=== PATIENT | male | born 1975 | race Caucasian/White ===

== ENCOUNTER 2018-06-13 20:36 | Emergency (ER) | payer MEDICAID, SELFPAY ==
[2018-06-13] VITALS (9 sets, daily range): BP systolic 98–128; BP diastolic 57–71; PULSE 97–115; RESP 12–32; TEMP 37.1–39.3; O2SAT 95–100
[2018-06-13] MEDS: Acetaminophen 500 MG TAB 1000 MG PO (20:49)
[2018-06-13] MEDS: Normal Saline 1,000 ML 1000 ML IV (20:50)
--- NOTE | 2018-06-13 20:50 | DI.RPTCT_ITS ---
SYMPTOM/DIAGNOSIS: SOB, , ELEVATED LFT'S, ABD PAIN PA AND LATERAL CHEST: There is a questionable faint area of infiltration in the left lower lobe suggested only on the frontal examination. An 8 mm. nodular density in the right suprahilar region is unchanged when compared with previous images. There is no pleural effusion. There is no pneumothorax. The heart is within normal limits in size. The mediastinum and tracheal air column are intact. Degenerative changes involving the dorsal spine are of mild degree. SUMMARY: Question area of infiltration involving the left lower lobe which could represent atelectasis or infection. An 8 mm. right suprahilar density is unchanged when compared with previous images. ABDOMEN AND PELVIC CT: The study was carried out with an intravenous injection of 100 cc's of Omnipaque 350. There is some linear atelectasis and/or scarring involving the lung bases. Periportal edema is noted within the liver. The liver is enlarged measuring up to 17.5 cm. craniocaudal. Gallbladder wall prominence is demonstrated and pericholecystic fluid is identified. The pancreas is unremarkable. There is no evidence of ductal dilatation. The spleen is unremarkable. There is some thickening of the left adrenal unchanged when compared with previous images. The kidneys are unremarkable. The appendix is normal. The bladder is unremarkable. The reproductive organs as visualized are unremarkable. The prostate is heterogeneous. There is no evidence of free air or free fluid in the intraperitoneal space. Degenerative changes involving the skeleton are noted. No acute bony abnormality is seen. The soft tissues are unremarkable. There is no evidence of an aortic aneurysm. There is no evidence of lymphadenopathy. SUMMARY: Periportal edema in the liver is noted. This finding can be seen in acute hepatitis, congestive heart failure, progressive hydration or secondary to cardiac congestion. Given the hepatomegaly, the findings should be correlated with concern for acute hepatitis. There is gallbladder wall prominence and pericholecystic fluid. This may be related to the liver abnormalities but should be correlated with any concern for acute cholecystitis. If indicated, an ultrasound could be obtained. Note is made of some wall prominence in the distal esophagus. This may be related to ingested products but should be correlated with any concern for hemorrhage. There is wall prominence in some small bowel loops in the upper abdomen. This could be related to the liver abnormalities or enteritis. Note is also made of a 5 mm. left pulmonary nodule. If this is a low risk patient, then a follow up chest CT in 6-12 months could be obtained. If this is a high risk patient, the initial follow up could be obtained at 6- 12 months and if unchanged at that time, then 18-24 months.
--- NOTE | 2018-06-13 20:51 | ED.GENADUL_ITS ---
Disposition Clinical Impression: Hepatitis, CAP (community acquired pneumonia) Disposition: HOME Condition: Stable Instructions: Community Acquired Pneumonia (ED) Additional Instructions: you are being treated for community acquired pneumonia. You were also found to have hepatitis. You need to follow up with your primary care provider within a week. You also need to inform them of the nodules on your xray as these will need repeat xrays/cat scans if you have nauea/vomit take zofran. For fever or pain take ibuprofen, follow dosing instructions on packaging. Avoid tylenol for now if you have severe worsening pain or persistent vomit return to the emergency department Prescriptions: Ondansetron ODT [Zofran Odt] 4 mg PO Q8H PRN PRN #30 tabef PRN Reason: Nausea / Vomiting Levofloxacin 750 mg PO DAILY #6 tablet Medical Decision Making - Lab Data Results reviewed for labs ordered during visit: Yes - Radiology Data Radiology results: report reviewed, image reviewed - Medical Decision Making PT here with reports of feeling warm for 4 days but has been working outside in hot weather. HAs shortness of breath but no cough, will xray to eval for pna, eval for uti and also eval for rhabdo and monitor. 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 No murmur or ivdu and no stigmata of endocarditis pt feeling better, hr now 90, is ambulating on his own with steady gait, awaiting albs and imaging labs show elevated lfts, lactate 4 which could be from dehydration, will recheck after hydration. He continues to feel well, will image given the elevated lfts pt's ct shows periportal edema in the liver, some gallbladder wall prominence and pericholceystic fluid which is likely related to the liver abnormalities. HE has absolutely no abdominal pain on exam and negative iwseman's sign so doubt acute cholecystitis. They also note increased denisty in distal esophagus/ proximal stomach that is ingeted products or blood products. HAs heme neg stool and no melena and stable h/h so doubt gi bleed. Has pulmonary nodules as well. He now states he has used IV drugs in the past, last 4-6 months ago. I suspect he likely has hepatitis C. His labs are not significantly abnormal to require hospitalization and he is tolerating PO. I will prescribe abx to cover for CAP based on his xray findings and informed him of his nodules. He was informed he needs to f/u with his pcp within a week for the hepatitis and pneumonia and return precautions given - Differential Diagnosis rhabdo, heat stroke, pneumonia, tick borne illness History of Present Illness - General Chief complaint: SOB Stated complaint: SOB Time Seen by Provider: 06/13/18 20:37 Source: patient Mode of arrival: wheelchair Limitations: no limitations - History of Present Illness Initial comments: 43 yo male with no chronic medical conditions comes in with chief complaint of feeling warm intermittently for 4 days. 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 He denies cough though states he has some mild. He denies abdominal pain, n/v, rashes or recent travel MD Complaint: feeling warm Onset/Timin -: days(s) Improves with: none Worsens with: none Associated Symptoms: weakness Treatments Prior to Arrival: none - Related Data Levofloxacin 750 mg PO DAILY #6 tablet 06/13/18 Ondansetron ODT [Zofran Odt] 4 mg PO Q8H PRN PRN #30 tabef 06/13/18 Allergies Allergy/AdvReac Type Severity Reaction Status Date / Time gabapentin Allergy Intermediate Itching, Unverified 06/13/18 20:41 jumpy Review of Systems Constitutional: fever Respiratory: shortness of breath. denies: cough Cardiovascular: denies: chest pain Gastrointestinal: denies: abdominal pain, nausea, vomiting Neurological: denies: headache Comment: All other systems reviewed and negative Past Medical History - Past Medical History Medical history: no medical history Vitiligo Surgical history: non-contributory - Social History Alcohol use: occasionally Drug use: marijuana General Exam - General Limitations: no limitations General appearance: alert, in no apparent distress - Head Head exam: Present: atraumatic - Eye Eye exam: Present: normal apperance - ENT ENT exam: Present: mucous membranes moist - Neck Neck exam: Present: normal inspection, full ROM. Absent: meningismus - Respiratory Respiratory exam: Present: normal lung sounds bilaterally. Absent: respiratory distress - Cardiovascular Cardiovascular Exam: Present: normal rhythm, tachycardia, normal heart sounds - GI/Abdominal GI/Abdominal exam: Present: soft. Absent: distended, tenderness - Extremities Exam Extremities exam: Present: normal inspection. Absent: pedal edema, calf tenderness - Neurological Exam Neurological exam: Present: alert, oriented X3. Absent: motor sensory deficit - Psychiatric Psychiatric exam: Present: anxious - Skin Skin exam: Present: warm Course Vital Signs - 24 hr 06/13/18 06/13/18 20:39 20:42 Temperature 102.7 F H Pulse 115 H Respiratory 32 H 32 H Rate Blood Pressure 128/71 Pulse Oximetry 100
[2018-06-13 20:52] LABS: Lactate-non-spesis 4.3 mmol/L (0.6-1.4)
[2018-06-13 20:57] LABS: Abs Immature Grans 0.03 k/cumm (0.0-0.09); Absolute Basophil Count 0.02 k/cumm (0.0-0.2); Absolute Eosinophil Count 0.06 k/cumm (0.0-0.7); Absolute Lymphocyte Count 0.39 k/cumm (1.2-3.4); Absolute Monocyte Count 0.03 k/cumm (0.11-0.7); Absolute Neutrophil Count 2.75 k/cumm (1.2-6.7); Basophils % 0.6; Eosinophils % 1.8; HCT 45.4 % (40.0-50.0); HGB 15.9 g/dL (13.5-17.5); Immature Grans % 0.9; Lymphocytes % 11.9; Mean Corpuscular Hemoglobin 31.3 pg (27.0-33.0); Mean Corpuscular Volume 89.4 fL (80-95); Mean Platelet Volume 10.6 fL (8.0-11.0); Monocytes % 0.9; Neutrophils % 83.9; Platelet Count 113 x1000/uL (130-400); RBC 5.08 m/cumm (4.50-6.00); RBC Distribution Width 13.6 % (11.8-14.1); White Blood Cell Count 3.28 k/cumm (4.4-10.8)
[2018-06-13 21:10] LABS: ALT 156 U/L (12-78); AST 107 U/L (15-37); Albumin 3.1 g/dL (3.4-5.0); Alkaline Phosphatase 359 U/L (46-116); Anion Gap 14.9 mmol/L (3-11); BUN 12 mg/dL (7-18); Bilirubin, Total 1.3 mg/dL (0.2-1.0); CO2 21.1 mmol/L (21.0-32.0); CREATININE 1.38 mg/dL (0.70-1.30); Calcium 8.7 mg/dL (8.5-10.1); Chloride 98 mmol/L (98-107); Creatine Kinase 51 U/L (39-308); Estimated GFR 56.78 (mL/min/1.73m2); Glucose 152 mg/dL (70-100); Magnesium 1.6 mg/dL (1.8-2.4); Sodium 134 mmol/L (136-145); Total Protein 6.8 g/dL (6.4-8.2)
[2018-06-13] MEDS: Lactated Ringers 1,000 ML 1000 ML IV ×2 (21:10→22:22)
[2018-06-13 21:15] LABS: Potassium 2.9 mmol/L (3.5-5.1)
[2018-06-13] MEDS: Potassium Chloride 20 MEQ TABCR 40 MEQ PO (21:31)
--- NOTE | 2018-06-13 21:36 | DI.VRAD_ITS ---
EXAM: XR Chest, 2 Views CLINICAL HISTORY: 43 years old, male; Signs and symptoms; Other: Shortness of breath TECHNIQUE: Frontal and lateral views of the chest. COMPARISON: CR - RIGHT RIBS TO INCLUDE CXR 2016-10-12 15:35 FINDINGS: Lungs: Hilar shadows unchanged. Seen only on the frontal radiograph are left retrocardiac streaky opacities that could represent atelectasis or infection. An 8mm nodular density in the right suprahilar region is unchanged. Comparison with any older imaging studies to document long-term stability would be beneficial. Pleural space: No pneumothorax. Heart: Cardiac shadow unchanged. Mediastinum: Mediastinal contour is unchanged. Bones/joints: Skeletal degenerative changes. IMPRESSION: 1. Seen only on the frontal radiograph are left retrocardiac streaky opacities that could represent atelectasis or infection. 2. An 8mm nodular density in the right suprahilar region is unchanged. Comparison with any older imaging studies to document long-term stability would be beneficial. 3. Other findings as above. Dictated and Authenticated by: Blossom Valero MD. Ordering:MAX BLAKE MD
[2018-06-13 21:48] LABS: Bilirubin Negative (Negative); Blood Negative (Negative); Clarity Clear; Glucose Negative (Negative); Ketones Negative (Negative); Leukocyte Esterase Negative (Negative); Nitrite Negative (Negative); Specific Gravity <= 1.005 (1.005-1.025); pH 5.5 (5-8)
[2018-06-13] MEDS: Omnipaque 350 MG/ML 100 ML BTL IV (22:37)
[2018-06-13 22:53] LABS: Lactate-non-spesis 2.2 mmol/L (0.6-1.4)
--- NOTE | 2018-06-13 22:57 | DI.VRAD_ITS ---
EXAM: CT Abdomen and Pelvis With Intravenous Contrast CLINICAL HISTORY: 43 years old, male; Signs and symptoms; Other: Elevated lfts, abdominal pain TECHNIQUE: Axial computed tomography images of the abdomen and pelvis with intravenous contrast. All CT scans at this facility use at least one of these dose optimization techniques: automated exposure control; mA and/or kV adjustment per patient size (includes targeted exams where dose is matched to clinical indication); or iterative reconstruction. Coronal and sagittal reformatted images were created and reviewed. CONTRAST: 100 mL of omnipaque 350 administered intravenously. COMPARISON: CT - RENAL COLIC WO CONTRAST 2011-08-05 08:29 FINDINGS: Lung bases: Linear atelectasis or scarring at the lung bases. Series 4 image 3 demonstrates a 6 mm left pulmonary nodule. ABDOMEN: Liver: There is periportal edema within the liver. There is hepatomegaly with the liver measuring 17.5 cm craniocaudally. Gallbladder and bile ducts: There is some gallbladder wall prominence and pericholecystic fluid. Pancreas: Unremarkable. No mass. No ductal dilation. Spleen: Unremarkable. No splenomegaly. Adrenals: Bulky appearance to the left adrenal gland is unchanged. Kidneys and ureters: Unremarkable. No solid mass. No hydronephrosis. Stomach and bowel: Evaluation of the bowel is limited secondary to the lack of oral contrast. There is increased density within the distal esophagus and proximal stomach which may be related to ingested products but should be correlated with any concern for blood products. There is wall prominence of the distal esophagus and proximal stomach which should be correlated with any concern for inflammation or other abnormalities.There is wall prominence to the some small bowel in the left hemiabdomen which can be seen with liver abnormalities or enteritis in the appropriate clinical setting.There is a small amount of adjacent stranding. PELVIS: Appendix: Normal appendix. Bladder: Urinary bladder within normal limits. Reproductive: Heterogeneous prostate. ABDOMEN and PELVIS: Intraperitoneal space: Unremarkable. No free air. No significant fluid collection. Bones/joints: Skeletal degenerative changes. No acute fracture. No dislocation. Soft tissues: Unremarkable. Vasculature: Unremarkable. No abdominal aortic aneurysm. Lymph nodes: There is a small periadrenal lymph node measuring 9 mm on short axis. IMPRESSION: 1. Periportal edema in the liver. This can be seen with acute hepatitis, congestive cardiac failure, aggressive hydration, or secondary cardiac congestion. Given the hepatomegaly, finding should be correlated with concern for acute hepatitis. 2. Some gallbladder wall prominence and pericholecystic fluid. This may be related to the liver abnormalities but should be correlated with any concern for cholecystitis. If indicated, ultrasound could be considered. 3. Increased density within the distal esophagus/proximal stomach. This may be related to ingested products but should be correlated with any concern for blood products. There is wall prominence of the distal esophagus/proximal stomach. 4. Wall prominence to some of the small bowel in the left hemiabdomen. This can be seen in the setting of liver abnormalities or enteritis in the appropriate clinical setting. There is a small amount of adjacent fat stranding. 5. 5 mm left pulmonary nodule. For low-risk patients recommend follow-up chest CT at 6-12 months. If unchanged consider an additional follow-up CT at 18-24 months. For high-risk patients (smoking history or other known risk factors) initial follow-up chest CT at 6-12 months and if unchanged, 18-24 months. Other findings as above. Dictated and Authenticated by: Blossom Valero MD. Ordering:MAX BLAKE MD
[2018-06-13] MEDS: LEVOFLOXACIN 500 MG, LEVOFLOXACIN 250 MG 750 MG PO (23:30)
--- NOTE | 2018-06-14 15:25 | PDOC.ERCMPRO ---
Care Management Progress Note 06/14-Dr. Vega requested assistance with a PCP (Gilberto) f/u in one week for hepatitis. Referral faxed to [facility].
[2018-06-15 11:37] LABS: Hepatitis A Antibody IgM Negative (NEGAT); Hepatitis B Core Antibody Negative (NEGAT); Hepatitis B surface Ag Negative (NEGAT); Hepatitis C Ab w Rflx HCV PCR Reactive (NEGAT)
[2018-06-15 12:56] LABS: Lyme Ab w Rflx to Lyme Confirm Negative
[2018-06-15 23:26] LABS: Anaplasma phagocytophilum Negative (Negative); B. miyamotoi PCR Negative (Negative); Babesia divergens/MO-1 Negative (Negative); Babesia duncani Negative (Negative); Babesia microti Negative (Negative); Ehrlichia chaffeensis Negative (Negative); Ehrlichia ewingii/canis Negative (Negative); Ehrlichia muris eauclairensis Negative (Negative)
== END 2018-06-13 23:40 | disposition home or self-care (01) ==
PROVIDERS: Emergency Provider Emergency Medicine; PCP Nurse Practitioner
DX: B17.9 Acute viral hepatitis, unspecified (principal); J18.9 Pneumonia, unspecified organism; R91.1 Solitary pulmonary nodule; R93.2 Abnormal findings on diagnostic imaging of liver and biliary tract
CPT/HCPCS: 36415; 80053; 82550; 86704; 86709; 86803; 87340; 96360; 96361; 99285; 71046; 74177; 81003; 83605; 83735; 85025; 86618; 87522; 87798; J3490

== ENCOUNTER → 2018-06-29 17:53 | Outpatient (REF) | payer MEDICAID, SELFPAY ==
[2018-06-29 18:58] LABS: BUN 13 mg/dL (7-18); CREATININE 0.97 mg/dL (0.70-1.30); Calcium 8.5 mg/dL (8.5-10.1); Glucose 94 mg/dL (70-100)
[2018-06-29 18:59] LABS: ALT 116 U/L (12-78); AST 83 U/L (15-37); Albumin 3.4 g/dL (3.4-5.0); Alkaline Phosphatase 115 U/L (46-116); Anion Gap 11.2 mmol/L (3-11); Bilirubin, Total 0.6 mg/dL (0.2-1.0); CO2 24.8 mmol/L (21.0-32.0); Chloride 103 mmol/L (98-107); Potassium 3.8 mmol/L (3.5-5.1); Sodium 139 mmol/L (136-145)
[2018-07-03 10:46] LABS: HIV-1/2 Ag & Ab Screen Negative (NEGAT)
[2018-07-03 21:48] LABS: HCV Genotype 1a (Undetected)
== END ==
LOC: NCHCN 17:53
PROVIDERS: PCP Nurse Practitioner; Visit Provider Nurse Practitioner
DX: B19.20 Unspecified viral hepatitis C without hepatic coma (principal); Z11.4 Encounter for screening for human immunodeficiency virus [HIV]
CPT/HCPCS: 80053; 87389; 87521

== ENCOUNTER 2018-07-12 23:21 | Emergency (ER) | payer MEDICAID, SELFPAY ==
--- NOTE | 2018-07-12 00:10 | DI.RAD_ITS ---
SYMPTOM/DIAGNOSIS: FEVER, CHILLS, COUGH PA AND LATERAL CHEST: Comparison is made with 06/13/18. The heart size is normal. The lungs show mild scarring but are otherwise clear. There is stable thoracic kyphosis without evidence of compression fractures. Endplate osteophytes are seen. IMPRESSION: No acute abnormality.
[2018-07-12 23:31] VITALS: BP 126/70; PULSE 116; RESP 22; TEMP 38.2; O2SAT 98
[2018-07-12 23:38] VITALS: PULSE 109; RESP 26; O2SAT 96
[2018-07-12 23:40] VITALS: PULSE 110; RESP 24; O2SAT 97
[2018-07-12 23:45] VITALS: BP 115/69; PULSE 111; PULSE 113; RESP 37; O2SAT 96
[2018-07-12 23:50] VITALS: PULSE 105; RESP 13; O2SAT 97
[2018-07-13] VITALS (9 sets, daily range): BP systolic 105–109; BP diastolic 60–65; PULSE 88–106; RESP 12–22; TEMP 37.5; O2SAT 92–100
--- NOTE | 2018-07-13 00:22 | DI.VRAD_ITS ---
EXAM: XR Chest, 2 Views CLINICAL HISTORY: 43 years old, male; Signs and symptoms; Cough and fever and other: Chills TECHNIQUE: Frontal and lateral views of the chest. COMPARISON: CR - RIGHT RIBS TO INCLUDE CXR 10/12/2016 3:35 PM FINDINGS: Lungs: Unremarkable. No consolidation. Pleural space: Unremarkable. No pneumothorax. Heart: Unremarkable. No cardiomegaly. Mediastinum: Unremarkable. Bones/joints: Unremarkable. Bilateral nipple shadows. IMPRESSION: No acute findings. Dictated and Authenticated by: Serjio Calix MD. Ordering:MAYDA CRESPO MD
[2018-07-13] MEDS: Ketorolac 30 MG/ML VIAL IVP (00:25)
[2018-07-13] MEDS: Normal Saline 1,000 ML 2000 ML IV (00:25)
[2018-07-13 00:30] LABS: Abs Immature Grans 0.02 k/cumm (0.0-0.09); Absolute Basophil Count 0.02 k/cumm (0.0-0.2); Absolute Eosinophil Count 0.13 k/cumm (0.0-0.7); Absolute Lymphocyte Count 0.92 k/cumm (1.2-3.4); Absolute Monocyte Count 0.39 k/cumm (0.11-0.7); Absolute Neutrophil Count 7.03 k/cumm (1.2-6.7); Basophils % 0.2; Eosinophils % 1.5; HCT 42.6 % (40.0-50.0); HGB 14.8 g/dL (13.5-17.5); Immature Grans % 0.2; Lymphocytes % 10.8; Mean Corp. HGB Concentration 34.7 g/dL (32.0-36.0); Mean Corpuscular Hemoglobin 30.5 pg (27.0-33.0); Mean Corpuscular Volume 87.8 fL (80-95); Mean Platelet Volume 9.6 fL (8.0-11.0); Monocytes % 4.6; Neutrophils % 82.7; Platelet Count 231 x1000/uL (130-400); RBC 4.85 m/cumm (4.50-6.00); RBC Distribution Width 13.5 % (11.8-14.1); White Blood Cell Count 8.51 k/cumm (4.4-10.8)
--- NOTE | 2018-07-13 00:31 | ED.GENADUL_ITS ---
Discharge Plan Discharge Details Chief Complaint: GenMedical Clinical Impression: Sepsis, Endocarditis, Cardiac murmur, Fever, Acute dehydration Primary Care Provider: Aileen Macias ED Provider: Tavo Faria Disposition Patient Disposition: AGAINST MEDICAL ADVICE Home Meds and New Rx's Prescriptions: New clindamycin HCl 150 mg capsule 450 mg PO TID 10 Days Qty: 90 RF: 0 levofloxacin [Levaquin] 750 mg tablet 750 mg PO DAILY 10 Days Qty: 10 RF: 0 Discharge Instructions Instructions: Endocarditis (GEN), Dehydration (ED) Additional Instructions: Please take the antibiotic as directed. Please follow-up with your primary care provider as soon as possible for reassessment. If you notice any worsening of your symptoms, or any new symptoms such as vomiting, diarrhea, fever, chills, shortness of breath, chest pain, numbness, weakness, or fainting , please return immediately to the emergency department for reevaluation. Please follow up with your primary care provider as soon as possible for reassessment and reevaluation. As always, it was a pleasure participating in your medical care today. Referrals: Aileen Macias [Primary Care Provider] - Medical Decision Making MDM Narrative Medical decision making narrative: This is a 42-year-old male who presents for tachycardia, fatigue, headache and fever. Headache is very mild. Physical exam shows no signs of meningitis. Patient is notably tachycardic, and does look notably dehydrated. He was recently diagnosed hepatitis C, did receive his hepatitis C immunization shots today. The patient. He states that he has had on reactions like this to vaccines in the past, but he is also had symptoms like this in the past when he has been dehydrated. Physical exam demonstrates a dehydrated male, is in no acute distress. He does have a cardiac murmur, however patient states that he has never been told he has a murmur. He demonstrates no signs of splinter hemorrhages or Osler nodes or Janeway lesions. His regions that he normally shoots up for his cocaine shows no signs of abscess or erythema. This is on his arms bilaterally. No significant abnormalities are noted. The patient's tachycardia, fever, and history of IV drug use especially in the light of his cardiac murmur is concerning. This may be secondary to dehydration versus an atypical reaction to vaccine although I feel this less likely. We will rehydrate the patient, evaluate for potential signs of infection, and reevaluate. 12: 40 2 AM Per virtual radiology the patient's chest x-ray is read as no acute findings with no evidence of pneumonia. EKG 00: 36 Rate 98, sinus rhythm, MI 148, QTc 426, QRS 124, right bundle branch block with left axis bifascicular block, and PVCs are noted. ST elevation noted in V2, and V3. Negative for STEMI per SCARBOSSA criteria. No Q waves. No inverted T waves. Previous EKG from 2006 demonstrates the same right bundle branch block with consistent ST elevation in V2 and V3. No significant acute change 1:35 AM Patient's laboratory workup has returned. No significant white count. Fever has improved with Toradol. Patient does demonstrate a notably elevated ESR and CRP. This may be multifactorial, potentially from his hepatitis or potential endocarditis. Troponin is normal. EKG shows no acute changes from prior EKGs. Patient does continue to have the murmur. Heart rate has improved. He is feeling much better after the fluids. With the patient's fever, elevated ESR and CRP, history of IV drug use, as well as his new murmur auscultated on my exam I am very concerned for potential infective endocarditis. I discussed with the patient the need for inpatient admission, echocardiogram, and IV antibiotics unfortunately the patient made it explicitly clear that this was not congruent with his current plan or thinking. The patient took out his IV, and refused any IV antibiotics. He refused admission, and wanted to go home. I spent a long time speaking with the patient, with nurse at bedside explaining the risks and benefits of leaving and not getting the appropriate management, not waiting for blood cultures to return, and having potential endocarditis, with the worst risks being in this being potentially very likely. I attempted to determine why the patient did not want to stay, and he stated I just want to go to work in go home, I do not need any more help. If I , I , and it is all up to God. The patient shows no malleolus at this time, but simply does not want to stay. The patient is able to speak clearly. There is no demonstration of any slurring of speech. There is evidence of clear decision making capacity. Patient is able to ambulate well without any difficulty. There are no signs of ataxia or stumbling motions. Patient is of a appropriate age to make decisions. The patient is of sound mind, appears clinically sober, and has capacity to make decisions by my clinical exam. We have provided options for treatment and discussed the risks and benefits of these options and refusing these options, including and disability specific to the patient's pathology. Patient is able to discuss the risks and benefits and alternatives of treatment and refusing treatment. We have tried to involve the patient's family or support group that was present here or by contacting them on the phone. The patient chooses to leave before evaluation and treatment is complete AGAINST MEDICAL ADVICE. Although this is certainly not ideal we will give the patient oral Levaquin and clindamycin here in the ED prior to discharge which she has agreed to take. Additionally we will give him a prescription of this for home use. I do not feel that this is ideal management, however given the patient's demands, and lack of cooperation I feel that this is the best we can do at this time. I had a very clear discussion with the patient regarding the need to return if he does have any change in opinion, as well as the very important need for follow- up with his PCP as soon as possible. I discussed with the patient the absolute importance of close follow-up with his PCP. HPI - General Adult General Date/Time Provider Initiated Documentation: 07/12/18 23:38 . HPI Narrative: This is a 43-year-old male who presents today for fever , malaise, mild headache. 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 He states that he did go and was recently diagnosed with hepatitis C and received his hepatitis shots/immunizations for hepatitis a and B today. Patient states that he was feeling fine throughout the day, and then suddenly later this evening he suddenly felt very ill. The patient does admit to a history of IV drug use, and did use 2-3 days ago. He normally uses cocaine but he denies using any for the last 48 hours. He denies any heroin use or methamphetamine use. He does admit to a very mild cough that started today. He denies any vomiting, diarrhea. He does not drink much water throughout the day. He denies any severe headache, vision changes, numbness, tingling, weakness, chest pain, shortness of breath. He does admit to having similar symptoms when he had immunizations in the past, but also secondary to dehydration from being a road conductor not drinking much water. Patient denies any recent surgical history. He denies any pertinent family history. He has no other complaints at this time. Related Data Previous Rx's Medication Instructions Recorded clindamycin HCl 450 mg PO TID 10 Days #90 cap 07/13/18 levofloxacin [Levaquin] 750 mg PO DAILY 10 Days #10 tab 07/13/18 Allergies Allergy/AdvReac Type Severity Reaction Status Date / Time gabapentin Allergy Intermediate Itching, Unverified 06/13/18 20:41 jumpy General Stated Complaint: GenMedical CY: 3 Review of Systems Review of Systems 10 point review of systems was performed, pertinent positives and negatives are noted in the history of present illness. [facility] Social History Smoking/Tobacco Use Status: Current every day Exam Narrative Exam Narrative: 1.Const: Well-nourished, Well-developed, appearing stated age 2.Eyes: PERRL, no conjunctival injection, and symmetrical lids. 3.ENT: Atraumatic external nose and ears. Moist MM. Neck: Symmetric, trachea midline, No thyromegaly. 4.CVS: +S1/S2, No gallops. Peripheral pulses 2+ and equal in all extremities. Brisk capillary refill in all extremities. The patient does demonstrate a grade 2 systolic murmur auscultated over the left and right parasternal spaces. 5.RESP: Unlabored respiratory effort. Clear to auscultation bilaterally. No wheezes rales or rhonchi 6.GI: Soft, Nontender/Nondistended, No hepatosplenomegaly. No guarding or rebound. 7.MSK: Normocephalic/Atraumatic, Extremities w/o deformity or ttp No cyanosis or clubbing, Normal movement of all extremities 8.Skin: Warm, Dry. No rashes or lesions. No Osler nodes, Janeway lesions, or spine hemorrhages. 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 Sensation grossly intact, no focal neurologic deficits. Patient demonstrates good movement of cervical neck. There is no nuchal rigidity, no nuchal tenderness. Patient is able to flex the neck without any difficulty or significant pain. Negative Kernig's and Brudzinski sign. 10.Psych: (AAO) x3. Appropriate mood and affect Course Vital Signs Temperature 38.2 C H 07/12/18 23:31 Pulse 116 H 07/12/18 23:31 Respiratory Rate 22 07/12/18 23:31 Blood Pressure 126/70 07/12/18 23:31 Pulse Oximetry 98 07/12/18 23:31 Temperature 38.2 C H 07/12/18 23:31 Pulse 116 H 07/12/18 23:31 Respiratory Rate 22 07/12/18 23:31 Blood Pressure 126/70 07/12/18 23:31 Pulse Oximetry 98 07/12/18 23:31
[2018-07-13 00:46] LABS: ALT 65 U/L (12-78); AST 40 U/L (15-37); Albumin 3.3 g/dL (3.4-5.0); Alkaline Phosphatase 112 U/L (46-116); Anion Gap 10.1 mmol/L (3-11); BUN 11 mg/dL (7-18); C-Reactive Protein 1.23 mg/dL (0.0-0.3); CO2 21.9 mmol/L (21.0-32.0); CREATININE 1.15 mg/dL (0.70-1.30); Calcium 8.8 mg/dL (8.5-10.1); Chloride 98 mmol/L (98-107); Glucose 107 mg/dL (70-100); Potassium 3.3 mmol/L (3.5-5.1); Sodium 130 mmol/L (136-145); Total Protein 7.4 g/dL (6.4-8.2)
[2018-07-13 00:49] LABS: Troponin I < 0.02 ng/mL (0.00-0.06)
[2018-07-13 01:06] LABS: ESR 41 MM/HR (0-15)
[2018-07-13 01:36] LABS: Bilirubin Negative (Negative); Blood Negative (Negative); Clarity Clear; Glucose Negative (Negative); Ketones Negative (Negative); Leukocyte Esterase Negative (Negative); Nitrite Negative (Negative); Specific Gravity 1.015 (1.005-1.025); pH 7.5 (5-8)
[2018-07-13] MEDS: Clindamycin 150 MG CAP 450 MG PO (01:41)
[2018-07-13] MEDS: LEVOFLOXACIN 500 MG, LEVOFLOXACIN 250 MG 750 MG PO (01:41)
[2018-07-13 01:52] LABS: *AMPHETAMINES SCREEN URINE Negative (Negative); *BARBITURATES SCREEN URINE Negative (Negative); *BENZODIAZEPINES SCREEN URINE Negative (Negative); Cannabinoids THC POSITIVE (Negative); Cocaine Screen,Urine POSITIVE (Negative); METHADONE URINE SCREEN Negative (Negative); OPIATES URINE SCREEN POSITIVE (Negative)
[2018-07-13 01:55] LABS: Tricyclic Antidepressants Negative (Negative)
--- NOTE | 2018-07-15 08:30 | W.ED.FU ---
Lab had noted that patient had positive blood culture results from blood cultures done on 07/13/18. Blood culture results noted gram-positive rods. Patient was called this morning on number listed and female had answered stating he was no longer living at this address. She gave me a cell phone number [phone] which I called and left a message for patient to call back the emergency department regarding his lab results. Upon review of patient's chart from 07/13/18, he had a diagnosis of concern for sepsis, endocarditis and had left AGAINST MEDICAL ADVICE.
--- NOTE | 2018-07-17 19:18 | W.ED.FU ---
The patient's blood cultures have returned positive for gram-positive rods. The patient was contacted on of my colleagues however they were unable to get hold of him. And then contacted the patient the next morning at [phone]. I did discuss the case with the patient, as well as his positive blood culture results. Patient states that he is feeling slightly better at this time but does still get some fevers and chills occasionally. He has scheduled an appointment with his primary care provider and he will be following up later this week with his PCP. I again informed him that it is my recommendation that he return to the ER for admission for IV antibiotics. Patient states that he will continue with his current plan of being home and taking the antibiotics as directed. I answered all questions that the patient has. I have extensively reviewed the treatment plan with the patient. I have addressed all patient concerns at this time. The patient was made aware of what symptoms to monitor for that would warrant a return to the emergency department. Discussed the plan with the patient, they demonstrate verbal understanding and agreement with our assessment and plan at this time.
--- NOTE | 2018-07-17 19:21 | ED.FU.B_ITS ---
The patient's blood cultures have returned positive for gram-positive rods. The patient was contacted on of my colleagues however they were unable to get hold of him. And then contacted the patient the next morning at . I did discuss the case with the patient, as well as his positive blood culture results. Patient states that he is feeling slightly better at this time but does still get some fevers and chills occasionally. He has scheduled an appointment with his primary care provider and he will be following up later this week with his PCP. I again informed him that it is my recommendation that he return to the ER for admission for IV antibiotics. Patient states that he will continue with his current plan of being home and taking the antibiotics as directed. I answered all questions that the patient has. I have extensively reviewed the treatment plan with the patient. I have addressed all patient concerns at this time. The patient was made aware of what symptoms to monitor for that would warrant a return to the emergency department. Discussed the plan with the patient, they demonstrate verbal understanding and agreement with our assessment and plan at this time.
== END 2018-07-13 01:53 | disposition left against medical advice (07) ==
LOC: ER 07-13 01:53
PROVIDERS: Emergency Provider Student in an Organized Health Care Education/Training Program; PCP Nurse Practitioner
DX: I33.9 Acute and subacute endocarditis, unspecified (principal); A41.89 Other specified sepsis; B96.89 Other specified bacterial agents as the cause of diseases classified elsewhere; E86.0 Dehydration; B17.10 Acute hepatitis C without hepatic coma; F11.10 Opioid abuse, uncomplicated; F14.10 Cocaine abuse, uncomplicated; Z53.29 Procedure and treatment not carried out because of patient's decision for other reasons
CPT/HCPCS: 36415; 80053; 80307; 85652; 87040; 87077; 93005; 96361; 96374; 99285; 71046; 81003; 84484; 85025; 86140; 93010; 99284; J1885

== ENCOUNTER 2018-07-18 16:46 | Inpatient (IN) | payer MEDICAID, SELFPAY ==
[2018-07-18 16:53] VITALS: BP 119/80; PULSE 74; RESP 16; TEMP 36.7
[2018-07-18 17:15] VITALS: RESP 18
[2018-07-18 17:31] LABS: Lactate-non-spesis 1.5 mmol/L (0.6-1.4)
--- NOTE | 2018-07-18 17:34 | DI.RAD_ITS ---
SYMPTOM/DIAGNOSIS: CHEST PAIN, FEVER, POSITIVE BLOOD CULTURES PA AND LATERAL CHEST: Comparison is made with 07/12/18. Heart size and pulmonary vasculature are within normal limits. The lungs are clear and well expanded. No effusions or pneumothoraces are identified. There is again seen mild exaggeration of the kyphotic curvature of the lumbar spine. This is unchanged compared to chest xray dated 10/12/16. No acute fractures are seen in the thoracic spine. Vertebral body heights appear stable. Mild degenerative changes are seen in the thoracic spine. IMPRESSION: No acute pulmonary process.
[2018-07-18 17:35] LABS: Abs Immature Grans 0.02 k/cumm (0.0-0.09); Absolute Basophil Count 0.04 k/cumm (0.0-0.2); Absolute Eosinophil Count 0.26 k/cumm (0.0-0.7); Absolute Lymphocyte Count 2.04 k/cumm (1.2-3.4); Absolute Monocyte Count 0.43 k/cumm (0.11-0.7); Absolute Neutrophil Count 3.48 k/cumm (1.2-6.7); Basophils % 0.6; Eosinophils % 4.1; HCT 44.1 % (40.0-50.0); Immature Grans % 0.3; Lymphocytes % 32.5; Mean Corpuscular Volume 88.2 fL (80-95); Mean Platelet Volume 9.6 fL (8.0-11.0); Monocytes % 6.9; Neutrophils % 55.6; Platelet Count 293 x1000/uL (130-400); RBC Distribution Width 13.7 % (11.8-14.1); White Blood Cell Count 6.27 k/cumm (4.4-10.8)
[2018-07-18] MEDS: Normal Saline 1,000 ML 1000 ML IV (17:35)
--- NOTE | 2018-07-18 17:39 | W.ED.GENAD ---
Discharge Plan Disposition Patient Disposition: [facility] INPATIENT Condition: Stable Discharge Details Chief Complaint: GenMedical Clinical Impression: Bacteremia, Endocarditis, Chronic fever, IV drug abuse Reason For Visit: BACTEREMIA Admit Date/Time: 07/18/18 20:35 Admit Provider: Manohar Bowman Attending Provider: Manohar Bowman Primary Care Provider: Aileen Macias ED Provider: Lety Russell Discharge Instructions Diet:: as tolerated Discharge Data Discharge Date/Time-TO BE ENTERED AT DEPARTURE: 07/18/18 21:09 Medical Decision Making MDM Narrative Medical decision making narrative: Patient is a 43-year-old male with a history of IV drug use including cocaine and heroin who presents for fever, headache, chest pain and chills for the past month. Patient was seen here on 07/13/18 for similar symptoms and was recommended for admission as he was noted to have a possible new cardiac murmur with concern for endocarditis considering his history of IVDA but he had refused admission and left AMA at that time. He was sent home with clindamycin and Levaquin and states he has been taking them. Patient was noted to have positive blood cultures of gram-positive rods on 07/14/18. He was called by and recommended to come to the ED at that time but he refused. Patient had a follow-up with his PCP today regarding his recent ED visit and was advised to come to the ED due to his recent positive blood cultures. Blood culture results today noted microbacterium which is usually nonpathogenic and related to a Corynebacterium species. His anaerobic tube noted no growth. Patient states he has not had a fever since last Tuesday. He does still admit to headache, chills and chest pain. He states the chest pain is substernal, aching and constant and admits to occasional shortness of breath. He states his headache is bitemporal and 8/10 at its worse and currently 1/10. He states he has been eating and drinking well and denies abdominal pain, sore throat, ear pain, neck pain or urinary symptoms. Per Dr. Faria's exam on 07/13/18, he had noted a new grade 2 systolic murmur left and right parasternal and pt has no known h/o murmur. It is very faint and I can hear a possible grade 2 right sided systolic murmur. Patient appears nontoxic. He has normal vital signs including no fever. Lungs are clear to auscultation, abdomen soft and nontender, normal ENT exam. No meningeal signs. He has no other obvious foci of infection other than the c/o chest pain and cough and headache and possible new murmur raising concern for endocarditis vs. pneumonia. Denies symptoms signs of ENT infection, pharyngitis, gastroenteritis, meningitis, osteomyelitis. He has no other signs of endocarditis such as Osler nodes, splinter hemorrhages, janeway lesions. As patient is still with symptoms, will place an IV, repeat labs, blood cultures, lactate and obtain a chest x-ray. Will give bolus IV fluids. As patient is noted to have a murmur with his history of IV drug use, he will likely need an echocardiogram and IV antibiotics. 170 --EKG notes a rate of 66, sinus, right bundle branch block, left anterior fascicular block. No acute ST elevation or depression. No acute change from previous. QTc 4 4. QRS 130. 1820 --labs reviewed and essentially unremarkable. White blood cell count 6.27. Lactate 1.5. Urinalysis negative. Chest x-ray negative. Will call [facility] infectious disease for recommendations. 1844 --discussed with [facility] infectious disease - states that if one set of blood cultures is positive, there is a 30% chance of endocarditis, but if 2 sets positive, 70-80% chance of endocarditis. States Corynebacterium is a possible cause of endocarditis. If 2 sets of positive blood cultures, recommends IV antibiotics with vancomycin, echo, TTE or SUMMER and then possible skeletal imaging. Recommend Vanco trough between 15-20. He had stated if patient had one set of positive blood cultures, would likely be contaminant and would recommend stopping antibiotics, with continued daily blood cultures. Recommends calling lab to set up sensitivity testing which will be sent to [facility]. We also discussed the need to search for other sources of infection as indicated. 1899 --I discussed with lab and confirmed that patient has 2 sets of positive blood culture showing Corynebacterium. Will call hospitalist for admission. Patient is agreeable to admission. 1914 --discussed with Dr. Bowman -accepts patient for admission. Lab Data Lab Results 07/18/18 07/18/18 Range/Units 17:15 17:15 WBC 6.27 (4.4-10.8) k/cumm RBC 5.00 (4.50-6.00) m/cumm Hgb 15.0 (13.5-17.5) g/dL Hct 44.1 (40.0-50.0) % MCV 88.2 (80-95) fL MCH 30.0 (27.0-33.0) pg MCHC 34.0 (32.0-36.0) g/dL RDW 13.7 (11.8-14.1) % Plt Count 293 (130-400) x1000/uL MPV 9.6 (8.0-11.0) fL Immature Gran % 0.3 Neutrophils % 55.6 Lymphocytes % 32.5 Monocytes % 6.9 Eosinophils % 4.1 Basophils % 0.6 Absolute Neutrophils 3.48 (1.2-6.7) k/cumm Absolute Lymphocytes 2.04 (1.2-3.4) k/cumm Absolute Monocytes 0.43 (0.11-0.7) k/cumm Absolute Eosinophils 0.26 (0.0-0.7) k/cumm Absolute Basophils 0.04 (0.0-0.2) k/cumm Lactate 1.5 H (0.6-1.4) mmol/L HPI - General Adult General Mode of arrival: ambulatory. Date/Time Provider Initiated Documentation: 07/18/18 17:00. Limitations to Documentation: no limitations. Information obtained by: patient. HPI Narrative: Patient is a 43-year-old male with history of IV drug use including cocaine and heroin who presents for 1 month of fevers, headache, chills and chest pain. Patient was seen here on 07/13/18 for the same symptoms and was found to have a possible new cardiac murmur and recommended for admission for IV antibiotics but he refused and left AMA. He was sent home with clindamycin and Levaquin which he has been taking. Patient had a follow-up appointment with his primary care doctor today for his ED visit and was referred back to the emergency department. Patient states overall his fever has been improving, and has not had a fever that he knows of since last Tuesday. He still admits to occasional headaches, a few times a day 8/10 at its worst and occurring bitemporal. Headache is currently 1/10. He does still admit to occasional chest pain which is substernal, aching and constant and associated with occasional shortness of breath. He admits to occasional her doctor versus dry cough. He denies rash, neck pain, vomiting, diarrhea, abdominal pain, urinary symptoms, sore throat, ear pain, blurry vision, recent travel, sick contacts or recent surgeries. 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 Last IV cocaine use a few days ago, last heroin use unknown. Medications: Levaquin, clindamycin, Motrin Allergies: Gabapentin (restless) PCP: [facility] Related Data Allergies Allergy/AdvReac Type Severity Reaction Status Date / Time gabapentin Allergy Intermediate Itching, Unverified 07/18/18 17:32 jumpy General Stated Complaint: GenMedical CY: 2 Review of Systems Review of Systems All systems reviewed & are unremarkable except as noted in HPI and below Constitutional Reports chills, Denies excessive sweating, Denies fatigue, Reports fever(s), Reports headache(s), Denies weakness and Denies weight loss Eyes Patient Reports system reviewed and no additional complaints, except as docu and Denies blurry vision ENT Denies vertigo, Denies dizziness, Denies otalgia, Reports headache(s), Denies nasal congestion, Denies sore throat and Denies throat swelling Cardiovascular Reports chest pain, Denies syncope, Denies rapid heart rate and Reports dyspnea Respiratory Reports dyspnea Gastrointestinal Denies abdominal pain, Denies diarrhea and Denies vomiting Genitourinary Denies hematuria, Denies dysuria and Denies flank pain Musculoskeletal Denies back pain and Denies joint swelling Integumentary/Breasts Denies lesions and Denies rash Neurologic Denies behavioral changes, Denies confusion, Denies vertigo, Denies dizziness, Denies syncope, Reports headache(s) and Denies weakness Psychiatric Denies behavioral changes, Denies confusion and Denies depression Endocrine Denies excessive sweating and Denies fatigue Hematologic/Lymphatic Denies easy bruising and Denies lymphadenopathy Allergic/Immunologic Denies throat swelling [facility] Social History Smoking/Tobacco Use Status: Current every day Exam Const General: cooperative, no acute distress and frail appearing Nutritional Appearance: thin and underweight Orientation: alert, awake and oriented x3 HENMT Head: normal to inspection Ears: hearing grossly normal bilaterally, external ears normal and TM's normal bilaterally General nose exam: external nose normal Face and sinus: normal facial exam Mouth: oral mucosae normal Teeth and gingiva: dentition normal Throat: posterior oropharynx normal Eyes General: appearance normal, both eyes and all related structures Eyelids: eyelids normal Pupils: PERRL EOM: EOM intact bilaterally Neck Neck: normal visual inspection Lymphatic: no lymphadenopathy noted Chest Chest: normal inspection of the chest Resp Effort & Inspection: normal respiratory effort and able to speak in complete sentences Auscultation: clear to auscultation bilaterally Cardio Rate: regular rate Rhythm: regular rhythm Heart Sounds: murmur (Grade 2 systolic murmur noted at right sternal border) GI Inspection: normal to inspection Palpation: soft, not firm, no guarding, no hepatosplenomegaly, no masses and nontender Auscultation: normal bowel sounds Back/Spine/Pelvis Back: CVA tenderness (Left side) Skin General skin exam: no rashes or lesions noted Neuro General: alert and awake Cognition: normal cognition Speech: speech normal Gait: normal gait Motor: muscle tone normal throughout Sensory Exam: no sensory deficits noted Extrem General: normal to inspection, full ROM, normal capillary refill and no edema Psych Appearance: grossly normal Mental Status: mental status grossly normal Speech and Movement: speech and movement normal Affect: normal affect Thought Process: normal Course This is a 43-year-old male that presented initially to [facility] on 07/13/2018 because of roughly 1 month of fever chills and malaise. Because of his history of IV drug abuse blood cultures were obtained, with his history it was recommended he be admitted to the hospital. He declined admission and therefore was placed on Levaquin and clindamycin as empiric therapy for possible bacterial endocarditis. Within the next 24 hours his blood cultures turned positive for anaerobic gram-positive rods later identified as microbacteria (corynebacteria). He was called at home and again recommended admission to the hospital. He opted to wait and go to his primary care physician on 07/18/2018. PCP referred him to the emergency room. He was admitted for IV antibiotics. The emergency room physician spoke with infectious disease at [facility] who recommended vancomycin as empiric therapy. Patient received IV vancomycin initially twice daily then every 8 hours then every 6 hours based on trough levels. He had an echocardiogram on 07/19/2018 that showed no evidence of vegetation, no valvular dysfunction, no LV dysfunction. It was recommended he have a trans esophageal echocardiogram but this could not be facilitated during this admission. I spoke with Dr. Ulloa, infectious disease at [facility]. She recommended daptomycin 8 mg/kg daily ?2 weeks. Outpatient transesophageal echocardiogram which if positive would prolong antibiotic therapy to 6 weeks. Vital Signs Temperature 98.1 F 07/18/18 16:53 Pulse 74 07/18/18 16:53 Respiratory Rate 16 07/18/18 16:53 Blood Pressure 119/80 07/18/18 16:53 Temperature 98.1 F 07/18/18 16:53 Pulse 74 07/18/18 16:53 Respiratory Rate 18 07/18/18 17:15 Blood Pressure 119/80 07/18/18 16:53 Lab/Test Results Lab/Test Results: Laboratory Tests 07/18/18 07/18/18 17:15 17:15 WBC 6.27 RBC 5.00 Hgb 15.0 Hct 44.1 MCV 88.2 MCH 30.0 MCHC 34.0 RDW 13.7 Plt Count 293 MPV 9.6 Immature Gran % 0.3 Neutrophils % 55.6 Lymphocytes % 32.5 Monocytes % 6.9 Eosinophils % 4.1 Basophils % 0.6 Absolute Neutrophils 3.48 Absolute Lymphocytes 2.04 Absolute Monocytes 0.43 Absolute Eosinophils 0.26 Absolute Basophils 0.04 Lactate 1.5 H
[2018-07-18 17:47] LABS: ALT 112 U/L (12-78); AST 70 U/L (15-37); Albumin 3.3 g/dL (3.4-5.0); Alkaline Phosphatase 110 U/L (46-116); Anion Gap 9.6 mmol/L (3-11); BUN 17 mg/dL (7-18); Bilirubin, Direct 0.11 mg/dL (0.00-0.20); Bilirubin, Total 0.4 mg/dL (0.2-1.0); CO2 26.4 mmol/L (21.0-32.0); CREATININE 0.98 mg/dL (0.70-1.30); Calcium 8.6 mg/dL (8.5-10.1); Chloride 104 mmol/L (98-107); Glucose 127 mg/dL (70-100); Magnesium 2.1 mg/dL (1.8-2.4); Potassium 3.6 mmol/L (3.5-5.1); Sodium 140 mmol/L (136-145); Total Protein 7.5 g/dL (6.4-8.2)
[2018-07-18 17:49] LABS: Prothrombin Time 9.9 sec (9.3-10.8)
[2018-07-18 17:51] LABS: Troponin I < 0.02 ng/mL (0.00-0.06)
--- NOTE | 2018-07-18 17:52 | ED.GENADUL_ITS ---
Discharge Plan Disposition Patient Disposition: [facility] INPATIENT Condition: Stable Discharge Details Chief Complaint: GenMedical Clinical Impression: Bacteremia, Endocarditis, Chronic fever, IV drug abuse Reason For Visit: BACTEREMIA Admit Date/Time: 07/18/18 20:35 Admit Provider: Manohar Bowman Attending Provider: Manohar Bowman Primary Care Provider: Aileen Macias ED Provider: Lety Russell Discharge Instructions Diet:: as tolerated Discharge Data Discharge Date/Time-TO BE ENTERED AT DEPARTURE: 07/18/18 21:09 Medical Decision Making MDM Narrative Medical decision making narrative: Patient is a 43-year-old male with a history of IV drug use including cocaine and heroin who presents for fever, headache, chest pain and chills for the past month. Patient was seen here on 07/13/18 for similar symptoms and was recommended for admission as he was noted to have a possible new cardiac murmur with concern for endocarditis considering his history of IVDA but he had refused admission and left AMA at that time. He was sent home with clindamycin and Levaquin and states he has been taking them. Patient was noted to have positive blood cultures of gram-positive rods on . He was called by and recommended to come to the ED at that time but he refused. Patient had a follow-up with his PCP today regarding his recent ED visit and was advised to come to the ED due to his recent positive blood cultures. Blood culture results today noted microbacterium which is usually nonpathogenic and related to a Corynebacterium species. His anaerobic tube noted no growth. Patient states he has not had a fever since last Tuesday. He does still admit to headache, chills and chest pain. He states the chest pain is substernal, aching and constant and admits to occasional shortness of breath. He states his headache is bitemporal and 8/10 at its worse and currently 1/10. He states he has been eating and drinking well and denies abdominal pain, sore throat, ear pain, neck pain or urinary symptoms. Per Dr. Faria's exam on 07/13/18, he had noted a new grade 2 systolic murmur left and right parasternal and pt has no known h/o murmur. It is very faint and I can hear a possible grade 2 right sided systolic murmur. Patient appears nontoxic. He has normal vital signs including no fever. Lungs are clear to auscultation, abdomen soft and nontender, normal ENT exam. No meningeal signs. He has no other obvious foci of infection other than the c/o chest pain and cough and headache and possible new murmur raising concern for endocarditis vs. pneumonia. Denies symptoms signs of ENT infection, pharyngitis, gastroenteritis , meningitis, osteomyelitis. He has no other signs of endocarditis such as Osler nodes, splinter hemorrhages, janeway lesions. As patient is still with symptoms, will place an IV, repeat labs, blood cultures , lactate and obtain a chest x-ray. Will give bolus IV fluids. As patient is noted to have a murmur with his history of IV drug use, he will likely need an echocardiogram and IV antibiotics. 170 --EKG notes a rate of 66, sinus, right bundle branch block, left anterior fascicular block. No acute ST elevation or depression. No acute change from previous. QTc 4 4. QRS 130. 1820 --labs reviewed and essentially unremarkable. White blood cell count 6.27. Lactate 1.5. Urinalysis negative. Chest x-ray negative. Will call [facility] infectious disease for recommendations. 1844 --discussed with [facility] infectious disease - states that if one set of blood cultures is positive, there is a 30% chance of endocarditis, but if 2 sets positive, 70-80% chance of endocarditis. States Corynebacterium is a possible cause of endocarditis. If 2 sets of positive blood cultures, recommends IV antibiotics with vancomycin, echo, TTE or SUMMER and then possible skeletal imaging. Recommend Vanco trough between 15-20. He had stated if patient had one set of positive blood cultures, would likely be contaminant and would recommend stopping antibiotics, with continued daily blood cultures. Recommends calling lab to set up sensitivity testing which will be sent to [facility]. We also discussed the need to search for other sources of infection as indicated. 1899 --I discussed with lab and confirmed that patient has 2 sets of positive blood culture showing Corynebacterium. Will call hospitalist for admission. Patient is agreeable to admission. 1914 --discussed with Dr. Bowman -accepts patient for admission. Lab Data Lab Results 07/18/18 07/18/18 Range/Units 17:15 17:15 WBC 6.27 (4.4-10.8) k/cumm RBC 5.00 (4.50-6.00) m/cumm Hgb 15.0 (13.5-17.5) g/dL Hct 44.1 (40.0-50.0) % MCV 88.2 (80-95) fL MCH 30.0 (27.0-33.0) pg MCHC 34.0 (32.0-36.0) g/dL RDW 13.7 (11.8-14.1) % Plt Count 293 (130-400) x1000/uL MPV 9.6 (8.0-11.0) fL Immature Gran % 0.3 Neutrophils % 55.6 Lymphocytes % 32.5 Monocytes % 6.9 Eosinophils % 4.1 Basophils % 0.6 Absolute Neutrophils 3.48 (1.2-6.7) k/cumm Absolute Lymphocytes 2.04 (1.2-3.4) k/cumm Absolute Monocytes 0.43 (0.11-0.7) k/cumm Absolute Eosinophils 0.26 (0.0-0.7) k/cumm Absolute Basophils 0.04 (0.0-0.2) k/cumm Lactate 1.5 H (0.6-1.4) mmol/L HPI - General Adult General Mode of arrival: ambulatory . Date/Time Provider Initiated Documentation: 07/18/18 17:00 . Limitations to Documentation: no limitations . Information obtained by: patient . HPI Narrative: Patient is a 43-year-old male with history of IV drug use including cocaine and heroin who presents for 1 month of fevers, headache, chills and chest pain. Patient was seen here on 07/13/18 for the same symptoms and was found to have a possible new cardiac murmur and recommended for admission for IV antibiotics but he refused and left AMA. He was sent home with clindamycin and Levaquin which he has been taking. Patient had a follow- up appointment with his primary care doctor today for his ED visit and was referred back to the emergency department. Patient states overall his fever has been improving, and has not had a fever that he knows of since last Tuesday. He still admits to occasional headaches, a few times a day 8/10 at its worst and occurring bitemporal. Headache is currently 1/10. He does still admit to occasional chest pain which is substernal, aching and constant and associated with occasional shortness of breath. He admits to occasional her doctor versus dry cough. He denies rash, neck pain, vomiting, diarrhea, abdominal pain, urinary symptoms, sore throat, ear pain, blurry vision, recent travel, sick contacts or recent surgeries. 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 Last IV cocaine use a few days ago, last heroin use unknown. Medications: Levaquin, clindamycin, Motrin Allergies: Gabapentin (restless) PCP: [facility] Related Data Allergies Allergy/AdvReac Type Severity Reaction Status Date / Time gabapentin Allergy Intermediate Itching, Unverified 07/18/18 17:32 jumpy General Stated Complaint: GenMedical CY: 2 Review of Systems Review of Systems All systems reviewed & are unremarkable except as noted in HPI and below Constitutional Reports chills, Denies excessive sweating, Denies fatigue, Reports fever(s), Reports headache(s), Denies weakness and Denies weight loss Eyes Patient Reports system reviewed and no additional complaints, except as docu and Denies blurry vision ENT Denies vertigo, Denies dizziness, Denies otalgia, Reports headache(s), Denies nasal congestion, Denies sore throat and Denies throat swelling Cardiovascular Reports chest pain, Denies syncope, Denies rapid heart rate and Reports dyspnea Respiratory Reports dyspnea Gastrointestinal Denies abdominal pain, Denies diarrhea and Denies vomiting Genitourinary Denies hematuria, Denies dysuria and Denies flank pain Musculoskeletal Denies back pain and Denies joint swelling Integumentary/Breasts Denies lesions and Denies rash Neurologic Denies behavioral changes, Denies confusion, Denies vertigo, Denies dizziness, Denies syncope, Reports headache(s) and Denies weakness Psychiatric Denies behavioral changes, Denies confusion and Denies depression Endocrine Denies excessive sweating and Denies fatigue Hematologic/Lymphatic Denies easy bruising and Denies lymphadenopathy Allergic/Immunologic Denies throat swelling [facility] Social History Smoking/Tobacco Use Status: Current every day Exam Const General: cooperative, no acute distress and frail appearing Nutritional Appearance: thin and underweight Orientation: alert, awake and oriented x3 HENMT Head: normal to inspection Ears: hearing grossly normal bilaterally, external ears normal and TM's normal bilaterally General nose exam: external nose normal Face and sinus: normal facial exam Mouth: oral mucosae normal Teeth and gingiva: dentition normal Throat: posterior oropharynx normal Eyes General: appearance normal, both eyes and all related structures Eyelids: eyelids normal Pupils: PERRL EOM: EOM intact bilaterally Neck Neck: normal visual inspection Lymphatic: no lymphadenopathy noted Chest Chest: normal inspection of the chest Resp Effort & Inspection: normal respiratory effort and able to speak in complete sentences Auscultation: clear to auscultation bilaterally Cardio Rate: regular rate Rhythm: regular rhythm Heart Sounds: murmur (Grade 2 systolic murmur noted at right sternal border) GI Inspection: normal to inspection Palpation: soft, not firm, no guarding, no hepatosplenomegaly, no masses and nontender Auscultation: normal bowel sounds Back/Spine/Pelvis Back: CVA tenderness (Left side) Skin General skin exam: no rashes or lesions noted Neuro General: alert and awake Cognition: normal cognition Speech: speech normal Gait: normal gait Motor: muscle tone normal throughout Sensory Exam: no sensory deficits noted Extrem General: normal to inspection, full ROM, normal capillary refill and no edema Psych Appearance: grossly normal Mental Status: mental status grossly normal Speech and Movement: speech and movement normal Affect: normal affect Thought Process: normal Course This is a 43-year-old male that presented initially to [facility] on 07/13/2018 because of roughly 1 month of fever chills and malaise. Because of his history of IV drug abuse blood cultures were obtained, with his history it was recommended he be admitted to the hospital. He declined admission and therefore was placed on Levaquin and clindamycin as empiric therapy for possible bacterial endocarditis. Within the next 24 hours his blood cultures turned positive for anaerobic gram-positive rods later identified as microbacteria (corynebacteria). He was called at home and again recommended admission to the hospital. He opted to wait and go to his primary care physician on 07/18/2018. PCP referred him to the emergency room. He was admitted for IV antibiotics. The emergency room physician spoke with infectious disease at [facility] who recommended vancomycin as empiric therapy. Patient received IV vancomycin initially twice daily then every 8 hours then every 6 hours based on trough levels. He had an echocardiogram on 07/19/2018 that showed no evidence of vegetation, no valvular dysfunction, no LV dysfunction. It was recommended he have a trans esophageal echocardiogram but this could not be facilitated during this admission. I spoke with Dr. Ulloa , infectious disease at [facility]. She recommended daptomycin 8 mg/kg daily ?2 weeks. Outpatient transesophageal echocardiogram which if positive would prolong antibiotic therapy to 6 weeks. Vital Signs Temperature 98.1 F 07/18/18 16:53 Pulse 74 07/18/18 16:53 Respiratory Rate 16 07/18/18 16:53 Blood Pressure 119/80 07/18/18 16:53 Temperature 98.1 F 07/18/18 16:53 Pulse 74 07/18/18 16:53 Respiratory Rate 18 07/18/18 17:15 Blood Pressure 119/80 07/18/18 16:53 Lab/Test Results Lab/Test Results: Laboratory Tests 07/18/18 07/18/18 17:15 17:15 WBC 6.27 RBC 5.00 Hgb 15.0 Hct 44.1 MCV 88.2 MCH 30.0 MCHC 34.0 RDW 13.7 Plt Count 293 MPV 9.6 Immature Gran % 0.3 Neutrophils % 55.6 Lymphocytes % 32.5 Monocytes % 6.9 Eosinophils % 4.1 Basophils % 0.6 Absolute Neutrophils 3.48 Absolute Lymphocytes 2.04 Absolute Monocytes 0.43 Absolute Eosinophils 0.26 Absolute Basophils 0.04 Lactate 1.5 H
[2018-07-18 18:01] LABS: PTT Activated 27.3 sec (21.0-31.4)
[2018-07-18 18:15] LABS: Bilirubin Negative (Negative); Blood Negative (Negative); Clarity Clear; Glucose Negative (Negative); Ketones Negative (Negative); Leukocyte Esterase Negative (Negative); Nitrite Negative (Negative); Urobilinogen 0.2 EU/dL (Up TO 0.2); pH 5.5 (5-8)
--- NOTE | 2018-07-18 18:23 | DI.VRAD_ITS ---
EXAM: XR Chest, 2 Views EXAM DATE/TIME: 07/18/2018 5:35 PM CLINICAL HISTORY: 43 years old, male; Signs and symptoms; Other: Chest pain, fever, positive bl TECHNIQUE: XR of the chest, 2 views. COMPARISON: CR - XR CHEST 2V PA LATERAL 07/12/2018 11:54 PM FINDINGS: Lungs: Unremarkable. No consolidation. Pleural space: Unremarkable. No pleural effusion. No pneumothorax. Heart/Mediastinum: Unremarkable. No cardiomegaly. Bones/joints: There is very mild old anterior wedge compression deformity of T7 demonstrated. There is mildly accentuated kyphotic curvature of the thoracic spine again demonstrated. Minimal anterior marginal osteophytic spurring is present throughout the thoracic vertebrae. IMPRESSION: 1. No acute pulmonary disease or acute thoracic findings are detected. 2. No significant interval change. Dictated and Authenticated by: Jules Baires MD. Ordering:MARLENE NARANJO MD
--- NOTE | 2018-07-18 20:08 | W.PM.HP.N ---
Date of service: 07/18/18 Time of Service: 20:09 History of Present Illness Chief Complaint: positive blood culture Assessment/Plan: The totality of evidence suggests a fair possibility of SBE. Will begin empiric Vanco and obtain cardiac ECHO. Will also request lab tto run sensittivities on organism. Narrative: 48 male h/o IVDA. Seen last week with one month fever, chills and constitutional sxx. Blood cxx drawn, d/korey on clinda and levaquin. Cxx turned positive microbacterium, patient advised return to ER but declined. Saw PCP today and agreed to return. ER reviewed with ID at [facility], advised that two + bottles makes true infection more likely than contaminant, and possible SBE. Advised pawel for IV Vanco and further work up. Patient agrees. Review of Systems Review of Systems All systems reviewed & are unremarkable except as noted in HPI and below PFSH Social History Smoking/Tobacco Use Status: Current every day Meds Allergies Allergy/AdvReac Type Severity Reaction Status Date / Time gabapentin Allergy Intermediate Itching, Unverified 07/18/18 17:32 jumpy Exam Narrative Exam Narrative: HEENT of note for absence Burger spots; neck supple; lungs clear; heart r/r/r w/o murmur; abdomen soft, NT w/o HSM; and rectal deferred; extremities w/o edema, pulses 2+/=, no splinter hemorrhages Results Labs : 07/20/18 06:50 07/20/18 06:50 Laboratory Results - last 24 hr 07/18/18 07/18/18 07/18/18 17:15 17:15 17:15 WBC 6.27 RBC 5.00 Hgb 15.0 Hct 44.1 MCV 88.2 MCH 30.0 MCHC 34.0 RDW 13.7 Plt Count 293 MPV 9.6 Immature Gran % 0.3 Neutrophils % 55.6 Lymphocytes % 32.5 Monocytes % 6.9 Eosinophils % 4.1 Basophils % 0.6 Absolute Neutrophils 3.48 Absolute Lymphocytes 2.04 Absolute Monocytes 0.43 Absolute Eosinophils 0.26 Absolute Basophils 0.04 PT INR APTT Sodium 140 Potassium 3.6 Chloride 104 Carbon Dioxide 26.4 Anion Gap 9.6 BUN 17 Creatinine 0.98 Estimated GFR/1.73 m2 >= 60.00 Glucose 127 H Lactate 1.5 H Calcium 8.6 Magnesium 2.1 Total Bilirubin 0.4 Conjugated Bilirubin 0.11 AST 70 H ALT 112 H Alkaline Phosphatase 110 Troponin I < 0.02 Total Protein 7.5 Albumin 3.3 L Urine Color Urine Clarity Urine pH Ur Specific Forgan Urine Protein Urine Ketones Urine Blood Urine Nitrite Urine Bilirubin Urine Urobilinogen Ur Leukocyte Esterase Urine Glucose 07/18/18 07/18/18 17:15 18:05 WBC RBC Hgb Hct MCV MCH MCHC RDW Plt Count MPV Immature Gran % Neutrophils % Lymphocytes % Monocytes % Eosinophils % Basophils % Absolute Neutrophils Absolute Lymphocytes Absolute Monocytes Absolute Eosinophils Absolute Basophils PT 9.9 INR 1.0 APTT 27.3 Sodium Potassium Chloride Carbon Dioxide Anion Gap BUN Creatinine Estimated GFR/1.73 m2 Glucose Lactate Calcium Magnesium Total Bilirubin Conjugated Bilirubin AST ALT Alkaline Phosphatase Troponin I Total Protein Albumin Urine Color Yellow Urine Clarity Clear Urine pH 5.5 Ur Specific Forgan 1.020 Urine Protein Negative Urine Ketones Negative Urine Blood Negative Urine Nitrite Negative Urine Bilirubin Negative Urine Urobilinogen 0.2 Ur Leukocyte Esterase Negative Urine Glucose Negative
[2018-07-18 20:18] VITALS: TEMP 37.2
[2018-07-18] MEDS: Nicotine 21 MG/24 HR PATCH TD (20:55)
[2018-07-18] MEDS: VANCOMYCIN 1,000 MG in Normal Saline 250 ML 166.6666 MG IVPB (20:56)
[2018-07-18 21:18] VITALS: BP 129/79; PULSE 73; RESP 16; TEMP 36.7; O2SAT 99
[2018-07-18] MEDS: Normal Saline Flush 10 ML SYR IVP (22:35)
[2018-07-18 22:55] VITALS: BP 129/79; PULSE 73; RESP 16; TEMP 36.7; O2SAT 99
[2018-07-18 23:37] VITALS: BP 111/73; PULSE 78; RESP 18; TEMP 36.6; O2SAT 99
[2018-07-19 07:33] VITALS: BP 122/82; PULSE 72; RESP 20; TEMP 36.7; O2SAT 100
[2018-07-19] MEDS: VANCOMYCIN 1,000 MG in Normal Saline 250 ML 166.6666 MG IVPB ×2 (08:13→16:57)
[2018-07-19] MEDS: Normal Saline Flush 10 ML SYR IVP ×2 (08:14→18:30)
[2018-07-19] MEDS: Nicotine 21 MG/24 HR PATCH TD (08:24)
--- NOTE | 2018-07-19 08:39 | PDOC.CMIN ---
- If Service Date Differs Date of service: 07/19/18 Time of Service: 08:39 Care Management Initial Assess REASON FOR HOSPITALIZATION:: Positive blood culture PAST MEDICAL HISTORY/PAST SURGICAL HISTORY:: Per ER Note: Hepatitic C, Shoulder surgery, IV drug use PREVIOUS FUNCTIONAL STATUS/SOCIAL/FAMILY SUPPORTS:: Kevin resides in [place], he states that he is currently residing in a friends trailer. Kevin states that his mom and grandparents reside locally and is mom is supportive. Kevin works at [employer] and states that he has worked for [employer] on and off for 17 years. 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 He states that he is bored this morning and wishes he had a playstation to play. ADVANCE DIRECTIVES:: None on file Has patient been provided with information about the portal?: Yes Did the patient sign up for the portal?: No CODE STATUS:: Full Code INSURANCE COVERAGE / FINANCIAL ISSUES:: Medicaid CURRENT HOME/COMMUNITY SERVICES/EQUIPMENT:: Currently Kevin has no services or medical equipment in the community. PRIMARY CARE PHYSICIAN:: Aileen Macias POTENTIAL DISCHARGE NEEDS:: F/U appointment with PCP PATIENT/FAMILY EDUCATION NEEDS:: Review DC instructions, any limitations, and ongoing DC planning discussion. ANTICIPATED BARRIERS TO DISCHARGE:: None identified at this time. TRANSPORTATION:: Via private vehicle. PLAN:: Kevin states that he wants to get back to work soon. Kevin has an Echo scheduled for today and is on IV Vanco at this time. Plan for discharge is for Kevin to return home with no services. He will F/U with PCP and plan of care as prescribed.
[2018-07-19 08:45] VITALS: O2SAT 98
--- NOTE | 2018-07-19 08:55 | PHARADMIT ---
Admission Pharmacy Clinical Review BACTREMIA Code Status Full Code Current Weight Wgt- 60.9 kg Renally Cleared and Narrow Therapeutic Index Meds CrCl~ 85 mL/min Meds-OK QTc Value / Action Taken na BP Control, Fever BP- 122/82 Tmax- 36.7C Electrolytes reviewed Na- 140 K+3.6 Mag-2.1 DVT Prophylaxis none Opiate Usage / Scheduled Bowel Regimen Ordered No No Plt/SCr for Heparin / Enoxaparin Plts-293 SCr-0.98 INR for Warfarin inr-1.0 H/H stable, WBC/Bands H&H- 15.0/44.1 WBC- 6.27 Antibiotic appropriateness Vancomycin Cultures and Sensitivities Blood-pending Surgical ABX d/c within 24 hr na DM control / Insulin Dosing BG- 127 Heart Failure (Check EF%) (NEIL's, B-Block, Diuretics) none IV to PO Switch No Home Meds Reviewed Yes Home Meds Not Ordered Levaquin, Clindamycin Comments
--- NOTE | 2018-07-19 08:57 | MERGE_ITS ---
*[facility]* *[facility]* [address] [place] [address] Date of study: 07/19/2018 Transthoracic Echocardiography M-mode, complete 2D, complete spectral Doppler, and color Doppler *STUDY CONCLUSIONS* Impressions: No significant valve disease. Summary: 1. Left ventricle: The cavity size was normal. Wall thickness was normal. Systolic function was normal. The estimated ejection fraction was 55-60%. Wall motion was normal; there were no regional wall motion abnormalities. 2. Aortic valve: There was trivial regurgitation. 3. Mitral valve: There was mild regurgitation. 4. Right ventricle: The cavity size was normal. Wall thickness was normal. Systolic function was normal. *PATIENT PRESENTATION* Height: 165.1cm ((65in) ) S/D Pressure: 122 / 82 Weight: 60.8kg ((133.7lb) ) BSA: 1.67m^2 Test start time: 09:00 AM. Test stop time: 09:50 AM. ORDERING Manohar Bowman REFERRING Manohar Bowman PERFORMING Unknown PERFORMING [facility] ARTIST RT Gardenia Sumner)(JAMIE), MANOHAR *PROCEDURE DATA* Procedure information: The patient was identified by two identifiers. This study was interpreted by [facility]. Pertinent images and digital data are archived for permanent storage and are available for subsequent review. No prior study was available for comparison. Study status: Routine. Transthoracic echocardiography. M-mode, complete 2D, complete spectral Doppler, and color Doppler. A Transthoracic Echocardiogram was performed. Scanning was performed from the parasternal, apical, subcostal, and suprasternal notch acoustic windows. Images were obtained using an [id number] cardiac ultrasound machine. Image quality was good. Study completion: The patient tolerated the procedure well. There were no complications. History: PMH: Bacteremia. *CARDIAC ANATOMY* Left ventricle: The cavity size was normal. Wall thickness was normal. Systolic function was normal. The estimated ejection fraction was 55-60%. Wall motion was normal; there were no regional wall motion abnormalities. Diastolic parameters were normal. Aortic valve: Trileaflet; normal thickness leaflets. Mobility was not restricted. Doppler: Transvalvular velocity was within the normal range. There was no stenosis. There was trivial regurgitation. VTI ratio of LVOT to aortic valve: 0.71. Valve area (VTI): 2.4cm^2. Indexed valve area (VTI): 1.5cm^2/m^2. Peak velocity ratio of LVOT to aortic valve: 0.72. Valve area (Vmax): 2.5cm^2. Indexed valve area (Vmax): 1.5cm^2/m^2. Mean velocity ratio of LVOT to aortic valve: 0.63. Valve area (Vmean): 2.1cm^2. Indexed valve area (Vmean): 1.3cm^2/m^2. Mean gradient (S): 6.6mm Hg. Peak gradient (S): 11.2mm Hg. Aorta: Aortic root: The aortic root was normal in size. Ascending aorta: The ascending aorta was normal in size. Mitral valve: Mildly thickened leaflets. Mobility was not restricted. Doppler: Transvalvular velocity was within the normal range. There was no evidence for stenosis. There was mild regurgitation. Valve area by pressure half-time: 2.4cm^2. Indexed valve area by pressure half-time: 1.4cm^2/m^2. Left atrium: The atrium was normal in size. Right ventricle: The cavity size was normal. Wall thickness was normal. Systolic function was normal. Pulmonic valve: Structurally normal valve. Doppler: Transvalvular velocity was within the normal range. There was no evidence for stenosis. There was no significant regurgitation. Peak gradient (S): 4.4mm Hg. Tricuspid valve: Structurally normal valve. Doppler: Transvalvular velocity was within the normal range. There was no evidence for stenosis. There was no significant regurgitation. Pulmonary artery: Pulmonary systolic pressure was within the normal range, in the range of 25mm Hg to 30mm Hg. Right atrium: The atrium was normal in size. Pericardium: There was no pericardial effusion. Systemic veins: Inferior vena cava: Well visualized. The vessel was patent and normal in size. The respirophasic diameter changes were in the normal range (greater than or equal to 50%). Measurements Left ventricle Value Reference LV ID, ED, PLAX 4.9 cm 3.5 - 6.0 LV ID, ES, PLAX 3.6 cm 2.1 - 4.0 LV PW thickness, ED, PLAX 1.0 cm LV end-diastolic volume, 1-p A2C 95 ml LV ejection fraction, 1-p A2C 48 % LV end-diastolic volume, 1-p A4C 106 ml LV ejection fraction, 1-p A4C 59 % LV e', lateral 0.145 m/sec LV E/e', lateral 4 LV e', medial 0.093 m/sec LV E/e', medial 6 LV e', average 0.119 m/sec LV E/e', average 5 Ventricular septum Value Reference IVS thickness, ED, PLAX 0.9 cm LVOT Value Reference LVOT ID, A-P 2.1 cm LVOT area 3.4 cm^2 LVOT peak velocity, S 1.2 m/sec LVOT mean velocity, S 0.77 m/sec LVOT VTI, S 22.8 cm LVOT peak gradient, S 5.8 mm Hg LVOT mean gradient, S 2.8 mm Hg Stroke volume (SV), LVOT DP 78 ml Stroke index (SV/bsa), LVOT DP 47 ml/m^2 Aortic valve Value Reference Aortic valve peak velocity, S 1.7 m/sec Aortic valve mean velocity, S 1.23 m/sec Aortic valve VTI, S 32.1 cm Aortic mean gradient, S 6.6 mm Hg Aortic peak gradient, S 11.2 mm Hg VTI ratio, LVOT/AV 0.71 Aortic valve area, VTI 2.4 cm^2 Velocity ratio, peak, LVOT/AV 0.72 Aortic valve area, peak velocity 2.5 cm^2 Velocity ratio, mean, LVOT/AV 0.63 Aortic valve area, mean velocity 2.1 cm^2 Aortic valve area/bsa, mean velocity 1.3 cm^2/m^2 Aorta Value Reference Aortic root ID, ED 2.8 cm Ascending aorta ID, A-P, S 3.4 cm RVOT Value Reference RVOT VTI, S 19.7 cm Left atrium Value Reference LA ID, A-P, ES 3.9 cm LA ID/bsa, A-P (H) 2.3 cm/m^2 <=2.2 LA area, ES, A4C 17 cm^2 8.8 - 23.4 LA area, ES, A2C 13 cm^2 LA volume/bsa, ES, 1-p A4C 32 ml/m^2 LA volume, ES, 2-p 39 ml LA volume/bsa, ES, 2-p 24 ml/m^2 LA/aortic root ratio 1.37 Mitral valve Value Reference Mitral E-wave peak velocity 0.59 m/sec Mitral A-wave peak velocity 0.51 m/sec Mitral deceleration time (H) 317 ms 150 - 230 Mitral pressure half-time 92 ms Mitral E/A ratio, peak 1.16 Mitral valve area, PHT, DP 2.4 cm^2 Pulmonary veins Value Reference Pulmonary vein peak velocity, S 0.4 m/sec Pulmonary vein peak velocity, D 0.58 m/sec Pulmonary vein velocity ratio, peak, 0.68 S/D Pulmonary vein A-wave reversal peak 0.32 m/sec velocity Pulmonary vein A-wave reversal 128 ms duration Tricuspid valve Value Reference Tricuspid regurg peak velocity 2.6 m/sec Tricuspid peak RV-RA gradient 26.4 mm Hg Right atrium Value Reference RA area, ES, A4C 12.7 cm^2 8.3 - 19.5 Pulmonic valve Value Reference Pulmonic peak gradient, S 4.4 mm Hg Legend: (L) and (H) ilan values outside specified reference range. I have personally reviewed the images and have reviewed and edited the reported findings. Electronically signed by Raad Damon 07/19/2018 11:40
--- NOTE | 2018-07-19 09:19 | INITIAL_ITS ---
- If Service Date Differs Date of service: 07/19/18 Time of Service: 08:39 Care Management Initial Assess REASON FOR HOSPITALIZATION:: Positive blood culture PAST MEDICAL HISTORY/PAST SURGICAL HISTORY:: Per ER Note: Hepatitic C, Shoulder surgery, IV drug use PREVIOUS FUNCTIONAL STATUS/SOCIAL/FAMILY SUPPORTS:: Kevin resides in [facility], he states that he is currently residing in a friends trailer. Kevin states that his mom and grandparents reside locally and is mom is supportive. Kevin works at [employer] and states that he has worked for [employer] on and off for 17 years. 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 He states that he is bored this morning and wishes he had a playstation to play. ADVANCE DIRECTIVES:: None on file Has patient been provided with information about the portal?: Yes Did the patient sign up for the portal?: No CODE STATUS:: Full Code INSURANCE COVERAGE / FINANCIAL ISSUES:: Medicaid CURRENT HOME/COMMUNITY SERVICES/EQUIPMENT:: Currently Kevin has no services or medical equipment in the community. PRIMARY CARE PHYSICIAN:: Aileen Macias POTENTIAL DISCHARGE NEEDS:: F/U appointment with PCP PATIENT/FAMILY EDUCATION NEEDS:: Review DC instructions, any limitations, and ongoing DC planning discussion. ANTICIPATED BARRIERS TO DISCHARGE:: None identified at this time. TRANSPORTATION:: Via private vehicle. PLAN:: Kevin states that he wants to get back to work soon. Kevin has an Echo scheduled for today and is on IV Vanco at this time. Plan for discharge is for Kevin to return home with no services. He will F/U with PCP and plan of care as prescribed.
[2018-07-19 15:54] VITALS: BP 120/88; PULSE 71; RESP 18; TEMP 37.1; O2SAT 97
[2018-07-19] MEDS: Ibuprofen 600 MG TAB PO (17:04)
--- NOTE | 2018-07-19 18:14 | W.PM.PROGNOT ---
Date of service: 07/19/18 Time of Service: 18:15 Assessment and Plan (1) Bacteremia: Current visit: Yes Status: Acute 2 of 2 blood cultures positive for what appears to be corynebacterium. He is on IV vancomycin as empiric therapy. He is subjectively better on IV antibiotics. We can assume it is related to his IV drug use. He states he does not use clean technique. He reuses needles. Plan is to await further identification of the organism with sensitivities. Rule out endocarditis, transthoracic echo negative, will likely need transesophageal echo. Will discuss with cardiology. Repeat blood cultures pending. Will confer with infectious disease once further results available. (2) IV drug abuse: Current visit: Yes Status: Acute He states he has an occasional IV drug user. He does have high risk behaviors with reusing needles. He is hepatitis C positive. He is cooperative and willing to take treatments to prevent endocarditis if needed. (3) Hepatitis C antibody test positive: Current visit: Yes Status: Acute No previous Rx. Overall liver function appears to be normal. No stigmata of acute hepatitis. (4) Tobacco abuse: Current visit: Yes Status: Acute He is having cravings for tobacco. Will try Nicotrol inhaler. (5) Discharge planning issues: Current visit: Yes Status: Acute He is a full code in acute care status. Continue IV vancomycin and continue workup for endocarditis. He may be a candidate for outpatient antibiotic therapy once we establish the diagnosis and length of treatment. Subjective Patient reports: feels better Interval history since last seen: He has had some headache today. No fevers, some body ache. Overall states he feels better. Late in the day he complained of some left-sided flank pain worse with inspiration. He is asking for some ibuprofen. We had a long discussion about IV drug use. He states he is only an occasional user and has good control of it. He prefers uppers over downers. Exam Narrative Exam Narrative: He looks well and in no apparent distress. He displays a full affect. He smiles readily and is fully cooperative. Const General: cooperative, comfortable and no acute distress Nutritional Appearance: thin Orientation: alert and awake Eyes General: appearance normal, both eyes and all related structures Pupils: PERRL Chest Chest: normal inspection of the chest Resp Effort & Inspection: normal respiratory effort Auscultation: clear to auscultation bilaterally Cardio Rate: regular rate Rhythm: regular rhythm Heart Sounds: no murmurs GI Palpation: soft and nontender Skin Lesions: lesion noted Neuro General: alert, awake, oriented x3, moves all extremities and no focal motor deficits Cognition: normal cognition Speech: speech normal Extrem General: no clubbing, no cyanosis and no edema Psych Appearance: grossly normal Objective Objective Clinical Data: Vital Signs Temp 37.1 C 07/19/18 15:54 Pulse 71 07/19/18 15:54 Resp 18 07/19/18 15:54 BP 120/88 07/19/18 15:54 Pulse Ox 97 07/19/18 15:54 Intake & Output 07/18/18 07/19/18 07/19/18 23:59 11:59 23:59 Intake Total 1000 / 1000 790 / 790 250 / 250 Balance 1000 / 1000 790 / 790 250 / 250 Weight 60.9 kg Intake: IV 1000 / 1000 Oral 790 / 790 250 / 250 Other: Urine Appearance Clear Comment pt voiding indpendently in toilet, urine not assessed at this time Laboratory Results WBC 6.27 k/cumm (4.4-10.8) 07/18/18 17:15 RBC 5.00 m/cumm (4.50-6.00) 07/18/18 17:15 Hgb 15.0 g/dL (13.5-17.5) 07/18/18 17:15 Hct 44.1 % (40.0-50.0) 07/18/18 17:15 MCV 88.2 fL (80-95) 07/18/18 17:15 MCH 30.0 pg (27.0-33.0) 07/18/18 17:15 MCHC 34.0 g/dL (32.0-36.0) 07/18/18 17:15 RDW 13.7 % (11.8-14.1) 07/18/18 17:15 Plt Count 293 x1000/uL (130-400) 07/18/18 17:15 MPV 9.6 fL (8.0-11.0) 07/18/18 17:15 Immature Gran % 0.3 07/18/18 17:15 Neutrophils % 55.6 07/18/18 17:15 Lymphocytes % 32.5 07/18/18 17:15 Monocytes % 6.9 07/18/18 17:15 Eosinophils % 4.1 07/18/18 17:15 Basophils % 0.6 07/18/18 17:15 Absolute Neutrophils 3.48 k/cumm (1.2-6.7) 07/18/18 17:15 Absolute Lymphocytes 2.04 k/cumm (1.2-3.4) 07/18/18 17:15 Absolute Monocytes 0.43 k/cumm (0.11-0.7) 07/18/18 17:15 Absolute Eosinophils 0.26 k/cumm (0.0-0.7) 07/18/18 17:15 Absolute Basophils 0.04 k/cumm (0.0-0.2) 07/18/18 17:15 PT 9.9 sec (9.3-10.8) 07/18/18 17:15 INR 1.0 (1.0-3.5) 07/18/18 17:15 APTT 27.3 sec (21.0-31.4) 07/18/18 17:15 Sodium 140 mmol/L (136-145) 07/18/18 17:15 Potassium 3.6 mmol/L (3.5-5.1) 07/18/18 17:15 Chloride 104 mmol/L (98-107) 07/18/18 17:15 Carbon Dioxide 26.4 mmol/L (21.0-32.0) 07/18/18 17:15 Anion Gap 9.6 mmol/L (3-11) 07/18/18 17:15 BUN 17 mg/dL (7-18) 07/18/18 17:15 Creatinine 0.98 mg/dL (0.70-1.30) 07/18/18 17:15 Estimated GFR/1.73 m2 >= 60.00 (mL/min/1.73m2) 07/18/18 17:15 Glucose 127 mg/dL (70-100) H 07/18/18 17:15 Lactate 1.5 mmol/L (0.6-1.4) H 07/18/18 17:15 Calcium 8.6 mg/dL (8.5-10.1) 07/18/18 17:15 Magnesium 2.1 mg/dL (1.8-2.4) 07/18/18 17:15 Total Bilirubin 0.4 mg/dL (0.2-1.0) 07/18/18 17:15 Conjugated Bilirubin 0.11 mg/dL (0.00-0.20) 07/18/18 17:15 AST 70 U/L (15-37) H 07/18/18 17:15 ALT 112 U/L (12-78) H 07/18/18 17:15 Alkaline Phosphatase 110 U/L (46-116) 07/18/18 17:15 Troponin I < 0.02 ng/mL (0.00-0.06) 07/18/18 17:15 Total Protein 7.5 g/dL (6.4-8.2) 07/18/18 17:15 Albumin 3.3 g/dL (3.4-5.0) L 07/18/18 17:15 Urine Color Yellow (Yellow) 07/18/18 18:05 Urine Clarity Clear 07/18/18 18:05 Urine pH 5.5 (5-8) 07/18/18 18:05 Ur Specific [place] 1.020 (1.005-1.025) 07/18/18 18:05 Urine Protein Negative mg/dL (Negative) 07/18/18 18:05 Urine Ketones Negative mg/dL (Negative) 07/18/18 18:05 Urine Blood Negative (Negative) 07/18/18 18:05 Urine Nitrite Negative (Negative) 07/18/18 18:05 Urine Bilirubin Negative (Negative) 07/18/18 18:05 Urine Urobilinogen 0.2 EU/dL (Up TO 0.2) 07/18/18 18:05 Ur Leukocyte Esterase Negative (Negative) 07/18/18 18:05 Urine Glucose Negative mg/dL (Negative) 07/18/18 18:05 Echocardiogram today showed no evidence of vegetations, overall normal systolic function.
[2018-07-19 21:02] VITALS: BP 104/75; PULSE 88; RESP 16; TEMP 36.1; O2SAT 96
[2018-07-19 23:38] VITALS: BP 109/73; PULSE 60; RESP 17; TEMP 36.2; O2SAT 97
[2018-07-20] MEDS: Normal Saline Flush 10 ML SYR IVP ×4 (03:00→16:40)
[2018-07-20] MEDS: VANCOMYCIN 1,000 MG in Normal Saline 250 ML 166 MG IVPB (03:00)
[2018-07-20 04:20] VITALS: BP 96/68; PULSE 59; RESP 19; TEMP 36.4; O2SAT 97
[2018-07-20 07:07] LABS: Abs Immature Grans 0.04 k/cumm (0.0-0.09); Absolute Basophil Count 0.05 k/cumm (0.0-0.2); Absolute Eosinophil Count 0.45 k/cumm (0.0-0.7); Absolute Monocyte Count 0.52 k/cumm (0.11-0.7); Absolute Neutrophil Count 4.03 k/cumm (1.2-6.7); Basophils % 0.7; HCT 47.7 % (40.0-50.0); HGB 15.9 g/dL (13.5-17.5); Immature Grans % 0.5; Mean Corp. HGB Concentration 33.3 g/dL (32.0-36.0); Mean Corpuscular Hemoglobin 29.6 pg (27.0-33.0); Mean Corpuscular Volume 88.8 fL (80-95); Mean Platelet Volume 9.4 fL (8.0-11.0); Monocytes % 6.9; Neutrophils % 53.9; Platelet Count 335 x1000/uL (130-400); RBC 5.37 m/cumm (4.50-6.00); White Blood Cell Count 7.49 k/cumm (4.4-10.8)
[2018-07-20 07:09] LABS: Anion Gap 6.5 mmol/L (3-11); BUN 14 mg/dL (7-18); CO2 26.5 mmol/L (21.0-32.0); CREATININE 0.96 mg/dL (0.70-1.30); Calcium 8.9 mg/dL (8.5-10.1); Chloride 106 mmol/L (98-107); Glucose 100 mg/dL (70-100); Potassium 4.2 mmol/L (3.5-5.1); Sodium 139 mmol/L (136-145)
[2018-07-20 07:15] LABS: Vancomycin, Trough 18.7 ug/mL (10.0-20.0)
[2018-07-20] MEDS: VANCOMYCIN 1,000 MG in Normal Saline 250 ML 166.6666 MG IVPB (08:48)
--- NOTE | 2018-07-20 09:10 | CHAPLAIN ---
Kevin was resting in bed when I visited. He was pleasant and engaged in a conversation telling me his mom was an OB nurse here for many years. He was waiting to receive his nicotine replacement because he really wanted to smoke, he said. He thought he might have a friend coming to visit him, who would also shrimp picker his car.
[2018-07-20 10:02] VITALS: BP 109/73; PULSE 84; RESP 19; TEMP 36.9; O2SAT 99
--- NOTE | 2018-07-20 13:25 | PDOC.CMPRO ---
- If Service Date Differs Date of service: 07/20/18 Time of Service: 13:25 Care Management Progress Note S/O: Kevin is sitting up in bed today when this database report writer visits. He is pleasant and open to conversation. A SUMMER has been ordered at this time, currently awaiting length of time needed for Kevin' IV antibiotics. Kevin would like to come to the outpatient infusion room for IV antibiotics once length of need is determined. A: 43 y/o male admitted 07/18/18 for bacteremia. P: Kevin will return home with outpatient IV antibiotics through the infusion room. Kevin will F/U with PCP and plan of care as prescribed. Friend or mom to transport when ready.
[2018-07-20] MEDS: VANCOMYCIN 1,000 MG in Normal Saline 250 ML 166.66 MG IVPB (14:46)
[2018-07-20 16:02] VITALS: BP 120/86; PULSE 91; RESP 18; TEMP 36.6; O2SAT 99
--- NOTE | 2018-07-20 17:52 | W.PM.DS.N ---
Date of service: 07/20/18 Time of Service: 17:52 DS: Diagnosis Discharge Diagnosis (1) Bacteremia: Status: Acute Asessment and Plan: 2 of 2 bottles growing microbacteria, presumed to be a corynebacterium species. Sensitivities pending from [facility]. Empiric therapy with daptomycin 500 mg nightly ?13 more doses. (2) IV drug abuse: Status: Acute Asessment and Plan: Presumably the cause of the bacteremia. Counseling and education around clean technique, using clean needles, safe drug usage. (3) Hepatitis C antibody test positive: Status: Acute Asessment and Plan: HCV as of 07/04/2018. No treatment as yet. (4) Tobacco abuse: Status: Acute Asessment and Plan: Ongoing smoking cessation discussions. (5) Discharge planning issues: Status: Acute Asessment and Plan: Arranged for outpatient IV daptomycin infusions nightly ?2 more weeks. Follow-up with Aileen Macias NP. Discharge Plan Disposition Patient Disposition: HOME Condition: Stable Discharge Details Reason For Visit: BACTEREMIA Admit Date/Time: 07/18/18 20:35 Admit Provider: Manohar Bowman Attending Provider: Manohar Bowman Primary Care Provider: Aileen Macias Hosptial Course Hospital Course: This is a 43-year-old male that presented initially to [facility] on 07/13/2018 because of roughly 1 month of fever chills and malaise. Because of his history of IV drug abuse blood cultures were obtained, with his history it was recommended he be admitted to the hospital. He declined admission and therefore was placed on Levaquin and clindamycin as empiric therapy for possible bacterial endocarditis. Within the next 24 hours his blood cultures turned positive for anaerobic gram-positive rods later identified as microbacteria (corynebacteria). He was called at home and again recommended admission to the hospital. He opted to wait and go to his primary care physician on 07/18/2018. PCP referred him to the emergency room. He was admitted for IV antibiotics. The emergency room physician spoke with infectious disease at [facility] who recommended vancomycin as empiric therapy. Patient received IV vancomycin initially twice daily then every 8 hours then every 6 hours based on trough levels. He had an echocardiogram on 07/19/2018 that showed no evidence of vegetation, no valvular dysfunction, no LV dysfunction. It was recommended he have a trans esophageal echocardiogram but this could not be facilitated during this admission. I spoke with Dr. Ulloa, infectious disease at [facility]. She recommended daptomycin 8 mg/kg daily ?2 weeks. Outpatient transesophageal echocardiogram which if positive would prolong antibiotic therapy to 6 weeks. Home Meds and New Rx's Prescriptions: Discontinued clindamycin HCl 150 mg capsule 450 mg PO TID 10 Days Qty: 90 RF: 0 levofloxacin [Levaquin] 750 mg tablet 750 mg PO DAILY 10 Days Qty: 10 RF: 0 Discharge Instructions Instructions: Endocarditis (DC) Additional Instructions: Daptomycin 500 mg via IV each evening at 8 pm x 13 more doses, starting with 07/20/18 dose. New IV to be placed nightly and discontinued at discharge. Trans esophageal echo (SUMMER) to be set up for Tuesday, July 26. Do not eat or drink after midnight prior to 07/26/18. Stand Alone Forms: Nursing Discharge Form Activity:: Activity as Tolerated Equipment/Supplies:: No Equipment Needed Diet:: as tolerated Discharge Orders Discharge Orders: Discharge Order (Routine); Ordered 07/20/18 Ordered By: Natan Nye Discharge Data Discharge Comment: after Daptomycin dose at 8:30 PM tonight, then D/C IV. DS: Summary Time spent discussing smoking cessation with patient: 3 to 10 minutes Status at Discharge Functional status at discharge: independent ambulation Time Spent with Patient Greater than 30 minutes Exam Narrative Exam Narrative: Patient is active moving around his room without any physical problems or ailments. His only complaint is a focal area of tenderness in the left rib cage. Exam of that region along the axillary line shows no deformity no erythema no outward sign of abnormality. It is a reproducible pain along the rib margin. His lung exam is completely clear the heart sounds are regular and there is no murmur abdomen is nontender he had no other skin lesions or stigmata of endocarditis. DS: Data Vitals/I&O Vitals and I&O: Vital Signs Temp 36.6 C 07/20/18 16:02 Pulse 91 H 07/20/18 16:02 Resp 18 07/20/18 16:02 BP 120/86 07/20/18 16:02 Pulse Ox 99 07/20/18 16:02 Intake & Output 07/19/18 07/20/18 07/20/18 23:59 11:59 23:59 Intake Total 740 / 740 1443.033 / 1443.033 240 / 240 Balance 740 / 740 1443.033 / 1443.033 240 / 240 Intake: IV 250 / 250 733.033 / 733.033 Oral 490 / 490 710 / 710 240 / 240 Other: Urine Color Yellow Urine Appearance Clear Urine Odor Normal Comment pt voiding ad juan in toilet; not observed by nursing at this time Voiding Methods Toilet Toilet Labs on day of discharge: Labs from last 24 hours 07/20/18 07/20/18 07/20/18 06:50 06:50 06:50 WBC 7.49 RBC 5.37 Hgb 15.9 Hct 47.7 MCV 88.8 MCH 29.6 MCHC 33.3 RDW 14.0 Plt Count 335 MPV 9.4 Immature Gran % 0.5 Neutrophils % 53.9 Lymphocytes % 32.0 Monocytes % 6.9 Eosinophils % 6.0 Basophils % 0.7 Absolute Neutrophils 4.03 Absolute Lymphocytes 2.40 Absolute Monocytes 0.52 Absolute Eosinophils 0.45 Absolute Basophils 0.05 Sodium 139 Potassium 4.2 Chloride 106 Carbon Dioxide 26.5 Anion Gap 6.5 BUN 14 Creatinine 0.96 Estimated GFR/1.73 m2 >= 60.00 Glucose 100 Calcium 8.9 Vancomycin Trough 18.7 Preliminary micro results at discharge 07/18/18 17:50 Blood Culture - Preliminary Blood NO GROWTH 24 HOURS 07/18/18 17:15 Blood Culture - Preliminary Blood NO GROWTH 24 HOURS Echocardiogram on 07/19/2018 showed no evidence of vegetations, no significant valvular abnormality, no LV dysfunction.
--- NOTE | 2018-07-20 17:56 | DSE_ITS ---
Date of service: 07/20/18 Time of Service: 17:52 DS: Diagnosis Discharge Diagnosis (1) Bacteremia: Status: Acute Asessment and Plan: 2 of 2 bottles growing microbacteria, presumed to be a corynebacterium species. Sensitivities pending from [facility]. Empiric therapy with daptomycin 500 mg nightly ?13 more doses. (2) IV drug abuse: Status: Acute Asessment and Plan: Presumably the cause of the bacteremia. Counseling and education around clean technique, using clean needles, safe drug usage. (3) Hepatitis C antibody test positive: Status: Acute Asessment and Plan: HCV as of 07/04/2018. No treatment as yet. (4) Tobacco abuse: Status: Acute Asessment and Plan: Ongoing smoking cessation discussions. (5) Discharge planning issues: Status: Acute Asessment and Plan: Arranged for outpatient IV daptomycin infusions nightly ?2 more weeks. Follow-up with Aileen Macias NP. Discharge Plan Disposition Patient Disposition: HOME Condition: Stable Discharge Details Reason For Visit: BACTEREMIA Admit Date/Time: 07/18/18 20:35 Admit Provider: Manohar Bowman Attending Provider: Manohar Bowman Primary Care Provider: Aileen Macias [facility] Course Hospital Course: This is a 43-year-old male that presented initially to [facility] on 07/13/2018 because of roughly 1 month of fever chills and malaise. Because of his history of IV drug abuse blood cultures were obtained, with his history it was recommended he be admitted to the hospital. He declined admission and therefore was placed on Levaquin and clindamycin as empiric therapy for possible bacterial endocarditis. Within the next 24 hours his blood cultures turned positive for anaerobic gram-positive rods later identified as microbacteria (corynebacteria). He was called at home and again recommended admission to the hospital. He opted to wait and go to his primary care physician on 07/18/2018. PCP referred him to the emergency room. He was admitted for IV antibiotics. The emergency room physician spoke with infectious disease at [facility] who recommended vancomycin as empiric therapy. Patient received IV vancomycin initially twice daily then every 8 hours then every 6 hours based on trough levels. He had an echocardiogram on 07/19/2018 that showed no evidence of vegetation, no valvular dysfunction, no LV dysfunction. It was recommended he have a trans esophageal echocardiogram but this could not be facilitated during this admission. I spoke with Dr. Ulloa , infectious disease at [facility]. She recommended daptomycin 8 mg/kg daily ?2 weeks. Outpatient transesophageal echocardiogram which if positive would prolong antibiotic therapy to 6 weeks. Home Meds and New Rx's Prescriptions: Discontinued clindamycin HCl 150 mg capsule 450 mg PO TID 10 Days Qty: 90 RF: 0 levofloxacin [Levaquin] 750 mg tablet 750 mg PO DAILY 10 Days Qty: 10 RF: 0 Discharge Instructions Instructions: Endocarditis (DC) Additional Instructions: Daptomycin 500 mg via IV each evening at 8 pm x 13 more doses, starting with dose. New IV to be placed nightly and discontinued at discharge. Trans esophageal echo (SUMMER) to be set up for Tuesday, July 26. Do not eat or drink after midnight prior to 07/26/18. Stand Alone Forms: Nursing Discharge Form Activity:: Activity as Tolerated Equipment/Supplies:: No Equipment Needed Diet:: as tolerated Discharge Orders Discharge Orders: Discharge Order (Routine); Ordered 07/20/18 Ordered By: Natan Nye Discharge Data Discharge Comment: after Daptomycin dose at 8:30 PM tonight, then D/C IV. DS: Summary Time spent discussing smoking cessation with patient: 3 to 10 minutes Status at Discharge Functional status at discharge: independent ambulation Time Spent with Patient Greater than 30 minutes Exam Narrative Exam Narrative: Patient is active moving around his room without any physical problems or ailments. His only complaint is a focal area of tenderness in the left rib cage. Exam of that region along the axillary line shows no deformity no erythema no outward sign of abnormality. It is a reproducible pain along the rib margin. His lung exam is completely clear the heart sounds are regular and there is no murmur abdomen is nontender he had no other skin lesions or stigmata of endocarditis. DS: Data Vitals/I&O Vitals and I&O: Vital Signs Temp 36.6 C 07/20/18 16:02 Pulse 91 H 07/20/18 16:02 Resp 18 07/20/18 16:02 BP 120/86 07/20/18 16:02 Pulse Ox 99 07/20/18 16:02 Intake & Output 07/19/18 07/20/18 07/20/18 23:59 11:59 23:59 Intake Total 740 / 740 1443.033 / 1443.033 240 / 240 Balance 740 / 740 1443.033 / 1443.033 240 / 240 Intake: IV 250 / 250 733.033 / 733.033 Oral 490 / 490 710 / 710 240 / 240 Other: Urine Color Yellow Urine Appearance Clear Urine Odor Normal Comment pt voiding ad juan in toilet; not observed by nursing at this time Voiding Methods Toilet Toilet Labs on day of discharge: Labs from last 24 hours 07/20/18 07/20/18 07/20/18 06:50 06:50 06:50 WBC 7.49 RBC 5.37 Hgb 15.9 Hct 47.7 MCV 88.8 MCH 29.6 MCHC 33.3 RDW 14.0 Plt Count 335 MPV 9.4 Immature Gran % 0.5 Neutrophils % 53.9 Lymphocytes % 32.0 Monocytes % 6.9 Eosinophils % 6.0 Basophils % 0.7 Absolute Neutrophils 4.03 Absolute Lymphocytes 2.40 Absolute Monocytes 0.52 Absolute Eosinophils 0.45 Absolute Basophils 0.05 Sodium 139 Potassium 4.2 Chloride 106 Carbon Dioxide 26.5 Anion Gap 6.5 BUN 14 Creatinine 0.96 Estimated GFR/1.73 m2 >= 60.00 Glucose 100 Calcium 8.9 Vancomycin Trough 18.7 Preliminary micro results at discharge 07/18/18 17:50 Blood Culture - Preliminary Blood NO GROWTH 24 HOURS 07/18/18 17:15 Blood Culture - Preliminary Blood NO GROWTH 24 HOURS Echocardiogram on 07/19/2018 showed no evidence of vegetations, no significant valvular abnormality, no LV dysfunction.
[2018-07-20 19:02] LABS: Creatine Kinase 26 U/L (39-308)
--- NOTE | 2018-08-14 08:38 | PDOC.CMPRO ---
Care Management Progress Note Jessica Dean; [facility] CM called to report she continues to attempt to meet with Kevin but due to his work schedule, there has not been a successful meeting yet. They have made phone contact and Karyn reports she will be attempting to see Kevin at his next doctor's appointment scheduled for next week. Kevin is currently attending infusion room before and after work at 0500 and 1900, daily per report.
[2018-09-05] MEDS: Normal Saline Flush 10 ML SYR IVP (14:01)
== END 2018-07-20 20:50 | disposition home or self-care (01) | DRG 872 ==
LOC: ER 19:55 → MS 21:10
PROVIDERS: Family Medicine; Admitting Provider General Practice; Emergency Provider Physician Assistant; PCP Nurse Practitioner; Visit Provider General Practice
DX: R78.81 Bacteremia (principal); B96.89 Other specified bacterial agents as the cause of diseases classified elsewhere; F19.10 Other psychoactive substance abuse, uncomplicated; B19.20 Unspecified viral hepatitis C without hepatic coma; F17.210 Nicotine dependence, cigarettes, uncomplicated; Z71.51 Drug abuse counseling and surveillance of drug abuser; I34.0 Nonrheumatic mitral (valve) insufficiency
CPT/HCPCS: 36415; 80048; 80053; 80076; 82550; 87040; 93005; 96360; 96361; 99222; 99232; 99239; 99285; 71046; 80202; 81003; 83605; 83735; 84484; 85025; 85610; 85730; 93010; 93306; 99221; J0878

== ENCOUNTER 2018-07-26 17:47 | Inpatient (IN) | payer MEDICAID, SELFPAY ==
[2018-07-26 17:54] VITALS: BP 127/85; PULSE 65; RESP 18; TEMP 36.7; O2SAT 95
--- NOTE | 2018-07-26 18:35 | HPE_ITS ---
Date of service: 07/26/18 Time of Service: 18:18 Assessment and Plan (1) IV drug abuse: Current visit: Yes Status: Acute Ongoing IV drug abuse. States he is using clean works. There is concern about recurrent bacteremia despite what seems like adequate IV antibiotic regimen. Plan is to recheck blood cultures, CBC D, CMP, ESR, CRP. Will restart on vancomycin 1 g IV every 8 hours. (2) Bacteremia: Current visit: Yes Status: Acute Previous organism microbacterium with sensitivities as noted in HPI. It was only tested against vancomycin. Will restart vancomycin IV. Reconsult infectious disease as to where to move forward. There is ongoing concern about endocarditis. Ideally will check SUMMER during this admission. Cardiology consult was ordered. (3) Hepatitis C antibody test positive: Current visit: Yes Status: Acute Comprehensive metabolic panel is ordered. He is not jaundiced. He does not show stigmata of acute hepatitis (4) Tobacco abuse: Current visit: Yes Status: Acute Ongoing tobacco abuse and tobacco cravings. Will provide nicotine replacement. (5) Discharge planning issues: Current visit: Yes Status: Acute Readmitted after discharge on 07/20/2018. This could represent a failure of the daptomycin however with him admitting to ongoing IV drug abuse I am concerned about her recurrent bacteremia, recurrent endocarditis. I am not optimistic that we can prevent recurrent infections with ongoing drug use. History of Present Illness Chief Complaint: Endocarditis Narrative: 43-year-old male recently admitted for microbacterium bacteremia, suspected endocarditis. He presented with a one-month history of shaking chills and fevers. On 07/13/2018 he was recommended for admission but declined. Blood cultures from that ER visit came back positive for microbacteria. He was again recommended for admission but declined. On 07/18/2018 he was referred to the emergency room from his primary care provider's office. He was admitted to [facility]. He was empirically treated with IV vancomycin. Infectious disease was consulted and recommended daptomycin once daily which she has been receiving since discharge on 07/20/2018. He states he used IV drugs this past weekend. He states he used clean works . He was seen by his primary care provider today and said he was not feeling much better. He was having night sweats. He denies having fevers or shakes. Dr. gant felt that this represented a failure of the outpatient antibiotic regimen. The sensitivities on the microbacterium came back #1 penicillin? intermediate #2 erythromycin?resistant #3 vancomycin?susceptible. The bacteria was not tested against daptomycin or Zyvox. The feeling was this may represent a failure of the daptomycin. He is being admitted for IV vancomycin which worked well during his last admission. He has not had the transesophageal echocardiogram as of yet. Review of Systems Review of Systems As noted in HPI he has primarily had night sweats. He denies any recurrent fevers or chills. Constitutional Denies chills, Reports excessive sweating and Denies fever(s) Cardiovascular Denies chest pain at rest Respiratory Reports cough (Occasional cough once or twice daily.) Gastrointestinal Reports system reviewed and no additional complaints, except as docu Genitourinary Reports system reviewed and no additional complaints, except as docu Musculoskeletal Reports system reviewed and no additional complaints, except as docu Integumentary/Breasts Denies changing lesions Neurologic Reports system reviewed and no additional complaints, except as docu Psychiatric Reports system reviewed and no additional complaints, except as docu Endocrine Reports excessive sweating [facility] Social History Smoking/Tobacco Use Status: Current every day Meds Allergies Allergy/AdvReac Type Severity Reaction Status Date / Time gabapentin Allergy Intermediate Itching, Unverified 07/18/18 17:32 jumpy Exam Narrative Exam Narrative: Pleasant, no apparent distress, he is lucid and interactive, smiling Const General: cooperative, comfortable and no acute distress Nutritional Appearance: underweight Orientation: alert, awake and oriented x3 HENMT Head: normal to inspection Ears: hearing grossly normal bilaterally Face and sinus: normal facial exam Eyes Alignment and Position: alignment normal Periorbital: periorbital findings abnormal Pupils: PERRL Neck Neck: normal visual inspection Chest Chest: normal inspection of the chest Resp Effort & Inspection: normal respiratory effort Auscultation: crackles (Both bases at the very bottom.) Cardio Rate: regular rate Rhythm: regular rhythm Heart Sounds: no murmurs GI Palpation: soft and nontender Back/Spine/Pelvis Back: no CVA tenderness Cervical Spine: normal cervical lordosis Thoracic/Lumbar Spine: thoracic and lumbar spine normal to inspection Skin General skin exam: no rashes or lesions noted (Track posey on the right and left forearm are noninfected or inflamed) Neuro General: moves all extremities and no focal motor deficits Extrem General: normal to inspection and no edema Results Labs : 07/26/18 18:00 07/26/18 18:00
[2018-07-26 18:40] LABS: Abs Immature Grans 0.02 k/cumm (0.0-0.09); Absolute Basophil Count 0.04 k/cumm (0.0-0.2); Absolute Eosinophil Count 0.36 k/cumm (0.0-0.7); Absolute Lymphocyte Count 1.75 k/cumm (1.2-3.4); Absolute Monocyte Count 0.44 k/cumm (0.11-0.7); Absolute Neutrophil Count 3.48 k/cumm (1.2-6.7); Basophils % 0.7; Eosinophils % 5.9; HCT 43.9 % (40.0-50.0); HGB 15.2 g/dL (13.5-17.5); Immature Grans % 0.3; Lymphocytes % 28.7; Mean Corp. HGB Concentration 34.6 g/dL (32.0-36.0); Mean Corpuscular Hemoglobin 30.3 pg (27.0-33.0); Mean Corpuscular Volume 87.5 fL (80-95); Mean Platelet Volume 9.8 fL (8.0-11.0); Monocytes % 7.2; Neutrophils % 57.2; Platelet Count 280 x1000/uL (130-400); RBC 5.02 m/cumm (4.50-6.00); RBC Distribution Width 13.6 % (11.8-14.1); White Blood Cell Count 6.09 k/cumm (4.4-10.8)
[2018-07-26 18:52] LABS: C-Reactive Protein 2.37 mg/dL (0.0-0.3)
[2018-07-26 18:56] LABS: ALT 144 U/L (12-78); AST 87 U/L (15-37); Albumin 3.4 g/dL (3.4-5.0); Alkaline Phosphatase 126 U/L (46-116); Anion Gap 8.4 mmol/L (3-11); BUN 8 mg/dL (7-18); Bilirubin, Total 0.7 mg/dL (0.2-1.0); CO2 26.6 mmol/L (21.0-32.0); CREATININE 0.75 mg/dL (0.70-1.30); Calcium 8.6 mg/dL (8.5-10.1); Chloride 106 mmol/L (98-107); Glucose 110 mg/dL (70-100); Potassium 3.9 mmol/L (3.5-5.1); Sodium 141 mmol/L (136-145); Total Protein 7.3 g/dL (6.4-8.2)
[2018-07-26 19:15] LABS: ESR 40 MM/HR (0-15)
[2018-07-26 20:20] VITALS: BP 119/80; PULSE 76; RESP 18; TEMP 36.7; O2SAT 97
[2018-07-26] MEDS: Nicotine 21 MG/24 HR PATCH TD (20:32)
[2018-07-26] MEDS: VANCOMYCIN 1,000 MG in Normal Saline 250 ML 166.667 MG IVPB (20:34)
[2018-07-26 23:44] VITALS: BP 109/74; PULSE 82; RESP 17; TEMP 37.1; O2SAT 99
[2018-07-27 03:40] VITALS: BP 126/86; PULSE 70; RESP 18; TEMP 37; O2SAT 98
[2018-07-27] MEDS: Ibuprofen 600 MG TAB PO ×2 (06:51→22:56)
--- NOTE | 2018-07-27 06:57 | NUR.NOTE ---
Nursing Note: Vancomycin scheduled at 04:00 hrs. not given, No IV access. Multiple attempts done for peripheral lines but patient stated the its painful and burning and will not leave it on. MD made aware. Ibuprofen ordered for pain, back to bed and emains asleep. Lovenox was also refused at bedtime, pt stated because MD did not explain to him. He wants MD to come for explaination, MD notified. Call lights at reach.
[2018-07-27 07:27] LABS: Abs Immature Grans 0.01 k/cumm (0.0-0.09); Absolute Basophil Count 0.05 k/cumm (0.0-0.2); Absolute Eosinophil Count 0.36 k/cumm (0.0-0.7); Absolute Lymphocyte Count 1.56 k/cumm (1.2-3.4); Absolute Neutrophil Count 4.22 k/cumm (1.2-6.7); Basophils % 0.7; Eosinophils % 5.4; HCT 44.3 % (40.0-50.0); Immature Grans % 0.1; Lymphocytes % 23.3; Mean Corp. HGB Concentration 33.9 g/dL (32.0-36.0); Mean Corpuscular Hemoglobin 29.9 pg (27.0-33.0); Mean Corpuscular Volume 88.4 fL (80-95); Monocytes % 7.5; Platelet Count 295 x1000/uL (130-400); RBC 5.01 m/cumm (4.50-6.00); RBC Distribution Width 13.6 % (11.8-14.1)
[2018-07-27 07:40] VITALS: BP 101/64; PULSE 68; RESP 19; TEMP 36.8; O2SAT 99
[2018-07-27 07:42] LABS: ALT 162 U/L (12-78); AST 92 U/L (15-37); Albumin 3.3 g/dL (3.4-5.0); Alkaline Phosphatase 125 U/L (46-116); Anion Gap 8.3 mmol/L (3-11); BUN 8 mg/dL (7-18); Bilirubin, Total 0.6 mg/dL (0.2-1.0); CO2 28.7 mmol/L (21.0-32.0); CREATININE 0.81 mg/dL (0.70-1.30); Chloride 104 mmol/L (98-107); Glucose 96 mg/dL (70-100); Sodium 141 mmol/L (136-145); Total Protein 7.5 g/dL (6.4-8.2)
[2018-07-27 11:05] VITALS: BP 114/78; PULSE 75; RESP 18; TEMP 36.4; O2SAT 96
[2018-07-27 11:32] LABS: *AMPHETAMINES SCREEN URINE Negative (Negative); *BARBITURATES SCREEN URINE Negative (Negative); *BENZODIAZEPINES SCREEN URINE Negative (Negative); Cannabinoids THC POSITIVE (Negative); Cocaine Screen,Urine POSITIVE (Negative); METHADONE URINE SCREEN Negative (Negative); OPIATES URINE SCREEN Negative (Negative)
[2018-07-27 11:36] LABS: Tricyclic Antidepressants Negative (Negative)
[2018-07-27] MEDS: Normal Saline Flush 10 ML SYR IVP ×4 (13:15→22:20)
[2018-07-27] MEDS: VANCOMYCIN 1,000 MG in Normal Saline 250 ML 166.6666 MG IVPB (13:15)
[2018-07-27] MEDS: Nicotine 21 MG/24 HR PATCH TD (13:53)
--- NOTE | 2018-07-27 14:55 | CHAPLAIN ---
Kevin was lying in bed when I visited. We remembered each other from his previous admission. He again said that he doesn't have any friends who will visit and asked about getting a patient laptop. (Electrical Engineering Draftsperson Marielle Pena arranged for this.) I'll continue to visit Kevin.
--- NOTE | 2018-07-27 16:02 | PHARADMIT ---
Addendum entered by Peace Pretty 08/06/18 11:56: Pharmacy Note Subjective Patient to remain here till Tuesday. Patient will be transitioned to Infusion patient and Vancomycin dosing will go to BID Objective vs ok, no labs today except Vanco trough today 17.7 Assessment no changes in vanco dose or frequency at this time, no med changes noted Plan for oupt infusion MD needs twice daily vanco dosing. new kinetics info puts twice daily dose vanco at 1750mg dose with a trough of 14.8 (MDA) Original Note: Addendum entered by Lamin Vega III 08/04/18 14:37: Pharmacy Note Subjective Patient to remain here till Tuesday. Patient will be transitioned to Infusion patient and Vancomycin dosing will go to BID (MD aware Troughs will be low. (Vancomycin 2gm q12hrs at that time Objective VS-OK Labs-WNL No BM yet Wgt-63.2 kg Assessment Vancomycin trough (20.2) current dose given, next dose re-timed forward 2 hours. Plan Watch Vancomycin troughs, current dose 1gm IV q8hrs Original Note: Addendum entered by Lamin Vega III 08/03/18 17:05: Pharmacy Note Subjective Patient with need IV Vanomycin x 6 weeks. Plan was to transfer to swing bed, changed to infusion room patient, then decided to keep him regular admit over the weekend Objective VS-OK Lytes,WBC,H&H,Plts,SCr-OK No BM yet Assessment missed getting trough then his dose was to change to q12 from q8h, now q8h continues. Plan Vancomycin trough at 11am on 08/04 Original Note: Addendum entered by Lamin Vega III 08/02/18 16:45: Pharmacy Note Subjective SUMMER was negative, CT Scan ordered today, then MD to check with [facility] Objective VS-OK Labs-WNL SCr- 0.87 BG-86 No BM Wgt-up 62.9kg Assessment Vancomycin trough (19.6), calculated to 17.1 though RxKinetics, Continuing same dose. Plan Awaiting ID consult regarding whether to treat for Endocarditis x 6 weeks. Original Note: Addendum entered by Lamin Vega III 07/31/18 10:57: Pharmacy Note Subjective SUMMER is scheduled for tomorrow. Looks like patient will require 6 weeks of IV ABX therapy after failing Oral Daptomycin. Objective VS-OK Labs OK SCr-0.82 No BM reported yet. Assessment Awaiting Vanco trough today at [address] scan is negative,MD to order full body CT to look for source of infection. Original Note: Addendum entered by Ekta Hatfield 07/30/18 14:30: Pharmacy Note Subjective SUMMER tuesday morning Objective bp-99/66 other VS okay SCr-0.77 Assessment vanco trough came back slightly high yesterday so held off on dose for two hours then restarted 1 gram Q6H as the calculations suggested the same dose, trough came back even higher today so dose adjusted to 1250 mg Q8H to target a trough of 15.1, trough scheduled for tomorrow afternoon repeat blood cultures pending enoxaparin ordered daily Plan watch for vanco trough and blood culture results Original Note: Addendum entered by Peace Pretty 07/28/18 14:15: Pharmacy Note Subjective no md note yet today, ? length of treatment needed Objective VS OK, BC NO GROWTH 24 HOURS Assessment Vancomycin continues, trough 11.5 adjusted dose to get trough up to 17.9, enoxaparin stopped Plan ordered trough for 07/29 @1100 to evaluate new dose Original Note: Admission Pharmacy Clinical Review ENDOCARDITIS Code Status Full Code Current Weight 60.7 kg Renally Cleared and Narrow Therapeutic Index Meds CRCL ~103ML/MIN QTc Value / Action Taken BP Control, Fever 114/78 AFEBRILE Electrolytes reviewed OK DVT Prophylaxis ENOXAPARIN(PT REFUSED TODAYS DOSE) Opiate Usage / Scheduled Bowel Regimen Ordered NO/PRN Plt/SCr for Heparin / Enoxaparin 295/0.81 INR for Warfarin NA H/H stable, WBC/Bands 15.0/44.3 WBC 6.70 Antibiotic appropriateness VANCOMYCIN Cultures and Sensitivities BC PENDING Surgical ABX d/c within 24 hr NA DM control / Insulin Dosing NA Heart Failure (Check EF%) (NEIL's, B-Block, Diuretics) NA IV to PO Switch IV ABX, IID Home Meds Reviewed NA Home Meds Not Ordered NO HOME MEDS LISTED Comments
[2018-07-27 16:46] VITALS: BP 122/71; PULSE 82; RESP 20; TEMP 37; O2SAT 97
--- NOTE | 2018-07-27 19:13 | INITIAL_ITS ---
Care Management Initial Assess REASON FOR HOSPITALIZATION:: Endocarditis PAST MEDICAL HISTORY/PAST SURGICAL HISTORY:: Hepatitic C, Shoulder surgery, IV drug use PREVIOUS FUNCTIONAL STATUS/SOCIAL/FAMILY SUPPORTS:: Kevin resides in [place], [place] with friends at this time. Kevin works at [employer] and states that he has worked for [employer] on and off for 17 years. Kevin is independent, he drives, and manages ADL's. He shares the mother of his two children (13,11), Delmy is a support and advocate for him. He has a car but not currently a license. He has Medicaid and pays child support. He reports feeling overwhelmed with bills and missing work due to medical needs. He struggles to remember things he likes to do, saying everything costs money. He reports playing soccer as a kid and enjoying watching television. He states he has no natural supports though his mother is listed in his demographic information. He states wanting to be a DNR/DNI. CURRENT FUNCTIONAL STATUS:: Kevin is lying in bed when CM meets with him. He is fully engaged and answers all questions fully. He reports using drugs including IV drugs occassionally but does not like being treated differently because of it. ADVANCE DIRECTIVES:: None on file Has patient been provided with information about the portal?: No Did the patient sign up for the portal?: No CODE STATUS:: Full Code INSURANCE COVERAGE / FINANCIAL ISSUES:: Medicaid CURRENT HOME/COMMUNITY SERVICES/EQUIPMENT:: Kevin has been attending [facility] infusion room. PRIMARY CARE PHYSICIAN:: Aileen Macias POTENTIAL DISCHARGE NEEDS:: Appointment with PCP PATIENT/FAMILY EDUCATION NEEDS:: Review DC instructions, any limitations, and ongoing DC planning discussion. ANTICIPATED BARRIERS TO DISCHARGE:: None identified at this time. TRANSPORTATION:: Via private vehicle. PLAN:: Undetermined at this time. Kevin had a midline placed and will continue to be treated with IV ABX. CM will continue to follow and support discharge planning considerations.
[2018-07-27 19:59] VITALS: BP 136/80; PULSE 81; RESP 18; TEMP 36.8; O2SAT 99
[2018-07-27] MEDS: VANCOMYCIN 1,000 MG in Normal Saline 250 ML 167 MG IVPB (20:15)
[2018-07-27 23:56] VITALS: O2SAT 97
[2018-07-28 00:35] VITALS: BP 128/76; PULSE 85; RESP 16; TEMP 37.5; O2SAT 97
[2018-07-28] MEDS: VANCOMYCIN 1,000 MG in Normal Saline 250 ML 167 MG IVPB ×2 (03:51→12:10)
[2018-07-28 07:30] VITALS: BP 114/77; PULSE 87; RESP 18; TEMP 36.4; O2SAT 97
[2018-07-28] MEDS: Ibuprofen 600 MG TAB PO ×2 (08:58→15:01)
--- NOTE | 2018-07-28 12:01 | NUR.NOTE ---
1135: pt requests to go outside to give someone something. this scribe brings pt outside with consent form primary RN, Bhavna Carlton. pt meets with someone in a silver car who takes his paycheck to be deposited. pt outside for approximately 7 minutes. pt returns to unit without incident. Nursing Note:
[2018-07-28 12:04] LABS: Vancomycin, Trough 11.5 ug/mL (10.0-20.0)
[2018-07-28] MEDS: Normal Saline Flush 10 ML SYR IVP ×3 (12:22→20:18)
--- NOTE | 2018-07-28 13:06 | PDOC.CMPRO ---
- If Service Date Differs Date of service: 07/28/18 Time of Service: 13:06 Care Management Progress Note S/O: Kevin is lying in bed when this creative writer visits, he as a friend visiting with him in the room. GUERRERO discussed CM role and Kevin stated that he was doing fine and didn't need anything. Kevin has a laptop which GUERRERO Palomares, arranged for him which he is using in his room. Kevin stated I think I'm here until I'm all better this time. Kevin' friend asked about short term disability and GUERRERO stated that FRANCOIS would assist with this information. A: 43 y/o male admitted 07/26/18 with Endocarditis P: ? length of stay for IV antibiotics. Kevin will return home once medically cleared. He will F/U with PCP and plan of care as prescribed. Kevin' friend will transport.
--- NOTE | 2018-07-28 13:41 | CMPROGNOTE_ITS ---
- If Service Date Differs Date of service: 07/28/18 Time of Service: 13:06 Care Management Progress Note S/O: Kevin is lying in bed when this justowriter operator visits, he as a friend visiting with him in the room. GUERRERO discussed CM role and Kevin stated that he was doing fine and didn't need anything. Kevin has a laptop which GUERRERO Palomares, arranged for him which he is using in his room. Kevin stated I think I'm here until I'm all better this time. Kevin' friend asked about short term disability and GUERRERO stated that FRANCOIS would assist with this information. A: 43 y/o male admitted 07/26/18 with Endocarditis P: ? length of stay for IV antibiotics. Kevin will return home once medically cleared. He will F/U with PCP and plan of care as prescribed. Kevin' friend will transport.
[2018-07-28 15:16] VITALS: BP 121/74; PULSE 70; RESP 18; TEMP 36.5; O2SAT 100
[2018-07-28 16:20] VITALS: BP 126/84; PULSE 88; RESP 18; TEMP 36.8; O2SAT 98
--- NOTE | 2018-07-28 17:18 | PGE_ITS ---
Documented by User: Fabby Baker NP 07/28/18 18:20 Date of service: Time of Service: Subjective Interval history since last seen: 43-year-old male recently admitted for microbacterium bacteremia, suspected endocarditis. He presented with a one- month history of shaking chills and fevers. On 07/13/2018 he was recommended for admission but declined. Blood cultures from that ER visit came back positive for microbacteria. He was again recommended for admission but declined. On 09/2018 he was referred to the emergency room from his primary care provider's office. He was admitted to [facility]. He was empirically treated with IV vancomycin. Infectious disease was consulted and recommended daptomycin once daily which she has been receiving since discharge on 07/20/2018. He states he used IV drugs this past weekend (since his discharge from the hospital). He states he used clean needles. He was seen by his primary care provider two days ago and reported that he was not feeling much better. He was having night sweats. He denied having fevers or shakes. There was concern that this represented a failure of the outpatient antibiotic regimen and he was admitted to the hospital for IV vancomycin. He did have an ECHO during his last hospitalization on 07/19/18, which revealed no significant valvular disease. His case was discussed with cardiology. He will need to have a SUMMER to determine his course of treatment. He is tentatively scheduled for SUMMER on Tuesday. He will need to be NPO after midnight the night prior to the test. Today he reports continued sweats and chills last night. He has some mild left chest discomfort that is reproducible on palpation. He has a mild headache. Otherwise, he feels somewhat better than he did when he came in. Exam Const General: Orientation: [facility] Head: Mouth: Neck Neck: Resp Effort & Inspection: Auscultation: Cardio Rate: Heart Sounds: Pulses: GI Palpation: Auscultation: Skin General skin exam: Extrem General: Objective Objective Clinical Data: Vital Signs Temp 36.8 C 07/28/18 16:20 Pulse 88 07/28/18 16:20 Resp 18 07/28/18 16:20 BP 126/84 07/28/18 16:20 Pulse Ox 98 07/28/18 16:20 Intake & Output 07/27/18 07/28/18 07/28/18 23:59 11:59 23:59 Intake Total 1020 / 1020 740 / 740 Balance 1020 / 1020 740 / 740 Weight 57.5 kg Intake: IV 540 / 540 250 / 250 Oral 480 / 480 490 / 490 Other: Urine Color Straw Urine Appearance Clear Urine Odor None Comment Void x1 in the toilet. Voiding Methods Toilet Laboratory Results WBC 6.70 k/cumm (4.4-10.8) 07/27/18 06:25 RBC 5.01 m/cumm (4.50-6.00) 07/27/18 06:25 Hgb 15.0 g/dL (13.5-17.5) 07/27/18 06:25 Hct 44.3 % (40.0-50.0) 07/27/18 06:25 MCV 88.4 fL (80-95) 07/27/18 06:25 MCH 29.9 pg (27.0-33.0) 07/27/18 06:25 MCHC 33.9 g/dL (32.0-36.0) 07/27/18 06:25 RDW 13.6 % (11.8-14.1) 07/27/18 06:25 Plt Count 295 x1000/uL (130-400) 07/27/18 06:25 MPV 10.0 fL (8.0-11.0) 07/27/18 06:25 Immature Gran % 0.1 07/27/18 06:25 Neutrophils % 63.0 07/27/18 06:25 Lymphocytes % 23.3 07/27/18 06:25 Monocytes % 7.5 07/27/18 06:25 Eosinophils % 5.4 07/27/18 06:25 Basophils % 0.7 07/27/18 06:25 Absolute Neutrophils 4.22 k/cumm (1.2-6.7) 07/27/18 06:25 Absolute Lymphocytes 1.56 k/cumm (1.2-3.4) 07/27/18 06:25 Absolute Monocytes 0.50 k/cumm (0.11-0.7) 07/27/18 06:25 Absolute Eosinophils 0.36 k/cumm (0.0-0.7) 07/27/18 06:25 Absolute Basophils 0.05 k/cumm (0.0-0.2) 07/27/18 06:25 ESR 40 MM/HR (0-15) H 07/26/18 18:15 Sodium 141 mmol/L (136-145) 07/27/18 06:25 Potassium 4.0 mmol/L (3.5-5.1) 07/27/18 06:25 Chloride 104 mmol/L (98-107) 07/27/18 06:25 Carbon Dioxide 28.7 mmol/L (21.0-32.0) 07/27/18 06:25 Anion Gap 8.3 mmol/L (3-11) 07/27/18 06:25 BUN 8 mg/dL (7-18) 07/27/18 06:25 Creatinine 0.81 mg/dL (0.70-1.30) 07/27/18 06:25 Estimated GFR/1.73 m2 >= 60.00 (mL/min/1.73m2) 07/27/18 06:25 Glucose 96 mg/dL (70-100) 07/27/18 06:25 Calcium 9.0 mg/dL (8.5-10.1) 07/27/18 06:25 Total Bilirubin 0.6 mg/dL (0.2-1.0) 07/27/18 06:25 AST 92 U/L (15-37) H 07/27/18 06:25 ALT 162 U/L (12-78) H 07/27/18 06:25 Alkaline Phosphatase 125 U/L (46-116) H 07/27/18 06:25 C-Reactive Protein 2.37 mg/dL (0.0-0.3) H 07/26/18 18:15 Total Protein 7.5 g/dL (6.4-8.2) 07/27/18 06:25 Albumin 3.3 g/dL (3.4-5.0) L 07/27/18 06:25 Vancomycin Trough 11.5 ug/mL (10.0-20.0) 07/28/18 11:40 Urine Opiates Screen Negative (Negative) 07/27/18 10:58 Urine Methadone Screen Negative (Negative) 07/27/18 10:58 Ur Barbiturates Screen Negative (Negative) 07/27/18 10:58 Ur Tricyclics Screen Negative (Negative) 07/27/18 10:58 Ur Amphetamines Screen Negative (Negative) 07/27/18 10:58 U Benzodiazepines Scrn Negative (Negative) 07/27/18 10:58 Urine Cocaine Screen Positive (Negative) 07/27/18 10:58 Ur THC Screen Positive (Negative) 07/27/18 10:58 Documented by User: Cole Peterson 07/28/18 19:50
[2018-07-28] MEDS: VANCOMYCIN 1,000 MG in Normal Saline 250 ML 166.6666 MG IVPB (17:44)
[2018-07-28 19:11] VITALS: BP 121/77; PULSE 86; RESP 18; TEMP 36.8; O2SAT 98
--- NOTE | 2018-07-28 19:51 | PGE_ITS ---
Date of service: 07/27/18 Time of Service: 11:00 Assessment and Plan (1) Bacteremia: Current visit: Yes Status: Acute I consulted our nurse manager van for midline placement. We will restart his vancomycin once the midline is in place (2) IV drug abuse: Current visit: Yes Status: Acute chronic habitual user. questionable as to the use of clean needles given his bacteremia and his HCV status. Subjective Interval history since last seen: Patient was admitted by Dr. Nye as a direct admission last night at the request of Dr. Motta. Patient was recently hospitalized for Corynebacterium (microbacterium) bacteremia and was discharged on 07/20 with plan for outpatient daptomycin. See his discharge note from 07/20 for details. This was all arranged after he consulted [facility] infectious disease specialist, Dr. Breaux. The patient was seen by his PCP and reportedly is failing outpatient daptomycin and was hospitalized for iv vancomycin. According to Dr. Nye's reports the patient admits that he is still using injectable drugs. There is concern that he may have new organisms that may be resistant and therefore he was admitted and repeat blood cultures were drawn. Last night the patient had couple of iv's placed by nursing however he complained to them that they burned and he insisted that they take them out. When I inquired about this with him he became defensive and indicated that the nursing staff had not been able to draw back blood on the iv's and when they tried to infusion solution through them they burned so he figured that they must not been in the veins. When I asked him if he would be willing for nursing to try again and that I would try to get our best iv nurses to place a line he indicated that he is will to let them try but that he was not going to put up with multiple attempts. I indicated to him that we are trying to help him get the most appropriate antibiotic treatment but that we need his cooperation. He indicated that he did not like my atttitude and he stated that he did not care if he lived or and that he might just leave the hospital. Exam Narrative Exam Narrative: deferred as patient became belligerent and I decided it was best to let him calm down so nursing could approach him about placement of midline. Objective Objective Clinical Data: Vital Signs Temp 36.8 C 07/28/18 19:11 Pulse 86 07/28/18 19:11 Resp 18 07/28/18 19:11 BP 121/77 07/28/18 19:11 Pulse Ox 98 07/28/18 19:11 Intake & Output 07/27/18 07/28/18 07/28/18 23:59 11:59 23:59 Intake Total 1020 / 1020 740 / 740 480 / 480 Balance 1020 / 1020 740 / 740 480 / 480 Weight 57.5 kg Intake: IV 540 / 540 250 / 250 Oral 480 / 480 490 / 490 480 / 480 Other: Urine Color Straw Urine Appearance Clear Urine Odor None Comment Void x1 in the toilet. Voiding Methods Toilet Laboratory Results WBC 6.70 k/cumm (4.4-10.8) 07/27/18 06:25 RBC 5.01 m/cumm (4.50-6.00) 07/27/18 06:25 Hgb 15.0 g/dL (13.5-17.5) 07/27/18 06:25 Hct 44.3 % (40.0-50.0) 07/27/18 06:25 MCV 88.4 fL (80-95) 07/27/18 06:25 MCH 29.9 pg (27.0-33.0) 07/27/18 06:25 MCHC 33.9 g/dL (32.0-36.0) 07/27/18 06:25 RDW 13.6 % (11.8-14.1) 07/27/18 06:25 Plt Count 295 x1000/uL (130-400) 07/27/18 06:25 MPV 10.0 fL (8.0-11.0) 07/27/18 06:25 Immature Gran % 0.1 07/27/18 06:25 Neutrophils % 63.0 07/27/18 06:25 Lymphocytes % 23.3 07/27/18 06:25 Monocytes % 7.5 07/27/18 06:25 Eosinophils % 5.4 07/27/18 06:25 Basophils % 0.7 07/27/18 06:25 Absolute Neutrophils 4.22 k/cumm (1.2-6.7) 07/27/18 06:25 Absolute Lymphocytes 1.56 k/cumm (1.2-3.4) 07/27/18 06:25 Absolute Monocytes 0.50 k/cumm (0.11-0.7) 07/27/18 06:25 Absolute Eosinophils 0.36 k/cumm (0.0-0.7) 07/27/18 06:25 Absolute Basophils 0.05 k/cumm (0.0-0.2) 07/27/18 06:25 ESR 40 MM/HR (0-15) H 07/26/18 18:15 Sodium 141 mmol/L (136-145) 07/27/18 06:25 Potassium 4.0 mmol/L (3.5-5.1) 07/27/18 06:25 Chloride 104 mmol/L (98-107) 07/27/18 06:25 Carbon Dioxide 28.7 mmol/L (21.0-32.0) 07/27/18 06:25 Anion Gap 8.3 mmol/L (3-11) 07/27/18 06:25 BUN 8 mg/dL (7-18) 07/27/18 06:25 Creatinine 0.81 mg/dL (0.70-1.30) 07/27/18 06:25 Estimated GFR/1.73 m2 >= 60.00 (mL/min/1.73m2) 07/27/18 06:25 Glucose 96 mg/dL (70-100) 07/27/18 06:25 Calcium 9.0 mg/dL (8.5-10.1) 07/27/18 06:25 Total Bilirubin 0.6 mg/dL (0.2-1.0) 07/27/18 06:25 AST 92 U/L (15-37) H 07/27/18 06:25 ALT 162 U/L (12-78) H 07/27/18 06:25 Alkaline Phosphatase 125 U/L (46-116) H 07/27/18 06:25 C-Reactive Protein 2.37 mg/dL (0.0-0.3) H 07/26/18 18:15 Total Protein 7.5 g/dL (6.4-8.2) 07/27/18 06:25 Albumin 3.3 g/dL (3.4-5.0) L 07/27/18 06:25 Vancomycin Trough 11.5 ug/mL (10.0-20.0) 07/28/18 11:40 Urine Opiates Screen Negative (Negative) 07/27/18 10:58 Urine Methadone Screen Negative (Negative) 07/27/18 10:58 Ur Barbiturates Screen Negative (Negative) 07/27/18 10:58 Ur Tricyclics Screen Negative (Negative) 07/27/18 10:58 Ur Amphetamines Screen Negative (Negative) 07/27/18 10:58 U Benzodiazepines Scrn Negative (Negative) 07/27/18 10:58 Urine Cocaine Screen Positive (Negative) 07/27/18 10:58 Ur THC Screen Positive (Negative) 07/27/18 10:58
[2018-07-28] MEDS: Nicotine 21 MG/24 HR PATCH TD (20:47)
[2018-07-29] VITALS: BP 128/90; PULSE 101; RESP 18; TEMP 37.7; O2SAT 100
[2018-07-29] MEDS: Normal Saline Flush 10 ML SYR IVP ×4 (00:15→20:58)
[2018-07-29] MEDS: VANCOMYCIN 1,000 MG in Normal Saline 250 ML 166.6666 MG IVPB ×3 (00:56→13:52)
[2018-07-29] MEDS: Ibuprofen 600 MG TAB PO ×3 (06:43→23:52)
[2018-07-29 07:17] LABS: HCT 42.5 % (40.0-50.0); HGB 14.5 g/dL (13.5-17.5); Mean Corp. HGB Concentration 34.1 g/dL (32.0-36.0); Mean Platelet Volume 9.5 fL (8.0-11.0); Platelet Count 259 x1000/uL (130-400); RBC 4.83 m/cumm (4.50-6.00); RBC Distribution Width 13.8 % (11.8-14.1); White Blood Cell Count 8.41 k/cumm (4.4-10.8)
[2018-07-29 07:30] VITALS: BP 105/73; PULSE 92; RESP 18; TEMP 37.8; O2SAT 95
[2018-07-29 07:35] LABS: C-Reactive Protein 1.96 mg/dL (0.0-0.3)
[2018-07-29 08:59] LABS: ESR 48 MM/HR (0-15)
[2018-07-29] MEDS: Nicotine 21 MG/24 HR PATCH TD (09:46)
[2018-07-29 11:26] VITALS: BP 107/74; PULSE 78; RESP 20; TEMP 36.9; O2SAT 97
[2018-07-29 12:13] LABS: Vancomycin, Trough 20.8 ug/mL (10.0-20.0)
--- NOTE | 2018-07-29 13:27 | PDOC.CMPRO ---
- If Service Date Differs Date of service: 07/29/18 Time of Service: 13:27 Care Management Progress Note S/O: Kevin is lying in bed sleeping when this service writer advisor visits this morning. CM saw Kevin in the huang later in the morning as he was ambulating and stated that he was feeling alright. Unsure at this time as to length of need for IV antibiotics. A: 43 y/o male admitted 07/26/18 with Endocarditis P: ? length of stay for IV antibiotics. Kevin will return home once medically cleared. He will F/U with PCP and plan of care as prescribed. Kevin' friend will transport.
--- NOTE | 2018-07-29 15:18 | W.PM.PROGNOT ---
Date of service: 07/29/18 Time of Service: 15:20 Assessment and Plan (1) Bacteremia: Current visit: Yes Status: Acute Midline placed - On day # 3 of IV Vancomycin. Blood Cultures thus far remain negative. For potential SUMMER on 08/01. (2) IV drug abuse: Current visit: Yes Status: Acute Chronic habitual user. Also with history of HCV. (3) DVT prophylaxis: Current visit: Yes Status: Acute Start SC Lovenox. Subjective Interval history since last seen: 43 year old man direct admitted to the hospital at the request of Dr. Chon Motta. 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 He was recently hospitalized for Corynebacterium (microbacterium) bacteremia and was discharged on 07/20 with plan for outpatient daptomycin following consultation with [facility] infectious disease specialist, Dr. Breaux. The patient was seen by his PCP and reportedly failed outpatient daptomycin, with reported fevers, chills, and diaphoresis. He was referred for hospitalizion for iv vancomycin. The patient continues to have borderline temperatures, max of 37.8, and has had subjective fevers overnight. CRP has decreased some, but ESR has risen slightly. Blood Cultures continue to be without growth. The patient is tentatively scheduled for a SUMMER in 3 days. Exam Narrative Exam Narrative: General: Patient appears comfortable, AAOX3, NAD Neck: Supple CV: Regular, nontachycardic, S1S2, No rubs, murmurs, or gallops. Pulmonary: Clear to auscultation bilaterally, no crackles, wheezing, or rhonchi Abdomen: + Bowel Sounds, soft, nontender, nondistended Vascular: No lower extremity edema Neurologic: CN II-XII grossly intact. No focal deficits. Psych: Normal mood and affect. Objective Objective Clinical Data: Abnormal lab results 07/29/18 07/29/18 07/29/18 Range/Units 07:00 07:00 11:55 ESR 48 H (0-15) MM/HR C-Reactive Protein 1.96 H (0.0-0.3) mg/dL Vancomycin Trough 20.8 H* (10.0-20.0) ug/mL Vital Signs Temperature 36.9 C 07/29/18 11:26 Temperature Source Tympanic 07/29/18 11:26 Pulse 78 07/29/18 11:26 Pulse Rhythm Regular 07/29/18 08:42 Respiratory Rate 20 07/29/18 11:26 Respiratory Effort Non-Labored 07/29/18 08:42 Respiratory Depth Normal 07/29/18 08:42 Respiratory Pattern Normal 07/29/18 08:42 Blood Pressure 107/74 07/29/18 11:26 Pulse Oximetry 97 07/29/18 11:26 Oxygen Delivery Method Room Air 07/29/18 11:26 Oxygen Flow Rate 0 07/29/18 11:26 Pain Level 0 07/29/18 11:26 Comment 07/29/18 07:30 Intake & Output 07/28/18 07/29/18 07/29/18 23:59 11:59 23:59 Intake Total 740 / 740 1090 / 1090 240 / 240 Balance 740 / 740 1090 / 1090 240 / 240 Weight 57.6 kg Intake: IV 260 / 260 510 / 510 Oral 480 / 480 580 / 580 240 / 240 Other: Comment pt reports up ad juan to bathroom, no issues pt voiding independently in bathroom, not observed by RN Voiding Methods Toilet Toilet Laboratory Results WBC 8.41 k/cumm (4.4-10.8) 07/29/18 07:00 RBC 4.83 m/cumm (4.50-6.00) 07/29/18 07:00 Hgb 14.5 g/dL (13.5-17.5) 07/29/18 07:00 Hct 42.5 % (40.0-50.0) 07/29/18 07:00 MCV 88.0 fL (80-95) 07/29/18 07:00 MCH 30.0 pg (27.0-33.0) 07/29/18 07:00 MCHC 34.1 g/dL (32.0-36.0) 07/29/18 07:00 RDW 13.8 % (11.8-14.1) 07/29/18 07:00 Plt Count 259 x1000/uL (130-400) 07/29/18 07:00 MPV 9.5 fL (8.0-11.0) 07/29/18 07:00 Immature Gran % 0.1 07/27/18 06:25 Neutrophils % 63.0 07/27/18 06:25 Lymphocytes % 23.3 07/27/18 06:25 Monocytes % 7.5 07/27/18 06:25 Eosinophils % 5.4 07/27/18 06:25 Basophils % 0.7 07/27/18 06:25 Absolute Neutrophils 4.22 k/cumm (1.2-6.7) 07/27/18 06:25 Absolute Lymphocytes 1.56 k/cumm (1.2-3.4) 07/27/18 06:25 Absolute Monocytes 0.50 k/cumm (0.11-0.7) 07/27/18 06:25 Absolute Eosinophils 0.36 k/cumm (0.0-0.7) 07/27/18 06:25 Absolute Basophils 0.05 k/cumm (0.0-0.2) 07/27/18 06:25 ESR 48 MM/HR (0-15) H 07/29/18 07:00 Sodium 141 mmol/L (136-145) 07/27/18 06:25 Potassium 4.0 mmol/L (3.5-5.1) 07/27/18 06:25 Chloride 104 mmol/L (98-107) 07/27/18 06:25 Carbon Dioxide 28.7 mmol/L (21.0-32.0) 07/27/18 06:25 Anion Gap 8.3 mmol/L (3-11) 07/27/18 06:25 BUN 8 mg/dL (7-18) 07/27/18 06:25 Creatinine 0.81 mg/dL (0.70-1.30) 07/27/18 06:25 Estimated GFR/1.73 m2 >= 60.00 (mL/min/1.73m2) 07/27/18 06:25 Glucose 96 mg/dL (70-100) 07/27/18 06:25 Calcium 9.0 mg/dL (8.5-10.1) 07/27/18 06:25 Total Bilirubin 0.6 mg/dL (0.2-1.0) 07/27/18 06:25 AST 92 U/L (15-37) H 07/27/18 06:25 ALT 162 U/L (12-78) H 07/27/18 06:25 Alkaline Phosphatase 125 U/L (46-116) H 07/27/18 06:25 C-Reactive Protein 1.96 mg/dL (0.0-0.3) H 07/29/18 07:00 Total Protein 7.5 g/dL (6.4-8.2) 07/27/18 06:25 Albumin 3.3 g/dL (3.4-5.0) L 07/27/18 06:25 Vancomycin Trough 20.8 ug/mL (10.0-20.0) H* 07/29/18 11:55 Urine Opiates Screen Negative (Negative) 07/27/18 10:58 Urine Methadone Screen Negative (Negative) 07/27/18 10:58 Ur Barbiturates Screen Negative (Negative) 07/27/18 10:58 Ur Tricyclics Screen Negative (Negative) 07/27/18 10:58 Ur Amphetamines Screen Negative (Negative) 07/27/18 10:58 U Benzodiazepines Scrn Negative (Negative) 07/27/18 10:58 Urine Cocaine Screen Positive (Negative) 07/27/18 10:58 Ur THC Screen Positive (Negative) 07/27/18 10:58
[2018-07-29 16:08] VITALS: BP 115/76; PULSE 81; RESP 18; TEMP 37.1; O2SAT 98
[2018-07-29 19:53] VITALS: BP 119/76; PULSE 109; RESP 18; TEMP 36.7; O2SAT 100
[2018-07-29] MEDS: VANCOMYCIN 1,000 MG in Normal Saline 250 ML 166.666 MG IVPB (20:57)
[2018-07-29] MEDS: Normal Saline 500 ML IV (20:58)
[2018-07-30] VITALS (9 sets, daily range): BP systolic 99–125; BP diastolic 59–86; PULSE 78–89; RESP 17–20; TEMP 36.4–39.2; O2SAT 97–100
[2018-07-30] MEDS: Normal Saline Flush 10 ML SYR IVP ×3 (01:59→16:48)
[2018-07-30] MEDS: VANCOMYCIN 1,000 MG in Normal Saline 250 ML 167 MG IVPB (02:00)
[2018-07-30] MEDS: LORazepam 1 MG TAB PO ×2 (02:10→22:47)
[2018-07-30] MEDS: Ibuprofen 600 MG TAB PO ×3 (08:35→22:47)
[2018-07-30] MEDS: VANCOMYCIN 1,000 MG in Normal Saline 250 ML 166 MG IVPB (08:36)
[2018-07-30 08:39] LABS: Anion Gap 7.6 mmol/L (3-11); BUN 11 mg/dL (7-18); CO2 27.4 mmol/L (21.0-32.0); CREATININE 0.77 mg/dL (0.70-1.30); Chloride 106 mmol/L (98-107); Glucose 92 mg/dL (70-100); Sodium 141 mmol/L (136-145)
[2018-07-30 08:43] LABS: C-Reactive Protein 2.36 mg/dL (0.0-0.3)
[2018-07-30 08:49] LABS: Abs Immature Grans 0.02 k/cumm (0.0-0.09); Absolute Basophil Count 0.04 k/cumm (0.0-0.2); Absolute Eosinophil Count 0.47 k/cumm (0.0-0.7); Absolute Lymphocyte Count 1.37 k/cumm (1.2-3.4); Absolute Monocyte Count 0.64 k/cumm (0.11-0.7); Absolute Neutrophil Count 4.55 k/cumm (1.2-6.7); Basophils % 0.6; Eosinophils % 6.6; HCT 41.6 % (40.0-50.0); HGB 14.1 g/dL (13.5-17.5); Immature Grans % 0.3; Lymphocytes % 19.3; Mean Corp. HGB Concentration 33.9 g/dL (32.0-36.0); Mean Corpuscular Hemoglobin 29.9 pg (27.0-33.0); Mean Corpuscular Volume 88.3 fL (80-95); Neutrophils % 64.2; Platelet Count 240 x1000/uL (130-400); RBC 4.71 m/cumm (4.50-6.00); RBC Distribution Width 13.9 % (11.8-14.1); White Blood Cell Count 7.09 k/cumm (4.4-10.8)
[2018-07-30 09:04] LABS: ESR 48 MM/HR (0-15)
--- NOTE | 2018-07-30 11:06 | CMPROGNOTE_ITS ---
- If Service Date Differs Date of service: 07/30/18 Time of Service: 11:05 Care Management Progress Note S/O: Kevin is lying in bed sleeping when this caption writer visits this morning. He is scheduled for a SUMMER on Tuesday per MD report. He was febrile overnight and continues on IV antibiotics at this time. A: 43 y/o male admitted 07/26/18 with Endocarditis P: ? length of stay for IV antibiotics. Kevin will return home once medically cleared. He will F/U with PCP and plan of care as prescribed. Kevin' friend will transport.
[2018-07-30 14:18] LABS: Vancomycin, Trough 22.2 ug/mL (10.0-20.0)
[2018-07-30] MEDS: Nicotine 21 MG/24 HR PATCH TD (14:44)
--- NOTE | 2018-07-30 15:06 | NUR.NOTE ---
Nursing Note: 1500: in pt's room discussing education for SUMMER scheduled for Tuesday. informed pt of NPO status after midnight on 07/31. pt states I don't want them to save me if something goes wrong, there is no life after . RN reports to pt that he is a FULL CODE at this time. pt states I have talked to like 5 people about this, I don't want that. RN reviews with pt DNI DNR status; pt again states I don't want to be a full code. pt wants his HIPPA form updated and wants case management to do a advanced directive with him on Tuesday. CC [employer] RN notified to follow up with the MD.
--- NOTE | 2018-07-30 15:47 | W.PM.PROGNOT ---
Assessment and Plan (1) Bacteremia: Current visit: No Status: Acute Midline in place - On day # 4 of IV Vancomycin. 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 Current Blood Cultures from 07/18 and 07/26 remain negative. Repeat now given fevers overnight. For SUMMER on 08/01. (2) IV drug abuse: Current visit: No Status: Acute Chronic habitual user. Also with history of HCV. (3) DVT prophylaxis: Current visit: No Status: Acute SC Lovenox ordered but refused by patient. Discussed risks in detail with patient. He is aware and refusing. Subjective Interval history since last seen: 43 year old man direct admitted to the hospital at the request of Dr. Chon Motta for presumed failure of outpatient antibiotic therapy. 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 He was recently hospitalized for Corynebacterium (microbacterium) bacteremia and was discharged on 07/20 with plan for outpatient Daptomycin following consultation with [facility] infectious disease specialist, Dr. Breaux. The patient was seen by his PCP and reportedly failed outpatient daptomycin, with reported fevers, chills, and diaphoresis. He was referred for hospitalizion for IV Vancomycin. The patient continues to have fevers, max of 39.2 overnight, as well as subjective fevers and chills. CRP has increased from yesterday, and ESR remains elevated and unchanged. Blood Cultures continue to be without growth. The patient is tentatively scheduled for a SUMMER in 2 days. No other overnight events reported. Exam Narrative Exam Narrative: General: Patient appears comfortable, AAOX3, NAD Neck: Supple CV: Regular, nontachycardic, S1S2, No rubs, murmurs, or gallops. Pulmonary: Clear to auscultation bilaterally, no crackles, wheezing, or rhonchi Abdomen: + Bowel Sounds, soft, nontender, nondistended Vascular: No lower extremity edema Neurologic: CN II-XII grossly intact. No focal deficits. Psych: Normal mood and affect. Objective Objective Clinical Data: Abnormal lab results 07/30/18 07/30/18 07/30/18 Range/Units 08:07 08:07 13:45 ESR 48 H (0-15) MM/HR C-Reactive Protein 2.36 H (0.0-0.3) mg/dL Vancomycin Trough 22.2 H* (10.0-20.0) ug/mL Vital Signs Temperature 36.8 C 07/30/18 08:35 Temperature Source Skin 07/30/18 08:20 Pulse 78 07/30/18 08:20 Pulse Rhythm Irregular 07/30/18 08:06 Respiratory Rate 19 07/30/18 08:20 Respiratory Effort Non-Labored 07/30/18 08:06 Respiratory Depth Normal 07/30/18 08:06 Respiratory Pattern Normal 07/30/18 08:06 Blood Pressure 99/66 L 07/30/18 08:20 Pulse Oximetry 100 07/30/18 08:20 Oxygen Delivery Method Room Air 07/30/18 08:20 Oxygen Flow Rate 0 07/30/18 08:20 Pain Level 2 07/30/18 09:35 Comment 07/29/18 07:30 Intake & Output 07/29/18 07/30/18 07/30/18 23:59 11:59 23:59 Intake Total 1130.650 / 8763.837 6979 / 1790 240 / 240 Balance 1130.650 / 1327.012 8804 / 1790 240 / 240 Weight 57.9 kg Intake: IV 530.650 / 530.650 530 / 530 Oral 600 / 600 1260 / 1260 240 / 240 Other: Comment pt voiding independently in bathroom, not observed by RN pt voiding ad juan; urine not assessed at this time. pt denies GI/ issues Voiding Methods Toilet Toilet Laboratory Results WBC 7.09 k/cumm (4.4-10.8) 07/30/18 08:07 RBC 4.71 m/cumm (4.50-6.00) 07/30/18 08:07 Hgb 14.1 g/dL (13.5-17.5) 07/30/18 08:07 Hct 41.6 % (40.0-50.0) 07/30/18 08:07 MCV 88.3 fL (80-95) 07/30/18 08:07 MCH 29.9 pg (27.0-33.0) 07/30/18 08:07 MCHC 33.9 g/dL (32.0-36.0) 07/30/18 08:07 RDW 13.9 % (11.8-14.1) 07/30/18 08:07 Plt Count 240 x1000/uL (130-400) 07/30/18 08:07 MPV 10.0 fL (8.0-11.0) 07/30/18 08:07 Immature Gran % 0.3 07/30/18 08:07 Neutrophils % 64.2 07/30/18 08:07 Lymphocytes % 19.3 07/30/18 08:07 Monocytes % 9.0 07/30/18 08:07 Eosinophils % 6.6 07/30/18 08:07 Basophils % 0.6 07/30/18 08:07 Absolute Neutrophils 4.55 k/cumm (1.2-6.7) 07/30/18 08:07 Absolute Lymphocytes 1.37 k/cumm (1.2-3.4) 07/30/18 08:07 Absolute Monocytes 0.64 k/cumm (0.11-0.7) 07/30/18 08:07 Absolute Eosinophils 0.47 k/cumm (0.0-0.7) 07/30/18 08:07 Absolute Basophils 0.04 k/cumm (0.0-0.2) 07/30/18 08:07 ESR 48 MM/HR (0-15) H 07/30/18 08:07 Sodium 141 mmol/L (136-145) 07/30/18 08:07 Potassium 4.0 mmol/L (3.5-5.1) 07/30/18 08:07 Chloride 106 mmol/L (98-107) 07/30/18 08:07 Carbon Dioxide 27.4 mmol/L (21.0-32.0) 07/30/18 08:07 Anion Gap 7.6 mmol/L (3-11) 07/30/18 08:07 BUN 11 mg/dL (7-18) 07/30/18 08:07 Creatinine 0.77 mg/dL (0.70-1.30) 07/30/18 08:07 Estimated GFR/1.73 m2 >= 60.00 (mL/min/1.73m2) 07/30/18 08:07 Glucose 92 mg/dL (70-100) 07/30/18 08:07 Calcium 9.0 mg/dL (8.5-10.1) 07/30/18 08:07 Total Bilirubin 0.6 mg/dL (0.2-1.0) 07/27/18 06:25 AST 92 U/L (15-37) H 07/27/18 06:25 ALT 162 U/L (12-78) H 07/27/18 06:25 Alkaline Phosphatase 125 U/L (46-116) H 07/27/18 06:25 C-Reactive Protein 2.36 mg/dL (0.0-0.3) H 07/30/18 08:07 Total Protein 7.5 g/dL (6.4-8.2) 07/27/18 06:25 Albumin 3.3 g/dL (3.4-5.0) L 07/27/18 06:25 Vancomycin Trough 22.2 ug/mL (10.0-20.0) H* 07/30/18 13:45 Urine Opiates Screen Negative (Negative) 07/27/18 10:58 Urine Methadone Screen Negative (Negative) 07/27/18 10:58 Ur Barbiturates Screen Negative (Negative) 07/27/18 10:58 Ur Tricyclics Screen Negative (Negative) 07/27/18 10:58 Ur Amphetamines Screen Negative (Negative) 07/27/18 10:58 U Benzodiazepines Scrn Negative (Negative) 07/27/18 10:58 Urine Cocaine Screen Positive (Negative) 07/27/18 10:58 Ur THC Screen Positive (Negative) 07/27/18 10:58
[2018-07-30] MEDS: VANCOMYCIN 1,250 MG in Normal Saline 250 ML 166.6666 MG IVPB (16:51)
[2018-07-30] MEDS: Cyclobenzaprine 10 MG TAB 5 MG PO (16:56)
[2018-07-31] VITALS (7 sets, daily range): BP systolic 104–124; BP diastolic 69–84; PULSE 71–125; RESP 14–18; TEMP 35.8–37.2; O2SAT 96–100
[2018-07-31] MEDS: VANCOMYCIN 1,250 MG in Normal Saline 250 ML 167 MG IVPB ×2 (00:33→07:59)
[2018-07-31] MEDS: Normal Saline 500 ML 100 ML IV (00:33)
[2018-07-31] MEDS: Normal Saline Flush 10 ML SYR IVP ×3 (00:35→17:50)
[2018-07-31 07:27] LABS: Abs Immature Grans 0.02 k/cumm (0.0-0.09); Absolute Basophil Count 0.04 k/cumm (0.0-0.2); Absolute Eosinophil Count 0.53 k/cumm (0.0-0.7); Absolute Lymphocyte Count 1.81 k/cumm (1.2-3.4); Absolute Monocyte Count 0.64 k/cumm (0.11-0.7); Absolute Neutrophil Count 3.05 k/cumm (1.2-6.7); Basophils % 0.7; Eosinophils % 8.7; HCT 42.6 % (40.0-50.0); HGB 14.2 g/dL (13.5-17.5); Immature Grans % 0.3; Lymphocytes % 29.7; Mean Corp. HGB Concentration 33.3 g/dL (32.0-36.0); Mean Corpuscular Hemoglobin 29.9 pg (27.0-33.0); Mean Corpuscular Volume 89.7 fL (80-95); Mean Platelet Volume 9.6 fL (8.0-11.0); Monocytes % 10.5; Neutrophils % 50.1; Platelet Count 259 x1000/uL (130-400); RBC 4.75 m/cumm (4.50-6.00); RBC Distribution Width 13.8 % (11.8-14.1); White Blood Cell Count 6.09 k/cumm (4.4-10.8)
[2018-07-31 07:42] LABS: Anion Gap 12.6 mmol/L (3-11); BUN 11 mg/dL (7-18); CO2 22.4 mmol/L (21.0-32.0); CREATININE 0.82 mg/dL (0.70-1.30); Chloride 107 mmol/L (98-107); Glucose 92 mg/dL (70-100); Potassium 4.3 mmol/L (3.5-5.1); Sodium 142 mmol/L (136-145)
[2018-07-31] MEDS: Ibuprofen 600 MG TAB PO ×2 (08:00→19:04)
[2018-07-31] MEDS: Cyclobenzaprine 10 MG TAB 5 MG PO (08:00)
--- NOTE | 2018-07-31 09:00 | CMPROGNOTE_ITS ---
- If Service Date Differs Date of service: 07/31/18 Time of Service: 08:58 Care Management Progress Note S/O: Kevin is sitting up in bed eating breakfast when this database report writer visits. CM discusses advance directive with Kevin as he has requested to complete document. CM provided Kevin with an advance directive which he will work on today. Kevin will alert CM if assistance is needed with completion. A: 43 y/o male admitted 07/26/18 with Endocarditis P: ? length of stay for IV antibiotics. Kevin will return home once medically cleared. He will F/U with PCP and plan of care as prescribed. Kevin' friend will transport.
--- NOTE | 2018-07-31 15:30 | W.PM.PROGNOT ---
Date of service: 07/31/18 Time of Service: 15:30 Assessment and Plan (1) Bacteremia: Current visit: No Status: Acute Midline in place - On day # 5 of IV Vancomycin. 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 Current Blood Cultures from 07/18 and 07/26 remain negative. Repeat from 07/30 due to overnight fevers remain without growth as well. For SUMMER on 08/01. (2) IV drug abuse: Current visit: No Status: Acute Chronic habitual user. Also with history of HCV. (3) DVT prophylaxis: Current visit: No Status: Acute SC Lovenox ordered but refused by patient. Discussed risks in detail with patient. Subjective Interval history since last seen: 43 year old man direct admitted to the hospital at the request of Dr. Chon Motat for presumed failure of outpatient antibiotic therapy. 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 He was recently hospitalized for Corynebacterium (microbacterium) bacteremia and was discharged on 07/20 with plan for outpatient Daptomycin [place] [facility] [place], Dr. Breaux. The patient was seen by his PCP and reportedly failed outpatient daptomycin, with reported fevers, chills, and diaphoresis. He was referred for hospitalizion for IV Vancomycin. The patient continues to have fevers, max of 39.2 overnight 2 nights ago, as well as subjective fevers and chills, but has now remained afebrile for over 24 hours. CRP has increased as well, and ESR remains elevated and unchanged. Blood Cultures continue to be without growth. The patient is tentatively scheduled for a SUMMER tomorrow to evaluate for endocarditis. No other overnight events reported. Exam Narrative Exam Narrative: General: Patient appears comfortable, AAOX3, NAD Neck: Supple CV: Regular, nontachycardic, S1S2, No rubs, murmurs, or gallops. Pulmonary: Clear to auscultation bilaterally, no crackles, wheezing, or rhonchi Abdomen: + Bowel Sounds, soft, nontender, nondistended Vascular: No lower extremity edema Neurologic: CN II-XII grossly intact. No focal deficits. Psych: Normal mood and affect. Objective Objective Clinical Data: Abnormal lab results 07/31/18 Range/Units 07:10 Anion Gap 12.6 H (3-11) mmol/L Vital Signs Temperature 36.4 C L 07/31/18 11:20 Temperature Source Tympanic 07/31/18 11:20 Pulse 125 H 07/31/18 11:20 Pulse Rhythm Regular 07/31/18 07:34 Respiratory Rate 18 07/31/18 11:20 Respiratory Effort Non-Labored 07/31/18 07:34 Respiratory Depth Normal 07/31/18 07:34 Respiratory Pattern Normal 07/31/18 07:34 Blood Pressure 111/78 07/31/18 11:20 Pulse Oximetry 96 07/31/18 11:20 Oxygen Delivery Method Room Air 07/31/18 11:20 Oxygen Flow Rate 0 07/31/18 11:20 Pain Level 0 07/31/18 09:00 Comment 07/29/18 07:30 Intake & Output 07/30/18 07/31/18 07/31/18 23:59 11:59 23:59 Intake Total 1140.617 / 1038.718 2591 / 1200 750 / 750 Balance 1140.617 / 2923.065 8626 / 1200 750 / 750 Weight 61.5 kg Intake: IV 300.617 / 300.617 540 / 540 Oral 840 / 840 660 / 660 750 / 750 Other: Urine Color Yellow Comment pt voiding ad juan; urine not assessed at this time. pt denies GI/ issues Void x1 in the toilet. Voiding Methods Toilet Toilet Laboratory Results WBC 6.09 k/cumm (4.4-10.8) 07/31/18 07:10 RBC 4.75 m/cumm (4.50-6.00) 07/31/18 07:10 Hgb 14.2 g/dL (13.5-17.5) 07/31/18 07:10 Hct 42.6 % (40.0-50.0) 07/31/18 07:10 MCV 89.7 fL (80-95) 07/31/18 07:10 MCH 29.9 pg (27.0-33.0) 07/31/18 07:10 MCHC 33.3 g/dL (32.0-36.0) 07/31/18 07:10 RDW 13.8 % (11.8-14.1) 07/31/18 07:10 Plt Count 259 x1000/uL (130-400) 07/31/18 07:10 MPV 9.6 fL (8.0-11.0) 07/31/18 07:10 Immature Gran % 0.3 07/31/18 07:10 Neutrophils % 50.1 07/31/18 07:10 Lymphocytes % 29.7 07/31/18 07:10 Monocytes % 10.5 07/31/18 07:10 Eosinophils % 8.7 07/31/18 07:10 Basophils % 0.7 07/31/18 07:10 Absolute Neutrophils 3.05 k/cumm (1.2-6.7) 07/31/18 07:10 Absolute Lymphocytes 1.81 k/cumm (1.2-3.4) 07/31/18 07:10 Absolute Monocytes 0.64 k/cumm (0.11-0.7) 07/31/18 07:10 Absolute Eosinophils 0.53 k/cumm (0.0-0.7) 07/31/18 07:10 Absolute Basophils 0.04 k/cumm (0.0-0.2) 07/31/18 07:10 ESR 48 MM/HR (0-15) H 07/30/18 08:07 Sodium 142 mmol/L (136-145) 07/31/18 07:10 Potassium 4.3 mmol/L (3.5-5.1) 07/31/18 07:10 Chloride 107 mmol/L (98-107) 07/31/18 07:10 Carbon Dioxide 22.4 mmol/L (21.0-32.0) 07/31/18 07:10 Anion Gap 12.6 mmol/L (3-11) H 07/31/18 07:10 BUN 11 mg/dL (7-18) 07/31/18 07:10 Creatinine 0.82 mg/dL (0.70-1.30) 07/31/18 07:10 Estimated GFR/1.73 m2 >= 60.00 (mL/min/1.73m2) 07/31/18 07:10 Glucose 92 mg/dL (70-100) 07/31/18 07:10 Calcium 9.0 mg/dL (8.5-10.1) 07/31/18 07:10 Total Bilirubin 0.6 mg/dL (0.2-1.0) 07/27/18 06:25 AST 92 U/L (15-37) H 07/27/18 06:25 ALT 162 U/L (12-78) H 07/27/18 06:25 Alkaline Phosphatase 125 U/L (46-116) H 07/27/18 06:25 C-Reactive Protein 2.36 mg/dL (0.0-0.3) H 07/30/18 08:07 Total Protein 7.5 g/dL (6.4-8.2) 07/27/18 06:25 Albumin 3.3 g/dL (3.4-5.0) L 07/27/18 06:25 Vancomycin Trough 22.2 ug/mL (10.0-20.0) H* 07/30/18 13:45 Urine Opiates Screen Negative (Negative) 07/27/18 10:58 Urine Methadone Screen Negative (Negative) 07/27/18 10:58 Ur Barbiturates Screen Negative (Negative) 07/27/18 10:58 Ur Tricyclics Screen Negative (Negative) 07/27/18 10:58 Ur Amphetamines Screen Negative (Negative) 07/27/18 10:58 U Benzodiazepines Scrn Negative (Negative) 07/27/18 10:58 Urine Cocaine Screen Positive (Negative) 07/27/18 10:58 Ur THC Screen Positive (Negative) 07/27/18 10:58
--- NOTE | 2018-07-31 15:33 | PGE_ITS ---
Date of service: 07/31/18 Time of Service: 15:30 Assessment and Plan (1) Bacteremia: Current visit: No Status: Acute Midline in place - On day # 5 of IV Vancomycin. 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 Current Blood Cultures from 07/18 and 07/26 remain negative. Repeat from 07/30 due to overnight fevers remain without growth as well. For SUMMER on 08/01. (2) IV drug abuse: Current visit: No Status: Acute Chronic habitual user. Also with history of HCV. (3) DVT prophylaxis: Current visit: No Status: Acute SC Lovenox ordered but refused by patient. Discussed risks in detail with patient. Subjective Interval history since last seen: 43 year old man direct admitted to the hospital at the request of Dr. Chno Motta for presumed failure of outpatient antibiotic therapy. 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 He was recently hospitalized for Corynebacterium (microbacterium) bacteremia and was discharged on 07/20 with plan for outpatient Daptomycin following consultation with [facility] [place] infectious disease specialist, Dr. Breaux. The patient was seen by his PCP and reportedly failed outpatient daptomycin, with reported fevers, chills, and diaphoresis. He was referred for hospitalizion for IV Vancomycin. The patient continues to have fevers, max of 39.2 overnight 2 nights ago, as well as subjective fevers and chills, but has now remained afebrile for over 24 hours. CRP has increased as well, and ESR remains elevated and unchanged. Blood Cultures continue to be without growth. The patient is tentatively scheduled for a SUMMER tomorrow to evaluate for endocarditis. No other overnight events reported. Exam Narrative Exam Narrative: General: Patient appears comfortable, AAOX3, NAD Neck: Supple CV: Regular, nontachycardic, S1S2, No rubs, murmurs, or gallops. Pulmonary: Clear to auscultation bilaterally, no crackles, wheezing, or rhonchi Abdomen: + Bowel Sounds, soft, nontender, nondistended Vascular: No lower extremity edema Neurologic: CN II-XII grossly intact. No focal deficits. Psych: Normal mood and affect. Objective Objective Clinical Data: Abnormal lab results 07/31/18 Range/Units 07:10 Anion Gap 12.6 H (3-11) mmol/L Vital Signs Temperature 36.4 C L 07/31/18 11:20 Temperature Source Tympanic 07/31/18 11:20 Pulse 125 H 07/31/18 11:20 Pulse Rhythm Regular 07/31/18 07:34 Respiratory Rate 18 07/31/18 11:20 Respiratory Effort Non-Labored 07/31/18 07:34 Respiratory Depth Normal 07/31/18 07:34 Respiratory Pattern Normal 07/31/18 07:34 Blood Pressure 111/78 07/31/18 11:20 Pulse Oximetry 96 07/31/18 11:20 Oxygen Delivery Method Room Air 07/31/18 11:20 Oxygen Flow Rate 0 07/31/18 11:20 Pain Level 0 07/31/18 09:00 Comment 07/29/18 07:30 Intake & Output 07/30/18 07/31/18 07/31/18 23:59 11:59 23:59 Intake Total 1140.617 / 5779.756 0083 / 1200 750 / 750 Balance 1140.617 / 8884.386 3231 / 1200 750 / 750 Weight 61.5 kg Intake: IV 300.617 / 300.617 540 / 540 Oral 840 / 840 660 / 660 750 / 750 Other: Urine Color Yellow Comment pt voiding ad juan; urine not assessed at this time. pt denies GI/ issues Void x1 in the toilet. Voiding Methods Toilet Toilet Laboratory Results WBC 6.09 k/cumm (4.4-10.8) 07/31/18 07:10 RBC 4.75 m/cumm (4.50-6.00) 07/31/18 07:10 Hgb 14.2 g/dL (13.5-17.5) 07/31/18 07:10 Hct 42.6 % (40.0-50.0) 07/31/18 07:10 MCV 89.7 fL (80-95) 07/31/18 07:10 MCH 29.9 pg (27.0-33.0) 07/31/18 07:10 MCHC 33.3 g/dL (32.0-36.0) 07/31/18 07:10 RDW 13.8 % (11.8-14.1) 07/31/18 07:10 Plt Count 259 x1000/uL (130-400) 07/31/18 07:10 MPV 9.6 fL (8.0-11.0) 07/31/18 07:10 Immature Gran % 0.3 07/31/18 07:10 Neutrophils % 50.1 07/31/18 07:10 Lymphocytes % 29.7 07/31/18 07:10 Monocytes % 10.5 07/31/18 07:10 Eosinophils % 8.7 07/31/18 07:10 Basophils % 0.7 07/31/18 07:10 Absolute Neutrophils 3.05 k/cumm (1.2-6.7) 07/31/18 07:10 Absolute Lymphocytes 1.81 k/cumm (1.2-3.4) 07/31/18 07:10 Absolute Monocytes 0.64 k/cumm (0.11-0.7) 07/31/18 07:10 Absolute Eosinophils 0.53 k/cumm (0.0-0.7) 07/31/18 07:10 Absolute Basophils 0.04 k/cumm (0.0-0.2) 07/31/18 07:10 ESR 48 MM/HR (0-15) H 07/30/18 08:07 Sodium 142 mmol/L (136-145) 07/31/18 07:10 Potassium 4.3 mmol/L (3.5-5.1) 07/31/18 07:10 Chloride 107 mmol/L (98-107) 07/31/18 07:10 Carbon Dioxide 22.4 mmol/L (21.0-32.0) 07/31/18 07:10 Anion Gap 12.6 mmol/L (3-11) H 07/31/18 07:10 BUN 11 mg/dL (7-18) 07/31/18 07:10 Creatinine 0.82 mg/dL (0.70-1.30) 07/31/18 07:10 Estimated GFR/1.73 m2 >= 60.00 (mL/min/1.73m2) 07/31/18 07:10 Glucose 92 mg/dL (70-100) 07/31/18 07:10 Calcium 9.0 mg/dL (8.5-10.1) 07/31/18 07:10 Total Bilirubin 0.6 mg/dL (0.2-1.0) 07/27/18 06:25 AST 92 U/L (15-37) H 07/27/18 06:25 ALT 162 U/L (12-78) H 07/27/18 06:25 Alkaline Phosphatase 125 U/L (46-116) H 07/27/18 06:25 C-Reactive Protein 2.36 mg/dL (0.0-0.3) H 07/30/18 08:07 Total Protein 7.5 g/dL (6.4-8.2) 07/27/18 06:25 Albumin 3.3 g/dL (3.4-5.0) L 07/27/18 06:25 Vancomycin Trough 22.2 ug/mL (10.0-20.0) H* 07/30/18 13:45 Urine Opiates Screen Negative (Negative) 07/27/18 10:58 Urine Methadone Screen Negative (Negative) 07/27/18 10:58 Ur Barbiturates Screen Negative (Negative) 07/27/18 10:58 Ur Tricyclics Screen Negative (Negative) 07/27/18 10:58 Ur Amphetamines Screen Negative (Negative) 07/27/18 10:58 U Benzodiazepines Scrn Negative (Negative) 07/27/18 10:58 Urine Cocaine Screen Positive (Negative) 07/27/18 10:58 Ur THC Screen Positive (Negative) 07/27/18 10:58
[2018-07-31 16:06] LABS: Vancomycin, Trough 20.6 ug/mL (10.0-20.0)
[2018-07-31] MEDS: VANCOMYCIN 1,000 MG in Normal Saline 250 ML 166.667 MG IVPB (17:50)
[2018-07-31] MEDS: Nicotine 21 MG/24 HR PATCH TD (20:21)
[2018-08-01] MEDS: VANCOMYCIN 1,000 MG in Normal Saline 250 ML 166.667 MG IVPB ×2 (01:53→19:40)
[2018-08-01] MEDS: Normal Saline 500 ML 100 ML IV (01:53)
[2018-08-01] MEDS: Normal Saline Flush 10 ML SYR IVP (01:53)
[2018-08-01 04:48] VITALS: BP 104/69; PULSE 50; RESP 16; TEMP 35.8; O2SAT 100
[2018-08-01 07:29] LABS: Abs Immature Grans 0.02 k/cumm (0.0-0.09); Absolute Basophil Count 0.04 k/cumm (0.0-0.2); Absolute Eosinophil Count 0.46 k/cumm (0.0-0.7); Absolute Lymphocyte Count 2.05 k/cumm (1.2-3.4); Absolute Monocyte Count 0.55 k/cumm (0.11-0.7); Absolute Neutrophil Count 2.56 k/cumm (1.2-6.7); Basophils % 0.7; Eosinophils % 8.1; HCT 38.8 % (40.0-50.0); Immature Grans % 0.4; Lymphocytes % 36.1; Mean Corp. HGB Concentration 33.5 g/dL (32.0-36.0); Mean Corpuscular Hemoglobin 29.7 pg (27.0-33.0); Mean Corpuscular Volume 88.8 fL (80-95); Mean Platelet Volume 9.7 fL (8.0-11.0); Monocytes % 9.7; Platelet Count 243 x1000/uL (130-400); RBC 4.37 m/cumm (4.50-6.00); RBC Distribution Width 13.5 % (11.8-14.1); White Blood Cell Count 5.68 k/cumm (4.4-10.8)
[2018-08-01 07:35] VITALS: O2SAT 95
[2018-08-01 07:47] LABS: BUN 14 mg/dL (7-18); CREATININE 0.72 mg/dL (0.70-1.30); Calcium 8.9 mg/dL (8.5-10.1); Chloride 106 mmol/L (98-107); Glucose 85 mg/dL (70-100); Sodium 140 mmol/L (136-145)
[2018-08-01 08:15] VITALS: BP 92/56; PULSE 66; RESP 15; TEMP 36; O2SAT 98
--- NOTE | 2018-08-01 10:30 | MERGE_ITS ---
*[facility]* *[facility]* [address] [place] [address] Date of study: 08/01/2018 Transesophageal Echocardiography 2D, spectral Doppler, and color Doppler *STUDY CONCLUSIONS* Impressions: No evidence of endocarditis on left sided valves. No significant TR/AR. Summary: 1. Left ventricle: Systolic function was normal. The estimated ejection fraction was 50-55%. 2. Mitral valve: There was mild regurgitation. 3. Left atrium: No evidence of thrombus in the atrial cavity or appendage. 4. Atrial septum: No defect or patent foramen ovale was identified. *PATIENT PRESENTATION* Height: 165.1cm ((65in) ) S/D Pressure: Weight: 59.4kg ((130.7lb) ) BSA: 1.65m^2 Natan Munroe Michael PERFORMING Unknown PERFORMING [facility] [employer] MA[employer] Olga Lidia Lao *PROCEDURE DATA* Procedure information: This study was interpreted by [facility]. Pertinent images and digital data are archived for permanent storage and are available for subsequent review. Study status: Routine. Diagnostic transesophageal echocardiography. 2D, spectral Doppler, and color Doppler. Consent: The risks, benefits, and alternatives to the procedure were explained to the patient and consent was verbally obtained. Barriers to education: No barriers to education identified. Initial setup. The patient was brought to the laboratory in the fasting state. Surface ECG leads, blood pressure measurements, and pulse oximetric signals were monitored. Sedation. Moderate sedation was administered . A Transesophageal echocardiogram was performed. Topical anesthesia was obtained using viscous lidocaine. Images were obtained using an [employer] SC 2000 cardiac ultrasound machine. The transesophageal probe was removed. Study completion: The patient tolerated the procedure well. There was no blood loss or specimens removed during the procedure. There were no complications. 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 The estimated ejection fraction was 50-55%. Aortic valve: Structurally normal valve. Trileaflet. Cusp separation was normal. No evidence of vegetation. Doppler: There was no significant regurgitation. Aorta: Aortic root: The aortic root was normal in size. Ascending aorta: The ascending aorta was normal in size. Mitral valve: Structurally normal valve. Leaflet separation was normal. No evidence of vegetation. Doppler: There was mild regurgitation. Left atrium: The atrium was normal in size. No evidence of thrombus in the atrial cavity or appendage. Atrial septum: No defect or patent foramen ovale was identified. Pulmonic valve: Doppler: There was no significant regurgitation. Tricuspid valve: Doppler: There was no significant regurgitation. I have personally reviewed the images and have reviewed and edited the reported findings. Electronically signed by Natan Victoria MD 08/01/2018 16:35
[2018-08-01] MEDS: Lactated Ringers 1,000 ML 1000 ML IV (10:47)
[2018-08-01] MEDS: Ibuprofen 600 MG TAB PO ×2 (11:50→23:40)
[2018-08-01] MEDS: VANCOMYCIN 1,000 MG in Normal Saline 250 ML 166 MG IVPB (11:51)
--- NOTE | 2018-08-01 15:26 | PDOC.CMPRO ---
Care Management Progress Note S/O: GUERRERO met with and Kevin at the bedside. Per MD, he will continue to consult ID at [facility] [place] as results become available to inform discharge planning. CM provided resources to Kevin including [facility] referral, [facility] for housing, [facility] and Smoking Cessation as well as [facility] and resources as Kevin shared he no longer wants to return home to his prior living situation. CM reviewed community based supports and agreed to fax referrals to [facility] and [facility] for community based follow up. A: 43 year old male admitted to [facility] 07/26/18 for Endocarditis P: Plan remains undetermined at this time. CM provided resources and referrlas for follow up, and will continue to follow.
--- NOTE | 2018-08-01 15:29 | CMPROGNOTE_ITS ---
Care Management Progress Note S/O: GUERRERO met with and Kevin at the bedside. Per MD, he will continue to consult ID at [facility] [place] as results become available to inform discharge planning. CM provided resources to Kevin including [facility] referral, [facility] for housing, [facility] and Smoking Cessation as well as [employer] [facility] and resources as Kevin shared he no longer wants to return home to his prior living situation. CM reviewed community based supports and agreed to fax referrals to [facility] and [facility] for community based follow up. A: 43 year old male admitted to [facility] 07/26/18 for Endocarditis P: Plan remains undetermined at this time. CM provided resources and referrlas for follow up, and will continue to follow.
[2018-08-01 16:12] VITALS: BP 128/91; PULSE 82; RESP 18; TEMP 36.7; O2SAT 100
[2018-08-01] MEDS: Cyclobenzaprine 10 MG TAB 5 MG PO (16:50)
--- NOTE | 2018-08-01 17:34 | W.PM.PROGNOT ---
Date of service: 08/01/18 Time of Service: 17:34 Assessment and Plan (1) Bacteremia: Current visit: No Status: Acute Midline in place - On day # 6 of IV Vancomycin. 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 Current Blood Cultures from 07/18 and 07/26 remain negative. Repeat from 07/30 due to overnight fevers remain without growth as well. SUMMER 08/[address] Imaging to ensure lack of source, followed by discussion with ID pending results. (2) IV drug abuse: Current visit: No Status: Acute Chronic habitual user. Also with history of HCV. (3) DVT prophylaxis: Current visit: No Status: Acute SC Lovenox ordered but refused by patient. Discussed risks in detail with patient. Subjective Interval history since last seen: 43 year old man direct admitted to the hospital at the request of Dr. Chon Motta for presumed failure of outpatient antibiotic therapy. 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 He was recently hospitalized for Corynebacterium (microbacterium) bacteremia and was discharged on 07/20 with plan for outpatient Daptomycin [place] [facility], Dr. Breaux. The patient was seen by his PCP and reportedly failed outpatient daptomycin, with reported fevers, chills, and diaphoresis. He was referred for hospitalizion for IV Vancomycin. The patient continued to have fevers, max of 39.2 overnight 3 nights ago, as well as subjective fevers and chills, but has now remained afebrile for over 48 hours. CRP has increased as well, and ESR remains elevated and unchanged. Blood Cultures continue to be without growth. SUMMER performed and negative for endocarditis. No other overnight events reported. Exam Narrative Exam Narrative: General: Patient appears comfortable, AAOX3, NAD Neck: Supple CV: Regular, nontachycardic, S1S2, No rubs, murmurs, or gallops. Pulmonary: Clear to auscultation bilaterally, no crackles, wheezing, or rhonchi Abdomen: + Bowel Sounds, soft, nontender, nondistended Vascular: No lower extremity edema Psych: Normal mood and affect. Objective Objective Clinical Data: Abnormal lab results 08/01/18 Range/Units 07:10 RBC 4.37 L (4.50-6.00) m/cumm Hgb 13.0 L (13.5-17.5) g/dL Hct 38.8 L (40.0-50.0) % Vital Signs Temperature 36.7 C 08/01/18 16:12 Temperature Source Tympanic 08/01/18 16:12 Pulse 82 08/01/18 16:12 Pulse Rhythm Regular 08/01/18 08:30 Respiratory Rate 18 08/01/18 16:12 Respiratory Effort Non-Labored 08/01/18 08:30 Respiratory Depth Normal 08/01/18 08:30 Respiratory Pattern Normal 08/01/18 08:30 Blood Pressure 128/91 H 08/01/18 16:12 Pulse Oximetry 100 08/01/18 16:12 Oxygen Delivery Method Room Air 08/01/18 16:12 Oxygen Flow Rate 0 08/01/18 16:12 Pain Level 1 07/31/18 19:39 Comment 07/29/18 07:30 Intake & Output 07/31/18 08/01/18 08/01/18 23:59 11:59 23:59 Intake Total 1830 / 1830 606.667 / 606.667 370 / 370 Balance 1830 / 1830 606.667 / 606.667 370 / 370 Weight 59.5 kg Intake: IV 606.667 / 606.667 10 Oral 1810 / 1810 360 / 360 Other: Comment Void x3 in the toilet. voiding w/o difficulties Voiding Methods Toilet Toilet Laboratory Results WBC 5.68 k/cumm (4.4-10.8) 08/01/18 07:10 RBC 4.37 m/cumm (4.50-6.00) L 08/01/18 07:10 Hgb 13.0 g/dL (13.5-17.5) L 08/01/18 07:10 Hct 38.8 % (40.0-50.0) L 08/01/18 07:10 MCV 88.8 fL (80-95) 08/01/18 07:10 MCH 29.7 pg (27.0-33.0) 08/01/18 07:10 MCHC 33.5 g/dL (32.0-36.0) 08/01/18 07:10 RDW 13.5 % (11.8-14.1) 08/01/18 07:10 Plt Count 243 x1000/uL (130-400) 08/01/18 07:10 MPV 9.7 fL (8.0-11.0) 08/01/18 07:10 Immature Gran % 0.4 08/01/18 07:10 Neutrophils % 45.0 08/01/18 07:10 Lymphocytes % 36.1 08/01/18 07:10 Monocytes % 9.7 08/01/18 07:10 Eosinophils % 8.1 08/01/18 07:10 Basophils % 0.7 08/01/18 07:10 Absolute Neutrophils 2.56 k/cumm (1.2-6.7) 08/01/18 07:10 Absolute Lymphocytes 2.05 k/cumm (1.2-3.4) 08/01/18 07:10 Absolute Monocytes 0.55 k/cumm (0.11-0.7) 08/01/18 07:10 Absolute Eosinophils 0.46 k/cumm (0.0-0.7) 08/01/18 07:10 Absolute Basophils 0.04 k/cumm (0.0-0.2) 08/01/18 07:10 ESR 48 MM/HR (0-15) H 07/30/18 08:07 Sodium 140 mmol/L (136-145) 08/01/18 07:10 Potassium 4.0 mmol/L (3.5-5.1) 08/01/18 07:10 Chloride 106 mmol/L (98-107) 08/01/18 07:10 Carbon Dioxide 26.0 mmol/L (21.0-32.0) 08/01/18 07:10 Anion Gap 8.0 mmol/L (3-11) 08/01/18 07:10 BUN 14 mg/dL (7-18) 08/01/18 07:10 Creatinine 0.72 mg/dL (0.70-1.30) 08/01/18 07:10 Estimated GFR/1.73 m2 >= 60.00 (mL/min/1.73m2) 08/01/18 07:10 Glucose 85 mg/dL (70-100) 08/01/18 07:10 Calcium 8.9 mg/dL (8.5-10.1) 08/01/18 07:10 Total Bilirubin 0.6 mg/dL (0.2-1.0) 07/27/18 06:25 AST 92 U/L (15-37) H 07/27/18 06:25 ALT 162 U/L (12-78) H 07/27/18 06:25 Alkaline Phosphatase 125 U/L (46-116) H 07/27/18 06:25 C-Reactive Protein 2.36 mg/dL (0.0-0.3) H 07/30/18 08:07 Total Protein 7.5 g/dL (6.4-8.2) 07/27/18 06:25 Albumin 3.3 g/dL (3.4-5.0) L 07/27/18 06:25 Vancomycin Trough 20.6 ug/mL (10.0-20.0) H* 07/31/18 15:37 Urine Opiates Screen Negative (Negative) 07/27/18 10:58 Urine Methadone Screen Negative (Negative) 07/27/18 10:58 Ur Barbiturates Screen Negative (Negative) 07/27/18 10:58 Ur Tricyclics Screen Negative (Negative) 07/27/18 10:58 Ur Amphetamines Screen Negative (Negative) 07/27/18 10:58 U Benzodiazepines Scrn Negative (Negative) 07/27/18 10:58 Urine Cocaine Screen Positive (Negative) 07/27/18 10:58 Ur THC Screen Positive (Negative) 07/27/18 10:58
[2018-08-01] MEDS: Nicotine 21 MG/24 HR PATCH TD (19:40)
[2018-08-01 23:28] VITALS: BP 117/76; PULSE 80; RESP 18; TEMP 36.9; O2SAT 99
[2018-08-02] MEDS: Cyclobenzaprine 10 MG TAB 5 MG PO (01:19)
[2018-08-02 03:47] VITALS: BP 111/76; PULSE 82; RESP 16; TEMP 36; O2SAT 97
[2018-08-02] MEDS: Normal Saline 500 ML 167 ML IV (04:35)
[2018-08-02] MEDS: VANCOMYCIN 1,000 MG in Normal Saline 250 ML 167 MG IVPB ×3 (04:35→20:05)
[2018-08-02 07:20] VITALS: BP 114/74; PULSE 62; RESP 16; TEMP 36.6; O2SAT 96
[2018-08-02 07:31] LABS: Abs Immature Grans 0.03 k/cumm (0.0-0.09); Absolute Basophil Count 0.03 k/cumm (0.0-0.2); Absolute Eosinophil Count 0.55 k/cumm (0.0-0.7); Absolute Lymphocyte Count 2.08 k/cumm (1.2-3.4); Absolute Monocyte Count 0.53 k/cumm (0.11-0.7); Basophils % 0.5; Eosinophils % 9.3; HCT 37.2 % (40.0-50.0); HGB 12.4 g/dL (13.5-17.5); Immature Grans % 0.5; Lymphocytes % 35.1; Mean Corp. HGB Concentration 33.3 g/dL (32.0-36.0); Mean Corpuscular Hemoglobin 29.4 pg (27.0-33.0); Mean Corpuscular Volume 88.2 fL (80-95); Mean Platelet Volume 9.6 fL (8.0-11.0); Neutrophils % 45.6; Platelet Count 244 x1000/uL (130-400); RBC 4.22 m/cumm (4.50-6.00); RBC Distribution Width 13.1 % (11.8-14.1); White Blood Cell Count 5.92 k/cumm (4.4-10.8)
[2018-08-02 07:39] LABS: Anion Gap 8.3 mmol/L (3-11); BUN 16 mg/dL (7-18); CO2 27.7 mmol/L (21.0-32.0); CREATININE 0.87 mg/dL (0.70-1.30); Calcium 8.8 mg/dL (8.5-10.1); Chloride 103 mmol/L (98-107); Glucose 86 mg/dL (70-100); Potassium 3.8 mmol/L (3.5-5.1); Sodium 139 mmol/L (136-145)
--- NOTE | 2018-08-02 08:00 | DI.CT_ITS ---
SYMPTOM/DIAGNOSIS: BACTEREMIA, UNKNOWN SOURCE CT CHEST, ABDOMEN AND PELVIS: The study was carried out with intravenous injection of 100 cc Omnipaque 350 and oral ingestion of dilute Omnipaque. The lungs are free of infiltrate. No mass is identified. There is no pleural effusion. The cardiovascular structures appear intact. There is no evidence of hilar or mediastinal adenopathy. The heart is not enlarged. There is no pericardial effusion. SUMMARY: No acute abnormality is demonstrated in the chest. CT ABDOMEN AND PELVIS: The study was carried out according to the usual protocol with an intravenous injection of 100 cc Omnipaque 350 and oral ingestion of dilute Omnipaque. There is hepatosplenomegaly. The gallbladder is somewhat dilated. There is no evidence of gallstones or biliary obstruction. The pancreas is intact. The kidneys are unremarkable. The adrenals are normal. There is no evidence of bowel obstruction. The appendix is normal. There is a large quantity of fecal material and scattered gas throughout the colon consistent with constipation. The bladder is unremarkable. The reproductive organs as visualized are unremarkable. There is no evidence of free air or free fluid in the intraperitoneal space. There is no evidence of an aortic aneurysm. There are mild degenerative changes involving the spine. There is no evidence of a localized are of bony sclerosis, osteolysis or expansion. SUMMARY: Hepatosplenomegaly is demonstrated. No acute abnormality is seen and there is evidence of constipation.
[2018-08-02] MEDS: Omnipaque 350 MG/ML 100 ML BTL IJ (10:58)
[2018-08-02 11:25] VITALS: BP 120/85; PULSE 85; RESP 18; TEMP 36.7; O2SAT 99
[2018-08-02 11:54] LABS: Vancomycin, Trough 19.6 ug/mL (10.0-20.0)
--- NOTE | 2018-08-02 13:49 | PDOC.CMPRO ---
- If Service Date Differs Date of service: 08/02/18 Time of Service: 13:49 Care Management Progress Note S/O: Kevin is ambulating in the halls when this report writer checks in with him today, he is pleasant throughout discussion. Kevin states he is doing okay today. He is scheduled for a chest/abdomen/pelvis CT today. No change in current plan at this time. A: 43 year old male admitted to [facility] 07/26/18 for Endocarditis P: Plan remains undetermined at this time. CM provided resources and referrals for follow up, and will continue to follow.
--- NOTE | 2018-08-02 13:54 | CMPROGNOTE_ITS ---
- If Service Date Differs Date of service: 08/02/18 Time of Service: 13:49 Care Management Progress Note S/O: Kevin is ambulating in the halls when this expert medical writer checks in with him today , he is pleasant throughout discussion. Kevin states he is doing okay today. He is scheduled for a chest/abdomen/pelvis CT today. No change in current plan at this time. A: 43 year old male admitted to [facility] 07/26/18 for Endocarditis P: Plan remains undetermined at this time. CM provided resources and referrals for follow up, and will continue to follow.
[2018-08-02] MEDS: Ibuprofen 600 MG TAB PO ×2 (14:48→21:18)
--- NOTE | 2018-08-02 15:20 | NUR.NOTE ---
Nursing Note: Took pt down to [facility] per nurses request. pt withdrew chappell and then handed chappell to the boyfriend of room 217.
[2018-08-02 15:57] VITALS: BP 112/69; PULSE 83; RESP 18; TEMP 36.7; O2SAT 97
--- NOTE | 2018-08-02 16:03 | PGE_ITS ---
Date of service: 08/02/18 Time of Service: 16:03 Assessment and Plan (1) Bacteremia: Current visit: No Status: Acute Midline in place - On day # 7 of IV Vancomycin. 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 Current Blood Cultures from 07/18 and 07/26 remain negative. Repeat from 07/30 due to overnight fevers remain without growth as well. SUMMER 08/[address] Imaging without source. Plan on discussion with ID for planned, probable 6 weeks of antibiotic therapy. (2) IV drug abuse: Current visit: No Status: Acute Chronic habitual user. Also with history of HCV. (3) DVT prophylaxis: Current visit: No Status: Acute SC Lovenox ordered but refused by patient previously. Discussed risks in detail with patient. Subjective Interval history since last seen: 43 year old man direct admitted to the hospital at the request of Dr. Chon Motta for presumed failure of outpatient antibiotic therapy. 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 He was recently hospitalized for Corynebacterium (microbacterium) bacteremia and was discharged on 07/20 with plan for outpatient Daptomycin following [place] [facility] [place], Dr. Breaux. The patient was seen by his PCP and reportedly failed outpatient daptomycin, with reported fevers, chills, and diaphoresis. He was referred for hospitalizion for IV Vancomycin. The patient continued to have fevers, max of 39.2 overnight a few nights ago, as well as subjective fevers and chills, but has now remained afebrile for over 72 hours. CRP had increased as well, and ESR remained elevated and unchanged. Blood Cultures continue to be without growth. SUMMER performed and negative for endocarditis. Patient underwent further work-up with CT of the chest, abdomen, and pelvis without a specific source identified. No other overnight events reported. Exam Narrative Exam Narrative: General: Patient appears comfortable, AAOX3, NAD Neck: Supple CV: Regular, nontachycardic, S1S2, No rubs, murmurs, or gallops. Pulmonary: Clear to auscultation bilaterally, no crackles, wheezing, or rhonchi Abdomen: + Bowel Sounds, soft, nontender, nondistended Vascular: No lower extremity edema Psych: Normal mood and affect. Objective Objective Clinical Data: Abnormal lab results 08/02/18 Range/Units 06:38 RBC 4.22 L (4.50-6.00) m/cumm Hgb 12.4 L (13.5-17.5) g/dL Hct 37.2 L (40.0-50.0) % Vital Signs Temperature 36.7 C 08/02/18 11:25 Temperature Source Tympanic 08/02/18 11:25 Pulse 85 08/02/18 11:25 Pulse Rhythm Irregular 08/02/18 15:44 Respiratory Rate 18 08/02/18 11:25 Respiratory Effort Non-Labored 08/02/18 15:44 Respiratory Depth Normal 08/02/18 08:30 Respiratory Pattern Normal 08/02/18 08:30 Blood Pressure 120/85 08/02/18 11:25 Pulse Oximetry 99 08/02/18 11:25 Oxygen Delivery Method Room Air 08/02/18 11:25 Oxygen Flow Rate 0 08/02/18 11:25 Pain Level 2 08/02/18 11:25 Comment 08/02/18 11:25 Intake & Output 08/01/18 08/02/18 08/02/18 23:59 11:59 23:59 Intake Total 850 / 850 285 / 285 600 / 600 Balance 850 / 850 285 / 285 600 / 600 Weight 62.9 kg Intake: IV 285 / 285 Oral 840 / 840 0 / 0 600 / 600 Other: Urine Appearance Clear Comment voiding w/o difficulties void x 1 voiding w/o difficulty Voiding Methods Toilet Toilet Laboratory Results WBC 5.92 k/cumm (4.4-10.8) 08/02/18 06:38 RBC 4.22 m/cumm (4.50-6.00) L 08/02/18 06:38 Hgb 12.4 g/dL (13.5-17.5) L 08/02/18 06:38 Hct 37.2 % (40.0-50.0) L 08/02/18 06:38 MCV 88.2 fL (80-95) 08/02/18 06:38 MCH 29.4 pg (27.0-33.0) 08/02/18 06:38 MCHC 33.3 g/dL (32.0-36.0) 08/02/18 06:38 RDW 13.1 % (11.8-14.1) 08/02/18 06:38 Plt Count 244 x1000/uL (130-400) 08/02/18 06:38 MPV 9.6 fL (8.0-11.0) 08/02/18 06:38 Immature Gran % 0.5 08/02/18 06:38 Neutrophils % 45.6 08/02/18 06:38 Lymphocytes % 35.1 08/02/18 06:38 Monocytes % 9.0 08/02/18 06:38 Eosinophils % 9.3 08/02/18 06:38 Basophils % 0.5 08/02/18 06:38 Absolute Neutrophils 2.70 k/cumm (1.2-6.7) 08/02/18 06:38 Absolute Lymphocytes 2.08 k/cumm (1.2-3.4) 08/02/18 06:38 Absolute Monocytes 0.53 k/cumm (0.11-0.7) 08/02/18 06:38 Absolute Eosinophils 0.55 k/cumm (0.0-0.7) 08/02/18 06:38 Absolute Basophils 0.03 k/cumm (0.0-0.2) 08/02/18 06:38 ESR 48 MM/HR (0-15) H 07/30/18 08:07 Sodium 139 mmol/L (136-145) 08/02/18 06:38 Potassium 3.8 mmol/L (3.5-5.1) 08/02/18 06:38 Chloride 103 mmol/L (98-107) 08/02/18 06:38 Carbon Dioxide 27.7 mmol/L (21.0-32.0) 08/02/18 06:38 Anion Gap 8.3 mmol/L (3-11) 08/02/18 06:38 BUN 16 mg/dL (7-18) 08/02/18 06:38 Creatinine 0.87 mg/dL (0.70-1.30) 08/02/18 06:38 Estimated GFR/1.73 m2 >= 60.00 (mL/min/1.73m2) 08/02/18 06:38 Glucose 86 mg/dL (70-100) 08/02/18 06:38 Calcium 8.8 mg/dL (8.5-10.1) 08/02/18 06:38 Total Bilirubin 0.6 mg/dL (0.2-1.0) 07/27/18 06:25 AST 92 U/L (15-37) H 07/27/18 06:25 ALT 162 U/L (12-78) H 07/27/18 06:25 Alkaline Phosphatase 125 U/L (46-116) H 07/27/18 06:25 C-Reactive Protein 2.36 mg/dL (0.0-0.3) H 07/30/18 08:07 Total Protein 7.5 g/dL (6.4-8.2) 07/27/18 06:25 Albumin 3.3 g/dL (3.4-5.0) L 07/27/18 06:25 Vancomycin Trough 19.6 ug/mL (10.0-20.0) 08/02/18 11:31 Urine Opiates Screen Negative (Negative) 07/27/18 10:58 Urine Methadone Screen Negative (Negative) 07/27/18 10:58 Ur Barbiturates Screen Negative (Negative) 07/27/18 10:58 Ur Tricyclics Screen Negative (Negative) 07/27/18 10:58 Ur Amphetamines Screen Negative (Negative) 07/27/18 10:58 U Benzodiazepines Scrn Negative (Negative) 07/27/18 10:58 Urine Cocaine Screen Positive (Negative) 07/27/18 10:58 Ur THC Screen Positive (Negative) 07/27/18 10:58 Objective Narrative Objective Narrative: Exam(s) CT CHEST, ABDOMEN AND PELVIS: The study was carried out with intravenous injection of 100 cc Omnipaque 350 and oral ingestion of dilute Omnipaque. The lungs are free of infiltrate. No mass is identified. There is no pleural effusion. The cardiovascular structures appear intact. There is no evidence of hilar or mediastinal adenopathy. The heart is not enlarged. There is no pericardial effusion. SUMMARY: No acute abnormality is demonstrated in the chest. CT ABDOMEN AND PELVIS: The study was carried out according to the usual protocol with an intravenous injection of 100 cc Omnipaque 350 and oral ingestion of dilute Omnipaque. There is hepatosplenomegaly. The gallbladder is somewhat dilated. There is no evidence of gallstones or biliary obstruction. The pancreas is intact. The kidneys are unremarkable. The adrenals are normal. There is no evidence of bowel obstruction. The appendix is normal. There is a large quantity of fecal material and scattered gas throughout the colon consistent with constipation. The bladder is unremarkable. The reproductive organs as visualized are unremarkable. There is no evidence of free air or free fluid in the intraperitoneal space. There is no evidence of an aortic aneurysm. There are mild degenerative changes involving the spine. There is no evidence of a localized are of bony sclerosis, osteolysis or expansion. SUMMARY: Hepatosplenomegaly is demonstrated. No acute abnormality is seen and there is evidence of constipation.
[2018-08-02 19:15] VITALS: BP 112/69; PULSE 83; RESP 18; TEMP 36.7; O2SAT 97
[2018-08-02] MEDS: Normal Saline Flush 10 ML SYR IVP (20:01)
[2018-08-02] MEDS: Nicotine 21 MG/24 HR PATCH TD (20:06)
--- NOTE | 2018-08-02 21:20 | NUR.NOTE ---
Addendum entered by Kierra Braxton 08/02/18 21:26: Patient also stated that he has been having blood per his rectum for 3 days. Patient said that he only mentioned it today and the nurse did not ask how long it had been going on so he did not tell her then. Original Note: Nursing Note: This RN explained to this patient that his CT showed that he is constipated. Offered patient BM meds. Patient declined stating that he will try something if he does not have a BM tomorrow. Patient as
[2018-08-03 00:34] VITALS: BP 114/73; PULSE 86; RESP 18; TEMP 36.7; O2SAT 98
[2018-08-03] MEDS: Normal Saline Flush 10 ML SYR IVP ×2 (04:16→19:53)
[2018-08-03] MEDS: VANCOMYCIN 1,000 MG in Normal Saline 250 ML 167 MG IVPB (04:17)
[2018-08-03 07:20] VITALS: BP 125/84; PULSE 90; RESP 18; TEMP 37; O2SAT 95; O2SAT 98
[2018-08-03 07:49] LABS: Anion Gap 7.2 mmol/L (3-11); BUN 19 mg/dL (7-18); CO2 27.8 mmol/L (21.0-32.0); CREATININE 0.81 mg/dL (0.70-1.30); Calcium 8.5 mg/dL (8.5-10.1); Chloride 105 mmol/L (98-107); Glucose 91 mg/dL (70-100); Potassium 4.3 mmol/L (3.5-5.1); Sodium 140 mmol/L (136-145)
[2018-08-03 07:55] LABS: Abs Immature Grans 0.02 k/cumm (0.0-0.09); Absolute Basophil Count 0.03 k/cumm (0.0-0.2); Absolute Lymphocyte Count 1.34 k/cumm (1.2-3.4); Basophils % 0.8; Eosinophils % 10.6; HGB 12.2 g/dL (13.5-17.5); Immature Grans % 0.5; Lymphocytes % 35.4; Mean Corp. HGB Concentration 33.9 g/dL (32.0-36.0); Mean Corpuscular Hemoglobin 30.1 pg (27.0-33.0); Mean Corpuscular Volume 88.9 fL (80-95); Mean Platelet Volume 9.7 fL (8.0-11.0); Monocytes % 10.6; Neutrophils % 42.1; Platelet Count 217 x1000/uL (130-400); RBC 4.05 m/cumm (4.50-6.00); RBC Distribution Width 13.2 % (11.8-14.1); White Blood Cell Count 3.79 k/cumm (4.4-10.8)
[2018-08-03] MEDS: Ibuprofen 600 MG TAB PO ×2 (08:31→18:15)
[2018-08-03 08:40] LABS: ESR 54 MM/HR (0-15)
[2018-08-03] MEDS: VANCOMYCIN 1,000 MG in Normal Saline 250 ML 166 MG IVPB (11:41)
[2018-08-03] MEDS: Normal Saline 500 ML 30 ML IV (11:41)
[2018-08-03 11:45] VITALS: BP 110/69; PULSE 78; RESP 18; TEMP 36.7; O2SAT 97
[2018-08-03 14:35] LABS: C-Reactive Protein 1.07 mg/dL (0.0-0.3)
--- NOTE | 2018-08-03 15:55 | PDOC.CMPRO ---
- If Service Date Differs Date of service: 08/03/18 Time of Service: 15:55 Care Management Progress Note S/O: Kevin is lying in bed this morning when this telegraphic typewriter installer visits. Discussed community resources with Kevin this morning. Kevin is concerned about his bills in the community. Discussed resources such as [facility] and community connections to assist with short term disability application. CM contacted Jessica [facility], and left a message on her office phone as well as her cell phone, awaiting a reply. Kevin continues on TID IV antibiotics at this time. He is interested in returning home with outpatient infusion, though is concerned about his housing upon discharge. A: 43 year old male admitted to [facility] 07/26/18 for Endocarditis P: Plan remains undetermined at this time. CM provided resources and referrals for follow up, and will continue to follow.
--- NOTE | 2018-08-03 16:05 | CMPROGNOTE_ITS ---
- If Service Date Differs Date of service: 08/03/18 Time of Service: 15:55 Care Management Progress Note S/O: Kevin is lying in bed this morning when this brief writer visits. Discussed community resources with Kevin this morning. Kevin is concerned about his bills in the community. Discussed resources such as [facility] and community connections to assist with short term disability application. CM contacted Jessica [facility], and left a message on her office phone as well as her cell phone, awaiting a reply. Kevin continues on TID IV antibiotics at this time. He is interested in returning home with outpatient infusion, though is concerned about his housing upon discharge. A: 43 year old male admitted to [facility] 07/26/18 for Endocarditis P: Plan remains undetermined at this time. CM provided resources and referrals for follow up, and will continue to follow.
[2018-08-03 16:20] VITALS: BP 140/105; PULSE 90; RESP 17; TEMP 36.7; O2SAT 98
[2018-08-03] MEDS: VANCOMYCIN 1,000 MG in Normal Saline 250 ML 166.667 MG IVPB (19:52)
[2018-08-03] MEDS: Docusate Sodium 100 MG CAP PO (20:04)
[2018-08-03 20:08] VITALS: BP 100/61; PULSE 89; RESP 17; TEMP 36.7; O2SAT 97
[2018-08-03] MEDS: Cyclobenzaprine 10 MG TAB 5 MG PO (20:32)
[2018-08-03] MEDS: Nicotine 21 MG/24 HR PATCH TD (22:01)
[2018-08-04] VITALS (7 sets, daily range): BP systolic 97–117; BP diastolic 62–75; PULSE 66–90; RESP 17–18; TEMP 35.2–37.1; O2SAT 96–98
[2018-08-04] MEDS: Normal Saline Flush 10 ML SYR IVP ×4 (03:20→21:48)
[2018-08-04] MEDS: VANCOMYCIN 1,000 MG in Normal Saline 250 ML 167 MG IVPB ×2 (03:20→11:59)
[2018-08-04] MEDS: Ibuprofen 600 MG TAB PO ×3 (03:28→21:48)
[2018-08-04] MEDS: Cyclobenzaprine 10 MG TAB 5 MG PO ×2 (11:34→21:49)
[2018-08-04 11:48] LABS: Vancomycin, Trough 20.2 ug/mL (10.0-20.0)
--- NOTE | 2018-08-04 12:44 | PDOC.CMPRO ---
- If Service Date Differs Date of service: 08/04/18 Time of Service: 12:44 Care Management Progress Note S/O: Kevin is lying in bed this morning when this newspaper writer visits. Kevin continues to be interested in obtaining new housing. MCKAYLA Lopez, contacted [facility] this morning, she states that she will outreach to Kevin today via telephone. notified Jessica that Kevin is interested in different housing options, Jessica states to CM that Kevin should connect with economic services to discuss housing options. Jessica states that she will connect with Kevin again after he is discharged into the community. A: 43 year old male admitted to [facility] 07/26/18 for Endocarditis P: Kevin is currently working on alternate housing in the community. MCKAYLA Lopez, contacted Kevin today to discuss housing options in the community. Kevin has the information for economic services as well as [facility].
--- NOTE | 2018-08-04 13:15 | CMPROGNOTE_ITS ---
- If Service Date Differs Date of service: 08/04/18 Time of Service: 12:44 Care Management Progress Note S/O: Kevin is lying in bed this morning when this chief underwriter visits. Kevin continues to be interested in obtaining new housing. MCKAYLA Lopez, contacted [facility] this morning, she states that she will outreach to Kevin today via telephone. notified Jessica that Kevin is interested in different housing options, Jessica states to CM that Kevin should connect with economic services to discuss housing options. Jessica states that she will connect with Kevin again after he is discharged into the community. A: 43 year old male admitted to [facility] 07/26/18 for Endocarditis P: Kevin is currently working on alternate housing in the community. MCKAYLA Lopez , contacted Kevin today to discuss housing options in the community. Kevin has the information for economic services as well as [facility].
--- NOTE | 2018-08-04 15:11 | W.PM.PROGNOT ---
Assessment and Plan (1) Bacteremia: Current visit: No Status: Acute Midline in place - On day # 7 of IV Vancomycin. 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 Current Blood Cultures from 07/18 and 07/26 remain negative. Repeat from 07/30 due to overnight fevers remain without growth as well. SUMMER 08/[address] Imaging without source. Plan on discussion with ID for planned, probable 6 weeks of antibiotic therapy. (2) IV drug abuse: Current visit: No Status: Acute Chronic habitual user. Also with history of HCV. (3) DVT prophylaxis: Current visit: No Status: Acute SC Lovenox ordered but refused by patient previously. Discussed risks in detail with patient. Subjective Interval history since last seen: 43 year old man direct admitted to the hospital at the request of Dr. Chon Motta for presumed failure of outpatient antibiotic therapy. 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 He was recently hospitalized for Corynebacterium (microbacterium) bacteremia and was discharged on 07/20 with plan for outpatient Daptomycin following consultation with [facility] [place] infectious disease specialist, Dr. Breaux. The patient was seen by his PCP and reportedly failed outpatient daptomycin, with reported fevers, chills, and diaphoresis. He was referred for hospitalizion for IV Vancomycin. The patient continued to have fevers, max of 39.2 overnight a few nights ago, as well as subjective fevers and chills, but has now remained afebrile for over 96 hours. CRP has decreased nicely as well. Blood Cultures continue to be without growth. SUMMER performed and negative for endocarditis. Patient underwent further work-up with CT of the chest, abdomen, and pelvis without a specific source identified. No other overnight events reported. Exam Narrative Exam Narrative: General: Patient appears comfortable, AAOX3, NAD Neck: Supple CV: Regular, nontachycardic, S1S2, No rubs, murmurs, or gallops. Pulmonary: Clear to auscultation bilaterally, no crackles, wheezing, or rhonchi Abdomen: + Bowel Sounds, soft, nontender, nondistended Vascular: No lower extremity edema Psych: Normal mood and affect. Objective Objective Clinical Data: Abnormal lab results 08/04/18 Range/Units 11:05 Vancomycin Trough 20.2 H* (10.0-20.0) ug/mL Vital Signs Temperature 36.6 C 08/04/18 11:10 Temperature Source Tympanic 08/04/18 11:10 Pulse 90 08/04/18 11:10 Pulse Rhythm Regular 08/04/18 03:15 Respiratory Rate 18 08/04/18 11:10 Respiratory Effort 08/04/18 03:15 Respiratory Depth Normal 08/04/18 03:15 Respiratory Pattern Normal 08/04/18 03:15 Blood Pressure 113/71 08/04/18 11:10 Pulse Oximetry 96 08/04/18 11:10 Oxygen Delivery Method Room Air 08/04/18 11:10 Oxygen Flow Rate 0 08/04/18 11:10 Pain Level 0 08/04/18 12:34 Comment 08/02/18 11:25 Intake & Output 08/03/18 08/04/18 08/04/18 23:59 11:59 23:59 Intake Total 1325.117 / 6304.434 5336 / 1230 370 / 370 Balance 1325.117 / 7183.022 3848 / 1230 370 / 370 Weight 62.3 kg Intake: IV 605.117 / 605.117 270 / 270 270 / 270 Oral 720 / 720 960 / 960 100 / 100 Other: Urine Color Yellow Urine Appearance Clear Comment Pt voids ind. VOIDED IN TOILET Voiding Methods Toilet Toilet Laboratory Results WBC 3.79 k/cumm (4.4-10.8) L D 08/03/18 06:55 RBC 4.05 m/cumm (4.50-6.00) L 08/03/18 06:55 Hgb 12.2 g/dL (13.5-17.5) L 08/03/18 06:55 Hct 36.0 % (40.0-50.0) L 08/03/18 06:55 MCV 88.9 fL (80-95) 08/03/18 06:55 MCH 30.1 pg (27.0-33.0) 08/03/18 06:55 MCHC 33.9 g/dL (32.0-36.0) 08/03/18 06:55 RDW 13.2 % (11.8-14.1) 08/03/18 06:55 Plt Count 217 x1000/uL (130-400) 08/03/18 06:55 MPV 9.7 fL (8.0-11.0) 08/03/18 06:55 Immature Gran % 0.5 08/03/18 06:55 Neutrophils % 42.1 08/03/18 06:55 Lymphocytes % 35.4 08/03/18 06:55 Monocytes % 10.6 08/03/18 06:55 Eosinophils % 10.6 08/03/18 06:55 Basophils % 0.8 08/03/18 06:55 Absolute Neutrophils 1.60 k/cumm (1.2-6.7) 08/03/18 06:55 Absolute Lymphocytes 1.34 k/cumm (1.2-3.4) 08/03/18 06:55 Absolute Monocytes 0.40 k/cumm (0.11-0.7) 08/03/18 06:55 Absolute Eosinophils 0.40 k/cumm (0.0-0.7) 08/03/18 06:55 Absolute Basophils 0.03 k/cumm (0.0-0.2) 08/03/18 06:55 ESR 54 MM/HR (0-15) H 08/03/18 06:55 Sodium 140 mmol/L (136-145) 08/03/18 06:55 Potassium 4.3 mmol/L (3.5-5.1) 08/03/18 06:55 Chloride 105 mmol/L (98-107) 08/03/18 06:55 Carbon Dioxide 27.8 mmol/L (21.0-32.0) 08/03/18 06:55 Anion Gap 7.2 mmol/L (3-11) 08/03/18 06:55 BUN 19 mg/dL (7-18) H 08/03/18 06:55 Creatinine 0.81 mg/dL (0.70-1.30) 08/03/18 06:55 Estimated GFR/1.73 m2 >= 60.00 (mL/min/1.73m2) 08/03/18 06:55 Glucose 91 mg/dL (70-100) 08/03/18 06:55 Calcium 8.5 mg/dL (8.5-10.1) 08/03/18 06:55 Total Bilirubin 0.6 mg/dL (0.2-1.0) 07/27/18 06:25 AST 92 U/L (15-37) H 07/27/18 06:25 ALT 162 U/L (12-78) H 07/27/18 06:25 Alkaline Phosphatase 125 U/L (46-116) H 07/27/18 06:25 C-Reactive Protein 1.07 mg/dL (0.0-0.3) H 08/03/18 06:55 Total Protein 7.5 g/dL (6.4-8.2) 07/27/18 06:25 Albumin 3.3 g/dL (3.4-5.0) L 07/27/18 06:25 Vancomycin Trough 20.2 ug/mL (10.0-20.0) H* 08/04/18 11:05 Urine Opiates Screen Negative (Negative) 07/27/18 10:58 Urine Methadone Screen Negative (Negative) 07/27/18 10:58 Ur Barbiturates Screen Negative (Negative) 07/27/18 10:58 Ur Tricyclics Screen Negative (Negative) 07/27/18 10:58 Ur Amphetamines Screen Negative (Negative) 07/27/18 10:58 U Benzodiazepines Scrn Negative (Negative) 07/27/18 10:58 Urine Cocaine Screen Positive (Negative) 07/27/18 10:58 Ur THC Screen Positive (Negative) 07/27/18 10:58
--- NOTE | 2018-08-04 15:20 | PGE_ITS ---
Assessment and Plan (1) Bacteremia: Current visit: Yes Status: Acute Midline in place - On day # 9 of IV Vancomycin. 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 Current Blood Cultures from 07/18 and 07/26 remain negative. Repeat from 07/30 due to overnight fevers remain without growth as well. SUMMER 08/[address] [facility] without source. Plan on discussion with ID for planned, probable 6 weeks of antibiotic therapy. Discussed goals of care with patient. At this time he prefers to stay in the hospital due to his poor living situation - appears that others sharing his living area abuse drugs, and he would prefer to seek alternate living situation given his own struggles with IV Drug Abuse. Plan is for continued hospitalization over the weekend, discharge on tuesday without PICC line given history of IVDA, and return to the infusion center on twice daily basis for insertion of a peripheral IV followed by administration of IV Vancomycin. (2) IV drug abuse: Current visit: Yes Status: Acute Chronic habitual user. Also with history of HCV. (3) DVT prophylaxis: Current visit: Yes Status: Acute SC Lovenox ordered but refused by patient previously. Discussed risks in detail with patient. Subjective Interval history since last seen: 43 year old man direct admitted to the hospital at the request of Dr. Chon Motta for presumed failure of outpatient antibiotic therapy. 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 He was recently hospitalized for Corynebacterium (microbacterium) bacteremia and was discharged on 07/20 with plan for outpatient Daptomycin following consultation with [facility] infectious disease specialist, Dr. Breaux. The patient was seen by his PCP and reportedly failed outpatient daptomycin, with reported fevers, chills, and diaphoresis. He was referred for hospitalizion for IV Vancomycin. The patient continued to have fevers, max of 39.2 overnight a few nights ago, as well as subjective fevers and chills, but has now remained afebrile for over 96 hours. CRP has decreased nicely as well. Blood Cultures continue to be without growth. SUMMER performed and negative for endocarditis. Patient underwent further work-up with CT of the chest, abdomen, and pelvis without a specific source identified. No other overnight events reported. Exam Narrative Exam Narrative: General: Patient appears comfortable, AAOX3, NAD Skin: Partial hypopigmentation throughout body consistent with known diagnosis of Vitiligo Neck: Supple CV: Regular, nontachycardic, S1S2, No rubs, murmurs, or gallops. Pulmonary: Clear to auscultation bilaterally, no crackles, wheezing, or rhonchi Abdomen: + Bowel Sounds, soft, nontender, nondistended Vascular: No lower extremity edema Psych: Normal mood and affect. Objective Objective Clinical Data: Abnormal lab results 08/04/18 Range/Units 11:05 Vancomycin Trough 20.2 H* (10.0-20.0) ug/mL Vital Signs Temperature 36.6 C 08/04/18 11:10 Temperature Source Tympanic 08/04/18 11:10 Pulse 90 08/04/18 11:10 Pulse Rhythm Regular 08/04/18 03:15 Respiratory Rate 18 08/04/18 11:10 Respiratory Effort 08/04/18 03:15 Respiratory Depth Normal 08/04/18 03:15 Respiratory Pattern Normal 08/04/18 03:15 Blood Pressure 113/71 08/04/18 11:10 Pulse Oximetry 96 08/04/18 11:10 Oxygen Delivery Method Room Air 08/04/18 11:10 Oxygen Flow Rate 0 08/04/18 11:10 Pain Level 0 08/04/18 12:34 Comment 08/02/18 11:25 Intake & Output 08/03/18 08/04/18 08/04/18 23:59 11:59 23:59 Intake Total 1325.117 / 7888.286 9567 / 1230 370 / 370 Balance 1325.117 / 6181.050 3386 / 1230 370 / 370 Weight 62.3 kg Intake: IV 605.117 / 605.117 270 / 270 270 / 270 Oral 720 / 720 960 / 960 100 / 100 Other: Urine Color Yellow Urine Appearance Clear Comment Pt voids ind. VOIDED IN TOILET Voiding Methods Toilet Toilet Laboratory Results WBC 3.79 k/cumm (4.4-10.8) L D 08/03/18 06:55 RBC 4.05 m/cumm (4.50-6.00) L 08/03/18 06:55 Hgb 12.2 g/dL (13.5-17.5) L 08/03/18 06:55 Hct 36.0 % (40.0-50.0) L 08/03/18 06:55 MCV 88.9 fL (80-95) 08/03/18 06:55 MCH 30.1 pg (27.0-33.0) 08/03/18 06:55 MCHC 33.9 g/dL (32.0-36.0) 08/03/18 06:55 RDW 13.2 % (11.8-14.1) 08/03/18 06:55 Plt Count 217 x1000/uL (130-400) 08/03/18 06:55 MPV 9.7 fL (8.0-11.0) 08/03/18 06:55 Immature Gran % 0.5 08/03/18 06:55 Neutrophils % 42.1 08/03/18 06:55 Lymphocytes % 35.4 08/03/18 06:55 Monocytes % 10.6 08/03/18 06:55 Eosinophils % 10.6 08/03/18 06:55 Basophils % 0.8 08/03/18 06:55 Absolute Neutrophils 1.60 k/cumm (1.2-6.7) 08/03/18 06:55 Absolute Lymphocytes 1.34 k/cumm (1.2-3.4) 08/03/18 06:55 Absolute Monocytes 0.40 k/cumm (0.11-0.7) 08/03/18 06:55 Absolute Eosinophils 0.40 k/cumm (0.0-0.7) 08/03/18 06:55 Absolute Basophils 0.03 k/cumm (0.0-0.2) 08/03/18 06:55 ESR 54 MM/HR (0-15) H 08/03/18 06:55 Sodium 140 mmol/L (136-145) 08/03/18 06:55 Potassium 4.3 mmol/L (3.5-5.1) 08/03/18 06:55 Chloride 105 mmol/L (98-107) 08/03/18 06:55 Carbon Dioxide 27.8 mmol/L (21.0-32.0) 08/03/18 06:55 Anion Gap 7.2 mmol/L (3-11) 08/03/18 06:55 BUN 19 mg/dL (7-18) H 08/03/18 06:55 Creatinine 0.81 mg/dL (0.70-1.30) 08/03/18 06:55 Estimated GFR/1.73 m2 >= 60.00 (mL/min/1.73m2) 08/03/18 06:55 Glucose 91 mg/dL (70-100) 08/03/18 06:55 Calcium 8.5 mg/dL (8.5-10.1) 08/03/18 06:55 Total Bilirubin 0.6 mg/dL (0.2-1.0) 07/27/18 06:25 AST 92 U/L (15-37) H 07/27/18 06:25 ALT 162 U/L (12-78) H 07/27/18 06:25 Alkaline Phosphatase 125 U/L (46-116) H 07/27/18 06:25 C-Reactive Protein 1.07 mg/dL (0.0-0.3) H 08/03/18 06:55 Total Protein 7.5 g/dL (6.4-8.2) 07/27/18 06:25 Albumin 3.3 g/dL (3.4-5.0) L 07/27/18 06:25 Vancomycin Trough 20.2 ug/mL (10.0-20.0) H* 08/04/18 11:05 Urine Opiates Screen Negative (Negative) 07/27/18 10:58 Urine Methadone Screen Negative (Negative) 07/27/18 10:58 Ur Barbiturates Screen Negative (Negative) 07/27/18 10:58 Ur Tricyclics Screen Negative (Negative) 07/27/18 10:58 Ur Amphetamines Screen Negative (Negative) 07/27/18 10:58 U Benzodiazepines Scrn Negative (Negative) 07/27/18 10:58 Urine Cocaine Screen Positive (Negative) 07/27/18 10:58 Ur THC Screen Positive (Negative) 07/27/18 10:58
[2018-08-04] MEDS: VANCOMYCIN 1,000 MG in Normal Saline 250 ML 166.667 MG IVPB (21:35)
[2018-08-04] MEDS: Nicotine 21 MG/24 HR PATCH TD (22:09)
[2018-08-05] VITALS (8 sets, daily range): BP systolic 94–110; BP diastolic 55–75; PULSE 77–100; RESP 14–18; TEMP 36.1–37.5; O2SAT 94–99
[2018-08-05] MEDS: VANCOMYCIN 1,000 MG in Normal Saline 250 ML 166.667 MG IVPB (05:47)
[2018-08-05] MEDS: Normal Saline Flush 10 ML SYR IVP ×5 (05:47→22:05)
[2018-08-05] MEDS: Ibuprofen 600 MG TAB PO ×4 (05:53→22:06)
[2018-08-05] MEDS: Cyclobenzaprine 10 MG TAB 5 MG PO (05:53)
[2018-08-05 06:34] LABS: Abs Immature Grans 0.03 k/cumm (0.0-0.09); Absolute Basophil Count 0.04 k/cumm (0.0-0.2); Absolute Eosinophil Count 0.49 k/cumm (0.0-0.7); Absolute Lymphocyte Count 1.34 k/cumm (1.2-3.4); Absolute Monocyte Count 0.55 k/cumm (0.11-0.7); Absolute Neutrophil Count 3.21 k/cumm (1.2-6.7); Basophils % 0.7; Eosinophils % 8.7; HCT 39.1 % (40.0-50.0); HGB 13.5 g/dL (13.5-17.5); Immature Grans % 0.5; Lymphocytes % 23.7; Mean Corp. HGB Concentration 34.5 g/dL (32.0-36.0); Mean Corpuscular Hemoglobin 30.3 pg (27.0-33.0); Mean Corpuscular Volume 87.9 fL (80-95); Mean Platelet Volume 9.6 fL (8.0-11.0); Monocytes % 9.7; Neutrophils % 56.7; Platelet Count 242 x1000/uL (130-400); RBC 4.45 m/cumm (4.50-6.00); RBC Distribution Width 13.2 % (11.8-14.1); White Blood Cell Count 5.66 k/cumm (4.4-10.8)
[2018-08-05 06:36] LABS: C-Reactive Protein 0.85 mg/dL (0.0-0.3)
--- NOTE | 2018-08-05 13:10 | PDOC.CMPRO ---
- If Service Date Differs Date of service: 08/05/18 Time of Service: 13:10 Care Management Progress Note S/O: Kevin is lying in bed this morning when this fha underwriter visits. Anticipated plan is that Kevin will discharge from [facility] on Tuesday, 08/07 and visit infusion 2x/day (0500 and 1900) for outpatient antibiotics. Kevin and CM discussed housing and Kevin states no one has come to see me about housing and there is nothing they can do before I discharge. Kevin states that he is unable to do anything to work on his housing situation while at [facility]. CM reminds him that he has a lap top and a phone and might start there. Kevin has the information for [employer] as well as [facility]. A: 43 year old male admitted to [facility] 07/26/18 for Endocarditis P: Kevin is currently working on alternate housing in the community. Anticipate patient will discharge with no services and recieve IV antibiotics BID at [facility] and follow up with his PCP. CM will continue to offer support to patient and care team regarding discharge planning and disposition.
--- NOTE | 2018-08-05 13:15 | CMPROGNOTE_ITS ---
- If Service Date Differs Date of service: 08/05/18 Time of Service: 13:10 Care Management Progress Note S/O: Kevin is lying in bed this morning when this handbook writer visits. Anticipated plan is that Kevin will discharge from [facility] on Tuesday, 08/07 and visit infusion 2x/day (0500 and 1900) for outpatient antibiotics. Kevin and CM discussed housing and Kevin states no one has come to see me about housing and there is nothing they can do before I discharge. Kevin states that he is unable to do anything to work on his housing situation while at [facility]. CM reminds him that he has a lap top and a phone and might start there. Kevin has the information for [employer] as well as [facility]. A: 43 year old male admitted to [facility] 07/26/18 for Endocarditis P: Kevin is currently working on alternate housing in the community. Anticipate patient will discharge with no services and recieve IV antibiotics BID at [facility] and follow up with his PCP. CM will continue to offer support to patient and care team regarding discharge planning and disposition.
[2018-08-05 13:51] LABS: Vancomycin, Trough 17.7 ug/mL (10.0-20.0)
[2018-08-05] MEDS: VANCOMYCIN 1,000 MG in Normal Saline 250 ML 167 MG IVPB (14:13)
--- NOTE | 2018-08-05 19:00 | W.PM.PROGNOT ---
Assessment and Plan (1) Endocarditis: Current visit: Yes Status: Acute Presumed endocarditis from known IV drug use. He has bacteremia from micrococcus. He is responding to IV vancomycin. Plan as per ID is to complete 6 weeks of IV vancomycin. We are trying to calculate a twice a day dose for the vancomycin. Vancomycin trough drawn today. Plan is to try to continue IV antibiotics as an outpatient beginning next week. 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 Obviously high risk behavior going forward Subjective Interval history since last seen: Continues on IV antibiotic therapy for presumed endocarditis. He offers no new complaints today. He does have a headache which she has had for several days. No chest pain no shortness of breath. Exam Narrative Exam Narrative: On exam he is in no apparent distress. He is smiling and looks overall comfortable. His lung exam is completely clear on the right and left. His heart shows a regular rate and rhythm without apparent murmur. Clear S1 and S2 Objective Objective Clinical Data: Abnormal lab results 08/05/18 08/05/18 Range/Units 05:57 05:57 RBC 4.45 L (4.50-6.00) m/cumm Hct 39.1 L (40.0-50.0) % C-Reactive Protein 0.85 H (0.0-0.3) mg/dL Vital Signs Temperature 36.8 C 08/05/18 15:55 Temperature Source Tympanic 08/05/18 15:55 Pulse 82 08/05/18 15:55 Pulse Rhythm Regular 08/05/18 07:32 Respiratory Rate 18 08/05/18 15:55 Respiratory Effort Non-Labored 08/05/18 07:32 Respiratory Depth Normal 08/05/18 07:32 Respiratory Pattern Normal 08/05/18 07:32 Blood Pressure 105/66 08/05/18 15:55 Pulse Oximetry 94 L 08/05/18 15:55 Oxygen Delivery Method Room Air 08/05/18 15:55 Oxygen Flow Rate 0 08/05/18 15:55 Pain Level 0 08/05/18 18:09 Comment 08/02/18 11:25 Intake & Output 08/04/18 08/05/18 08/05/18 23:59 11:59 23:59 Intake Total 1090 / 1090 1290 / 1290 770 / 770 Balance 1090 / 1090 1290 / 1290 770 / 770 Weight 63.3 kg Intake: IV 270 / 270 20 / 20 290 / 290 Oral 820 / 820 1270 / 1270 480 / 480 Other: Comment Void x3 in the toilet. Void x2 in the toilet. Voiding Methods Toilet Toilet Laboratory Results WBC 5.66 k/cumm (4.4-10.8) 08/05/18 05:57 RBC 4.45 m/cumm (4.50-6.00) L 08/05/18 05:57 Hgb 13.5 g/dL (13.5-17.5) 08/05/18 05:57 Hct 39.1 % (40.0-50.0) L 08/05/18 05:57 MCV 87.9 fL (80-95) 08/05/18 05:57 MCH 30.3 pg (27.0-33.0) 08/05/18 05:57 MCHC 34.5 g/dL (32.0-36.0) 08/05/18 05:57 RDW 13.2 % (11.8-14.1) 08/05/18 05:57 Plt Count 242 x1000/uL (130-400) 08/05/18 05:57 MPV 9.6 fL (8.0-11.0) 08/05/18 05:57 Immature Gran % 0.5 08/05/18 05:57 Neutrophils % 56.7 08/05/18 05:57 Lymphocytes % 23.7 08/05/18 05:57 Monocytes % 9.7 08/05/18 05:57 Eosinophils % 8.7 08/05/18 05:57 Basophils % 0.7 08/05/18 05:57 Absolute Neutrophils 3.21 k/cumm (1.2-6.7) 08/05/18 05:57 Absolute Lymphocytes 1.34 k/cumm (1.2-3.4) 08/05/18 05:57 Absolute Monocytes 0.55 k/cumm (0.11-0.7) 08/05/18 05:57 Absolute Eosinophils 0.49 k/cumm (0.0-0.7) 08/05/18 05:57 Absolute Basophils 0.04 k/cumm (0.0-0.2) 08/05/18 05:57 ESR 54 MM/HR (0-15) H 08/03/18 06:55 Sodium 140 mmol/L (136-145) 08/03/18 06:55 Potassium 4.3 mmol/L (3.5-5.1) 08/03/18 06:55 Chloride 105 mmol/L (98-107) 08/03/18 06:55 Carbon Dioxide 27.8 mmol/L (21.0-32.0) 08/03/18 06:55 Anion Gap 7.2 mmol/L (3-11) 08/03/18 06:55 BUN 19 mg/dL (7-18) H 08/03/18 06:55 Creatinine 0.81 mg/dL (0.70-1.30) 08/03/18 06:55 Estimated GFR/1.73 m2 >= 60.00 (mL/min/1.73m2) 08/03/18 06:55 Glucose 91 mg/dL (70-100) 08/03/18 06:55 Calcium 8.5 mg/dL (8.5-10.1) 08/03/18 06:55 Total Bilirubin 0.6 mg/dL (0.2-1.0) 07/27/18 06:25 AST 92 U/L (15-37) H 07/27/18 06:25 ALT 162 U/L (12-78) H 07/27/18 06:25 Alkaline Phosphatase 125 U/L (46-116) H 07/27/18 06:25 C-Reactive Protein 0.85 mg/dL (0.0-0.3) H 08/05/18 05:57 Total Protein 7.5 g/dL (6.4-8.2) 07/27/18 06:25 Albumin 3.3 g/dL (3.4-5.0) L 07/27/18 06:25 Vancomycin Trough 17.7 ug/mL (10.0-20.0) 08/05/18 13:28 Urine Opiates Screen Negative (Negative) 07/27/18 10:58 Urine Methadone Screen Negative (Negative) 07/27/18 10:58 Ur Barbiturates Screen Negative (Negative) 07/27/18 10:58 Ur Tricyclics Screen Negative (Negative) 07/27/18 10:58 Ur Amphetamines Screen Negative (Negative) 07/27/18 10:58 U Benzodiazepines Scrn Negative (Negative) 07/27/18 10:58 Urine Cocaine Screen Positive (Negative) 07/27/18 10:58 Ur THC Screen Positive (Negative) 07/27/18 10:58
[2018-08-05] MEDS: LORazepam 1 MG TAB PO (19:13)
[2018-08-05] MEDS: VANCOMYCIN 1,000 MG in Normal Saline 250 ML 166.6 MG IVPB (22:04)
[2018-08-06] MEDS: VANCOMYCIN 1,000 MG in Normal Saline 250 ML 166.6 MG IVPB (06:00)
[2018-08-06] MEDS: Normal Saline Flush 10 ML SYR IVP ×4 (06:00→15:40)
[2018-08-06 06:23] VITALS: BP 102/69; PULSE 89; RESP 16; TEMP 36.3; O2SAT 97
[2018-08-06 07:39] VITALS: BP 115/58; PULSE 85; RESP 17; TEMP 36; O2SAT 98
[2018-08-06] MEDS: Cyclobenzaprine 10 MG TAB 5 MG PO ×3 (07:52→20:45)
[2018-08-06] MEDS: Ibuprofen 600 MG TAB PO ×3 (07:52→20:45)
[2018-08-06 11:40] VITALS: BP 111/75; PULSE 114; RESP 17; TEMP 37; O2SAT 96
[2018-08-06] MEDS: Nicotine 21 MG/24 HR PATCH TD (12:04)
--- NOTE | 2018-08-06 13:03 | PDOC.CMPRO ---
- If Service Date Differs Date of service: 08/06/18 Time of Service: 13:03 Care Management Progress Note S/O: Kevin is lying in bed this morning when CM visits. Anticipated plan is that Kevin will discharge from [facility] on Tuesday, 08/07 and visit infusion 2x/day (0500 and 1900) for outpatient antibiotics. Kevin seems to be in better spirits today in comparison with past days. He is agreeable to the plan of care moving forward and discharge tomorrow. A: 43 year old male admitted to [facility] 07/26/18 for Endocarditis P: Kevin is currently working on alternate housing in the community. Anticipate patient will discharge with no services and recieve IV antibiotics BID at [facility] and follow up with his PCP. Kevin reports that he has a friend who will be dropping his car off at the hospital tomorrow morning so that he can drive himself home at discharge. CM will continue to offer support to patient and care team regarding discharge planning and disposition.
[2018-08-06] MEDS: VANCOMYCIN 1,000 MG in Normal Saline 250 ML 167 MG IVPB (13:50)
[2018-08-06 16:15] VITALS: BP 111/80; PULSE 112; RESP 18; TEMP 37.1; O2SAT 98
[2018-08-06] MEDS: Varenicline 1 MG TAB 0.5 MG PO (16:53)
--- NOTE | 2018-08-06 18:28 | W.PM.PROGNOT ---
Assessment and Plan (1) Endocarditis: Current visit: Yes Status: Acute We are committing to 6 weeks of IV antibiotics with vancomycin. Based on yesterday's trough level will switch him over from 1000 mg q. 8-to 1750 mg every 12 hours beginning tomorrow at 5 AM. The plan is for him to go home tomorrow and come in twice daily for his vancomycin dosing to complete a 6-week course, last dose 09/06/2018. (2) Tobacco abuse: Current visit: Yes Status: Acute He is interested in smoking cessation. He would like a prescription for Chantix when he goes home. Plan is to start him on Chantix 0.5 mg daily times 3 days then 0.5 mg twice daily (3) IV drug abuse: Current visit: Yes Status: Acute Ongoing concern for IV drug abuse. We had a bev discussion about the need for him to stop using IV drugs. He seemed to listen. Subjective Interval history since last seen: Patient offers no new complaints. Specifically no chest pain or shortness of breath. He is interested in smoking cessation and is asking about Chantix. Exam Narrative Exam Narrative: On exam he is sitting up in bed. He is pleasant and in no apparent distress. He does appear slightly anxious with a mild tremor. Pupils are equal and quite dilated but reactive. Objective Objective Clinical Data: Vital Signs Temperature 37.1 C 08/06/18 16:15 Temperature Source Tympanic 08/06/18 16:15 Pulse 112 H 08/06/18 16:15 Pulse Rhythm Regular 08/06/18 07:46 Respiratory Rate 18 08/06/18 16:15 Respiratory Effort Non-Labored 08/06/18 07:46 Respiratory Depth Normal 08/06/18 07:46 Respiratory Pattern Normal 08/06/18 07:46 Blood Pressure 111/80 08/06/18 16:15 Pulse Oximetry 98 08/06/18 16:15 Oxygen Delivery Method Room Air 08/06/18 16:15 Oxygen Flow Rate 0 08/06/18 16:15 Pain Level 5 08/06/18 11:40 Comment 08/02/18 11:25 Intake & Output 08/05/18 08/06/18 08/06/18 23:59 11:59 23:59 Intake Total 1020 / 1020 1420 / 1420 900 / 900 Balance 1020 / 1020 1420 / 1420 900 / 900 Weight 63 kg Intake: IV 540 / 540 270 / 270 290 / 290 Oral 480 / 480 1150 / 1150 610 / 610 Other: Comment patient voids independently Pt voids ind. Voiding Methods Toilet Laboratory Results WBC 5.66 k/cumm (4.4-10.8) 08/05/18 05:57 RBC 4.45 m/cumm (4.50-6.00) L 08/05/18 05:57 Hgb 13.5 g/dL (13.5-17.5) 08/05/18 05:57 Hct 39.1 % (40.0-50.0) L 08/05/18 05:57 MCV 87.9 fL (80-95) 08/05/18 05:57 MCH 30.3 pg (27.0-33.0) 08/05/18 05:57 MCHC 34.5 g/dL (32.0-36.0) 08/05/18 05:57 RDW 13.2 % (11.8-14.1) 08/05/18 05:57 Plt Count 242 x1000/uL (130-400) 08/05/18 05:57 MPV 9.6 fL (8.0-11.0) 08/05/18 05:57 Immature Gran % 0.5 08/05/18 05:57 Neutrophils % 56.7 08/05/18 05:57 Lymphocytes % 23.7 08/05/18 05:57 Monocytes % 9.7 08/05/18 05:57 Eosinophils % 8.7 08/05/18 05:57 Basophils % 0.7 08/05/18 05:57 Absolute Neutrophils 3.21 k/cumm (1.2-6.7) 08/05/18 05:57 Absolute Lymphocytes 1.34 k/cumm (1.2-3.4) 08/05/18 05:57 Absolute Monocytes 0.55 k/cumm (0.11-0.7) 08/05/18 05:57 Absolute Eosinophils 0.49 k/cumm (0.0-0.7) 08/05/18 05:57 Absolute Basophils 0.04 k/cumm (0.0-0.2) 08/05/18 05:57 ESR 54 MM/HR (0-15) H 08/03/18 06:55 Sodium 140 mmol/L (136-145) 08/03/18 06:55 Potassium 4.3 mmol/L (3.5-5.1) 08/03/18 06:55 Chloride 105 mmol/L (98-107) 08/03/18 06:55 Carbon Dioxide 27.8 mmol/L (21.0-32.0) 08/03/18 06:55 Anion Gap 7.2 mmol/L (3-11) 08/03/18 06:55 BUN 19 mg/dL (7-18) H 08/03/18 06:55 Creatinine 0.81 mg/dL (0.70-1.30) 08/03/18 06:55 Estimated GFR/1.73 m2 >= 60.00 (mL/min/1.73m2) 08/03/18 06:55 Glucose 91 mg/dL (70-100) 08/03/18 06:55 Calcium 8.5 mg/dL (8.5-10.1) 08/03/18 06:55 Total Bilirubin 0.6 mg/dL (0.2-1.0) 07/27/18 06:25 AST 92 U/L (15-37) H 07/27/18 06:25 ALT 162 U/L (12-78) H 07/27/18 06:25 Alkaline Phosphatase 125 U/L (46-116) H 07/27/18 06:25 C-Reactive Protein 0.85 mg/dL (0.0-0.3) H 08/05/18 05:57 Total Protein 7.5 g/dL (6.4-8.2) 07/27/18 06:25 Albumin 3.3 g/dL (3.4-5.0) L 07/27/18 06:25 Vancomycin Trough 17.7 ug/mL (10.0-20.0) 08/05/18 13:28 Urine Opiates Screen Negative (Negative) 07/27/18 10:58 Urine Methadone Screen Negative (Negative) 07/27/18 10:58 Ur Barbiturates Screen Negative (Negative) 07/27/18 10:58 Ur Tricyclics Screen Negative (Negative) 07/27/18 10:58 Ur Amphetamines Screen Negative (Negative) 07/27/18 10:58 U Benzodiazepines Scrn Negative (Negative) 07/27/18 10:58 Urine Cocaine Screen Positive (Negative) 07/27/18 10:58 Ur THC Screen Positive (Negative) 07/27/18 10:58
[2018-08-06 20:26] VITALS: BP 103/69; PULSE 107; RESP 19; TEMP 37; O2SAT 98
[2018-08-06] MEDS: VANCOMYCIN 1,000 MG in Normal Saline 250 ML 166 MG IVPB (22:06)
[2018-08-07] MEDS: Ibuprofen 600 MG TAB PO (06:51)
[2018-08-07 07:15] VITALS: BP 119/79; PULSE 92; RESP 17; TEMP 37; O2SAT 99
[2018-08-07] MEDS: Varenicline 1 MG TAB 0.5 MG PO (10:36)
--- NOTE | 2018-08-07 10:46 | PDOC.CMDIS ---
- If Service Date Differs Date of service: 08/07/18 Time of Service: 10:46 LACE Index Scoring Tool - Questions: Length of Stay (in days): 7 - 13 Acuity (Admit via E.D.?): Yes E.D. Visits: 7 - Answers: Total Score: 12 Risk of Readmission: High Risk Care Management Discharge Reason for Hospitalization: Endocarditis Discharge Plan: Kevin will return home today. He will come to the [facility] infusion room BID for IV Vanco. Kevin will F/U with PCP and plan of care as prescribed. He has been working with Jessica Dean [facility], on resources in the community, and will continue to follow up with her. Kevin is also aware that for housing he will need to go to economic services for assistance with housing. Kevin has already contacted [facility] and will f/u with them. Kevin will drive himself home today. Patient/Family Education Needs: Review DC instructions, any limitations, and discuss Ask Me Three Services Needed at Discharge: Infusion Therapy (BID IV antibiotics - infusion room)
--- NOTE | 2018-08-07 18:44 | W.PM.DS.N ---
Date of service: 08/07/18 Time of Service: 18:44 DS: Diagnosis Discharge Diagnosis (1) Endocarditis: Status: Acute Asessment and Plan: Patient is being treated presumptively for endocarditis based on positive blood cultures and IV drug use. He has had a negative TTE and SUMMER. He was having fever and chills on daptomycin therapy. The organism is a micro bacterium (corynebacterium) and appears to be susceptible to vancomycin. The plan is 6 weeks of IV vancomycin, end date 09/06/2018. (2) Tobacco abuse: Status: Acute Asessment and Plan: Patient desires to quit tobacco. He is asking for Chantix. He got his first dose on 08/06/2018. (3) IV drug abuse: Status: Acute Asessment and Plan: Continued high risk behavior. He was counseled on abstinence Discharge Plan Disposition Patient Disposition: HOME Condition: Improving Discharge Details Reason For Visit: ENDOCARDITIS Admit Date/Time: 07/26/18 17:47 Admit Provider: Natan Nye Attending Provider: Natan Nye Primary Care Provider: Aileen Macias Home Meds and New Rx's Prescriptions: New ibuprofen [IBU] 600 mg Tablet 600 mg PO QID PRN PRN (Reason: pain) Qty: 60 RF: 0 varenicline [Chantix] 1 mg Tablet 0.5 mg PO DAILY Qty: 56 RF: 0 Discharge Instructions Instructions: Endocarditis (DC) Stand Alone Forms: Nursing Discharge Form Referrals: Aileen Macias [Primary Care Provider] - 08/24/18 9:45 am Activity:: Activity as Tolerated Equipment/Supplies:: No Equipment Needed Diet:: As Tolerated Discharge Orders Discharge Orders: Discharge Order (Routine); Ordered 08/07/18 Ordered By: Natan Nye Discharge Data Discharge Date/Time-TO BE ENTERED AT DEPARTURE: 08/07/18 11:08 Exam Narrative Exam Narrative: On exam he had no respiratory difficulty. He had no pain conditions other than some left shoulder discomfort which is chronic. He has been complaining of a headache for several days. His vitals are stable and exam is benign. DS: Data Vitals/I&O Vitals and I&O: Vital Signs Temperature 37 C 08/07/18 07:15 Temperature Source Tympanic 08/07/18 07:15 Pulse 92 H 08/07/18 07:15 Pulse Rhythm Regular 08/07/18 07:50 Respiratory Rate 17 08/07/18 07:15 Respiratory Effort 08/07/18 07:50 Respiratory Depth Normal 08/07/18 07:50 Respiratory Pattern Normal 08/06/18 07:46 Blood Pressure 119/79 08/07/18 07:15 Pulse Oximetry 99 08/07/18 07:15 Oxygen Delivery Method Room Air 08/07/18 07:15 Oxygen Flow Rate 0 08/07/18 07:15 Pain Level 4 08/07/18 07:15 Comment 08/02/18 11:25 Intake & Output 08/06/18 08/07/18 08/07/18 23:59 11:59 23:59 Intake Total 900 / 900 990 / 990 Balance 900 / 900 990 / 990 Weight 62.9 kg Intake: IV 290 / 290 750 / 750 Oral 610 / 610 240 / 240 Other: Urine Color Yellow Urine Appearance Clear Clear Urine Odor Normal Normal Comment Pt voids ind. voiding indep in BR Voiding Methods Toilet Toilet Pending studies at discharge: Pharmacotherapy for Substance Abuse Treatment, Nicotine Replacement (07/18/18) Ultrasonography of Heart with Aorta (07/18/18) WBC 5.66 k/cumm (4.4-10.8) 08/05/18 05:57 RBC 4.45 m/cumm (4.50-6.00) L 08/05/18 05:57 Hgb 13.5 g/dL (13.5-17.5) 08/05/18 05:57 Hct 39.1 % (40.0-50.0) L 08/05/18 05:57 MCV 87.9 fL (80-95) 08/05/18 05:57 MCH 30.3 pg (27.0-33.0) 08/05/18 05:57 MCHC 34.5 g/dL (32.0-36.0) 08/05/18 05:57 RDW 13.2 % (11.8-14.1) 08/05/18 05:57 Plt Count 242 x1000/uL (130-400) 08/05/18 05:57 MPV 9.6 fL (8.0-11.0) 08/05/18 05:57 Immature Gran % 0.5 08/05/18 05:57 Neutrophils % 56.7 08/05/18 05:57 Lymphocytes % 23.7 08/05/18 05:57 Monocytes % 9.7 08/05/18 05:57 Eosinophils % 8.7 08/05/18 05:57 Basophils % 0.7 08/05/18 05:57 Absolute Neutrophils 3.21 k/cumm (1.2-6.7) 08/05/18 05:57 Absolute Lymphocytes 1.34 k/cumm (1.2-3.4) 08/05/18 05:57 Absolute Monocytes 0.55 k/cumm (0.11-0.7) 08/05/18 05:57 Absolute Eosinophils 0.49 k/cumm (0.0-0.7) 08/05/18 05:57 Absolute Basophils 0.04 k/cumm (0.0-0.2) 08/05/18 05:57 ESR 54 MM/HR (0-15) H 08/03/18 06:55 Sodium 140 mmol/L (136-145) 08/03/18 06:55 Potassium 4.3 mmol/L (3.5-5.1) 08/03/18 06:55 Chloride 105 mmol/L (98-107) 08/03/18 06:55 Carbon Dioxide 27.8 mmol/L (21.0-32.0) 08/03/18 06:55 Anion Gap 7.2 mmol/L (3-11) 08/03/18 06:55 BUN 19 mg/dL (7-18) H 08/03/18 06:55 Creatinine 0.81 mg/dL (0.70-1.30) 08/03/18 06:55 Estimated GFR/1.73 m2 >= 60.00 (mL/min/1.73m2) 08/03/18 06:55 Glucose 91 mg/dL (70-100) 08/03/18 06:55 Calcium 8.5 mg/dL (8.5-10.1) 08/03/18 06:55 Total Bilirubin 0.6 mg/dL (0.2-1.0) 07/27/18 06:25 AST 92 U/L (15-37) H 07/27/18 06:25 ALT 162 U/L (12-78) H 07/27/18 06:25 Alkaline Phosphatase 125 U/L (46-116) H 07/27/18 06:25 C-Reactive Protein 0.85 mg/dL (0.0-0.3) H 08/05/18 05:57 Total Protein 7.5 g/dL (6.4-8.2) 07/27/18 06:25 Albumin 3.3 g/dL (3.4-5.0) L 07/27/18 06:25 Vancomycin Trough 17.7 ug/mL (10.0-20.0) 08/05/18 13:28 Urine Opiates Screen Negative (Negative) 07/27/18 10:58 Urine Methadone Screen Negative (Negative) 07/27/18 10:58 Ur Barbiturates Screen Negative (Negative) 07/27/18 10:58 Ur Tricyclics Screen Negative (Negative) 07/27/18 10:58 Ur Amphetamines Screen Negative (Negative) 07/27/18 10:58 U Benzodiazepines Scrn Negative (Negative) 07/27/18 10:58 Urine Cocaine Screen Positive (Negative) 07/27/18 10:58 Ur THC Screen Positive (Negative) 07/27/18 10:58
== END 2018-08-07 11:08 | disposition home or self-care (01) | DRG 289 ==
PROVIDERS: Internal Medicine; Internal Medicine Interventional Cardiology; Nurse Practitioner; Admitting Provider Family Medicine; PCP Nurse Practitioner; Visit Provider Family Medicine
PROC: B24BZZ4 Ultrasonography of Heart with Aorta, Transesophageal (ICD-10-PCS; CPT 93312; principal; 2018-08-01 10:45)
DX: I33.0 Acute and subacute infective endocarditis (principal); R78.81 Bacteremia; B96.89 Other specified bacterial agents as the cause of diseases classified elsewhere; F19.10 Other psychoactive substance abuse, uncomplicated; F17.210 Nicotine dependence, cigarettes, uncomplicated; Z72.89 Other problems related to lifestyle; I34.0 Nonrheumatic mitral (valve) insufficiency
CPT/HCPCS: 36410; 36415; 36569; 74177; 80048; 80053; 80307; 85027; 85652; 87040; 87077; 99222; 99231; 99232; 99239; J1650; 71260; 80202; 85025; 86140; 93312; 93320; 93325; J3490

== ENCOUNTER 2018-08-04 00:47 | Outpatient (RCR) | payer MEDICAID, SELFPAY ==
[2018-07-22] MEDS: Normal Saline Flush 10 ML SYR IVP (20:06)
[2018-07-23] MEDS: Normal Saline Flush 10 ML SYR IVP (20:00)
--- NOTE | 2018-07-26 04:31 | NUR.NOTE ---
pt came in tonight for IV antibiotic infusion. pt refused to sign any of the paper work, but gave verbal permission to receive treatment tonight. ANTHONY Bailon was present at the time and said that was sufficient.
== END 2018-08-06 23:59 | disposition home or self-care (01) ==
LOC: INF 00:47
PROVIDERS: PCP Nurse Practitioner; Visit Provider Family Medicine
DX: R78.81 Bacteremia (principal); B96.89 Other specified bacterial agents as the cause of diseases classified elsewhere
CPT/HCPCS: 96365; J0878

== ENCOUNTER 2018-08-15 15:30 | Inpatient (IN) | payer MEDICAID, SELFPAY ==
[2018-08-15 15:46] VITALS: BP 104/74; PULSE 95; RESP 15; TEMP 37.4; O2SAT 98
--- NOTE | 2018-08-15 16:03 | NUR.NOTE ---
Patient was direct admit from pcp office, ambulatory to room.
[2018-08-15 16:07] LABS: Lactate 0.9 mmol/L (0.6-1.4)
[2018-08-15 16:18] LABS: C-Reactive Protein 1.33 mg/dL (0.0-0.3)
[2018-08-15 16:22] LABS: ALT 169 U/L (12-78); AST 73 U/L (15-37); Albumin 3.6 g/dL (3.4-5.0); Alkaline Phosphatase 164 U/L (46-116); Bilirubin, Direct 0.11 mg/dL (0.00-0.20); Bilirubin, Total 0.6 mg/dL (0.2-1.0); Total Protein 7.8 g/dL (6.4-8.2)
[2018-08-15 16:42] LABS: ESR 63 MM/HR (0-15)
[2018-08-15 16:59] LABS: Vancomycin, Trough 16.6 ug/mL (10.0-20.0)
[2018-08-15 17:46] LABS: Anion Gap 14.1 mmol/L (3-11); BUN 13 mg/dL (7-18); CO2 23.9 mmol/L (21.0-32.0); CREATININE 0.78 mg/dL (0.70-1.30); Calcium 9.5 mg/dL (8.5-10.1); Chloride 100 mmol/L (98-107); Glucose 90 mg/dL (70-100); Magnesium 2.3 mg/dL (1.8-2.4); Potassium 3.8 mmol/L (3.5-5.1); Sodium 138 mmol/L (136-145)
[2018-08-15 17:49] LABS: Abs Immature Grans 0.03 k/cumm (0.0-0.09); Absolute Basophil Count 0.01 k/cumm (0.0-0.2); Absolute Eosinophil Count 0.41 k/cumm (0.0-0.7); Absolute Monocyte Count 0.83 k/cumm (0.11-0.7); Absolute Neutrophil Count 5.17 k/cumm (1.2-6.7); Basophils % 0.1; Eosinophils % 5.7; HCT 37.3 % (40.0-50.0); HGB 12.9 g/dL (13.5-17.5); Immature Grans % 0.4; Mean Corp. HGB Concentration 34.6 g/dL (32.0-36.0); Mean Corpuscular Hemoglobin 29.9 pg (27.0-33.0); Mean Corpuscular Volume 86.3 fL (80-95); Monocytes % 11.4; Neutrophils % 71.4; Platelet Count 343 x1000/uL (130-400); RBC 4.32 m/cumm (4.50-6.00); RBC Distribution Width 13.5 % (11.8-14.1); White Blood Cell Count 7.25 k/cumm (4.4-10.8)
[2018-08-15] MEDS: VANCOMYCIN 1,000 MG in Normal Saline 250 ML 166.667 MG IVPB (17:55)
--- NOTE | 2018-08-15 18:34 | HPE_ITS ---
Date of service: 08/15/18 Time of Service: 18:33 Assessment and Plan (1) Fever: Current visit: Yes Status: Acute Recurrent fevers in the setting of ongoing IV drug abuse with IV antibiotic treatment with vancomycin. There is continued concern about recurrent bacteremia and endocarditis. Plan to continue vancomycin. Consult with infectious disease at [facility] for further management recommendations. Repeat blood cultures drawn. Reassess labs in the morning. Plan to place a midline tomorrow. (2) Tobacco abuse: Current visit: No Status: Acute He is currently smoking half of a pack of cigarettes per day. He has been taking Chantix. Continue Chantix at outpatient dosing. As needed nicotine replacement will be available. (3) DVT prophylaxis: Current visit: Yes Status: Acute Lovenox ordered, patient refused first dose. (4) Discharge planning issues: Current visit: No Status: Acute He is a full code. This case was discussed with Dr. ortega who is in agreement. History of Present Illness Chief Complaint: fevers Narrative: Kevin Paulino is a 43-year-old male with a history of IV drug abuse who has recently been admitted to an [facility] for bacteremia, suspected endocarditis. He was first admitted on 07/18/18 to 07/20/18, at that time he had over a months history of shaking chills and fevers. He had been seen prior to this visit in the emergency department been recommended for admission for Microbacterium bacteremia and declined twice. Eventually he was admitted on 09/2018 after being referred from his primary care provider's office. He was admitted to [facility] at that time and empirically treated with IV vancomycin. He was eager for discharge at that time. Infectious disease at [facility] was consulted and recommended daptomycin once daily which he received from his discharge on 07/20/2018 until he was readmitted on 07/26/2018. He went on to use IV drugs after his discharge. He went back to his primary care provider office with continued fevers and shakes. At that time Dr. feliz felt that this represented failure of the outpatient antibiotic regimen. He was then admitted again from his primary care provider office on 07/26/2018. There was concern for recurrent bacteremia at that time he was restarted on the IV vancomycin which appeared to have been appropriate on his previous admission. He went on to have a TTE and a SUMMER which were both negative for endocarditis. Again, he was eager for discharge and agreed to 6 weeks of IV vancomycin as an outpatient. However, today he presented to his primary care provider office again reporting fevers and shakes every night since he was discharged on August 07, 2018. He has been diaphoretic with these episodes he reports headaches, some nausea, no vomiting, no diarrhea. He did have mild chest discomfort earlier today without palpitations. No shortness of breath, cough, wheeze, he denies edema. He does admit to using IV drugs after his discharge on August 07 and August 08. He used a clean needle the first time. He did not use a clean needle on 08-24. He is again admitted to the [facility] floor for IV antibiotics for suspected endocarditis. We will plan to consult infectious disease at [facility] for guidance on his treatment. Review of Systems Review of Systems All systems reviewed & are unremarkable except as noted in HPI and below Meds Home Medications Medication Instructions Recorded Confirmed Type ibuprofen [IBU] 600 mg PO QID PRN PRN #60 tab 08/07/18 08/15/18 Rx varenicline [Chantix] 0.5 mg PO DAILY #56 tab 08/07/18 08/15/18 Rx Allergies Allergy/AdvReac Type Severity Reaction Status Date / Time gabapentin Allergy Intermediate Itching, Unverified 07/18/18 17:32 jumpy Exam Const General: cooperative (pleasant.), comfortable and no acute distress Nutritional Appearance: thin Orientation: alert, awake and oriented x3 HENMT Head: normocephalic and atraumatic Mouth: moist mucous membranes Neck Neck: supple and no JVD Resp Effort & Inspection: normal respiratory effort Auscultation: clear to auscultation bilaterally, no rales, no rhonchi and no wheezes Cardio Rate: regular rate Rhythm: regular rhythm Heart Sounds: S1 normal, S2 normal and murmur (1/6 murmur heard best at LSB) Pulses: normal peripheral pulses GI Palpation: soft, no masses and nontender Auscultation: normal bowel sounds Skin Other: Vitiligo noted across extremities. Neuro General: moves all extremities and no focal motor deficits Speech: speech normal Extrem General: no clubbing, cyanosis or edema Results Labs : 08/18/18 06:20 08/18/18 06:20 Laboratory Results - last 24 hr 08/15/18 08/15/18 08/15/18 15:49 15:49 15:49 WBC RBC Hgb Hct MCV MCH MCHC RDW Plt Count MPV Immature Gran % Neutrophils % Lymphocytes % Monocytes % Eosinophils % Basophils % Absolute Neutrophils Absolute Lymphocytes Absolute Monocytes Absolute Eosinophils Absolute Basophils ESR 63 H Sodium Potassium Chloride Carbon Dioxide Anion Gap BUN Creatinine Estimated GFR/1.73 m2 Glucose Lactate 0.9 Calcium Magnesium Total Bilirubin 0.6 Conjugated Bilirubin 0.11 AST 73 H ALT 169 H Alkaline Phosphatase 164 H C-Reactive Protein 1.33 H Total Protein 7.8 Albumin 3.6 Vancomycin Trough 08/15/18 08/15/18 08/15/18 15:49 15:49 15:49 WBC 7.25 RBC 4.32 L Hgb 12.9 L Hct 37.3 L MCV 86.3 MCH 29.9 MCHC 34.6 RDW 13.5 Plt Count 343 D MPV 10.0 Immature Gran % 0.4 Neutrophils % 71.4 Lymphocytes % 11.0 Monocytes % 11.4 Eosinophils % 5.7 Basophils % 0.1 Absolute Neutrophils 5.17 Absolute Lymphocytes 0.80 L Absolute Monocytes 0.83 H Absolute Eosinophils 0.41 Absolute Basophils 0.01 ESR Sodium 138 Potassium 3.8 Chloride 100 Carbon Dioxide 23.9 Anion Gap 14.1 H BUN 13 Creatinine 0.78 Estimated GFR/1.73 m2 >= 60.00 Glucose 90 Lactate Calcium 9.5 Magnesium 2.3 Total Bilirubin Conjugated Bilirubin AST ALT Alkaline Phosphatase C-Reactive Protein Total Protein Albumin Vancomycin Trough 16.6 08/15/18 08/15/18 08/15/18 17:49 17:50 Unknown WBC RBC Hgb Hct MCV MCH MCHC RDW Plt Count MPV Immature Gran % Neutrophils % Lymphocytes % Monocytes % Eosinophils % Basophils % Absolute Neutrophils Absolute Lymphocytes Absolute Monocytes Absolute Eosinophils Absolute Basophils ESR Cancelled Sodium Cancelled Potassium Cancelled Chloride Cancelled Carbon Dioxide Cancelled Anion Gap Cancelled BUN Cancelled Creatinine Cancelled Estimated GFR/1.73 m2 Cancelled Glucose Cancelled Lactate Cancelled Calcium Cancelled Magnesium Cancelled Total Bilirubin Cancelled Conjugated Bilirubin Cancelled AST Cancelled ALT Cancelled Alkaline Phosphatase Cancelled C-Reactive Protein Cancelled Total Protein Cancelled Albumin Cancelled Vancomycin Trough Last Vital Signs Temp 37.4 C 08/15/18 15:46 Pulse 95 H 08/15/18 15:46 Resp 15 08/15/18 15:46 BP 104/74 08/15/18 15:46 Pulse Ox 98 08/15/18 15:46
[2018-08-15] MEDS: Ibuprofen 600 MG TAB PO (18:57)
[2018-08-15 20:02] VITALS: BP 114/63; PULSE 95; RESP 19; TEMP 37.5; O2SAT 98
[2018-08-15] MEDS: Varenicline 1 MG TAB 0.5 MG PO (20:14)
[2018-08-16] VITALS (7 sets, daily range): BP systolic 100–125; BP diastolic 66–78; PULSE 71–91; RESP 16–20; TEMP 36–37.1; O2SAT 97–99
[2018-08-16] MEDS: Normal Saline Flush 10 ML SYR IVP ×2 (02:13→20:14)
[2018-08-16] MEDS: VANCOMYCIN 1,000 MG in Normal Saline 250 ML 167 MG IVPB (02:13)
--- NOTE | 2018-08-16 08:14 | PDOC.CMIN ---
Care Management Initial Assess REASON FOR HOSPITALIZATION:: Recurrent fevers in the setting of ongoing IV drug abuse with IV antibiotic treatment twice daily at [facility] infusion with vancomycin; continued concern about recurrent bacteremia and endocarditis. PAST MEDICAL HISTORY/PAST SURGICAL HISTORY:: Hepatitis C, Shoulder surgery, IV drug use. Currently 1/2 ppd cigarette use. On Chantix for smoking cessation. PREVIOUS FUNCTIONAL STATUS/SOCIAL/FAMILY SUPPORTS:: Kevin resides in [place], [place] with friends at this time. Kevin works at [employer] and states that he has worked for [employer] on and off for 17 years. Kevin is independent, he drives, and manages ADL's. He shares the mother of his two children (13,11), Delmy is a support and advocate for him. He has a car but not currently a license. He has Medicaid and pays child support. He reports feeling overwhelmed with bills and missing work due to medical needs. He struggles to remember things he likes to do, saying everything costs money. He reports playing soccer as a kid and enjoying watching television. He states he has no natural supports though his mother is listed in his demographic information. He states wanting to be a DNR/DNI. CURRENT FUNCTIONAL STATUS:: Kevin was lying in bed when CM met with him. He was freshly showered, smiling and pleasant in interaction. Has patient been provided with information about the portal?: No Did the patient sign up for the portal?: No CODE STATUS:: Full Code INSURANCE COVERAGE / FINANCIAL ISSUES:: Medicaid CURRENT HOME/COMMUNITY SERVICES/EQUIPMENT:: IV antibiotic treatment twice daily at [facility] infusion with vancomycin. He has been connected with MCKAYLA Espinoza RN. PRIMARY CARE PHYSICIAN:: Aileen Macias POTENTIAL DISCHARGE NEEDS:: Discharge planning central to [facility] for IV ABX-vs-home with resumption of infusion room and [facility]. Follow up appointment with PCP. PATIENT/FAMILY EDUCATION NEEDS:: Review of instructions, discharge considerations, Ask Me Three. ANTICIPATED BARRIERS TO DISCHARGE:: Recurrent fevers in the setting of bactremia, possible custodial IV ABX treatment. TRANSPORTATION:: Via private vehicle. PLAN:: Kevin will have a midline placed with the plan to continue vancomycin; per MD. Provider will consult with infectious disease at [facility]. CM will continue to follow and support Kevin and discharge planning as appropriate. Readmission - Within the Past 30 Days Yes or No: Y - Date of First Admission Date of 1st Admission: 07/18/18 ([facility] 07/26[facility]08[facility]) - Date of this Admission Date of Admission: 08/15/18 This admission was: Direct Admit - Office Visit Since 1st Admission Have you seen your PCP in the office since discharge?: Yes Date of PCP Appointment: 08/01/18, 08/15/18 Had an appointment Been Scheduled?: Yes Date of Scheduled Appointment: 08/01/18, 08/15/18 - Speicalist Appointments Have you seen any other specialist since your 1st Admission?: No - I. Interview patient and/or Family Difficulty reaching your doctor or getting an office appt?: No Have you had trouble purchasing/ or taking medication?: No Have you had trouble with getting meals at home?: No Did you feel ready for discharge when you left the last time: Yes Were services received that you thought were set up on disch: Yes Did you call your physician beore you came to the ED?: Yes Did your physician tell you to come in?: Yes (Direct Admit from PCP ) How do you think you became sick enough to come back?: Ongoing fever - Ask the Care Team Members: What do you think caused the patient to be readmitted: Fever documented with PCP Dr. Motta 08/15/18. - ED visits How many ED visits in the past 12 months: 7 - Assessment for Readmission Summary of readmission circumstances, based upon interviews: Per Kevin, he is re-admitted due to ongoing fevers and continued concern about recurrent bacteremia and endocarditis.
[2018-08-16] MEDS: Varenicline 1 MG TAB 0.5 MG PO ×2 (08:58→19:10)
--- NOTE | 2018-08-16 09:10 | INITIAL_ITS ---
Care Management Initial Assess REASON FOR HOSPITALIZATION:: Recurrent fevers in the setting of ongoing IV drug abuse with IV antibiotic treatment twice daily at [facility] infusion with vancomycin ; continued concern about recurrent bacteremia and endocarditis. PAST MEDICAL HISTORY/PAST SURGICAL HISTORY:: Hepatitis C, Shoulder surgery, IV drug use. Currently 1/2 ppd cigarette use. On Chantix for smoking cessation. PREVIOUS FUNCTIONAL STATUS/SOCIAL/FAMILY SUPPORTS:: Kevin resides in [place], [place] with friends at this time. Kevin works at [employer] and states that he has worked for [employer] on and off for 17 years. Kevin is independent, he drives, and manages ADL's. He shares the mother of his two children (13,11), Delmy is a support and advocate for him. He has a car but not currently a license. He has Medicaid and pays child support. He reports feeling overwhelmed with bills and missing work due to medical needs. He struggles to remember things he likes to do, saying everything costs money. He reports playing soccer as a kid and enjoying watching television. He states he has no natural supports though his mother is listed in his demographic information. He states wanting to be a DNR/DNI. CURRENT FUNCTIONAL STATUS:: Kevin was lying in bed when CM met with him. He was freshly showered, smiling and pleasant in interaction. Has patient been provided with information about the portal?: No Did the patient sign up for the portal?: No CODE STATUS:: Full Code INSURANCE COVERAGE / FINANCIAL ISSUES:: Medicaid CURRENT HOME/COMMUNITY SERVICES/EQUIPMENT:: IV antibiotic treatment twice daily at [facility] infusion with vancomycin. He has been connected with MCKAYLA Espinoza RN. PRIMARY CARE PHYSICIAN:: Aileen Macias POTENTIAL DISCHARGE NEEDS:: Discharge planning central to [facility] for IV ABX-vs- home with resumption of infusion room and [facility]. Follow up appointment with PCP. PATIENT/FAMILY EDUCATION NEEDS:: Review of instructions, discharge considerations, Ask Me Three. ANTICIPATED BARRIERS TO DISCHARGE:: Recurrent fevers in the setting of bactremia , possible vermin exterminator IV ABX treatment. TRANSPORTATION:: Via private vehicle. PLAN:: Kevin will have a midline placed with the plan to continue vancomycin; per MD. Provider will consult with infectious disease at [facility]. CM will continue to follow and support Kevin and discharge planning as appropriate. Readmission - Within the Past 30 Days Yes or No: Y - Date of First Admission Date of 1st Admission: 07/18/18 ([facility] 07/26[facility]08[facility]) - Date of this Admission Date of Admission: 08/15/18 This admission was: Direct Admit - Office Visit Since 1st Admission Have you seen your PCP in the office since discharge?: Yes Date of PCP Appointment: 08/01/18, 08/15/18 Had an appointment Been Scheduled?: Yes Date of Scheduled Appointment: 08/01/18, 08/15/18 - Speicalist Appointments Have you seen any other specialist since your 1st Admission?: No - I. Interview patient and/or Family Difficulty reaching your doctor or getting an office appt?: No Have you had trouble purchasing/ or taking medication?: No Have you had trouble with getting meals at home?: No Did you feel ready for discharge when you left the last time: Yes Were services received that you thought were set up on disch: Yes Did you call your physician beore you came to the ED?: Yes Did your physician tell you to come in?: Yes (Direct Admit from PCP ) How do you think you became sick enough to come back?: Ongoing fever - Ask the Care Team Members: What do you think caused the patient to be readmitted: Fever documented with PCP Dr. Motta 08/15/18. - ED visits How many ED visits in the past 12 months: 7 - Assessment for Readmission Summary of readmission circumstances, based upon interviews: Per Kevin, he is re-admitted due to ongoing fevers and continued concern about recurrent bacteremia and endocarditis.
[2018-08-16 11:04] LABS: Abs Immature Grans 0.06 k/cumm (0.0-0.09); Absolute Basophil Count 0.02 k/cumm (0.0-0.2); Absolute Eosinophil Count 0.57 k/cumm (0.0-0.7); Absolute Lymphocyte Count 1.03 k/cumm (1.2-3.4); Absolute Monocyte Count 0.93 k/cumm (0.11-0.7); Absolute Neutrophil Count 4.92 k/cumm (1.2-6.7); Basophils % 0.3; Eosinophils % 7.6; HCT 39.5 % (40.0-50.0); HGB 13.8 g/dL (13.5-17.5); Immature Grans % 0.8; Lymphocytes % 13.7; Mean Corp. HGB Concentration 34.9 g/dL (32.0-36.0); Mean Corpuscular Hemoglobin 30.3 pg (27.0-33.0); Mean Corpuscular Volume 86.8 fL (80-95); Mean Platelet Volume 9.4 fL (8.0-11.0); Monocytes % 12.4; Neutrophils % 65.2; Platelet Count 370 x1000/uL (130-400); RBC 4.55 m/cumm (4.50-6.00); RBC Distribution Width 13.8 % (11.8-14.1); White Blood Cell Count 7.53 k/cumm (4.4-10.8)
[2018-08-16 11:12] LABS: Magnesium 2.3 mg/dL (1.8-2.4)
[2018-08-16 11:15] LABS: Anion Gap 9.5 mmol/L (3-11); BUN 16 mg/dL (7-18); C-Reactive Protein 1.17 mg/dL (0.0-0.3); CO2 27.5 mmol/L (21.0-32.0); CREATININE 0.72 mg/dL (0.70-1.30); Calcium 9.5 mg/dL (8.5-10.1); Chloride 101 mmol/L (98-107); Glucose 96 mg/dL (70-100); Potassium 4.1 mmol/L (3.5-5.1); Sodium 138 mmol/L (136-145)
[2018-08-16 11:19] LABS: ALT 206 U/L (12-78); AST 93 U/L (15-37); Albumin 3.7 g/dL (3.4-5.0); Alkaline Phosphatase 174 U/L (46-116); Bilirubin, Direct 0.13 mg/dL (0.00-0.20); Bilirubin, Total 0.5 mg/dL (0.2-1.0)
[2018-08-16] MEDS: VANCOMYCIN 1,000 MG in Normal Saline 250 ML 166.667 MG IVPB ×2 (11:30→20:13)
[2018-08-16 11:38] LABS: ESR 79 MM/HR (0-15)
--- NOTE | 2018-08-16 12:50 | W.PM.PROGNOT ---
Assessment and Plan (1) Bacteremia: Current visit: No Status: Acute Recurrent reported fevers in the setting of ongoing IV drug abuse with IV antibiotic treatment with vancomycin. There is continued concern about recurrent bacteremia and endocarditis. Plan to continue vancomycin. Consult with infectious disease at [facility] for further management recommendations. Repeat blood cultures are currently pending. No leukocytosis. CRP is mildly elevated, however, it is improved from admission. Sed rate elevated at 79. Midline placed due to poor venous access. Continue to monitor blood cultures. Continue to monitor labs. If blood cultures revealed no growth, consider discharge with continued outpatient IV antibiotic therapy. (2) IV drug abuse: Current visit: No Status: Acute Continued IV drug abuse despite treatment for bacteremia suspected endocarditis with IV vancomycin. Continue to discuss abstinence and consider options to help him maintain abstinence from IV drug use. (3) DVT prophylaxis: Current visit: Yes Status: Acute Lovenox ordered, patient has refused. (4) Discharge planning issues: Current visit: No Status: Acute He is a full code. This case was discussed with Dr. Chase who is in agreement. Subjective Interval history since last seen: Kevin Paulino is a 43-year-old male with a history of IV drug abuse who has recently been admitted to an [facility] on 2 occasions for bacteremia, suspected endocarditis. He had been receiving IV Vanco BID through the infusion room here at [facility]. He continued to use IV drugs with both clean and dirty needles after his most recent discharge. He continued to have subjective fevers, chills and sweats every night following his discharge. He presented back to his PCP office yesterday, 08/15/18 where he was noted to have a temperature of 100.2. His original blood cultures dated 07/13/18 grew Microbacterium. His follow up blood cultures have yielded no growth, except one dated 07/26/18 which grew gram positive rods, possibly a contaminant. He currently has blood cultures pending. He has been afebrile here at the hospital. Today, he reports feeling hot and cold, he has been afebrile. He continues to report a headache. He has no chest pain, palpitations, no shortness of breath, no coughing or wheezing. He is eating and drinking and tolerating a regular diet without nausea, vomiting or diarrhea. He verbalizes no other concerns. Exam Const General: cooperative Nutritional Appearance: thin Orientation: alert, awake and oriented x3 HENMT Head: normocephalic and atraumatic Mouth: moist mucous membranes Eyes Conjunctivae: conjunctivae normal (Noninjected) Sclera: sclerae normal (Nonicteric) Neck Neck: supple and no JVD Resp Effort & Inspection: normal respiratory effort Auscultation: clear to auscultation bilaterally, no rales, no rhonchi and no wheezes Cardio Rate: regular rate and not tachycardic Rhythm: regular rhythm Heart Sounds: S1 normal, S2 normal and no murmurs Pulses: normal peripheral pulses GI Palpation: soft, no masses and nontender Auscultation: normal bowel sounds Skin General skin exam: other (Injection sites noted on left upper extremity at the level of the antecubital fossa medially, healing well with no signs of infection, no erythema, no drainage.) Neuro General: moves all extremities and no focal motor deficits Speech: speech normal Extrem General: no clubbing, cyanosis or edema Objective Objective Clinical Data: Abnormal lab results 08/15/18 08/15/18 08/15/18 Range/Units 15:49 15:49 15:49 RBC (4.50-6.00) m/cumm Hgb (13.5-17.5) g/dL Hct (40.0-50.0) % Absolute Lymphocytes (1.2-3.4) k/cumm Absolute Monocytes (0.11-0.7) k/cumm ESR 63 H (0-15) MM/HR Anion Gap (3-11) mmol/L AST 73 H (15-37) U/L ALT 169 H (12-78) U/L Alkaline Phosphatase 164 H (46-116) U/L C-Reactive Protein 1.33 H (0.0-0.3) mg/dL 08/15/18 08/15/18 08/16/18 Range/Units 15:49 15:49 10:50 RBC 4.32 L (4.50-6.00) m/cumm Hgb 12.9 L (13.5-17.5) g/dL Hct 37.3 L (40.0-50.0) % Absolute Lymphocytes 0.80 L (1.2-3.4) k/cumm Absolute Monocytes 0.83 H (0.11-0.7) k/cumm ESR (0-15) MM/HR Anion Gap 14.1 H (3-11) mmol/L AST (15-37) U/L ALT (12-78) U/L Alkaline Phosphatase (46-116) U/L C-Reactive Protein 1.17 H (0.0-0.3) mg/dL 08/16/18 08/16/18 08/16/18 Range/Units 10:50 10:50 10:50 RBC (4.50-6.00) m/cumm Hgb (13.5-17.5) g/dL Hct 39.5 L (40.0-50.0) % Absolute Lymphocytes 1.03 L (1.2-3.4) k/cumm Absolute Monocytes 0.93 H (0.11-0.7) k/cumm ESR 79 H (0-15) MM/HR Anion Gap (3-11) mmol/L AST 93 H (15-37) U/L ALT 206 H (12-78) U/L Alkaline Phosphatase 174 H (46-116) U/L C-Reactive Protein (0.0-0.3) mg/dL Vital Signs Temperature 36.4 C L 08/16/18 07:30 Temperature Source Tympanic 08/16/18 07:30 Pulse 76 08/16/18 07:30 Pulse Rhythm Regular 08/16/18 09:15 Respiratory Rate 16 08/16/18 07:30 Respiratory Effort 08/16/18 09:15 Respiratory Depth Normal 08/16/18 09:15 Respiratory Pattern Normal 08/16/18 09:15 Blood Pressure 110/70 08/16/18 07:30 Pulse Oximetry 99 08/16/18 07:30 Oxygen Delivery Method Room Air 08/16/18 07:30 Oxygen Flow Rate 0 08/16/18 07:30 Pain Level 0 08/16/18 04:15 Comment 08/16/18 04:15 Intake & Output 08/15/18 08/16/18 08/16/18 23:59 11:59 23:59 Intake Total 1020 / 1020 960 / 960 Balance 1020 / 1020 960 / 960 Weight 62.7 kg 62.5 kg Intake: IV 250 / 250 250 / 250 Oral 770 / 770 710 / 710 Other: Urine Appearance Clear Laboratory Results WBC 7.53 k/cumm (4.4-10.8) 08/16/18 10:50 RBC 4.55 m/cumm (4.50-6.00) 08/16/18 10:50 Hgb 13.8 g/dL (13.5-17.5) 08/16/18 10:50 Hct 39.5 % (40.0-50.0) L 08/16/18 10:50 MCV 86.8 fL (80-95) 08/16/18 10:50 MCH 30.3 pg (27.0-33.0) 08/16/18 10:50 MCHC 34.9 g/dL (32.0-36.0) 08/16/18 10:50 RDW 13.8 % (11.8-14.1) 08/16/18 10:50 Plt Count 370 x1000/uL (130-400) 08/16/18 10:50 MPV 9.4 fL (8.0-11.0) 08/16/18 10:50 Immature Gran % 0.8 08/16/18 10:50 Neutrophils % 65.2 08/16/18 10:50 Lymphocytes % 13.7 08/16/18 10:50 Monocytes % 12.4 08/16/18 10:50 Eosinophils % 7.6 08/16/18 10:50 Basophils % 0.3 08/16/18 10:50 Absolute Neutrophils 4.92 k/cumm (1.2-6.7) 08/16/18 10:50 Band Neutrophils Cancelled 08/15/18 17:50 Absolute Lymphocytes 1.03 k/cumm (1.2-3.4) L 08/16/18 10:50 Absolute Monocytes 0.93 k/cumm (0.11-0.7) H 08/16/18 10:50 Absolute Eosinophils 0.57 k/cumm (0.0-0.7) 08/16/18 10:50 Absolute Basophils 0.02 k/cumm (0.0-0.2) 08/16/18 10:50 Metamyelocytes Cancelled 08/15/18 17:50 Myelocytes Cancelled 08/15/18 17:50 Promyelocytes Cancelled 08/15/18 17:50 Nucleated RBCs Cancelled 08/15/18 17:50 Differential Comment Cancelled 08/15/18 17:50 Atypical Lymphocytes Cancelled 08/15/18 17:50 Other Cell Type Cancelled 08/15/18 17:50 RBC Morphology Cancelled 08/15/18 17:50 Polychromasia Cancelled 08/15/18 17:50 Hypochromasia Cancelled 08/15/18 17:50 Poikilocytosis Cancelled 08/15/18 17:50 Basophilic Stippling Cancelled 08/15/18 17:50 Anisocytosis Cancelled 08/15/18 17:50 Microcytosis Cancelled 08/15/18 17:50 Macrocytosis Cancelled 08/15/18 17:50 Spherocytes Cancelled 08/15/18 17:50 Target Cells Cancelled 08/15/18 17:50 Tear Drop Cells Cancelled 08/15/18 17:50 Ovalocytes Cancelled 08/15/18 17:50 Stomatocytes Cancelled 08/15/18 17:50 [place] Bodies Cancelled 08/15/18 17:50 [place] Cells Cancelled 08/15/18 17:50 Acanthocytes (Spur) Cancelled 08/15/18 17:50 Schistocytes Cancelled 08/15/18 17:50 ESR 79 MM/HR (0-15) H 08/16/18 10:50 Sodium 138 mmol/L (136-145) 08/16/18 10:50 Potassium 4.1 mmol/L (3.5-5.1) 08/16/18 10:50 Chloride 101 mmol/L (98-107) 08/16/18 10:50 Carbon Dioxide 27.5 mmol/L (21.0-32.0) 08/16/18 10:50 Anion Gap 9.5 mmol/L (3-11) 08/16/18 10:50 BUN 16 mg/dL (7-18) 08/16/18 10:50 Creatinine 0.72 mg/dL (0.70-1.30) 08/16/18 10:50 Estimated GFR/1.73 m2 >= 60.00 (mL/min/1.73m2) 08/16/18 10:50 Glucose 96 mg/dL (70-100) 08/16/18 10:50 Lactate Cancelled 08/15/18 Unknown Calcium 9.5 mg/dL (8.5-10.1) 08/16/18 10:50 Magnesium 2.3 mg/dL (1.8-2.4) 08/16/18 10:50 Total Bilirubin 0.5 mg/dL (0.2-1.0) 08/16/18 10:50 Conjugated Bilirubin 0.13 mg/dL (0.00-0.20) 08/16/18 10:50 AST 93 U/L (15-37) H 08/16/18 10:50 ALT 206 U/L (12-78) H 08/16/18 10:50 Alkaline Phosphatase 174 U/L (46-116) H 08/16/18 10:50 C-Reactive Protein 1.17 mg/dL (0.0-0.3) H 08/16/18 10:50 Total Protein 8.0 g/dL (6.4-8.2) 08/16/18 10:50 Albumin 3.7 g/dL (3.4-5.0) 08/16/18 10:50 Vancomycin Trough 16.6 ug/mL (10.0-20.0) 08/15/18 15:49
--- NOTE | 2018-08-16 14:22 | PHARADMIT ---
Addendum entered by Lamin Vega III 08/18/18 11:15: Pharmacy Note Subjective Recurrent fevers in setting of ongoing IV drug abuse. Objective OK- VS, Lytes-OK SCr-0.77 H&H,Plts-OK, Assessment Vancomycin level at 11am , will evaluate and adjust dose accordingly. Plan Swing Bed later today...To continue Vancomycin until end august. Original Note: Addendum entered by Asha Arriaga 08/17/18 14:57: Pharmacy Note Subjective Objective Vs ok, afebrile Assessment Micro no growth x24h Plan Vanco trough ordered for Tuesday Unsure at this time if he will convert back to infusion room treatment as outpt or stay as Swingbed through august Original Note: Admission Pharmacy Clinical Review FEVERS, Endocarditis, (needs Midline) Code Status Full Code Current Weight Wgt-62.5 kg Renally Cleared and Narrow Therapeutic Index Meds CrCl~ 105 mL/min Meds-OK QTc Value / Action Taken NA BP Control, Fever BP- 110/70 Tmax-37.5C Electrolytes reviewed Na- 138 K+4.1 Mag-2.3 DVT Prophylaxis Lovenox Opiate Usage / Scheduled Bowel Regimen Ordered No No Plt/SCr for Heparin / Enoxaparin Plts- 370 SCr- 0.72 INR for Warfarin na H/H stable, WBC/Bands H&H- 13.8/39.5 WBC- 7.53 Antibiotic appropriateness Vancomycin Cultures and Sensitivities Blood-pending Surgical ABX d/c within 24 hr na DM control / Insulin Dosing BG-96 Heart Failure (Check EF%) (NEIL's, B-Block, Diuretics) none IV to PO Switch No Home Meds Reviewed Yes Home Meds Not Ordered Ordered Comments Vancomycin Trough 16.6 (08/15)
[2018-08-16] MEDS: Ibuprofen 600 MG TAB PO (22:10)
[2018-08-17] MEDS: Normal Saline Flush 10 ML SYR IVP ×4 (04:24→21:14)
[2018-08-17 04:26] VITALS: BP 113/76; PULSE 75; RESP 20; TEMP 36.3; O2SAT 97
[2018-08-17] MEDS: VANCOMYCIN 1,000 MG in Normal Saline 250 ML 167 MG IVPB ×3 (04:26→19:23)
[2018-08-17 07:45] VITALS: BP 116/78; PULSE 62; RESP 17; TEMP 36.2; O2SAT 97
[2018-08-17] MEDS: Varenicline 1 MG TAB 0.5 MG PO ×2 (08:03→19:23)
[2018-08-17 10:02] VITALS: TEMP 36.4
[2018-08-17] MEDS: Ibuprofen 600 MG TAB PO ×2 (10:02→16:10)
--- NOTE | 2018-08-17 10:16 | PDOC.CMPRO ---
Care Management Progress Note S/O-Met with Kevin today. He is lying in bed in darkened room. He states he thinks he would prefer to stay at [facility] for care if he needs continued IV tid. He now was midline and is receiving IV ABX tid. If he is to go home, he wants to go back to work and come in to infusion as before. He worries about his bills. Advised him that Marielle had already sent referrals to [facility] and [facility], but he would need to see them on OP basis. Case discussed with Fabby MORENO. She will discuss further with ID to determine further course of RX. A-43 yo man admitted with recurrent fevers. P-Continue to follow to assist with plans to determine whether he will continue OP IV Abx vs staying at [facility] for SB1 until end of course of RX.
[2018-08-17 11:26] VITALS: BP 132/82; PULSE 100; RESP 18; TEMP 37.2; O2SAT 99
[2018-08-17 11:38] LABS: HIV-1/2 Ag & Ab Screen Negative (NEGAT)
--- NOTE | 2018-08-17 13:34 | CMPROGNOTE_ITS ---
Care Management Progress Note S/O-Met with Kevin today. He is lying in bed in darkened room. He states he thinks he would prefer to stay at [facility] for care if he needs continued IV tid. He now was midline and is receiving IV ABX tid. If he is to go home, he wants to go back to work and come in to infusion as before. He worries about his bills. Advised him that Marielle had already sent referrals to [facility] and [facility], but he would need to see them on OP basis. Case discussed with Fabby MORENO. She will discuss further with ID to determine further course of RX. A-43 yo man admitted with recurrent fevers. P-Continue to follow to assist with plans to determine whether he will continue OP IV Abx vs staying at [facility] for SB1 until end of course of RX.
[2018-08-17 15:45] VITALS: BP 108/72; PULSE 90; RESP 20; TEMP 37.4; O2SAT 97
--- NOTE | 2018-08-17 16:21 | W.PM.PROGNOT ---
Assessment and Plan (1) Fever: Current visit: Yes Status: Acute Recurrent fevers in the setting of ongoing IV drug abuse with IV antibiotic treatment with vancomycin. There is continued concern about recurrent bacteremia and endocarditis. Plan to continue vancomycin. His repeat blood cultures have yielded no growth at 24 hours. Continue to monitor blood cultures. Continue to monitor for fevers. Consider transitioning to swing bed for ongoing IV antibiotics. (2) Tobacco abuse: Current visit: No Status: Acute Continue Chantix and as needed nicotine replacement. (3) DVT prophylaxis: Current visit: Yes Status: Acute Lovenox ordered. He continues to refuse lovenox. He is ambulating frequently. (4) Discharge planning issues: Current visit: No Status: Acute He is a full code. This case was discussed with Dr. Chase who is in agreement. Subjective Interval history since last seen: Kevin Paulino is a 43-year-old male with a history of IV drug abuse who has recently been admitted to an [facility] on 2 occasions for bacteremia, suspected endocarditis. He had been receiving IV Vanco BID through the infusion room here at [facility]. He continued to use IV drugs with both clean and dirty needles after his most recent discharge. He continued to have subjective fevers, chills and sweats every night following his discharge. He presented back to his primary care provider's office again on 08/15/2018 where he was noted to have a temperature of 100.2. His PCP contacted the hospitalist for direct admission.His original blood cultures dated 07/13/18 grew Microbacterium. His follow up blood cultures have yielded no growth, except one dated 07/26/18 which grew gram positive rods, possibly a contaminant. He did have repeat blood cultures on admission which have yielded no growth at 24 hours. He has remained afebrile while here at the hospital. Today, he continues to report a headache, ibuprofen helps. He denies any chest pain, pressures or palpitations. He denies shortness of breath, coughing or wheezing. He is eating and drinking and tolerating his regular diet without nausea, vomiting or diarrhea. Care management discussed the possibility of swing bed with him. He is agreeable to transitioning to a swing bed status for IV antibiotics. As an outpatient he was receiving Vanco twice daily. Pharmacy is currently dosing his Vanco and he is receiving it every 8 hours. Exam Const General: cooperative (pleasant.), comfortable (He is sitting up in bed watching TV.) and no acute distress Nutritional Appearance: thin Orientation: alert, awake and oriented x3 HENMT Head: normocephalic and atraumatic Mouth: moist mucous membranes Eyes Conjunctivae: conjunctivae normal (Noninjected) Sclera: sclerae normal (Nonicteric) Neck Neck: supple and no JVD Resp Effort & Inspection: normal respiratory effort Auscultation: clear to auscultation bilaterally, no rales, no rhonchi and no wheezes Cardio Rate: regular rate and not tachycardic Rhythm: regular rhythm Heart Sounds: S1 normal, S2 normal, no gallops, no murmurs and no rubs Pulses: normal peripheral pulses GI Palpation: soft, no masses and nontender Auscultation: normal bowel sounds Skin General skin exam: other (Injection sites noted on left upper extremity at the level of the antecubital fossa medially, healing well with no signs of infection, no erythema, no drainage.) Neuro General: moves all extremities and no focal motor deficits Speech: speech normal Extrem General: no clubbing, cyanosis or edema Objective Objective Clinical Data: Vital Signs Temperature 37.2 C 08/17/18 11:26 Temperature Source Tympanic 08/17/18 11:26 Pulse 100 H 08/17/18 11:26 Pulse Rhythm Regular 08/17/18 07:55 Respiratory Rate 18 08/17/18 11:26 Respiratory Effort 08/17/18 07:55 Respiratory Depth Normal 08/17/18 07:55 Respiratory Pattern Normal 08/17/18 07:55 Blood Pressure 132/82 08/17/18 11:26 Pulse Oximetry 99 08/17/18 11:26 Oxygen Delivery Method Room Air 08/17/18 11:26 Oxygen Flow Rate 0 08/17/18 11:26 Pain Level 3 08/17/18 11:26 Comment 08/16/18 04:15 Intake & Output 08/16/18 08/17/18 08/17/18 23:59 11:59 23:59 Intake Total 1470 / 1470 740 / 740 730 / 730 Balance 1470 / 1470 740 / 740 730 / 730 Weight 62.4 kg Intake: IV 250 / 250 250 / 250 250 / 250 Oral 1220 / 1220 490 / 490 480 / 480 Other: Comment voided aND FLUSHED Stool Size Moderate Stool Characteristics Soft Voiding Methods Toilet Laboratory Results WBC 7.53 k/cumm (4.4-10.8) 08/16/18 10:50 RBC 4.55 m/cumm (4.50-6.00) 08/16/18 10:50 Hgb 13.8 g/dL (13.5-17.5) 08/16/18 10:50 Hct 39.5 % (40.0-50.0) L 08/16/18 10:50 MCV 86.8 fL (80-95) 08/16/18 10:50 MCH 30.3 pg (27.0-33.0) 08/16/18 10:50 MCHC 34.9 g/dL (32.0-36.0) 08/16/18 10:50 RDW 13.8 % (11.8-14.1) 08/16/18 10:50 Plt Count 370 x1000/uL (130-400) 08/16/18 10:50 MPV 9.4 fL (8.0-11.0) 08/16/18 10:50 Immature Gran % 0.8 08/16/18 10:50 Neutrophils % 65.2 08/16/18 10:50 Lymphocytes % 13.7 08/16/18 10:50 Monocytes % 12.4 08/16/18 10:50 Eosinophils % 7.6 08/16/18 10:50 Basophils % 0.3 08/16/18 10:50 Absolute Neutrophils 4.92 k/cumm (1.2-6.7) 08/16/18 10:50 Band Neutrophils Cancelled 08/15/18 17:50 Absolute Lymphocytes 1.03 k/cumm (1.2-3.4) L 08/16/18 10:50 Absolute Monocytes 0.93 k/cumm (0.11-0.7) H 08/16/18 10:50 Absolute Eosinophils 0.57 k/cumm (0.0-0.7) 08/16/18 10:50 Absolute Basophils 0.02 k/cumm (0.0-0.2) 08/16/18 10:50 Metamyelocytes Cancelled 08/15/18 17:50 Myelocytes Cancelled 08/15/18 17:50 Promyelocytes Cancelled 08/15/18 17:50 Nucleated RBCs Cancelled 08/15/18 17:50 Differential Comment Cancelled 08/15/18 17:50 Atypical Lymphocytes Cancelled 08/15/18 17:50 Other Cell Type Cancelled 08/15/18 17:50 RBC Morphology Cancelled 08/15/18 17:50 Polychromasia Cancelled 08/15/18 17:50 Hypochromasia Cancelled 08/15/18 17:50 Poikilocytosis Cancelled 08/15/18 17:50 Basophilic Stippling Cancelled 08/15/18 17:50 Anisocytosis Cancelled 08/15/18 17:50 Microcytosis Cancelled 08/15/18 17:50 Macrocytosis Cancelled 08/15/18 17:50 Spherocytes Cancelled 08/15/18 17:50 Target Cells Cancelled 08/15/18 17:50 Tear Drop Cells Cancelled 08/15/18 17:50 Ovalocytes Cancelled 08/15/18 17:50 Stomatocytes Cancelled 08/15/18 17:50 [place] Bodies Cancelled 08/15/18 17:50 [place] Cells Cancelled 08/15/18 17:50 Acanthocytes (Spur) Cancelled 08/15/18 17:50 Schistocytes Cancelled 08/15/18 17:50 ESR 79 MM/HR (0-15) H 08/16/18 10:50 Sodium 138 mmol/L (136-145) 08/16/18 10:50 Potassium 4.1 mmol/L (3.5-5.1) 08/16/18 10:50 Chloride 101 mmol/L (98-107) 08/16/18 10:50 Carbon Dioxide 27.5 mmol/L (21.0-32.0) 08/16/18 10:50 Anion Gap 9.5 mmol/L (3-11) 08/16/18 10:50 BUN 16 mg/dL (7-18) 08/16/18 10:50 Creatinine 0.72 mg/dL (0.70-1.30) 08/16/18 10:50 Estimated GFR/1.73 m2 >= 60.00 (mL/min/1.73m2) 08/16/18 10:50 Glucose 96 mg/dL (70-100) 08/16/18 10:50 Lactate Cancelled 08/15/18 Unknown Calcium 9.5 mg/dL (8.5-10.1) 08/16/18 10:50 Magnesium 2.3 mg/dL (1.8-2.4) 08/16/18 10:50 Total Bilirubin 0.5 mg/dL (0.2-1.0) 08/16/18 10:50 Conjugated Bilirubin 0.13 mg/dL (0.00-0.20) 08/16/18 10:50 AST 93 U/L (15-37) H 08/16/18 10:50 ALT 206 U/L (12-78) H 08/16/18 10:50 Alkaline Phosphatase 174 U/L (46-116) H 08/16/18 10:50 C-Reactive Protein 1.17 mg/dL (0.0-0.3) H 08/16/18 10:50 Total Protein 8.0 g/dL (6.4-8.2) 08/16/18 10:50 Albumin 3.7 g/dL (3.4-5.0) 08/16/18 10:50 Vancomycin Trough 16.6 ug/mL (10.0-20.0) 08/15/18 15:49 HIV 1&2 Ag/Ab, 4th Gen Negative (NEGAT) 08/16/18 10:50
[2018-08-17 19:27] VITALS: BP 112/76; PULSE 84; RESP 16; TEMP 36.7; O2SAT 96
[2018-08-17] MEDS: Cyclobenzaprine 10 MG TAB PO (21:02)
[2018-08-18 04:22] VITALS: BP 107/63; PULSE 71; RESP 15; TEMP 36.4; O2SAT 98
[2018-08-18] MEDS: Normal Saline Flush 10 ML SYR IVP ×2 (04:23→11:36)
[2018-08-18] MEDS: VANCOMYCIN 1,000 MG in Normal Saline 250 ML 167 MG IVPB ×2 (04:24→11:36)
[2018-08-18 07:21] LABS: HCT 40.6 % (40.0-50.0); Mean Corp. HGB Concentration 34.5 g/dL (32.0-36.0); Mean Corpuscular Volume 87.1 fL (80-95); Mean Platelet Volume 9.5 fL (8.0-11.0); Platelet Count 358 x1000/uL (130-400); RBC 4.66 m/cumm (4.50-6.00); RBC Distribution Width 14.3 % (11.8-14.1); White Blood Cell Count 6.54 k/cumm (4.4-10.8)
[2018-08-18 07:30] VITALS: BP 125/74; PULSE 95; RESP 20; TEMP 37.2; O2SAT 99
[2018-08-18 07:36] LABS: ALT 265 U/L (12-78); AST 103 U/L (15-37); Albumin 3.4 g/dL (3.4-5.0); Alkaline Phosphatase 176 U/L (46-116); Anion Gap 9.5 mmol/L (3-11); BUN 18 mg/dL (7-18); Bilirubin, Total 0.5 mg/dL (0.2-1.0); CO2 25.5 mmol/L (21.0-32.0); CREATININE 0.77 mg/dL (0.70-1.30); Calcium 8.6 mg/dL (8.5-10.1); Chloride 105 mmol/L (98-107); Glucose 98 mg/dL (70-100); Potassium 4.3 mmol/L (3.5-5.1); Sodium 140 mmol/L (136-145); Total Protein 7.3 g/dL (6.4-8.2)
[2018-08-18 07:40] VITALS: O2SAT 99
[2018-08-18] MEDS: Varenicline 1 MG TAB 0.5 MG PO (08:00)
[2018-08-18] MEDS: Cyclobenzaprine 10 MG TAB PO (08:11)
[2018-08-18] MEDS: Ibuprofen 600 MG TAB PO (08:11)
[2018-08-18 11:20] VITALS: BP 136/79; PULSE 74; RESP 16; TEMP 37; O2SAT 99
[2018-08-18 11:39] LABS: C-Reactive Protein 0.76 mg/dL (0.0-0.3)
[2018-08-18 11:39] LABS: Vancomycin, Trough 17.1 ug/mL (10.0-20.0)
[2018-08-18 11:41] LABS: ESR 55 MM/HR (0-15)
--- NOTE | 2018-08-18 14:36 | DI.US_ITS ---
SYMPTOMS/DIAGNOSIS: HEPATITIS C, FEVERS ABDOMINAL ULTRASOUND: Comparison is made with CT dated July,. The liver is enlarged the length of 19.5 cm. The liver echogenicity appears normal. No focal liver lesions are seen. The gallbladder has a normal appearance. No gallstones or gallbladder wall thickening is present. The spleen appears prominent in size, unchanged from the previous CT. The kidneys, pancreas and aorta are unremarkable. IMPRESSION: Mild hepatosplenomegaly. No evidence of focal liver lesion.
--- NOTE | 2018-08-18 15:25 | W.PM.DS.N ---
Date of service: 08/18/18 Time of Service: 15:25 DS: Diagnosis Discharge Diagnosis (1) Fever: Status: Acute (2) Tobacco abuse: Status: Acute (3) DVT prophylaxis: Status: Acute (4) Discharge planning issues: Status: Acute (5) Vitiligo: Status: Acute (6) Endocarditis: Status: Acute (7) Hepatitis C antibody test positive: Status: Acute (8) Bacteremia: Status: Acute (9) IV drug abuse: Status: Acute Discharge Plan Disposition Patient Disposition: [facility] SWING BED LEVEL 1 Condition: Good Discharge Details Reason For Visit: FEVERS Admit Date/Time: 08/15/18 15:30 Admit Provider: Monae Chase Attending Provider: Monae Chase Primary Care Provider: Aileen Macias Hospital Course Hospital Course: Kevin Paulino is a 43-year-old male with a history of IV drug abuse who has recently been admitted to [facility] for bacteremia, suspected endocarditis. He was first admitted on 07/18/18 to 07/20/18, at that time he had over a month history of shaking chills and fevers. He had been seen prior to this visit in the emergency department been recommended for admission for Microbacterium bacteremia and declined twice. Eventually he was admitted on 07/18/2018 after being referred from his primary care provider's office. He was admitted to [facility] at that time and empirically treated with IV vancomycin. He did have repeat blood cultures drawn on 07/26/2018 which grew gram-positive rods. This was originally thought to be a contaminant however, there is a possibility that this culture represented microbacterium as microbacterium is a gram-positive mey. He was eager for discharge at that time. Infectious disease at [facility] was consulted and recommended daptomycin once daily which he received from his discharge on 07/20/2018 until he was readmitted on 07/26/2018. He went on to use IV drugs after his discharge. He went back to his primary care provider office with continued fevers and shakes. At that time Dr. Motta felt that this represented failure of the outpatient antibiotic regimen. He was then directly admitted again from his primary care provider office on 07/26/2018. There was concern for recurrent bacteremia, at that time he was restarted on the IV vancomycin which appeared to have been appropriate on his previous admission. He went on to have a TTE and a SUMMER which were both negative for endocarditis. Again, he was eager for discharge and agreed to a total of 6 weeks of IV vancomycin as an outpatient. However, on 08/15/18 he presented to his primary care provider office again reporting fevers and shakes every night since he was discharged on August 07, 2018. He had been diaphoretic with these episodes and he also reported headaches, some nausea, no vomiting, no diarrhea. He also reported mild chest discomfort earlier that day without palpitations. He did admit to using IV drugs after his discharge on August 07 and August 08. He used a clean needle the first time. He did not use a clean needle on another occasion since discharge. He was again admitted to the [facility] floor for IV antibiotics for ongoing treatment of bacteremia. During this admission he has had no recurrence of fevers. A phone call was placed to infectious disease who agreed that the patient may have had fevers as an outpatient due to twice daily dosing and now that the patient is on 3 times daily dosing he is no longer febrile. Given the repeated admissions, it has been determined that it would be best for the patient to be transition to a swing bed status and continue IV vancomycin at current dosing until the antibiotic course is complete. The 6 weeks of IV vancomycin and date is 09/06/2018. He is transitioned today from acute care to swing bed level 1 for IV antibiotics. Home Meds and New Rx's Prescriptions: No Action ibuprofen [IBU] 600 mg Tablet 600 mg PO QID PRN PRN (Reason: pain) Qty: 60 RF: 0 varenicline [Chantix] 1 mg Tablet 0.5 mg PO DAILY Qty: 56 RF: 0 Discharge Instructions Activity:: Activity as Tolerated Equipment/Supplies:: No Equipment Needed Diet:: As Tolerated Discharge Orders Discharge Orders: Discharge Order (Routine); Ordered 08/18/18 Ordered By: Fabby Baker Exam Narrative Exam Narrative: General: He is awake, alert and oriented. He is pleasant and cooperative. He is sitting up in bed watching the television. HEENT: Normocephalic, atraumatic. Pupils are equal and round, EOMs intact. Sclera are nonicteric, conjunctiva noninjected. Neck: supple, no JVD. Cardiovascular: HRR, no murmur, clicks, gallops or rubs. Nontacycardic. Respiratory: respirations even and unlabored. LSCTA throughout. GI: abdomen soft, nontender on palpation with normoactive BS throughout. Extremities: well perfused without clubbing, cyanosis or edema. DS: Data Vitals/I&O Vitals and I&O: Vital Signs Temperature 37 C 08/18/18 11:20 Temperature Source Tympanic 08/18/18 11:20 Pulse 74 08/18/18 11:20 Pulse Rhythm Regular 08/18/18 08:01 Respiratory Rate 16 08/18/18 11:20 Respiratory Effort 08/18/18 08:01 Respiratory Depth Normal 08/18/18 08:01 Respiratory Pattern Normal 08/18/18 08:01 Blood Pressure 136/79 08/18/18 11:20 Pulse Oximetry 99 08/18/18 11:20 Oxygen Delivery Method Room Air 08/18/18 11:20 Oxygen Flow Rate 0 08/18/18 11:20 Pain Level 4 08/18/18 08:11 Comment 08/16/18 04:15 Intake & Output 08/17/18 08/18/18 08/18/18 23:59 11:59 23:59 Intake Total 1700 / 1700 1180 / 1180 250 / 250 Balance 1700 / 1700 1180 / 1180 250 / 250 Weight 62.3 kg Intake: IV 500 / 500 250 / 250 250 / 250 Oral 1200 / 1200 930 / 930 Other: Comment Voiding independently Voiding independently Voiding Methods Toilet Completed studies during hospitalization [Text1]: 08/18/18: ABDOMINAL ULTRASOUND: Comparison is made with CT dated July,. The liver is enlarged the length of 19.5 cm. The liver echogenicity appears normal. No focal liver lesions are seen. The gallbladder has a normal appearance. No gallstones or gallbladder wall thickening is present. The spleen appears prominent in size, unchanged from the previous CT. The kidneys, pancreas and aorta are unremarkable. IMPRESSION: Mild hepatosplenomegaly. No evidence of focal liver lesion. Labs on day of discharge: Labs from last 24 hours 08/18/18 08/18/18 08/18/18 11:08 06:20 06:20 WBC RBC Hgb Hct MCV MCH MCHC RDW Plt Count MPV ESR 55 H Sodium Potassium Chloride Carbon Dioxide Anion Gap BUN Creatinine Estimated GFR/1.73 m2 Glucose Calcium Total Bilirubin AST ALT Alkaline Phosphatase C-Reactive Protein 0.76 H Total Protein Albumin Vancomycin Trough 17.1 08/18/18 08/18/18 06:20 06:20 WBC 6.54 RBC 4.66 Hgb 14.0 Hct 40.6 MCV 87.1 MCH 30.0 MCHC 34.5 RDW 14.3 H Plt Count 358 MPV 9.5 ESR Sodium 140 Potassium 4.3 Chloride 105 Carbon Dioxide 25.5 Anion Gap 9.5 BUN 18 Creatinine 0.77 Estimated GFR/1.73 m2 >= 60.00 Glucose 98 Calcium 8.6 Total Bilirubin 0.5 AST 103 H ALT 265 H Alkaline Phosphatase 176 H C-Reactive Protein Total Protein 7.3 Albumin 3.4 Vancomycin Trough Preliminary micro results at discharge 08/15/18 16:40 Blood Culture - Preliminary Blood NO GROWTH 48 HOURS 08/15/18 15:49 Blood Culture - Preliminary Blood NO GROWTH 48 HOURS
--- NOTE | 2018-08-18 15:34 | PDOC.CMPRO ---
- If Service Date Differs Date of service: 08/18/18 Time of Service: 15:34 Care Management Progress Note S/O- CM met with Kevin today following his US. He remains NPO at this time and reports that he is hungry but denies pain. Kevin will swing at [facility] starting today and receive IV antibiotics TID through the end of August. He is afebrile today. CM reviewed swingbed agreement with Kevin and he signed. CM emailed Jessica Dean regarding disability assistance and will follow up with her on Tuesday. [facility] referral has been sent. A-43 yo man admitted with recurrent fevers. P-Kevin will stay in SB1 status through the end of August, and discharge home at that time. Anticipate patient will discharge with no services and follow up with his PCP. CM will continue to offer support regarding discharge planning and disposition.
--- NOTE | 2018-08-18 15:38 | CMPROGNOTE_ITS ---
- If Service Date Differs Date of service: 08/18/18 Time of Service: 15:34 Care Management Progress Note S/O- CM met with Kevin today following his US. He remains NPO at this time and reports that he is hungry but denies pain. Kevin will swing at [facility] starting today and receive IV antibiotics TID through the end of August. He is afebrile today. CM reviewed swingbed agreement with Kevin and he signed. CM emailed Jessica Dean regarding disability assistance and will follow up with her on Tuesday. [facility] referral has been sent. A-43 yo man admitted with recurrent fevers. P-Kevin will stay in SB1 status through the end of August, and discharge home at that time. Anticipate patient will discharge with no services and follow up with his PCP. CM will continue to offer support regarding discharge planning and disposition.
[2018-08-18 16:20] VITALS: BP 120/77; PULSE 84; RESP 19; TEMP 37.1; O2SAT 98
== END 2018-08-18 16:57 | disposition swing bed (61) | DRG 871 ==
PROVIDERS: Nurse Practitioner; Admitting Provider Internal Medicine; PCP Nurse Practitioner; Visit Provider Internal Medicine
DX: R78.81 Bacteremia (principal); I33.0 Acute and subacute infective endocarditis; R50.9 Fever, unspecified; R76.8 Other specified abnormal immunological findings in serum; F19.10 Other psychoactive substance abuse, uncomplicated; F17.210 Nicotine dependence, cigarettes, uncomplicated
CPT/HCPCS: 36415; 36569; 80048; 80053; 80076; 85027; 85652; 87040; 87389; 99222; 99232; 99239; 76700; 80202; 83605; 83735; 85025; 86140

== ENCOUNTER 2018-08-16 00:42 | Outpatient (RCR) | payer MEDICAID, SELFPAY ==
[2018-08-07] MEDS: Normal Saline Flush 10 ML SYR IVP (17:48)
[2018-08-08] MEDS: Normal Saline Flush 10 ML SYR IVP ×2 (05:20→16:55)
[2018-08-09] MEDS: Normal Saline Flush 10 ML SYR IVP (17:42)
[2018-08-11] MEDS: Normal Saline Flush 10 ML SYR IVP (05:33)
[2018-08-11 16:26] VITALS: BP 135/87; PULSE 94; RESP 20; TEMP 37.3; O2SAT 99
[2018-08-12] MEDS: Normal Saline Flush 10 ML SYR IVP (17:12)
[2018-08-13 05:34] LABS: Vancomycin, Trough 13.3 ug/mL (10.0-20.0)
[2018-08-13] MEDS: Normal Saline Flush 10 ML SYR IVP ×2 (05:36→17:19)
[2018-08-14] MEDS: Normal Saline Flush 10 ML SYR IVP (05:54)
[2018-08-14 17:04] VITALS: TEMP 36.9
[2018-08-15] MEDS: Normal Saline Flush 10 ML SYR IVP (05:13)
== END 2018-09-06 23:59 | disposition home or self-care (01) ==
LOC: INF 00:42
PROVIDERS: PCP Nurse Practitioner; Visit Provider Family Medicine
DX: R78.81 Bacteremia (principal); I33.0 Acute and subacute infective endocarditis
CPT/HCPCS: 36415; 80048; 80076; 85652; 87040; 96365; 96366; 80202; 83605; 83735; 85025; 86140

== ENCOUNTER 2018-08-18 16:49 | Inpatient (IN) | payer MEDICAID, SELFPAY ==
--- NOTE | 2018-08-18 15:55 | W.PM.HP.N ---
Date of service: 08/18/18 Time of Service: 15:55 Assessment and Plan (1) Bacteremia: Current visit: No Status: Acute Original blood cultures were positive for microbacterium. Current blood cultures have yielded no growth at 48 hours. Outpatient management has been attempted twice with the patient presenting back to his primary care provider office reporting fevers resulting in direct admissions. He has continued to use IV drugs as an outpatient. He is currently undergoing a 6-week course of IV vancomycin. He has had no fevers here at the hospital with 3 times daily dosing of vancomycin. Plan to continue IV vancomycin as this appears to be appropriate coverage and complete the 6-week course here at the hospital on swing bed status. (2) IV drug abuse: Current visit: No Status: Acute Continued IV drug use in the setting of bacteremia treatment. Will provide him with local resources if he is interested in abstinence from IV drug use. (3) Tobacco abuse: Current visit: No Status: Acute Continue Chantix and as needed nicotine replacement. (4) DVT prophylaxis: Current visit: Yes Status: Acute Lovenox ordered, pt has refused. He ambulates frequently. (5) Discharge planning issues: Current visit: No Status: Acute He is a full code. Continue IV vanco on swing bed status, end date 09/06/18. (6) Hepatitis C antibody test positive: Current visit: No Status: Acute New diagnosis as of June of 2018. He does have a viral load, greater than 540,000. He had a liver ultrasound today that showed Mild hepatosplenomegaly. No evidence of focal liver lesion. LFTs elevated, continue to monitor. History of Present Illness Chief Complaint: Fevers Narrative: Kevin Paulino is a 43-year-old male with a history of IV drug abuse who has recently been admitted to [facility] for bacteremia, suspected endocarditis. He was first admitted on 07/18/18 to 07/20/18, at that time he had over a month history of shaking chills and fevers. He had been seen prior to this visit in the emergency department been recommended for admission for Microbacterium bacteremia and declined twice. Eventually he was admitted on 07/18/2018 after being referred from his primary care provider's office. He was admitted to [facility] at that time and empirically treated with IV vancomycin. He did have repeat blood cultures drawn on 07/26/2018 which grew gram-positive rods. This was originally thought to be a contaminant however, there is a possibility that this culture represented microbacterium as microbacterium is a gram-positive mey. He was eager for discharge at that time. Infectious disease at [facility] was consulted and recommended daptomycin once daily which he received from his discharge on 07/20/2018 until he was readmitted on 07/26/2018. He went on to use IV drugs after his discharge. He went back to his primary care provider office with continued fevers and shakes. At that time Dr. Motta felt that this represented failure of the outpatient antibiotic regimen. He was then directly admitted again from his primary care provider office on 07/26/2018. There was concern for recurrent bacteremia, at that time he was restarted on the IV vancomycin which appeared to have been appropriate on his previous admission. He went on to have a TTE and a SUMMER which were both negative for endocarditis. Again, he was eager for discharge and agreed to a total of 6 weeks of IV vancomycin as an outpatient. However, on 08/15/18 he presented to his primary care provider office again reporting fevers and shakes every night since he was discharged on August 07, 2018. He had been diaphoretic with these episodes and he also reported headaches, some nausea, no vomiting, no diarrhea. He also reported mild chest discomfort earlier that day without palpitations. He did admit to using IV drugs after his discharge on August 07 and August 08. He used a clean needle the first time. He did not use a clean needle on another occasion since discharge. He was again admitted to the [facility] floor for IV antibiotics for ongoing treatment of bacteremia. During this admission he has had no recurrence of fevers. A phone call was placed to infectious disease who agreed that the patient may have had fevers as an outpatient due to twice daily dosing and now that the patient is on 3 times daily dosing he is no longer febrile. Given the repeated admissions, it has been determined that it would be best for the patient to be transition to a swing bed status and continue IV vancomycin at current dosing until the antibiotic course is complete. The 6 weeks of IV vancomycin and date is 09/06/2018. He is transitioned today from acute care to swing bed level 1 for IV antibiotics. Review of Systems Review of Systems All systems reviewed & are unremarkable except as noted in HPI and below Meds Home Medications Medication Instructions Recorded Confirmed Type ibuprofen [IBU] 600 mg PO QID PRN PRN #60 tab 08/07/18 08/15/18 Rx varenicline [Chantix] 0.5 mg PO DAILY #56 tab 08/07/18 08/15/18 Rx Allergies Allergy/AdvReac Type Severity Reaction Status Date / Time gabapentin Allergy Intermediate Itching, Unverified 07/18/18 17:32 jumpy Exam Narrative Exam Narrative: Exam Narrative: General: He is awake, alert and oriented. He is pleasant and cooperative. He is sitting up in bed watching the television. HEENT: Normocephalic, atraumatic. Pupils are equal and round, EOMs intact. Sclera are nonicteric, conjunctiva noninjected. Neck: supple, no JVD. Cardiovascular: HRR, no murmur, clicks, gallops or rubs. Nontacycardic. Respiratory: respirations even and unlabored. LSCTA throughout. GI: abdomen soft, nontender on palpation with normoactive BS throughout. Extremities: well perfused without clubbing, cyanosis or edema.
[2018-08-18] MEDS: Nicotine 14 MG/24 HR PATCH TD (18:02)
[2018-08-18] MEDS: Ibuprofen 600 MG TAB PO (18:11)
[2018-08-18] MEDS: VANCOMYCIN 1,000 MG in Normal Saline 250 ML 166.667 MG IVPB (20:06)
[2018-08-18] MEDS: Varenicline 1 MG TAB 0.5 MG PO (20:08)
[2018-08-18] MEDS: Normal Saline Flush 10 ML SYR IVP (20:32)
[2018-08-19] MEDS: VANCOMYCIN 1,000 MG in Normal Saline 250 ML 166.667 MG IVPB ×2 (03:25→20:05)
[2018-08-19 07:35] VITALS: BP 123/81; PULSE 82; RESP 17; TEMP 37.1; O2SAT 99
[2018-08-19] MEDS: Varenicline 1 MG TAB 0.5 MG PO ×2 (08:00→20:04)
[2018-08-19] MEDS: Ibuprofen 600 MG TAB PO ×2 (08:03→15:42)
--- NOTE | 2018-08-19 08:10 | PHARADMIT ---
Addendum entered by Lamin Vega III 09/01/18 09:39: Pharmacy Note Subjective has deduced that patient has developed DRESS syndrome, as a reaction to the Vancomycin therapy. (DRESS, Drug Rash with Eosinophilia and Systemic Symptoms) Objective VS-OK No Labs, NNo documented BM Assessment Using Diprosone & Hydrocortisone creams, may try systemic steroids. Zyvox IV completes tonight, then switch to PO BID. Plan MD to evaluate how topical treatment is working. May be discharged home if rash is abating. Original Note: Addendum entered by Lamin Vega III 08/31/18 17:10: MD talked with [facility], Vancoycin dc'd, Zyvox 600mg IV q12 hrs started x 48 hours then switch to PO and discharge home. Vancomycin entered as patient ADR, body rash. Diprosone cream to rash areas except face, hydrocortisone cream tto facial rash. Original Note: Addendum entered by Lamin Vega III 08/30/18 12:38: Pharmacy Note Subjective Patient continues to react to Vancomycin despite premedicating w/ Benadryl. MD questions whether this may be a true allergic Rxn vs ADR. MD to call ID @ [facility] to decuss other treatment options. Objective VS-OK hr-94 no Labs Last noted BM 08/25 Assessment No med changes Plan Vancomycin continues for now. Original Note: Addendum entered by Ekta Hatfield 08/29/18 12:06: Pharmacy Note Subjective new midline placed yesterday Objective HR-98 other VS okay no labs Assessment blood cultures from the - no growth at 24 hours blood cultures from the - still pending PO diphenhydramine ordered for 30 minutes prior to vanco doses Plan check vanco trough and renal function once a week as long as they continue to be stable (09/04) Original Note: Addendum entered by Ekta Hatfield 08/28/18 12:08: Pharmacy Note Subjective blood cultures still pending Objective HR-104 other VS okay SCr-0.72 Assessment vanco trough 17.7, continuing same dose but extending infusion rate to 2.5 hours due to concern for possible christin syndrome Plan check vanco trough and renal function once a week as long as they continue to be stable (09/04) Original Note: Addendum entered by Ekta Hatfield 08/27/18 11:56: Pharmacy Note Subjective new blood cultures pending due to temp spike last night Objective Tmax-37.9 last night, HR-102 other VS okay no labs Assessment vanco continues, estimated end date now 09/26/18 Plan check vanco trough and renal function once a week as long as they continue to be stable (09/01) Original Note: Addendum entered by Ekta Hatfield 08/26/18 08:36: Pharmacy Note Subjective pt has midline for IV antibiotics to complete 6 wk course of therapy Objective VS-okay no labs Assessment noted during meeting that MD wanted to change the start of therapy to 08/15@1800 when the pt was admitted here due to failure on BID dosing since pt had fevers and such, would make expected end date 09/26/18 vanco trough was 15.9 yesterday so the dosing stayed the same Plan check vanco trough and renal function once a week as long as they continue to be stable (09/01) Original Note: Addendum entered by Peace Pretty 08/23/18 09:52: Pharmacy Note Subjective pt has midline for IV antibiotics to complete 6 wk course of therapy ed date 09/06/18 Objective vs ok, Assessment no changes noted Plan check vanco trough and renal function once a week as long as they continue to be stable Original Note: Addendum entered by Ekta Hatfield 08/22/18 10:22: HR-97 other VS okay no labs no med changes order vanco trough and SCr for 08/25/18 check vanco trough and renal function once a week as long as they continue to be stable Original Note: Addendum entered by Ekta Hatfield 08/21/18 11:37: Pharmacy Note Subjective Objective VS okay plt 311 Assessment Last Vanco trough 17.1 on 08/18/18, dosing is 1gram IV q8h check vanco trough and renal function once a week as long as they continue to be stable Plan continue Vanco coverage thru end of the month order vanco trough SCr for 08/25/18 Original Note: Addendum entered by Asha Arriaga 08/20/18 14:32: Pharmacy Note Subjective Pt would like to wean off Nicotine while here as swingbed Pt would like to be able to leave building on pass...care management checking protocols for swingbed status Objective VS good, Afebrile this admission, no labs Assessment No nicotine decrease as of this note, aware of patient request, also has Chantix last SCr 08/18/18 0.77 with very little fluctuation, do not feel we need to keep drawing frequent Vanco troughs and Scr levels Last Vanco trough 17.1 on 08/18/18, dosing is 1gram IV q8h Patient is refusing Lovenox, ambulates frequently Plan continue Vanco coverage thru end of the month Original Note: 08/16/18 14:22 - Pharmacy Review by Lamin Vega III [facility] Num: [id number] : 1975 Patient Age: 43 SWINGBED 08/18/18 Vanco trough 17.1 on 08/18/18, continue 1gram IV q8h VS not reported Addendum entered by Lamin Vega III 08/18/18 11:15: Pharmacy Note Subjective Recurrent fevers in setting of ongoing IV drug abuse. Objective OK- VS, Lytes-OK SCr-0.77 H&H,Plts-OK, Assessment Vancomycin level at 11am , will evaluate and adjust dose accordingly. Plan Swing Bed later today...To continue Vancomycin until end august. Original Note: Addendum entered by Asha Arriaga 08/17/18 14:57: Pharmacy Note Subjective Objective Vs ok, afebrile Assessment Micro no growth x24h Plan Vanco trough ordered for 11am Tuesday Unsure at this time if he will convert back to infusion room treatment as outpt or stay as Swingbed through end of August Original Note: Admission Pharmacy Clinical Review FEVERS, Endocarditis, (needs Midline) Code Status Full Code Current Weight Wgt-62.5 kg Renally Cleared and Narrow Therapeutic Index Meds CrCl~ 105 mL/min Meds-OK QTc Value / Action Taken NA BP Control, Fever BP- 110/70 Tmax-37.5C Electrolytes reviewed Na- 138 K+4.1 Mag-2.3 DVT Prophylaxis Lovenox Opiate Usage / Scheduled Bowel Regimen Ordered No No Plt/SCr for Heparin / Enoxaparin Plts- 370 SCr- 0.72 INR for Warfarin na H/H stable, WBC/Bands H&H- 13.8/39.5 WBC- 7.53 Antibiotic appropriateness Vancomycin Cultures and Sensitivities Blood-pending Surgical ABX d/c within 24 hr na DM control / Insulin Dosing BG-96 Heart Failure (Check EF%) (NEIL's, B-Block, Diuretics) none IV to PO Switch No Home Meds Reviewed Yes Home Meds Not Ordered Ordered Comments Vancomycin Trough 16.6 (08/15)
[2018-08-19] MEDS: VANCOMYCIN 1,000 MG in Normal Saline 250 ML 167 MG IVPB (11:39)
[2018-08-19] MEDS: Normal Saline Flush 10 ML SYR IVP ×2 (11:40→20:05)
[2018-08-19 16:04] VITALS: BP 123/86; PULSE 94; RESP 18; TEMP 37.3; O2SAT 100
[2018-08-19] MEDS: Nicotine 14 MG/24 HR PATCH TD (17:05)
--- NOTE | 2018-08-19 17:54 | NUR.NOTE ---
Nursing Note: 1705 Pt had nicotine patch on right shoulder, removed at this time and new patch placed on left shoulder. Pt has no order for PRN patch removal.
[2018-08-20] MEDS: VANCOMYCIN 1,000 MG in Normal Saline 250 ML 166.667 MG IVPB ×3 (04:01→20:03)
[2018-08-20] MEDS: Normal Saline Flush 10 ML SYR IVP ×3 (04:01→20:05)
[2018-08-20 04:07] VITALS: BP 112/68; PULSE 83; RESP 16; TEMP 36.7; O2SAT 99
[2018-08-20 07:30] VITALS: BP 124/77; PULSE 89; RESP 17; TEMP 37.5; O2SAT 98
[2018-08-20] MEDS: Varenicline 1 MG TAB 0.5 MG PO ×2 (07:45→20:03)
[2018-08-20] MEDS: Ibuprofen 600 MG TAB PO ×3 (07:52→18:08)
[2018-08-20 15:37] VITALS: BP 120/84; PULSE 85; RESP 18; TEMP 36.8; O2SAT 99
--- NOTE | 2018-08-20 17:38 | PDOC.CMPRO ---
- If Service Date Differs Date of service: 08/20/18 Time of Service: 17:38 Care Management Progress Note S/O: CM met with Kevin he is walking frequently in the halls. Kevin is now a SB1 for TID antibiotics, he has a midline in place. Kevin would like to be able to leave the medical surgical unit during the day, he states he feels board walking the halls. CM reviewed with provider, Kevin can go out on pass. He agrees to random witness UDS and his midline would be wrapped and marked. CM reviewed with CCRN who will follow up with Generating Plant Superintendent to manage details. CM reviewed the swing bed policy with Kevin as well as the risk of infection or even if where to use his midline for illicit substance. Kevin agrees to the plan and states it I wanted to use I could have done it right in the hospital. Kevin wants to be able to continue smoking cessation while he is at [facility]. He request that his nicotine patch be decreased weekly until he is able to remove the patch. A: Kevin is a 43 year old male admitted to SB1 for IV antibiotics, he will need a total of 6 weeks of IV antibiotics. P: Kevin will remain in SB1 at least until the end of August. Provider to follow up with infectious disease at [facility] to determine length of treatment. Kevin had received BID dosing as outpatient. Current plan is for his last dose to be the end of August but may need to be mid September pending ID consult. CM will continue to provide support to Pt and referral to resources.
[2018-08-20] MEDS: Nicotine 14 MG/24 HR PATCH TD (18:08)
--- NOTE | 2018-08-20 18:16 | CMPROGNOTE_ITS ---
- If Service Date Differs Date of service: 08/20/18 Time of Service: 17:38 Care Management Progress Note S/O: CM met with Kevin he is walking frequently in the halls. Kevin is now a SB1 for TID antibiotics, he has a midline in place. Kevin would like to be able to leave the medical surgical unit during the day, he states he feels board walking the halls. CM reviewed with provider, Kevin can go out on pass. He agrees to random witness UDS and his midline would be wrapped and marked. CM reviewed with CCRN who will follow up with Trimmer Operator to manage details. CM reviewed the swing bed policy with Kevin as well as the risk of infection or even if where to use his midline for illicit substance. Kevin agrees to the plan and states it I wanted to use I could have done it right in the hospital. Kevin wants to be able to continue smoking cessation while he is at [facility]. He request that his nicotine patch be decreased weekly until he is able to remove the patch. A: Kevin is a 43 year old male admitted to SB1 for IV antibiotics, he will need a total of 6 weeks of IV antibiotics. P: Kevin will remain in SB1 at least until the end of August. Provider to follow up with infectious disease at [facility] [place] of treatment. Kevin had received BID dosing as outpatient. Current plan is for his last dose to be the end of August but may need to be mid September pending ID consult. CM will continue to provide support to Pt and referral to resources.
[2018-08-21] MEDS: Normal Saline Flush 10 ML SYR IVP ×2 (03:41→11:36)
[2018-08-21] MEDS: VANCOMYCIN 1,000 MG in Normal Saline 250 ML 166.667 MG IVPB ×3 (03:41→20:19)
[2018-08-21 07:17] LABS: Platelet Count 311 x1000/uL (130-400)
[2018-08-21] MEDS: Ibuprofen 600 MG TAB PO ×3 (07:24→17:50)
[2018-08-21] MEDS: Varenicline 1 MG TAB 0.5 MG PO ×2 (07:24→17:49)
[2018-08-21 07:25] VITALS: BP 106/67; PULSE 90; RESP 18; TEMP 37.4; O2SAT 99
[2018-08-21] MEDS: Cyclobenzaprine 10 MG TAB PO (09:59)
--- NOTE | 2018-08-21 10:52 | PDOC.CMPRO ---
- If Service Date Differs Date of service: 08/21/18 Time of Service: 10:52 Care Management Progress Note S/O: Kevin was lying in bed when CM visited this morning. He is engaged in conversation and reports that he is feeling ok today. Per Kevin's request, CM contacted [facility] regarding disability. Jessica Dean ([facility]) reports that she does not deal with disability insurance but will be visiting Kevin this week. Kevin is SB1 for TID antibiotics and has a midline in place. Per patient request, CM faxed letter to pt's residence manager, Cristin Anton ([phone]) regarding pt's status at [facility] through August. A: Kevin is a 43 year old male admitted to SB1 for IV antibiotics, he will need a total of 6 weeks of IV antibiotics. P: Kevin will remain in SB1 at least until the end of August. Provider to follow up with infectious disease at [facility] to determine length of treatment. Kevin had received BID dosing as outpatient. Current plan is for his last dose to be the end of August but may need to be mid September pending ID consult. CM will continue to provide support to patient and care team regarding discharge planning and disposition, and referral to resources.
--- NOTE | 2018-08-21 11:05 | CMPROGNOTE_ITS ---
- If Service Date Differs Date of service: 08/21/18 Time of Service: 10:52 Care Management Progress Note S/O: Kevin was lying in bed when CM visited this morning. He is engaged in conversation and reports that he is feeling ok today. Per Kevin's request, CM contacted [facility] regarding disability. Jessica Dean ([facility]) reports that she does not deal with disability insurance but will be visiting Kevin this week. Kevin is SB1 for TID antibiotics and has a midline in place. Per patient request, CM faxed letter to pt's assistant district attorney, Cristin Anton ([phone]) regarding pt's status at [facility] through August. A: Kevin is a 43 year old male admitted to SB1 for IV antibiotics, he will need a total of 6 weeks of IV antibiotics. P: Kevin will remain in SB1 at least until the end of August. Provider to follow up with infectious disease at [facility] to determine length of treatment. Kevin had received BID dosing as outpatient. Current plan is for his last dose to be the end of August but may need to be mid September pending ID consult. CM will continue to provide support to patient and care team regarding discharge planning and disposition, and referral to resources.
--- NOTE | 2018-08-21 11:06 | CM.SBPSYCH ---
- If Service Date Differs Date of service: 08/18/18 Time of Service: 11:29 SB Psychosocial/Act.Assessment - Hospital Admission Admission Date: 08/15/18 Admission From:: Home. Pt admitted through the ER on 08/15/2018. Swingbed I on 08/18/2018. Diagnosis:: Bacteremia. - Swing Bed Admission Swing Bed Admit Date:: 08/18/18 Swing Bed Level of Care: Level 1/SNF - Social Supports PREVIOUS FUNCTIONAL STATUS/SOCIAL/FAMILY SUPPORTS:: Kevin resides in [facility], he states that he is currently residing in a friends trailer. Kevin states that his mom and grandparents reside locally and is mom is supportive. Kevin works at [employer] and states that he has worked for [employer] on and off for 17 years. Kevin is independent, he drives, and manages ADL's - Prior to Admission Living Arrangements/Environment Prior to Admission:: Kevin has been living on his ex-girlfriend's couch. Prior to that, he was living with friends in a situtation that was not good (per patient). Kevin had been coming for BID IV antibiotic infusions prior to his last admission/discharge (07/18/18). - Education Highest Grade Completed:: HS Diploma; 12th grade. Special Education/Training:: Karla. - Work History Employment Status:: Employed with [employer] part-time. Reportedly worked two days between this admission and the last (07/18/18). - Electra: No 's Spouse: No - Benefits Financial: Medicaid - Adventism Active Cheondoism Member:: No Will Cheondoism Members or Cold Patcher Visit:: No - Advance Directives for Healthcare If no AD, do you want more information:: No - Community Community Supports/Involvement: Referrals to [facility] Nurse Jessica Dean and [facility]. No community services at this time. - Present Functional Status Physical Abilities:: Independent. Cognitive:: A&Ox3. Communication:: No limitations/disabilities. Sensory Systems: No limitations/disabilities. Behavior:: WNL. Appropriate. - Medical History PAST MEDICAL HISTORY/PAST SURGICAL HISTORY:: Hepatitis C, IV drug use, endocarditis, vitiligo. Surgical hx: shoulder. General Health:: Stable. Past Psychiatric Treatment:: N/A. - Admission Data Reason for Swing Bed Admission:: Failed outpatient BID IV antibiotics. Swingbed admission for TID IV antibiotics through August/early September. Discharge Plan:: Kevin will discharge home when medically ready per MD. Anticipate Kevin will discharge with no services and follow up with PCP and plan of care. will continue to offer support to patient and care team regarding discharge planning and disposition. Assessment: Kevin will remain on SB1 status at [facility] through the end of August/beginning of September for TID IV antibiotics. Swingbed admission paperwork reviewed with patient and signed. Transportation Coordinator: [facility] Date Assessment was completed:: 08/21/18
--- NOTE | 2018-08-21 11:23 | CMSA_ITS ---
- If Service Date Differs Date of service: 08/18/18 Time of Service: 11:29 SB Psychosocial/Act.Assessment - Hospital Admission Admission Date: 08/15/18 Admission From:: Home. Pt admitted through the ER on 08/15/2018. Swingbed I on . Diagnosis:: Bacteremia. - Swing Bed Admission Swing Bed Admit Date:: 08/18/18 Swing Bed Level of Care: Level 1/SNF - Social Supports PREVIOUS FUNCTIONAL STATUS/SOCIAL/FAMILY SUPPORTS:: Kevin resides in [facility], he states that he is currently residing in a friends trailer. Kevin states that his mom and grandparents reside locally and is mom is supportive. Kevin works at [employer] and states that he has worked for [employer] on and off for 17 years. Kevin is independent, he drives, and manages ADL's - Prior to Admission Living Arrangements/Environment Prior to Admission:: Kevin has been living on his ex-girlfriend's couch. Prior to that, he was living with friends in a situtation that was not good (per patient). Kevin had been coming for BID IV antibiotic infusions prior to his last admission/discharge (07/18/18). - Education Highest Grade Completed:: HS Diploma; 12th grade. Special Education/Training:: Karla. - Work History Employment Status:: Employed with [employer] part-time. Reportedly worked two days between this admission and the last (07/18/18). - Mcgregor: No 's Spouse: No - Benefits Financial: Medicaid - Buddhist Active Yazidi Member:: No Will Yazidi Members or Roustabout Crew Pusher Visit:: No - Advance Directives for Healthcare If no AD, do you want more information:: No - Community Community Supports/Involvement: Referrals to [facility] Nurse Jessica Dean and [facility]. No community services at this time. - Present Functional Status Physical Abilities:: Independent. Cognitive:: A&Ox3. Communication:: No limitations/disabilities. Sensory Systems: No limitations/disabilities. Behavior:: WNL. Appropriate. - Medical History PAST MEDICAL HISTORY/PAST SURGICAL HISTORY:: Hepatitis C, IV drug use, endocarditis, vitiligo. Surgical hx: shoulder. General Health:: Stable. Past Psychiatric Treatment:: N/A. - Admission Data Reason for Swing Bed Admission:: Failed outpatient BID IV antibiotics. Swingbed admission for TID IV antibiotics through August/early September. Discharge Plan:: Kevin will discharge home when medically ready per MD. Anticipate Kevin will discharge with no services and follow up with PCP and plan of care. will continue to offer support to patient and care team regarding discharge planning and disposition. Assessment: Kevin will remain on SB1 status at [facility] through the end of August/ beginning of September for TID IV antibiotics. Swingbed admission paperwork reviewed with patient and signed. Drain Cleaner: [facility] Date Assessment was completed:: 08/21/18
--- NOTE | 2018-08-21 11:27 | CM.SWINGPC ---
- If Service Date Differs Date of service: 08/18/18 Time of Service: 11:27 Swingbed Plan of Care Plan of care: SWING BED PROGRAM ACTIVITIES/DISCHARGE PLAN OF CARE ACTIVITIES PLAN Date: 08/18/2018 Identified Need: TID IV antibiotics through end august/beginning of September. Intervention/Plan: TID IV antibiotics. Initials tcs DISCHARGE PLAN Date: Identified Need: Intervention/Plan: Initials
[2018-08-21 15:46] VITALS: BP 112/73; PULSE 84; RESP 18; TEMP 37.1; O2SAT 99
[2018-08-22] MEDS: Normal Saline Flush 10 ML SYR IVP ×2 (04:01→11:56)
[2018-08-22] MEDS: VANCOMYCIN 1,000 MG in Normal Saline 250 ML 166.667 MG IVPB (04:01)
[2018-08-22 04:07] VITALS: BP 96/61; PULSE 78; RESP 16; TEMP 36.3; O2SAT 99
[2018-08-22 07:28] VITALS: BP 108/70; PULSE 97; RESP 18; TEMP 36.7; O2SAT 99
[2018-08-22] MEDS: Varenicline 1 MG TAB 0.5 MG PO ×2 (08:40→17:17)
[2018-08-22] MEDS: Ibuprofen 600 MG TAB PO ×2 (08:40→16:51)
[2018-08-22] MEDS: VANCOMYCIN 1,000 MG in Normal Saline 250 ML 166.67 MG IVPB ×2 (11:55→20:10)
[2018-08-22] MEDS: Cyclobenzaprine 10 MG TAB PO ×2 (11:55→18:00)
[2018-08-22 16:05] VITALS: BP 132/79; PULSE 97; RESP 18; TEMP 37.3; O2SAT 97
[2018-08-22] MEDS: Nicotine 14 MG/24 HR PATCH TD (18:00)
[2018-08-22 19:29] VITALS: BP 124/87; PULSE 94; RESP 18; TEMP 37.3; O2SAT 98
[2018-08-23 00:36] VITALS: BP 125/78; PULSE 101; RESP 18; TEMP 36.4; O2SAT 99
[2018-08-23] MEDS: VANCOMYCIN 1,000 MG in Normal Saline 250 ML 166.67 MG IVPB (03:37)
[2018-08-23] MEDS: Ibuprofen 600 MG TAB PO ×3 (05:16→19:58)
[2018-08-23] MEDS: Normal Saline Flush 10 ML SYR IVP ×3 (05:18→19:59)
[2018-08-23] MEDS: Cyclobenzaprine 10 MG TAB PO ×2 (05:25→19:58)
[2018-08-23 07:25] VITALS: BP 104/68; PULSE 58; RESP 18; TEMP 36.1; O2SAT 98
[2018-08-23] MEDS: Varenicline 1 MG TAB 0.5 MG PO ×2 (07:36→17:11)
[2018-08-23] MEDS: VANCOMYCIN 1,000 MG in Normal Saline 250 ML 167.667 MG IVPB (11:41)
[2018-08-23 17:09] VITALS: BP 125/62; PULSE 94; RESP 19; TEMP 37.1; O2SAT 99
[2018-08-23] MEDS: VANCOMYCIN 1,000 MG in Normal Saline 250 ML 167 MG IVPB (19:59)
[2018-08-23] MEDS: Nicotine 14 MG/24 HR PATCH TD (21:53)
[2018-08-23 22:28] VITALS: BP 111/74; PULSE 92; RESP 18; TEMP 37.1; O2SAT 98
[2018-08-24 02:00] VITALS: BP 107/70; PULSE 74; RESP 16; TEMP 36.8; O2SAT 97
[2018-08-24] MEDS: VANCOMYCIN 1,000 MG in Normal Saline 250 ML 167 MG IVPB ×3 (03:59→20:12)
[2018-08-24 07:06] LABS: Platelet Count 280 x1000/uL (130-400)
[2018-08-24 07:25] VITALS: BP 150/74; PULSE 79; RESP 18; TEMP 36.6; O2SAT 98
[2018-08-24] MEDS: Varenicline 1 MG TAB 0.5 MG PO ×2 (08:04→18:36)
[2018-08-24] MEDS: Ibuprofen 600 MG TAB PO ×3 (08:05→21:57)
[2018-08-24] MEDS: Cyclobenzaprine 10 MG TAB PO ×2 (08:05→18:41)
--- NOTE | 2018-08-24 15:28 | PDOC.CMACT ---
Care Management Activity Note Kevin has been discussing outside activity time with the team; undetermined plan at this time. But Kevin may be able to have his PICC line taped and get outside for short periods of time per workforce staffing advisor. Kevin enjoys using the [employer] Laptop issued to him, and talks with friends on the phone and visitors in person. He continues to be offered music therapy, pet therapy and Reiki as well.
--- NOTE | 2018-08-24 15:46 | CMACTNOTE_ITS ---
Care Management Activity Note Kevin has been discussing outside activity time with the team; undetermined plan at this time. But Kevin may be able to have his PICC line taped and get outside for short periods of time per social staff worker. Kevin enjoys using the [employer] Laptop issued to him, and talks with friends on the phone and visitors in person. He continues to be offered music therapy, pet therapy and Reiki as well.
[2018-08-24 16:10] VITALS: BP 122/87; PULSE 99; RESP 20; TEMP 37.1; O2SAT 99
[2018-08-24] MEDS: Normal Saline Flush 10 ML SYR IVP (20:00)
[2018-08-24] MEDS: Nicotine 14 MG/24 HR PATCH TD (20:19)
[2018-08-24 20:49] VITALS: BP 111/75; PULSE 97; RESP 18; TEMP 37.3; O2SAT 97
[2018-08-25 00:10] VITALS: BP 128/82; PULSE 91; RESP 20; TEMP 36.6; O2SAT 98
[2018-08-25] MEDS: Normal Saline Flush 10 ML SYR IVP ×3 (03:46→20:35)
[2018-08-25] MEDS: VANCOMYCIN 1,000 MG in Normal Saline 250 ML 167 MG IVPB ×3 (03:51→20:35)
[2018-08-25] MEDS: Ibuprofen 600 MG TAB PO ×3 (05:47→18:11)
[2018-08-25] MEDS: Cyclobenzaprine 10 MG TAB PO ×3 (05:47→18:11)
[2018-08-25 07:23] LABS: Abs Immature Grans 0.02 k/cumm (0.0-0.09); Absolute Basophil Count 0.01 k/cumm (0.0-0.2); Absolute Eosinophil Count 0.48 k/cumm (0.0-0.7); Absolute Lymphocyte Count 0.58 k/cumm (1.2-3.4); Absolute Neutrophil Count 3.48 k/cumm (1.2-6.7); Basophils % 0.2; Eosinophils % 9.3; HCT 37.7 % (40.0-50.0); Immature Grans % 0.4; Lymphocytes % 11.2; Mean Corp. HGB Concentration 34.5 g/dL (32.0-36.0); Mean Corpuscular Volume 86.9 fL (80-95); Mean Platelet Volume 9.1 fL (8.0-11.0); Monocytes % 11.6; Neutrophils % 67.3; Platelet Count 269 x1000/uL (130-400); RBC 4.34 m/cumm (4.50-6.00); RBC Distribution Width 14.3 % (11.8-14.1); White Blood Cell Count 5.17 k/cumm (4.4-10.8)
[2018-08-25 07:35] VITALS: BP 96/60; PULSE 78; RESP 18; TEMP 36.6; O2SAT 99
[2018-08-25 07:41] LABS: ALT 300 U/L (12-78); AST 99 U/L (15-37); Albumin 3.4 g/dL (3.4-5.0); Alkaline Phosphatase 182 U/L (46-116); Anion Gap 10.5 mmol/L (3-11); BUN 18 mg/dL (7-18); Bilirubin, Total 0.5 mg/dL (0.2-1.0); C-Reactive Protein 0.57 mg/dL (0.0-0.3); CO2 25.5 mmol/L (21.0-32.0); CREATININE 0.72 mg/dL (0.70-1.30); Calcium 8.9 mg/dL (8.5-10.1); Chloride 103 mmol/L (98-107); Glucose 92 mg/dL (70-100); Sodium 139 mmol/L (136-145); Total Protein 6.7 g/dL (6.4-8.2)
[2018-08-25 08:15] LABS: ESR 43 MM/HR (0-15)
[2018-08-25] MEDS: Varenicline 1 MG TAB 0.5 MG PO ×2 (09:52→18:11)
[2018-08-25 11:40] LABS: Vancomycin, Trough 15.9 ug/mL (10.0-20.0)
[2018-08-25 15:55] VITALS: BP 115/77; PULSE 98; RESP 18; TEMP 37.2; O2SAT 98
--- NOTE | 2018-08-25 16:35 | W.PM.PROGNOT ---
Assessment and Plan (1) Bacteremia: Current visit: No Status: Acute Original blood cultures were positive for microbacterium. Current blood cultures have yielded no growth at 48 hours. Outpatient management has been attempted twice with the patient presenting back to his primary care provider office reporting fevers resulting in direct admissions. He has continued to use IV drugs as an outpatient. He is currently undergoing a 6-week course of IV vancomycin. He has had no fevers here at the hospital with 3 times daily dosing of vancomycin. Plan to continue IV vancomycin as this appears to be appropriate coverage and complete the 6-week course here at the hospital on swing bed status. His case was discussed with ID at [facility] today. They recommend considering 08/15/18 day #1 of antibiotics as he was not adequately treated as an outpatient as evidenced by fevers and chills. Continue current regimen. (2) IV drug abuse: Current visit: No Status: Acute Continued IV drug use in the setting of bacteremia treatment. Will provide him with local resources if he is interested in abstinence from IV drug use. Consider transition from the hospital to a supportive living situation or possibly rehab if he is interested. (3) Tobacco abuse: Current visit: No Status: Acute Continue Chantix and as needed nicotine replacement. (4) DVT prophylaxis: Current visit: No Status: Acute Lovenox ordered, pt has refused. He ambulates frequently. (5) Discharge planning issues: Current visit: No Status: Acute He is a full code. Continue IV vanco on swing bed status, end date originally 09/06/18. Plan to change end date to 09/26/18 per the recommendations of ID at [facility]. (6) Hepatitis C antibody test positive: Current visit: No Status: Acute New diagnosis as of June of 2018. He does have a viral load, greater than 540,000. He had a liver ultrasound during this hospitalization that showed Mild hepatosplenomegaly. No evidence of focal liver lesion. LFTs elevated, continue to monitor. (7) Insomnia: Current visit: Yes Status: Acute Start Melatonin and PRN benadryl for insomnia. Adjust doses as needed. Subjective Interval history since last seen: Kevin Paulino is a 43-year-old male with a history of IV drug abuse who has recently been admitted to [facility] multiple times for bacteremia, suspected endocarditis. He was first admitted on 07/18/2018 and has been discharged and readmitted twice since then. He is currently being treated with IV vancomycin, he will need to complete a 6-week course. His original end date was 09/06/2018, however, we discussed his case with infectious disease today and they recommended that we count the first day of this admission (acute: 08/15/2018) as day 1 as he was not being adequately treated as an outpatient when he was only receiving twice daily dosing of vancomycin as evidenced by continued fevers and chills as an outpatient. Today, he reports that he has not been sleeping well. He feels that he has restless legs. He also has a headache and he is tired. We discussed that better sleep may help with the headache and the fatigue. He denies any fevers, chills, chest pain/pressure, palpitations, shortness of breath, cough, wheeze. He is eating and drinking and tolerating a regular diet without nausea, vomiting or diarrhea. He is ambulating in the halls frequently. Exam Narrative Exam Narrative: Exam Narrative: General: He is awake, alert and oriented. He is pleasant and cooperative. He is sitting up in the chair. HEENT: Normocephalic, atraumatic. Pupils are equal and round, EOMs intact. Sclera are nonicteric, conjunctiva noninjected. Neck: supple, no JVD. Cardiovascular: HRR, no murmur, clicks, gallops or rubs. Nontacycardic. Respiratory: respirations even and unlabored. LSCTA throughout. GI: abdomen soft, nontender on palpation with normoactive BS throughout. Extremities: well perfused without clubbing, cyanosis or edema. Objective Objective Clinical Data: Abnormal lab results 08/25/18 08/25/18 Range/Units 06:50 06:50 RBC 4.34 L (4.50-6.00) m/cumm Hgb 13.0 L (13.5-17.5) g/dL Hct 37.7 L (40.0-50.0) % RDW 14.3 H (11.8-14.1) % Absolute Lymphocytes 0.58 L (1.2-3.4) k/cumm ESR 43 H (0-15) MM/HR AST 99 H (15-37) U/L ALT 300 H (12-78) U/L Alkaline Phosphatase 182 H (46-116) U/L C-Reactive Protein 0.57 H (0.0-0.3) mg/dL Vital Signs Temperature 37.2 C 08/25/18 15:55 Temperature Source Tympanic 08/25/18 15:55 Pulse 98 H 08/25/18 15:55 Pulse Rhythm Regular 08/25/18 14:35 Respiratory Rate 18 08/25/18 15:55 Respiratory Effort 08/25/18 14:35 Respiratory Depth Normal 08/25/18 14:35 Respiratory Pattern Normal 08/25/18 14:35 Blood Pressure 115/77 08/25/18 15:55 Pulse Oximetry 98 08/25/18 15:55 Oxygen Delivery Method Room Air 08/25/18 15:55 Oxygen Flow Rate 0 08/25/18 15:55 Pain Level 4 08/25/18 12:17 Comment 08/25/18 07:35 Intake & Output 08/24/18 08/25/18 08/25/18 23:59 11:59 23:59 Intake Total 1460 / 1460 1300 / 1300 480 / 480 Balance 1460 / 1460 1300 / 1300 480 / 480 Intake: IV 500 / 500 250 / 250 Oral 960 / 960 1050 / 1050 480 / 480 Other: Urine Appearance Clear Clear Laboratory Results WBC 5.17 k/cumm (4.4-10.8) 08/25/18 06:50 RBC 4.34 m/cumm (4.50-6.00) L 08/25/18 06:50 Hgb 13.0 g/dL (13.5-17.5) L 08/25/18 06:50 Hct 37.7 % (40.0-50.0) L 08/25/18 06:50 MCV 86.9 fL (80-95) 08/25/18 06:50 MCH 30.0 pg (27.0-33.0) 08/25/18 06:50 MCHC 34.5 g/dL (32.0-36.0) 08/25/18 06:50 RDW 14.3 % (11.8-14.1) H 08/25/18 06:50 Plt Count 269 x1000/uL (130-400) 08/25/18 06:50 MPV 9.1 fL (8.0-11.0) 08/25/18 06:50 Immature Gran % 0.4 08/25/18 06:50 Neutrophils % 67.3 08/25/18 06:50 Lymphocytes % 11.2 08/25/18 06:50 Monocytes % 11.6 08/25/18 06:50 Eosinophils % 9.3 08/25/18 06:50 Basophils % 0.2 08/25/18 06:50 Absolute Neutrophils 3.48 k/cumm (1.2-6.7) 08/25/18 06:50 Absolute Lymphocytes 0.58 k/cumm (1.2-3.4) L 08/25/18 06:50 Absolute Monocytes 0.60 k/cumm (0.11-0.7) 08/25/18 06:50 Absolute Eosinophils 0.48 k/cumm (0.0-0.7) 08/25/18 06:50 Absolute Basophils 0.01 k/cumm (0.0-0.2) 08/25/18 06:50 ESR 43 MM/HR (0-15) H 08/25/18 06:50 Sodium 139 mmol/L (136-145) 08/25/18 06:50 Potassium 4.0 mmol/L (3.5-5.1) 08/25/18 06:50 Chloride 103 mmol/L (98-107) 08/25/18 06:50 Carbon Dioxide 25.5 mmol/L (21.0-32.0) 08/25/18 06:50 Anion Gap 10.5 mmol/L (3-11) 08/25/18 06:50 BUN 18 mg/dL (7-18) 08/25/18 06:50 Creatinine 0.72 mg/dL (0.70-1.30) 08/25/18 06:50 Estimated GFR/1.73 m2 >= 60.00 (mL/min/1.73m2) 08/25/18 06:50 Glucose 92 mg/dL (70-100) 08/25/18 06:50 Calcium 8.9 mg/dL (8.5-10.1) 08/25/18 06:50 Total Bilirubin 0.5 mg/dL (0.2-1.0) 08/25/18 06:50 AST 99 U/L (15-37) H 08/25/18 06:50 ALT 300 U/L (12-78) H 08/25/18 06:50 Alkaline Phosphatase 182 U/L (46-116) H 08/25/18 06:50 C-Reactive Protein 0.57 mg/dL (0.0-0.3) H 08/25/18 06:50 Total Protein 6.7 g/dL (6.4-8.2) 08/25/18 06:50 Albumin 3.4 g/dL (3.4-5.0) 08/25/18 06:50 Vancomycin Trough 15.9 ug/mL (10.0-20.0) 08/25/18 10:50
[2018-08-25] MEDS: Nicotine 14 MG/24 HR PATCH TD (20:41)
[2018-08-25] MEDS: diphenhydrAMINE 25 MG CAP PO (22:10)
[2018-08-25] MEDS: Melatonin 3 MG TAB PO (22:10)
[2018-08-25 23:59] VITALS: BP 86/55; PULSE 85; RESP 19; TEMP 37.1; O2SAT 98
[2018-08-26] MEDS: VANCOMYCIN 1,000 MG in Normal Saline 250 ML 167 MG IVPB ×3 (04:17→20:32)
[2018-08-26] MEDS: Ibuprofen 600 MG TAB PO ×3 (04:23→20:31)
[2018-08-26] MEDS: Cyclobenzaprine 10 MG TAB PO ×3 (04:23→20:31)
[2018-08-26 06:04] VITALS: BP 106/70; PULSE 89; O2SAT 100
[2018-08-26 08:29] VITALS: BP 161/72; PULSE 96; RESP 14; TEMP 36.5; O2SAT 100
[2018-08-26] MEDS: Varenicline 1 MG TAB 0.5 MG PO ×2 (09:14→18:06)
[2018-08-26] MEDS: Normal Saline Flush 10 ML SYR IVP ×2 (09:14→20:31)
--- NOTE | 2018-08-26 10:23 | PDOC.CMPRO ---
- If Service Date Differs Date of service: 08/26/18 Time of Service: 10:23 Care Management Progress Note Kevin requested CM visit with him this morning. He is engaged in conversation and is talkative. Kevin reports that last evening his IV antibiotic finished at 2200 and he went to sleep. At 2300 he was awoken for vital signs and was not able to get back to bed until 0500. Kevin would like to not be woken up for vital signs. CM explained that monitoring was important for ascertaining whether or not he is febrile. Kevin agreed, but does not want to be woken. CM will pass the request on to nursing.
--- NOTE | 2018-08-26 17:48 | NUR.NOTE ---
Nursing Note: Spoke with CM regarding patient concern, that he was woken for VS on the overnight shift. Went to speak to the patient afterwards, I emphasized that we needed to keep track of his body temperatures as this is of concern in regards to the patients treatment. i suggested to him that he speak to the nurse when she took down his HS ABX IV that they do the VS then, . HGe was in agreement with this, I will pass this information off at COS
[2018-08-26 22:28] VITALS: BP 107/56; PULSE 103; RESP 20; TEMP 37.9; O2SAT 98
[2018-08-26] MEDS: diphenhydrAMINE 25 MG CAP PO (22:30)
[2018-08-26] MEDS: Melatonin 3 MG TAB PO (22:30)
--- NOTE | 2018-08-27 04:45 | NUR.NOTE ---
Nursing Note: Approximately 08/26 pt called to report his IV abx were finished. Pt was found to be anxious, skin was clammy, he reported feeling numbness on 3 different areas of his face and bilat feet. VS checked and stable except mild fever of 100.2. Reported findings to charge nurse. Vanco reactions reviewed in IV medication book and not consistent with pt symptoms, charge nurse called pharmacy to report and talked with hospitalist. No new orders. Pt checked on 2 hour roundings by visual check only as he has been very angry about getting woken up in the night and demands to not be woken up.
[2018-08-27] MEDS: VANCOMYCIN 1,000 MG in Normal Saline 250 ML 167 MG IVPB ×2 (04:54→11:59)
[2018-08-27] MEDS: Ibuprofen 600 MG TAB PO ×3 (06:47→20:34)
[2018-08-27] MEDS: Cyclobenzaprine 10 MG TAB PO ×3 (06:47→20:34)
[2018-08-27] MEDS: Varenicline 1 MG TAB 0.5 MG PO ×2 (08:48→17:40)
[2018-08-27 10:15] VITALS: BP 110/75; PULSE 102; RESP 18; TEMP 37.1; O2SAT 99
[2018-08-27] MEDS: Normal Saline Flush 10 ML SYR IVP ×2 (13:55→20:19)
[2018-08-27 16:10] VITALS: BP 111/79; PULSE 101; RESP 18; TEMP 37.4; O2SAT 99
[2018-08-27] MEDS: Nicotine 14 MG/24 HR PATCH TD (17:39)
[2018-08-27] MEDS: VANCOMYCIN 1,000 MG in Normal Saline 250 ML 166.667 MG IVPB (20:19)
[2018-08-27] MEDS: Melatonin 3 MG TAB PO (22:43)
[2018-08-27] MEDS: diphenhydrAMINE 25 MG CAP PO (22:43)
[2018-08-27 22:53] VITALS: BP 115/20; PULSE 62; RESP 20; TEMP 36.9; O2SAT 98
[2018-08-28] MEDS: Normal Saline Flush 10 ML SYR IVP ×3 (04:13→16:44)
[2018-08-28] MEDS: VANCOMYCIN 1,000 MG in Normal Saline 250 ML 167 MG IVPB (04:13)
[2018-08-28] MEDS: Ibuprofen 600 MG TAB PO ×3 (06:22→20:11)
[2018-08-28] MEDS: Cyclobenzaprine 10 MG TAB PO ×2 (06:22→20:11)
[2018-08-28 07:50] VITALS: BP 126/54; PULSE 67; RESP 18; TEMP 36.5; O2SAT 98
[2018-08-28] MEDS: Varenicline 1 MG TAB 0.5 MG PO ×2 (09:37→17:34)
[2018-08-28 11:09] VITALS: BP 117/77; PULSE 104; RESP 16; TEMP 37.1; O2SAT 99
[2018-08-28 11:41] LABS: CREATININE 0.72 mg/dL (0.70-1.30)
[2018-08-28 11:48] LABS: Vancomycin, Trough 17.7 ug/mL (10.0-20.0)
[2018-08-28] MEDS: VANCOMYCIN 1,000 MG in Normal Saline 250 ML 100 MG IVPB ×2 (12:42→20:10)
[2018-08-28] MEDS: Bacitracin 1 PACKET (13:41)
[2018-08-28 15:35] VITALS: BP 117/85; PULSE 115; RESP 20; TEMP 38.9; O2SAT 99
--- NOTE | 2018-08-28 16:23 | W.PM.PROGNOT ---
Assessment and Plan (1) Red man syndrome: Current visit: Yes Status: Acute Treated with benadryl/IV ranitidine (IV benadryl on a critical shortage). From now on, slowing down infusion rate and premedicating with benadryl. (2) Endocarditis: Current visit: No Status: Acute Due to microbacterium. Continue vancomycin - current fevers are likely due to SOULEYMANE. Cultures are being repeated. Midline changed today - catheter tip cultured. (3) Fever: Current visit: No Status: Acute As above (4) Hepatitis C antibody test positive: Current visit: No Status: Acute Follow up as outpatient (5) IV drug abuse: Current visit: No Status: Acute Abstinence encouraged Subjective Interval history since last seen: Patient reports feeling flushed/burning during vancomycin infusions. He denies any swelling of airways, shortness of breath, chest pain, dizziness, nausea. Exam Narrative Exam Narrative: General: A&OX3, laying in bed, covered in blankets, appears red HEENT: EOMI, MMM, no evidence for lip/oropharyngeal swelling Heart: RRR, no m/r/g Lungs: CTAB, no evidence of respiratory distress GI: abdomen soft, nontender, nondistended Extremities: no e/c/c BLE's Objective Objective Clinical Data: Vital Signs Temperature 37.1 C 08/28/18 11:09 Temperature Source Temporal Artery Scan 08/28/18 11:09 Pulse 104 H 08/28/18 11:09 Pulse Rhythm Regular 08/28/18 10:00 Respiratory Rate 16 08/28/18 11:09 Respiratory Effort 08/28/18 10:00 Respiratory Depth Normal 08/28/18 10:00 Respiratory Pattern Normal 08/28/18 10:00 Blood Pressure 117/77 08/28/18 11:09 Pulse Oximetry 99 08/28/18 11:09 Oxygen Delivery Method Room Air 08/28/18 11:09 Oxygen Flow Rate 0 08/28/18 11:09 Pain Level 5 08/28/18 06:22 Comment 08/25/18 07:35 Intake & Output 08/27/18 08/28/18 08/28/18 23:59 11:59 23:59 Intake Total 960 / 960 490 / 490 500 / 500 Balance 960 / 960 490 / 490 500 / 500 Weight 65.005 kg Intake: IV 250 / 250 Oral 960 / 960 240 / 240 500 / 500 Other: Comment voiding independently ad juan voiding indep Voiding Methods Toilet Toilet Laboratory Results WBC 5.17 k/cumm (4.4-10.8) 08/25/18 06:50 RBC 4.34 m/cumm (4.50-6.00) L 08/25/18 06:50 Hgb 13.0 g/dL (13.5-17.5) L 08/25/18 06:50 Hct 37.7 % (40.0-50.0) L 08/25/18 06:50 MCV 86.9 fL (80-95) 08/25/18 06:50 MCH 30.0 pg (27.0-33.0) 08/25/18 06:50 MCHC 34.5 g/dL (32.0-36.0) 08/25/18 06:50 RDW 14.3 % (11.8-14.1) H 08/25/18 06:50 Plt Count 269 x1000/uL (130-400) 08/25/18 06:50 MPV 9.1 fL (8.0-11.0) 08/25/18 06:50 Immature Gran % 0.4 08/25/18 06:50 Neutrophils % 67.3 08/25/18 06:50 Lymphocytes % 11.2 08/25/18 06:50 Monocytes % 11.6 08/25/18 06:50 Eosinophils % 9.3 08/25/18 06:50 Basophils % 0.2 08/25/18 06:50 Absolute Neutrophils 3.48 k/cumm (1.2-6.7) 08/25/18 06:50 Absolute Lymphocytes 0.58 k/cumm (1.2-3.4) L 08/25/18 06:50 Absolute Monocytes 0.60 k/cumm (0.11-0.7) 08/25/18 06:50 Absolute Eosinophils 0.48 k/cumm (0.0-0.7) 08/25/18 06:50 Absolute Basophils 0.01 k/cumm (0.0-0.2) 08/25/18 06:50 ESR 43 MM/HR (0-15) H 08/25/18 06:50 Sodium 139 mmol/L (136-145) 08/25/18 06:50 Potassium 4.0 mmol/L (3.5-5.1) 08/25/18 06:50 Chloride 103 mmol/L (98-107) 08/25/18 06:50 Carbon Dioxide 25.5 mmol/L (21.0-32.0) 08/25/18 06:50 Anion Gap 10.5 mmol/L (3-11) 08/25/18 06:50 BUN 18 mg/dL (7-18) 08/25/18 06:50 Creatinine 0.72 mg/dL (0.70-1.30) 08/28/18 11:02 Estimated GFR/1.73 m2 >= 60.00 (mL/min/1.73m2) 08/28/18 11:02 Glucose 92 mg/dL (70-100) 08/25/18 06:50 Calcium 8.9 mg/dL (8.5-10.1) 08/25/18 06:50 Total Bilirubin 0.5 mg/dL (0.2-1.0) 08/25/18 06:50 AST 99 U/L (15-37) H 08/25/18 06:50 ALT 300 U/L (12-78) H 08/25/18 06:50 Alkaline Phosphatase 182 U/L (46-116) H 08/25/18 06:50 C-Reactive Protein 0.57 mg/dL (0.0-0.3) H 08/25/18 06:50 Total Protein 6.7 g/dL (6.4-8.2) 08/25/18 06:50 Albumin 3.4 g/dL (3.4-5.0) 08/25/18 06:50 Vancomycin Trough 17.7 ug/mL (10.0-20.0) 08/28/18 11:02
[2018-08-28] MEDS: diphenhydrAMINE 25 MG CAP 50 MG PO ×2 (16:45→19:30)
[2018-08-28] MEDS: Normal Saline 50 ML 500 ML (16:50)
--- NOTE | 2018-08-28 17:10 | PDOC.CMPRO ---
- If Service Date Differs Date of service: 08/28/18 Time of Service: 17:10 Care Management Progress Note Kevin had a new midline placed today. No change in plan at this time. CM will continue to offer support to patient and care team regarding discharge planning and disposition.
[2018-08-28] MEDS: Nicotine 7 MG/24 HR PATCH TD (17:34)
[2018-08-28 19:24] VITALS: BP 121/79; PULSE 110; RESP 16; TEMP 38.2; O2SAT 98
[2018-08-28 20:59] VITALS: TEMP 37.4
[2018-08-28] MEDS: Melatonin 3 MG TAB PO (22:16)
[2018-08-29] MEDS: diphenhydrAMINE 25 MG CAP 50 MG PO ×3 (03:34→19:50)
[2018-08-29 03:35] VITALS: BP 100/66; PULSE 90; RESP 16; TEMP 36.2; O2SAT 100
[2018-08-29] MEDS: VANCOMYCIN 1,000 MG in Normal Saline 250 ML 100 MG IVPB (04:04)
[2018-08-29] MEDS: Normal Saline Flush 10 ML SYR IVP ×4 (04:04→22:10)
[2018-08-29] MEDS: Ibuprofen 600 MG TAB PO ×3 (07:07→22:10)
[2018-08-29 07:20] VITALS: BP 103/65; PULSE 98; RESP 18; TEMP 37; O2SAT 99
[2018-08-29] MEDS: Cyclobenzaprine 10 MG TAB PO ×3 (08:35→22:10)
[2018-08-29] MEDS: Varenicline 1 MG TAB 0.5 MG PO ×2 (08:35→18:23)
[2018-08-29] MEDS: VANCOMYCIN 1,000 MG in Normal Saline 250 ML 85 MG IVPB ×2 (12:17→20:19)
[2018-08-29 15:44] VITALS: BP 126/80; PULSE 105; RESP 18; TEMP 37.6; O2SAT 100
--- NOTE | 2018-08-29 16:24 | NUR.NOTE ---
Nursing Note: Patient complains that I feel like I am on fire, burning and tingling. Temp was 37.2, rash looks no different than earlier assessment. Reviewed this with Dr. Chase as she was present as I was leaving the patients room, she feels it is another instance of christin syndrome, and to make sure that patient receives both the Zantac, and Benadryl, prior to the next infusion of the Vancomycin
[2018-08-29] MEDS: Nicotine 7 MG/24 HR PATCH TD (18:22)
--- NOTE | 2018-08-29 18:40 | PGE_ITS ---
Subjective Interval history since last seen: Patient continues to have some flushing during /after infusions of vancomycin, but this got better with premedication with benadryl and slowing down the rate of vancomycin. I added ranitidine to the premedication regimen today. There is no evidence of systemic anaphylactic reaction - the patient reports no airway swelling/difficulty swallowing. Objective Objective Clinical Data: Vital Signs Temperature 37.6 C H 08/29/18 15:44 Temperature Source Tympanic 08/29/18 15:44 Pulse 105 H 08/29/18 15:44 Pulse Rhythm Regular 08/29/18 09:45 Respiratory Rate 18 08/29/18 15:44 Respiratory Effort 08/29/18 09:45 Respiratory Depth Normal 08/29/18 09:45 Respiratory Pattern Normal 08/29/18 09:45 Blood Pressure 126/80 08/29/18 15:44 Pulse Oximetry 100 08/29/18 15:44 Oxygen Delivery Method Room Air 08/29/18 15:44 Oxygen Flow Rate 0 08/29/18 15:44 Pain Level 4 08/29/18 16:12 Comment 08/25/18 07:35 Intake & Output 08/28/18 08/29/18 08/29/18 23:59 11:59 23:59 Intake Total 1320 / 1320 450 / 450 Balance 1320 / 1320 450 / 450 Intake: IV 500 / 500 250 / 250 Oral 820 / 820 200 / 200 Other: Urine Appearance Clear Clear Comment Pt voids ind. Voiding Methods Toilet Toilet Laboratory Results WBC 5.17 k/cumm (4.4-10.8) 08/25/18 06:50 RBC 4.34 m/cumm (4.50-6.00) L 08/25/18 06:50 Hgb 13.0 g/dL (13.5-17.5) L 08/25/18 06:50 Hct 37.7 % (40.0-50.0) L 08/25/18 06:50 MCV 86.9 fL (80-95) 08/25/18 06:50 MCH 30.0 pg (27.0-33.0) 08/25/18 06:50 MCHC 34.5 g/dL (32.0-36.0) 08/25/18 06:50 RDW 14.3 % (11.8-14.1) H 08/25/18 06:50 Plt Count 269 x1000/uL (130-400) 08/25/18 06:50 MPV 9.1 fL (8.0-11.0) 08/25/18 06:50 Immature Gran % 0.4 08/25/18 06:50 Neutrophils % 67.3 08/25/18 06:50 Lymphocytes % 11.2 08/25/18 06:50 Monocytes % 11.6 08/25/18 06:50 Eosinophils % 9.3 08/25/18 06:50 Basophils % 0.2 08/25/18 06:50 Absolute Neutrophils 3.48 k/cumm (1.2-6.7) 08/25/18 06:50 Absolute Lymphocytes 0.58 k/cumm (1.2-3.4) L 08/25/18 06:50 Absolute Monocytes 0.60 k/cumm (0.11-0.7) 08/25/18 06:50 Absolute Eosinophils 0.48 k/cumm (0.0-0.7) 08/25/18 06:50 Absolute Basophils 0.01 k/cumm (0.0-0.2) 08/25/18 06:50 ESR 43 MM/HR (0-15) H 08/25/18 06:50 Sodium 139 mmol/L (136-145) 08/25/18 06:50 Potassium 4.0 mmol/L (3.5-5.1) 08/25/18 06:50 Chloride 103 mmol/L (98-107) 08/25/18 06:50 Carbon Dioxide 25.5 mmol/L (21.0-32.0) 08/25/18 06:50 Anion Gap 10.5 mmol/L (3-11) 08/25/18 06:50 BUN 18 mg/dL (7-18) 08/25/18 06:50 Creatinine 0.72 mg/dL (0.70-1.30) 08/28/18 11:02 Estimated GFR/1.73 m2 >= 60.00 (mL/min/1.73m2) 08/28/18 11:02 Glucose 92 mg/dL (70-100) 08/25/18 06:50 Calcium 8.9 mg/dL (8.5-10.1) 08/25/18 06:50 Total Bilirubin 0.5 mg/dL (0.2-1.0) 08/25/18 06:50 AST 99 U/L (15-37) H 08/25/18 06:50 ALT 300 U/L (12-78) H 08/25/18 06:50 Alkaline Phosphatase 182 U/L (46-116) H 08/25/18 06:50 C-Reactive Protein 0.57 mg/dL (0.0-0.3) H 08/25/18 06:50 Total Protein 6.7 g/dL (6.4-8.2) 08/25/18 06:50 Albumin 3.4 g/dL (3.4-5.0) 08/25/18 06:50 Vancomycin Trough 17.7 ug/mL (10.0-20.0) 08/28/18 11:02
--- NOTE | 2018-08-29 19:09 | NUR.NOTE ---
Nursing Note: This morning with assessment it was noted that the patients left parotid was swollen. this was brought to the attention of the clinical child adolescent care, awaiting new orders
[2018-08-29] MEDS: Melatonin 3 MG TAB PO (22:09)
--- NOTE | 2018-08-30 00:25 | NUR.NOTE ---
Nursing Note:Pt reported bubbles on his arms after his dose of vanco this evening. Assessed pt and do not observe blisters or large bumps, but there may be very slight fine raised areas on his arms. They are not palpable.
[2018-08-30] MEDS: Normal Saline Flush 10 ML SYR IVP ×2 (03:25→21:07)
[2018-08-30] MEDS: diphenhydrAMINE 25 MG CAP 50 MG PO ×3 (03:25→21:07)
[2018-08-30 03:26] VITALS: BP 99/64; PULSE 91; RESP 16; O2SAT 98
[2018-08-30] MEDS: VANCOMYCIN 1,000 MG in Normal Saline 250 ML 167 MG IVPB (03:59)
--- NOTE | 2018-08-30 04:01 | NUR.NOTE ---
Kin run at 157cc.hr for 2 doses this shift at request of pt, nurse billing manager in room for first request and is ok with doing this. Nursing Note:
[2018-08-30 07:30] VITALS: BP 105/69; PULSE 94; RESP 18; TEMP 37.1; O2SAT 100
[2018-08-30] MEDS: Varenicline 1 MG TAB 0.5 MG PO (08:20)
[2018-08-30] MEDS: Ibuprofen 600 MG TAB PO ×2 (08:20→16:41)
--- NOTE | 2018-08-30 09:43 | NUR.NOTE ---
Patient was given motrin this morning for a headache that was 6- 10. This was unresolved with the prn medication. Patient requested something esle to help with the pain, this was passed on to the clinical health care / medical job titles, , I will look for new orders Nursing Note:
--- NOTE | 2018-08-30 12:54 | NUR.NOTE ---
Nursing Note: At this time due to provider order, vancomycin is being held
[2018-08-30 16:13] VITALS: BP 123/79; PULSE 101; RESP 18; TEMP 36.4; O2SAT 98
[2018-08-30] MEDS: LINEZOLID 600 MG/300 ML BAG 300 MG IVPB (16:14)
--- NOTE | 2018-08-30 18:46 | NUR.NOTE ---
Nursing Note: patients abx was changed today, and other medications dc'd
--- NOTE | 2018-08-30 20:12 | W.PM.PROGNOT ---
Subjective Interval history since last seen: The patient continues to report sensations of burning/flushing/itching with every vancomycin infusion. I have contacted [facility] - the recommendation is to switch the patient to linezolid. D/c flexeril/vancomycin. Monitor for recurrence of fever. Finish the originally planned course of abx of 6 weeks from the first negative blood cultures in July. Additionally, the patient reports a fungal infection in his feet and would like a cream. He discussed his insomnia with me and is willing to give melatonin a longer try. He complains of a headache - willing to wait to see if it would go away now that vancomycin is stopped. Objective Objective Clinical Data: Vital Signs Temperature 36.4 C L 08/30/18 16:13 Temperature Source Tympanic 08/30/18 16:13 Pulse 101 H 08/30/18 16:13 Pulse Rhythm Regular 08/30/18 09:49 Respiratory Rate 18 08/30/18 16:13 Respiratory Effort 08/30/18 09:49 Respiratory Depth Normal 08/30/18 09:49 Respiratory Pattern Normal 08/30/18 09:49 Blood Pressure 123/79 08/30/18 16:13 Pulse Oximetry 98 08/30/18 16:13 Oxygen Delivery Method Room Air 08/30/18 16:13 Oxygen Flow Rate 0 08/30/18 16:13 Pain Level 4 08/30/18 16:41 Comment 08/30/18 07:30 Intake & Output 08/29/18 08/30/18 08/30/18 23:59 11:59 23:59 Intake Total 1000 / 1000 800 / 800 950 / 950 Balance 1000 / 1000 800 / 800 950 / 950 Intake: IV 520 / 520 Oral 480 / 480 800 / 800 950 / 950 Other: Urine Appearance Clear Voiding Methods Toilet Laboratory Results WBC 5.17 k/cumm (4.4-10.8) 08/25/18 06:50 RBC 4.34 m/cumm (4.50-6.00) L 08/25/18 06:50 Hgb 13.0 g/dL (13.5-17.5) L 08/25/18 06:50 Hct 37.7 % (40.0-50.0) L 08/25/18 06:50 MCV 86.9 fL (80-95) 08/25/18 06:50 MCH 30.0 pg (27.0-33.0) 08/25/18 06:50 MCHC 34.5 g/dL (32.0-36.0) 08/25/18 06:50 RDW 14.3 % (11.8-14.1) H 08/25/18 06:50 Plt Count 269 x1000/uL (130-400) 08/25/18 06:50 MPV 9.1 fL (8.0-11.0) 08/25/18 06:50 Immature Gran % 0.4 08/25/18 06:50 Neutrophils % 67.3 08/25/18 06:50 Lymphocytes % 11.2 08/25/18 06:50 Monocytes % 11.6 08/25/18 06:50 Eosinophils % 9.3 08/25/18 06:50 Basophils % 0.2 08/25/18 06:50 Absolute Neutrophils 3.48 k/cumm (1.2-6.7) 08/25/18 06:50 Absolute Lymphocytes 0.58 k/cumm (1.2-3.4) L 08/25/18 06:50 Absolute Monocytes 0.60 k/cumm (0.11-0.7) 08/25/18 06:50 Absolute Eosinophils 0.48 k/cumm (0.0-0.7) 08/25/18 06:50 Absolute Basophils 0.01 k/cumm (0.0-0.2) 08/25/18 06:50 ESR 43 MM/HR (0-15) H 08/25/18 06:50 Sodium 139 mmol/L (136-145) 08/25/18 06:50 Potassium 4.0 mmol/L (3.5-5.1) 08/25/18 06:50 Chloride 103 mmol/L (98-107) 08/25/18 06:50 Carbon Dioxide 25.5 mmol/L (21.0-32.0) 08/25/18 06:50 Anion Gap 10.5 mmol/L (3-11) 08/25/18 06:50 BUN 18 mg/dL (7-18) 08/25/18 06:50 Creatinine 0.72 mg/dL (0.70-1.30) 08/28/18 11:02 Estimated GFR/1.73 m2 >= 60.00 (mL/min/1.73m2) 08/28/18 11:02 Glucose 92 mg/dL (70-100) 08/25/18 06:50 Calcium 8.9 mg/dL (8.5-10.1) 08/25/18 06:50 Total Bilirubin 0.5 mg/dL (0.2-1.0) 08/25/18 06:50 AST 99 U/L (15-37) H 08/25/18 06:50 ALT 300 U/L (12-78) H 08/25/18 06:50 Alkaline Phosphatase 182 U/L (46-116) H 08/25/18 06:50 C-Reactive Protein 0.57 mg/dL (0.0-0.3) H 08/25/18 06:50 Total Protein 6.7 g/dL (6.4-8.2) 08/25/18 06:50 Albumin 3.4 g/dL (3.4-5.0) 08/25/18 06:50 Vancomycin Trough 17.7 ug/mL (10.0-20.0) 08/28/18 11:02
--- NOTE | 2018-08-30 20:17 | PGE_ITS ---
Subjective Interval history since last seen: The patient continues to report sensations of burning/flushing/itching with every vancomycin infusion. I have contacted [facility] [place] [facility] - the recommendation is to switch the patient to linezolid. D/c flexeril/ vancomycin. Monitor for recurrence of fever. Finish the originally planned course of abx of 6 weeks from the first negative blood cultures in July. Additionally, the patient reports a fungal infection in his feet and would like a cream. He discussed his insomnia with me and is willing to give melatonin a longer try. He complains of a headache - willing to wait to see if it would go away now that vancomycin is stopped. Objective Objective Clinical Data: Vital Signs Temperature 36.4 C L 08/30/18 16:13 Temperature Source Tympanic 08/30/18 16:13 Pulse 101 H 08/30/18 16:13 Pulse Rhythm Regular 08/30/18 09:49 Respiratory Rate 18 08/30/18 16:13 Respiratory Effort 08/30/18 09:49 Respiratory Depth Normal 08/30/18 09:49 Respiratory Pattern Normal 08/30/18 09:49 Blood Pressure 123/79 08/30/18 16:13 Pulse Oximetry 98 08/30/18 16:13 Oxygen Delivery Method Room Air 08/30/18 16:13 Oxygen Flow Rate 0 08/30/18 16:13 Pain Level 4 08/30/18 16:41 Comment 08/30/18 07:30 Intake & Output 08/29/18 08/30/18 08/30/18 23:59 11:59 23:59 Intake Total 1000 / 1000 800 / 800 950 / 950 Balance 1000 / 1000 800 / 800 950 / 950 Intake: IV 520 / 520 Oral 480 / 480 800 / 800 950 / 950 Other: Urine Appearance Clear Voiding Methods Toilet Laboratory Results WBC 5.17 k/cumm (4.4-10.8) 08/25/18 06:50 RBC 4.34 m/cumm (4.50-6.00) L 08/25/18 06:50 Hgb 13.0 g/dL (13.5-17.5) L 08/25/18 06:50 Hct 37.7 % (40.0-50.0) L 08/25/18 06:50 MCV 86.9 fL (80-95) 08/25/18 06:50 MCH 30.0 pg (27.0-33.0) 08/25/18 06:50 MCHC 34.5 g/dL (32.0-36.0) 08/25/18 06:50 RDW 14.3 % (11.8-14.1) H 08/25/18 06:50 Plt Count 269 x1000/uL (130-400) 08/25/18 06:50 MPV 9.1 fL (8.0-11.0) 08/25/18 06:50 Immature Gran % 0.4 08/25/18 06:50 Neutrophils % 67.3 08/25/18 06:50 Lymphocytes % 11.2 08/25/18 06:50 Monocytes % 11.6 08/25/18 06:50 Eosinophils % 9.3 08/25/18 06:50 Basophils % 0.2 08/25/18 06:50 Absolute Neutrophils 3.48 k/cumm (1.2-6.7) 08/25/18 06:50 Absolute Lymphocytes 0.58 k/cumm (1.2-3.4) L 08/25/18 06:50 Absolute Monocytes 0.60 k/cumm (0.11-0.7) 08/25/18 06:50 Absolute Eosinophils 0.48 k/cumm (0.0-0.7) 08/25/18 06:50 Absolute Basophils 0.01 k/cumm (0.0-0.2) 08/25/18 06:50 ESR 43 MM/HR (0-15) H 08/25/18 06:50 Sodium 139 mmol/L (136-145) 08/25/18 06:50 Potassium 4.0 mmol/L (3.5-5.1) 08/25/18 06:50 Chloride 103 mmol/L (98-107) 08/25/18 06:50 Carbon Dioxide 25.5 mmol/L (21.0-32.0) 08/25/18 06:50 Anion Gap 10.5 mmol/L (3-11) 08/25/18 06:50 BUN 18 mg/dL (7-18) 08/25/18 06:50 Creatinine 0.72 mg/dL (0.70-1.30) 08/28/18 11:02 Estimated GFR/1.73 m2 >= 60.00 (mL/min/1.73m2) 08/28/18 11:02 Glucose 92 mg/dL (70-100) 08/25/18 06:50 Calcium 8.9 mg/dL (8.5-10.1) 08/25/18 06:50 Total Bilirubin 0.5 mg/dL (0.2-1.0) 08/25/18 06:50 AST 99 U/L (15-37) H 08/25/18 06:50 ALT 300 U/L (12-78) H 08/25/18 06:50 Alkaline Phosphatase 182 U/L (46-116) H 08/25/18 06:50 C-Reactive Protein 0.57 mg/dL (0.0-0.3) H 08/25/18 06:50 Total Protein 6.7 g/dL (6.4-8.2) 08/25/18 06:50 Albumin 3.4 g/dL (3.4-5.0) 08/25/18 06:50 Vancomycin Trough 17.7 ug/mL (10.0-20.0) 08/28/18 11:02
[2018-08-30] MEDS: Melatonin 3 MG TAB PO (21:07)
[2018-08-31 00:20] VITALS: BP 115/72; PULSE 90; RESP 17; TEMP 36; O2SAT 100
[2018-08-31] MEDS: diphenhydrAMINE 25 MG CAP 50 MG PO ×3 (04:27→20:26)
[2018-08-31] MEDS: LINEZOLID 600 MG/300 ML BAG 300 MG IVPB ×2 (05:00→16:33)
[2018-08-31] MEDS: Ibuprofen 600 MG TAB PO ×3 (05:00→20:26)
[2018-08-31 08:42] VITALS: BP 122/76; PULSE 101; RESP 20; TEMP 36.4; O2SAT 97
[2018-08-31] MEDS: Clotrimazole 1% 15 GM TUBE TP ×2 (08:43→20:27)
--- NOTE | 2018-08-31 11:36 | CMACTNOTE_ITS ---
- If Service Date Differs Date of service: 08/31/18 Time of Service: 11:29 Care Management Activity Note Kevin was lying in bed when CM visited him this morning. He has recently been started on the antibiotic linezolid and per MD, will receieve 48 hours IV administration, prior to switching to PO. He has a raised rash on his left arm and his bilateral feet are reddened, possibly due to his vancomycin treatment, which has been discontinued. MD aware of Kevin symptoms. Anticipate patient will discharge with PO linezolid and follow up with his PCP. CM faxed prior authorization to Medicaid for antibiotic. Kevin continues on SB1 status He enjoys using the [employer] Laptop issued to him, and talks with friends on the phone and visitors in person. He continues to be offered music therapy, pet therapy and Reiki as well. CM will continue to offer support to patient and care team regarding discharge planning and disposition.
[2018-08-31] MEDS: Normal Saline Flush 10 ML SYR IVP ×2 (13:35→16:34)
[2018-08-31 14:09] LABS: ALT 282 U/L (12-78); AST 86 U/L (15-37); Albumin 3.3 g/dL (3.4-5.0); Alkaline Phosphatase 187 U/L (46-116); BUN 20 mg/dL (7-18); Bilirubin, Direct 0.11 mg/dL (0.00-0.20); Bilirubin, Total 0.5 mg/dL (0.2-1.0); CREATININE 0.89 mg/dL (0.70-1.30); Calcium 8.5 mg/dL (8.5-10.1); Chloride 102 mmol/L (98-107); Glucose 104 mg/dL (70-100); Potassium 3.8 mmol/L (3.5-5.1); Sodium 139 mmol/L (136-145); Total Protein 6.3 g/dL (6.4-8.2)
[2018-08-31] MEDS: Hydrocortisone 1% CR 30 GM TUBE TP ×2 (14:32→20:26)
--- NOTE | 2018-08-31 15:36 | PDOC.CMPRO ---
- If Service Date Differs Date of service: 08/31/18 Time of Service: 15:36 Care Management Progress Note CM faxed prior authorization for patient's linezolid (zyvox) to the [facility] on 08/31/2018 at [id number].
[2018-08-31 15:51] VITALS: BP 118/80; PULSE 101; RESP 17; TEMP 36.8; O2SAT 100
[2018-08-31 16:38] LABS: HCT 38.7 % (40.0-50.0); HGB 13.4 g/dL (13.5-17.5); Mean Corp. HGB Concentration 34.6 g/dL (32.0-36.0); Mean Corpuscular Hemoglobin 30.2 pg (27.0-33.0); Mean Corpuscular Volume 87.4 fL (80-95); Mean Platelet Volume 9.4 fL (8.0-11.0); Platelet Count 272 x1000/uL (130-400); RBC 4.43 m/cumm (4.50-6.00); RBC Distribution Width 14.7 % (11.8-14.1); White Blood Cell Count 7.05 k/cumm (4.4-10.8)
[2018-08-31 16:59] LABS: Absolute Basophil Count 0.07 k/cumm (0.0-0.2); Absolute Eosinophil Count 1.48 k/cumm (0.0-0.7); Absolute Lymphocyte Count 0.63 k/cumm (1.2-3.4); Absolute Monocyte Count 0.71 k/cumm (0.11-0.7); Absolute Neutrophil Count 4.16 k/cumm (1.2-6.7); Atypical Lymphocytes % 3; Diff Comment Manual Differential; RBC Morphology Normal
--- NOTE | 2018-08-31 18:36 | PGE_ITS ---
Assessment and Plan (1) DRESS syndrome: Current visit: Yes Status: Acute As evidenced by rash, eosinophilia, fevers and the lymphadenopathy - the patient did report a tender lymph node under his chin on the left. Vancomycin d/c'ed yesterday. I rx'ed topical steroids for the cutaneous symptoms. Will monitor blood work. (2) Endocarditis: Current visit: No Status: Acute Due to Microbacteria - continue linezolid. (3) Insomnia: Current visit: Yes Status: Acute Continue melatonin (4) Hepatitis C antibody test positive: Current visit: No Status: Acute Follow up as outpatient. Unclear how much of the transaminitis is due to this or to the DRESS syndrome. Subjective Interval history since last seen: The patient reports that he developed an itchy rash throughout his body sometime yesterday afternoon, before he took linezolid. He denies any oral lesions, shortness of breath, chest pain, nausea, vomiting, abdominal pain. Exam Narrative Exam Narrative: General: Very pleasant male, visibly covered with a confluent macular rash HEENT: EOMI, MMM, no oral lesions Heart: RRR, no m/r/g Lungs: CTAB GI: abdomen soft, nontender,nondistended Extremities; no edema, clubbing, or cyanosis Objective Objective Clinical Data: Abnormal lab results 08/31/18 08/31/18 Range/Units 13:40 16:24 RBC 4.43 L (4.50-6.00) m/cumm Hgb 13.4 L (13.5-17.5) g/dL Hct 38.7 L (40.0-50.0) % RDW 14.7 H (11.8-14.1) % Absolute Lymphocytes 0.63 L (1.2-3.4) k/cumm Absolute Monocytes 0.71 H (0.11-0.7) k/cumm Absolute Eosinophils 1.48 H (0.0-0.7) k/cumm BUN 20 H (7-18) mg/dL Glucose 104 H (70-100) mg/dL AST 86 H (15-37) U/L ALT 282 H (12-78) U/L Alkaline Phosphatase 187 H (46-116) U/L Total Protein 6.3 L (6.4-8.2) g/dL Albumin 3.3 L (3.4-5.0) g/dL Vital Signs Temperature 36.8 C 08/31/18 15:51 Temperature Source Tympanic 08/31/18 15:51 Pulse 101 H 08/31/18 15:51 Pulse Rhythm Regular 08/30/18 22:35 Respiratory Rate 17 08/31/18 15:51 Respiratory Effort 08/30/18 22:35 Respiratory Depth Normal 08/30/18 22:35 Respiratory Pattern Normal 08/30/18 22:35 Blood Pressure 118/80 08/31/18 15:51 Pulse Oximetry 100 08/31/18 15:51 Oxygen Delivery Method Room Air 08/31/18 15:51 Oxygen Flow Rate 0 08/31/18 15:51 Pain Level 3 08/31/18 11:50 Comment 08/30/18 07:30 Intake & Output 08/30/18 08/31/18 08/31/18 23:59 11:59 23:59 Intake Total 1250 / 1250 900 / 900 840 / 840 Balance 1250 / 1250 900 / 900 840 / 840 Intake: IV 300 / 300 300 / 300 Oral 950 / 950 600 / 600 840 / 840 Other: Voiding Methods Toilet Laboratory Results WBC 7.05 k/cumm (4.4-10.8) 08/31/18 16:24 RBC 4.43 m/cumm (4.50-6.00) L 08/31/18 16:24 Hgb 13.4 g/dL (13.5-17.5) L 08/31/18 16:24 Hct 38.7 % (40.0-50.0) L 08/31/18 16:24 MCV 87.4 fL (80-95) 08/31/18 16:24 MCH 30.2 pg (27.0-33.0) 08/31/18 16:24 MCHC 34.6 g/dL (32.0-36.0) 08/31/18 16:24 RDW 14.7 % (11.8-14.1) H 08/31/18 16:24 Plt Count 272 x1000/uL (130-400) 08/31/18 16:24 MPV 9.4 fL (8.0-11.0) 08/31/18 16:24 Abs Immat Gran (auto) Cancelled 08/31/18 15:10 Immature Gran % 0.0 08/31/18 16:24 Neutrophils % 42.0 08/31/18 16:24 Lymphocytes % 6.0 08/31/18 16:24 Monocytes % 10.0 08/31/18 16:24 Eosinophils % 21.0 08/31/18 16:24 Basophils % 1.0 08/31/18 16:24 Absolute Neutrophils 4.16 k/cumm (1.2-6.7) 08/31/18 16:24 Band Neutrophils 17.0 % 08/31/18 16:24 Absolute Lymphocytes 0.63 k/cumm (1.2-3.4) L 08/31/18 16:24 Absolute Monocytes 0.71 k/cumm (0.11-0.7) H 08/31/18 16:24 Absolute Eosinophils 1.48 k/cumm (0.0-0.7) H 08/31/18 16:24 Absolute Basophils 0.07 k/cumm (0.0-0.2) 08/31/18 16:24 Metamyelocytes Cancelled 08/31/18 15:10 Myelocytes Cancelled 08/31/18 15:10 Promyelocytes Cancelled 08/31/18 15:10 Nucleated RBCs Cancelled 08/31/18 15:10 Differential Comment Manual differential 08/31/18 16:24 Atypical Lymphocytes 3 08/31/18 16:24 Other Cell Type Cancelled 08/31/18 15:10 RBC Morphology Normal 08/31/18 16:24 Polychromasia Cancelled 08/31/18 15:10 Hypochromasia Cancelled 08/31/18 15:10 Poikilocytosis Cancelled 08/31/18 15:10 Basophilic Stippling Cancelled 08/31/18 15:10 Anisocytosis Cancelled 08/31/18 15:10 Microcytosis Cancelled 08/31/18 15:10 Macrocytosis Cancelled 08/31/18 15:10 Spherocytes Cancelled 08/31/18 15:10 Target Cells Cancelled 08/31/18 15:10 Tear Drop Cells Cancelled 08/31/18 15:10 Ovalocytes Cancelled 08/31/18 15:10 Stomatocytes Cancelled 08/31/18 15:10 [place] Bodies Cancelled 08/31/18 15:10 Denis Cells Cancelled 08/31/18 15:10 Acanthocytes (Spur) Cancelled 08/31/18 15:10 Schistocytes Cancelled 08/31/18 15:10 ESR 43 MM/HR (0-15) H 08/25/18 06:50 Sodium 139 mmol/L (136-145) 08/31/18 13:40 Potassium 3.8 mmol/L (3.5-5.1) 08/31/18 13:40 Chloride 102 mmol/L (98-107) 08/31/18 13:40 Carbon Dioxide 29.0 mmol/L (21.0-32.0) 08/31/18 13:40 Anion Gap 8.0 mmol/L (3-11) 08/31/18 13:40 BUN 20 mg/dL (7-18) H 08/31/18 13:40 Creatinine 0.89 mg/dL (0.70-1.30) 08/31/18 13:40 Estimated GFR/1.73 m2 >= 60.00 (mL/min/1.73m2) 08/31/18 13:40 Glucose 104 mg/dL (70-100) H 08/31/18 13:40 Calcium 8.5 mg/dL (8.5-10.1) 08/31/18 13:40 Total Bilirubin 0.5 mg/dL (0.2-1.0) 08/31/18 13:40 Conjugated Bilirubin 0.11 mg/dL (0.00-0.20) 08/31/18 13:40 AST 86 U/L (15-37) H 08/31/18 13:40 ALT 282 U/L (12-78) H 08/31/18 13:40 Alkaline Phosphatase 187 U/L (46-116) H 08/31/18 13:40 C-Reactive Protein 0.57 mg/dL (0.0-0.3) H 08/25/18 06:50 Total Protein 6.3 g/dL (6.4-8.2) L 08/31/18 13:40 Albumin 3.3 g/dL (3.4-5.0) L 08/31/18 13:40 Vancomycin Trough 17.7 ug/mL (10.0-20.0) 08/28/18 11:02
[2018-08-31 20:13] VITALS: BP 130/85; PULSE 107; RESP 18; TEMP 37.8; O2SAT 99
[2018-08-31] MEDS: Mylanta Suspension 30 ML CUP PO (20:26)
[2018-08-31] MEDS: Melatonin 3 MG TAB PO (21:38)
[2018-09-01] MEDS: diphenhydrAMINE 25 MG CAP 50 MG PO ×3 (03:58→18:32)
[2018-09-01] MEDS: LINEZOLID 600 MG/300 ML BAG 300 MG IVPB (03:58)
[2018-09-01] MEDS: Normal Saline Flush 10 ML SYR IVP (03:59)
[2018-09-01] MEDS: Ibuprofen 600 MG TAB PO ×3 (05:31→19:13)
[2018-09-01] MEDS: Hydrocortisone 1% CR 30 GM TUBE TP ×2 (07:03→18:32)
[2018-09-01 07:45] VITALS: BP 115/76; PULSE 102; RESP 20; TEMP 36.7; O2SAT 99
[2018-09-01] MEDS: Clotrimazole 1% 15 GM TUBE TP ×2 (09:08→19:13)
[2018-09-01 11:38] LABS: Abs Immature Grans 0.06 k/cumm (0.0-0.09); HCT 36.5 % (40.0-50.0); HGB 12.6 g/dL (13.5-17.5); Mean Corp. HGB Concentration 34.5 g/dL (32.0-36.0); Mean Corpuscular Hemoglobin 30.4 pg (27.0-33.0); Mean Platelet Volume 9.6 fL (8.0-11.0); Platelet Count 259 x1000/uL (130-400); RBC 4.15 m/cumm (4.50-6.00); RBC Distribution Width 14.6 % (11.8-14.1); White Blood Cell Count 6.64 k/cumm (4.4-10.8)
[2018-09-01 11:45] LABS: Anion Gap 7.1 mmol/L (3-11); BUN 18 mg/dL (7-18); CO2 29.9 mmol/L (21.0-32.0); CREATININE 0.83 mg/dL (0.70-1.30); Calcium 8.6 mg/dL (8.5-10.1); Chloride 101 mmol/L (98-107); Glucose 94 mg/dL (70-100); Potassium 4.1 mmol/L (3.5-5.1); Sodium 138 mmol/L (136-145)
[2018-09-01 11:49] LABS: ALT 228 U/L (12-78); AST 64 U/L (15-37); Alkaline Phosphatase 177 U/L (46-116); Bilirubin, Total 0.5 mg/dL (0.2-1.0); Total Protein 5.7 g/dL (6.4-8.2)
[2018-09-01 12:05] LABS: Absolute Basophil Count 0.07 k/cumm (0.0-0.2); Absolute Eosinophil Count 1.39 k/cumm (0.0-0.7); Absolute Neutrophil Count 3.78 k/cumm (1.2-6.7)
[2018-09-01 12:06] LABS: Diff Comment Manual Differential; RBC Morphology Normal
[2018-09-01] MEDS: predniSONE 20 MG TAB 40 MG PO (14:30)
[2018-09-01 15:47] VITALS: BP 106/67; PULSE 98; RESP 20; TEMP 37.2; O2SAT 100
--- NOTE | 2018-09-01 19:49 | W.PM.PROGNOT ---
Subjective Interval history since last seen: The patient states he no longer wants to take any antibiotics at all. He understands that there is a risk of recurrence of infection because he wouldn't have completed his course but he feels that antibiotics do not agree with his body. His rash is not any better with topical steroids. He would like to make sure that the blood cultures collected today after he had spiked a temperature of 37.8 yesterday evening - he stated he felt wiped out. If today's blood cultures are negative, he would like to go home tomorrow. He agrees to take oral steroids to see if they will help with his rash, but he was advised that the rash can take weeks to go away. He denies any shortness of breath, abdominal symptoms. He states his headache is getting better. Objective Objective Clinical Data: Abnormal lab results 09/01/18 09/01/18 Range/Units 11:10 11:25 RBC 4.15 L (4.50-6.00) m/cumm Hgb 12.6 L (13.5-17.5) g/dL Hct 36.5 L (40.0-50.0) % RDW 14.6 H (11.8-14.1) % Absolute Lymphocytes 0.60 L (1.2-3.4) k/cumm Absolute Monocytes 0.80 H (0.11-0.7) k/cumm Absolute Eosinophils 1.39 H (0.0-0.7) k/cumm AST 64 H (15-37) U/L ALT 228 H (12-78) U/L Alkaline Phosphatase 177 H (46-116) U/L Total Protein 5.7 L (6.4-8.2) g/dL Albumin 3.0 L (3.4-5.0) g/dL Vital Signs Temperature 37.2 C 09/01/18 15:47 Temperature Source Tympanic 09/01/18 15:47 Pulse 98 H 09/01/18 15:47 Pulse Rhythm Regular 09/01/18 09:10 Respiratory Rate 20 09/01/18 15:47 Respiratory Effort Non-Labored 09/01/18 09:10 Respiratory Depth Normal 09/01/18 09:10 Respiratory Pattern Normal 09/01/18 09:10 Blood Pressure 106/67 09/01/18 15:47 Pulse Oximetry 100 09/01/18 15:47 Oxygen Delivery Method Room Air 09/01/18 15:47 Oxygen Flow Rate 0 09/01/18 15:47 Pain Level 2 09/01/18 15:47 Comment 08/30/18 07:30 Intake & Output 08/31/18 09/01/18 09/01/18 23:59 11:59 23:59 Intake Total 1620 / 1620 800 / 800 1460 / 1460 Balance 1620 / 1620 800 / 800 1460 / 1460 Intake: IV 300 / 300 300 / 300 Oral 1320 / 1320 500 / 500 1460 / 1460 Other: Voiding Methods Toilet Laboratory Results WBC 6.64 k/cumm (4.4-10.8) 09/01/18 11:25 RBC 4.15 m/cumm (4.50-6.00) L 09/01/18 11:25 Hgb 12.6 g/dL (13.5-17.5) L 09/01/18 11:25 Hct 36.5 % (40.0-50.0) L 09/01/18 11:25 MCV 88.0 fL (80-95) 09/01/18 11:25 MCH 30.4 pg (27.0-33.0) 09/01/18 11:25 MCHC 34.5 g/dL (32.0-36.0) 09/01/18 11:25 RDW 14.6 % (11.8-14.1) H 09/01/18 11:25 Plt Count 259 x1000/uL (130-400) 09/01/18 11:25 MPV 9.6 fL (8.0-11.0) 09/01/18 11:25 Abs Immat Gran (auto) Cancelled 08/31/18 15:10 Immature Gran % 0.0 09/01/18 11:25 Neutrophils % 28.0 09/01/18 11:25 Lymphocytes % 9.0 09/01/18 11:25 Monocytes % 12.0 09/01/18 11:25 Eosinophils % 21.0 09/01/18 11:25 Basophils % 1.0 09/01/18 11:25 Absolute Neutrophils 3.78 k/cumm (1.2-6.7) 09/01/18 11:25 Band Neutrophils 29.0 % 09/01/18 11:25 Absolute Lymphocytes 0.60 k/cumm (1.2-3.4) L 09/01/18 11:25 Absolute Monocytes 0.80 k/cumm (0.11-0.7) H 09/01/18 11:25 Absolute Eosinophils 1.39 k/cumm (0.0-0.7) H 09/01/18 11:25 Absolute Basophils 0.07 k/cumm (0.0-0.2) 09/01/18 11:25 Metamyelocytes Cancelled 08/31/18 15:10 Myelocytes Cancelled 08/31/18 15:10 Promyelocytes Cancelled 08/31/18 15:10 Nucleated RBCs Cancelled 08/31/18 15:10 Differential Comment Manual differential 09/01/18 11:25 Atypical Lymphocytes 3 08/31/18 16:24 Other Cell Type Cancelled 08/31/18 15:10 RBC Morphology Normal 09/01/18 11:25 Polychromasia Cancelled 08/31/18 15:10 Hypochromasia Cancelled 08/31/18 15:10 Poikilocytosis Cancelled 08/31/18 15:10 Basophilic Stippling Cancelled 08/31/18 15:10 Anisocytosis Cancelled 08/31/18 15:10 Microcytosis Cancelled 08/31/18 15:10 Macrocytosis Cancelled 08/31/18 15:10 Spherocytes Cancelled 08/31/18 15:10 Target Cells Cancelled 08/31/18 15:10 Tear Drop Cells Cancelled 08/31/18 15:10 Ovalocytes Cancelled 08/31/18 15:10 Stomatocytes Cancelled 08/31/18 15:10 [place] Bodies Cancelled 08/31/18 15:10 Denis Cells Cancelled 08/31/18 15:10 Acanthocytes (Spur) Cancelled 08/31/18 15:10 Schistocytes Cancelled 08/31/18 15:10 ESR 43 MM/HR (0-15) H 08/25/18 06:50 Sodium 138 mmol/L (136-145) 09/01/18 11:10 Potassium 4.1 mmol/L (3.5-5.1) 09/01/18 11:10 Chloride 101 mmol/L (98-107) 09/01/18 11:10 Carbon Dioxide 29.9 mmol/L (21.0-32.0) 09/01/18 11:10 Anion Gap 7.1 mmol/L (3-11) 09/01/18 11:10 BUN 18 mg/dL (7-18) 09/01/18 11:10 Creatinine 0.83 mg/dL (0.70-1.30) 09/01/18 11:10 Estimated GFR/1.73 m2 >= 60.00 (mL/min/1.73m2) 09/01/18 11:10 Glucose 94 mg/dL (70-100) 09/01/18 11:10 Calcium 8.6 mg/dL (8.5-10.1) 09/01/18 11:10 Total Bilirubin 0.5 mg/dL (0.2-1.0) 09/01/18 11:10 Conjugated Bilirubin 0.10 mg/dL (0.00-0.20) 09/01/18 11:10 AST 64 U/L (15-37) H 09/01/18 11:10 ALT 228 U/L (12-78) H 09/01/18 11:10 Alkaline Phosphatase 177 U/L (46-116) H 09/01/18 11:10 C-Reactive Protein 0.57 mg/dL (0.0-0.3) H 08/25/18 06:50 Total Protein 5.7 g/dL (6.4-8.2) L 09/01/18 11:10 Albumin 3.0 g/dL (3.4-5.0) L 09/01/18 11:10 Vancomycin Trough 17.7 ug/mL (10.0-20.0) 08/28/18 11:02
[2018-09-01] MEDS: Melatonin 3 MG TAB PO (22:45)
[2018-09-02] MEDS: diphenhydrAMINE 25 MG CAP 50 MG PO ×3 (04:07→18:33)
[2018-09-02] MEDS: Ibuprofen 600 MG TAB PO ×3 (04:07→18:33)
[2018-09-02 07:40] VITALS: BP 108/65; PULSE 70; RESP 16; TEMP 37.4; O2SAT 99
[2018-09-02] MEDS: predniSONE 20 MG TAB 40 MG PO (08:18)
[2018-09-02] MEDS: Normal Saline Flush 10 ML SYR IVP (08:18)
[2018-09-02] MEDS: Clotrimazole 1% 15 GM TUBE TP ×2 (08:19→19:21)
[2018-09-02] MEDS: Hydrocortisone 1% CR 30 GM TUBE TP ×2 (08:19→19:20)
[2018-09-02 11:18] LABS: ALT 229 U/L (12-78); AST 62 U/L (15-37); Albumin 3.3 g/dL (3.4-5.0); Alkaline Phosphatase 179 U/L (46-116); Anion Gap 8.5 mmol/L (3-11); BUN 19 mg/dL (7-18); Bilirubin, Direct 0.12 mg/dL (0.00-0.20); Bilirubin, Total 0.4 mg/dL (0.2-1.0); CO2 28.5 mmol/L (21.0-32.0); CREATININE 0.76 mg/dL (0.70-1.30); Calcium 8.9 mg/dL (8.5-10.1); Chloride 102 mmol/L (98-107); Glucose 76 mg/dL (70-100); Magnesium 2.4 mg/dL (1.8-2.4); Potassium 4.1 mmol/L (3.5-5.1); Sodium 139 mmol/L (136-145); Total Protein 6.3 g/dL (6.4-8.2)
[2018-09-02 11:54] LABS: Abs Immature Grans 0.17 k/cumm (0.0-0.09); Absolute Basophil Count 0.09 k/cumm (0.0-0.2); Absolute Eosinophil Count 1.75 k/cumm (0.0-0.7); Absolute Monocyte Count 1.42 k/cumm (0.11-0.7); Basophils % 0.8; Eosinophils % 15.3; HCT 36.5 % (40.0-50.0); HGB 12.5 g/dL (13.5-17.5); Immature Grans % 1.5; Lymphocytes % 7.1; Mean Corp. HGB Concentration 34.2 g/dL (32.0-36.0); Mean Corpuscular Hemoglobin 30.4 pg (27.0-33.0); Mean Corpuscular Volume 88.8 fL (80-95); Monocytes % 12.4; Neutrophils % 62.9; Platelet Count 276 x1000/uL (130-400); RBC 4.11 m/cumm (4.50-6.00); RBC Distribution Width 14.8 % (11.8-14.1); White Blood Cell Count 11.47 k/cumm (4.4-10.8)
[2018-09-02 11:55] LABS: Absolute Lymphocyte Count 0.81 k/cumm (1.2-3.4); Absolute Neutrophil Count 7.21 k/cumm (1.2-6.7)
[2018-09-02 12:02] LABS: Diff Comment Diff Reviewed; RBC Morphology Normal
[2018-09-02 16:23] VITALS: BP 128/81; PULSE 97; RESP 18; TEMP 36.3; O2SAT 100
[2018-09-02] MEDS: Varenicline 1 MG TAB 0.5 MG PO (20:44)
[2018-09-02] MEDS: Melatonin 3 MG TAB PO (21:57)
[2018-09-02 22:00] VITALS: BP 116/75; PULSE 88; RESP 18; TEMP 36.7; O2SAT 99
[2018-09-03] MEDS: diphenhydrAMINE 25 MG CAP 50 MG PO ×2 (04:14→10:47)
[2018-09-03 07:25] VITALS: BP 124/77; PULSE 98; RESP 17; TEMP 36.2; O2SAT 99
[2018-09-03] MEDS: Varenicline 1 MG TAB 0.5 MG PO (08:41)
[2018-09-03] MEDS: Ibuprofen 600 MG TAB PO (08:42)
[2018-09-03] MEDS: predniSONE 20 MG TAB 40 MG PO (08:43)
[2018-09-03] MEDS: Normal Saline Flush 10 ML SYR IVP (08:43)
[2018-09-03] MEDS: Clotrimazole 1% 15 GM TUBE TP (08:44)
[2018-09-03] MEDS: Hydrocortisone 1% CR 30 GM TUBE TP (08:44)
--- NOTE | 2018-09-03 13:35 | W.PM.DS.N ---
Date of service: 09/03/18 Time of Service: 13:35 DS: Diagnosis Discharge Diagnosis (1) DRESS syndrome: Status: Acute (2) Endocarditis: Status: Acute (3) Hepatitis C antibody test positive: Status: Acute Discharge Plan Discharge Details Reason For Visit: BACTEREMIA Admit Date/Time: 08/18/18 16:49 Admit Provider: Monae Chase Attending Provider: Monae Chase Primary Care Provider: Aileen Macias Hospital Course Hospital Course: CC: Fever HPI: 43-year-old man with a history of active IV drug abuse, recently admitted to an [facility] for bacteremia with suspected endocarditis, who presented back for an admission secondary to fevers. Mr. Paulino was first admitted on 07/18/18 to 07/20/18 with complaint of fevers, with a reported history of shaking chills and fevers at home for over a month. He had been seen prior to that visit in the emergency department and recommended admission for Microbacterium bacteremia and declined twice. Eventually he was admitted on 07/18/2018 after being referred from his primary care provider's office. He was admitted to [facility] at that time and empirically treated with IV vancomycin. He was eager for discharge at that time. Infectious disease at [facility] was consulted and recommended daptomycin once daily which he received after his discharge on 07/20/2018 until he was readmitted on 07/26/2018. He went on to use IV drugs after his discharge. He went back to his primary care provider office with continued fevers and shakes. At that time Dr. Chon Motta felt that this represented failure of the outpatient antibiotic regimen. He was then admitted again from his primary care provider office on 07/26/2018. There was concern for recurrent bacteremia at that time due to Daptomycin failure, and he was restarted on the IV vancomycin. He went on to have multiple negative blood cultures despite documented fevers, a TTE and a SUMMER which were both negative for endocarditis, and a CT of the chest, abdomen, and pelvis which did not show a source for infection. Again, he was eager for discharge and agreed to 6 weeks of IV vancomycin as an outpatient. However, due to work and availability for outpatient infusion, he went from TID to BID dosing of IV Vancomycin, and pharmacy reported some difficulty maintaining his trough levels. The patient presented to his primary care provider office again reporting fevers and shakes every night since he was discharged on August 07, 2018. He has been diaphoretic with these episodes he reports headaches, some nausea, no vomiting, no diarrhea. He did have mild chest discomfort earlier today without palpitations. No shortness of breath, cough, wheeze, he denies edema. He does admit to using IV drugs after his discharge on August 07 and August 08. He used a clean needle the first time. He did not use a clean needle on 08-24. He was again admitted to the [facility] floor for IV antibiotics for suspected endocarditis. Hospital Course: (1) Fever Original blood cultures were positive for microbacterium. However, despite previously perceieved treatment failures every blood culture since has yielded no growth (Original Blood Culture Positive for Vancomycin Sensitive Microbacterium Species on 07/13/2018 in both sets - negative blood cultures following this on 07/18, 07/26 (1 positive for GP Skip likely contaminant), 07/30, 08/15, 08/15, 08/27, 08/28, and 09/01). Outpatient management has been attempted twice with the patient presenting back to his primary care provider office reporting fevers resulting in direct admissions. He has continued to use IV drugs as an outpatient. Patient was resumed on IV vancomycin following his admission. However, he went on to develop a diffuse rash across the majority of his body - initially assumed to be red man syndrome, the patient also showed evidence of elevated Eosinophils on CBC, Lymphadenopathy, worsening LFTs from baseline (History of HCV), recurrence of fevers, and a headache. Repeat Blood Cultures were taken and again negative. A diagnosis of DRESS Syndrome was made, and Vancomycin was stopped, with patient being started on oral and topical prednisone. His LFTs improved and decreased back to his baseline. He has also remained afebrile since discontinuation of Vancomycin, and feels subjectively improved. Recommendations were made to change patient to another course of antibiotics for completion - however, Mr. Paulino is refusing and states that he no longer wants to take any antibiotics at all. He understands that there is a risk of recurrence of infection because he wouldn't have completed his course but he feels that antibiotics do not agree with his body. Recommendations are to follow-up with ID in a timely manner for coordination of care, along with his PCP over the next week. (2) DRESS syndrome: Drug Reaction with Eosinophia and Systemic Symptoms, as evidenced by a rash, eosinophilia, fevers, Lymphadenopathy, and elevated LFTs (Tender LN on Left AC Chain under chin). Therapy with Vancomycin was withdrawn, and patient was started on topical and systemic symptoms for his cutaneous symptoms. Fortunately his reaction did not appear to be significant, despite his rash, and his fevers abated and LFTs returned to their baseline elevation (History of HCV). Will continue but slowly wean oral prednisone, and monitor closely as an outpatient. No evidence of kidney or pulmonary involvement. Of note, patient has a history of Vitiligo. (3) HCV With history of IVDA - patient has mild transaminitis at baseline, mildly worsened in setting of likely DRESS Syndrome, now back to baseline. Repeat LFTs in a few days as an outpatient. This was a new diagnosis as of June of 2018. He does have a viral load greater than 540,000. He had a liver ultrasound during that hospitalization that showed Mild hepatosplenomegaly. No evidence of focal liver lesion. (4)IV drug abuse: Continued IV drug abuse. Recommend abstinence. Patient understands risks of resuming his IV Drug use. (5) Tobacco abuse: Continue Chantix as per patient's wishes. Home Meds and New Rx's Prescriptions: New prednisone 20 mg Tablet 10 mg PO DAILY Qty: 70 RF: 0 hydrocortisone 1 % Cream Topical BID 30 Days RF: 0 betamethasone dipropionate 0.05 % Cream Topical BID 30 Days RF: 0 varenicline [Chantix] 1 mg Tablet 0.5 mg PO BID Qty: 60 RF: 0 Continue ibuprofen [IBU] 600 mg Tablet 600 mg PO QID PRN PRN (Reason: pain) Qty: 60 RF: 0 Discontinued varenicline [Chantix] 1 mg Tablet 0.5 mg PO DAILY Qty: 56 RF: 0 Discharge Instructions Activity:: Activity as Tolerated Activity:: Activity as Tolerated Equipment/Supplies:: No Equipment Needed Diet:: As Tolerated DS: Data Vitals/I&O Vitals and I&O: Vital Signs Temperature 36.2 C L 09/03/18 07:25 Temperature Source Tympanic 09/03/18 07:25 Pulse 98 H 09/03/18 07:25 Pulse Rhythm Regular 09/03/18 08:40 Respiratory Rate 17 09/03/18 07:25 Respiratory Effort Non-Labored 09/03/18 08:40 Respiratory Depth Normal 09/03/18 08:40 Respiratory Pattern Normal 09/03/18 08:40 Blood Pressure 124/77 09/03/18 07:25 Pulse Oximetry 99 09/03/18 07:25 Oxygen Delivery Method Room Air 09/03/18 07:25 Oxygen Flow Rate 0 09/03/18 07:25 Pain Level 3 09/03/18 08:42 Comment 08/30/18 07:30 Intake & Output 09/02/18 09/03/18 09/03/18 23:59 11:59 23:59 Intake Total 1220 / 1220 130 / 130 300 / 300 Balance 1220 / 1220 130 / 130 300 / 300 Intake: IV Oral 1220 / 1220 120 / 120 300 / 300 Other: Comment Pt voids ind. Voiding Methods Toilet Labs on day of discharge: Preliminary micro results at discharge 09/01/18 11:10 Blood Culture - Preliminary Blood NO GROWTH 24 HOURS 09/01/18 11:25 Blood Culture - Preliminary Blood NO GROWTH 24 HOURS
--- NOTE | 2018-09-03 13:50 | DSE_ITS ---
Date of service: 09/03/18 Time of Service: 13:35 DS: Diagnosis Discharge Diagnosis (1) DRESS syndrome: Status: Acute (2) Endocarditis: Status: Acute (3) Hepatitis C antibody test positive: Status: Acute Discharge Plan Discharge Details Reason For Visit: BACTEREMIA Admit Date/Time: 08/18/18 16:49 Admit Provider: Monae Chase Attending Provider: Monae Chase Primary Care Provider: Aileen Macias Hospital Course Hospital Course: CC: Fever HPI: 43-year-old man with a history of active IV drug abuse, recently admitted to an [facility] for bacteremia with suspected endocarditis, who presented back for an admission secondary to fevers. Mr. Paulino was first admitted on 07/18/18 to 07/20 with complaint of fevers, with a reported history of shaking chills and fevers at home for over a month. He had been seen prior to that visit in the emergency department and recommended admission for Microbacterium bacteremia and declined twice. Eventually he was admitted on 07/18/2018 after being referred from his primary care provider's office. He was admitted to [facility] at that time and empirically treated with IV vancomycin. He was eager for discharge at that time. Infectious disease at [facility] was consulted and recommended daptomycin once daily which he received after his discharge on 2017 until he was readmitted on 07/26/2018. He went on to use IV drugs after his discharge. He went back to his primary care provider office with continued fevers and shakes. At that time Dr. Chon Motta felt that this represented failure of the outpatient antibiotic regimen. He was then admitted again from his primary care provider office on 07/26/2018. There was concern for recurrent bacteremia at that time due to Daptomycin failure, and he was restarted on the IV vancomycin. He went on to have multiple negative blood cultures despite documented fevers, a TTE and a SUMMER which were both negative for endocarditis, and a CT of the chest, abdomen, and pelvis which did not show a source for infection. Again, he was eager for discharge and agreed to 6 weeks of IV vancomycin as an outpatient. However, due to work and availability for outpatient infusion, he went from TID to BID dosing of IV Vancomycin, and pharmacy reported some difficulty maintaining his trough levels. The patient presented to his primary care provider office again reporting fevers and shakes every night since he was discharged on August 07, 2018. He has been diaphoretic with these episodes he reports headaches, some nausea, no vomiting, no diarrhea. He did have mild chest discomfort earlier today without palpitations. No shortness of breath, cough, wheeze, he denies edema. He does admit to using IV drugs after his discharge on August 07 and August 08. He used a clean needle the first time. He did not use a clean needle on 08-24. He was again admitted to the [facility] floor for IV antibiotics for suspected endocarditis. Hospital Course: (1) Fever Original blood cultures were positive for microbacterium. However, despite previously perceieved treatment failures every blood culture since has yielded no growth (Original Blood Culture Positive for Vancomycin Sensitive Microbacterium Species on 07/13/2018 in both sets - negative blood cultures following this on 07/18, 07/26 (1 positive for GP Skip likely contaminant), 07/30, 08/15, 08/15, 08/27, 08/28, and 09/01). Outpatient management has been attempted twice with the patient presenting back to his primary care provider office reporting fevers resulting in direct admissions. He has continued to use IV drugs as an outpatient. Patient was resumed on IV vancomycin following his admission. However, he went on to develop a diffuse rash across the majority of his body - initially assumed to be red man syndrome, the patient also showed evidence of elevated Eosinophils on CBC, Lymphadenopathy, worsening LFTs from baseline (History of HCV), recurrence of fevers, and a headache. Repeat Blood Cultures were taken and again negative. A diagnosis of DRESS Syndrome was made, and Vancomycin was stopped, with patient being started on oral and topical prednisone. His LFTs improved and decreased back to his baseline. He has also remained afebrile since discontinuation of Vancomycin, and feels subjectively improved. Recommendations were made to change patient to another course of antibiotics for completion - however, Mr. Paulino is refusing and states that he no longer wants to take any antibiotics at all. He understands that there is a risk of recurrence of infection because he wouldn't have completed his course but he feels that antibiotics do not agree with his body. Recommendations are to follow -up with ID in a timely manner for coordination of care, along with his PCP over the next week. (2) DRESS syndrome: Drug Reaction with Eosinophia and Systemic Symptoms, as evidenced by a rash, eosinophilia, fevers, Lymphadenopathy, and elevated LFTs (Tender LN on Left AC Chain under chin). Therapy with Vancomycin was withdrawn, and patient was started on topical and systemic symptoms for his cutaneous symptoms. Fortunately his reaction did not appear to be significant, despite his rash, and his fevers abated and LFTs returned to their baseline elevation (History of HCV). Will continue but slowly wean oral prednisone, and monitor closely as an outpatient. No evidence of kidney or pulmonary involvement. Of note, patient has a history of Vitiligo. (3) HCV With history of IVDA - patient has mild transaminitis at baseline, mildly worsened in setting of likely DRESS Syndrome, now back to baseline. Repeat LFTs in a few days as an outpatient. This was a new diagnosis as of June of 2018. He does have a viral load greater than 540,000. He had a liver ultrasound during that hospitalization that showed Mild hepatosplenomegaly. No evidence of focal liver lesion. (4)IV drug abuse: Continued IV drug abuse. Recommend abstinence. Patient understands risks of resuming his IV Drug use. (5) Tobacco abuse: Continue Chantix as per patient's wishes. Home Meds and New Rx's Prescriptions: New prednisone 20 mg Tablet 10 mg PO DAILY Qty: 70 RF: 0 hydrocortisone 1 % Cream Topical BID 30 Days RF: 0 betamethasone dipropionate 0.05 % Cream Topical BID 30 Days RF: 0 varenicline [Chantix] 1 mg Tablet 0.5 mg PO BID Qty: 60 RF: 0 Continue ibuprofen [IBU] 600 mg Tablet 600 mg PO QID PRN PRN (Reason: pain) Qty: 60 RF: 0 Discontinued varenicline [Chantix] 1 mg Tablet 0.5 mg PO DAILY Qty: 56 RF: 0 Discharge Instructions Activity:: Activity as Tolerated Activity:: Activity as Tolerated Equipment/Supplies:: No Equipment Needed Diet:: As Tolerated DS: Data Vitals/I&O Vitals and I&O: Vital Signs Temperature 36.2 C L 09/03/18 07:25 Temperature Source Tympanic 09/03/18 07:25 Pulse 98 H 09/03/18 07:25 Pulse Rhythm Regular 09/03/18 08:40 Respiratory Rate 17 09/03/18 07:25 Respiratory Effort Non-Labored 09/03/18 08:40 Respiratory Depth Normal 09/03/18 08:40 Respiratory Pattern Normal 09/03/18 08:40 Blood Pressure 124/77 09/03/18 07:25 Pulse Oximetry 99 09/03/18 07:25 Oxygen Delivery Method Room Air 09/03/18 07:25 Oxygen Flow Rate 0 09/03/18 07:25 Pain Level 3 09/03/18 08:42 Comment 08/30/18 07:30 Intake & Output 09/02/18 09/03/18 09/03/18 23:59 11:59 23:59 Intake Total 1220 / 1220 130 / 130 300 / 300 Balance 1220 / 1220 130 / 130 300 / 300 Intake: IV Oral 1220 / 1220 120 / 120 300 / 300 Other: Comment Pt voids ind. Voiding Methods Toilet Labs on day of discharge: Preliminary micro results at discharge 09/01/18 11:10 Blood Culture - Preliminary Blood NO GROWTH 24 HOURS 09/01/18 11:25 Blood Culture - Preliminary Blood NO GROWTH 24 HOURS
--- NOTE | 2018-09-03 14:35 | CMDISCH_ITS ---
- If Service Date Differs Date of service: 09/03/18 Time of Service: 14:32 LACE Index Scoring Tool - Questions: Length of Stay (in days): 14 or more Acuity (Admit via E.D.?): No E.D. Visits: 6 - Answers: Total Score: 11 Risk of Readmission: High Risk Care Management Discharge Reason for Hospitalization: Bacteremia Discharge Plan: Kevin will return home today with no services. He will F/U with PCP and ID in the next week. Kevin has a friend that will transport him home today. He is concerned about what to do for money, as well as disability, Kevin has [facility] RN CM in place, and [facility] resource has been provided to him on multiple admissions. Patient/Family Education Needs: Review DC instructions, any limitations, and ' Ask me Three
== END 2018-09-03 15:05 | disposition home or self-care (01) | DRG 290 ==
PROVIDERS: Internal Medicine; Admitting Provider Internal Medicine; PCP Nurse Practitioner; Visit Provider Internal Medicine
DX: I33.9 Acute and subacute endocarditis, unspecified (principal); D72.1 Eosinophilia; L04.0 Acute lymphadenitis of face, head and neck; R94.5 Abnormal results of liver function studies; L27.0 Generalized skin eruption due to drugs and medicaments taken internally; R50.9 Fever, unspecified; T88.7XXA Unspecified adverse effect of drug or medicament, initial encounter; B19.20 Unspecified viral hepatitis C without hepatic coma; F19.10 Other psychoactive substance abuse, uncomplicated; F17.210 Nicotine dependence, cigarettes, uncomplicated; G47.00 Insomnia, unspecified
CPT/HCPCS: 36410; 36415; 36569; 80048; 80053; 80076; 85652; 87040; 90744; 99222; 99239; 99308; 99309; 99316; NC; 80202; 82565; 83735; 85025; 85049; 86140; 87070; 99232; J2020; J7512

== ENCOUNTER 2018-09-19 09:36 | Outpatient (CLI) | payer MEDICAID, SELFPAY ==
[2018-09-19 10:04] LABS: Abs Immature Grans 0.29 k/cumm (0.0-0.09); HCT 42.4 % (40.0-50.0); HGB 14.3 g/dL (13.5-17.5); Mean Corp. HGB Concentration 33.7 g/dL (32.0-36.0); Mean Corpuscular Hemoglobin 31.2 pg (27.0-33.0); Mean Corpuscular Volume 92.4 fL (80-95); Mean Platelet Volume 9.1 fL (8.0-11.0); Platelet Count 260 x1000/uL (130-400); RBC 4.59 m/cumm (4.50-6.00); RBC Distribution Width 15.7 % (11.8-14.1); White Blood Cell Count 11.06 k/cumm (4.4-10.8)
[2018-09-19 10:32] LABS: Absolute Basophil Count 0.11 k/cumm (0.0-0.2); Absolute Eosinophil Count 0.44 k/cumm (0.0-0.7); Absolute Lymphocyte Count 2.99 k/cumm (1.2-3.4); Absolute Monocyte Count 0.88 k/cumm (0.11-0.7); Atypical Lymphocytes % 2
[2018-09-19 10:33] LABS: Anisocytosis 1+; Diff Comment Manual Differential
[2018-09-19 10:49] LABS: ALT 72 U/L (12-78); AST 32 U/L (15-37); Albumin 3.7 g/dL (3.4-5.0); Alkaline Phosphatase 113 U/L (46-116); BUN 17 mg/dL (7-18); Bilirubin, Total 0.4 mg/dL (0.2-1.0); CREATININE 0.85 mg/dL (0.70-1.30); Calcium 9.2 mg/dL (8.5-10.1); Chloride 102 mmol/L (98-107); Glucose 123 mg/dL (70-100); Potassium 3.4 mmol/L (3.5-5.1); Sodium 140 mmol/L (136-145); Total Protein 6.9 g/dL (6.4-8.2)
== END 2018-09-19 09:56 ==
PROVIDERS: PCP Nurse Practitioner; Visit Provider Family Medicine
DX: B19.20 Unspecified viral hepatitis C without hepatic coma (principal)
CPT/HCPCS: 36415; 80053; 86803; 85025; 87522

== ENCOUNTER 2018-11-24 13:38 | Outpatient (CLI) | payer SELFPAY | END 2018-11-24 13:58 | PROVIDERS: PCP Nurse Practitioner; Visit Provider Family Medicine | DX: R78.81 Bacteremia (principal); B19.20 Unspecified viral hepatitis C without hepatic coma | CPT/HCPCS: 36415; 86803; 86140; 87522 ==

== ENCOUNTER 2019-01-20 10:21 | Outpatient (CLI) | payer MEDICAID, SELFPAY ==
[2019-01-22 09:01] LABS: Hepatitis B Surface Ag Negative (NEGAT)
[2019-01-22 09:19] LABS: HBs Antibody, Quant <3.1 mIU/mL; Hepatitis B Surface Ab Negative
[2019-01-22 09:31] LABS: HIV-1/2 Ag & Ab Screen Negative (NEGAT)
[2019-01-22 11:06] LABS: Hep A Total Ab w Rflx IgM Negative (NEGAT); Hep B Core Antibody Negative (NEGAT)
== END 2019-01-20 10:41 ==
PROVIDERS: PCP Nurse Practitioner; Visit Provider Family Medicine
DX: B19.20 Unspecified viral hepatitis C without hepatic coma (principal); Z11.4 Encounter for screening for human immunodeficiency virus [HIV]
CPT/HCPCS: 36415; 86704; 86706; 86709; 87340; 87389

== ENCOUNTER 2019-01-22 14:56 | Outpatient (REF) | payer MEDICAID, SELFPAY ==
--- NOTE | 2019-01-22 14:00 | SKI_PTH ---
PATIENT: Kevin Paulino LOC: [facility] U#:[id number] AGE/SX: 43/M ROOM: RE01/22/[address]: Chon Motta : 1975 BED: DIS: 01/22/2019 SPEC #: [id number] RECD: 01/23/19 12:19 STATUS: RENATA MAYORGA #: [id number] TAYLOR: 01/22/19 14:[address]: Chon Motta DEPT: Surgical Specimen RECD BY: Abi Hill ENTERED: 01/23/19 12:21 SP TYPE: SKI OTHR DR: Aileen Macias Tissues: 1 - SKIN BIOPSY(SHAVE/PUNCH) Procedures: SKIN LEVEL 4 Comments: [id number]
== END 2019-01-22 15:16 ==
LOC: NCHCN 14:56
PROVIDERS: PCP Nurse Practitioner; Visit Provider Family Medicine
DX: L57.0 Actinic keratosis (principal)
CPT/HCPCS: 88305

== ENCOUNTER 2019-02-16 08:49 | Outpatient (REF) | payer MEDICAID, SELFPAY ==
[2019-02-16 13:18] LABS: HCT 44.4 % (40.0-50.0); HGB 15.5 g/dL (13.5-17.5); Mean Corp. HGB Concentration 34.9 g/dL (32.0-36.0); Mean Corpuscular Volume 85.9 fL (80-95); Mean Platelet Volume 10.5 fL (8.0-11.0); Platelet Count 287 x1000/uL (130-400); RBC 5.17 m/cumm (4.50-6.00); RBC Distribution Width 13.9 % (11.8-14.1); White Blood Cell Count 6.92 k/cumm (4.4-10.8)
[2019-02-16 13:27] LABS: ALT 32 U/L (12-78); AST 22 U/L (15-37); Albumin 4.3 g/dL (3.4-5.0); Alkaline Phosphatase 119 U/L (46-116); Anion Gap 12.6 mmol/L (3-11); BUN 13 mg/dL (7-18); Bilirubin, Total 1.1 mg/dL (0.2-1.0); CO2 25.4 mmol/L (21.0-32.0); CREATININE 0.83 mg/dL (0.70-1.30); Calcium 9.3 mg/dL (8.5-10.1); Chloride 104 mmol/L (98-107); Glucose 109 mg/dL (70-100); Potassium 3.7 mmol/L (3.5-5.1); Sodium 142 mmol/L (136-145); Total Protein 7.7 g/dL (6.4-8.2)
[2019-02-20 07:13] LABS: HCV RNA Detection Quantitative Undetected IU/mL (UNDECT)
== END 2019-02-16 09:09 ==
LOC: NCHCN 08:49
PROVIDERS: PCP Nurse Practitioner; Visit Provider Family Medicine
DX: B19.20 Unspecified viral hepatitis C without hepatic coma (principal)
CPT/HCPCS: 80053; 85027; 87522

== ENCOUNTER 2019-03-18 14:02 | Emergency (ER) | payer MEDICAID, SELFPAY ==
[2019-03-18] VITALS (39 sets, daily range): BP systolic 98–122; BP diastolic 53–81; PULSE 90–115; RESP 11–31; TEMP 37.2–40; O2SAT 94–99
[2019-03-18] MEDS: Lactated Ringers 1,000 ML 1000 ML IV (14:05)
--- NOTE | 2019-03-18 14:26 | DI.RAD_ITS ---
SYMPTOMS/DIAGNOSIS: PNEUMONIA AP AND LATERAL CHEST: Comparison is made with [id number]. The cardiac and mediastinal contours have a normal appearance. No infiltrate, effusion or pulmonary edema is seen. A thoracic kyphosis is again noted. There is no evidence of pneumothorax. IMPRESSION: No acute abnormality.
--- NOTE | 2019-03-18 14:33 | W.ED.GENAD ---
Discharge Plan Discharge Details Chief Complaint: GenMedical Primary Care Provider: Aileen Macias ED Provider: Wilian Hart Home Meds and New Rx's Prescriptions: No Action ibuprofen [IBU] 600 mg Tablet 600 mg PO QID PRN PRN (Reason: pain) Qty: 60 RF: 0 Mavyret 100-40 mg Tablet 1 tab PO DAILY RF: 0 Discharge Data Discharge Date/Time-TO BE ENTERED AT DEPARTURE: 03/18/19 20:15 Medical Decision Making 43-year-old male past medical history of IVDU hepatitis C presents with fever jaundice heart murmur concern for endocarditis versus cholangitis versus cholecystitis versus other. Less likely spinal epidural abscess or encephalitis due to lack of spinal pain or altered mental status. patient's lab abnormalities significant for lactate of 2.2 grossly deranged liver profile with AST ALT approximately 4000 bilirubin of 6. Patient treated with IV fluids 3 L in the emergency department antibiotic choice of daptomycin and cefepime due to patient's extensive allergies and considerable reticence to take antibiotics. patient developed dress syndrome which was diagnosed in response to vancomycin on previous admission. Pt treated with cephalosporins and daptomycin without incident but questionable efficacy in past patient also given zyvox but then stopped for unclear reasons and patient believes he had a reaction to that medication as well. CT abdomen pelvis shows nonspecific biliary duct dilation gallbladder enlargement frankie-cholestatic fluid some similarities between previous scans though more advanced and concerning for cholangitis. Case reviewed with internal medicine and general surgery at [facility] recommend GI consult and possible transfer to [facility] for higher level of care. Case discussed with [facility] GI agree patient requires ICU level of care possible IR or GI interventions including ERCP possible biliary drainage and possible infectious disease consultation. We will transfer the patient to [facility]. Patient aware of risks and benefits of transfer risks including unforeseen clinical deterioration motor vehicle accident benefits including specialty consultation unavailable here at [facility]. Patient consents to transfer. ECG Data Attestation: I personally reviewed and interpreted this ECG (s) as follows: (Sinus rhythm 108 with frequent unifocal PVCs left axis deviation mildly prolonged QTC right bundle branch block no STEMI) HPI 43-year-old male past medical history of IVDU bacteremia dress syndrome in response to vancomycin, poor compliance last admission for bacteremia back in August 2018 with complicated course followed by patient signing out AGAINST MEDICAL ADVICE. Patient returns with 2 to 3 days of Rigors, chills and fever up to 103 cough congestion and malaise. Patient admits to sporadic IVDU.symptoms are acute nonradiating nothing makes them better or worse at this time. Patient's asked reports new onset jaundice. No chest pain shortness of breath loss of consciousness positive fever chills.no nausea vomiting diarrhea no abdominal pain no back pain neck pain positive generalized aches. General Date/Time Provider Initiated Documentation: 03/18/19 14:04. Related Data Home Medications Medication Instructions Recorded Confirmed ibuprofen [IBU] 600 mg PO QID PRN PRN #60 tab 08/07/18 03/18/19 glecaprevir-pibrentasvir [Mavyret] 1 tab PO DAILY 03/18/19 03/18/19 Previous Rx's Medication Instructions Recorded ibuprofen [IBU] 600 mg PO QID PRN PRN #60 tab 08/07/18 Allergies Allergy/AdvReac Type Severity Reaction Status Date / Time gabapentin Allergy Intermediate Itching, Unverified 03/18/19 15:42 jumpy vancomycin AdvReac Severe DRESS Verified 03/18/19 15:42 SYNDROME General CY: 2 Review of Systems Review of Systems All systems reviewed & are unremarkable except as noted in HPI and below PFSH Medical History Vitiligo (Acute) DVT prophylaxis (Acute) Discharge planning issues (Acute) Tobacco abuse (Acute) Hepatitis C antibody test positive (Acute) IV drug abuse (Acute) Bacteremia (Acute) Social History Smoking/Tobacco Use Status: Current-Occasional Tobacco Type: cigarettes Alcohol Intake: never Drug use: Occasionally Substance use type: crack/cocaine and other Details: Current IVDA. Do you feel safe at home: Yes Do you feel safe in your relationship?: Yes Exam Narrative Exam Narrative: Pulse oximetry reviewed by me and is normal [] Constitutional: Pt is in no acute distress. he is well appearing. he oriented to person, place, and time. Eyes: conjunctivae are normal. Pupils are equal, round, and reactive to light. No scleral icterus. extraocular muscles are intact Ears/Nose/Mouth/Throat: mucus membranes are moist. Musculoskeletal: neck is supple. normal range of motion in all extremities. Cardiovascular: Normal rate and rhythm. No lower extremity edema positive systolic murmur [] Respiratory: effort is normal . pt exhibits no stridor or respiratory distress. Rhonchi bilaterally [] GastrointestinaI: abdomen soft, +BS, nontender, -rebound, -guarding. Repeat exam mild right upper quadrant tenderness to palp equivocal Meza's Neurological: alert and oriented to person, place, and time. he has normal strength, no tremor. Skin: Skin is warm and dry. he is not diaphoretic. Distal perfusion in tact, warm extremities, cap refill ? 2 seconds. Positive jaundice Hem/Lymph/Imm: No cervical LAD, no goiter, no conjunctival pallor Psych: normal mood and affect. behavior is normal Triage and nurse notes reviewed.[] Course Lab/Test Results Lab/Test Results: 03/18/19 14:27 Blood Blood Culture - Pending 03/18/19 14:27 Blood Blood Culture - Pending Critical Care Time Total Critical Care Time: 45 Attestation: I have spent 45 minutes providing critical care to this critically ill and unstable patient including multiple IV fluid boluses broad-spectrum antibiotics numerous expert consultations and emergent transfer to tertiary care facility.
--- NOTE | 2019-03-18 14:43 | ED.GENADUL_ITS ---
Discharge Plan Discharge Details Chief Complaint: GenMedical Primary Care Provider: Aileen Macias ED Provider: Wilian Hart Home Meds and New Rx's Prescriptions: No Action ibuprofen [IBU] 600 mg Tablet 600 mg PO QID PRN PRN (Reason: pain) Qty: 60 RF: 0 Mavyret 100-40 mg Tablet 1 tab PO DAILY RF: 0 Discharge Data Discharge Date/Time-TO BE ENTERED AT DEPARTURE: 03/18/19 20:15 Medical Decision Making 43-year-old male past medical history of IVDU hepatitis C presents with fever jaundice heart murmur concern for endocarditis versus cholangitis versus ch olecystitis versus other. Less likely spinal epidural abscess or encephalitis due to lack of spinal pain or altered mental status. patient's lab abnormalities significant for lactate of 2.2 grossly deranged liver profile with AST ALT approximately 4000 bilirubin of 6. Patient treated with IV fluids 3 L in the emergency department antibiotic choice of daptomycin and cefepime due to patient's extensive allergies and considerable reticence to take antibiotics. patient developed dress syndrome which was diagnosed in response to vancomycin on previous admission. Pt treated with cephalosporins and daptomycin without incident but questionable efficacy in past patient also given zyvox but then stopped for unclear reasons and patient believes he had a reaction to that medication as well. CT abdomen pelvis shows nonspecific biliary duct dilation gallbladder enlargement frankie-cholestatic fluid some similarities between previous scans though more advanced and concerning for cholangitis. Case re viewed with internal medicine and general surgery at [facility] recommend GI consult and possible transfer [place] [facility] [place] level [place]. Case discussed with [facility] agree patient requires ICU level of care possible IR or GI interventions including ERCP possible biliary drainage and possible infectious disease consultation. We will transfer the patient to [facility] Patient aware of risks and benefits of transfer risks including unforeseen clinical deterioration motor vehicle accident benefits including specialty consultation unavailable here at [facility]. Patient consents to transfer. ECG Data Attestation: I personally reviewed and interpreted this ECG (s) as follows: (Sinus rhythm 108 with frequent unifocal PVCs left axis deviation mildly prolonged QTC right bundle branch block no STEMI) HPI 43-year-old male past medical history of IVDU bacteremia dress syndrome in response to vancomycin, poor compliance last admission for bacteremia back in August 2018 with complicated course followed by patient signing out AGAINST MEDICAL ADVICE. Patient returns with 2 to 3 days of Rigors, chills and fever up to 103 cough congestion and malaise. Patient admits to sporadic IVDU.symptoms are acute nonradiating nothing makes them better or worse at this time. Patient's asked reports new onset jaundice. No chest pain shortness of breath loss of consciousness positive fever chills.no nausea vomiting diarrhea no abdominal pain no back pain neck pain positive generalized aches. General Date/Time Provider Initiated Documentation: 03/18/19 14:04 . Related Data Home Medications Medication Instructions Recorded Confirmed ibuprofen [IBU] 600 mg PO QID PRN PRN #60 tab 08/07/18 03/18/19 glecaprevir-pibrentasvir [Mavyret] 1 tab PO DAILY 03/18/19 03/18/19 Previous Rx's Medication Instructions Recorded ibuprofen [IBU] 600 mg PO QID PRN PRN #60 tab 08/07/18 Allergies Allergy/AdvReac Type Severity Reaction Status Date / Time gabapentin Allergy Intermediate Itching, Unverified 03/18/19 15:42 jumpy vancomycin AdvReac Severe DRESS Verified 03/18/19 15:42 SYNDROME General CY: 2 Review of Systems Review of Systems All systems reviewed & are unremarkable except as noted in HPI and below PFSH Medical History Vitiligo (Acute) DVT prophylaxis (Acute) Discharge planning issues (Acute) Tobacco abuse (Acute) Hepatitis C antibody test positive (Acute) IV drug abuse (Acute) Bacteremia (Acute) Social History Smoking/Tobacco Use Status: Current-Occasional Tobacco Type: cigarettes Alcohol Intake: never Drug use: Occasionally Substance use type: crack/cocaine and other Details: Current IVDA. Do you feel safe at home: Yes Do you feel safe in your relationship?: Yes Exam Narrative Exam Narrative: Pulse oximetry reviewed by me and is normal [] Constitutional: Pt is in no acute distress. he is well appearing. he oriented to person, place, and time. Eyes: conjunctivae are normal. Pupils are equal, round, and reactive to light. No scleral icterus. extraocular muscles are intact Ears/Nose/Mouth/Throat: mucus membranes are moist. Musculoskeletal: neck is supple. normal range of motion in all extremities. Cardiovascular: Normal rate and rhythm. No lower extremity edema positive systolic murmur [] Respiratory: effort is normal . pt exhibits no stridor or respiratory distress. Rhonchi bilaterally [] GastrointestinaI: abdomen soft, +BS, nontender, -rebound, -guarding. Repeat exam mild right upper quadrant tenderness to palp equivocal Meza's Neurological: alert and oriented to person, place, and time. he has normal strength, no tremor. Skin: Skin is warm and dry. he is not diaphoretic. Distal perfusion in tact, warm extremities, cap refill ? 2 seconds. Positive jaundice Hem/Lymph/Imm: No cervical LAD, no goiter, no conjunctival pallor Psych: normal mood and affect. behavior is normal Triage and nurse notes reviewed.[] Course Lab/Test Results Lab/Test Results: 03/18/19 14:27 Blood Blood Culture - Pending 03/18/19 14:27 Blood Blood Culture - Pending Critical Care Time Total Critical Care Time: 45 Attestation: I have spent 45 minutes providing critical care to this critically ill and unstable patient including multiple IV fluid boluses broad-spectrum antibiotics numerous expert consultations and emergent transfer to tertiary care facility.
[2019-03-18 14:52] LABS: Lactate 2.2 mmol/L (0.6-1.4)
[2019-03-18 14:53] LABS: Abs Immature Grans 0.02 k/cumm (0.0-0.09); Absolute Basophil Count 0.03 k/cumm (0.0-0.2); Absolute Eosinophil Count 0.05 k/cumm (0.0-0.7); Absolute Lymphocyte Count 0.77 k/cumm (1.2-3.4); Absolute Monocyte Count 0.45 k/cumm (0.11-0.7); Absolute Neutrophil Count 3.96 k/cumm (1.2-6.7); Basophils % 0.6; Eosinophils % 0.9; HCT 43.6 % (40.0-50.0); HGB 15.9 g/dL (13.5-17.5); Immature Grans % 0.4; Lymphocytes % 14.6; Mean Corp. HGB Concentration 36.5 g/dL (32.0-36.0); Mean Corpuscular Hemoglobin 30.7 pg (27.0-33.0); Mean Corpuscular Volume 84.2 fL (80-95); Mean Platelet Volume 10.8 fL (8.0-11.0); Monocytes % 8.5; Platelet Count 181 x1000/uL (130-400); RBC 5.18 m/cumm (4.50-6.00); RBC Distribution Width 14.2 % (11.8-14.1); White Blood Cell Count 5.28 k/cumm (4.4-10.8)
[2019-03-18 15:05] LABS: Albumin 3.5 g/dL (3.4-5.0); Alkaline Phosphatase 324 U/L (46-116); Anion Gap 11.1 mmol/L (3-11); BUN 15 mg/dL (7-18); Bilirubin, Total 5.9 mg/dL (0.2-1.0); C-Reactive Protein 7.22 mg/dL (0.0-0.3); CO2 26.9 mmol/L (21.0-32.0); CREATININE 0.95 mg/dL (0.70-1.30); Chloride 97 mmol/L (98-107); Glucose 129 mg/dL (70-100); Potassium 3.2 mmol/L (3.5-5.1); Sodium 135 mmol/L (136-145); Total Protein 7.3 g/dL (6.4-8.2)
[2019-03-18] MEDS: Acetaminophen 325 MG TAB 650 MG PO (15:05)
[2019-03-18] MEDS: Normal Saline 1,000 ML 1000 ML IV (15:06)
[2019-03-18] MEDS: Normal Saline Flush 10 ML SYR IVP ×2 (15:06→17:52)
[2019-03-18 15:16] LABS: Procalcitonin 0.6 ng/mL
[2019-03-18] MEDS: CEFEPIME 2 GM in Normal Saline 100 ML IVPB (15:20)
[2019-03-18 15:27] LABS: ALT 5028 U/L (12-78); AST 3475 U/L (15-37)
[2019-03-18 15:30] LABS: ESR 34 MM/HR (0-15)
--- NOTE | 2019-03-18 16:27 | DI.VRAD_ITS ---
EXAM: XR Chest, 2 Views EXAM DATE/TIME: 03/18/2019 2:33 PM CLINICAL HISTORY: 43 years old, male; Signs and symptoms; Other: Pna TECHNIQUE: Imaging protocol: XR of the chest, 2 views. COMPARISON: CR XR CHEST 2V PA LATERAL 07/18/2018 5:50 PM FINDINGS: Lungs: Interstitial markings in the chest appear increased when compared to prior exam. This could be related to technical factors but should be correlated with concern for edema or atypical infection. No dense focal consolidation seen. Pleural space: Unremarkable. No pleural effusion. No pneumothorax. Heart/Mediastinum: The cardiomediastinal contours appear unchanged. Bones/joints: There are skeletal degenerative changes. IMPRESSION: 1. Interstitial markings in the chest appear increased when compared to prior exam. This could be related to technical factors but should be correlated with concern for edema or atypical infection. No dense focal consolidation seen. 2. other findings as above. Dictated and Authenticated by: Blossom Valero MD. Ordering:BENJIE Cedeno MD
[2019-03-18 16:28] LABS: Bilirubin Large (Negative); Blood Negative (Negative); Clarity Clear; Glucose 100 mg/dL (Negative); Ketones Negative (Negative); Leukocyte Esterase Negative (Negative); Nitrite Negative (Negative); Urobilinogen >=8.0 EU/dL (Up TO 0.2)
[2019-03-18 16:38] LABS: Bacteria Negative HPF (Negative); Epithelial Cells Rare HPF (Negative); RBC Negative (0-2); WBC 0-2 HPF (0-5)
[2019-03-18 16:39] LABS: C & S Indicated? No; Crystals Few Amorphous HPF (Negative); Mucus Negative (Negative)
[2019-03-18] MEDS: DAPTOmycin 500 MG in Normal Saline 50 ML 100 MG IVPB (17:11)
[2019-03-18] MEDS: Omnipaque 350 MG/ML 100 ML BTL IJ (17:50)
--- NOTE | 2019-03-18 17:52 | DI.CT_ITS ---
SYMPTOM/DIAGNOSIS: FEVER, ABNL LFT'S, JAUNDICE ABDOMEN AND PELVIC CT: Comparison is made with 08/02/18. A post IV contrast exam was performed. There is minimal atelectasis or scarring at the lung bases. There is mild periportal edema which appears unchanged from the previous exam. Fluid is again noted around the gallbladder which appears more prominent when compared with the previous study. No gallbladder wall thickening or biliary dilatation is seen. The findings could be secondary to cardiac related congestion or hepatitis. The heart does not appear enlarged. There is no evidence of portal vein or hepatic vein occlusion. The bowel is difficult to evaluate due to lack of IV contrast and lack of intra-abdominal fat. There is no evidence of obstruction. The prostate and bladder are unremarkable. The spleen appears normal in size and unchanged. The adrenals, pancreas and kidneys are unremarkable. There are no suspicious bony abnormalities. IMPRESSION: Periportal edema and fluid around the gallbladder, slightly more prominent when compared with the previous exam. There is no evidence of abscess. The findings could be secondary to hepatitis or passive venous congestion although the liver attenuation appears normal.
--- NOTE | 2019-03-18 18:23 | DI.VRAD_ITS ---
EXAM: CT Abdomen and Pelvis With Contrast EXAM DATE/TIME: 03/18/2019 5:32 PM CLINICAL HISTORY: 43 years old, male; Signs and symptoms and abnormal findings; Abnormal lab test; Elevated liver enzymes; Patient HX: Fever, abn, lfts, jaundice TECHNIQUE: Imaging protocol: Axial computed tomography images of the abdomen and pelvis with intravenous contrast. Coronal and sagittal reformatted images were created and reviewed. Radiation optimization: All CT scans at this facility use at least one of these dose optimization techniques: automated exposure control; mA and/or kV adjustment per patient size (includes targeted exams where dose is matched to clinical indication); or iterative reconstruction. Contrast material: OMNI 350; Contrast volume: 100 ml; Contrast route: IV; COMPARISON: CT Abdomen^CAP WITH (Adult) 08/02/2018 10:44 AM FINDINGS: Lungs: Atelectasis or scarring at the lung bases. ABDOMEN: Liver: There is new periportal edema. Superimposed intrahepatic ductal dilation cannot be excluded. Gallbladder and bile ducts: There is a prominent gallbladder with pericholecystic fluid. Pancreas: Normal. No ductal dilation. Spleen: Normal. No splenomegaly. Adrenals: Normal. No mass. Kidneys and ureters: Normal. No hydronephrosis. Stomach and bowel: No evidence of bowel obstruction. There are several fluid filled loops of normal caliber small bowel, some of which demonstrate wall prominence. This can be seen with liver disease or enteritis in the appropriate clinical setting Appendix: No evidence of appendicitis. PELVIS: Bladder: The urinary bladder is contracted with wall prominence. Reproductive: Unremarkable as visualized. ABDOMEN and PELVIS: Intraperitoneal space: Normal. No free air. No significant fluid collection. Bones/joints: No acute fracture. No dislocation. Skeletal degenerative changes. Soft tissues: Unremarkable. Vasculature: Vascular calcifications. Lymph nodes: There are prominent/enlarged enlarged perihepatic lymph nodes measuring up to 1.1 cm in short axis (series 6 image 29). An enlarged portacaval lymph node measures 1.5 cm on short axis (series 4 image 24). IMPRESSION: 1. New periportal edema. This can be seen with acute hepatitis, cardiac congestion, cholangitis, or pyelonephritis. Superimposed intrahepatic ductal dilation cannot be excluded. 2. Gallbladder prominence with pericholecystic fluid. This may be related to the patient's liver abnormalities or acute cholecystitis. Ultrasound would be beneficial. 3. Several fluid filled loops of normal caliber small bowel, some of which demonstrate wall prominence. This can be seen with liver disease or enteritis (infectious, inflammatory, or ischemic). Correlation suggested. 4. Urinary bladder wall prominence. This can be seen with infection or under distention. 5. Prominent/enlarged lymph nodes in the upper abdomen. Other findings as above. Dictated and Authenticated by: Blossom Valero MD. Ordering:BENJIE Cedeno MD
== END 2019-03-18 20:15 ==
LOC: ER 14:09
PROVIDERS: Emergency Provider Emergency Medicine; PCP Nurse Practitioner
DX: K83.8 Other specified diseases of biliary tract (principal); I45.10 Unspecified right bundle-branch block
CPT/HCPCS: 36415; 80053; 84145; 85652; 87040; 93005; 96361; 96365; 96367; 99285; 71046; 74177; 81003; 81015; 83605; 85025; 86140; 93010; J0878; J3490

== ENCOUNTER 2019-12-26 13:59 | Outpatient (CLI) | payer MEDICAID, SELFPAY ==
[2019-12-26 15:33] LABS: ALT 24 U/L (16-63); AST 17 U/L (15-37); Albumin 4.5 g/dL (3.4-5.0); Alkaline Phosphatase 104 U/L (46-116); Anion Gap 12.6 mmol/L (3-11); BUN 10 mg/dL (7-18); Bilirubin, Total 0.5 mg/dL (0.2-1.0); CO2 26.4 mmol/L (21.0-32.0); CREATININE 0.88 mg/dL (0.70-1.30); Calcium 9.3 mg/dL (8.5-10.1); Chloride 103 mmol/L (98-107); Glucose 103 mg/dL (74-106); Potassium 4.1 mmol/L (3.5-5.1); Sodium 142 mmol/L (136-145); Total Protein 7.7 g/dL (6.4-8.2)
[2019-12-27 12:05] LABS: HBs Antibody, Quant 38.7 mIU/mL (See Note); Hepatitis B Surface Ab Positive (See Note)
[2019-12-27 12:15] LABS: Hep B Core Antibody Positive (Negative)
[2019-12-27 13:33] LABS: Hepatitis B Surface Ag Negative (Negative)
[2019-12-27 13:57] LABS: HCV RNA Detection Quantitative 0 IU/mL (Undetected)
[2019-12-28 17:34] LABS: HBV DNA Detect/Quant, PCR Undetected IU/mL (Undetected)
== END 2019-12-26 14:19 ==
PROVIDERS: PCP Family Medicine; Visit Provider Family Medicine
DX: B19.20 Unspecified viral hepatitis C without hepatic coma (principal); B19.10 Unspecified viral hepatitis B without hepatic coma
CPT/HCPCS: 36415; 80053; 86704; 86706; 87340; 87517; 87522

== ENCOUNTER 2020-01-30 12:11 | Outpatient (REF) | payer MEDICAID, SELFPAY ==
--- NOTE | 2020-01-30 11:45 | SKI_PTH ---
PATIENT: Kevin Paulino LOC: [facility] U#:[id number] AGE/SX: 44/M ROOM: RE01/30/[address]: Chon Motta : 1975 BED: DIS: 01/30/2020 SPEC #: [id number] RECD: 01/31/20 12:26 STATUS: RENATA MAYORGA #: [id number] TAYLOR: 01/30/20 11:[address]: Chon Motta DEPT: Surgical Specimen RECD BY: Abi Hill Tissues: 1 - SKIN BIOPSY(SHAVE/PUNCH) Procedures: SKIN LEVEL 4 Comments: [id number]
== END 2020-01-30 12:31 ==
LOC: NCHCN 12:11
PROVIDERS: PCP Family Medicine; Visit Provider Family Medicine
DX: L28.1 Prurigo nodularis (principal)
CPT/HCPCS: 88305

== ENCOUNTER 2020-05-07 17:49 | Outpatient (REF) | payer MEDICAID, SELFPAY ==
[2020-05-13 13:09] LABS: Benzoylecgonine 341 ng/mL (Cutoff: 50); Cocaine Negative ng/mL (Cutoff: 50); Cocaine Interpretation Positive.
== END 2020-05-07 18:09 ==
LOC: NCHCN 17:49
PROVIDERS: PCP Family Medicine; Visit Provider Family Medicine
DX: F11.10 Opioid abuse, uncomplicated (principal)
CPT/HCPCS: 80353

== ENCOUNTER 2020-11-05 15:24 | Outpatient (REF) | payer MEDICAID, SELFPAY ==
[2020-11-10 15:33] LABS: Coproporphyrin, Tetra 24 nmol/L (<=110); Uroporphyrin, Octa 3 nmol/L (<=30)
== END 2020-11-05 15:44 ==
LOC: LBN 15:24
PROVIDERS: PCP Family Medicine; Visit Provider Family Medicine
DX: L13.9 Bullous disorder, unspecified (principal)
CPT/HCPCS: 84110; 84120

== ENCOUNTER 2020-11-28 01:32 | Outpatient (CLI) | payer MEDICAID, SELFPAY ==
[2020-11-30 10:34] LABS: COVID-19 RT-PCR Result NEGATIVE (Negative)
== END 2020-11-28 01:52 ==
PROVIDERS: PCP Family Medicine; Visit Provider Surgery
DX: Z11.52 Encounter for screening for COVID-19 (principal); Z01.818 Encounter for other preprocedural examination
CPT/HCPCS: U0003

== ENCOUNTER 2020-12-03 06:17 | Day surgery (SDC) | payer MEDICAID, SELFPAY ==
[2020-12-03] VITALS (8 sets, daily range): BP systolic 99–159; BP diastolic 73–99; PULSE 49–70; RESP 10–19; TEMP 36–37; O2SAT 95–100
--- NOTE | 2020-12-03 06:50 | ROE_ITS ---
Date of service: 12/03/20 Time of Service: 07:30 Operative Note Operative Note DATE OF PROCEDURE: 12/03/20 PRE-OP DIAGNOSIS: Anorectal mass POST-OP DIAGNOSIS: other (Internal and external hemorrhoids) PROCEDURE: Exam under anesthesia and hemorrhoidectomy SURGEON: Sera Loredo ARTIST'S REPRESENTATIVE: Precious Castro ANESTHESIA: GABRIELA (ASA 2/ Manohar Martino, JANE) ESTIMATED BLOOD LOSS: 20 PATHOLOGY: other (external hemorrhoid tissue) COMPLICATIONS: None Patient was transported to: PACU Patient's condition: stable Indications: Mr. Henriquez is a pleasant 45-year-old gentleman who has a 2 x 1.5 cm rectal mass. Differential includes external hemorrhoid versus a rectal polyp. It does not look like a thrombosed hemorrhoid. It is also not tender which is unusual. I recommended an excision of the lesion in the operating room. Because of the dislocation it would be way too painful to try to do this in the office. I discussed spinal anesthesia versus general anesthesia. The patient does not want a spinal. He states he has enough back problems and does not want anybody putting a needle into his back. We discussed postoperative pain control with injection of Exparel at the end of the case. Most of the time patient's unfortunately do need narcotics for this procedure. I told him that I would give him a few narcotics. I am concerned as he does have an IV drug abuse history. We will also treat him with ibuprofen, Tylenol and sits baths. He will be sent home with a prescription for stool softener as well. We reviewed the risks, benefits and complications. Complications include but are not limited to bleeding, infection, recurrence, wound dehiscence and need for further surgery depending on the pathology result. Questions were entertained and answered to his satisfaction and he wished to proceed. No guarantees were given or implied. We also discussed Covid testing and quarantine requirements. COVID-19 testing explained to the patient. Reason for test reviewed. Quarantine per state requirements reviewed with patient. Patient understands and agrees to testing. Findings: external hemorrhoids from 6 to 9 o'clock. internal hemorrhoids from 3 to 6 o'clock Procedure Description: Informed consent was obtained the patient was taken to the operating room and placed under general anesthesia and intubated. Once the ET tube was secured the patient was placed in a prone position on the operating room table. Padding was placed under his hips knees, ankles and chest. We made sure that his penis and scrotum were free and not pinched. Tape was then used to pull his buttocks apart. The area was then prepped with iodine and draped in a sterile surgical fashion. The operating room table was placed in a jackknife position. An anoscopy was then performed which revealed grade 2 and 3 internal hemorrhoids from the 3 to 6 o'clock position. There were external hemorrhoids noted from the 6 to 9 o'clock position. The mass that I had noted in the office was an external hemorrhoid. It did have some nodularity to it. A rectal retr actor was placed and the internal hemorrhoids were removed using a hand-held LigaSure. Once the hemorrhoidal tissue was removed this sealed area was oversewn with 2-0 chromic gut. Next the external hemorrhoids located between the 6 and 9 o'clock position were removed with the LigaSure. The tissue was removed and sent to pathology due to its nodularity. The sealed areas were oversewn with 2-0 chromic gut. The rectal area was then infiltrated with a mixture of Exparel and quarter percent bupivacaine for postoperative pain control. 20 cc were injected. A piece of Gelfoam was then soaked in lidocaine and placed into the rectum. The patient's skin was cleaned and dried the tape was removed and a peripad and mesh panties were applied. The patient was then placed in a supine position on the gurney. He was woken up extubated and taken back to PACU in stable condition. Instrument, needle and sponge counts were correct at the end of the case. The patient tolerated the procedure well and there were no immediate complications
[2020-12-03] MEDS: Lactated Ringers 1,000 ML 80 ML IV (06:52)
--- NOTE | 2020-12-03 06:52 | W.PM.DSUDISC ---
Discharge Plan Disposition Patient Disposition: HOME Condition: Good Discharge Details Reason For Visit: internal and external hemorrhoids Attending Provider: Sera Loredo Primary Care Provider: Chon Motta Home Meds and New Rx's Prescriptions: New oxycodone 5 mg tablet 5 mg PO Q6H PRN (Reason: pain) Qty: 14 RF: 0 Continued mirtazapine 7.5 mg tablet 7.5 mg PO QHS RF: 0 clobetasol 0.05 % cream 1 applic topical BID RF: 0 buprenorphine-naloxone [Suboxone] 8-2 mg film 1 film sublingual DAILY RF: 0 fluoxetine 20 mg capsule 40 mg PO DAILY RF: 0 ibuprofen [IBU] 600 mg Tablet 600 mg PO QID PRN PRN (Reason: pain) Qty: 60 RF: 0 Discharge Instructions Instructions: Hemorrhoids (DC), Hemorrhoidectomy (DC), Sitz Bath (DC) Additional Instructions: Activity at Home after surgery: 1. Make sure you walk outside at least 4 times per day 2. You should be able to climb a flight of stairs 3. No driving while in pain or taking pain medications 4. No strenuous activity or heavy lifting for 2 weeks Diet, Nutrition, & wound healin. Avoid alcohol until after you are recovered from your surgery 2. Make sure to eat plenty of lean protein (meat, fish, eggs, cottage cheese, beans) 3. Eat a variety of fruits and vegetables. Eat plenty of high fiber foods to avoid constipation. 4. Drink plenty of liquids to stay hydrated and avoid constipation Pain Medications: 1. Tylenol 650 mg every 6 hours as needed and Ibuprofen 600 mg every 6 hours as needed for pain. You can alternate every 3 hours between the 2 medications 2. If a narcotic has been prescribed take as directed only for breakthrough pain For Constipation: 1. Take Milk of Magnesia or MiraLax as needed daily Other: 1. You may shower daily. Do not scrub the incisions 2. Do not soak the incisions for 1 week 3. Sitz baths every 3-4 hours as needed for comfort Wound Care: 1. Keep the incisions clean and dry Please call our office if you develop: 1. Fevers >101.5 2. Nausea or Vomiting 3. Worsening pain 4. Redness and thick discharge from the wounds If after hours please call the Hospital at and ask to speak to the on-call surgeon Referrals: Sera Loredo MD [ [facility] STAFF PHYSICIAN] - Activity:: Activity as Tolerated Diet:: high fiber Discharge Orders Discharge Orders: Discharge Order (Routine); Ordered 12/03/20 Ordered By: Sera Loredo
[2020-12-03] MEDS: metroNIDAZOLE 500 MG/100 ML BAG 100 MG IVPB (07:00)
[2020-12-03] MEDS: Bupivacaine 0.5% Pres-Free 30 ML VIAL (08:01)
--- NOTE | 2020-12-03 08:07 | HEM_PTH ---
PATIENT: Kevin Paulino LOC: [facility] U#:[id number] AGE/SX: 45/M ROOM: RE12/03/[address]: Sera Loredo MD : 1975 BED: DIS: 12/03/2020 SPEC #: [id number] RECD: 12/03/20 12:55 STATUS: RENATA REQ #: [id number] TAYLOR: 12/03/20 08:[address]: Sera Loredo DEPT: Surgical Specimen RECD BY: Abi Hill ENTERED: 12/03/20 12:56 SP TYPE: Hem OTHR DR: Chon Motta Tissues: 1 - HEMORRHOIDS Procedures: GROSS AND MICRO LEVEL 3 Comments: [id number]
[2020-12-03] MEDS: Lidocaine 2% Jelly 11 ML SYR (08:28)
[2020-12-03] MEDS: Gelatin SPONGE 12-7 MM PKT 1 EACH TP (08:28)
== END 2020-12-03 10:25 | disposition home or self-care (01) ==
PROVIDERS: PCP Family Medicine; Visit Provider Surgery
PROC: (CPT 46260; principal; 2020-12-03 07:30)
DX: K64.1 Second degree hemorrhoids (principal); K64.2 Third degree hemorrhoids; K64.8 Other hemorrhoids
CPT/HCPCS: 46260; 88304; J1100; J1885; J2250; J2405; J2704

== ENCOUNTER 2021-03-23 15:55 | Outpatient (REF) | payer MEDICAID, SELFPAY ==
[2021-03-27 14:38] LABS: 2-OH-Ethyl-Flurazepam Negative ng/mL (Cutoff: 10); 7-NH-Clonazepam Negative ng/mL (Cutoff: 10); 7-NH-Flunitrazepam Negative ng/mL (Cutoff: 10); Alpha OH-Alprazolam Negative ng/mL (Cutoff: 10); Alpha-OH Midazolam Negative ng/mL (Cutoff: 10); Alpha-OH-Triazolam Negative ng/mL (Cutoff: 10); Alprazolam Negative ng/mL (Cutoff: 10); Benzodiazepines Interpretation Negative.; Chlordiazepoxide Negative ng/mL (Cutoff: 10); Clobazam Negative ng/mL (Cutoff: 10); Clonazepam Negative ng/mL (Cutoff: 10); Diazepam Negative ng/mL (Cutoff: 10); Flurazepam Negative ng/mL (Cutoff: 10); Lorazepam Negative ng/mL (Cutoff: 10); Midazolam Negative ng/mL (Cutoff: 10); N-Desmethylclobazam Negative ng/mL (Cutoff: 10); Prazepam Negative ng/mL (Cutoff: 10); Temazepam Negative ng/mL (Cutoff: 10); Triazolam Negative ng/mL (Cutoff: 10); Zolpidem Carboxylic acid Negative ng/mL (Cutoff: 10)
== END 2021-03-23 15:56 | disposition home or self-care (01) ==
LOC: NCHCN 15:55
PROVIDERS: PCP Family Medicine; Visit Provider Family Medicine
DX: F11.10 Opioid abuse, uncomplicated (principal)
CPT/HCPCS: 80346

== ENCOUNTER 2021-06-01 14:01 | Outpatient (REF) | payer MEDICAID, SELFPAY ==
[2021-06-04 11:56] LABS: Amphetamine 356 ng/mL (Cutoff: 25); Amphetamines Interpretation Positive.; MDMA (Ecstasy) Negative ng/mL (Cutoff: 25); Methamphetamine Negative ng/mL (Cutoff: 25); Phentermine Negative ng/mL (Cutoff: 25); Pseudoephedrine/Ephedrine Negative ng/mL (Cutoff: 25)
[2021-06-06 16:45] LABS: 2-OH-Ethyl-Flurazepam Negative ng/mL (Cutoff: 10); 7-NH-Clonazepam Negative ng/mL (Cutoff: 10); 7-NH-Flunitrazepam Negative ng/mL (Cutoff: 10); Alpha OH-Alprazolam Negative ng/mL (Cutoff: 10); Alpha-OH Midazolam Negative ng/mL (Cutoff: 10); Alpha-OH-Triazolam Negative ng/mL (Cutoff: 10); Alprazolam Negative ng/mL (Cutoff: 10); Benzodiazepines Interpretation Negative.; Chlordiazepoxide Negative ng/mL (Cutoff: 10); Clobazam Negative ng/mL (Cutoff: 10); Clonazepam Negative ng/mL (Cutoff: 10); Diazepam Negative ng/mL (Cutoff: 10); Flurazepam Negative ng/mL (Cutoff: 10); Lorazepam Negative ng/mL (Cutoff: 10); Midazolam Negative ng/mL (Cutoff: 10); N-Desmethylclobazam Negative ng/mL (Cutoff: 10); Prazepam Negative ng/mL (Cutoff: 10); Temazepam Negative ng/mL (Cutoff: 10); Triazolam Negative ng/mL (Cutoff: 10); Zolpidem Carboxylic acid Negative ng/mL (Cutoff: 10)
== END 2021-06-01 14:02 | disposition home or self-care (01) ==
LOC: NCHCN 14:01
PROVIDERS: PCP Family Medicine; Visit Provider Family Medicine
DX: F11.10 Opioid abuse, uncomplicated (principal)
CPT/HCPCS: 80324; 80346

== ENCOUNTER 2021-06-29 18:34 | Emergency (ER) | payer OTHER, MEDICAID, SELFPAY ==
[2021-06-29 18:38] VITALS: BP 131/83; PULSE 82; TEMP 37; O2SAT 97
--- NOTE | 2021-06-29 18:45 | DI.RAD_ITS ---
Exam(s) XR RIBS LT W PA LAT CHEST CLINICAL HISTORY: Fall, Left posterior rib pain. COMPARISON: CR XR CHEST 2V PA LATERAL from 03/18/2019 FINDINGS: LUNGS: Clear. No pleural abnormality seen. HEART: Normal. MEDIASTINUM: Normal. BONES: No displaced rib fracture is seen. No bony destructive lesion is seen. There is thoracic kyphosis, unchanged. IMPRESSION: 1. Unremarkable radiographic appearance of the left ribs. 2. No acute pulmonary findings.
--- NOTE | 2021-06-29 18:50 | W.ED.GENAD ---
Discharge Plan Disposition Patient Disposition: HOME Condition: Stable Discharge Details Clinical Impression: Fall (on) (from) other stairs and steps, initial encounter, Thoracic back sprain Primary Care Provider: Chon Motta ED Provider: Sarah Shah Home Meds and New Rx's Prescriptions: No Action mirtazapine 7.5 mg tablet 7.5 mg PO QHS RF: 0 clobetasol 0.05 % cream 1 applic topical BID RF: 0 buprenorphine-naloxone [Suboxone] 8-2 mg film 1 film sublingual DAILY RF: 0 fluoxetine 20 mg capsule 40 mg PO DAILY RF: 0 Discharge Instructions Instructions: Muscle Spasm (ED) Additional Instructions: At this time x-rays show no evidence for fracture or lung abnormality. Alternate ice and heat. Please take Tylenol or Ibuprofen with food every 4-6 hours as needed for pain and swelling. Please take the muscle relaxers as directed for muscle spasm. Return to the ER for any worsening shortness of breath, coughing up blood, abdominal pain or blood in your stools. Follow up with primary care provider in 3-5 days. Return to ED sooner if any worsening or concerns. Increase oral fluids. Stand Alone Forms: Work Release Referrals: Chon Motta [Primary Care Provider] - Discharge Data Discharge Date/Time-TO BE ENTERED AT DEPARTURE: 06/29/21 20:10 Medical Decision Making 26-year-old male presents to the emergency room with chief complaint left side back pain. Patient reports that he fell couple hours ago off a ladder onto a staging bar. He denies hitting his head or loss of consciousness no midline C-spine tenderness denies any chest pain or abdominal pain or any other associated symptoms. He does have some tenderness to palpation to the left lateral posterior rib cage, no crepitus or step-off palpated. Does have bilateral lung sounds on examination. No other signs of trauma. Patient does have a past medical history of Vitiligo, IV drug abuse none currently, insomnia, hepatitis C and hepatitis B. He did not take any medications for the pain prior to arrival. At this time rib series with AP lateral chest ordered with Flexeril and ibuprofen. On my initial exam patient is standing in room ambulatory speaking in full sentences in no acute distress. Imaging protocol: XR of the chest. Views: 2 views. COMPARISON: CR XR CHEST 2V PA LATERAL 03/18/2019 3:53 PM FINDINGS: Lungs: Unremarkable. No consolidation. Pleural spaces: Unremarkable. No pleural effusion. No pneumothorax. Heart/Mediastinum: Unremarkable. No cardiomegaly. Bones/joints: Unremarkable. IMPRESSION: No acute findings. Thank you for allowing us to participate in the care of your patient. Dictated and Authenticated by: Haris Rizzo MD Patient reevaluation: Upon entering room patient is texting on his phone and appears in no acute distress. Discussed x-ray results with patient who verbalizes understanding. Discussed home care including alternating ice and heat and the muscle relaxers. Patient verbalized understanding. Instructed to follow-up with PCP. This text was generated using Pixif[employer] dictation system, please disregard any oddities of phrase or misspellings. HPI General Mode of arrival: ambulatory. Date/Time Provider Initiated Documentation: 06/29/21 18:38. Limitations to Documentation: no limitations. Information obtained by: patient, RN notes reviewed and old records reviewed. HPI Narrative: 26-year-old male presents to the emergency room with chief complaint left side back pain. Patient reports that he fell couple hours ago off a ladder onto a staging bar. He denies hitting his head or loss of consciousness no midline C-spine tenderness denies any chest pain or abdominal pain or any other associated symptoms. He does have some tenderness to palpation to the left lateral posterior rib cage, no crepitus or step-off palpated. Does have bilateral lung sounds on examination. No other signs of trauma. Patient does have a past medical history of Vitiligo, IV drug abuse none currently, insomnia, hepatitis C and hepatitis B. He did not take any medications for the pain prior to arrival. Related Data Home Medications Medication Instructions Recorded Confirmed buprenorphine 8 mg-naloxone 2 mg 1 film SUBLINGUAL DAILY 11/11/20 12/26/20 sublingual film clobetasol 0.05 % topical cream 1 applic TOPICAL BID 11/11/20 12/26/20 fluoxetine 20 mg capsule 40 mg PO DAILY cap 11/11/20 12/26/20 mirtazapine 7.5 mg tablet 7.5 mg PO QHS 11/11/20 12/26/20 Allergies Allergy/AdvReac Type Severity Reaction Status Date / Time gabapentin Allergy Intermediate Itching, Unverified 06/29/21 18:42 jumpy vancomycin AdvReac Severe DRESS Verified 06/29/21 18:42 SYNDROME General Stated Complaint: Nk/Back Pain CY: 3 Review of Systems All systems reviewed & are unremarkable except as noted in HPI and below ENT Ears, Nose, Mouth, and Throat: Denies neck pain Musculoskeletal Musculoskeletal: Reports back pain, Denies deformity and Denies neck pain [facility] Medical History Alcohol abuse, in remission Arthralgia of left acromioclavicular joint (05/18/17) Bacteremia Bullous skin disease Closed fracture of ankle (11/08/13) Depression DRESS syndrome Endocarditis Hepatitis B Hepatitis C antibody test positive Incomplete tear of left rotator cuff (04/25/17) Insomnia IV drug abuse Prurigo nodularis Pulmonary nodule Tobacco abuse Trochanteric bursitis Vitiligo Surgical History H/O arthroscopy of shoulder Left shoulder. S/P hemorrhoidectomy Social History Smoking/Tobacco Use Status: Current every day Tobacco Type: cigarettes Smoking packs per day: 0.5 Smoking cigarettes per day: 10.0 Smoking risk assessment performed?: Yes Alcohol Intake: former Drug use: Occasionally Substance use type: marijuana, crack/cocaine and other Details: Current IVDA. Details: Pt. states just marijuana Current gender identity: male Do you feel safe at home: Yes Do you feel safe in your relationship?: Yes Exam Narrative Exam Narrative: General: Well Developed, Awake and Alert, conversant. Skin: Warm and Dry HEENT: Head: No palpable deformities, Normocephalic Eyes: Pupils PERRLA, EOM's intact. No periorbital eccymosis or step off Ears: Canal patent. Tympanic membranes are clear . No casanova's sign, no hemptympanum. Nose/Face: Atraumatic. Facial bones nontender to palpation and stable with manipulation. Mouth/Throat: No intraoral trauma. Teeth and mandible are intact. Neck: No midline tenderness, no step off, no deformity to palpation of C-spine. Trachea midline. Chest: No surface trauma. Without crepitus or deformity. Lungs clear to ausculatation bilaterally. Tenderness to left posterior rib cage with palpation. Heart: RRR, no rubs, murmurs or gallop. Abdomen: No abrasions, ecchymosis, or surface trauma. Nondistended. Nontender to palpation no guarding, rebound, or rigidity. Pelvis: Nontender to palpation and stable to compression. Femoral pulses strong and equal Extremities: no surface trauma. Sensation intact. Peripheral pulses intact and equal. Neuro: ANO x4, GCS 15, cranial nerves II through XII intact. Motor and sensory exam nonfocal. Reflexes are symmetric. Course Vital Signs Vital signs: Vital Signs Temperature 37.0 C 06/29/21 18:38 Pulse 82 06/29/21 18:38 Blood Pressure 131/83 06/29/21 18:38 Pulse Oximetry 97 06/29/21 18:38 Temperature 37.0 C 06/29/21 18:38 Temperature Source Temporal Artery Scan 06/29/21 18:38 Pulse 82 06/29/21 18:38 Respiratory Effort Non-Labored 06/29/21 18:41 Blood Pressure 131/83 06/29/21 18:38 Blood Pressure Position Standing 06/29/21 18:38 Pulse Oximetry 97 06/29/21 18:38 Oxygen Delivery Method Room Air 06/29/21 18:38 Oxygen Flow Rate 0 06/29/21 18:38 Pain Level 8 06/29/21 18:38
[2021-06-29] MEDS: Cyclobenzaprine 10 MG TAB PO (19:13)
[2021-06-29] MEDS: Ibuprofen 800 MG TAB PO (19:13)
--- NOTE | 2021-06-29 19:52 | DI.VRAD_ITS ---
PROCEDURE INFORMATION: Exam: XR Left Ribs Exam date and time: 06/29/2021 6:51 PM Age: 46 years old Clinical indication: Chest wall pain and left-sided; Patient HX: Fall, left posterior rib pain; TECHNIQUE: Imaging protocol: XR Left ribs. Views: 2 views. COMPARISON: CR XR CHEST 2V PA LATERAL 03/18/2019 3:53 PM FINDINGS: Bones/joints: No displaced fracture Soft tissues: Normal. IMPRESSION: No acute findings. For persistent clinical concern, CT is offered for higher sensitivity PROCEDURE INFORMATION: Exam: XR Chest Exam date and time: 06/29/2021 6:51 PM Age: 46 years old Clinical indication: Chest wall pain and left-sided; Patient HX: Fall, left posterior rib pain; TECHNIQUE: Imaging protocol: XR of the chest. Views: 2 views. COMPARISON: CR XR CHEST 2V PA LATERAL 03/18/2019 3:53 PM FINDINGS: Lungs: Unremarkable. No consolidation. Pleural spaces: Unremarkable. No pleural effusion. No pneumothorax. Heart/Mediastinum: Unremarkable. No cardiomegaly. Bones/joints: Unremarkable. IMPRESSION: No acute findings. Dictated and Authenticated by: Haris Rizzo MD. Ordering:LISA Smith MD
[2021-06-29] MEDS: Cyclobenzaprine 10 MG TAB, 3 TABS/BTL PO (20:10)
== END 2021-06-29 20:10 | disposition home or self-care (01) ==
PROVIDERS: Emergency Provider Registered Nurse Emergency; PCP Family Medicine
DX: S23.3XXA Sprain of ligaments of thoracic spine, initial encounter (principal); W11.XXXA Fall on and from ladder, initial encounter; R07.81 Pleurodynia
CPT/HCPCS: 99283; 71046; 71100

== ENCOUNTER 2021-08-28 02:13 | Outpatient (CLI) | payer MEDICAID, SELFPAY ==
[2021-08-28 13:09] LABS: ALT 22 U/L (16-63); AST 16 U/L (15-37); Albumin 3.9 g/dL (3.4-5.0); Alkaline Phosphatase 117 U/L (46-116); Anion Gap 7.3 mmol/L (3-11); BUN 13 mg/dL (7-18); Bilirubin, Total 0.4 mg/dL (0.2-1.0); CO2 28.7 mmol/L (21.0-32.0); CREATININE 0.7 mg/dL (0.70-1.30); Calcium 8.7 mg/dL (8.5-10.1); Calculated LDL 193 mg/dL (<100); Chloride 104 mmol/L (98-107); Cholesterol 257 mg/dL (<200); Glucose 98 mg/dL (74-106); HDL Cholesterol 40 mg/dL (40-60); Potassium 4.2 mmol/L (3.5-5.1); Sodium 140 mmol/L (136-145); Triglyceride 123 mg/dL (<150)
[2021-08-29 09:44] LABS: HIV-1/2 Ag & Ab Screen Negative (Negative)
[2021-08-31 12:45] LABS: HCV RNA Qualitative Undetected (Undetected)
== END 2021-08-28 02:14 | disposition home or self-care (01) ==
LOC: LBO 02:13
PROVIDERS: PCP Family Medicine
DX: R17 Unspecified jaundice (principal); Z13.220 Encounter for screening for lipoid disorders; Z87.19 Personal history of other diseases of the digestive system; Z11.4 Encounter for screening for human immunodeficiency virus [HIV]
CPT/HCPCS: 36415; 80053; 80061; 87389; 87522

== ENCOUNTER 2022-01-11 19:38 | Outpatient (REF) | payer MEDICAID, SELFPAY ==
[2022-01-15 14:24] LABS: Amphetamine 503 ng/mL (Cutoff: 25); Amphetamines Interpretation Positive.; MDA (Ecstasy Metabolite) Negative ng/mL (Cutoff: 25); MDMA (Ecstasy) Negative ng/mL (Cutoff: 25); Methamphetamine Negative ng/mL (Cutoff: 25); Phentermine Negative ng/mL (Cutoff: 25); Pseudoephedrine/Ephedrine Negative ng/mL (Cutoff: 25)
== END 2022-01-11 19:39 | disposition home or self-care (01) ==
LOC: NCHCN 19:38
PROVIDERS: PCP Family Medicine; Visit Provider Family Medicine
DX: F11.10 Opioid abuse, uncomplicated (principal)
CPT/HCPCS: 80324

== ENCOUNTER 2022-12-27 12:21 | Outpatient (CLI) | payer MEDICAID, SELFPAY ==
--- NOTE | 2022-12-27 14:55 | DI.RAD_ITS ---
Exam(s) XR THORACIC SPINE COMPLETE EXAM: XR THORACIC SPINE COMPLETE CLINICAL HISTORY: BACK PAIN THORACIC REGION M54.6. TECHNIQUE: 2D digital imaging was performed. Three views. COMPARISON: CR THORACIC SPINE from 04/09/2009 CR,XR XR RIBS LT W PA LAT CHEST from 06/29/2021 FINDINGS: BONES: Stable mild anterior wedging of midthoracic vertebral bodies. ALIGNMENT: Stable thoracic kyphosis. DISKS: Narrowing and endplate osteophytes, projecting anteriorly in the mid through lower thoracic sp ine. SOFT TISSUE: Visualized lungs are clear. IMPRESSION: Kyphosis and degenerative disc changes. DATA REPOSITORY: RADIATION DOSE DELIVERED:
== END 2022-12-27 12:41 ==
LOC: DI 12:21
PROVIDERS: PCP Family Medicine; Visit Provider Family Medicine
DX: M40.204 Unspecified kyphosis, thoracic region (principal); M47.814 Spondylosis without myelopathy or radiculopathy, thoracic region
CPT/HCPCS: 72072

== ENCOUNTER 2023-10-12 10:39 | Emergency (ER) | payer MEDICAID, SELFPAY ==
[2023-10-12 10:43] VITALS: BP 131/88; PULSE 98; RESP 22; TEMP 37.2; O2SAT 99
--- NOTE | 2023-10-12 11:36 | ED.GENADUL_ITS ---
Discharge Plan Disposition Patient Disposition: Home Condition: Stable Discharge Details Chief Complaint: RespSymp Clinical Impression: COVID Primary Care Provider: Chon Motta ED Provider: Destin Mackay Home Meds and New Rx's Prescriptions: No Action dextroamphetamine-amphetamine [Adderall XR] 20 mg capsule,extended release 24hr 40 mg PO DAILY diazepam [Valium] 10 mg tablet 10 mg PO ONCE PRN (Reason: premedication) Qty: 1 0RF Rx Instructions: Take 1 hour prior to procedure. 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 Please stay hydrated continue with ibuprofen and/or acetaminophen as needed for pain and fever. Medical Decision Making 48-year male presents with body ache fatigue nausea. Nontoxic no respiratory distress afebrile here. COVID-positive. Symptoms likely related to COVID viral infection. Trial of dexamethasone Zofran fluid hydration and rest. Home care instructions and return precautions. Low suspicion for superimposed pneumonia or other serious bacterial infection at this time. HPI General Date/Time Provider Initiated Documentation: 10/12/23 11:05 . HPI Narrative: 48-year-old male presents with body aches chills and fatigue. Took Tylenol at home. Related Data Home Medications Medication Instructions Recorded Confirmed clobetasol 0.05 % topical cream 1 applic topical BID 11/11/20 12/26/20 dextroamphetamine-amphetamine ER 40 mg PO DAILY 05/30/23 20 mg 24hr capsule,extend release (Adderall XR) diazepam 10 mg tablet (Valium) 10 mg PO ONCE PRN premedication #1 05/30/23 05/30/23 tab Previous Rx's Medication Instructions Recorded diazepam 10 mg tablet (Valium) 10 mg PO ONCE PRN premedication #1 05/30/23 tab Allergies Allergy/AdvReac Type Severity Reaction Status Date / Time gabapentin Allergy Intermediate Itching, Unverified 10/12/23 10:43 jumpy vancomycin AdvReac Severe DRESS Verified 10/12/23 10:43 SYNDROME General Stated Complaint: RespSymp CY: 4 Review of Systems Narrative: Review of Systems Constitutional: Fatigue, fever Eyes: negative ENT: negative Cardiovascular: negative Respiratory: negative Gastrointestinal: negative : negative Musculoskeletal: negative Skin: negative Neurologic: negative Psych: negative PFSH All Active Problems (Updated 10/12/23 @ 11:38 by Destin Mackay MD) COVID (Acute) Hepatitis C (Chronic) HSV (herpes simplex virus) anogenital infection (Acute) Alcohol abuse (Chronic) Actinic keratosis (Acute) Exposure to hepatitis B (Acute) Cocaine abuse (Acute) Opioid abuse (Acute) Hemorrhoids (Acute) Erectile dysfunction (Acute) ADHD (Acute) Ulnar neuropathy (Acute) Restless legs (Acute) Rotator cuff syndrome (Acute) Fall (on) (from) other stairs and steps, initial encounter (Acute) Thoracic back sprain (Acute) Fever (Acute) Red man syndrome (Acute) Rectal lesion (Acute) Headache (Acute) Elevated bilirubin (Acute) Vitiligo (Acute) Tobacco abuse (Acute) Hepatitis C antibody test positive (Acute) IV drug abuse (Acute) Bacteremia (Acute) Medical History Alcohol abuse, in remission Arthralgia of left acromioclavicular joint (05/18/17) Bullous skin disease Closed fracture of ankle (11/08/13) Depression DRESS syndrome Endocarditis Hepatitis B Incomplete tear of left rotator cuff (04/25/17) Insomnia Prurigo nodularis Pulmonary nodule Trochanteric bursitis Surgical History H/O arthroscopy of shoulder Left shoulder. S/P hemorrhoidectomy Social History Smoking/Tobacco Use Status: Current every day Tobacco Type: cigarettes Smoking packs per day: 0.5 Smoking cigarettes per day: 10.0 Smoking risk assessment performed?: Yes Alcohol Intake: former Drug use: Occasionally Substance use type: marijuana, crack/cocaine and other Details: Current IVDA. Details: Pt. states just marijuana Current gender identity: male Do you feel safe at home: Yes Do you feel safe in your relationship?: Yes Exam Narrative Exam Narrative: Physical Examination General: alert, awake, cooperative, resting comfortably, no acute distress HEENT: normocephalic, atraumatic; PERRL, EOM intact, conjunctiva normal; no nasal discharge; moist mucous membranes, oral and pharyngeal mucosa normal, tolerating secretions Neck: supple, trachea midline; full ROM Chest: normal to inspection Respiratory: normal respiratory effort, speaking in full sentences GI: abdomen soft, non-tender, non-distended; no palpable mass or hepatosplenomegaly Skin: no lesions, rashes or trauma appreciated Neuro: AAOx3, normal speech, moving all extremities Course Vital Signs Vital signs: Vital Signs Temperature 37.2 C 10/12/23 10:43 Pulse 98 H 10/12/23 10:43 Respiratory Rate 22 10/12/23 10:43 Blood Pressure 131/88 10/12/23 10:43 Pulse Oximetry 99 10/12/23 10:43 Temperature 37.2 C 10/12/23 10:43 Temperature Source Oral 10/12/23 10:43 Pulse 98 H 10/12/23 10:43 Respiratory Rate 22 10/12/23 10:43 Respiratory Effort Normal 10/12/23 10:47 Blood Pressure 131/88 10/12/23 10:43 Blood Pressure Position Sitting 10/12/23 10:43 Pulse Oximetry 99 10/12/23 10:43 Oxygen Delivery Method Room Air 10/12/23 10:43 Oxygen Flow Rate 0 10/12/23 10:43
[2023-10-12] MEDS: Dexamethasone 10 MG/ML VIAL PO (11:39)
[2023-10-12] MEDS: Ondansetron O.D.T. 4 MG TABEF SL (11:39)
== END 2023-10-12 11:45 | disposition home or self-care (01) ==
LOC: ER 11:39
PROVIDERS: Emergency Provider Emergency Medicine; PCP Family Medicine
DX: U07.1 COVID-19 (principal); Z11.52 Encounter for screening for COVID-19
CPT/HCPCS: 87426; 99283; J1100

== ENCOUNTER 2023-12-12 18:41 | Outpatient (REF) | payer MEDICAID, SELFPAY ==
[2023-12-12 19:15] LABS: Calculated LDL 154 mg/dL (<100); Cholesterol 259 mg/dL (<200); HDL Cholesterol 42 mg/dL (40-60); Triglyceride 317 mg/dL (<150)
== END 2023-12-12 18:42 | disposition home or self-care (01) ==
LOC: NCHCN 18:41
PROVIDERS: PCP Family Medicine; Visit Provider Family Medicine
DX: E78.5 Hyperlipidemia, unspecified (principal)
CPT/HCPCS: 80061

== ENCOUNTER 2024-06-03 20:10 | Emergency (ER) | payer MEDICAID, SELFPAY ==
--- OUTSIDE RECORDS SUMMARY | 2024-06-03 20:21 | XMS_ITS | Data Portability ---
Author Organization [facility] Address [address] [place] [address] Assessment No assessment recorded. Plan of Treatment Reminders Order Date Submit Date Provider Last Modified By Organization Details Last Modified Time Details Appointments None recorded. Lab lipid panel, serum 2023 Formerly [facility], [facility] (Registration ), [address] [place] [address] , [place], [address], 4 10:50:21 drug screen, urine 2023 024 [facility], [address], [place], [address], 4 17:42:58 Referral referral for smoking cessation counseling - would like to quit smoking, interested in hypnosis 2023 [facility], [address], [place], [address], 4 10:26:51 Procedures None recorded. Surgeries None recorded. Imaging None recorded. Medication Orders dextroamphe tamine-amph etamine ER 20 mg 24hr capsule,ext end release 2023 024 [facility], [address] [facility], [place], [address], 4 17:43:01 dextroamphe tamine-amph etamine ER 20 mg 24hr capsule,ext end release 2023 024 [facility], [address] [place], [address], 17:42:59 dextroamphe tamine-amph etamine ER 20 mg 24hr capsule,ext end release 2023 024 [facility], [address] [place], [address], 17:42:59 Patient TargetsNo targets recorded. Patient InstructionsNo instructions recorded. Reason for Referral Referral For Smoking Cessati on Counseling for Tobacco use cessation education would like to quit smoking, interested in hypnosis Referring Physician: Giovana Motta, Family Medicine, Encounter Date: 12/12/2023 Results Created Date Observation Date Name Description Value Unit Range Abnormal Flag LastModifiedBy Organization Detail LastModifiedTime 12/12/19 24 12/12/2023 LIPID 2 cholesterol 259 mg/dL <200 high Not Available Amanda [address] [place], [address] 12/12/2023 19:16:56 12/12/19 24 12/12/2023 LIPID 2 triglyceride 317 mg/dL <150 high Not Available Jeane [address] [place], [address] 12/12/2023 19:16:56 12/12/19 24 12/12/2023 LIPID 2 HDL cholesterol 42 mg/dL 40-60 Not Available Ward youngblood [address] [place], [address] 12/12/2023 19:16:56 12/12/19 24 12/12/2023 LIPID 2 calculated LDL 154 mg/dL <100 high Not Available Mary jefferson [address] [place], [address] 12/12/2023 19:16:56 12/12/19 24 12/12/2023 drug scree n, urine Amphetamines : positi ve Not Available [facility] [address], [place], [address], 12/12/2023 17:38:14 12/12/19 24 12/12/2023 drug scree n, urine Barbiturates : negati ve Not Available [facility] [address], [place], [address], 12/12/2023 17:38:14 12/12/19 24 12/12/2023 drug scree n, urine BUP: positi ve Not Available [facility] [address], [place], [address], 12/12/2023 17:38:14 12/12/19 24 12/12/2023 drug scree n, urine Benzodiazepi makenzie: negati ve Not Available [facility] [address], [place], [address], 12/12/2023 17:38:14 12/12/19 24 12/12/2023 drug scree n, urine Cocaine: negati ve Not Available [facility] [address], [place], [address], 12/12/2023 17:38:14 12/12/19 24 12/12/2023 drug scree n, urine EDDP (Methadone Metabolite) negati ve Not Available [facility] [address], [place], [address], 12/12/2023 17:38:14 12/12/19 24 12/12/2023 drug scree n, urine (MET) Methamphetam ine: negati ve Not Available [facility] [address], [place], [address], 12/12/2023 17:38:14 12/12/19 24 12/12/2023 drug scree n, urine MDMA: negati ve Not Available [facility] [address], [place], [address], 12/12/2023 17:38:14 12/12/19 24 12/12/2023 drug scree n, urine MTD (Methadone): negati ve Not Available [facility] [address], [place], [address], 12/12/2023 17:38:14 12/12/19 24 12/12/2023 drug scree n, urine Muv133 (Opiate): negati ve Not Available [facility] [address], [place], [address], 12/12/2023 17:38:14 12/12/19 24 12/12/2023 drug scree n, urine OXY (Oxycodone): negati ve Not Available [facility] [address], [place], [address], 12/12/2023 17:38:14 12/12/19 24 12/12/2023 drug scree n, urine TCA: negati ve Not Available [facility] [address], [place], [address], 12/12/2023 17:38:14 12/12/19 24 12/12/2023 drug scree n, urine THC: positi ve Not Available [facility] [address], [place], [address], 12/12/2023 17:38:14 Result Notes None recorded. Problems Name Status Onset Date Resolution Date Notes Provider Name and Address Organization Details Recorded Time Insomnia Active 200805/21/2020 - Comments only - Giovana Motta MD - Improved on 20mg doxepin. Mood overall has improved as well as sleep. Can refill at 25mg to make it easier for him, but would not push dose higher as also on SSRI. Problem Code: G47.00; Problem Code Type: ICD-10; Not Available [facility] 3 04:35:12 Vitiligo Active 2011 Problem Code: L80; Problem Code Type: ICD-10; Not Available [facility], [facility] 3 04:35:12 Herpesvirus infection Active 2013 Problem Code: B00.9; Problem Code Type: ICD-10; Not Available [facility], [facility] 3 04:35:12 Tobacco use cessation education Active 201610/13/2018 - Comments only - Giovana Motta MD - Weight gain has been significant issue. Discussed buprpion but hasn't helped in past. Continue chantix, TCA might also help. Problem Code: Z71.6; Problem Code Type: ICD-10; Not Available [facility], [facility] 3 04:35:12 Lesion of oral mucosa Completed 201701/11/2018 Problem Code: K13.79; Problem Code Type: ICD-10; Not Available [facility], [facility] 3 04:35:12 History of disorder of digestive system Active 201701/09/2020 - Comments only - Giovana Motta MD - SVR confirmed. Problem Code: Z87.19; Problem Code Type: ICD-10; Not Available [facility], [facility] 3 04:35:12 Solitary nodule of lung Active 2017 Problem Code: R91.1; Problem Code Type: ICD-10; Not Available [facility], [facility] 3 04:35:12 Actinic keratosis Active 201801/11/2022 - Comments only - Giovana Motta MD - lesions may be AK. Given his risk, should have regular derm f/u Problem Code: L57.0; Problem Code Type: ICD-10; Not Available [facility] 3 04:35:13 Cocaine abuse Active 201804/30/2020 - Comments only - Giovana Motta MD - Still intermittent use. see above. Deines IVDU Problem Code: F14.10; Problem Code Type: ICD-10; Not Available [facility] 3 04:35:13 Major depression, single episode Active 201906/27/2023 - Comments only - Giovana Motta MD - Mild/moderate symptoms, no worse off medication. He may have seasonal component. He would like to continue off meds for now, reconsider later in fall. Problem Code: F32.9; Problem Code Type: ICD-10; Not Available [facility] 3 04:35:13 Prurigo nodularis Active 201901/14/2021 - Comments only - Giovana Motta MD - We reviwed his history. Current nodular skin most c/w prurigo. Use steroid to limit picking. Given his skin conditions, he really should have regular derm care. Referral placed Problem Code: L28.1; Problem Code Type: ICD-10; Not Available [facility] 3 04:35:13 Greater trochanteric pain syndrome Active 201905/28/2020 - Comments only - Giovana Motta MD - Unclear trigger, but exam c/w trochanteric bursitis. Given handout with exercises/str etches. Reassess if not improving. Problem Code: M70.60; Problem Code Type: ICD-10; Not Available [facility] 3 04:35:14 Eczema Active 202003/09/2022 - Comments only - Giovana Motta MD - His skin is complicated, but he definitely has some eczema type hand dermatitis and chornic paronychia. We discussed hygeine. Can use mod/strong steroid on hands. Has f/u derm as well. Problem Code: L30.9; Problem Code Type: ICD-10; Not Available [facility] 3 04:35:14 Onychomycosis due to dermatophyte Active 202009/21/2021 - Comments only - Giovana Motta MD - Liver looked okay, treat with terbinifine. Problem Code: B35.1; Problem Code Type: ICD-10; Not Available [facility] 3 04:35:14 Erectile dysfunction Active 2020 Problem Code: N52.9; Problem Code Type: ICD-10; Not Available [facility] 3 04:35:14 Epidermoid cyst of skin Active 202011/16/2021 - Comments only - Giovana Motta MD - Offered removal today. Risks, benefits, and alternatives of sebaceous cyst removal reviewed with patient. Patient voiced understaning and gave verbal consent. Area prepped in sterile fashion. Local anesthesia with 1% lidocaine with epinephrine. 5mm punch used to make incision around head cyst, cyst gonzalez dissected and ~1cm cyst removed intact. Minimal EBL. Single 3.0 prolene suture placed. Dressed, discussed wound care. Problem Code: L72.3; Problem Code Type: ICD-10; Not Available [facility] 3 04:35:15 Hyperlipidemi a Active 202009/21/2021 - Comments only - Giovana Motta MD - LDL > 190, so discussed treatment. He would like to work on diet/exercise and consider treatment with statin after antifungal Rx done. Problem Code: E78.5; Problem Code Type: ICD-10; Not Available [facility] 3 04:35:15 Attention deficit hyperactivity disorder Active 202106/27/2023 - Comments only - Giovana Motta MD - Happy with 40mg Adderral XL. Mood stable. No ADRs noted. UDS/VMPS today. Continue 12 weeks follow up plan Problem Code: F90.9; Problem Code Type: ICD-10; Not Available [facility] 3 04:35:15 Lesion of ulnar nerve Active 202105/31/2022 - Comments only - Giovana Motta MD - Exam and histoy suggest ulnar neuropathy more than CTS, though not totally clear. More clearly some ulnar neuropathy on left, were syptoms worse. Discussed padding, soft bracing elbow at night. If not imprvoving consider NCS to confirm. Problem Code: G56.20; Problem Code Type: ICD-10; Not Available [facility] 3 04:35:15 Restless legs Active 202102/28/2023 - Comments only - Giovana Motta MD - No worse after adding neuroleptic at low dose, though still not well controlled. Try 4mg. Problem Code: G25.81; Problem Code Type: ICD-10; Not Available [facility] 3 04:35:15 Rupture of rotator cuff of right shoulder Active 2022 Problem Code: M75.101; Problem Code Type: ICD-10; Not Available [facility] 3 04:35:16 Contraception care management Completed 202203/07/2023 02/28/2023 - Comments only - Giovana Motta MD - Discussed general process of vasectomy, he would like referral Problem Code: Z30.9; Problem Code Type: ICD-10; Not Available [facility] 3 04:35:16 Ingrowing nail Active 2022 Problem Code: L60.0; Problem Code Type: ICD-10; Not Available [facility] 3 04:35:16 Nondependent alcohol abuse in remission Active 200812/01/2018 - Comments only - Giovana Motta MD - Feels stable in recovery, denies relapse. Problem Code: F10.11; Problem Code Type: ICD-10; Not Available [facility] 3 04:35:16 Opioid abuse Active 200810/25/2022 - Comments only - Giovana Motta MD - Admits occiaionaly buprenorphine use, though he doesn't want to restart program. Will monitor. Denies heroin/fenten yl or abusive use. Problem Code: F11.10; Problem Code Type: ICD-10; Not Available [facility] 3 04:35:16 Alcohol abuse Completed 200808/03/2023 Problem Code: F10.10; Problem Code Type: ICD-10; Not Available [facility] 3 04:35:17 Pain in thoracic spine Completed 201605/28/2020 Problem Code: M54.9; Problem Code Type: ICD-10; GIOVANA MOTTA MD [address], [place], [address] , [facility]. 4 17:21:25 Localized eruption of skin Completed 201905/28/2020 Problem Code: R21; Problem Code Type: ICD-10; Not Available [facility] 3 04:35:17 Chronic pain syndrome Completed 200808/03/2023 Problem Code: 338.4; Problem Code Type: ICD-9; Not Available [facility] 3 04:35:17 Pneumonia Completed 201712/01/2018 Problem Code: J18.9; Problem Code Type: ICD-10; Not Available [facility] 3 04:35:18 Backache Completed 200802/03/2017 Not Available [facility] 3 04:35:18 Nondependent alcohol abuse, continuous Completed 200808/03/2023 Problem Code: 305.01; Problem Code Type: ICD-9; Not Available [facility] 3 04:35:18 Genital herpes simplex Completed 201308/03/2023 Problem Code: 054.10; Problem Code Type: ICD-9; Not Available [facility] 3 04:35:19 Pain in limb Completed 200802/03/2017 Not Available [facility] 3 04:35:19 Verruca vulgaris Completed 202008/03/2023 04/08/2021 - Comments only - Giovana Motta MD - Per dermatology seems to have diffuse warts. She gave him a field treatment which I haven't see before (erythromycin /ethanol) but he is requesting to treat the one wart that is bothering him. I offered LN. Risks, benefits, and alternatives of cryotherapy for wart reviewed with patient. Patient voiced understaning and gave verbal consent. LN to wart left 2nd finger x 15-20 sec x 2 rounds, tolerated well. Problem Code: B07.8; Problem Code Type: ICD-10; Not Available [facility] 3 04:35:19 Endocarditis Completed 201708/03/2023 Problem Code: I38; Problem Code Type: ICD-10; Not Available [facility] 3 04:35:19 Arthralgia of the ankle and/or foot Completed 201905/28/2020 Problem Code: M25.572; Problem Code Type: ICD-10; Not Available [facility] 3 04:35:19 Viral hepatitis C Completed 201708/03/2023 12/26/2019 - Comments only - Giovana Motta MD - 12+ weeks s/p 12 weeks Mavyret. Due for VL for SVR Problem Code: B19.20; Problem Code Type: ICD-10; Not Available [facility] 3 04:35:20 Generalized skin eruption caused by drug and medicament Completed 201712/01/2018 Problem Code: L27.0; Problem Code Type: ICD-10; Not Available [facility] 3 04:35:20 Nondependent opioid abuse, episodic Completed 200808/03/2023 01/30/2020 - Comments only - Giovana Motta MD - stable on 8mg. UDS okay this week. 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 To clarify, this previous lesion was AK (not cancer). However he is at risk nad current lesion thick for AK. Will shave. IF cancer, to derm/plastics . Otherwise, try to cover and let heal. Problem Code: L98.9; Problem Code Type: ICD-10; Not Available [facility] 3 04:35:21 Anorectal disorder Completed 201908/03/2023 11/05/2020 - Comments only - Giovana Motta MD - Chronic issue. Not painful, so not c/w external hemorroid. I think most c/w prolapsed internal hemorroid, doesn't look like full rectal prolapse. Doesn't looks like cancerous mass. Will refer to surgery to consider excision. Problem Code: K62.9; Problem Code Type: ICD-10; Not Available [facility] 3 04:35:21 Viral hepatitis B without hepatic coma Completed 201808/03/2023 12/26/2019 - Comments only - Giovana Motta MD - Told dormant. No longer on tenofovir. Repeat LFTs, serologies, viral load. Problem Code: B19.10; Problem Code Type: ICD-10; Not Available [facility] 3 04:35:21 Verruca plantaris Completed 201805/28/2020 Problem Code: B07.0; Problem Code Type: ICD-10; Not Available [facility] 3 04:35:21 Closed fracture of ankle Completed 201202/03/2017 Problem Code: 824.8; Problem Code Type: ICD-9; Not Available [facility] 3 04:35:22 Disorder of nasal sinus Completed 201808/03/2023 01/22/2019 - Comments only - Giovana Motta MD - I am concerned for skin cancer. He thinks it isn't much different, just pickign at it, but to me ulcerated area is much bigger. I recommended biopsy today. Not Available [facility] 3 04:35:22 Shoulder joint pain Completed 201612/01/2018 Problem Code: M25.519; Problem Code Type: ICD-10; Not Available [facility] 3 04:35:22 Asteatosis cutis Completed 201705/28/2020 Problem Code: L85.3; Problem Code Type: ICD-10; Not Available [facility] 3 04:35:22 Problem Notes None recorded. Medical Equipment None Reported. Medications Name Sig Start Date Stop Date Status Note LastModified by Organization Details LastModified Time multivita min tablet by mouth once a day active OTC Not Available Not Available No t Available cyclobenz aprine 10 mg tablet 1 tablet by mouth at bedtime 07/04 completed Not Available Not Available Not Available vitamin A 2,400 mcg capsule Take capsule by mouth once a day active Not Available Not Available No t Available clonidine HCl 0.1 mg tablet Take 1 tablet by mouth every night prn insomnia /restles sness 12/24 completed Not Available Not Available Not Available ropinirol e 1 mg tablet take 1/2 - 1 tablet before sleep at night as needed for restless legs. 09/01 completed Not Available Not Available Not Available trazodone 50 mg tablet one po qhs for sleep 02/19 completed Not Available Not Available Not Available ibuprofen 800 mg tablet TAKE ONE TABLET BY MOUTH THREE TIMES DAILY NEEDED 2023 active Not Available Not Available Not Avai lable Lac-Hydri n 12 % topical cream apply BID to thickene d dry skin 12/26 completed Not Available Not Available Not Available cimetidin e 400 mg tablet 1 TAB three times daily 12/14 completed Not Available Not Available Not Available doxepin 25 mg capsule one po qhs 09/03 completed Not Available Not Available Not Available ibuprofen 200 mg capsule take 2-3 capsules Q8H PRN pain 10/13 completed Not Available Not Available Not Available Nicoderm CQ 21 mg/24 hr daily transderm al patch Apply 1 patch external ly daily to hairless area. Rotate skin sites 07/12 completed Not Available Not Available Not Available prednison e 20 mg tablet take 10 mg daily as instruct ed on taper 10/13 completed [facility] Not Available Not Available Not Available ropinirol e 3 mg tablet Take 1 tablet by mouth every evening 02/28 completed Not Available Not Available Not Available Viagra 50 mg tablet Take 1 tablet by mouth as needed 08/28 completed Not Available Not Available Not Available clobetaso l 0.05 % topical cream Apply to skin twice a day 09/21 completed Not Available Not Available Not Available clindamyc in HCl 150 mg capsule Take 3 capsules PO TID 07/23 completed [facility] Not Available Not Available Not Available Wellbutri n SR 150 mg tablet, 12 hr sustained -release take one tab daily in the morning 12/28 completed Not Available Not Available Not Available Ultram 50 mg tablet 1 tid 11/18 completed Not Available Not Available Not Available hydroxyzi ne HCl 50 mg tablet Take 1 tab by mouth qhs for sleep and/or itch 10/13 completed Not Available Not Available Not Available doxepin 10 mg capsule one po qhs for sleep 2019 active Not Available Not Available Not Avai lable sildenafi l 100 mg tablet TAKE ONE-HALF TABLET BY MOUTH EVERY DAY NEEDED PRIOR TO SEXUAL INTERCOU RSE active Not Available Not Available No t Available triamcino lone acetonide 0.1 % topical cream Apply to skin as needed 09/21 completed Not Available Not Available Not Available Bactroban 2 % topical cream Apply TID to affected area 10/13 completed Not Available Not Available Not Available Zofran 4 mg tablet take 1 tablet PO Q8H PRN nausea/v omiting 06/23 completed [facility] Not Available Not Available Not Available terbinafi ne HCl 250 mg tablet Take 1 tablet by mouth once a day as directed for nails 12/14 completed Not Available Not Available Not Available amitripty line 25 mg tablet 1 tab at bedtime for pain and sleep 01/22 completed Not Available Not Available Not Available dextroamp hetamine- amphetami ne ER 20 mg 24hr capsule,e xtend release TAKE TWO CAPSULES BY MOUTH EVERY DAY active Not Available Not Available No t Available trazodone 100 mg tablet one po qhs for sleep 12/26 completed Not Available Not Available Not Available Vitamin C oral powder tablet by mouth single dose 1,000 mcg active OTC Not Available Not Available No t Available hydrocort isone 1 % topical cream apply to affected area BID 10/13 completed [facility] Not Available Not Available Not Available Tylenol 500 mg tablet take 2 tabs PO Q4H PRN pain 10/13 completed Not Available Not Available Not Available ropinirol e 2 mg tablet Take 1 tablet by mouth every evening 10/31 completed Not Available Not Available Not Available naproxen sodium 550 mg tablet Take 1 tablet by mouth twice a day as needed for pain take twice a day for 2 weeks, then as needed, with food 08/04 completed Not Available Not Available Not Available trazodone 150 mg tablet 1 .5TAB QHS 04/30 completed Not Available Not Available Not Available ibuprofen 200 mg tablet 400-600m g .TID prn pain 2011 active Not Available Not Available Not Avai lable betametha sone dipropion ate 0.05 % topical cream Apply a small amount to affected area twice a day as needed to thick skin on hands 06/28 completed Not Available Not Available Not Available omeprazol e 20 mg capsule,d elayed release 1 capsule by mouth daily for stomach 10/13 completed Not Available Not Available Not Available Adderall XR 10 mg capsule,e xtended release Take 1 capsule by mouth once a day with 30mg, total 40mg/day 09/01 completed Not Available Not Available Not Available Valtrex 500 mg tablet 2 TABS twice daily 09/09 completed Not Available Not Available Not Available tenofovir disoproxi l fumarate 300 mg tablet 12/26 completed [facility] Not Available Not Available Not Available mupirocin 2 % topical ointment 09/21 completed Not Available Not Available Not Available diazepam 10 mg tablet TAKE 1 TABLET BY MOUTH 1 HOUR PRIOR TO PROCEDUR E NEEDED (MUST HAVE A CERTIFIED RECREATIONAL THERAPIST) 12/12 completed Not Available Not Available Not Available levofloxa mica 750 mg tablet Take 1 tab by mouth daily 06/19 completed [facility] Not Available Not Available Not Available dextroamp hetamine- amphetami ne ER 30 mg 24hr capsule,e xtend release Take 1 capsule by mouth once a day 05/03 completed Not Available Not Available Not Available ketoconaz ole 2 % topical cream Apply to skin twice a day 09/21 completed Not Available Not Available Not Available fluoxetin e 20 mg capsule Take 2 tablet by mouth once a day 06/27 completed Not Available Not Available Not Available methylphe nidate ER 36 mg tablet,ex tended release 24 hr Take 1 tablet by mouth once a day 02/28 completed Not Available Not Available Not Available nabumeton e 500 mg tablet 1-2 tab twice daily 06/01 completed Not Available Not Available Not Available ropinirol e 4 mg tablet TAKE ONE TABLET BY MOUTH EVERY EVENING 2023 active Not Available Not Available Not Avai lable vitamin A 10,000 unit tablet oral 12/14 completed Not Available Not Available Not Available erythromy mica with ethanol 2 % topical gel 09/21 completed Not Available Not Available Not Available daptomyci n 500 mg intraveno us solution 500 mg via IV QHS at 8:00 PM 08/03 completed [facility] Not Available Not Available Not Available mirtazapi ne 7.5 mg tablet Take 1 tablet by mouth every night 06/17 completed Not Available Not Available Not Available aripipraz ole 2 mg tablet Take 1 tablet by mouth every night with fluoxeti ne 06/27 completed Not Available Not Available Not Available cholecalc iferol (vitamin D3) 50 mcg (2,000 unit) capsule TAKE ONE CAPSULE BY MOUTH EVERY DAY active Not Available Not Available No t Available vitamin B12 500 mcg-folic acid 400 mcg tablet Take 1 tablet by mouth once a day 2022 active Not Available Not Available Not Avai lable Suboxone 8 mg-2 mg [address] film [address] 2 strip under tongue once a day 08/04 completed Not Available Not Available Not Available Suboxone 2 mg-0.5 mg [address] l film Place 1/2 film under tongue single dose 12/12 completed using non-pres cribed to treat withdraw al Not Available Not Available Not Available Chantix Continuin g Month Box 1 mg tablet Take 1 tab by mouth twice daily 12/26 completed Not Available Not Available Not Available Suboxone 4 mg-1 mg sublingua l film take one SL daily (Jerzy Castañeda) 2020 active Not Available Not Available Not Avai lable vitamin E acetate 134 mg (200 unit) capsule mg by mouth once a day 180/mg 400IU active OTC Not Available Not Available No t Available Mavyret 100 mg-40 mg tablet 3 tabs po daily for 8 weeks 04/27 completed Not Available Not Available Not Available Vitals Date Recorded Body height Body mass index (BMI) Body weight Body temperature Oxygen saturation Oxygen saturation in Arterial blood by Pulse oximetry Respiratory rate Heart rate Systolic blood pressure Diastolic blood pressure Provider Name and Address Organization Details Last Updated DateTime 4 166.293 8 cm 25.3 kg/m2 80832.2 2 g 98.6 [degF] 100 % 100 % 18 /min 98 /min 102 mm[Hg] 62 mm[Hg] GUADALUPE SKY RN [facility] 16:39:48 Social History Question Answer Notes LastModified by Organizat ion Details LastModified Time Tobacco Smoking Status Current Every Day Smoker GIOVANA MOTTA MD [address], [place], [address], [facility] 12/12/2023 17:22:45 What Was The Date Of Your Most Recent Tobacco Screening? 12/12/2023 Information not available 12/12/2023 What Is Your Current Pack Years? [id number] rs Information not available 12/12/2023 How Much Tobacco Do You Smoke? 1 PPD Information not available 12/12/2023 Has Tobacco Cessation Counseling Been Provided? Yes Information not available 12/12/2023 Do You Or Have You Ever Used Any Other Forms Of Tobacco Or Nicotine? No Information not available 12/12/2023 Sex: Male Functional Status None recorded. Mental Status None recorded. Family History Relationship Description Onset Age of this Age Resolved Age Notes Maternal Grandmother Family history of Hypertension Maternal Grandmother Family history of diabetes mellitus type 1 Mother Family history of diabetes mellitus type 1 Notes:*Problem: Mother: Aliv e age 47 Father: Alive age 52 Sisters: none Brothers: none Children: 2 children born 2004, 2005 Family History of: Hypertension: maternal GM Hyperlipidemia: maternal GM Coronary heart disease: MGM Diabetes mellitus: no Colorectal cancer: no Prostate cancer: no Alcoholism: no MS: father, 2 paternal aunts Medical History No medical history recorded. Immunizations Vaccine Type Date Status Provider Name and Address Organization Details Recorded Time Hep A-Hep B 07/12/2018 completed Not Available [facility] 09/16/2023 06:11:23 COVID-19, mRNA, LNP-S, PF, 100 mcg/0.5mL dose or 50 mcg/0.25mL dose 09/21/2021 completed Not Available [facility], [facility] 09/16/2023 06:11:23 COVID-19 vaccine, vector-nr, rS-Ad26, PF, 0.5 mL 06/01/2021 completed Not Available [facility], [facility] 09/16/2023 06:11:24 Hep A, adult 04/27/2019 completed Not Available [facility], [facility] 09/16/2023 06:11:24 Past Encounters Encounter ID Performer Location Encounter Start Date Encounter Closed Date Diagnosis/Indication Diagnosis SNOMED-CT Code [id number] GIOVANA MOTTA MD [facility] [place] [place] [address] [address] 12/12/2023 16:21:47 02/10/2024 03:23:35 Attention deficit hyperactivity disorder 608480264 History of sepsis 501547 86639519 0 History of hepatitis B 162938804 History of hepatitis C 50871001060480 Hyperlipidemia 04614332 Prurigo nodularis 556759 00 Tobacco us e cessation education 762112054 Health Concerns Section Related Observation LastModified by Organization Detai ls LastModified Time None Recorded Concern Status LastModified by Organization Details LastModified Time None Recorded Advance Directives Directive None Recorded Payers Encounter Date Sequence Insurance Name Policy Number Policy Carrasco Covered Member ID Carrasco Member ID Guarantor Name 12/12/2023 1 [facility] (MEDICAID) Kevin Paulino [id number] Kevin Paulino Notes Date Note Type Note Provider Name and Address Organization Details Recorded Time 12/12/2023 text/html HPI Notes: Here for follow up on ADHD Feels like adderral helping with mood and focus. Doesn't work regularly in winter [place], working on the side. No cocaine or other stimulant use. Still using maybe 1mg of suboxone qhs because otehrwise he can't sleep. He also takes the ropinerole for restless legs. GIOVANA MOTTA MD [address], [place], [address], [facility] [facility]. 12/12/2023 17:44:14
--- OUTSIDE RECORDS SUMMARY | 2024-06-03 20:21 | XMS_ITS | Encounter Summary ---
Author Organization [facility] [address] [place] [id number] Care Team Providers Care Nail Professional Name Role Phone Chon Motta MD Primary Care Provider [phone] Reason for Referral * Physical Therapy (Routine) - Closed Specialty Diagnoses / Procedures Referred By Contac t Referred To Contact Diagnoses Trochanteric bursitis of both hips Chronic midline low back pain, unspecified whether sciatica present Ananth Farooq MD [facility] [place] [address] Referral ID Status Reason Start Date Expiration Date V isits Requested Visits Authorized [id number] Closed Evaluate and Treat 08/26/2022 02/22/2023 12 12 Encounter Details Date Type Department Care Team (Late st Contact Info) Description 08/26/2022 8:00 AM EDT Office Visit Rheumatology at [place] [phone] Ananth Farooq MD [facility] [place] [address] Trochanteric bursitis of both hips; Chronic midline low back pain, unspecified whether sciatica present Social History Tobacco Use Types Packs/Day Years Used Date Smoking Tobacco: Light Smoker Cigarettes 1 15 Cigars Smokeless Tobacco: Never Alcohol Use Standard Drinks/Week Comments Not Currently 0 (1 standard drink = 0.6 oz pur e alcohol) Sex and Gender Information Value Date Recorded Sex Assigned at Not on file Gender Identity Not on file Sexual Orientation Not on file documented as of this encounter Last Filed Vital Signs Vital Sign Reading Time Taken Comments Blood Pressure 125/80 08/26/2022 8:07 AM EDT Pulse 91 08/26/2022 8:07 AM EDT Temperature 37.3 ??C (99.1 ??F) 08/26/2022 8 :07 AM EDT Respiratory Rate - - Oxygen Saturation 100% 08/26/2022 8:0 7 AM EDT Inhaled Oxygen Concentration - - Weight 67.3 kg (148 lb 6.4 oz) 08/26/2022 8:07 AM EDT Height 165.1 cm (5' 5) 08/26/2022 8:07 AM EDT patient reported Body Mass Index 24.7 08/26/2022 8:07 AM EDT documented in this encounter Patient Instructions * Attachments The following attachments cannot be sent through Care Everywhere. * Trochanteric Bursitis: Exercises (Pakistani) documented in this encounter Progress Notes * Ananth Farooq MD - 08/26/2022 8:00 AM EDT Rheumatology Outpatient Follow Up Note PCP: Chon Motta MD Kevin Paulino is a 47 y.o. 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 Rheum History: # Polyarthralgia, likely mechanical cause - last seen 05/27/2022 with polyarthralgia: hips, knees, ankles, shoulders, wrists, mid and lower back pain, worse at the end of the day -CBC, CMP, complements, cryoglobulins, Lyme, HCV, HBV, UA negative 04/09/2022 HLAB27: neg RF <10 ?? 03/18/2019 REGI neg Sm Muscle Ab neg HIV neg Ceruloplasmin 30 -X-ray of the hands normal Interval History: - he states that he still has joint pain, worse at the end of the day - complains of lateral B/L hip pain, worse with activities - ibuprofen helps with the pain - reports he lifted something heavy around 2 mo ago when he started having lower back pain radiating down to the right leg which is now improving - states he recently stopped suboxone and is having restlessness in his legs and shoulders - denies any other recent illnesses ROS (positives in bold): Gen: no fevers, no chills, no night sweats Pulm: no SOB CV: no CP Abd: no abd pain, no nausea, no vomiting, no diarrhea MSK: see HPI Meds and Allergies: Reviewed in eDH Physical exam: Patient Vitals for the past 24 hrs: Temp Pulse BP SpO2 08/26/22 0807 37.3 ??C (99.1 ??F) 91 125/80 100 % Gen: well appearing, alert and oriented x 3, nad HEENT: NCAT, EOMI, moist mucous membranes, no oral ulcers, normal sclerae Lymph: no cervical LAD Heart: regular rate, no murmurs, rubs or gallops Lungs: clear to auscultation b/l Abd: soft, +bs, NT/ND Skin: warm and dry, hypopigmented areas on face, trunk and upper extremities, slightly erythematouson sun exposed areas - vitiligo, rash + on b/l thighs previously not present today Nails: no nail pitting Joints: Shoulders: FROM, non-tender to palpation Elbows:FROM Wrists: FROM, no swelling, non-tender Hands: No synovitis, no MCP compression tenderness, full claw and fist Hips: FROM, tenderness + bilaterally over greater trochanter (R>L) Knees: FROM, no effusion, no tenderness Ankles: FROM, non-tender, no effusion Feet: no MTP compression tenderness, no swelling in MTP/DIP/PIPs Labs/Studies: Reviewed. Current Immunizations Name Date TDAP 03/26/2014 Assessment/Plan: Kevin Paulino is a 47 y.o. male with PMH of vitiligo, IVDU (cocaine), Hep C s/p completed treatment, Acute liver failure 2/2 acute hepatitis B infection, DRESS with vancomycin, bacteremia (s/p treatment) who presents today for continuing management of polyathralgia. 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 Also complains of B/L lateral hip pain. No e/o active inflammation of joints on exam, he does have B/L trochanteric tenderness though alongwith extensive vitiligo with mildly erythematous areas in sun exposed regions. Workup sent last visit including CBC, CMP, complements, cryoglobulins, Lyme, HCV, HBV, UAare negative. The likely etiology of his joint pain is mechanical from overuse and trochanteric pain syndrome. Recommend ibuprofen as needed for joint pain. Avoid physical activities as much as possible that worsen the pain especially hip pain (although difficult because of his job as a piano case maker). I gave him a copy of exercises to be done for trochanteric pain syndrome. Will also refer him to PT for the same and lower back pain. He also has extensive vitiligo with mildly erythematous areas in sun exposed regions. Recommended sun protection including uv clothing and sunscreen. He has an appointment with derm in October. Also complains of restlessness of his shoulders and legs since stopping suboxone. Recommend following up with PCP regarding that. Plan: - Recommend ibuprofen as needed for joint pain. - Avoid physical activities as much as possible that worsen the pain especially hip pain (although difficult because of his job as a piano case maker). - Recommend exercises for trochanteric pain syndrome (copy of the same given). - Will refer him to PT for trochanteric pain syndrome and lower back pain. - Recommended sun protection including uv clothing and sunscreen. - follow up with derm in October. - Recommend following up with PCP regarding restlessness of his shoulders and legs since stoppingsuboxone and for continued management of his joint pain which is likely mechanical. Follow up as needed Patient was discussed with Dr. Trisha Farooq MD Rheumatology Fellow Pager: [phone] * Reagan Rico MD - 08/26/2022 8:00 AM EDT Rheumatology Attending Attestation Note I have seen and examined the patient, reviewed the above history, exam, and assessment. I agree with the details as written. The assessment and plan was formulated with the fellow, Ananth Farooq MD in discussion with me and I agree with the details as written with possible revisions below. Pertinent History: Kevin Paulino is a 47 y.o. male history of vitiligo hep C status post completetreatment history of hepatitis B dressed with vancomycin bacteremia, with improvement in his polyarthralgia, with trochanteric syndrome recommend NSAIDs PT and at some point potentially trochanteric injection. Of note he did describe some paresthesia or prickly feeling on his skin followed by Derm.Noted to have erythremia and sites of where he would normally be covered by shirt Even though the shirts he wears UV shannan grade he ay need sunblock aswell.. ADvisded to follow up with dermatology and or message them since he may be at mpre risk. Remainder of exam within normal limits exam of erythema skin and joint exam showed no synovitis Reagan Rico MD documented in this encounter Plan of Treatment Scheduled Referrals Name Type Priority Associated Diagnoses Orde r Schedule Referral to Physical Therapy Outpatient Referral Routine Trochanteric bursitis of both hips Chronic midline low back pain, unspecified whether sciatica present Ordered: 08/26/2022 documented as of this encounter Visit Diagnoses Diagnosis Trochanteric bursitis of both hips Enthesopathy of hip region Chronic midline low back pain, unspecified whether sciatica present documented in this encounter Care Teams Nail Professional Relationship Specialty Start Date End Date Chon Motta MD [address] [place] [address] PCP - General Family Medicine 02/11/21 documented as of this encounter
--- OUTSIDE RECORDS SUMMARY | 2024-06-03 20:21 | XMS_ITS | Encounter Summary ---
Author Organization [facility] [place] [address] Care Team Providers Care Barge Master Name Role Phone Chon Motta MD Primary Care Provider [phone] Encounter Details Date Type Department Care Team (Latest Contact Info) Description 10/21/2022 Travel Social History Tobacco Use Types Packs/Day Years [...] on file documented as of this encounter Plan of Treatment Not on file documented as of this encounter Visit Diagnoses Not on filedocumented in this encounter Care Teams Barge Master Relationship Specialty Start Date End Date Chon Motta MD [address] [place] [address] PCP - General Family Medicine 02/11/21 documented as of this encounter
--- OUTSIDE RECORDS SUMMARY | 2024-06-03 20:21 | XMS_ITS | Encounter Summary ---
Author Organization [facility] Address [facility] [place] [address] Care Team Providers Care Experimental Physicist Name Role Phone Chon Motta MD Primary Care Provider [phone] Encounter Details Date Type Department Care Team (Late st Contact Info) Description 11/30/2022 Telephone Psychiatry [place] [phone] Luis Kulkarni MD [facility] [place] [address] Social History Tobacco Use Types Packs/Day Years [...] on file documented as of this encounter Miscellaneous Notes * Telephone Encounter - Angelica Ward - 11/30/2022 9:37 AM EST I called Kevin Paulino call and was unable to reach them at the call back number provided. I leftmy number to return my call [phone] (Dr. Mederos) or to send a message via My . *Schedule from Referral. Letter sent. Referral closed. Will reopen when patient reaches out. documented in this encounter Plan of Treatment Not on file documented as of this encounter Visit Diagnoses Not on filedocumented in this encounter Care Teams Experimental Physicist Relationship Specialty Start Date End Date Chon Motta MD [address] [place] [address] PCP - General Family Medicine 02/11/21 documented as of this encounter
--- OUTSIDE RECORDS SUMMARY | 2024-06-03 20:21 | XMS_ITS | Clinical Summary ---
Author Organization [facility] Address [facility] [place] [address] Care Team Providers Care Transition Mgr Name Role Phone Chon Motta MD Primary Care Provider [phone] Allergies Active Allergy Reactions Criticality Noted Date Comments Gabapentin Low 03/18/2019 Itchiness reported, unknown if anaphylaxis Vancomycin High 03/18/2019 DRESS syndrome in 2018 Medications Medication Sig Dispensed Refills Start Date End Date Status ibuprofen (ADVIL;MOTRIN) 400 mg Tablet Take 1 tablet by mouth every 6 hours as needed for Pain. 30 tablet 12 03/22/2019 Active ketoconazole (NIZORAL) 2 % Cream Apply topically daily. 60 g 02/11/2021 Active Additional Information Patient not taking.Reported on 08/26/2022 FLUoxetine (PROzac) 20 mg Capsule Take 40 mg by mouth daily. 02/25/2021 Active Suboxone 8-[address] 2 Film under the tongue daily. 03/04/2021 Active triamcinolone (KENALOG) 0.1 % Ointment Apply topically 2 times daily. 30 g 03/11/2021 Active Additional Information Patient not taking.Reported on 05/27/2022 erythromycin with ethanoL (EMGEL) 2 % GelIndications:Other eczema,Actinic keratoses Apply topically daily. 30 g 04/08/2021 Active Additional Information Patient not taking.Reported on 05/27/2022 mupirocin (BACTROBAN) 2 % OintmentIndications: Other eczema,Actinic keratoses Apply topically 3 times daily. 22 g 04/08/2021 Active Additional Information Patient not taking.Reported on 05/27/2022 dextroamphetamine-am phetamine XR (Adderall XR) 20 mg Capsule, Sust. Release 24 hr Take 40 mg by mouth daily. 05/03/2022 Active betamethasone dipropionate (Diprolene) 0.05 % Cream APPLY A SMALL AMOUNT TO AFFECTED AREA TWICE A DAY NEEDED TO THINK SKIN ON HANDS 03/09/2022 Active sildenafiL (VIAGRA) 100 mg Tablet TAKE 1/2 TABLET BY MOUTH ONCE A DAY NEEDED PRIOR TO SEXUAL INTERCOURSE 04/01/2022 Active diclofenac (Voltaren) 1 % Gel Apply 2 g topically 4 times daily. 100 g 3 05/27/2022 Active dextroamphetamine-am phetamine (ADDERALL XR) 30 mg Capsule, Sust. Release 24 hr Take 30 mg by mouth daily. 08/06/2022 Active dextroamphetamine-am phetamine (ADDERALL XR) 10 mg Capsule, Sust. Release 24 hr TAKE ONE CAPSULE BY MOUTH EVERY DAY WITH 30 MG TOTAL 40 MG DAILY 08/06/2022 Active clobetasoL (Temovate) 0.05 % OintmentIndications: Prurigo nodularis Apply twice daily to affected areas on the arms, hands and legs for 14 days, then take one week off, and repeat as needed 30 g 3 10/21/2022 Active acetylcysteine 600 mg TabletIndications:Pr urigo nodularis Take 1 tablet by mouth daily. 30 tablet 3 10/21/2022 Active Active Problems Problem Noted Date Diagnosed Date Drug-induced erythroderma 02/11/2021 Elevated bilirubin 02/11/2021 Fever 02/11/2021 Headache 02/11/2021 Hepatitis C antibody test positive 02/11/2021 Rectal lesion 02/11/2021 Tobacco abuse 02/11/2021 Vitiligo 04/11/2019 Acute hepatitis B 04/11/2019 History of alcohol abuse 04/11/2019 History of bacteremia 04/11/2019 Crack cocaine use 04/11/2019 Chronic hepatitis C without hepatic coma 019 DRESS syndrome 03/18/2019 Overview (03/18/2019): Vancomycin History of intravenous drug abuse 03/18/2019 Resolved Problems Problem Noted Date Diagnosed Date Resolved Date Sepsis 03/18/2019 04/11/2019 IVDU (intravenous drug user) 03/18/2019 04/11/2019 Bacteremia 03/18/2019 03/18/2019 Immunizations Name Administration Dates Next Due Tdap 03/26/2014 Family History Medical History Relation Comments Multiple Sclerosis Mother Relation Status Comments Mother Social History Tobacco Use Types Packs/Day Years Used Date Smoking Tobacco: Light Smoker Cigarettes 1 15 Cigars Smokeless Tobacco: Never Tobacco Cessation:Ready to Q uit: No; Counseling Given: Yes Alcohol Use Standard Drinks/Week Comments Not Currently 0 (1 standard drink = 0.6 oz pur e alcohol) Sex and Gender Information Value Date Recorded Sex Assigned at Not on file Gender Identity Not on file Sexual Orientation Not on file Last Filed Vital Signs Vital Sign Reading Time Taken Comments Blood Pressure 125/80 08/26/2022 8:07 AM EDT Pulse 91 08/26/2022 8:07 AM EDT Temperature 37.3 ??C (99.1 ??F) 08/26/2022 8 :07 AM EDT Respiratory Rate 20 05/27/2022 9:20 AM EDT Oxygen Saturation 100% 08/26/2022 8:0 7 AM EDT Inhaled Oxygen Concentration - - Weight 67.3 kg (148 lb 6.4 oz) 08/26/2022 8:07 AM EDT Height 165.1 cm (5' 5) 08/26/2022 8:07 AM EDT patient reported Body Mass Index 24.7 08/26/2022 8:07 AM EDT Plan of Treatment Health Maintenance Due Date Last Done Comments CT Colonography 1977 Colonoscopy 1977 Colorectal Cancer Screening 1977 FIT DNA 1977 FIT 1977 Sigmoidoscopy (10 year) with FIT yearly 1977 Sigmoidoscopy 1977 Pneumococcal Vaccine: At-Ris k 5-64yrs (1 of 2 - PCV) 1983 Lipid Screening 1995 Covid-19 Vaccine ( - 2022-2 4 season) 2023 Tetanus vaccine 03/26/2024 03/26/2014 Influenza (Flu) vaccine (1 o f 1 - Influenza standard series) 07/08/2024 Tdap adult Completed 03/26/2014 HIV screen Completed 03/18/2019 Diabetes Screening (HgbA1C o r Glucose) Discontinued 05/27/2022, 04/10/2019, 03/22/2019, Additional history exists Procedures Procedure Name Priority Date/Time Associated Diagnosis Comments COMPREHENSIVE METABOLIC PANEL (NON-FASTING) Routine 05/27/2022 12:15 PM EDT Polyarthralgia HIV SCREEN, 4TH GENERATION ([facility]/CGP/APD/NLH) Routine 03/18/2019 11:00 PM EDT from Last 3 Months or Most Recently Relevant to Health Maintenance Results * Comprehensive metabolic panel (non-fasting) (05/27/2022 12:15 PM EDT) Glucose Lvl 131 65 - 199 mg/dL [facility] Comment:Diabetes: >=200 mg/d L plus symptoms BUN 10 10 - 20 mg/dL [facility] Creatinine 0.82 0.80 - 1.50 mg/dL [facility] Sodium 137 135 - 145 mmol/L [facility] Potassium 3.7 3.5 - 5.0 mmol/L [facility] Comment: Please note: ??Patients with WBC >100,000 may have falsely elevated Potassium levels. ??For accurate Potassium quantification in these patients send serum separator tube (gold top) for subsequent determinations. ??Contact the Clinical Chemistry Laboratory if there are any questions. Chloride 103 98 - 107 mmol/L [facility] CO2 24 22 - 31 mmol/L [facility] Anion Gap 10 5 - 15 mmol/L [facility] Calcium 9.5 8.5 - 10.5 mg/dL [facility] Total Protein 7.4 6.1 - 8.0 g/dL [facility] Albumin 4.7 3.2 - 5.2 g/dL [facility] AST 18 0 - 39 unit/L [facility] ALT 13 0 - 55 unit/L [facility] Alk Phos 110 40 - 130 unit/L [facility] Total Bilirubin 0.4 0.2 - 1.3 mg/dL [facility] Estimated GFR 110 >=60 mL/min/1. 73 m?? [facility] Comment: This patient's estimated GFR was calculated using the 2020 CKD-EPI equation. The estimated GFR can vary from the measured GFR by up to 30% in the absence of rapidly changing kidney function. Assessment of the estimated GFR is not appropriate when creatinine concentrations are rapidly changing. For clinical situations in which a more precise estimate of GFR is necessary, consider alternative methods of GFR estimation such as a 24-hour urine creatinine clearance. Assignment of CKD stage 1-5 for patients with an eGFR near the transition point between stages may be based on clinical assessment of muscle mass and symptoms in addition to eGFR. Blood 05/27/2022 12:1 5 PM EDT 05/27/2022 12:27 PM EDT Narrative Resulting Agency Comment Spec In Lab Tresa Lazcano DO CHEMISTRY ORDERABL ES Performing Organization Address City/[facility]/ZIP Co de Phone Number [facility] [place] [address] * HIV Screen, 4th Generation ([facility]/CGP) (03/18/2019 11:00 PM EDT) HIV-1/2 Ab and Ag Negative Negative [facility] Comment: This 4th Generation HIV test screens for the presence of the HIV-1 p24 antigen as well as antibodies reactive against HIV-1 and HIV-2. A negative screen does not rule out an acute HIV infection. If acute HIV infection is suspected, testing should be repeated in 2 - 3 weeks or HIV nucleic acid testing performed. Blood specimen (specimen) 03/18/2019 11:00 PM EDT 03/18/2019 11:16 PM EDT Narrative Resulting Agency Comment Spec In Lab Jimenez Pérez DO IMMUNOLOGY ORDERABLE S Performing Organization Address City/[facility]/ZIP Co de Phone Number [facility] [place] [address] from Last 3 Months or Most Recently Relevant to Health Maintenance Advance Directives Documents on File Type Date Recorded Patient Link Machine Operator Expl anation Advance Directives and Livin g Will 03/22/2019 11:19 AM 03/21/2019 * Full Code (Latest Code Status on File) Date Activated Date Inactivated Comments 03/18/2019 10:25 PM 03/22/2019 2:00 PM Question Answer Comments Does patient have capacity to make decision: Yes Care Teams Transition Mgr Relationship Specialty Start Date End Date Chon Motta MD [facility] [place] [phone] PCP - General Family Medicine 02/11/21
--- OUTSIDE RECORDS SUMMARY | 2024-06-03 20:21 | XMS_ITS | Encounter Summary ---
Author Organization [facility] Address [facility] [place] [address] Care Team Providers Care Reacher Name Role Phone Chon Motta MD Primary Care Provider [phone] Reason for Referral * Psychiatric (Routine) - Closed Specialty Diagnoses / Procedures Referred By Yogi pacheco Referred To Contact Dermatology Diagnoses Prurigo nodularis Stephanie Gallegos MD [facility] [address] [place] [address] Luis Kulkarni MD [facility] [place] [address] Referral ID Status Reason Start Date Expiration Date V isits Requested Visits Authorized [id number] Closed Consult, Test & Treat 10/21/2022 10/21/2023 1 1 Reason for Visit * Reason Comments Rash Encounter Details Date Type Department Care Team (Late st Contact Info) Description 10/21/2022 2:20 PM EST Office Visit Dermatology at [facility] [address] [place] [phone] Stephanie Gallegos MD [facility] [address] [place] [address] Prurigo nodularis Social History Tobacco Use Types Packs/Day Years [...] on file documented as of this encounter Progress Notes * Stephanie Gallegos - 10/21/2022 2:20 PM EST Images from the original note were not included. DEPARTMENT OF DERMATOLOGY Medical Dermatology Clinic Provider: Stephanie Gallegos MD Patient's preferred name Kevin Preferred contact method for results [x]?Phone []?myD-H []?Letter Detailed phone message OK? ?? Are there any other people with whom we may discuss your care? 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 Pre-Procedure Screening Details Allergy to lidocaine, epinephrine, Dermabond, chlorhexidine, or adhesives N Bleeding disorder or blood thinners N Implanted devices (Pacemaker, defibrillator, deep brain stimulator, cochlear implant) N History of Present Illness: Kevin Paulino is a 47 y.o. Patient returns to clinic today for excoriated lesions on bilateral arms, hands and lower legs that he picks at and can't stop. -he doesn't know of anything that seems to help him with this and currently he uses mushers bag balm to coat these areas which calms the urge to pick but doesn't fully resolve urges. Last visit at Dermatology: 04/09/2022 Last visit with this provider: Visit date not found Medications: Reviewed in eD-H Allergies: Reviewed in eD-H Skin Examination: Focused skin examination of the bilateral arms and legs was normal with the exception of the findings below. Assessment/Plan #. Prurigo Nodularis with neurotic excoriations -hyperkeratotic papules scattered on the bilateral arms, hands and legs with a hx of chronic itching - The lesions appear secondary to repeated trauma, such as rubbing or scratching at a site. I reviewed the importance of resisting the urge to manipulate the lesions to hasten their resolution. - Joint decision to proceed with topical steroids and referral to derm psych -Patient endorses picking at areas on skin Plan: Rx: clobetasol 0.05% ointment: Apply twice daily to affected areas on the arms, hands and legs for 14 days, then take one week off, and repeat as needed - Discussed risks of prolonged topical corticosteroid use including atrophy, striae, hypopigmentation, tachyphylaxis. - Start OTC: n-acetylcysteine (NAC) 600 mg: Take one tablet by mouth daily - referral to Derm Psych Clinic w/ Dr. Kulkarni - in basket message sent to Angelica for scheduling Other: ??? N/A RTC: PRN for derm psych [x]Note routed to private secretary []Recall placed in scheduling system []Appointment scheduled at checkout I performed the above scribed service and agree with the accuracy of the documentation in this encounter. Reviewed and signed by: Stephanie Gallegos MD [facility] Patient seen and evaluated with staff plug machine operator: Abraham Helm MD [facility] * Abraham Helm MD - 10/21/2022 2:20 PM EST I directly supervised the Dermatology resident during this office visit. The resident presented thehistory and physical exam to me. I then saw and examined this patient with the resident. We reviewed the history and pertinent details and I confirmed the physical findings. I agree with the details of the history and physical exam as documented in the resident's note. ABRAHAM EHLM MD Staff Physician documented in this encounter Plan of Treatment Scheduled Referrals Name Type Priority Associated Diagnoses Order Schedule Referral to Psychiatry Outpatient Referral Routine Prurigo nodularis Ordered: 10/21/2022 documented as of this encounter Visit Diagnoses Diagnosis Prurigo nodularis Lichenification and lichen simplex chronicus documented in this encounter Care Teams Reacher Relationship Specialty Start Date End Date Chon Motta MD [address] [place] [address] PCP - General Family Medicine 02/11/21 documented as of this encounter
--- OUTSIDE RECORDS SUMMARY | 2024-06-03 20:22 | XMS_ITS | Encounter Summary ---
Author Organization [facility] [place] [address] Care Team Providers Care Public Health Physician Name Role Phone Chon Motta MD Primary Care Provider [phone] Encounter Details Date Type Department Care Team ([facility] st Contact Info) Description 05/06/2021 11:20 AM EDT Office Visit Dermatology at [address] [phone] Alana Allen MD [address] [place] [id number] Neoplasm of uncertain behavior Social History Tobacco Use Types Packs/Day Years [...] as of this encounter Progress Notes * Alana Allen MD - 05/06/2021 11:20 AM EDT Images from the original note were not included. DEPARTMENT OF DERMATOLOGY Medical Dermatology Clinic Provider: Alana Allen MD Patient's preferred name Kevin Preferred contact method for results []myDH []Letter [x]Phone: PAST MEDICAL HISTORY If no, type N. If yes, type date, location, treatment Melanoma n Dysplastic nevi n SCC n BCC n AKs n UV Exposure & Protection N Other relevant past medical history (i.e. 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 year old. Patient returns to clinic today for evaluation of hand and foot rash that has not responded to topical steroids, erythromycin gel etc. Last visit at [facility] Derm: 04/08/2021 Last visit with this provider: 04/08/2021 Medications: Reviewed in eD-H Allergies: Reviewed in eD-H Skin Examination: Focused skin examination of the hands and feet was normal with the exception of the findings below Assessment/Plan 1. Tinea vs verruca vs eczema vs psoriasis vs other syndromic? Brown hyperkeratotic verrucous plaques on palms, soles, PIP joints and subungual debris with hyperkeratosis on all finger and toes nails which have failed treated with topical steroids and erythromycin for possible pitted keratolysis BIOPSY PROCEDURE NOTE LOCATION: left palm PUNCH BIOPSY Bx Size: 4 mm After swabbing the area with isopropyl alcohol, the area was anesthetized with Lidocaine with 1:100,000 epinephrine and a punch biopsy to the level of the subcutis was performed. Pressure held for hemostasis. Wound was dressed with Vaseline and a dressing. There were no complications and the patient tolerated the procedure well. Post-procedure expectations, wound care, and activity restrictions were reviewed. The patient was told to expect results by the end of 2 weeks, and to call if they have not receivedthe results by that time. Photo was taken and charted with patient's verbal consent. RTC: 4 weeks Alana Allen MD Dermatology [facility] documented in this encounter Plan of Treatment Not on file documented as of this encounter Procedures Procedure Name Priority Date/Time Associated Diagnosis Comments SPECIMEN TO PATHOLOGY Routine 05/06/2021 12:03 PM EDT Neoplasm of uncertain behavior documented in this encounter Results * Specimen to Pathology (05/06/2021 12:03 PM EDT) AP Specimen 05/06/2021 12:0 3 PM EDT 05/06/2021 12:03 PM EDT Narrative [facility] - 05/06/2021 12:03 PM EDT Specimen requisition ordered. 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
--- OUTSIDE RECORDS SUMMARY | 2024-06-03 20:22 | XMS_ITS | Encounter Summary ---
Author Organization [facility] [address] Care Team Providers Care Fitting Room Attendant Name Role Phone Chon Motta MD Primary Care Provider [phone] Reason for Visit * Reason Comments Actinic Keratosis face, feet, hand, sc alp Encounter Details Date Type Department Care Team ([facility] st Contact Info) Description 03/11/2021 11:00 AM EDT Office Visit Dermatology at [address] [place] [phone] Alana Allen MD [address] [place] [address] Actinic keratoses; Other eczema; Verruca; Follicular cyst of skin Social History Tobacco Use Types Packs/Day Years [...] Progress Notes * Alana Allen MD - 03/11/2021 11:00 AM EDT DERMATOLOGY - ESTABLISHED PATIENT FOLLOW-UP Date of service: 03/11/2021 Kevin Paulino : 1975, 45 y.o. CC: follow up AK and tinea HPI: Kevin Paulino is a 45 y.o. male last seen by me on 02/11/2021. Mr. Paulino returns today for follow up AK and tinea. Believes the AK has resolved on nose but thatother shave appeared since last visit. Does not think keto cream has improved rash on feet and hands. Also with painful bump on left jawline Relevant Skin History: - Okay to leave detailed message with results? yes Skin Cancer History Social History: - n/a Medications: Current Outpatient Medications Medication Sig Dispense Refill ??? ketoconazole (NIZORAL) 2 % Cream Apply topically daily. 60 g 0 ??? ibuprofen (ADVIL;MOTRIN) 400 mg Tablet Take 1 tablet by mouth every 6 hours as needed for Pain.(Patient not taking: Reported on 02/11/2021) 30 tablet 12 ??? traZODone (DESYREL) 50 mg Tablet Take 50 mg by mouth nightly. No current facility-administered medications for this visit. Allergies: Allergies Allergen Reactions ??? Vancomycin DRESS syndrome in 2018 ??? Gabapentin Itchiness reported, unknown if anaphylaxis Review of Systems: - General: Feels well. - Skin: No other skin concerns. Examination: - Constitutional: Patient was alert, well-appearing and in no noticeable distress. - Skin: Skin examination of the hands feet and face Diagnosis/Skin findings/Assessment/Plan: 1. Actinic Keratosis [Discrete gritty, rough, scaly pink papules located on face] Reviewed with patient the precancerous nature of these lesions and the possibility for progression to SCC-type skin cancers if left untreated or recurrent after treatment - given the association with chronic sun exposure and solar damage, advised the patient on increased vigilance with sun protection Procedure Note Cryotherapy Total number of treated lesions: 3 Location: right forehead, nasal dorsum and left jawline A diagnosis of actinic keratosis was discussed with the patient and the need for cryotherapy was reviewed. After the risks and benefits of the procedure were reviewed with the patient including but not limited to pain, blistering, bleeding, infection, scar, hypopigmentation, cosmetic defect, recurrence, and damage to underlying structures, and despite these risks, the patient wished to proceed. Lesions were treated with liquid nitrogen using the cryospray method technique with 2-3 mm garcia margins and with 2 freeze-thaw cycles. The patient tolerated the procedure well without complications. Local care discussed and the patient was sent home with a wound care sheet. All questions were answered and instructions were given to return to the clinic if the lesions fail to respond to today's treatment or if new lesions arise. Today is treatment number 2 2. Hand dermatitis vs numerous viral verruca vs PPK on left hand and foot with onychomycosis vs plantar warts -hyperkeratotic brown/orange plaques with discrete verrucous endophytic papules along creases of palms and subungual on 2 finger nails and toe nails. -unclear picture today -will stop keto cream -start TAC cream BID for two weeks, once scale has improved will re-evaluate -discussed topical therapy for diffuse verruca imiquimod vs mediplast 3. Follicular cyst on left jaw-line -indurated subcutaneous nodule -discussed risks and benefits and decided to proceed with ILK. -ILK 2.5 injected a total of 0.1 cc patient tolerated well. RTC: 3-4 weeks Note initiated by Alana Allen MD. Alana Allen MD Gas Golf Cart Repairer Department of Dermatology [facility] documented in this encounter Plan of Treatment Not on file documented as of this encounter Visit Diagnoses Diagnosis Actinic keratoses Actinic keratosis Other eczema Verruca Viral warts, unspecified Follicular cyst of skin Sebaceous cyst documented in this encounter Care Teams Fitting Room Attendant Relationship Specialty Start Date End Date Chon Motta MD [address] [place] [address] PCP - General Family Medicine 02/11/21 documented as of this encounter
--- OUTSIDE RECORDS SUMMARY | 2024-06-03 20:22 | XMS_ITS | Encounter Summary ---
Author Organization [facility] [place] [place] [address] Care Team Providers Care Director Of Vocational Guidance Name Role Phone Aileen Macias APRN Primary Care Provider [phone] Reason for Visit * Auth/Cert Specialty Diagnoses / Procedures Referred By Yogi t Referred To Contact Diagnoses Sepsis FEVER, JAUNDICE, POSSIBLE CHOANGITIS Procedures EMERGENCY IPI Referral ID Status Reason Start Date Expiration Date Visits Re quested Visits Authorized [id number] 1 1 Encounter Details Date Type Department Care Team (Latest Contact Info) Description 03/18/2019 9:42 PM EDT - 03/22/2019 11:55 AM EDT Hospital Encounter 1 [place] [id number] Jimenez [place] [address] [place] [address] Franklin Andrade III, [place] [address] Sepsis, due to unspecified organism; IVDU (intravenous drug user) Discharge Disposition: Home Social History Tobacco Use Types Packs/Day Years Used Date Smoking Tobacco: Every Day Cigarettes 1 15 Smokeless Tobacco: Never Tobacco Cessation:Ready to Q [...] Sign Reading Time Taken Comments Blood Pressure 122/67 03/22/2019 11:46 AM EDT Pulse 89 03/22/2019 11:46 AM EDT Temperature 36.5 ??C (97.7 ??F) 03/22/2019 11:46 AM E DT Respiratory Rate 14 03/22/2019 11:46 AM EDT Oxygen Saturation 98% 03/22/2019 11:46 AM EDT Inhaled Oxygen Concentration - - Weight 58.9 kg (129 lb 14 oz) 03/22/2019 5:00 AM EDT Height 165.1 cm (5' 5) 03/18/2019 9:46 PM EDT Body Mass Index 21.61 03/18/2019 9:46 PM EDT documented in this encounter Discharge Summaries * Kobi Self MD - 03/22/2019 10:36 AM EDT Discharge Summary Patient Name: Gabriel Storm Patient Age: 43 y.o. Language: Montenegrin Race: White Ethnicity: Not nor Admit date: 03/18/2019 Discharge date and time: 03/22/2019 Attending Physician: No att. providers found Discharge Physician: Franklin Andrade III, MD Follow-up Recommendations for Providers: Mr. Storm is a 43 year old man with a history of IVDU, hepatitis C (on treatment), and DRESS (reaction to vancomycin) who presented to us with acute liver failure 2/2 acute hepatitis B infection. - Please obtain CBC and CMP at the next clinic visit (in 2 weeks) - Please ensure compliance with tenofovir and Mavyret as an outpatient - Patient was started on Chantix on discharge per his request. He had good response in the past without side effects. Please follow up on his smoking cessation. Inpatient Provider Contact Information: For questions regarding this document or issues relating to this hospitalization on the Medical Service, please contact your inpatient physician through the [facility] Reiki Practitioner . Issues afterhours and on weekends will be handled by the Hospitalist staff on-call. Discharge Diagnoses (Hospital Problems) and Secondary Diagnoses (Chronic Problems): Active Hospital Problems Diagnosis ??? Sepsis ??? Chronic hepatitis C without hepatic coma ??? DRESS syndrome ??? IVDU (intravenous drug user) ??? History of alcohol use Resolved Hospital Problems Diagnosis Date Resolved ??? Bacteremia 03/18/2019 There are no active non-hospital problems to display for this patient. Operations/Major Procedures: None History of Presentation: Gabriel Storm is a 43 y.o. male with a PMHX significant for hx of active IVDU (cocaine), Hep C (on mavyret), hx of DRESS with reaction to vancomycin who presents to [facility] with a 2-3 day history of fevers and abdominal pain. ?? 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 He notes that he developed mild, nagging abdominal pain in his RUQ/Epigastrium Th night, but did not think much of it. He took tylenol as needed to dull the pain.Looking back, he has also noted anorexia around this time with decreased appetite, but no nausea orvomiting. Patient then rapidly developed fevers/chills/rigors on Tuesday shortly after waking up. Headditionally was fatigued and malaised for much of the day and also had dizziness and lightheadedness as well. Furthermore, he endorses a mild holo-cranial headache at this time. No SOB or chest pain. No palpitations. No cough and no urinary symptoms. Due to his multiple concerns, he presented to [facility] ED. ?? Patient states that he last used cocaine a couple of weeks ago and smokes 0.5- 1ppd of tobacco andsmokes marijuana as well. He takes tylenol sparingly and has ramped up usage in the past week due to abdominal pain (2-3 doses a day). He last drank alcohol heavily last summer and does not drink at all recently (reticent to specify amount at this point). 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 ?? 43yo ED at [facility], h/o IVDU, Hep C. h/o DRESS with vancomycin. fever 104, jaundice, dilated gallbladder, AST/ALT 4000, Bili 6. CT a/p - enlarged GB, dilated ducts, cholecystic fluids. normal LFTs 1 month ago. lactate 2.2 VSS. 104, HR 120, resp status. Coags pending - WBC 12 4% bands. Cefepime and dapto. 3L IVF. oliguric. BUN/Cr 10/0.9. Accepted ISCU. ?? OSH Course: Vitals: 39.6C, HR 100, BP 96/62, RR 20, 98% on RA Pertinent labs: CBC: 5.28/15.9/181 BMP: Cr 0.95, AG 11, lactate 2.2 LFTs: Alb 3.5, Tbili 5.9, AST 3475, ALT 5028, CRP 7.22, ESR 34 ?? CT below ?? OSH Interventions Cefepime Daptomycin 2L IVF Tylenol 650mg x1 Hospital Course: # Acute liver failure 2/2 acute hepatitis B infection Mr. Storm presented with RUQ/epigastric pain, fever, chills and anorexia. He was found to have transaminitis in the thousands (ALT 4000, AST 3300, ALP 276) compared to normal LFTs a month prior. His INR was 1.6 on initial presentation. He was started don NAC protocol on admission. GI was consulted. Initial differentials for his acute liver failure included tylenol toxicity, acute viral hepatitis, Budd-Chiari, autoimmune hepatitis, Hank's disease, and less likely shock liver given the absence of hypotension. CT performed at the [facility] hospital was read again at [facility] and it did not show any signs of Budd-chiari or biliary ductal dilation. Tylenol level, REGI, smooth muscle Ab, ceruloplasmin, EBV, and CMV were negative. HSV1 and 2 were positive for IgG. Hep A indeterminate. Hep B serologies came back with core Ab positive, surface Ag positive, surface Ab negative suggesting acute hep B infection. HCV viral load was negative. He was initially started on acyclovir for possible HSV related hepatitis but it was discontinued on hep B serologies came back. Per GI recommendation, he was starte d on tenofovir 300mg QD for acute hep B infection. He was also continued on home Mavyret. During the admission, LFTs were consistently trending downwards AST 3050-->2145-->1406 and ALT 4010-->3470-->2828. He has shown clinical improvement with each day during his admission. # Fever His fever and clinical presentation of sepsis were thought to be due to acute hep B infection. Bothblood cultures from [facility] and [facility] are showing no growth to date (final cultures pending). He was initially started on pip/tazo and daptomycin on admission for broad empiric antibiotic coverage but these were discontinued on HD1 when viral hepatitis serologies resulted. TTE was performed to look forvegetations and it was unremarkable. # IV drug use history Patient mentioned a desire to quit smoking while admitted. Out behavioral intervention team was consulted and met with the patient. They reported no signs of alcohol withdrawal and no acute safety concerns. He was provided with additional substance use treatment and relapse prevention resources, which were included in his discharge instructions. # Social issues (per SW note 03/22/19) Patient reports he will be staying with his [facility] for now. He reports his ex-/friend offered for him to return to her home temporarily and she lives in [facility]. Patient very interested in setting up medicaid rides. ?? TOUR NARRATOR researched which transportation provider serves [facility] and [facility]. [facility]. TOUR NARRATOR reviewed and provided patient with [facility] contact information ([phone]) and encouraged to call and enroll. Vital Signs at Discharge: BP: 122/67, Heart Rate: 89, Temp: 36.5 ??C (97.7 ??F), Resp: 14, BMI (Calculated): 22.08 Height: 165.1 cm (5' 5) (03/18/19 2146) Weight: 58.9 kg (129 lb 14 oz) (03/22/19 0500) Functional and Cognitive Status: No functional or cognitive impairment Important Studies and Lab Data: Labs: Last 3 wbc, hgb, hct plt Recent Labs 03/22/19 0356 03/21/19 0458 03/20/19 0000 WBC 5.0 5.0 5.3 HGB 13.1* 13.3* 12.7* HCT 39.0* 39.1* 37.2* PLATELET 176 172 149 Last 3 Lytes Recent Labs 03/22/19 0356 03/21/19 0458 03/20/19 0000 NA 138 140 138 K 3.7 3.6 3.9 CL 104 104 104 CO2 24 25 23 BUN 7* 9* 6* CREATININE 0.70* 0.69* 0.72* Last 3 LFTs Recent Labs 03/22/19 0356 03/21/19 0458 03/20/19 0000 AST 808* 1,406* 2,145* ALT 2,122* 2,828* 3,470* ALKPHOS 301* 258* 262* BILITOT 6.2* 6.9* 4.7* Last Ca, Mg, Phos Recent Labs 03/22/19 0356 CALCIUM 8.2* Last 3 Coags Recent Labs 03/22/19 0356 03/20/19 0000 03/19/19 0516 PT 11.3 16.7* 18.1* INR 1.0 1.5 1.6 PTT -- -- 32 Last 3 ProBNP, Trop, CK Recent Labs 03/19/19 0935 CK 33 Last 3 TFT No results for input(s): TSH in the last 7068 hours. Invalid input(s): T4, FT4 Last 3 Lipids No results for input(s): CHLPL, HDL, LDLCHOL, LDLDIRECT, TRIG in the last 7068 hours. Last 3 HgbA1C No results for input(s): HA1C in the last 7068 hours. Last CRP, SEDRATE Recent Labs 03/18/19 2300 CRP 64.7* SEDRATE 22* Studies: CT abdomen/pelvis (second read of [facility] imaging) 03/18/2019: Given the lack of perihepatic and pericholecystic inflammatory changes I suspect that findings described above are due to congestive thickening of the gallbladder wall with accompanying periportal edema. This edema may reflect hepatic parenchymal dysfunction. Concomitant adenomyomatosis. No abscess. If there is ongoing concern for occult acuity, HIDA scan is suggested. ?? Thank you for letting us participate in the care of this patient. For questions regarding this report, please contact the number below. Echocardiogram 03/19/2019 1. There is normal global left ventricular systolic function. The quantitative left ventricular ejection fraction by biplane Dietrich's method is 60%. There are no left ventricular segmental wall motion abnormalities. 2. Right ventricular chamber size, wall thickness, and systolic function are within normal limits. 3. There is no hemodynamically significant valve disease. 4. No valvular vegetations noted. Suggest a SUMMER if clinically indicated. 5. See remainder of report for additional findings. Pending Studies and Lab Data: Blood cultures from 03/18 Discharge Conditions: General:??alert and oriented, laying in bed, NAD HEENT:??EOMI, PERRL. Mild scleral icterus Neck: Supple, normal ROM, no JVD appreciated Heart:??2/6 SALMA best heard throughout precordium Lungs: No increased WOB; CTAB, no rhonchi/wheezes/rales Abdomen:??Soft, mild tenderness to palpation in RUQ and epigastrium. Extremities:??Clubbing noted bilateral. No peripheral edema. Neuro:??AOx3, non-focal, CN II-XII intact Discharge to: Home Updated Allergies/ADRs: Allergies Allergen Reactions ??? Vancomycin DRESS syndrome in 2018 ??? Gabapentin Itchiness reported, unknown if anaphylaxis Immunizations Given this Hospitalization: Immunization History Administered Date(s) Administered ??? Tdap Vaccine 03/26/2014 Discharge Medications: Your Medications New Medications Dose Details ibuprofen 400 mg Tab Commonly known as: ADVIL;MOTRIN Take 1 tablet by mouth every 6 hours as needed for Pain. 400 mg Quantity: 30 tablet Refills: 12 tenofovir 300 mg Tab Commonly known as: VIREAD Take 1 tablet by mouth daily. 300 mg Quantity: 30 tablet Refills: 3 varenicline 0.5 mg (11)- 1 mg (42) Dspk Commonly known as: CHANTIX Take as directed in the box instructions Quantity: 53 tablet Refills: 0 Continued medications, unchanged Dose Details GLECAPREVIR-PIBRENTASVIR ORAL Take by mouth. Refills: 0 traZODone 50 mg Tab Commonly known as: DESYREL Take 50 mg by mouth nightly. 50 mg Refills: 0 STOPPED Medications oxyCODONE 5 mg Tab Commonly known as: ROXICODONE Smoking Status at Discharge: Social History Tobacco Use Smoking Status Current Every Day Smoker ??? Packs/day: 1.00 ??? Years: 15.00 ??? Pack years: 15.00 ??? Types: Cigarettes Smokeless Tobacco Never Used Instructions Given to Patient at Discharge: Patient Instructions Instruction after leaving the hospital Why you were hospitalized: Acute hepatitis B infection Patient Instructions: - Please continue taking tenofovir 300mg once daily for hepatitis B - Please continue taking Mavyret for hepatitis C Follow-Up Appointments Date and Time Provider and Specialty Location 04/05/2019 8:30 AM Aileen Macias APRN , PCP You will be seen by Dr. Jaky RIOS DR / [facility] [phone] Future Appointments Date Time Provider Department Center 04/10/2019 2:00 PM Heron Grayson PA [facility]IN Call your doctor or seek medical attention if you develop the following: Call your doctor or seek medical attention if you experience any alarming symptoms. This may include, but is not limited to, fever, chest pain, severe shortness of breath, nausea with vomiting, persistent decrease in your urinary output, severe pain, or any other concerning symptoms. Your Inpatient Doctor(s) at [facility]: Franklin Andrade III, MD (attending physician) Flor Rivera MD and Kobi Self MD (residents) Your Primary Care Provider: PRAVEEN Duong DR / [facility] [phone] For questions regarding this document or issues relating to this hospitalization on the Medical Service, please contact your inpatient physician through the [facility] Reiki Practitioner . Issues afterhours and on weekends will be handled by the Hospitalist staff on-call. General Instructions Substance Use Treatment and Relapse Prevention Resources Residential Treatment: [facility] [address], [place] [address] Intensive Outpatient Programs: [facility] Substance Abuse Services [address] [place] [address] [place] [address] [facility] [address] [place] [address] Individual Therapy: [facility] [address] [place] [address] [facility] [address] [place] [address] You may also search www.[email or web address] or dial 211 for therapists in your area. Medication Assisted Treatment: [Insert Resources] [facility] [address], [address] [place] [address] Peer Support Groups Alcoholics Anonymous (AA) [place]: , www.nhaa.net Narcotics Anonymous (NA) [place]: , www.gmana.org 211: Your Connection to Recovery HUBS Dial 2-- from anywhere in [place] 30/05 to be connected with a mental health professional who can refer you to your local HUB for evaluation and referral to appropriate substance use treatment. Safe Station Present to any one of the fire stations in [place] or [facility], now designated as ???Safe Stations?? , a place where you can walk in, from anywhere in [place] 30/05, and get connected with substance use treatment services. [facility] Safe Stations Central Fire Station: [address] --- Station 2: [address] Station 3: [address] --- Station 4: [address] Station 5: [address] --- Station 6: [address] Station 7: [address]--- Station 8: [address] [facility] [address] Station 9: [address]--- Station 10: [address] [facility] Safe Stations Station 1: [address] --- Station 2: [address] --- Station 3: [address] Station 4: [address] --- Station 5: [address] -- Station 6: [address] Station 7: [address] Additional Resources http://health[place].gov/alcohol-drugs Http://UpDroid.org/ (Search for Substance Use) http://www.[employer].com/ Opiate Overdose Prevention: www.prescribetoprevent.org National Suicide Prevention Hotline: (857) 132-XBUH (6910) Suboxone Emergency Override There is an emergency override requirement on all medications that require prior insurance authorization. If you experience any issues picking up your suboxone prescription at the pharmacy you may request an override. They are required to provide the quantity of suboxone sufficient for 72 hours while the prior insurance authorization is being approved. Future Appointments and Orders Future Appointments and Orders Future Appointments Provider Department Dept Phone 04/10/2019 2:00 PM Heron Grayson PA [facility] Arrive at: [employer] [facility] [phone] Discharge References/Attachments None documented in this encounter Discharge Instructions * Discharge Instructions* Nando Gonzalez, SUPERVISOR RESPIRATORY - 03/19/2019 3:48 PM EDT Substance Use Treatment and Relapse Prevention Resources Residential Treatment: [facility] [address], [place] [address] Intensive Outpatient Programs: [facility] Substance Abuse Services [address] [place] [address] [place] [address] [address] Individual Therapy: Treatment [address] [address] [facility] [address] [facility] [address] [place] [address] You may also search www.[employer].Unicon or dial 211 for therapists in your area. Medication Assisted Treatment: [Insert Resources] Treatment [address], [address] [address] Peer Support Groups Alcoholics Anonymous (AA) [place]: , www.nhaa.net Narcotics Anonymous (NA) [place]: , www.gmana.org 211: Your Connection to Recovery HUBS Dial 2-1-1 from anywhere in [place] 30/05 to be connected with a mental health professional who can refer you to your local HUB for evaluation and referral to appropriate substance use treatment. Safe Station Present to any one of the fire stations in [place] or [facility], now designated as ???Safe Stations?? , a place where you can walk in, from anywhere in [place] 30/05, and get connected with substance use treatment services. [facility] Safe Stations Central Fire Station: [address] --- Station 2: [address] Station 3: [address] --- Station 4: [address] Station 5: [address] --- Station 6: [address] Station 7: [address]--- Station 8: [address] [facility] Station 9: [address]--- Station 10: [facility] Safe Stations Station 1: [address] --- Station 2: [address] --- Station 3: [address] Station 4: [address] --- Station 5: [address] -- Station 6: [address] Station 7: [address] Additional Resources http://healthvermont.gov/alcohol-drugs Http://UpDroid.org/ (Search for Substance Use) http://www.[employer].Unicon/ Opiate Overdose Prevention: www.prescribetoprevent.org National Suicide Prevention Hotline: (827) 387-FOCL (0179) Suboxone Emergency Override There is an emergency override requirement on all medications that require prior insurance authorization. If you experience any issues picking up your suboxone prescription at the pharmacy you may request an override. They are required to provide the quantity of suboxone sufficient for 72 hours while the prior insurance authorization is being approved. * Patient Instructions* Kobi Self MD - 03/21/2019 10:50 AM EDT Instruction after leaving the hospital Why you were hospitalized: Acute hepatitis B infection Patient Instructions: - Please continue taking tenofovir 300mg once daily for hepatitis B - Please continue taking Mavyret for hepatitis C Follow-Up Appointments Date and Time Provider and Specialty Location 04/05/2019 8:30 AM Aileen Macias APRN , PCP You will be seen by Dr. Jaky RIOS DR / [facility] [id number] Future Appointments Date Time Provider Department Center 04/10/2019 2:00 PM Heron Grayson PA [facility] [place] [facility] Call your doctor or seek medical attention if you develop the following: Call your doctor or seek medical attention if you experience any alarming symptoms. This may include, but is not limited to, fever, chest pain, severe shortness of breath, nausea with vomiting, persistent decrease in your urinary output, severe pain, or any other concerning symptoms. Your Inpatient Doctor(s) at [facility]: Franklin Andrade III, MD (attending physician) Flor Rivera MD and Kobi Self MD (residents) Your Primary Care Provider: PRAVEEN Duong DR / [facility] [id number] For questions regarding this document or issues relating to this hospitalization on the Medical Service, please contact your inpatient physician through the [facility] Reiki Practitioner . Issues afterhours and on weekends will be handled by the Hospitalist staff on-call. documented in this encounter Medications at Time of Discharge Medication Sig Dispensed Refills Start Date End Date ibuprofen (ADVIL;MOTRIN) 400 mg Tablet Take 1 tablet by mouth every 6 hours as needed for Pain. 30 tablet 12 03/22/2019 varenicline (CHANTIX) 0.5 mg (11)- 1 mg (42) Tablets, Dose Pack Take as directed in the box instructions 53 tablet 03/22/2019 02/11/2021 tenofovir (VIREAD) 300 mg Tablet Take 1 tablet by mouth daily. 30 tablet 3 03/22/2019 02/11/2021 traZODone (DESYREL) 50 mg Tablet Take 50 mg by mouth nightly. 05/06/2021 GLECAPREVIR-PIBRENTAS VIR ORAL Take by mouth. 04/11/2019 documented as of this encounter Progress Notes * Franklin Andrade III, MD - 03/22/2019 11:55 AM EDT Hospital Medicine - Attending Day of Discharge Documentation Discharge diagnosis Active Hospital Problems Diagnosis ??? Sepsis ??? Chronic hepatitis C without hepatic coma ??? DRESS syndrome ??? IVDU (intravenous drug user) ??? History of alcohol use Resolved Hospital Problems Diagnosis Date Resolved ??? Bacteremia 03/18/2019 Secondary Issues There are no active non-hospital problems to display for this patient. I have personally seen and examined the patient and they are ready for discharge. I spent >30 minutes (Day of Discharge Code 92188) involved in the final examination of the patient, discussion of the hospital stay, instructions for continuing care to all relevant caregivers, and preparation of discharge records, prescriptions and referral forms. Plans ? Discharge to home ? Follow-up scheduled with GI, PCP ? Please see the Discharge Summary for complete details of any medication changes and additional plans. * Emma Gómez, RN - 03/22/2019 11:52 AM EDT Gabriel Storm discharged to Home by private car with mother. All belongings sent with patient. BENJAMIN removed, skin free from pressure ulcers. Discharge instructions, medications, and follow-up appointments reviewed, education provided on drug and alcohol rehab options, all questions answered. Patient instructed to call with concerns. Pt left with nicotine patch on L upper back. * Nurys Alatorre MSW - 03/22/2019 9:13 AM EDT DISCHARGE NOTE During Rounds, MD team reports patient is medically to be discharged home today. TOUR NARRATOR met with patient at bedside to ask about discharge ride home. Patient reports his mother can pick him up (MD team aware). Patient reports he was not going to walk home. TOUR NARRATOR relayed wanted to confirm if family were coming or if needed to arrange a medicaid ride. Patient was unaware of medicaid rides and asked how to start using them. Patient reports he has a car, but does not have a license at this time (has DUI) and unaware of this benefit. TOUR NARRATOR relayed the provider varies county to county and need to enrollthen call 48 hours before doctor appointments. TOUR NARRATOR relayed a volunteer would pick him up at his home, bring to appointment, and pick up man to bring back home. Patient reports he [facility] for now. He reports his ex-/friend offered for himto return to her home temporarily and she lives in [facility]. Patient very interested in setting up medicaid rides. TOUR NARRATOR researched which transportation provider serves [facility] and [facility]. [facility]. TOUR NARRATOR reviewed and provided patient with [facility] contact information ([phone]) and encouraged to call and enroll. Patient was on phone with his mother and confirmed again with her that she can pick him up today at 1:00pm. Patient appreciative of resource and support provided during this visit. TOUR NARRATOR updated unit RN and analytics specialist of discharge ride time. TOUR NARRATOR is available as needed or requested. GARRETT Beltran Pager: [phone] * Nurys Alatorre MSW - 03/21/2019 4:03 PM EDT TOUR NARRATOR met with patient at bedside. TOUR NARRATOR introduced self and role to patient, patient's mother Lizeth, and ex-/friend Delmy. Patient interested in completing Appointment of [facility] (see AD note). Concerns that patient may be homeless. Patient was quiet during visit and provided minimal answers possibly because family at bedside. TOUR NARRATOR met with Delmy outside of room to complete her contact informationfor AD. She reports patient lives in not an ideal environment. She reports they were in 1996, in 2007, and co- parents their two sons who are 13 years old and 14 years old. She reports patient was staying with her, their sons, and her fiancee Nayan until recently. She reports heydihas to move out by May to new apartment and talking with Nayan about asking patient to come back and stay with them until May and maybe rent another place together. Delmy reports patient has triedstaying with his mother but she is very difficult to get along with at times. Delmy feels when patient was with her and her family, he would go to work, come home spend time with the boys eat dinner as a family and go to bed. She feels now patient is in an environment that is not safe or good forhim. TOUR NARRATOR encouraged Delmy to have conversation to invite patient back to stay with her even till May or to discuss her concerns about his current home situation. Delmy reports she does not know muchabout where he is living because patient is a private person. She reports she and Nayan will approach again with patient. Delmy reports they all get along very well and their friendship is better since they have been and tries to be supportive for patient as he has been for her. She wants to help patient since feels he was in a better place emotionally and physically when he was with her compared to where he is now. Patient has already met with [facility] for substance abuse resources (declined) and support. Patient is ready to discharge tomorrow and denies any concerns. Per MD team, patient can be discharged home tomorrow no needs and believe family can provide transportation. TOUR NARRATOR/RNCM to confirm ride home since Delmy and Lizethindia collazomary and may not be able to pick patient up.If not, then can arranged Medicaid ride home. TOUR NARRATOR will follow until discharged. GARRETT Beltran Pager: [phone] * Flor Rivera MD - 03/21/2019 7:10 AM EDT Inpatient Medicine Progress Note Patient ID: Gabriel Storm is a 43 y.o. male Gabriel Storm is a 43 y.o. male with a PMHX significant for hx of active IVDU (cocaine), Hep C (on mavyret), hx of DRESS with reaction to vancomycin who presents to [facility] with a 2-3 day history of fevers and abdominal pain. Hospital Day 3 days Active Hospital Problems Diagnosis ??? Sepsis ??? Chronic hepatitis C without hepatic coma ??? DRESS syndrome ??? IVDU (intravenous drug user) ??? History of alcohol use Resolved Hospital Problems Diagnosis Date Resolved ??? Bacteremia 03/18/2019 Interval History: Yesterday: -Continued tenofovir, given high suspicion for acute hepatitis B infection -D/korey acyclovir, given low likleihood of HSV hepatitis -D/korey zosyn and daptomycin given negative cultures here and at OSH -GI: OK to stop acyclovir, resume Mavyret when available, stop antibiotics if cultures remain negative Overnight: -Vomited x1 after eating and getting meds, EKG QTc 476, received compazine 5mg IV q8h prn -hip pain ok this AM -endorses just chills overnight, no fevers -Mild epigastric pain (2/10) -has appetite, wants to stick solid food Active Medications: Scheduled: Scheduled Meds: ??? glecaprevir-pibrentasvir 3 tablet Oral Daily with dinner ??? tenofovir 300 mg Oral Daily ??? traZODone 50 mg Oral Nightly ??? sodium chloride 0.9 % 5 mL Intravenous BID ??? enoxaparin 40 mg Subcutaneous Nightly ??? nicotine 1 patch Transdermal Daily And ??? Patch Verification 1 patch Transdermal BID And ??? nicotine 1 patch Transdermal Daily Continuous: Continuous Infusions: PRNs: PRN Meds:.ibuprofen, prochlorperazine, sodium chloride 0.9 %, lidocaine Vitals: Last value Range last 24 hrs Temperature Temp: 36.6 ??C (97.9 ??F) Temp: [36.6 ??C (97.9 ??F)-37 ??C (98.6 ??F)] Heart Rate Heart Rate: 63 Heart Rate: [63-100] Blood Pressure BP: 114/69 BP: (109-129)/(62-76) Respiratory Rate Resp: 18 Resp: [15-25] SpO2 SpO2: 98 % SpO2: [95 %-99 %] On RA Ins/Outs: Intake/Output Summary (Last 24 hours) at 03/21/2019 0711 Last data filed at 03/20/2019 1845 Gross per 24 hour Intake 840 ml Output 945 ml Net -105 ml Patient Vitals for the past 168 hrs: Weight 03/20/19 0623 59.6 kg (131 lb 6.3 oz) 03/18/19 2146 60.2 kg (132 lb 11.5 oz) Physical Exam: General: alert and oriented, laying in bed, NAD HEENT: EOMI, PERRL. Mild scleral icterus Neck: Supple, normal ROM, no JVD appreciated Heart: 2/6 SALMA best heard throughout precordium Lungs: No increased WOB; CTAB, no rhonchi/wheezes/rales Abdomen: Soft, mild tenderness to palpation in RUQ and epigastrium. Extremities: Clubbing noted bilateral. No peripheral edema. Neuro: AOx3, non-focal, CN II-XII intact ?? Labs: Recent Labs 03/21/1945703/20/19 0000 03/19/19 0701 WBC 5.0 5.3 5.6 HGB 13.3* 12.7* 13.3* PLATELET 172 149 151 40 meq KCl Recent Labs 03/21/1945703/20/19 0000 03/19/19 0701 NA 140 138 135 K 3.6 3.9 4.2 CL 104 104 102 CO2 25 23 21* BUN 9* 6* 7* CREATININE 0.69* 0.72* 0.67* Recent Labs 03/21/1945703/20/19 0000 03/19/19 0701 CALCIUM 8.3* 8.1* 8.2* MAGNESIUM 0.91 0.91 0.70 Corrected Calcium Recent Labs 03/21/1945703/20/19 0000 03/19/19 0701 AST 1,406* 2,145* 3,050* ALT 2,828* 3,470* 4,010* ALKPHOS 258* 262* 267* BILITOT 6.9* 4.7* 4.6* Coags No results found for: INR, PT, PTT Results for GABRIEL STORM ( ) as of 03/19/2019 07:27 Ref. Range 03/18/2019 23:00 CRP Latest Ref Range: <=4.9 mg/L 64.7 (H) Results for GABRIEL STORM ( ) as of 03/19/2019 12:00 Ref. Range 03/19/2019 07:01 03/19/2019 09:35 LDH Latest Ref Range: 110 - 220 unit/L 905 (H) 772 (H) Recent Labs 03/19/19 0935 CK 33 No results for input(s): PHART, PMW3JOX, PO2ART, XII0TXK in the last 168 hours. Results for GABRIEL STORM ( ) as of 03/19/2019 08:49 Ref. Range 03/18/2019 23:00 Ceruloplasmin Latest Ref Range: 15.0 - 30.0 mg/dL 30.0 LDH 905 REGI negative CK 33 Acetaminophen level <5 U tox positive for cocaine and cannibinoids Microbiology: Microbiology Results (Last 30 days) Procedure Component Value Units Date/Time Blood culture [[id number]] Collected: 03/18/19 2315 Lab Status: Preliminary result Specimen: Blood from Hand, Left Updated: 03/21/19700 Blood Culture No growth at 2 days. Blood culture [[id number]] Collected: 03/18/19 2300 Lab Status: Preliminary result Specimen: Blood Updated: 03/21/19700 Blood Culture No growth at 2 days. Results for GABRIEL STORM ( ) as of 03/20/2019 22:24 Ref. Range 03/18/2019 23:00 HIV-1/2 Ab and Ag Latest Ref Range: Negative Negative EBV DNA BY PCR Latest Ref Range: Undetected IU/mL Undetected HCV Viral Load Latest Units: IU/mL <12 Hepatitis A Ab Latest Ref Range: Negative Indeterminate (A) HepB Surface Ab Quant Latest Units: IU/L <3.5 HepB Surface Ab Unknown Negative HepB Surface Ag Latest Ref Range: Negative Positive (A) Hep B Core Ab Latest Ref Range: Negative Positive (A) HSV Type 1 Antibody, IgG Latest Ref Range: Neg Pos (A) HSV Type 2 Antibody, IgG Latest Ref Range: Neg Pos (A) Imaging Studies: None New CT Abdomen and Pelvis (Second Read): ?? Lower chest: 5 mm peripheral lingular nodule of unknown clinical significance. ?? Liver: Normal size and attenuation without lesions. Bile ducts: Nondilated. Gallbladder: Hydropic. Mural nodularity. Cannot distinguish pericholecystic fluid from mural congestion. Pancreas: Normal attenuation without ductal dilatation. Spleen: Normal. Adrenals: Normal. Kidneys: Normal. Urinary Bladder: LAT ?? Vasculature: Normal Lymph Nodes: No enlarged lymph nodes. Bowel: Nondilated, no wall thickening. Peritoneum and mesentery: Periportal edema. This extends into the saroj hepatis. Free fluid confined to the gallbladder fossa, smooth borders. No loculated fluid collections. No free air. Abdominal wall: Normal. ?? Reproductive organs: Normal prostate contour Osseous structures: Degenerative changes characterized by anterior superior and inferior endplate osteophytes without suspicious lesion nor acute fracture. ?? IMPRESSION Given the lack of perihepatic and pericholecystic inflammatory changes I suspect that findings described above are due to congestive thickening of the gallbladder wall with accompanying periportal edema. This edema may reflect hepatic parenchymal dysfunction. Concomitant adenomyomatosis. No abscess. If there is ongoing concern for occult acuity, HIDA scan is suggested. Cardiovascular Studies: TTE: SUMMARY: ?? 1. There is normal global left ventricular systolic function. The quantitative left ventricular ejection fraction by biplane Dietrich's method is 60%. There are no left ventricular segmental wall motion abnormalities. 2. Right ventricular chamber size, wall thickness, and systolic function are within normal limits. 3. There is no hemodynamically significant valve disease. 4. No valvular vegetations noted. Suggest a SUMMER if clinically indicated. 5. See remainder of report for additional findings. Assessment: Gabriel Storm is a 43 y.o. male with a PMHX significant for hx of active IVDU (cocaine), Hep C (on mavyret), hx of DRESS with reaction to vancomycin who presents to [facility] with a 2-3 day history of fevers and abdominal pain. Patient presented with mild RUQ/Epigastric abdominal pain and seemingly acute liver failure with transaminitis in the thousands; INR wnl. Specific etiologies include Tylenol toxicity, acute viral hepatitis, Budd-Chiari, Autoimmune hepatitis, acute Hank's disease. Will undergo RUQ U/S with dopplers to exclude Budd-Chiari. Due to unknown etiology of liver failure, he was initiated on NAC protocol, which has shown to be beneficial even in cases of non-acetaminophen toxicity acute liver failure. Low possibility of shock liver, though still plausible. Spoke briefly with GI tonight and appreciate their involvement. Given positive hepatitis B surface antigen, positive core anti body and negative hepatitis B surface antibody, his acute liver failure likely represents acute hepatitis B virus infection. He has beenstarted on tenofovir. His acetamipnophen level and ceruoplasmin levels are unremarkable, making tylenol toxicity and Hank's disease unlikely. Additionally REGI is negative, making autoimmune hepatitis unlikely. His HCV viral load is undetectable. Family has brought in his Mavyret. LFTs are downtrending. Currently managing pain with NSAIDs and avoiding Tylenol and opioids. Blood cultures from [facility] and here have been NGTD. We have discontinued vancomycin and daptomycin. He has remained afebrile, HDS and without leukocytosis. TTE is without evidence of endocarditis. His abdominal pain is imporving and he is now tolerating PO intake. Additionally, his LFTs continueto improve. The elevated bilirubin is likely a delayed reaction, as Alk phos is stable arguing against biliary obstruction and hemoglobin is stable arguing against hemolysis. We will touch base with GI regarding the duration of his acute HBV treatment and will start working on a disposition plan.Plan as below. Plan: # Acute Liver Failure #Suspected Acute Hepatitis B infection #Transaminitis - improving #Elevated INR DDx includes Tylenol toxicity, acute viral hepatitis, Budd-Chiari, Autoimmune hepatitis, acute Hank's disease - GI consulted, appreciate reccs -Vitamin K for elevated INR -start tenofovir for suspected acute hepatitis B infection -will f/u with GI regarding duration of tenofovir - 2nd read of OSH CT - Tolerating regular diet - Tylenol level wnl - CMV - EBV - HSV - IgG positive - HIV negative - Hep A, B, C -positive Hep B core Ab -positive Hep B surface antigen -negative Hep surface Ab -hep A ab indeterminate -HCV viral load undetectable -HBV viral load pending - REGI negative - ESR/CRP elevated - Ceruloplasmin wnl - RUQ w/ dopplers d/korey given patent PV and HV on CT imaging -Vitamin K -Resume home Mavyret #Nausea -PRN compazine #HCV Infection -HCV viral load undetectable -Mavyret -will retrieve records from GI doc ?? # Fevers - resolved Unknown if related to TONE - D/C Daptomycin - D/C Zosyn - Stop Acyclovir given suspicion for acute HBV infection - TTE without vegetations - BCx x2, F/U [facility] BCx - NGTD - [facility] records from endocarditis/bacteremia in 2018 - UDS positive for cocaine and cannabinoids #Bilateral Hip Pain #Headache -Avoid Tylenol and opioids -NSAIDs ?? # IVDU # ?Homelessness # Tobacco Use disorder - Social work consult - [facility] team consult - Nicotine patch ?? # Routine - DVT PPx: Lovenox - GI PPx: None - Bowel meds: None - Code Status: FULL Flor Rivera MD PGY1, Internal Medicine 03/21/2019 Associated attestation - Franklin Andrade III, MD - 03/21/2019 4:48 PM EDT Attending Attestation Please see Dr Rivera's note for details of the patient history of presentation and data. I have discussed, reviewed and agree with the documented History, Physical findings, Assessment and Plan of care. I have examined the patient myself and personally reviewed all studies. In addition, I certify thatI am a [facility] credentialed attending provider with admitting privileges and that the patient meets or has met medical necessity to require an inpatient IPI level of care meeting a minimum of two midnights or is on the [facility] inpatient only procedure list (status C) due to: acute liver failure, concern for infection/sepsis * Mildred Lance RN - 03/20/2019 1:39 PM EDT SBAR report called to [facility] Wade. Pt c/o pain RUQ/epigastric pain, pt curled in bed. Dr. Miguel upton, reassured RN that he would come to assess pt. VS remained stable. Pt requested to walk to 1 [address], pt gait steady. RN walked pt to 1 [address], stretcher at pt side if needed. Transferred to 142A * Jeremy Lim MD - 03/20/2019 8:13 AM EDT GASTROENTEROLOGY & HEPATOLOGY INPATIENT PROGRESS NOTE ID: 43 y.o. year old M with hx of active IVDU, hep C on Mavyret (started 6 weeks ago), presented initially to [facility] on 03/15/19 with 3 days of fevers and chills, found to have acute liver failure, currentlyno signs of encephalopathy. Most likely either acute hep B or reactivation of hep B in the setting of recently starting Mavyret. Interval History: - Afebrile for last 24 hours - Transaminases downtrending, TB and INR relatively stable - Viral serologies came back with + HBV surface Ag and + HBV total core Ab - Tolerating regular diet - Overall feeling much better Active Hospital Problem List Patient Active Problem List Diagnosis Code ??? Sepsis A41.9 ??? Chronic hepatitis C without hepatic coma B18.2 ??? DRESS syndrome L27.0, D72.1, T50.905A ??? IVDU (intravenous drug user) F19.90 ??? History of alcohol use Z87.898 Scheduled Meds: ??? acyclovir 500 mg Intravenous Q8H ??? tenofovir 300 mg Oral Daily ??? traZODone 50 mg Oral Nightly ??? sodium chloride 0.9 % 5 mL Intravenous BID ??? enoxaparin 40 mg Subcutaneous Nightly ??? piperacillin-tazobactam 3.375 g Intravenous Q8H ??? DAPTOmycin 6 mg/kg/dose (Adjusted) Intravenous Q24H ??? nicotine 1 patch Transdermal Daily And ??? Patch Verification 1 patch Transdermal BID And ??? nicotine 1 patch Transdermal Daily Continuous Infusions: PRN Meds:.sodium chloride 0.9 %, lidocaine Physical Examination Vitals: 03/19/19 2354 03/20/19 0018 03/20/19 0353 03/20/19 0623 BP: 96/55 100/62 113/67 BP Location (NBP): Right arm Right arm Right arm Patient Position: Lying Lying Lying Pulse: 90 95 78 Resp: 21 12 24 Temp: 37.6 ??C (99.7 ??F) 36.8 ??C (98.2 ??F) TempSrc: Oral Oral SpO2: 96% 95% 98% Weight: 59.6 kg (131 lb 6.3 oz) Height: PHYSICAL EXAM GENERAL: No acute distress, alert and oriented, unkempt HEENT: AT/NC, sclerae icteric, moist mucous membranes ABDOMEN: Soft, normoactive bowel sounds, non-tender, non-distended EXT: Warm, no edema SKIN: jaundiced Pertinent Recent labs CBC Lab Results Component Value Date WBC 5.3 03/20/2019 Hemoglobin 12.7 (L) 03/20/2019 Hematocrit 37.2 (L) 03/20/2019 Platelets 149 03/20/2019 Lab Results Component Value Date Sodium 138 03/20/2019 Potassium 3.9 03/20/2019 Chloride 104 03/20/2019 CO2 23 03/20/2019 BUN 6 (L) 03/20/2019 Creatinine 0.72 (L) 03/20/2019 LFT's Lab Results Component Value Date Alk Phos 262 (H) 03/20/2019 AST 2,145 (H) 03/20/2019 Albumin 3.0 (L) 03/20/2019 Total Bilirubin 4.7 (H) 03/20/2019 ALT 3,470 (H) 03/20/2019 Total Protein 5.7 (L) 03/20/2019 Pertinent Endoscopic Procedures/Reports: Reviewed in eDH 03/18/19 CT AP: Given the lack of perihepatic and pericholecystic inflammatory changes I suspect that findings described above are due to congestive thickening of the gallbladder wall with accompanying periportal edema. This edema may reflect hepatic parenchymal dysfunction. Concomitant adenomyomatosis. No abscess. If there is ongoing concern for occult acuity, HIDA scan is suggested. Pertinent Recent Imaging: Reviewed in eDH Impression: 43 y.o. year old M with hx of active IVDU, hep C on Mavyret (started 6 weeks ago), presented initially to [facility] on 03/15/19 with 3 days of fevers and chills, found to have acute liver failure, currentlyno signs of encephalopathy. Most likely either acute hep B or reactivation of hep B in the setting of recently starting Mavyret. He is now started on tenofovir and appears to be clinically improving. Plan: -Ok to stop acylcovir as we have an alternative explanation -Continue tenofovir 300 mg daily -Patient's mother bringing his home supply of Mavyret, would start this back as soon as able -Would try to obtain collateral from patients PCP in [facility] -F/u HCV and HBV PCR, HBV Core IgM -F/u REGI/ASMA though presentation would be very atypical for AIH -F/u EBV, CMV, HSV, HIV testing -If blood cultures remain negative and he remains afebrile, can consider stopping antibiotics -Daily CMP, INR -Monitor closely for signs of encephalopathy This case was discussed with Dr. Escobar. Jeremy Lim MD Gastroenterology Fellow #[id number] Associated attestation - Alysa Escobar MD - 03/20/2019 11:26 PM EDT ATTENDING ADDENDUM I interviewed and examined Gabriel Storm with Dr. Lim on rounds today. I have discussed the case with him and confirm the history and jain physical findings outlined in this note. The assessment and plan were formulated in discussion with me at the time of this encounter, and I agree with them as documented. Awaiting further testing but high concern for either new acute HBV infection (though denies recent risk factors) or reactivation in the setting of HCV treatment. Continue tenofovir and will need pt to obtain home Mavyret ROSY to resume therapy. Kristan Escobar MD [employer] Handdental assisting instructor Co-Director, [facility] Section of Gastroenterology [place] [address] * Flor Rivera MD - 03/20/2019 6:59 AM EDT Inpatient Medicine Progress Note Patient ID: Gabriel Storm is a 43 y.o. male Gabriel Storm is a 43 y.o. male with a PMHX significant for hx of active IVDU (cocaine), Hep C (on mavyret), hx of DRESS with reaction to vancomycin who presents to [facility] with a 2-3 day history of fevers and abdominal pain. Hospital Day 2 days Active Hospital Problems Diagnosis ??? Sepsis ??? Chronic hepatitis C without hepatic coma ??? DRESS syndrome ??? IVDU (intravenous drug user) ??? History of alcohol use Resolved Hospital Problems Diagnosis Date Resolved ??? Bacteremia 03/18/2019 Interval History: Yesterday: -GI: RUQ with doppler not necessary given PV and HV widely patent on CT scan. Likley infectious hepatitis, most likley viral. Continue acyclovir -Started on tenofovir Overnight: -Patient taking PO fluids, d/c'ed maintenance IVF - frequent PVCs on tele, patient sleeping comfortably, VSS, K 4.2, mag 0.7 s/p 2g magnesium sulfate -Patient complaining of bilateral hip pain -> received toradol 15 mg with good effect -tolerated FLD -hip pain ok this AM -just chills this AM, no fevers -Mild epigastric pain -has appetite, wants solid food Active Medications: Scheduled: Scheduled Meds: ??? acyclovir 500 mg Intravenous Q8H ??? tenofovir 300 mg Oral Daily ??? traZODone 50 mg Oral Nightly ??? sodium chloride 0.9 % 5 mL Intravenous BID ??? enoxaparin 40 mg Subcutaneous Nightly ??? piperacillin-tazobactam 3.375 g Intravenous Q8H ??? DAPTOmycin 6 mg/kg/dose (Adjusted) Intravenous Q24H ??? nicotine 1 patch Transdermal Daily And ??? Patch Verification 1 patch Transdermal BID And ??? nicotine 1 patch Transdermal Daily Continuous: Continuous Infusions: PRNs: PRN Meds:.sodium chloride 0.9 %, lidocaine Vitals: Last value Range last 24 hrs Temperature Temp: 36.8 ??C (98.2 ??F) Temp: [36.7 ??C (98.1 ??F)-38.1 ??C (100.6 ??F)] Heart Rate Heart Rate: 78 Heart Rate: [78-102] Blood Pressure BP: 113/67 BP: (96-120)/(55-75) Respiratory Rate Resp: 24 Resp: [12-28] SpO2 SpO2: 98 % SpO2: [94 %-99 %] Ins/Outs: Intake/Output Summary (Last 24 hours) at 03/20/2019 0659 Last data filed at 03/20/2019 0627 Gross per 24 hour Intake 3356 ml Output 3875 ml Net -519 ml Patient Vitals for the past 168 hrs: Weight 03/20/19 0623 59.6 kg (131 lb 6.3 oz) 03/18/19 2146 60.2 kg (132 lb 11.5 oz) Physical Exam: General: alert and oriented, laying in bed, NAD HEENT: EOMI, PERRL. Mild scleral icterus Neck: Supple, normal ROM, no JVD appreciated Heart: 2/6 SALMA best heard throughout precordium Lungs: No increased WOB; CTAB, no rhonchi/wheezes/rales Abdomen: Soft, mild tenderness to palpation in RUQ and epigastrium. Extremities: Clubbing noted bilateral. No peripheral edema. Neuro: AOx3, non-focal, CN II-XII intact ?? Labs: Recent Labs 03/20/19 0000 03/19/19 0701 03/18/19 2300 WBC 5.3 5.6 5.8 HGB 12.7* 13.3* 13.2* PLATELET 149 151 164 Recent Labs 03/20/19 0000 03/19/19 0701 03/18/19 2300 NA 138 135 138 K 3.9 4.2 3.3* CL 104 102 102 CO2 23 21* 24 BUN 6* 7* 10 CREATININE 0.72* 0.67* 0.82 Recent Labs 03/20/19 0000 03/19/19 0701 03/18/19 2300 CALCIUM 8.1* 8.2* 8.1* MAGNESIUM 0.91 0.70 -- Recent Labs 03/20/19 0000 03/19/19 0701 03/18/19 2300 AST 2,145* 3,050* 3,255* ALT 3,470* 4,010* 3,986* ALKPHOS 262* 267* 276* BILITOT 4.7* 4.6* 4.8* Coags Lab Results Component Value Date INR 1.5 03/20/2019 PT 16.7 (H) 03/20/2019 Results for DOTTYGABRIEL GONZALES ( ) as of 03/19/2019 07:27 Ref. Range 03/18/2019 23:00 CRP Latest Ref Range: <=4.9 mg/L 64.7 (H) Results for DOTTY, GABRIEL Edd ( ) as of 03/19/2019 12:00 Ref. Range 03/19/2019 07:01 03/19/2019 09:35 LDH Latest Ref Range: 110 - 220 unit/L 905 (H) 772 (H) Recent Labs 03/19/19 0935 CK 33 No results for input(s): PHART, ASB9ASY, PO2ART, AGN2CYO in the last 168 hours. Results for DOTTYGABRIEL Edd ( ) as of 03/19/2019 08:49 Ref. Range 03/18/2019 23:00 Ceruloplasmin Latest Ref Range: 15.0 - 30.0 mg/dL 30.0 LDH 905 REGI negative CK 33 Acetaminophen level <5 U tox positive for cocaine and cannibinoids Microbiology: Microbiology Results (Last 30 days) Procedure Component Value Units Date/Time Blood culture [[id number]] Collected: 03/18/192314 Lab Status: Preliminary result Specimen: Blood from Hand, Left Updated: 03/20/19 07 Blood Culture No growth at 1 day. Blood culture [[id number]] Collected: 03/18/19 2300 Lab Status: Preliminary result Specimen: Blood Updated: 03/20/19 07 Blood Culture No growth at 1 day. Results for GABRIEL STORM ( ) as of 03/20/2019 15:46 Ref. Range 03/18/2019 23:00 HCV Viral Load Latest Units: IU/mL <12 Hepatitis A Ab Latest Ref Range: Negative Indeterminate (A) HepB Surface Ab Quant Latest Units: IU/L <3.5 HepB Surface Ab Unknown Negative HepB Surface Ag Latest Ref Range: Negative Positive (A) Hep B Core Ab Latest Ref Range: Negative Positive (A) HSV Type 1 Antibody, IgG Latest Ref Range: Neg Pos (A) HSV Type 2 Antibody, IgG Latest Ref Range: Neg Pos (A) Imaging Studies: None New CT Abdomen and Pelvis (Second Read): ?? Lower chest: 5 mm peripheral lingular nodule of unknown clinical significance. ?? Liver: Normal size and attenuation without lesions. Bile ducts: Nondilated. Gallbladder: Hydropic. Mural nodularity. Cannot distinguish pericholecystic fluid from mural congestion. Pancreas: Normal attenuation without ductal dilatation. Spleen: Normal. Adrenals: Normal. Kidneys: Normal. Urinary Bladder: LAT ?? Vasculature: Normal Lymph Nodes: No enlarged lymph nodes. Bowel: Nondilated, no wall thickening. Peritoneum and mesentery: Periportal edema. This extends into the saroj hepatis. Free fluid confined to the gallbladder fossa, smooth borders. No loculated fluid collections. No free air. Abdominal wall: Normal. ?? Reproductive organs: Normal prostate contour Osseous structures: Degenerative changes characterized by anterior superior and inferior endplate osteophytes without suspicious lesion nor acute fracture. ?? IMPRESSION Given the lack of perihepatic and pericholecystic inflammatory changes I suspect that findings described above are due to congestive thickening of the gallbladder wall with accompanying periportal edema. This edema may reflect hepatic parenchymal dysfunction. Concomitant adenomyomatosis. No abscess. If there is ongoing concern for occult acuity, HIDA scan is suggested. Cardiovascular Studies: TTE: SUMMARY: ?? 1. There is normal global left ventricular systolic function. The quantitative left ventricular ejection fraction by biplane Dietrich's method is 60%. There are no left ventricular segmental wall motion abnormalities. 2. Right ventricular chamber size, wall thickness, and systolic function are within normal limits. 3. There is no hemodynamically significant valve disease. 4. No valvular vegetations noted. Suggest a SUMMER if clinically indicated. 5. See remainder of report for additional findings. Assessment: Gabriel Storm is a 43 y.o. male with a PMHX significant for hx of active IVDU (cocaine), Hep C (on mavyret), hx of DRESS with reaction to vancomycin who presents to [facility] with a 2-3 day history of fevers and abdominal pain. Patient presented with mild RUQ/Epigastric abdominal pain and seemingly acute liver failure with transaminitis in the thousands; INR wnl. Specific etiologies include Tylenol toxicity, acute viral hepatitis, Budd-Chiari, Autoimmune hepatitis, acute Hank's disease. Will undergo RUQ U/S with dopplers to exclude Budd-Chiari. Due to unknown etiology of liver failure, he was initiated on NAC protocol, which has shown to be beneficial even in cases of non-acetaminophen toxicity acute liver failure. Low possibility of shock liver, though still plausible. Spoke briefly with GI tonight and appreciate their involvement. Given positive hepatitis B surface antigen, positive core anti body and negative hepatitis B surface antibody, his acute liver failure likely represents acute hepatitis B virus infection. He has beenstarted on tenofovir. His acetamipnophen level and ceruoplasmin levels are unremarkable, making tylenol toxicity and Hank's disease unlikely. Additionally REGI is negative, making autoimmune hepatitis unlikely. His HCV viral load is undetectable. Family has brought in his [place]. LFTs are downtrending. Currently managing pain with NSAIDs and avoiding Tylenol and opioids. Blood cultures from [facility] and here have been NGTD. We have discontinued vancomycin and daptomycin. He has remained afebrile, HDS and without leukocytosis. TTE is without evidence of endocarditis. ?? He is stable to be transferred to the floor. Plan as below. Plan: # Acute Liver Failure #Suspected Acute Hepatitis B infection #Transaminitis - improving #Elevated INR DDx includes Tylenol toxicity, acute viral hepatitis, Budd-Chiari, Autoimmune hepatitis, acute Hank's disease - GI consulted, appreciate reccs -Vitamin K for elevated INR -start tenofovir for suspected acute hepatitis B infection -will f/u with GI regarding NAC protocol - 2nd read of OSH CT - Tolerating regular diet - Tylenol level wnl - CMV - EBV - HSV - IgG positive - HIV negative - Hep A, B, C -positive Hep B core Ab -positive Hep B surface antigen -negative Hep surface Ab -hep A ab indeterminate -HCV viral load undetectable -HBV viral load pending - REGI negative - ESR/CRP elevated - Ceruloplasmin wnl - RUQ w/ dopplers d/korey given patent PV and HV on CT imaging -Vitamin K -Resume home Mavyret ?? # Fevers - resolved Unknown if related to [facility] - D/C Daptomycin - D/C Zosyn - Stop Acyclovir given suspicion for acute HBV infection - TTE without vegetations - BCx x2, F/U [facility] BCx - NGTD - [facility] records from endocarditis/bacteremia in 2018 - UDS positive for cocaine and cannabinoids #Bilateral Hip Pain #Headache -Avoid Tylenol and opioids -NSAIDs ?? # IVDU # ?Homelessness # Tobacco Use disorder - Social work consult - BIT team consult - Nicotine patch ?? # Routine - DVT PPx: Lovenox - GI PPx: None - Bowel meds: None - Code Status: FULL Flor Rivera MD PGY1, Internal Medicine 03/20/2019 Associated attestation - Franklin Andrade III, MD - 03/20/2019 6:04 PM EDT Attending Attestation Please see Dr Rivera's note for details of the patient history of presentation and data. I have discussed, reviewed and agree with the documented History, Physical findings, Assessment and Plan of care. I have examined the patient myself and personally reviewed all studies. In addition, I certify thatI am a D-H credentialed attending provider with admitting privileges and that the patient meets or has met medical necessity to require an inpatient IPI level of care meeting a minimum of two midnights or is on the [facility] inpatient only procedure list (status C) due to: acute liver failure, concern for infection/sepsis * Angel Jones, RN - 03/19/2019 8:07 AM EDT Shift Note [id number]: [facility]. Pt able to ambulate to bed, monitors applied and alarm limits set. Pt voiding on arrival, bright yellow odorous urine - unsure of last BM. Pt appearing unwell, shivering requesting heated blankets. Vital signs obtained see flow sheet, afebrile on arrival. Pt reporting bilateral hip pain on arrival - states I have arthritis in my hips and back. Pt reports pain relief with laying prone. Pt febrile this am 38.8, team notified, sepsis bundle triggered, condition known. Fluid bolus administered as ordered. Pt continues to report feeling cold, hot to touch. Pt NPO at midnight for anticipated u/s this am, taking small sip with oral potassium replacement medication. * Flor Rivera MD - 03/19/2019 7:23 AM EDT Inpatient Medicine Progress Note Patient ID: Gabriel Storm is a 43 y.o. male Gabriel Storm is a 43 y.o. male with a PMHX significant for hx of active IVDU (cocaine), Hep C (on mavyret), hx of DRESS with reaction to vancomycin who presents to [facility] with a 2-3 day history of fevers and abdominal pain. Hospital Day 1 day Active Hospital Problems Diagnosis ??? Sepsis ??? Chronic hepatitis C without hepatic coma ??? DRESS syndrome ??? IVDU (intravenous drug user) ??? History of alcohol use Resolved Hospital Problems Diagnosis Date Resolved ??? Bacteremia 03/18/2019 Interval History: -reports hip pain -endorses feeling hot and having chills -denies abdominal pain Active Medications: Scheduled: Scheduled Meds: ??? acyclovir 500 mg Intravenous Q8H ??? acetylcysteine (ACETADOTE) infusion *third dose* 6,000 mg Intravenous Once ??? traZODone 50 mg Oral Nightly ??? sodium chloride 0.9 % 5 mL Intravenous BID ??? enoxaparin 40 mg Subcutaneous Nightly ??? piperacillin-tazobactam 3.375 g Intravenous Q8H ??? DAPTOmycin 6 mg/kg/dose (Adjusted) Intravenous Q24H ??? nicotine 1 patch Transdermal Daily And ??? Patch Verification 1 patch Transdermal BID And ??? nicotine 1 patch Transdermal Daily Continuous: Continuous Infusions: ??? lactated Ringers 100 mL/hr (03/19/19 05) PRNs: PRN Meds:.sodium chloride 0.9 %, lidocaine Vitals: Last value Range last 24 hrs Temperature Temp: (!) 38.8 ??C (101.8 ??F) Temp: [37.3 ??C (99.1 ??F)-38.8 ??C (101.8 ??F)] Heart Rate Heart Rate: (!) 106 Heart Rate: [90-106] Blood Pressure BP: 122/73 BP: (112-122)/(72-74) Respiratory Rate Resp: 28 Resp: [16-28] SpO2 SpO2: 94 % SpO2: [94 %-97 %] Ins/Outs: Intake/Output Summary (Last 24 hours) at 03/19/2019 0743 Last data filed at 03/19/2019 0645 Gross per 24 hour Intake 3430 ml Output 2100 ml Net 1330 ml Patient Vitals for the past 168 hrs: Weight 03/18/19 2146 60.2 kg (132 lb 11.5 oz) Physical Exam: General: alert and oriented, conversant male appears in discomfort. HEENT: EOMI, PERRL. Mild scleral icterus Neck: Supple, normal ROM, no JVD appreciated Heart: 2/6 SALMA best heard throughout precordium Lungs: No increased WOB; CTAB, no rhonchi/wheezes/rales Abdomen: Soft, mild tenderness to palpation in RUQ and epigastrium. Extremities: Clubbing noted bilateral. No peripheral edema. Neuro: AOx3, non-focal, CN II-XII intact Skin: Dry and diffusely hot and erythematous. Blanching skin diffusely and appears to be flushed without focal irritation. ?? Labs: Recent Labs 03/19/19 0701 03/18/19 2300 WBC 5.6 5.8 HGB 13.3* 13.2* PLATELET 151 164 Recent Labs 03/19/19 0701 03/18/19 2300 NA 135 138 K 4.2 3.3* CL 102 102 CO2 21* 24 BUN 7* 10 CREATININE 0.67* 0.82 Recent Labs 03/19/19 0701 03/18/19 2300 CALCIUM 8.2* 8.1* MAGNESIUM 0.70 -- Mg 0.70 -> 2 g mag sulfate Recent Labs 03/19/19 0701 03/18/19 2300 AST 3,050* 3,255* ALT 4,010* 3,986* ALKPHOS 267* 276* BILITOT 4.6* 4.8* Coags Lab Results Component Value Date INR 1.6 03/19/2019 PT 18.1 (H) 03/19/2019 PTT 32 03/19/2019 Results for GABRIEL STORM ( ) as of 03/19/2019 07:27 Ref. Range 03/18/2019 23:00 CRP Latest Ref Range: <=4.9 mg/L 64.7 (H) Results for GABRIEL STORM ( ) as of 03/19/2019 12:00 Ref. Range 03/19/2019 07:01 03/19/2019 09:35 LDH Latest Ref Range: 110 - 220 unit/L 905 (H) 772 (H) No results for input(s): TROPONINT, CK in the last 168 hours. No results for input(s): PHART, HGJ8EFZ, PO2ART, KHH8NVP in the last 168 hours. Results for GABRIEL STORM ( ) as of 03/19/2019 08:49 Ref. Range 03/18/2019 23:00 Ceruloplasmin Latest Ref Range: 15.0 - 30.0 mg/dL 30.0 Acetaminophen level <5 U tox positive for cocaine and cannibinoids Microbiology: Results for GABRIEL STORM ( ) as of 03/19/2019 12:00 Ref. Range 03/18/2019 23:00 HIV-1/2 Ab and Ag Latest Ref Range: Negative Negative Hepatitis A Ab Latest Ref Range: Negative Indeterminate (A) HepB Surface Ab Quant Latest Units: IU/L <3.5 HepB Surface Ab Unknown Negative Hep B Core Ab Latest Ref Range: Negative Positive (A) Imaging Studies: None New Cardiovascular Studies: None New Assessment: Gabriel Storm is a 43 y.o. male with a PMHX significant for hx of active IVDU (cocaine), Hep C (on mavyret), hx of DRESS with reaction to vancomycin who presents to [facility] with a 2-3 day history of fevers and abdominal pain. Patient presented with mild RUQ/Epigastric abdominal pain and seemingly acute liver failure with transaminitis in the thousands; INR wnl. Specific etiologies include Tylenol toxicity, acute viral hepatitis, Budd-Chiari, Autoimmune hepatitis, acute Hank's disease. Will undergo RUQ U/S with dopplers to exclude Budd-Chiari. Due to unknown etiology of liver failure, he was initiated on NAC protocol, which has shown to be beneficial even in cases of non-acetaminophen toxicity acute liver failure. Low possibility of shock liver, though still plausible. Spoke briefly with GI tonight and appreciate their involvement. Total Hep B core antibody is positive - we have added on core IgM. Additionally, given that his Hepatitis surface antibodies are negative, his acute liver failure could represent acute hepatitis B virus infection. His acetamipnophen level and ceruoplasmin levels are unremarkable, making tylenol toxicity and Hank's disease unlikley Finally, fevers in the setting of IVDU and previous ?endocarditis/bacteremia is again concerning for endocarditis with possible liver abscesses. Will get 2nd read from OSH and cover with Daptomycin/Zosyn. Patient has been noted to have DRESS syndrome from Vancomycin (which is known to cause DRESS at a high rate). Have also ordered TTE. Will need OSH records from previous admission and further investigation into fevers. Spoke with GI in regards to empiric viral coverage with IV acyclovir and will start tonight given level of significant transaminitis. ?? Plan: # Acute Liver Failure # Transaminitis in the thousands DDx includes Tylenol toxicity, acute viral hepatitis, Budd-Chiari, Autoimmune hepatitis, acute Hank's disease - GI consulted, appreciate reccs - 2nd read of OSH CT - NPO - NAC protocol, however, limited quantities of IV NAC. Will give loading dose as IV, then transition to oral NAC and pharmacy will try to obtain IV NAC - Tylenol level wnl - CMV - EBV - HSV - HIV negative - Hep A, B, C -positive Hep B core Ab -negative Hep surface Ab -hep A ab indeterminate - REGI/ASMA - ESR/CRP elevated - Ceruloplasmin wnl - RUQ w/ dopplers ?? # Fevers Unknown if related to TONE - Daptomycin 6mg/kg Q24 -CK level - Zosyn 3.375mg Q8 - Acyclovir 500mg Q8 until viral studies return - TTE - BCx x2, F[facility] - [facility] endocarditis/bacteremia in 2018 - UDS positive for cocaine and cannabinoids ?? # IVDU # ?Homelessness # Tobacco Use disorder - Social work consult - BIT team consult - Nicotine patch ?? # Routine - DVT PPx: Lovenox - GI PPx: None - Bowel meds: None - Code Status: FULL Flor Rivera MD PGY1, Internal Medicine 03/19/2019 Associated attestation - Franklin Andrade III, MD - 03/19/2019 1:20 PM EDT Attending Attestation Please see Dr Rivera's note for details of the patient history of presentation and data. I have discussed, reviewed and agree with the documented History, Physical findings, Assessment and Plan of care. I have examined the patient myself and personally reviewed all studies. In addition, I certify thatI am a D-H credentialed attending provider with admitting privileges and that the patient meets or has met medical necessity to require an inpatient IPI level of care meeting a minimum of two midnights or is on the [facility] inpatient only procedure list (status C) due to: acute liver failure, concern for infection/sepsis documented in this encounter H&P Notes * Haris Jean X - 03/18/2019 9:52 PM EDT HOSPITAL MEDICINE HISTORY & PHYSICAL EXAM Date of Admission: 03/18/2019 ( Hospital Day 0 days ) Responsible Attending: Ky Osman MD PCP: Aileen Macias APRN PCP#: [phone] CC: Fevers Patient Active Problem List Diagnosis Code ??? Sepsis A41.9 ??? Chronic hepatitis C without hepatic coma B18.2 ??? DRESS syndrome L27.0, D72.1, T50.905A ??? IVDU (intravenous drug user) F19.90 ??? History of alcohol use Z87.898 History of Present Illness: Gabriel Storm is a 43 y.o. male with a PMHX significant for hx of active IVDU (cocaine), Hep C (on mavyret), hx of DRESS with reaction to vancomycin who presents to [facility] with a 2-3 day history of fevers and abdominal pain. 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 He notes that he developed mild, nagging abdominal pain in his RUQ/Epigastrium night, but did not think much of it. He took tylenol as needed to dull the pain.Looking back, he has also noted anorexia around this time with decreased appetite, but no nausea orvomiting. Patient then rapidly developed fevers/chills/rigors on Tuesday shortly after waking up. Headditionally was fatigued and malaised for much of the day and also had dizziness and lightheadedness as well. Furthermore, he endorses a mild holo-cranial headache at this time. No SOB or chest pain. No palpitations. No cough and no urinary symptoms. Due to his multiple concerns, he presented to [facility] ED. Patient states that he last used cocaine a couple of weeks ago and smokes 0.5- 1ppd of tobacco andsmokes marijuana as well. He takes tylenol sparingly and has ramped up usage in the past week due to abdominal pain (2-3 doses a day). He last drank alcohol heavily last summer and does not drink at all recently (reticent to specify amount at this point). 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 43yo ED at [facility], h/o IVDU, Hep C. h/o DRESS with vancomycin. fever 104, jaundice, dilated gallbladder, AST/ALT 4000, Bili 6. CT a/p - enlarged GB, dilated ducts, cholecystic fluids. normal LFTs 1 month ago. lactate 2.2 VSS. 104, HR 120, resp status. Coags pending - WBC 12 4% bands. Cefepime and dapto. 3L IVF. oliguric. BUN/Cr 10/0.9. Accepted ISCU. OSH Course: Vitals: 39.6C, HR 100, BP 96/62, RR 20, 98% on RA Pertinent labs: CBC: 5.28/15.9/181 BMP: Cr 0.95, AG 11, lactate 2.2 LFTs: Alb 3.5, Tbili 5.9, AST 3475, ALT 5028, CRP 7.22, ESR 34 CT below OSH Interventions Cefepime Daptomycin 2L IVF Tylenol 650mg x1 ROS: ?? GENERAL ?? HEENT ?? COR ?? PULM All negative All negative X?? All negative X?? All negative ?? Weight loss ??X Headache Chest Pain ?? Non-productive cough ?? Weight gain ?? Vision change ?? Palpitations ?? Productive cough ??X Fevers ?? Sinus congestion ?? Orthopnea ?? Wheezing X?? Chills ?? Hoarseness ?? Leg edema ?? Hemoptysis ?? Night sweats ?? Epistaxis ?? Paroxysmal nocturnal dyspnea ?? Pleuritic pain X?? Fatigue ? Syncope ?? SOB ? Claudication ?? POOLE ? MSK ?? RENAL ?? ENDO ?? GI X All negative X All negative X All negative All negative ?? Arthralgias ?? Frequency ?? Heat intolerance ?? Blood in stool ?? Myalgias ?? Urgency ?? Cold intolerance ?? Dysphagia ?? Weakness ?? Hematuria ?? Polydipsia ?? Odynophagia ?? Stiffness ?? Flank pain ?? Polyphagia ??X Abdominal discomfort ? Dysuria ?? Cushingoid ?? Constipation ? Foamy urine ? Diarrhea ? Discharge ? Nausea/Vomiting ? LYMPH ?? SKIN ?? NEURO ?? PSYCH X All negative X All negative X All negative X All negative ?? Swollen nodes ?? Rash ?? Seizures ?? Depressed affect ?? Tender nodes ?? Ulcers ?? Tremors ?? Occupational stress ?? Diffuse nodes ?? Bruising ?? Spasticity ?? Anxiety ?? Local nodes ?? Tanned skin ?? Focal weakness ?? Insomnia ?? Night sweats ?? Telangiectasias ?? Diplopia ? Paresthesias ? Dizziness ? Past Medical History: Past Medical History: Diagnosis Date ??? Alcohol use ??? Bacteremia At [facility] Past Surgical History: No past surgical history on file. Medications: No current facility-administered medications on file prior to encounter. Current Outpatient Medications on File Prior to Encounter Medication Sig Dispense Refill ??? traZODone (DESYREL) 50 mg Tablet Take 50 mg by mouth nightly. ??? GLECAPREVIR-PIBRENTASVIR ORAL Take by mouth. ??? oxyCODONE (ROXICODONE) 5 mg immediate release tablet Take 1 tablet by mouth nightly as needed for Pain. 5 tablet 0 Allergies: Allergies Allergen Reactions ??? Vancomycin DRESS syndrome in 2018 ??? Gabapentin Itchiness reported, unknown if anaphylaxis Family History: Family History Problem Relation Age of Onset ??? Multiple Sclerosis Mother Social History: Social History Socioeconomic History ??? Marital status: Single Spouse name: Not on file ??? Number of children: Not on file ??? Years of education: Not on file ??? Highest education level: Not on file Occupational History ??? Not on file Social Needs ??? Financial resource strain: Not on file ??? Food insecurity: Worry: Not on file Inability: Not on file ??? Transportation needs: Medical: Not on file Non-medical: Not on file Tobacco Use ??? Smoking status: Current Every Day Smoker Substance and Sexual Activity ??? Alcohol use: Not on file ??? Drug use: Not on file ??? Sexual activity: Not on file Lifestyle ??? Physical activity: Days per week: Not on file Minutes per session: Not on file ??? Stress: Not on file Relationships ??? Social connections: Talks on phone: Not on file Gets together: Not on file Attends christian service: Not on file Active member of club or organization: Not on file Attends meetings of clubs or organizations: Not on file Relationship status: Not on file ??? Intimate partner violence: Fear of current or ex partner: Not on file Emotionally abused: Not on file Physically abused: Not on file Forced sexual activity: Not on file Other Topics Concern ??? Do You live alone? Not Asked ??? Tobacco in Home Not Asked Social History Narrative Uses cocaine actively Smokes 0.5-1ppd of tobacco Smokes marijuana as well. He last drank alcohol heavily last summer and does not drink at all recently (reticent to specify amount at this point). 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 Physical Exam: Vitals: Most Recent Vitals: 03/18/19 2146 BP: 112/72 Pulse: 90 Resp: 23 Temp: 37.3 ??C (99.1 ??F) SpO2: 95% General: alert, conversant male appears in discomfort. Patient complains of feeling cold even though he is bundled up in 4 blankets HEENT: EOMI, PERRL. Mild scleral icterus Neck: Supple, normal ROM, no JVD appreciated Heart: 1/6 SALMA best heard throughout precordium Lungs: No increased WOB; CTAB, no rhonchi/wheezes/rales Abdomen: Soft, tender to palpation in RUQ and epigastrium. Negative wiseman's sign. Extremities: Clubbing noted bilateral. No peripheral edema. Neuro: AOx3, non-focal, CN II-XII intact Skin: Dry and diffusely hot and erythematous. Blanching skin diffusely and appears to be flushed without focal irritation. Pertinent labs: Recent Labs 03/18/19 2300 WBC 5.8 HGB 13.2* HCT 39.5* PLATELET 164 No results for input(s): INR in the last 168 hours. No results for input(s): NA, K, CL, CO2, BUN, CREATININE in the last 168 hours. No results for input(s): AST, ALT, ALKPHOS, BILITOT, BILIDIR in the last 168 hours. No results for input(s): CALCIUM, MAGNESIUM, PHOS in the last 168 hours. No results for input(s): CK, TROPONINT in the last 168 hours. No results for input(s): TSH in the last 7068 hours. No results for input(s): HA1C in the last 7068 hours. EKG: At OSH, HR 108, Sinus tachycardia with numerous PVCs. No ST-T changes. ?RBBB CT C/A/P Impression: 1. New periportal edema, superimposed intrahepatic ductal dilation cannot be excluded. 2. Gallbladder prominence with pericholecystic fluid. 3. Several fluid filled loops of normal caliber small bowel, some of which demonstrate wall prominence. This can be seen with liver disease or enteritis (infectious, inflammatory, ischemic) 4. Urinary bladder wall prominence 5. Prominent/enlarged lymph nodes in the upper abdomen. Assessment: Gabriel Storm is a 43 y.o. male with a PMHX significant for hx of active IVDU (cocaine), Hep C (on mavyret), hx of DRESS with reaction to vancomycin who presents to [facility] with a 2-3 day history of fevers and abdominal pain. Patient presents with mild RUQ/Epigastric abdominal pain and seemingly acute liver failure with transaminitis in the thousands; INR still pending. Specific etiologies include Tylenol toxicity, acute viral hepatitis, Budd-Chiari, Autoimmune hepatitis, acute Hank's disease and I have started testing for such diseases tonight. Will also need to be NPO for RUQ U/S with dopplers to exclude Budd-Chiari. Due to unknown etiology of liver failure, will initiate NAC protocol, which has shown to be beneficial even in cases of non-acetaminophen toxicity acute liver failure. Low possibility of shock liver, though still plausible. Spoke briefly with GI tonight and appreciate their involvement. Finally, fevers in the setting of IVDU and previous ?endocarditis/bacteremia is again concerning for endocarditis with possible liver abscesses. Will get 2nd read from OSH and cover with Daptomycin/Zosyn. Patient has been noted to have DRESS syndrome from Vancomycin (which is known to cause DRESS at a high rate). Will need OSH records from previous admission and further investigation into fevers.Spoke with GI in regards to empiric viral coverage with IV acyclovir and will start tonight given level of significant transaminitis. Plan: # Acute Liver Failure # Transaminitis in the thousands DDx includes Tylenol toxicity, acute viral hepatitis, Budd-Chiari, Autoimmune hepatitis, acute Hank's disease - Consult to GI - 2nd read of OSH CT - NPO - NAC protocol, however, limited quantities of IV NAC. Will give loading dose as IV, then transition to oral NAC and pharmacy will try to obtain IV NAC tomorrow. - Tylenol level - CMV - EBV - HSV - HIV - Hep A, B, C - REGI/ASMA - ESR/CRP - Ceruloplasmin - RUQ w/ dopplers # Fevers Unknown if related to TONE - Daptomycin 6mg/kg Q24 - Zosyn 3.375mg Q8 - Acyclovir 500mg Q8 until viral studies return - TTE - BCx x2, F/[facility] - [facility] records from endocarditis/bacteremia in 2018 - UDS # IVDU # ?Homelessness # Tobacco Use disorder - Social work consult - BIT team consult - Nicotine patch # Routine - DVT PPx: Lovenox - GI PPx: None - Bowel meds: None - Code Status: FULL - Dispo: FERMÍN Jean M.D. Internal Medicine, PGY-3 p3530 overnight and then Red Team, p4500 thereafter Associated attestation - Ky Osman MD - 03/19/2019 4:22 AM EDT Attending Staff Documentation I personally performed a history and physical of the patient on 03/18/2019 and reviewed all labs andstudies personally. Please see Dr. Jean's documentation for details of the patient history of presentation and data. I have discussed, reviewed and agree with the documented history with ROS, physical findings, labs/studies, assessment and plan of care. Ky Osman Pager #[phone] Hospital Medicine documented in this encounter Miscellaneous Notes * Plan of Care - Magnus Martinez RN - 03/22/2019 6:07 AM EDT Problem: Patient Care Overview Goal: Plan of Care Review Outcome: Ongoing (Interventions Implemented as Appropriate) 03/20/19 0219 03/21/192002 Coping/Psychosocial Plan Of Care Reviewed With -- patient Plan of Care Review Progress no change -- OUTCOME EVALUATION NOTE: OUTCOME SUMMARY: Patient has been sleeping intermittently throughouthte night. VSS. No c/o nausea. Refused PIV just after change of shift (prior one D/C'd). Risk/rationale explained. ([facility]) aware.Refusing masimo. No acute issues noted, overnight. PLAN MOVING FORWARD: Will continue to monitor, offer assistance, and otherwise tx as necessary/ordered INDIVIDUALIZED FALL PREVENTION INTERVENTIONS: Patient-specific fall risk factors per assessment: [current deficits]: generalized weakness Assistance [level of assistance required for transfers and ambulation]: Standby-independent Supervision [direct monitoring required during toileting and ADLs]: arms reach Surveillance [continuous indirect monitoring]: Bed alarm, purposeful rounding Patient-specific fall prevention interventions for sensory deficits provided, if applicable: [X] No CPG GOAL OUTCOME EVALUATION: Goal: Individualization & Mutuality Outcome: Ongoing (Interventions Implemented as Appropriate) 03/19/19193203/20/19 1251 Individualization Patient Specific Goals Advance diet -- Mutuality/Individual Preferences What Anxieties, Fears or Concerns Do You Have About Your Health or Care? -- nothing right now What Questions Do You Have About Your Health or Care? -- none What Information Would Help Us Give You More Personalized Care? -- nonw Goal: Fall Prevention-Safe Patient Handling Outcome: Ongoing (Interventions Implemented as Appropriate) 03/21/19 1147 03/21/192002 Amaya Fall Risk History of Falling -- 0 Secondary Diagnosis -- 15 Ambulatory Aids -- 0 Intravenous Therapy/Heparin/Saline Lock -- 20 Gait/Transferring -- 0 Mental Status -- 0 Score -- 35 OTHER Amaya Fall Risk -- Med Restraint Interventions Safety Promotion/Fall Prevention -- safety round/check completed Positioning Body Position -- independent Activity Activity Type -- activity adjusted per tolerance Activity Assistance Provided -- assistance, stand-by;independent Assistive Device Utilized none -- Goal: Infection Control Outcome: Ongoing (Interventions Implemented as Appropriate) 03/21/192002 Safety Interventions Isolation Precautions standard precautions maintained Infection Prevention rest/sleep promoted Coping Strategies Supportive Measures positive reinforcement provided Goal: Interdisciplinary Rounds/Family Conf Outcome: Ongoing (Interventions Implemented as Appropriate) 03/19/191931 Interdisciplinary Rounds/Family Conf Participants family;nursing;patient;physician Problem: Infection, Risk/Actual (Adult) Goal: Identify Related Risk Factors and Signs and Symptoms Related risk factors and signs and symptoms are identified upon initiation of Human Response Clinical Practice Guideline (CPG) Outcome: Ongoing (Interventions Implemented as Appropriate) 03/19/191931 Infection, Risk/Actual Infection, Risk/Actual: Related Risk Factors skin integrity impairment;sleep disturbance;substance abuse;chronic illness/condition;poor personal hygiene;malnutrition Signs and Symptoms (Infection, Risk/Actual) chills;body temperature changes;pain Goal: Infection Prevention/Resolution Patient will demonstrate the desired outcomes by discharge/transition of care. Outcome: Ongoing (Interventions Implemented as Appropriate) 03/19/191930 Infection, Risk/Actual (Adult) Infection Prevention/Resolution making progress toward outcome * Plan of Care - Rachel Cox RN - 03/21/2019 5:22 PM EDT Problem: Patient Care Overview Goal: Plan of Care Review Outcome: Ongoing (Interventions Implemented as Appropriate) 03/20/1921803/21/19 075 Coping/Psychosocial Plan Of Care Reviewed With -- patient Plan of Care Review Progress no change -- OUTCOME EVALUATION NOTE: OUTCOME SUMMARY: Patient alert and oriented x4; VSS. Patient able to ambulate around unit. Family here to visit patient this afternoon. Patient complains of stomach acid; PRN ordered (see MAR). PLAN MOVING FORWARD: Prepare for discharge tomorrow INDIVIDUALIZED FALL PREVENTION INTERVENTIONS: Patient-specific fall risk factors per assessment: [current deficits]: New environment Assistance [level of assistance required for transfers and ambulation]: independent Supervision [direct monitoring required during toileting and ADLs]: Hands on eyes on Surveillance [continuous indirect monitoring]: Room near RN station Patient-specific fall prevention interventions for sensory deficits provided, if applicable: [X] N/A CPG GOAL OUTCOME EVALUATION: Goal: Individualization & Mutuality Outcome: Ongoing (Interventions Implemented as Appropriate) 03/19/19193203/20/19 1251 Individualization Patient Specific Goals Advance diet -- Mutuality/Individual Preferences What Anxieties, Fears or Concerns Do You Have About Your Health or Care? -- nothing right now What Questions Do You Have About Your Health or Care? -- none What Information Would Help Us Give You More Personalized Care? -- nonw Goal: Fall Prevention-Safe Patient Handling Outcome: Ongoing (Interventions Implemented as Appropriate) 03/21/19 0754 03/21/19 1147 03/21/19 1520 Amaya Fall Risk History of Falling 0 -- -- Secondary Diagnosis 15 -- -- Ambulatory Aids 0 -- -- Intravenous Therapy/Heparin/Saline Lock 20 -- -- Gait/Transferring 0 -- -- Mental Status 0 -- -- Score 35 -- -- OTHER Amaya Fall Risk Med -- -- Restraint Interventions Safety Promotion/Fall Prevention -- -- safety round/check completed Positioning Body Position -- -- independent Activity Activity Type -- activity adjusted per tolerance;ambulated in huang -- Activity Assistance Provided -- independent -- Assistive Device Utilized -- none -- Goal: Infection Control Outcome: Ongoing (Interventions Implemented as Appropriate) 03/21/19 0754 03/21/19 1520 Safety Interventions Isolation Precautions -- standard precautions maintained Infection Prevention -- environmental surveillance performed Coping Strategies Supportive Measures active listening utilized -- Problem: Infection, Risk/Actual (Adult) Goal: Identify Related Risk Factors and Signs and Symptoms Related risk factors and signs and symptoms are identified upon initiation of Human Response Clinical Practice Guideline (CPG) Outcome: Ongoing (Interventions Implemented as Appropriate) 03/19/19 193 Infection, Risk/Actual Infection, Risk/Actual: Related Risk Factors skin integrity impairment;sleep disturbance;substance abuse;chronic illness/condition;poor personal hygiene;malnutrition Signs and Symptoms (Infection, Risk/Actual) chills;body temperature changes;pain Goal: Infection Prevention/Resolution Patient will demonstrate the desired outcomes by discharge/transition of care. Outcome: Ongoing (Interventions Implemented as Appropriate) 03/19/19 193 Infection, Risk/Actual (Adult) Infection Prevention/Resolution making progress toward outcome * Advance Care Plan Note - Nurys Alatorre MSW - 03/21/2019 4:01 PM EDT ADVANCE DIRECTIVE NOTE Objective: TOUR NARRATOR requested by ICU TOUR NARRATOR to follow up with patient to review and complete Advance Directives. MD team confirm patient has capacity. Patient has appointed his mother Lizeth as primary DPOA-HC and his ex-/friend Delmy as alternate. Copies made and provided. A copy will be scanned into patient's chart. 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 History of alcohol and IVDU. Mr. Storm is A&Ox4, pleasant, and cooperative, full range of affect, reports his mood as So so, no apparent signs or symptoms of alcohol withdrawal, denies AH/VH, denies SI/HI. Mr. Storm, who struggled to recall specific time frames when relating his substance use history, described a history of alcohol use that began with occasional use in his teens and progressed to more frequent use in his 20s. He reports a period of heavy drinking from about age [age]. He reports a few periods of abstinence of a month or two with court mandated counseling from DUI case. He reportsquitting alcohol last May and has relapse once or twice since then and reports his last drink was 3 weeks ago. He is motivated to abstain from alcohol use with court mandated counseling after receiving a second DUI. He denies the need for residential or IOP treatment at this time. Mr. Storm described a history of IVDU that began some years ago and includes a remote history of IV heroin use and more recent history of IV cocaine and Ritilin use. He reports his last IVDU was about a year ago. He reports more recent and ongoing smoking of crack cocaine with his last use a weekago. He denies being motivated to stop smoking crack I will probably continue to do it. He plans to continue court mandated counseling and denies the need for additional substance use treatment resources at this time but agreed to have them placed in his discharge instructions. He reports regularcannabis/CBD use and plans to continue in order to curb his tobacco use. He would like to continue discussion with primary team about starting Chantix for smoking cessation when medically appropriate- primary team is aware. 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 History of alcohol and IVDU. No apparent signs orsymptoms of alcohol withdrawal, no acute safety concerns. Plans to abstain from alcohol use with court mandated counseling. Does not plan to abstain from crack cocaine smoking. Additional substance use treatment and relapse prevention resources were placed in his discharge instructions. Plans to continue cannabis/CBD use to curb tobacco use and would like to speak with primary team about starting Chantix when medically appropriate. Interventions delivered: Mindfulness Based Stress Reduction Motivational interviewing Plan: 1. Patient plans to abstain from alcohol use with court mandated counseling. 2. Patient does not plan to abstain from smoking crack cocaine. 3. Patient plans to continue cannabis/CBD use to curb tobacco use. 4. Patient plans to discuss starting Chantix with primary team when medically approprriate. Medication Assisted Treatment Plan (select yes if referral reason indicates AUD, OUD or LEWIS - other): Yes. Substance use of focus: Alcohol and Other: cocaine. Discharge Planning Needs: Substance use treatment and relapse prevention resources were placed in discharge instructions. Time spent with the patient (min):30 minutes Time spent on case coordination (min): 15 minutes * Med Student Progress Note - Scott Patel - 03/21/2019 7:30 AM EDT Inpatient Hospital Medicine Progress Note Active Hospital Problems Diagnosis ??? Sepsis ??? Chronic hepatitis C without hepatic coma ??? DRESS syndrome ??? IVDU (intravenous drug user) ??? History of alcohol use Resolved Hospital Problems Diagnosis Date Resolved ??? Bacteremia 03/18/2019 There are no active non-hospital problems to display for this patient. Total duration of encounter: 3 days Patient ID: Gabriel Storm??is a 43 y.o.??male??with a PMHX significant for hx of active IVDU (cocaine), Hep C (on mavyret), hx of DRESS with reaction to vancomycin who presents to [facility] with a 2-3 day history of fevers and abdominal pain undergoing workup for possible etiology of elevated LFTs. 24 H: - Per nursing note: persistent headache w/ibuprofen, nausea w/ vomit 200ml x 1 - ? Testicular pain - Bx here NGTD Subjective: Feels fine today. Still has persistent headache and now LUQ abdominal pain.Ate dinner and breakfast. Low appetite. 1 BM. Has tried to keep up with fluids. Warming blankets helped with pain. Testicular pain has been present for years. Trouble with ejaculation in past w/blood. PCP aware. No n/v, chest pain, sob, fever. Inpatient Medications: Scheduled Meds: ??? glecaprevir-pibrentasvir 3 tablet Oral Daily with dinner ??? tenofovir 300 mg Oral Daily ??? traZODone 50 mg Oral Nightly ??? sodium chloride 0.9 % 5 mL Intravenous BID ??? enoxaparin 40 mg Subcutaneous Nightly ??? nicotine 1 patch Transdermal Daily And ??? Patch Verification 1 patch Transdermal BID And ??? nicotine 1 patch Transdermal Daily Continuous Infusions: PRN Meds:.ibuprofen, prochlorperazine, sodium chloride 0.9 %, lidocaine Vitals: Last value Range last 24 hrs Temperature Temp: 36.6 ??C (97.9 ??F) Temp: [36.6 ??C (97.9 ??F)-37 ??C (98.6 ??F)] Heart Rate Heart Rate: 63 Heart Rate: [63-100] Blood Pressure BP: 114/69 BP: (109-129)/(62-76) Respiratory Rate Resp: 18 Resp: [15-25] SpO2 SpO2: 98 % SpO2: [95 %-99 %] Ins/Outs: Intake/Output Summary (Last 24 hours) at 03/21/2019 0731 Last data filed at 03/20/2019 1845 Gross per 24 hour Intake 840 ml Output 945 ml Net -105 ml Physical Exam Gen: NAD, resting comfortably HEENT: sclera icteric, neck supple, no LAD, no carotid bruits CV: systolic murmur +1, S1S2, no MRG, 2+radial & posterior tibial, femoral and pedal pulses Pulm: good air movement, CTAB, no wheezing, crackles or rhonchi Abd: epigastric, luq PWP soft, NT/ND, +BS Ext: no peripheral edema, no clubbing, no cyanosis. Skin: warm and dry, no rash or petechiae, areas of hypopig bl UE and torso Neuro: AOx3. no focal deficits grossly noted. CN II-XII intact Labs: Recent Labs 03/21/19 0458 03/20/19 0000 03/19/19 0701 WBC 5.0 5.3 5.6 HGB 13.3* 12.7* 13.3* PLATELET 172 149 151 Recent Labs 03/21/19 0458 03/20/19 0000 03/19/19 0701 NA 140 138 135 K 3.6 3.9 4.2 CL 104 104 102 CO2 25 23 21* BUN 9* 6* 7* CREATININE 0.69* 0.72* 0.67* CALCIUM 8.3* 8.1* 8.2* MAGNESIUM 0.91 0.91 0.70 Recent Labs 03/21/19 0458 03/20/19 0000 03/19/19 0701 PROT 5.7* 5.7* 5.6* ALBUMIN 3.0* 3.0* 2.8* BILITOT 6.9* 4.7* 4.6* AST 1,406* 2,145* 3,050* ALT 2,828* 3,470* 4,010* ALKPHOS 258* 262* 267* Recent Labs 03/19/19 0935 CK 33 Cardiology/Vascular: SUMMER SUMMARY: ?? 1. There is normal global left ventricular systolic function. The quantitative left ventricular ejection fraction by biplane Dietrich's method is 60%. There are no left ventricular segmental wall motion abnormalities. 2. Right ventricular chamber size, wall thickness, and systolic function are within normal limits. 3. There is no hemodynamically significant valve disease. 4. No valvular vegetations noted. Suggest a SUMMER if clinically indicated. 5. See remainder of report for additional findings. EKG INTERPRETATION Final Sinus rhythm with frequent Premature ventricular complexes Right bundle branch block Abnormal ECG No previous ECGs available Imaginnd read CT IMPRESSION Given the lack of perihepatic and pericholecystic inflammatory changes I suspect that findings described above are due to congestive thickening of the gallbladder wall with accompanying periportal edema. This edema may reflect hepatic parenchymal dysfunction. Concomitant adenomyomatosis. No abscess. If there is ongoing concern for occult acuity, HIDA scan is suggested. Diagnostics: Ref. Range 03/18/2019 23:00 03/18/2019 23:15 EBV DNA BY PCR Latest Ref Range: Undetected IU/mL Undetected HCV Viral Load Latest Units: IU/mL <12 Hepatitis A Ab Latest Ref Range: Negative Indeterminate (A) HepB Surface Ab Quant Latest Units: IU/L <3.5 HepB Surface Ab Unknown Negative HepB Surface Ag Latest Ref Range: Negative Positive (A) Hep B Core Ab Latest Ref Range: Negative Positive (A) HSV Type 1 Antibody, IgG Latest Ref Range: Neg Pos (A) HSV Type 2 Antibody, IgG Latest Ref Range: Neg Pos (A) Assessment/Plan: Gabriel Storm??is a 43 y.o.??male??with a PMHX significant for hx of active IVDU (cocaine), Hep C(on mavyret), hx of DRESS with reaction to vancomycin who presents to [facility] with a 2-3 day history of fevers and abdominal pain undergoing workup for etiology of elevated LFTs. Gabriel is being treated for Acute hepatitis B infection. He remains clinically stable with persistent headache and abdominal pain.Along with being treated with tenofovir for hep B, he has restarted his Mavyet for HepC. His hep C viral load was low. He is expressing abdominal pain. Most likely due tocapsule stretching with hepatic inflammation. As HSV antibodies positive and no signs of endocarditis on TTE, discontinued dapto/zosyn and acyclovir. Spoke with GI re length of treatment with Tenofovir. The recommend having him remain on dose of tenofovir until follow up with GI, where he will be reassessed. They are ok with discharge if patient improving clincially and medicine team feels it is appropriate for discharge. If patient shows improve ment with abdominal pain, po intake and continues to have negative growth on culture with downtrending LFT, approp for discharge most likely tomorrow or following day. Awaiting BID consult. Slight hypoK this morning, ordered K pill. Testicular pain will be mentioned in DC summary for PCP follow up. Plan: # Acute Liver Failure, Hep B Infection # Downtrending Transaminitis in the thousands - continue tenofovir 300mg - continue Mavyret for Hep C - awaiting HepB viral load - monitor abd pain, po intake - GI following - LFT trending down - Off NAC protocol, however, limited quantities of IV NAC. Will give loading dose as IV, then transition to oral NAC and pharmacy will try to obtain IV NAC - Tylenol level??wnl -??HSV (ok to stop acyclovir, will restart if positive) -??Hep A, B, C ?-positive Hep B core Ab ?-negative Hep surface Ab ?-hep A ab indeterminate -??REGI/ASMA -??ESR/CRP??elevated -??Ceruloplasmin??wnl -Working on getting collateral from patients PCP in [facility]?? -Daily CMP, INR -Monitor closely for signs of encephalopathy ?? # Fevers - no longer febrile, no leukocytosis - d/c Daptomycin 6mg/kg Q24 - d/c Zosyn 3.375mg Q8 - BCx x2, F/U [facility] BCx -??UDS??positive for cocaine and cannabinoids HypoK - 40 meq potassium (03/21) ?? # IVDU # ?Homelessness # Tobacco Use disorder - BID consult - Social work consult - Nicotine patch ?? # Routine - DVT PPx:??Lovenox - Diet - full - GI PPx:??None - Bowel meds:??None - Code Status: FULL Scott Patel 03/21/2019 * Plan of Care - Ekta Pitt RN - 03/21/2019 4:07 AM EDT Problem: Patient Care Overview Goal: Plan of Care Review Outcome: Ongoing (Interventions Implemented as Appropriate) 03/20/19 02103/20/192055 Coping/Psychosocial Plan Of Care Reviewed With -- patient Plan of Care Review Progress no change -- OUTCOME EVALUATION NOTE: OUTCOME SUMMARY: Pt A+Ox4, VSS over shift. Pt sleeping between care, assessment as filed. See MAR for PRN medicationadministrations. No acute events, will continue to monitor and page with updates. PLAN MOVING FORWARD: Continue workup for liver failure, hepatitis tx INDIVIDUALIZED FALL PREVENTION INTERVENTIONS: Patient-specific fall risk factors per assessment: [current deficits]: Weakness, IV access Assistance [level of assistance required for transfers and ambulation]: SBA Supervision [direct monitoring required during toileting and ADLs]: Independent Surveillance [continuous indirect monitoring]: Purposeful hourly rounding, call daniel within reach, rings appropriately, room near unit station, bed alarm set Patient-specific fall prevention interventions for sensory deficits provided, if applicable: [X] N/A CPG GOAL OUTCOME EVALUATION: * Plan of Care - Mauro Sellers RN - 03/20/2019 7:09 PM EDT Problem: Patient Care Overview Goal: Plan of Care Review Outcome: Ongoing (Interventions Implemented as Appropriate) 03/20/19 0219 03/20/19 0730 Coping/Psychosocial Plan Of Care Reviewed With -- patient Plan of Care Review Progress no change -- OUTCOME EVALUATION NOTE: OUTCOME SUMMARY: Pt arrived from ISCU and settled to room. Pt continuing to be intermittently nauseas and having headaches. Vomiting 200ml x1. Home med delivered from mother, sent to pharmacy and now in med drawer. Pt expressing concern about taking his home mayvret and having hep C and hep B. Team and Pharmacy made aware, will discuss in AM. From [facility] Hepatitis B virus reactivation: [US Boxed Warning]: Hepatitis B virus (HBV) reactivation has been reported in hepatitis C virus (HCV)/HBV coinfected patients who were receiving or had completed treatment with HCV direct-acting antivirals and were not receiving HBV antiviral therapy; some cases have resulted in fulminant hepatitis, hepatic failure, and . Test all patients for evidence of current or prior HBV infection prior to initiation of treatment; monitor HCV/HBV co-infected patients for hepatitis flare or HBV reactivation during treatment and post-treatment follow-up. Initiate treatment for HBV infection as clinically indicated. HBV reactivation has been reported in HBsAg positive patients and in patients with serologic evidence of resolved HBV infection (ie, HBsAgnegative and anti-HBc positive) and is characterized by an abrupt increase in HBV replication manifested as a rapid increase in serum HBV DNA level; reappearance of HBsAg may occur in patients with resolved HBV infection. Risk of HBV reactivation may be increased in patients receiving certain immunosuppressants or chemotherapeutic agents. PLAN MOVING FORWARD: Manage headache pain, nausea, INDIVIDUALIZED FALL PREVENTION INTERVENTIONS: Patient-specific fall risk factors per assessment: [current deficits]: gen weakness, IV Assistance [level of assistance required for transfers and ambulation]: SBA Supervision [direct monitoring required during toileting and ADLs]: Arms reach Surveillance [continuous indirect monitoring]: Masimo, bed alarm, environmental mods Patient-specific fall prevention interventions for sensory deficits provided, if applicable: [X] Yes CPG GOAL OUTCOME EVALUATION: Goal: Individualization & Mutuality Outcome: Ongoing (Interventions Implemented as Appropriate) 03/19/19 1933 03/20/19 1251 Individualization Patient Specific Goals Advance diet -- Mutuality/Individual Preferences What Anxieties, Fears or Concerns Do You Have About Your Health or Care? -- nothing right now What Questions Do You Have About Your Health or Care? -- none What Information Would Help Us Give You More Personalized Care? -- nonw Goal: Fall Prevention-Safe Patient Handling Outcome: Ongoing (Interventions Implemented as Appropriate) 03/20/19 1300 03/20/19 1325 03/20/19 1407 Amaya Fall Risk History of Falling -- -- 0 Secondary Diagnosis -- -- 15 Ambulatory Aids -- -- 0 Intravenous Therapy/Heparin/Saline Lock -- -- 20 Gait/Transferring -- -- 0 Mental Status -- -- 0 Score -- -- 35 OTHER Amaya Fall Risk -- -- Med Restraint Interventions Safety Promotion/Fall Prevention -- -- -- Positioning Body Position -- -- -- Activity Activity Type -- activity adjusted per tolerance -- Activity Assistance Provided assistance, 1 person -- -- Assistive Device Utilized none -- -- 03/20/19 1541 Amaya Fall Risk History of Falling -- Secondary Diagnosis -- Ambulatory Aids -- Intravenous Therapy/Heparin/Saline Lock -- Gait/Transferring -- Mental Status -- Score -- OTHER Amaya Fall Risk -- Restraint Interventions Safety Promotion/Fall Prevention safety round/check completed Positioning Body Position independent Activity Activity Type -- Activity Assistance Provided -- Assistive Device Utilized -- Goal: Infection Control Outcome: Ongoing (Interventions Implemented as Appropriate) 03/20/19 0730 03/20/19 1541 Safety Interventions Isolation Precautions -- standard precautions maintained Infection Prevention -- environmental surveillance performed Coping Strategies Supportive Measures active listening utilized -- * Med Student Progress Note - Scott Patel E - 03/20/2019 7:40 AM EDT Inpatient Hospital Medicine Progress Note Active Hospital Problems Diagnosis ??? Sepsis ??? Chronic hepatitis C without hepatic coma ??? DRESS syndrome ??? IVDU (intravenous drug user) ??? History of alcohol use Resolved Hospital Problems Diagnosis Date Resolved ??? Bacteremia 03/18/2019 There are no active non-hospital problems to display for this patient. Total duration of encounter: 2 days Patient ID: Gabriel Storm??is a 43 y.o.??male??with a PMHX significant for hx of active IVDU (cocaine), Hep C (on mavyret), hx of DRESS with reaction to vancomycin who presents to [facility] with a 2-3 day history of fevers and abdominal pain undergoing workup for possible etiology of elevated LFTs. 24 H: -TTE r/o endocarditis , negative -NGTD on blood ccx here and [facility] -HepB core and surface antigen positive -Nursing noted PVC's, patient was given 2 gm Mag IV @1030 Subjective: - Says he is feeling better today - Reports hip pain controlled with tordol he received last night - Very hungry, wants to eat Inpatient Medications: Scheduled Meds: ??? acyclovir 500 mg Intravenous Q8H ??? tenofovir 300 mg Oral Daily ??? traZODone 50 mg Oral Nightly ??? sodium chloride 0.9 % 5 mL Intravenous BID ??? enoxaparin 40 mg Subcutaneous Nightly ??? piperacillin-tazobactam 3.375 g Intravenous Q8H ??? DAPTOmycin 6 mg/kg/dose (Adjusted) Intravenous Q24H ??? nicotine 1 patch Transdermal Daily And ??? Patch Verification 1 patch Transdermal BID And ??? nicotine 1 patch Transdermal Daily Continuous Infusions: PRN Meds:.sodium chloride 0.9 %, lidocaine Vitals: Last value Range last 24 hrs Temperature Temp: 36.8 ??C (98.2 ??F) Temp: [36.7 ??C (98.1 ??F)-38.1 ??C (100.6 ??F)] Heart Rate Heart Rate: 78 Heart Rate: [78-102] Blood Pressure BP: 113/67 BP: (96-120)/(55-75) Respiratory Rate Resp: 24 Resp: [12-28] SpO2 SpO2: 98 % SpO2: [94 %-99 %] Ins/Outs: Intake/Output Summary (Last 24 hours) at 03/20/2019 0740 Last data filed at 03/20/2019 0627 Gross per 24 hour Intake 3356 ml Output 3875 ml Net -519 ml Physical Exam Gen: NAD, resting comfortably HEENT: sclera-icteric b/l, neck supple, no LAD, no carotid bruits CV: RRR, S1S2, no MRG Pulm: good air movement, CTAB, no wheezing, crackles or rhonchi Abd: soft, NT/ND, +BS Ext: no peripheral edema, no clubbing, no cyanosis. Skin: warm and dry, no rash or petechiae, patches of depigmentation on torso and hands Neuro: AOx3. no focal deficits grossly noted. CN II-XII intact Labs: Recent Labs 03/20/19 0000 03/19/19 0701 03/18/19 2300 WBC 5.3 5.6 5.8 HGB 12.7* 13.3* 13.2* PLATELET 149 151 164 Recent Labs 03/20/19 0000 03/19/19 0701 03/18/19 2300 NA 138 135 138 K 3.9 4.2 3.3* CL 104 102 102 CO2 23 21* 24 BUN 6* 7* 10 CREATININE 0.72* 0.67* 0.82 CALCIUM 8.1* 8.2* 8.1* MAGNESIUM 0.91 0.70 -- Recent Labs 03/20/19 0000 03/19/19 0701 03/18/19 2300 PROT 5.7* 5.6* 5.8* ALBUMIN 3.0* 2.8* 3.1* BILITOT 4.7* 4.6* 4.8* AST 2,145* 3,050* 3,255* ALT 3,470* 4,010* 3,986* ALKPHOS 262* 267* 276* Recent Labs 03/19/19 0935 CK 33 Ref. Range 03/18/2019 23:00 REGI Latest Ref Range: Neg Neg CRP Latest Ref Range: <=4.9 mg/L 64.7 (H) Recent Labs 03/20/19 0000 03/19/19 0516 PT 16.7* 18.1* PTT -- 32 INR 1.5 1.6 Cardiology/Vascular: TTE 1. There is normal global left ventricular systolic function. The quantitative left ventricular ejection fraction by biplane Dietrich's method is 60%. There are no left ventricular segmental wall motion abnormalities. 2. Right ventricular chamber size, wall thickness, and systolic function are within normal limits. 3. There is no hemodynamically significant valve disease. 4. No valvular vegetations noted. Suggest a SUMMER if clinically indicated. Imaging: CT Abdomen/Pelvis 2nd Read IMPRESSION Given the lack of perihepatic and pericholecystic inflammatory changes I suspect that findings described above are due to congestive thickening of the gallbladder wall with accompanying periportal edema. This edema may reflect hepatic parenchymal dysfunction. Concomitant adenomyomatosis. No abscess. If there is ongoing concern for occult acuity, HIDA scan is suggested. ?? Diagnostics: Ref. Range 03/18/2019 23:39 Color UA Latest Ref Range: Yellow Pili Appearance UA Latest Ref Range: Clear Clear Spec Russell UA Latest Ref Range: 1.002 - 1.030 1.031 (H) pH UA Latest Ref Range: 5.0 - 8.0 6.0 Protein UA Latest Ref Range: Negative mg/dL Negative Glucose UA Latest Ref Range: Negative mg/dL Negative Ketones UA Latest Ref Range: Negative mg/dL Negative Bilirubin UA Latest Ref Range: Negative mg/dL Small (A) Urobilinogen UA Latest Ref Range: Normal mg/dL >=4.0 (A) Blood UA Latest Ref Range: Negative mg/dL Negative Leukocytes UA Latest Ref Range: Negative mcL Negative Nitrite UA Latest Ref Range: Negative Negative Culture Reflexed Unknown No Ref. Range 03/18/2019 23:00 BLOOD CULTURE Unknown Rpt HIV-1/2 Ab and Ag Latest Ref Range: Negative Negative Hepatitis A Ab Latest Ref Range: Negative Indeterminate (A) HepB Surface Ab Quant Latest Units: IU/L <3.5 HepB Surface Ab Unknown Negative HepB Surface Ag Latest Ref Range: Negative Positive (A) Hep B Core Ab Latest Ref Range: Negative Positive (A) Assessment/Plan: Gabriel Storm is a 43 y.o. male??with a PMHX significant for??hx of active IVDU (cocaine), Hep C (on mavyret), hx of DRESS with reaction to vancomycin who presents to [facility] with a 2-3 day history offevers and abdominal pain. Patient presented with mild RUQ/Epigastric abdominal pain and seemingly acute liver failure with transaminitis in the thousands; INR wnl. Due to unknown etiology of liver failure, he was initiated on NAC protocol. At this time, the leading cause pf presentation would be an acute Hep B infection given positive Hep b core ab and surface antigen. Given symptoms, this is likely acute however Heb b viral DNA would be helpful in solidifying diagnosis to demonstrate viral load. Started on tenofovir for Hep B acute.Of note, patient also has Hep C that is being treated since 6 weeks ago. Mother is bringing in medication for patient today. Given titers/labs, hank, acet tox, hsv, hep a, autoimmune, shock liver, bud chiari less likely. When hsv titer returns, will dc acyclovir if negative. There was also a concern endocarditis with possible liver abscesses. Patient reported pmhx of endocarditis. Started Daptomycin/Zosyn to cover. TTE has since returned negative. [facility] contacted that patient was never dx with endocarditis, only treated for suspected endocarditis. With these findings, hep B serology and afebrile, the dapto/zosyn will be discontinued. Last night patient had PVC on tele. At time, lytes were within normal limits. Unlikely that electrolyte disturbance is the cause. Patient history of recent IVDU unclear, but possible drug intox causing the PVC. Patient mentioned recent injection of ritalin, which would cause increased sympathetic stimulation possibly causing PVC. Plan: # Acute Liver Failure # Transaminitis in the thousands - Leading ddx is acute hep B - started tenofovir 300mg - awaiting HepB viral load - GI consulted, appreciate reccs - NAC protocol, however, limited quantities of IV NAC. Will give loading dose as IV, then transition to oral NAC and pharmacy will try to obtain IV NAC - Tylenol level wnl -??HSV (ok to stop acyclovir, will restart if positive) -??Hep A, B, C -positive Hep B core Ab -negative Hep surface Ab -hep A ab indeterminate -??REGI/ASMA -??ESR/CRP elevated -??Ceruloplasmin wnl -Patient's mother bringing his home supply of Mavyret, would start this back as soon as able -Working on getting collateral from patients PCP in [facility] -F/u HCV and HBV PCR, HBV Core IgM -F/u REGI/ASMA though presentation would be very atypical for AIH -F/u EBV, CMV, HSV, HIV testing -If blood cultures remain negative and he remains afebrile, can consider stopping antibiotics -Daily CMP, INR -Monitor closely for signs of encephalopathy # Fevers - no longer febrile, no leukocytosis - d/c Daptomycin 6mg/kg Q24 - d/c Zosyn 3.375mg Q8 - BCx x2, F/U [facility] BCx -??UDS positive for cocaine and cannabinoids ?? # IVDU # ?Homelessness # Tobacco Use disorder - Social work consult - BIT team consulted - Nicotine patch ?? # Routine - DVT PPx:??Lovenox - Diet - full, IVF discontinued - GI PPx:??None - Bowel meds:??None - Code Status: FULL Scott Patel 03/20/2019 * Plan of Care - Tr Carlos RN - 03/20/2019 2:36 AM EDT Problem: Patient Care Overview Goal: Plan of Care Review Outcome: Ongoing (Interventions Implemented as Appropriate) 03/20/19 0219 Coping/Psychosocial Plan Of Care Reviewed With patient Plan of Care Review Progress no change ?? OUTCOME EVALUATION NOTE: ?? OUTCOME SUMMARY: ?? Patient AO x4, needed some verbal cueing for day of month, otherwise completely intact. Pupils 2 mm, equal and briskly reactive to light. No pronator drift, motor strengths equal @ 5/5 to BUE and BLE, denies numbness or tingling, pulses palpable. Sclera yellow bilaterally, slight jaundice. Liver enzymes down trending this morning with a.m labs. Lungs CTAB, no productive cough present. PIV x2 in place, patient given scheduled IV abx and acetylcysteine as ordered. IVF d/c @ beginning of shift, patient with adequate urine output and has been voiding in bedside urinal. 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 Full liquid diet, has tolerated this overnight after having some nausea during day shift. P atient with generalized headache and bilateral hip pain which he states is from the bed, team down to visualize patient and ordered one time dose of IV Toradol with positive affect. TMAX 37.6. NSR with frequent ectopy. Patient has alarmed for vtach overnight, upon chart review this appears to be a prolonged QRS complex and has not sustained. Patient denies any chest pain, SOB, dizziness, or nausea. Mag WDL with a.m labs @ 0.90 and K 3.9. Team made aware of increased PVC's, patient was given 2 gm Mag IV @1030, 03/19. SBP as low as 96 this evening while at rest, MAP intact @ 65 at that time. Pressure increased to 100/62 with MAP of 71 on recheck. RR WDL, O2 sat >90% while on RA. ?? PLAN MOVING FORWARD: IV abx, mobilize as tolerated, encourage coughing/deep breathing/IS?? INDIVIDUALIZED FALL PREVENTION INTERVENTIONS: ?? Patient-specific fall risk factors per assessment: [current deficits]: IV tubing, SCDs ?? Assistance [level of assistance required for transfers and ambulation]: x1 stand by assist when OOB/repositioning ?? Supervision [direct monitoring required during toileting and ADLs]: Hands on ?? Surveillance [continuous indirect monitoring]: Conchis Monitor, call daniel within reach at all times ?? Patient-specific fall prevention interventions for sensory deficits provided, if applicable: N/A ? CPG GOAL OUTCOME EVALUATION: ? Goal: Individualization & Mutuality 03/19/19 193 Individualization Patient Specific Goals Advance diet Goal: Fall Prevention-Safe Patient Handling 03/19/19 1600 03/19/19199903/20/19 0200 Amaya Fall Risk History of Falling -- 0 -- Secondary Diagnosis -- 15 -- Ambulatory Aids -- 0 -- Intravenous Therapy/Heparin/Saline Lock -- 20 -- Gait/Transferring -- 0 -- Mental Status -- 0 -- Score -- 35 -- OTHER Amaya Fall Risk -- Med -- Restraint Interventions Safety Promotion/Fall Prevention -- -- activity supervised;fall prevention program maintained;nonskid shoes/slippers when out of bed;safety round/check completed Positioning Body Position -- -- independent Activity Activity Type -- -- activity adjusted per tolerance Activity Assistance Provided assistance, 1 person -- -- Assistive Device Utilized none -- -- Goal: Infection Control 03/19/19 0730 03/20/19 0200 Safety Interventions Isolation Precautions -- standard precautions maintained Infection Prevention -- rest/sleep promoted Coping Strategies Supportive Measures active listening utilized;relaxation techniques promoted;self-care encouraged -- Goal: Interdisciplinary Rounds/Family Conf 03/19/191931 Interdisciplinary Rounds/Family Conf Participants family;nursing;patient;physician Problem: Infection, Risk/Actual (Adult) Intervention: Manage Suspected/Actual Infection 03/18/19219903/20/19 020 Prevent/Manage Colorectal Surgical Infection Fever Reduction/Comfort Measures lightweight bedding;lightweight clothing -- Safety Interventions Isolation Precautions -- standard precautions maintained Intervention: Prevent Infection/Maximize Resistance 03/19/191999 Respiratory Interventions Airway/Ventilation Management airway patency maintained;calming measures promoted;pulmonary hygienepromoted * Plan of Care - Mildred Lance RN - 03/19/2019 7:44 PM EDT Problem: Patient Care Overview Goal: Plan of Care Review Outcome: Ongoing (Interventions Implemented as Appropriate) 03/19/191934 Coping/Psychosocial Plan Of Care Reviewed With patient Plan of Care Review Progress progress toward functional goals is gradual OUTCOME EVALUATION NOTE: OUTCOME SUMMARY: Pt resting on and off throughout shift. Pt up in hallways once this shift, gait steady with momentsof unsteadiness. NPO status until this afternoon, Full liquid diet initiated, pt tolerated well. Ptreported pain to head and hips; oxycodone 5 mg administered x1 with good effect. Telemetry NSR-ST with frequent PVCs, 2g Mag administered IV. SUMMER completed this shift. ABD US cancelled. Psych consulted for BIT. Multiple IV sites, intact, no s/s of infiltration. IV antibiotics/fluids. PLAN MOVING FORWARD: Advance diet as tolerated. New medication started (tenofovir). Continue to monitor temperature. INDIVIDUALIZED FALL PREVENTION INTERVENTIONS: Patient-specific fall risk factors per assessment: [current deficits]: Multiple IV infusions, gait unsteady at times, secondary diagnosis, Assistance [level of assistance required for transfers and ambulation]: Assist x1/stand by assist Supervision [direct monitoring required during toileting and ADLs]: Hands on Surveillance [continuous indirect monitoring]: Hourly rounding, room near nurses station, video surveillance, Patient-specific fall prevention interventions for sensory deficits provided, if applicable: [X] Yes CPG GOAL OUTCOME EVALUATION: * Initial Assessments - Fabby Yepez MSW - 03/19/2019 7:48 AM EDT Office of Care Management Initial Assessment GARRETT Lynn reviewed record and discussed patient with Care Team. Source of Information: Patient Introduced self/reviewed role; services accepted. Reason for Hospitalization: Per H&P: Gabriel Storm is a 43 y.o. male with a PMHX significant for hx of active IVDU (cocaine), Hep C (on mavyret), hx of DRESS with reaction to vancomycin who presents to [facility] with a 2-3 day history of fevers and abdominal pain. Past Medical History: Diagnosis Date ??? Alcohol use ??? Bacteremia At [facility] Hospitalizations Within the Past 30 Days: no Anticipated Length Of Stay (If known): unknown Current Decision-Making Capacity: Has capacity Advance Care Planning: No AD on file. 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 Home Environment: ren[place] a [place] friend [place]. States he is able to return therewhen discharged Social & Family Supports/Community Resources: Mom is supportive and lives in [facility] History: reports some depression/anxiety related to current illness Substance Use/Abuse: Per H&P: Patient states that he last used cocaine a couple of weeks ago and smokes 0.5- 1ppd of tobacco andsmokes marijuana as well. He takes tylenol sparingly and has ramped up usage in the past week due to abdominal pain (2-3 doses a day). He last drank alcohol heavily last summer and does not drink at all recently (reticent to specify amount at this point). Other Pertinent/Service Specific Information: Health/Prescription Coverage: Primary Insurance: MEDICAID [place] Secondary Insurance: N/A Prescription Coverage: yes Preferred Pharmacy: [facility] Other: Primary Care Provider: Aileen Macias, SUPERVISOR [employer]ORY [phone] Patient/Caregiver Goals of Treatment: Feel better Potential Needs for Transition of Care: Rehab/SNF: no Home Health: no DME: no Dialysis: no Community Resources: no Transportation: TBD Other: patient reports he has had outpatient antibiotics at [facility] Anticipated Barriers to Discharge/Special Considerations: Patient has a poor social situation. 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 Plan: Follow medical work up and assist in arranging any needed outpatient services A member of the Care Management team will continue to monitor progress, follow for continuity of care and assist with transition of care planning. GARRETT Lynn Pager: [phone] * Consult Note - Jeremy Lim MD - 03/19/2019 6:26 AM EDT GASTROENTEROLOGY & HEPATOLOGY CONSULTATION Initial Consult Note Requesting Provider: Ky Osman MD REASON FOR CONSULTATION Acute liver injury HISTORY OF PRESENT ILLNESS Gabriel Storm is a 43 y.o. year old M with hx of active IVDU, hep C on Mavyret (started 6 weeks ago), presented initially to [facility] with 3 days of fevers and chills. [place] in his usual state of healthuntil 03/15/18 when he started having fevers and chills. Two days ago says he took 4 tylenol pills for the fevers. Symptoms associated with a headache as well and some very vague RUQ discomfort. Says he uses cocaine and last use was 2 weeks ago, also smoke mariajuana and cigarettes as well. Former heavy drinker but says he does not drink at all currently. Denies any supplement use. At [facility] had a fever of 104, ast/alt in 4000's, T bili 6, no INR checked. Had CT that showed enlarged GB, periportal edema, ? dilated IH ducts. Of note had normal LFT's one month prior. WBC was 12 with 4% bands, had a HR of 120, was given 3L of IVF and started on empiric cefepime/dapto given c/f sepsis. On arrival to [facility] he was febrile to 101.8 F, Hr 106, labs notable for WBC 5.8, Hb 13.2, Plt 164, Cr 0.82, ALT 4000, AST 3300, AP 276, TB 4.8, Alb 3.1, INR 1.6, ESR 22, CRP 65, Ceruloplasmin 30, Tylenol <5, Utox + for cannabinoids and cocaine. He was started empirically on NAC protocol as well as IV acyclovir. Currently still feeling very cold. Has ongoing vague abdominal discomfort. Denies any nausea, vomiting, diarrhea, cough. Cannot recall a time where he felt this unwell before. ROS: 10 systems reviewed and positive for those in HPI, otherwise negative PAST MEDICAL/SURGICAL HISTORY: Past Medical History: Diagnosis Date ??? Alcohol use ??? Bacteremia At [facility] MEDICATIONS ??? acyclovir 500 mg Intravenous Q8H ??? acetylcysteine (ACETADOTE) infusion *third dose* 6,000 mg Intravenous Once ??? traZODone 50 mg Oral Nightly ??? sodium chloride 0.9 % 5 mL Intravenous BID ??? enoxaparin 40 mg Subcutaneous Nightly ??? piperacillin-tazobactam 3.375 g Intravenous Q8H ??? DAPTOmycin 6 mg/kg/dose (Adjusted) Intravenous Q24H ??? nicotine 1 patch Transdermal Daily And ??? Patch Verification 1 patch Transdermal BID And ??? nicotine 1 patch Transdermal Daily ??? lactated Ringers 100 mL/hr (03/19/19 05) sodium chloride 0.9 %, lidocaine ALLERGIES Allergies Allergen Reactions ??? Vancomycin DRESS syndrome in 2018 ??? Gabapentin Itchiness reported, unknown if anaphylaxis SOCIAL HISTORY Social History Socioeconomic History ??? Marital status: Single Spouse name: Not on file ??? Number of children: Not on file ??? Years of education: Not on file ??? Highest education level: Not on file Occupational History ??? Not on file Social Needs ??? Financial resource strain: Not on file ??? Food insecurity: Worry: Not on file Inability: Not on file ??? Transportation needs: Medical: Not on file Non-medical: Not on file Tobacco Use ??? Smoking status: Current Every Day Smoker Substance and Sexual Activity ??? Alcohol use: Not on file ??? Drug use: Not on file ??? Sexual activity: Not on file Lifestyle ??? Physical activity: Days per week: Not on file Minutes per session: Not on file ??? Stress: Not on file Relationships ??? Social connections: Talks on phone: Not on file Gets together: Not on file Attends christian service: Not on file Active member of club or organization: Not on file Attends meetings of clubs or organizations: Not on file Relationship status: Not on file ??? Intimate partner violence: Fear of current or ex partner: Not on file Emotionally abused: Not on file Physically abused: Not on file Forced sexual activity: Not on file Other Topics Concern ??? Do You live alone? Not Asked ??? Tobacco in Home Not Asked Social History Narrative Uses cocaine actively Smokes 0.5-1ppd of tobacco Smokes marijuana as well. He last drank alcohol heavily last summer and does not drink at all recently (reticent to specify amount at this point). 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 FAMILY HISTORY Family History Problem Relation Age of Onset ??? Multiple Sclerosis Mother Vitals: 03/18/19 2146 03/19/19 0110 03/19/19 0432 BP: 112/72 122/74 122/73 BP Location (NBP): Left arm Left arm Left arm Patient Position: Lying Lying Lying Pulse: 90 99 (!) 106 Resp: 23 16 28 Temp: 37.3 ??C (99.1 ??F) 37.5 ??C (99.5 ??F) (!) 38.8 ??C (101.8 ??F) TempSrc: Oral Oral Oral SpO2: 95% 97% 94% Weight: 60.2 kg (132 lb 11.5 oz) Height: 165.1 cm (5' 5) PHYSICAL EXAM GENERAL: ill appearing, unkempt HEENT: AT/NC, sclerae icteric, moist mucous membranes CHEST: CTA CARDIAC: tachycardic. Normal S1, S2, no appreciable murmurs. ABDOMEN: Soft, mild ttp in RUQ without rebound or guarding, non-distended, +bs, no HSM EXT: Warm, no edema NEURO: Grossly intact, moves all extremities. No asterixis SKIN: Mild jaundice. LABS: Lab Results Component Value Date Sodium 138 03/18/2019 Potassium 3.3 (L) 03/18/2019 Chloride 102 03/18/2019 CO2 24 03/18/2019 BUN 10 03/18/2019 Creatinine 0.82 03/18/2019 CBC Lab Results Component Value Date WBC 5.8 03/18/2019 Hemoglobin 13.2 (L) 03/18/2019 Hematocrit 39.5 (L) 03/18/2019 Platelets 164 03/18/2019 LFT's Lab Results Component Value Date Alk Phos 276 (H) 03/18/2019 AST 3,255 (H) 03/18/2019 Albumin 3.1 (L) 03/18/2019 Total Bilirubin 4.8 (H) 03/18/2019 ALT 3,986 (H) 03/18/2019 Total Protein 5.8 (L) 03/18/2019 IMAGING: Reviewed in [facility] ENDOSCOPY: Reviewed in [facility] IMPRESSION: 43 y.o. year old M with hx of active IVDU, hep C on Mavyret (started 6 weeks ago), presented initially to [facility] on 03/15/19 with 3 days of fevers and chills, found to have acute liver failure, currentlyno signs of encephalopathy. Most likely etiology of liver injury is viral given his active IVDU. Considerations are acute hep B, infection with a different strain of hep C, EBV, CMV, HSV, hep A. Druginduced liver injury also fits with this picture but he has not started any new medications, does report non-toxic levels of tylenol use recently. No report of hypotension to suggest ischemic liver injury. CT appears to have been done with contrast and does not note any vascular etiology of liver injury (I.e. Budd chiari). No overt evidence of biliary obstruction. Though viral etiology seems mostlikely, his bandemia and high fevers do raise some suspicion for bacterial infection as well, thus he is being covered with broad spectrum antibiotics. MELD-Na score: 18 at 03/19/2019 5:16 AM MELD score: 18 at 03/19/2019 5:16 AM Calculated from: Serum Creatinine: 0.82 mg/dL (Rounded to 1 mg/dL) at 03/18/2019 11:00 PM Serum Sodium: 138 mmol/L (Rounded to 137 mmol/L) at 03/18/2019 11:00 PM Total Bilirubin: 4.8 mg/dL at 03/18/2019 11:00 PM INR(ratio): 1.6 at 03/19/2019 5:16 AM Age: 43 years RECOMMENDATIONS: -Agree with empiric NAC and acyclovir until further testing results -F/u hepatitis A, B, C panel -Check HCV and HBV PCR -F/u REGI/ASMA though presentation would be very atypical for AIH -Check EBV, CMV, HSV, HIV -Agree with empiric abx, f/u blood cultures, urine culture. Would try to obtain [facility] blood culturesas well. -Obtain 2nd read on CT from OSH -F/u RUQ sono with doppler -Daily CMP, INR -Monitor closely for signs of encephalopathy The plan as outlined above was discussed with Dr. Escobar. Jeremy Lim MD Gastroenterology Fellow #[id number] Associated attestation - Alysa Escobar MD - 03/19/2019 3:43 PM EDT ATTENDING ADDENDUM I interviewed and examined Gabriel Storm with Dr. Lim on rounds today. I have discussed the case with him and confirm the history and jain physical findings outlined in this note. The assessment and plan were formulated in discussion with me at the time of this encounter, and I agree with them as documented. However, after personal review of the CT scan both PV and HV appear to be widely patent, and I do not appreciate any ductal dilatation. Therefore, I do not think sonogram would add much. Okay to cancel it. Agree that infectious hepatitis seems most likely with viral etiologies most likely. High fever and bandemia a little atypical for acute infectious viral etiology. Should follow-up blood cultures from [facility]. Continue to support and await serologies and viral studies. Continue acyclovir for now. Kristan Escobar MD [employer] Handdental assisting instructor Co-Director, [facility] Section of Gastroenterology and Hepatology [facility] [place] [address] documented in this encounter Plan of Treatment Scheduled Orders Name Type Priority Associated Diagnoses Orde r Schedule Film Library- Storage Only CT Abdomen & Pelvis Imaging Storage Only Routine Once PRN (for Radian t use) for 1 Occurrences starting 03/18/2019 until 03/18/2019, 1 completed documented as of this encounter Procedures Procedure Name Priority Date/Time Associated Diagnosis Comments CMP W/FASTING GLUCOSE STAT 03/22/2019 3:56 AM EDT HEMOGRAM STAT 03/22/2019 3:56 AM EDT DIFFERENTIAL, AUTOMATED STAT 03/22/2019 3:56 AM EDT PROTHROMBIN TIME STAT 03/22/2019 3:56 AM EDT CBC (WITH DIFF) STAT 03/22/2019 3:56 AM EDT MAGNESIUM STAT 03/22/2019 3:56 AM EDT CMP W/FASTING GLUCOSE STAT 03/21/2019 4:58 AM EDT SCAN, PERIPHERAL BLOOD STAT 9 4:58 AM EDT HEMOGRAM STAT 03/21/2019 4:58 AM EDT DIFFERENTIAL, AUTOMATED STAT 03/21/2019 4:58 AM EDT CBC (WITH DIFF) STAT 03/21/2019 4:58 AM EDT MAGNESIUM STAT 03/21/2019 4:58 AM EDT EKG 12-LEAD STAT 03/20/2019 7:50 PM EDT IVDU (intravenous drug user) CMP W/FASTING GLUCOSE STAT 03/20/2019 12:00 AM EDT SCAN, PERIPHERAL BLOOD STAT 9 12:00 AM EDT HEMOGRAM STAT 03/20/2019 12:00 AM EDT DIFFERENTIAL, AUTOMATED STAT 03/20/2019 12:00 AM EDT PROTHROMBIN TIME STAT 03/20/2019 12:0 0 AM EDT CBC (WITH DIFF) STAT 03/20/2019 12:00 AM EDT MAGNESIUM STAT 03/20/2019 12:00 AM EDT ECHO COMPLETE Routine 03/19/2019 12:58 PM EDT Sepsis, due to unspecified organism IVDU (intravenous drug user) LACTATE DEHYDROGENASE Routine 03/19/2019 9:35 AM EDT CK Routine 03/19/2019 9:35 AM EDT CMP W/FASTING GLUCOSE STAT 03/19/2019 7:01 AM EDT SCAN, PERIPHERAL BLOOD STAT 9 7:01 AM EDT HEMOGRAM STAT 03/19/2019 7:01 AM EDT DIFFERENTIAL, AUTOMATED STAT 03/19/2019 7:01 AM EDT CBC (WITH DIFF) STAT 03/19/2019 7:01 AM EDT MAGNESIUM STAT 03/19/2019 7:01 AM EDT LACTATE DEHYDROGENASE STAT 03/19/2019 7:01 AM EDT APTT STAT 03/19/2019 5:16 AM EDT PROTHROMBIN TIME STAT 03/19/2019 5:16 AM EDT LACTATE, WHOLE BLOOD, SEND TO LAB ([facility] Routine 03/19/2019 12:05 AM EDT COMPLIANCE QUALITY PERFORMANCE ANALYST SCAN 03/19/2019 12:00 AM EDT REQUEST FOR 2ND READ CT ABDOMEN AND PELVIS Routine 03/18/2019 11:49 PM EDT RAPID DRUG SCREEN, URINE (JODI REQUEST) Routine 03/18/2019 11:40 PM EDT RAPID DRUG SCREEN W/O CONFIRMATION, URINE Routine 03/18/2019 11:40 PM EDT URINE HOLD Routine 03/18/2019 11:39 PM EDT URINALYSIS WITH REFLEX CULTURE Routine 03/18/2019 11:39 PM EDT BLOOD CULTURE STAT 03/18/2019 11:15 PM EDT FILM LIBRARY STORAGE ONLY CT ABDOMEN AND PELVIS Routine 03/18/2019 11:11 PM EDT CRP, ACUTE INFLAMMATION Routine 03/18/2019 11:00 PM EDT CMP W/FASTING GLUCOSE STAT 03/18/2019 11:00 PM EDT HEPATITIS B DNA, QUANTITATIVE, PCR Routine 03/18/2019 11:00 PM EDT SCAN, PERIPHERAL BLOOD STAT 9 11:00 PM EDT HEMOGRAM STAT 03/18/2019 11:00 PM EDT DIFFERENTIAL, AUTOMATED STAT 03/18/2019 11:00 PM EDT EBV PCR QUANTITATIVE Routine 03/18/2019 11:00 PM EDT HSV 1 AND 2 IGG ANTIBODIES Routine 03/18/2019 11:00 PM EDT HEPATITIS A ANTIBODY, TOTAL Routine 03/18/2019 11:00 PM EDT CERULOPLASMIN Routine 03/18/2019 11:00 PM EDT HEPATITIS B CORE ANTIBODY, TOTAL Routine 03/18/2019 11:00 PM EDT CMV PCR, QUANTITATIVE Routine 03/18/2019 11:00 PM EDT HEPATITIS C RNA, QUANTITATIVE, PCR Routine 03/18/2019 11:00 PM EDT SMOOTH MUSCLE ANTIBODY Routine 9 11:00 PM EDT HIV SCREEN, 4TH GENERATION ([facility]/CGP/APD/NLH) Routine 03/18/2019 11:00 PM EDT HEPATITIS B SURFACE ANTIBODY Routine 03/18/2019 11:00 PM EDT HEPATITIS B SURFACE ANTIGEN Routine 03/18/2019 11:00 PM EDT BLOOD CULTURE STAT 03/18/2019 11:00 PM EDT SEDIMENTATION RATE Routine 03/18/2019 11 :00 PM EDT CBC (WITH DIFF) STAT 03/18/2019 11:00 PM EDT REGI ANTIBODY SCREEN Routine 03/18/2019 1 1:00 PM EDT ACETAMINOPHEN LEVEL Routine 03/18/2019 1 1:00 PM EDT documented in this encounter Results * Differential, Automated (03/22/2019 3:56 AM EDT) Neutrophils % 63.6 % [facility] Neutr Abs (ANC) 3.20 1.70 - 6.10 x10(3)/[facility] Lymphocytes % 24.3 % [facility] Lymphocytes Abs 1.2 0.9 - 3.2 x10(3)/[facility] Monocytes % 9.7 % [facility] Monocyte Abs 0.5 0.3 - 0.9 x10(3)/[facility] Eosinophils % 1.6 % [facility] Eosinophils Abs 0.1 0.0 - 0.4 x10(3)/[facility] Basophils % 0.6 % [facility] Basophils Abs 0.0 0.0 - 0.1 x10(3)/[facility] Immature Gran % 0.20 % [facility] Comment: Immature granulocytes(IG's)percentage and absolute count will include metamyelocytes, myelocytes, and promyelocytes. Blood smears from CBCs yielding IG's will be scanned manually for concordance. If this scan disagrees with the automated IG or if promyelocytes are noted, a manual differential will be performed. Andreina Gran Abs 0.01 0.00 - 0.04 x10(3)/[facility] Blood specimen (specimen) 03/22/2019 3:56 AM EDT 03/22/2019 4:21 AM EDT Narrative Resulting Agency Comment Spec In Lab Kobi Self MD HEMATOLOGY ORDERABLE S [facility] [place] [address] * (ABNORMAL) Hemogram (03/22/2019 3:56 AM EDT) WBC 5.0 4.0 - 9.5 x10(3)/[facility] RBC 4.48(L) 4.58 - 5.54 x10(6)/[facility] Hemoglobin 13.1(L) 13.7 - 16.5 gm/dL [facility] Hematocrit 39.0(L) 40.5 - 48.5 % [facility] MCV 87.1 82.9 - 93.1 fL [facility] MCH 29.2 27.5 - 32.1 pg [facility] MCHC 33.6 32.0 - 35.7 gm/dL [facility] Platelets 176 145 - 357 x10(3)/[facility] RDWSD 48.9(H) 36.0 - 45.0 fL [facility] RDWCV 15.4(H) 11.4 - 13.8 % [facility] MPV 11.2 7.6 - 12.9 fL [facility] nRBC % Auto 0.0 % [facility] nRBC Abs Auto 0.000 0.000 - 0.000 x10(3)/mcL [facility] Blood specimen (specimen) 03/22/2019 3:56 AM EDT 03/22/2019 4:21 AM EDT Narrative Resulting Agency Comment Spec In Lab Kobi Self MD HEMATOLOGY ORDERABLE S Performing Organization Address City/[facility]/ZIP Co de Phone Number [facility] [place] [address] * Prothrombin Time (03/22/2019 3:56 AM EDT) PT 11.3 9.4 - 12.5 sec [facility] INR 1.0 [facility] Comment: An INR <2.0 indicates adequate procoagulant activity for hemostasis in most patients without underlying bleeding disorders, though the INR may not adequately reflect hemostatic capacity in patients with liver disease and synthetic impairment. The recommended target INR range for therapeutic anticoagulation is 2.0 ? 3.0 for most applications, though lower and higher ranges may be appropriate depending on clinical circumstances. Blood specimen (specimen) 03/22/2019 3:56 AM EDT 03/22/2019 4:21 AM EDT Narrative Resulting Agency Comment Spec In Lab Franklin Andrade III, MD HEMATOLOGY ORDERABLES [facility] [place] [address] * Magnesium (03/22/2019 3:56 AM EDT) Magnesium 0.88 0.69 - 1.07 mmol/L [facility] Blood specimen (specimen) 03/22/2019 3:56 AM EDT 03/22/2019 4:21 AM EDT Narrative Resulting Agency Comment Spec In Lab Franklin Andrade III, MD CHEMISTRY ORDERABLES [facility] [place] [address] * (ABNORMAL) CMP w/fasting Glucose (03/22/2019 3:56 AM EDT) Glucose Fasting 122(H) 65 - 99 mg/dL [facility] Comment: ?Fasting* Glucose Interpretive Criteria Normal ?65-99 mg/dL Impaired Fasting glucose ?100-125 mg/dL Consistent with Diabetes Mellitus ? >or= 126 mg/dL *Fasting is defined as no caloric intake for at least 8 hours In the absence of unequivocal hyperglycemia a plasma glucose value of >or= 126 mg/dL should be repeated on a subsequent day. Diagnosis and Classification of Diabetes Mellitus, Position Statement from the [place] [employer]. ??Diabetes Care, Volume 33, Supplement 1, Nov 2009 BUN 7(L) 10 - 20 mg/dL [facility] Creatinine 0.70(L) 0.80 - 1.50 mg/dL [facility] Sodium 138 135 - 145 mmol/L [facility] Potassium 3.7 3.5 - 5.0 mmol/L [facility] Comment: Please note: ??Patients with WBC >100,000 may have falsely elevated Potassium levels. ??For accurate Potassium quantification in these patients send serum separator tube (gold top) for subsequent determinations. ??Contact the Clinical Chemistry Laboratory if there are any questions. Chloride 104 98 - 107 mmol/L [facility] CO2 24 22 - 31 mmol/L [facility] Anion Gap 10 5 - 15 mmol/L [facility] Calcium 8.2(L) 8.5 - 10.5 mg/dL [facility] Total Protein 5.6(L) 6.1 - 8.0 gm/dL [facility] Albumin 2.9(L) 3.2 - 5.2 gm/dL [facility] AST 808(H) 0 - 39 unit/L [facility] Comment:result rechecked-bobby ALT 2,122(H) 0 - 55 unit/L [facility] Comment:result rechecked-bobby Alk Phos 301(H) 40 - 120 unit/L [facility] Total Bilirubin 6.2(H) 0.2 - 1.3 mg/dL [facility] Estimated GFR 117 >=60 mL/min/1. 73 m?? [facility] Comment: The eGFR was calculated using the CKD-EPI equation. As with all creatinine based estimates of kidney function, eGFR values calculated with the CKD-EPI equation are not accurate in patients with acute kidney failure, extremes of body mass or the acutely ill. [email or web address]/[facility] eGFR 136 >=60 mL/min/1. 73 m?? [facility] Comment: The eGFR was calculated using the CKD-EPI equation. As with all creatinine based estimates of kidney function, eGFR values calculated with the CKD-EPI equation are not accurate in patients with acute kidney failure, extremes of body mass or the acutely ill. [email or web address]/[facility] Blood specimen (specimen) 03/22/2019 3:56 AM EDT 03/22/2019 4:21 AM EDT Narrative Resulting Agency Comment Spec In Lab Franklin Andrade III, MD CHEMISTRY ORDERABLES [facility] [place] [address] * Scan, Peripheral Blood (03/21/2019 4:58 AM EDT) Plat Estimate Normal [facility] RBC Morphology Normal [facility] Atypical Lymph Moderate [facility] Blood specimen (specimen) 03/21/2019 4:58 AM EDT 03/21/2019 5:10 AM EDT Narrative Resulting Agency Comment Spec In Lab Kobi Self MD HEMATOLOGY ORDERABLE S [facility] [place] [address] * Differential, Automated (03/21/2019 4:58 AM EDT) Neutrophils % 54.1 % [facility] Neutr Abs (ANC) 2.71 1.70 - 6.10 x10(3)/[facility] Lymphocytes % 33.1 % [facility] Lymphocytes Abs 1.7 0.9 - 3.2 x10(3)/[facility] Monocytes % 9.4 % [facility] Monocyte Abs 0.5 0.3 - 0.9 x10(3)/[facility] Eosinophils % 2.4 % [facility] Eosinophils Abs 0.1 0.0 - 0.4 x10(3)/[facility] Basophils % 0.8 % [facility] Basophils Abs 0.0 0.0 - 0.1 x10(3)/[facility] Immature Gran % 0.20 % [facility] Comment: Immature granulocytes(IG's)percentage and absolute count will include metamyelocytes, myelocytes, and promyelocytes. Blood smears from CBCs yielding IG's will be scanned manually for concordance. If this scan disagrees with the automated IG or if promyelocytes are noted, a manual differential will be performed. Andreina Gran Abs 0.01 0.00 - 0.04 x10(3)/[facility] Blood specimen (specimen) 03/21/2019 4:58 AM EDT 03/21/2019 5:10 AM EDT Narrative Resulting Agency Comment Spec In Lab Kobi Self MD HEMATOLOGY ORDERABLE S Performing Organization Address City/[facility]/ZIP Co de Phone Number [facility] [place] [address] * (ABNORMAL) Hemogram (03/21/2019 4:58 AM EDT) WBC 5.0 4.0 - 9.5 x10(3)/[facility] RBC 4.49(L) 4.58 - 5.54 x10(6)/[facility] Hemoglobin 13.3(L) 13.7 - 16.5 gm/dL [facility] Hematocrit 39.1(L) 40.5 - 48.5 % [facility] MCV 87.1 82.9 - 93.1 [facility] MCH 29.6 27.5 - 32.1 pg [facility] MCHC 34.0 32.0 - 35.7 gm/dL [facility] Platelets 172 145 - 357 x10(3)/[facility] RDWSD 48.1(H) 36.0 - 45.0 [facility] RDWCV 15.1(H) 11.4 - 13.8 % [facility] MPV 11.1 7.6 - 12.9 [facility] nRBC % Auto 0.0 % [facility] nRBC Abs Auto 0.000 0.000 - 0.000 x10(3)/[facility] Blood specimen (specimen) 03/21/2019 4:58 AM EDT 03/21/2019 5:10 AM EDT Narrative Resulting Agency Comment Spec In Lab Kobi Self MD HEMATOLOGY ORDERABLE S Performing Organization Address City/[facility]/ZIP Co de Phone Number [facility] [place] [address] * Magnesium (03/21/2019 4:58 AM EDT) Magnesium 0.91 0.69 - 1.07 mmol/L [facility] Blood specimen (specimen) 03/21/2019 4:58 AM EDT 03/21/2019 5:10 AM EDT Narrative Resulting Agency Comment Spec In Lab Franklin Andrade III, MD CHEMISTRY ORDERABLES Performing Organization Address City/State/[facility] Co de Phone Number [facility] [place] [address] * (ABNORMAL) CMP w/fasting Glucose (03/21/2019 4:58 AM EDT) Glucose Fasting 115(H) 65 - 99 mg/dL [facility] Comment: ?Fasting* Glucose Interpretive Criteria Normal ?65-99 mg/dL Impaired Fasting glucose ?100-125 mg/dL Consistent with Diabetes Mellitus ? >or= 126 mg/dL *Fasting is defined as no caloric intake for at least 8 hours In the absence of unequivocal hyperglycemia a plasma glucose value of >or= 126 mg/dL should be repeated on a subsequent day. Diagnosis and Classification of Diabetes Mellitus, Position Statement from the [place] [employer]. ??Diabetes Care, Volume 33, Supplement 1, Nov 2009 BUN 9(L) 10 - 20 mg/dL [facility] Creatinine 0.69(L) 0.80 - 1.50 mg/dL [facility] Sodium 140 135 - 145 mmol/L [facility] Potassium 3.6 3.5 - 5.0 mmol/L [facility] Comment: Please note: ??Patients with WBC >100,000 may have falsely elevated Potassium levels. ??For accurate Potassium quantification in these patients send serum separator tube (gold top) for subsequent determinations. ??Contact the Clinical Chemistry Laboratory if there are any questions. Chloride 104 98 - 107 mmol/L [facility] CO2 25 22 - 31 mmol/L [facility] Anion Gap 11 5 - 15 mmol/L [facility] Calcium 8.3(L) 8.5 - 10.5 mg/dL [facility] Total Protein 5.7(L) 6.1 - 8.0 gm/dL [facility] Albumin 3.0(L) 3.2 - 5.2 gm/dL [facility] AST 1,406(H) 0 - 39 unit/L [facility] ALT 2,828(H) 0 - 55 unit/L [facility] Alk Phos 258(H) 40 - 120 unit/L [facility] Total Bilirubin 6.9(H) 0.2 - 1.3 mg/dL [facility] Estimated GFR 118 >=60 mL/min/1. 73 m?? [facility] Comment: The eGFR was calculated using the CKD-EPI equation. As with all creatinine based estimates of kidney function, eGFR values calculated with the CKD-EPI equation are not accurate in patients with acute kidney failure, extremes of body mass or the acutely ill. http://[place]/[facility] eGFR 137 >=60 mL/min/1. 73 m?? [facility] Comment: The eGFR was calculated using the CKD-EPI equation. As with all creatinine based estimates of kidney function, eGFR values calculated with the CKD-EPI equation are not accurate in patients with acute kidney failure, extremes of body mass or the acutely ill. [email or web address] Blood specimen (specimen) 03/21/2019 4:58 AM EDT 03/21/2019 5:10 AM EDT Narrative Resulting Agency Comment Spec In Lab Franklin Andrade III, MD CHEMISTRY ORDERABLES [facility] [place] [address] * EKG 12 Lead (03/20/2019 7:50 PM EDT) Ventricular rate 87 BPM MUSE SYSTEM Atrial Rate 87 BPM MUSE SYSTEM P-R Interval 148 ms MUSE SYSTEM QRS Duration 116 ms MUSE SYSTEM Q-T Interval 396 ms MUSE SYSTEM QTC Calculated (Bezet) 476 ms MUSE SYSTEM Calculated P [place] 66 degrees MUSE SYSTEM Calculated R [place] -29 degrees MUSE SYSTEM Calculated T [place] 37 degrees MUSE SYSTEM INTERPRETATION Sinus rhythm with frequent Premature ventricular complexes Right bundle branch block Abnormal ECG No previous ECGs available Confirmed by MD Fran, Torsten Lozoya ([id number]) on 03/20/2019 10:21:50 PM MUSE SYSTEM 03/20/2019 7:50 PM EDT 03/20/2019 10:21 PM EDT Franklin Andrade III, MD ECG ORDERA BLES Performing Organization Address City/[facility]/ZIP Co de Phone Number MUSE SYSTEM * Scan, Peripheral Blood (03/20/2019 12:00 AM EDT) Plat Estimate Normal [facility] RBC Morphology Abnormal [facility] Ovalocytes 1-5 /HPF [facility] Tear Drop Cells 1-5 /HPF [facility] [place] Cells 1-5 /HPF [facility] Atypical Lymph Moderate [facility] Giant Platelets Less than 1 /HPF [facility] Blood specimen (specimen) 03/20/2019 03/20/2019 12:13 AM EDT Narrative Resulting Agency Comment Spec In Lab Haris Rajan MD HEMATOLOGY ORDERABLE S Performing Organization Address City/[facility]/ZIP Co de Phone Number [facility] [place] [phone] * Differential, Automated (03/20/2019 12:00 AM EDT) Neutrophils % 48.7 % [facility] Neutr Abs (ANC) 2.57 1.70 - 6.10 x10(3)/mcL [facility] Lymphocytes % 38.5 % [facility] Lymphocytes Abs 2.0 0.9 - 3.2 x10(3)/[facility] Monocytes % 10.1 % [facility] Monocyte Abs 0.5 0.3 - 0.9 x10(3)/[facility] Eosinophils % 1.1 % [facility] Eosinophils Abs 0.1 0.0 - 0.4 x10(3)/[facility] Basophils % 0.8 % [facility] Basophils Abs 0.0 0.0 - 0.1 x10(3)/[facility] Immature Gran % 0.80 % [facility] Comment: Immature granulocytes(IG's)percentage and absolute count will include metamyelocytes, myelocytes, and promyelocytes. Blood smears from CBCs yielding IG's will be scanned manually for concordance. If this scan disagrees with the automated IG or if promyelocytes are noted, a manual differential will be performed. Andreina Gran Abs 0.04 0.00 - 0.04 x10(3)/[facility] Blood specimen (specimen) 03/20/2019 03/20/2019 12:13 AM EDT Narrative Resulting Agency Comment Spec In Lab Haris Rajan MD HEMATOLOGY ORDERABLE S Performing Organization Address City/State/[facility] Co de Phone Number [facility] [place] [address] * (ABNORMAL) Hemogram (03/20/2019 12:00 AM EDT) WBC 5.3 4.0 - 9.5 x10(3)/[facility] RBC 4.33(L) 4.58 - 5.54 x10(6)/[facility] Hemoglobin 12.7(L) 13.7 - 16.5 gm/dL [facility] Hematocrit 37.2(L) 40.5 - 48.5 % [facility] MCV 85.9 82.9 - 93.1 [facility] MCH 29.3 27.5 - 32.1 pg [facility] MCHC 34.1 32.0 - 35.7 gm/dL [facility] HOSPITAL LABORATORY Platelets 149 145 - 357 x10(3)/[facility] LABORATORY RDWSD 46.4(H) 36.0 - 45.0 [facility] LABORATORY RDWCV 14.6(H) 11.4 - 13.8 % [facility] MPV 11.0 7.6 - 12.9 [facility] LABORATORY nRBC % Auto 0.0 % [facility] LABORATORY nRBC Abs Auto 0.000 0.000 - 0.000 x10(3)/[facility] LABORATORY Blood specimen (specimen) 03/20/2019 03/20/2019 12:13 AM EDT Narrative Resulting Agency Comment Spec In Lab Haris Rajan MD HEMATOLOGY ORDERABLE S [facility] [place] [id number] * (ABNORMAL) CMP w/fasting Glucose (03/20/2019 12:00 AM EDT) Glucose Fasting 99 65 - 99 mg/dL [facility] Comment: ?Fasting* Glucose Interpretive Criteria Normal ?65-99 mg/dL Impaired Fasting glucose ?100-125 mg/dL Consistent with Diabetes Mellitus ? >or= 126 mg/dL *Fasting is defined as no caloric intake for at least 8 hours In the absence of unequivocal hyperglycemia a plasma glucose value of >or= 126 mg/dL should be repeated on a subsequent day. Diagnosis and Classification of Diabetes Mellitus, Position Statement from the [place] [employer]. ??Diabetes Care, Volume 33, Supplement 1, Nov 2009 BUN 6(L) 10 - 20 mg/dL [facility] Creatinine 0.72(L) 0.80 - 1.50 mg/dL [facility] Sodium 138 135 - 145 mmol/L [facility] Potassium 3.9 3.5 - 5.0 mmol/L [facility] Comment: Please note: ??Patients with WBC >100,000 may have falsely elevated Potassium levels. ??For accurate Potassium quantification in these patients send serum separator tube (gold top) for subsequent determinations. ??Contact the Clinical Chemistry Laboratory if there are any questions. Chloride 104 98 - 107 mmol/L [facility] CO2 23 22 - 31 mmol/L [facility] Anion Gap 11 5 - 15 mmol/L [facility] Calcium 8.1(L) 8.5 - 10.5 mg/dL [facility] Total Protein 5.7(L) 6.1 - 8.0 gm/dL [facility] Albumin 3.0(L) 3.2 - 5.2 gm/dL [facility] AST 2,145(H) 0 - 39 unit/L [facility] Comment:result rechecked-KS ALT 3,470(H) 0 - 55 unit/L [facility] Comment:result rechecked-KS Alk Phos 262(H) 40 - 120 unit/L [facility] Total Bilirubin 4.7(H) 0.2 - 1.3 mg/dL [facility] Estimated GFR 116 >=60 mL/min/1. 73 m?? [facility] Comment: The eGFR was calculated using the CKD-EPI equation. As with all creatinine based estimates of kidney function, eGFR values calculated with the CKD-EPI equation are not accurate in patients with acute kidney failure, extremes of body mass or the acutely ill. [email or web address] eGFR 134 >=60 mL/min/1. 73 m?? [facility] Comment: The eGFR was calculated using the CKD-EPI equation. As with all creatinine based estimates of kidney function, eGFR values calculated with the CKD-EPI equation are not accurate in patients with acute kidney failure, extremes of body mass or the acutely ill. [email or web address] Blood specimen (specimen) 03/20/2019 03/20/2019 12:13 AM EDT Narrative Resulting Agency Comment Spec In Lab Franklin Andrade III, MD CHEMISTRY ORDERABLES Performing Organization Address [facility] Co de Phone Number [facility] [place] [address] * (ABNORMAL) Prothrombin Time (03/20/2019 12:00 AM EDT) PT 16.7(H) 9.4 - 12.5 sec [facility] INR 1.5 [facility] Comment: An INR <2.0 indicates adequate procoagulant activity for hemostasis in most patients without underlying bleeding disorders, though the INR may not adequately reflect hemostatic capacity in patients with liver disease and synthetic impairment. The recommended target INR range for therapeutic anticoagulation is 2.0 ? 3.0 for most applications, though lower and higher ranges may be appropriate depending on clinical circumstances. Blood specimen (specimen) 03/20/2019 03/20/2019 12:13 AM EDT Narrative Resulting Agency Comment Spec In Lab Franklin Andrade III, MD HEMATOLOGY ORDERABLES Performing Organization Address [facility] Co de Phone Number [facility] [place] [address] * Magnesium (03/20/2019 12:00 AM EDT) Magnesium 0.91 0.69 - 1.07 mmol/L [facility] Blood specimen (specimen) 03/20/2019 03/20/2019 12:13 AM EDT Narrative Resulting Agency Comment Spec In Lab Franklin Andrade III, MD CHEMISTRY ORDERABLES Performing Organization Address [facility] Co de Phone Number [facility] [place] [address] * ECHO COMPLETE (03/19/2019 12:58 PM EDT) EF 60 HEARTLAB SYSTEM Anatomical Region Laterality Modality Other 03/19/2019 Narrative 03/19/2019 1:31 PM EDT Procedure: ?Transthoracic Echocardiogram Patient: ?DOTTY Puga ? (Age): 1975(43y) Med Rec#: ? [id number] ?Sex: ?M ? Site Loc: ? [facility] ?Ht / Wt: ??165(cm)/60(kg) Pt. Loc: ?ICU ? BSA: ?1.66 Study Date: ?? 03/19/2019 ?Pt. Type: Inpatient Tape: ? Referring: Ky Osman MD Referring: RADHA ESPINOSA G Reading: Serjio Sanchez ([id number]) Game Engineer: Kamryn Arellano Diagnosis: *Sepsis, unspecified organism (A41.9) Rhythm: ? Bundle Branch Block BP: ? 114/90 SUMMARY: 1. There is normal global left ventricular systolic function. ??The quantitative left ventricular ejection fraction by biplane Dietrich's method is 60%. There are no left ventricular segmental wall motion abnormalities. 2. Right ventricular chamber size, wall thickness, and systolic function are within normal limits. 3. There is no hemodynamically significant valve disease. 4. No valvular vegetations noted. ??Suggest a SUMMER if clinically indicated. 5. See remainder of report for additional findings. Findings ? : Study Quality: ? Adequate Left Ventricle: ? The left ventricular chamber size is normal. ?There is no evidence of LVOT obstruction. ?There is normal global left ventricular systolic function. ?The quantitative left ventricular ejection fraction by biplane Dietrich's method is 60%. ?There are no left ventricular segmental wall motion abnormalities. ?Left ventricular diastolic function is normal. ?Doppler assessment is consistent with normal left sided filling pressure. Left Atrium: ? The left atrium is normal in size. ?No atrial septal defect is visualized. Right Ventricle: ? Right ventricular chamber size, wall thickness, and systolic function are within normal limits. ?Pulmonary artery hypertension could not be assessed due to inadequate tricuspid regurgitation jet. Right Atrium: ? The right atrium appears normal. Aortic Valve: ? The aortic valve is trileaflet. The leaflets are thin with normal excursion. There is no aortic stenosis or regurgitation present. ?No vegetation is observed on the aortic valve. Mitral Valve: ? The mitral valve appears normal in structure and function. ?There is no evidence of mitral valve leaflet prolapse. ?There is mild (1+/4+) mitral regurgitation present. ?No vegetation is observed on the mitral valve. Tricuspid Valve: ? The tricuspid valve appears normal in structure and function. ?There is trace tricuspid regurgitation present. ?No vegetation is observed on the tricuspid valve. Pulmonic Valve: ? The pulmonic valve appears normal in structure and function. Pericardium: ? The pericardium appears normal and there is no evidence of a pericardial effusion. Aorta: ? The aortic root is normal in size. ?The ascending aorta is normal in size. ?There is no evidence of coarctation of the aorta. Pulmonary Artery: ? The main pulmonary artery appears normal. Venous: ? The inferior vena cava appears normal in size. ?There is a greater than 50% respiratory change in the inferior vena cava dimension. Misc: ? See remainder of report for additional findings. ?Two-dimensional echo, spectral Doppler and color Doppler performed. Chambers 2D ?Value ?Units (Range) ? RVIDd ??Base ? 3.6 ?cm ? RVIDd ??Mid (AP) ? 2.6 ?cm ? IVSd (2D) ? 0.9 ?cm ? LVPWd (2D) ?0.9 ?cm ? IVS:LVPW ratio (2D) 1 ?ratio ? RWT (2D) ?0.5 ?ratio ? RWT PW (2D) ? 0.5 ?ratio ? LVIDd (2D) ?3.9 ?cm ? LVIDs (2D) ?2.9 ?cm ? LVIDd (2D) index ?2.4 ?cm/m2 ? LVIDs (2D) index ?1.8 ?cm/m2 ? LV FS (2D) ?25 ? % ? EF Teichholz (2D) ?? 49 ? % ? Ao root diameter (2D3.3 ?cm (2.1 - 3.6) ? Ascending Ao ?3.3 ?cm (2 - 3.5) ? Volumes/Mass ?Value ?Units (Range) ? LA Area 4 CH ?12 ? cm2 (<21) ? RA AREA 4CH ? 13 ? cm2 ? LA ESV BP (MOD) inde17.5 ? ml/m2 ? LV ESV SP 4CH (MOD) 47 ? ml ? LV ESV SP 2CH (MOD) 42 ? ml ? LV EDV BP ? 114 ?ml ? LV ESV BP ? 46 ? ml ? LV EDV BP index ? 68.7 ? ml/m2 ? LV ESV BP index ? 27.7 ? ml/m2 ? BP EF (MOD) ? 60 ? % ? LV mass (2D) ?103.1 ?g ? LV mass (2D) index ??62.1 ? g/m2 ? Diastolic/Systolic Function ?Value ?Units (Range) ? MV E-wave Vmax ?0.5 ?m/sec ? MV deceleration [id number] ?msec ? MV A-wave Vmax ?0.5 ?m/sec ? MV E:A ratio ?1 ?ratio ? LV septal e' Vmax ?? 0.1 ?m/sec ? LV lateral e' Vmax ??0.1 ?m/sec ? LV average e' Vmax ??0.1 ?m/sec ? LV E:e' septal ratio6.2 ?ratio ? LV E:e' lateral rati3.7 ?ratio ? LV average E:e' rati4.5 ?ratio ? Tricuspid Valve ?Value ?Units (Range) ? TAPSE ? 2 ?cm ? RV lateral s' Vmax ??0.2 ?m/sec ? Wall Motion: Segment Name ?Rest ? Base-Anteroseptal ?? Normal ? Base-Anterior ? Normal ? Base-Anterolateral ??Normal ? Base-Posterolateral Normal ? Base-Inferior ? Normal ? Base-Inferoseptal ?? Normal ? Mid-Anteroseptal ?Normal ? Mid-Anterior ?Normal ? Mid-Anterolateral ?? Normal ? Mid-Posterolateral ??Normal ? Mid-Inferior ?Normal ? Mid-Inferoseptal ?Normal ? [place]-Septal ? Normal ? [place]-Anterior ? Normal ? [place]-Lateral ?Normal ? [place]-Inferior ? Normal ? [place]-Tip ?Normal ? This report has been electronically signed by: Serjio Sanchez M.D. ? 03/19/2019 13:31:02 Images reviewed and interpretation verified [facility] Cardiac Ultrasound Laboratory Procedure Note Serjio Sanchez MD - 03/19/2019 Procedure: Transthoracic Echocardiogram Patient: DOTTY Puga (Age): 1975(43y) Med Rec#: [id number] Sex: M Site Loc: [facility] Ht / Wt: 165(cm)/60(kg) Pt. Loc: ICU BSA: 1.66 Study Date: 03/19/2019 Pt. Type: Inpatient Tape: Referring: Ky Osman MD Referring: RADHA ESPINOSA G Reading: Serjio Sanchez ([id number]) Game Engineer: Kamryn Arellano Diagnosis: *Sepsis, unspecified organism (A41.9) Rhythm: Bundle Branch Block BP: 114/90 SUMMARY: 1. There is normal global left ventricular systolic function. The quantitative left ventricular ejection fraction by biplane Dietrich's method is 60%. There are no left ventricular segmental wall motion abnormalities. 2. Right ventricular chamber size, wall thickness, and systolic function are within normal limits. 3. There is no hemodynamically significant valve disease. 4. No valvular vegetations noted. Suggest a SUMMER if clinically indicated. 5. See remainder of report for additional findings. Findings : Study Quality: Adequate Left Ventricle: The left ventricular chamber size is normal. There is no evidence of LVOT obstruction. There is normal global left ventricular systolic function. The quantitative left ventricular ejection fraction by biplane Dietrich's method is 60%. There are no left ventricular segmental wall motion abnormalities. Left ventricular diastolic function is normal. Doppler assessment is consistent with normal left sided filling pressure. Left Atrium: The left atrium is normal in size. No atrial septal defect is visualized. Right Ventricle: Right ventricular chamber size, wall thickness, and systolic function are within normal limits. Pulmonary artery hypertension could not be assessed due to inadequate tricuspid regurgitation jet. Right Atrium: The right atrium appears normal. Aortic Valve: The aortic valve is trileaflet. The leaflets are thin with normal excursion. There is no aortic stenosis or regurgitation present. No vegetation is observed on the aortic valve. Mitral Valve: The mitral valve appears normal in structure and function. There is no evidence of mitral valve leaflet prolapse. There is mild (1+/4+) mitral regurgitation present. No vegetation is observed on the mitral valve. Tricuspid Valve: The tricuspid valve appears normal in structure and function. There is trace tricuspid regurgitation present. No vegetation is observed on the tricuspid valve. Pulmonic Valve: The pulmonic valve appears normal in structure and function. Pericardium: The pericardium appears normal and there is no evidence of a pericardial effusion. Aorta: The aortic root is normal in size. The ascending aorta is normal in size. There is no evidence of coarctation of the aorta. Pulmonary Artery: The main pulmonary artery appears normal. Venous: The inferior vena cava appears normal in size. There is a greater than 50% respiratory change in the inferior vena cava dimension. Misc: See remainder of report for additional findings. Two-dimensional echo, spectral Doppler and color Doppler performed. Chambers 2D Value Units (Range) RVIDd Base 3.6 cm RVIDd Mid (AP) 2.6 cm IVSd (2D) 0.9 cm LVPWd (2D) 0.9 cm IVS:LVPW ratio (2D) 1 ratio RWT (2D) 0.5 ratio RWT PW (2D) 0.5 ratio LVIDd (2D) 3.9 cm LVIDs (2D) 2.9 cm LVIDd (2D) index 2.4 cm/m2 LVIDs (2D) index 1.8 cm/m2 LV FS (2D) 25 % EF Teichholz (2D) 49 % Ao root diameter (2D3.3 cm (2.1 - 3.6) Ascending Ao 3.3 cm (2 - 3.5) Volumes/Mass Value Units (Range) LA Area 4 CH 12 cm2 (<21) RA AREA 4CH 13 cm2 LA ESV BP (MOD) inde17.5 ml/m2 LV ESV SP 4CH (MOD) 47 ml LV ESV SP 2CH (MOD) 42 ml LV EDV BP 114 ml LV ESV BP 46 ml LV EDV BP index 68.7 ml/m2 LV ESV BP index 27.7 ml/m2 BP EF (MOD) 60 % LV mass (2D) 103.1 g LV mass (2D) index 62.1 g/m2 Diastolic/Systolic Function Value Units (Range) MV E-wave Vmax 0.5 m/sec MV deceleration [id number] msec MV A-wave Vmax 0.5 m/sec MV E:A ratio 1 ratio LV septal e' Vmax 0.1 m/sec LV lateral e' Vmax 0.1 m/sec LV average e' Vmax 0.1 m/sec LV E:e' septal ratio6.2 ratio LV E:e' lateral rati3.7 ratio LV average E:e' rati4.5 ratio Tricuspid Valve Value Units (Range) TAPSE 2 cm RV lateral s' Vmax 0.2 m/sec Wall Motion: Segment Name Rest Base-Anteroseptal Normal Base-Anterior Normal Base-Anterolateral Normal Base-Posterolateral Normal Base-Inferior Normal Base-Inferoseptal Normal Mid-Anteroseptal Normal Mid-Anterior Normal Mid-Anterolateral Normal Mid-Posterolateral Normal Mid-Inferior Normal Mid-Inferoseptal Normal [place]-Septal Normal [place]-Anterior Normal [place]-Lateral Normal [place]-Inferior Normal [place]-Tip Normal This report has been electronically signed by: Chad Ruff/13/2019 13:31:02 Images reviewed and interpretation verified [facility] Cardiac Ultrasound Laboratory Ky Osman MD ECHO ORDERABLES * CK (03/19/2019 9:35 AM EDT) CK, Total 33 0 - 200 unit/L [facility] Blood specimen (specimen) Venous Draw / Unknown 03/19/2019 9:35 AM EDT 03/19/2019 11:11 AM EDT Narrative Resulting Agency Comment Spec In Lab Flor Rivera MD CHEMISTRY ORDERABLES Performing Organization Address City/[facility]/ZIP Co de Phone Number [facility] [place] [address] * (ABNORMAL) Lactate Dehydrogenase (03/19/2019 9:35 AM EDT) LDH 772(H) 110 - 220 unit/L [facility] Blood specimen (specimen) 03/19/2019 9:35 AM EDT 03/19/2019 9:43 AM EDT Narrative Resulting Agency Comment Spec In Lab Franklin Andrade III, MD CHEMISTRY ORDERABLES Performing Organization Address City/[facility]/ZIP Co de Phone Number [facility] [place] [address] * (ABNORMAL) Lactate Dehydrogenase (03/19/2019 7:01 AM EDT) LDH 905(H) 110 - 220 unit/L [facility] Blood specimen (specimen) Venous Draw / Unknown 03/19/2019 7:01 AM EDT 03/19/2019 8:23 AM EDT Narrative Resulting Agency Comment Spec In Lab Kobi Self MD CHEMISTRY ORDERABLES [facility] [place] [address] * Scan, Peripheral Blood (03/19/2019 7:01 AM EDT) Pathologist [facility] Plat Estimate Normal [facility] RBC Morphology Abnormal [facility] Tear Drop Cells 1-5 /HPF [facility] Tenino Cells 6-10 /HPF [facility] Giant Platelets Less than 1 /HPF [facility] Blood specimen (specimen) 03/19/2019 7:01 AM EDT 03/19/2019 7:05 AM EDT Narrative Resulting Agency Comment Spec In Lab Haris Rajan MD HEMATOLOGY ORDERABLE S [facility] [place] [id number] * Differential, Automated (03/19/2019 7:01 AM EDT) Pathologist [facility] Neutrophils % 59.0 % [facility] Neutr Abs (ANC) 3.30 1.70 - 6.10 x10(3)/[facility] LABORATORY Lymphocytes % 28.9 % [facility] Lymphocytes Abs 1.6 0.9 - 3.2 x10(3)/[facility] LABORATORY Monocytes % 10.7 % [facility] Monocyte Abs 0.6 0.3 - 0.9 x10(3)/[facility] LABORATORY Eosinophils % 0.4 % [facility] Eosinophils Abs 0.0 0.0 - 0.4 x10(3)/[facility] LABORATORY Basophils % 0.5 % [facility] Basophils Abs 0.0 0.0 - 0.1 x10(3)/[facility] LABORATORY Immature Gran % 0.50 % [facility] Comment: Immature granulocytes(IG's)percentage and absolute count will include metamyelocytes, myelocytes, and promyelocytes. Blood smears from CBCs yielding IG's will be scanned manually for concordance. If this scan disagrees with the automated IG or if promyelocytes are noted, a manual differential will be performed. Andreina Gran Abs 0.03 0.00 - 0.04 x10(3)/[facility] LABORATORY Blood specimen (specimen) 03/19/2019 7:01 AM EDT 03/19/2019 7:05 AM EDT Narrative Resulting Agency Comment Spec In Lab Haris Rajan MD HEMATOLOGY ORDERABLE S [facility] [place] [address] * (ABNORMAL) Hemogram (03/19/2019 7:01 AM EDT) WBC 5.6 4.0 - 9.5 x10(3)/[facility] LABORATORY RBC 4.51(L) 4.58 - 5.54 x10(6)/[facility]ORATORY Hemoglobin 13.3(L) 13.7 - 16.5 gm/dL [facility] Hematocrit 38.6(L) 40.5 - 48.5 % [facility] MCV 85.6 82.9 - 93.1 [facility]ORY MCH 29.5 27.5 - 32.1 pg [facility] MCHC 34.5 32.0 - 35.7 gm/dL [facility] Platelets 151 145 - 357 x10(3)/[facility] LABORATORY RDWSD 44.4 36.0 - 45.0 [facility] RDWCV 14.2(H) 11.4 - 13.8 % [facility] MPV 10.4 7.6 - 12.9 [facility] nRBC % Auto 0.0 % [facility] nRBC Abs Auto 0.000 0.000 - 0.000 x10(3)/[facility] LABORATORY Blood specimen (specimen) 03/19/2019 7:01 AM EDT 03/19/2019 7:05 AM EDT Narrative Resulting Agency Comment Spec In Lab Haris Rajan MD HEMATOLOGY ORDERABLE S Performing Organization Address [facility]/ZIP Co de Phone Number [facility] [place] [address] * Magnesium (03/19/2019 7:01 AM EDT) Magnesium 0.70 0.69 - 1.07 mmol/L [facility] Blood specimen (specimen) 03/19/2019 7:01 AM EDT 03/19/2019 7:05 AM EDT Narrative Resulting Agency Comment Spec In Lab Franklin Andrade III, MD CHEMISTRY ORDERABLES Performing Organization Address [facility] Co de Phone Number [facility] [place] [address] * (ABNORMAL) CMP w/fasting Glucose (03/19/2019 7:01 AM EDT) Glucose Fasting 86 65 - 99 mg/dL [facility] Comment: ?Fasting* Glucose Interpretive Criteria Normal ?65-99 mg/dL Impaired Fasting glucose ?100-125 mg/dL Consistent with Diabetes Mellitus ? >or= 126 mg/dL *Fasting is defined as no caloric intake for at least 8 hours In the absence of unequivocal hyperglycemia a plasma glucose value of >or= 126 mg/dL should be repeated on a subsequent day. Diagnosis and Classification of Diabetes Mellitus, Position Statement from the [place] [employer]. ??Diabetes Care, Volume 33, Supplement 1, Nov 2009 BUN 7(L) 10 - 20 mg/dL [facility] Creatinine 0.67(L) 0.80 - 1.50 mg/dL [facility] Sodium 135 135 - 145 mmol/L [facility] Potassium 4.2 3.5 - 5.0 mmol/L [facility] Comment: Please note: ??Patients with WBC >100,000 may have falsely elevated Potassium levels. ??For accurate Potassium quantification in these patients send serum separator tube (gold top) for subsequent determinations. ??Contact the Clinical Chemistry Laboratory if there are any questions. Chloride 102 98 - 107 mmol/L [facility] CO2 21(L) 22 - 31 mmol/L [facility] Anion Gap 12 5 - 15 mmol/L [facility] Calcium 8.2(L) 8.5 - 10.5 mg/dL [facility] Total Protein 5.6(L) 6.1 - 8.0 gm/dL [facility] Albumin 2.8(L) 3.2 - 5.2 gm/dL [facility] AST 3,050(H) 0 - 39 unit/L [facility] ALT 4,010(H) 0 - 55 unit/L [facility] Alk Phos 267(H) 40 - 120 unit/L [facility] Total Bilirubin 4.6(H) 0.2 - 1.3 mg/dL [facility] Estimated GFR 119 >=60 mL/min/1. 73 m?? [facility] Comment: The eGFR was calculated using the CKD-EPI equation. As with all creatinine based estimates of kidney function, eGFR values calculated with the CKD-EPI equation are not accurate in patients with acute kidney failure, extremes of body mass or the acutely ill. [email or web address]/[facility] TULSAnkf eGFR 138 >=60 mL/min/1. 73 m?? [facility] Comment: The eGFR was calculated using the CKD-EPI equation. As with all creatinine based estimates of kidney function, eGFR values calculated with the CKD-EPI equation are not accurate in patients with acute kidney failure, extremes of body mass or the acutely ill. [email or web address]/[facility] TULSAnkf Blood specimen (specimen) 03/19/2019 7:01 AM EDT 03/19/2019 7:05 AM EDT Narrative Resulting Agency Comment Spec In Lab Franklin Andrade III, MD CHEMISTRY ORDERABLES Performing Organization Address City/[facility]/ZIP Co de Phone Number [facility] [place] [address] * APTT (03/19/2019 5:16 AM EDT) PTT 32 25 - 37 sec [facility] Comment: The PTT is NOT appropriate for heparin monitoring. Use the Anti-Xa level for heparin monitoring (HEP UFH) or LMWH monitoring (HEP LMW). A PTT less than 37 seconds generally indicates adequate hemostasis. Blood specimen (specimen) Venous Draw / Unknown 03/19/2019 5:16 AM EDT 03/19/2019 5:20 AM EDT Narrative Resulting Agency Comment Spec In Lab Haris Rajan MD HEMATOLOGY ORDERABLE S Performing Organization Address [facility] Co de Phone Number [facility] [place] [address] * (ABNORMAL) Prothrombin Time (03/19/2019 5:16 AM EDT) PT 18.1(H) 9.4 - 12.5 sec [facility] INR 1.6 [facility] Comment: An INR <2.0 indicates adequate procoagulant activity for hemostasis in most patients without underlying bleeding disorders, though the INR may not adequately reflect hemostatic capacity in patients with liver disease and synthetic impairment. The recommended target INR range for therapeutic anticoagulation is 2.0 ? 3.0 for most applications, though lower and higher ranges may be appropriate depending on clinical circumstances. Blood specimen (specimen) 03/19/2019 5:16 AM EDT 03/19/2019 5:20 AM EDT Narrative Resulting Agency Comment Spec In Lab Franklin Andrade III, MD HEMATOLOGY ORDERABLES Performing Organization Address City/[facility]/ZIP Co de Phone Number [facility] [place] [address] * Lactate, whole blood, send to lab (Leb/CGP) (03/19/2019 12:05 AM EDT) Lactate WB 2.0 0.5 - 2.2 mmol/L [facility] Blood specimen (specimen) Venous Draw / Unknown 03/19/2019 12:05 AM EDT 03/19/2019 12:14 AM EDT Narrative Resulting Agency Comment Spec In Lab Haris Rajan MD CHEMISTRY ORDERABLES [facility] [place] [address] * SCAN DOC: COMPLIANCE QUALITY PERFORMANCE ANALYST (03/19/2019 12:00 AM EDT) Anatomical Region Laterality Modality Other Narrative 03/19/2019 12:00 AM EDT Ordered by an unspecified provider. Scanning Provider MEDIA MGR SCAN EXT O RDR/RSLT * Request For 2nd Read CT Abdomen & Pelvis (03/18/2019 11:49 PM EDT) Anatomical Region Laterality Modality Abdomen, Pelvis SO Impressions 03/19/2019 9:53 AM EDT Given the lack of perihepatic and pericholecystic inflammatory changes I suspect that findings described above are due to congestive thickening of the gallbladder wall with accompanying periportal edema. This edema may reflect hepatic parenchymal dysfunction. Concomitant adenomyomatosis. No abscess. If there is ongoing concern for occult acuity, HIDA scan is suggested. Thank you for letting us participate in the care of this patient. For questions regarding this report, please contact the number below. ? Narrative 03/19/2019 9:53 AM EDT EXAMINATION: ??REQUEST FOR 2ND READ CT ABDOMEN AND PELVIS CLINICAL HISTORY: ??Eval for biliary pathology and any abscesses?; What Modality is the exam? CT Scan; Body Part (please add comments as necessary): ABD/PEL; I believe a reinterpretation of this exam may alter care of Patient. Yes TECHNIQUE: Helical CT of the abdomen and pelvis was performed following the intravenous administration of Omnipaque 350 contrast. Volume unknown. Study performed March 18, 2019 at [facility]. COMPARISON: None FINDINGS: Lower chest: 5 mm peripheral lingular nodule of unknown clinical significance. Liver: Normal size and attenuation without lesions. Bile ducts: Nondilated. Gallbladder: Hydropic. Mural nodularity. Cannot distinguish pericholecystic fluid from mural congestion. Pancreas: Normal attenuation without ductal dilatation. Spleen: Normal. Adrenals: Normal. Kidneys: Normal. Urinary Bladder: LAT Vasculature: Normal Lymph Nodes: No enlarged lymph nodes. Bowel: Nondilated, no wall thickening. ?? Peritoneum and mesentery: Periportal edema. This extends into the saroj hepatis. Free fluid confined to the gallbladder fossa, smooth borders. No loculated fluid collections. No free air. Abdominal wall: Normal. Reproductive organs: Normal prostate contour Osseous structures: Degenerative changes characterized by anterior superior and inferior endplate osteophytes without suspicious lesion nor acute fracture. Procedure Note Kellee Sheikh MD - 03/19/2019 EXAMINATION: REQUEST FOR 2ND READ CT ABDOMEN AND PELVIS CLINICAL HISTORY: Eval for biliary pathology and any abscesses?; WhatModality is the exam? CT Scan; Body Part (please add comments as necessary):ABD/PEL; I believe a reinterpretation of this exam may alter care of Patient. Yes TECHNIQUE: Helical CT of the abdomen and pelvis was performed followingthe intravenous administration of Omnipaque 350 contrast. Volume unknown.Study performed March 18, 2019 at [facility]. COMPARISON: None FINDINGS: Lower chest: 5 mm peripheral lingular nodule of unknown clinicalsignificance. Liver: Normal size and attenuation without lesions. Bile ducts: Nondilated. Gallbladder: Hydropic. Mural nodularity. Cannot distinguishpericholecystic fluid from mural congestion. Pancreas: Normal attenuation without ductal dilatation. Spleen: Normal. Adrenals: Normal. Kidneys: Normal. Urinary Bladder: LAT Vasculature: Normal Lymph Nodes: No enlarged lymph nodes. Bowel: Nondilated, no wall thickening. Peritoneum and mesentery: Periportal edema. This extends into the portahepatis. Free fluid confined to the gallbladder fossa, smooth borders. No loculatedfluid collections. No free air. Abdominal wall: Normal. Reproductive organs: Normal prostate contour Osseous structures: Degenerative changes characterized by anteriorsuperior and inferior endplate osteophytes without suspicious lesion nor acutefracture. IMPRESSION Given the lack of perihepatic and pericholecystic inflammatory changes Isuspect that findings described above are due to congestive thickening of the gallbladder wall with accompanying periportal edema. This edema mayreflect hepatic parenchymal dysfunction. Concomitant adenomyomatosis. Noabscess. If there is ongoing concern for occult acuity, HIDA scan is suggested. Thank you for letting us participate in the care of this patient. Forquestions regarding this report, please contact the number below. Electronically signed by: Kellee Sheikh [facility] ([phone]),at 03/19/2019 9:53 AM Ky Osman MD IMG OUTSIDE INTERPRE TATION ORDERABLES * (ABNORMAL) Rapid Drug Screen w/o Confirmation, Urine (03/18/2019 11:40 PM EDT) U Barbiturates Screen None Detected None Detected [facility] Comment: The barbiturate screen detects barbiturates at concentrations >200 ng/mL. Note: Not all barbiturates cross-react equally with antibody used in this screen. A ? Presumptive Positive? result indicates that the screening result was positive but has not yet been confirmed by a highly-specific method. As with any screen, occasional false positive results from cross-reacting substances may occur. Not for Medico-Legal Purposes. U Benzodiazepines Screen None Detected None Detected [facility] Comment: The benzodiazepines screen detects benzodiazepines at concentrations >100 ng/mL. Not all benzodiazepines cross-react equally with antibody used in this screen. Due to the low dosage of clonazepam, false negatives may be obtained due to low concentration of clonazepam metabolites. A ? Presumptive Positive? result indicates that the screening result was positive but has not yet been confirmed by a highly-specific method. As with any screen, occasional false positive results from cross-reacting substances may occur. Not for Medico-Legal Purposes. U Cocaine Screen Presumptive Pos(A) None Detected [facility] Comment: The cocaine metabolites screen detects benzoylecgonine (Cocaine Metabolite) at concentrations >150 ng/mL. A ? Presumptive Positive? result indicates that the screening result was positive but has not yet been confirmed by a highly-specific method. As with any screen, occasional false positive results from cross-reacting substances may occur. Not for Medico-Legal Purposes. U Methadone Metabolites Screen None Detected None Detected [facility] Comment: The methadone metabolite screen detects EDDP (major methadone metabolite) at concentrations >100 ng/mL. A ? Presumptive Positive? result indicates that the screening result was positive but has not yet been confirmed by a highly-specific method. As with any screen, occasional false positive results from cross-reacting substances may occur. Not for Medico-Legal Purposes. U Opiate Screen None Detected None Detected [facility] Comment: The opiates screen detects opiates at concentrations >300 ng/mL. Please note that oxycodone, oxymorphone, fentanyl, tramadol, and other synthetic opioids are not detected by the opiate screen. A ? Presumptive Positive? result indicates that the screening result was positive but has not yet been confirmed by a highly-specific method. As with any screen, occasional false positive results from cross-reacting substances may occur. Not for Medico-Legal Purposes. U Cannabinoid Screen Presumptive Pos(A) None Detected [facility] Comment: The marijuana metabolites screen detects the THC metabolite (72-dli-0-carboxy-delta 9-THC) at concentrations >20 ng/mL. A ? Presumptive Positive? result indicates that the screening result was positive but has not yet been confirmed by a highly-specific method. As with any screen, occasional false positive results from cross-reacting substances may occur. Not for Medico-Legal Purposes. U Oxycodone Screen None Detected None Detected [facility] Comment: The oxycodone screen detects oxycodone and oxymorphone at concentrations >100 ng/mL. A ? Presumptive Positive? result indicates that the screening result was positive but has not yet been confirmed by a highly-specific method. As with any screen, occasional false positive results from cross-reacting substances may occur. Not for Medico-Legal Purposes. U Buprenorphine Screen None Detected None Detected [facility] Comment: The buprenorphine screen detects buprenorphine at concentrations >5 ng/mL. A ? Presumptive Positive? result indicates that the screening result was positive but has not yet been confirmed by a highly-specific method. As with any screen, occasional false positive results from cross-reacting substances may occur. Not for Medico-Legal Purposes. U Fentanyl Screen None Detected None Detected [facility] Comment: The fentanyl screen detects fentanyl at concentrations >2 ng/mL. A ? Presumptive Positive? result indicates that the screening result was positive but has not yet been confirmed by a highly-specific method. As with any screen, occasional false positive results from cross-reacting substances may occur. Not for Medico-Legal Purposes. U Tricyclics Screen None Detected None Detected [facility] Comment: The tricyclics screen detects tricyclic antidepressants at concentrations >150 ng/mL. Not all tricyclics cross-react equally with the antibody used in this screen. A ? Presumptive Positive? result indicates that the screening result was positive but has not yet been confirmed by a highly-specific method. As with any screen, occasional false positive results from cross-reacting substances may occur. Not for Medico-Legal Purposes. U Ethanol Screen None Detected None Detected [facility] Comment:This urine ethanol a ssay detects ethanol at concentrations >/= 100 mg/L. U Amphetamines Screen None Detected None Detected [facility] Comment: The amphetamine screen detects d-amphetamine and d-methamphetamine at concentrations >300 ng/mL. A ? Presumptive Positive? result indicates that the screening result was positive but has not yet been confirmed by a highly-specific method. As with any screen, occasional false positive results from cross-reacting substances may occur. Not for Medico-Legal Purposes. U Adulterants Screen None Detected None Detected [facility] Comment: No adulteration or dilution of this urine sample was detected. All urine samples submitted for urine drugs of abuse analysis are tested for creatinine concentration, pH, and for the presence of oxidants, nitrites, and chromate. Urine specimen (specimen) 03/18/2019 11:40 PM EDT 03/18/2019 11:56 PM EDT Narrative Resulting Agency Comment Spec In Lab Haris Rajan MD CHEMISTRY ORDERABLES Performing Organization Address [facility]/ZIP Co de Phone Number [facility] [place] [address] * Rapid Drug Screen, Urine (JODI Request) (03/18/2019 11:40 PM EDT) JODI Conf Requested No [facility] Comment: Collection date/time has been modified to: 23:40:00. ??Previous collection date/time: 23:39:00. Corrected from No [NA] on 03/18/19 23:59:44 EDT by Stephanie Foote JODI Requested See Comment [facility] Comment: Refer to Rapid Drug Screen w/o Confirmation, Urine for results. Collection date/time has been modified to: 23:40:00. ??Previous collection date/time: 23:39:00. Corrected from See Comment [NA] on 03/18/19 23:59:44 EDT by Stephanie Foote Urine specimen (specimen) 03/18/2019 11:40 PM EDT 03/18/2019 11:56 PM EDT Narrative Resulting Agency Comment Spec In Lab Jimenez Pérez DO URINE ORDERABLES Performing Organization Address City/[facility]/ZIP Co de Phone Number [facility] [place] [address] * Urine Hold (03/18/2019 11:39 PM EDT) Urine Hold Sample in lab. [facility] Urine specimen (specimen) Urine / Unknown 03/18/2019 11:39 PM EDT 03/18/2019 11:57 PM EDT Haris Rajan MD URINE ORDERABLES [facility] [place] [address] * (ABNORMAL) Urinalysis with reflex Culture (03/18/2019 11:39 PM EDT) Glucose UA Negative Negative mg/dL [facility] Protein UA Negative Negative mg/dL [facility] Bilirubin UA Small(A) Negative mg/dL [facility] Comment: Clinical correlation required for positive Urine Bilirubin results as false positive may occur with some drugs and drug related products. If a false positive is suspected a serum total bilirubin should be considered if clinically indicated. Urobilinogen UA >=4.0(A) Normal mg/dL [facility] pH UA 6.0 5.0 - 8.0 [facility] Blood UA Negative Negative mg/dL [facility] Ketones UA Negative Negative mg/dL [facility] Nitrite UA Negative Negative [facility] Leukocytes UA Negative Negative [facility] Appearance UA Clear Clear [facility] Spec Russell UA 1.031(H) 1.002 - 1.030 [facility] Color UA Pili Yellow [facility] Culture Reflexed No [facility] Urine specimen (specimen) 03/18/2019 11:39 PM EDT 03/18/2019 11:56 PM EDT Narrative Resulting Agency Comment Spec In Lab Jimenez Pérez DO URINE ORDERABLES [facility] [place] [address] * Blood culture (03/18/2019 11:15 PM EDT) Blood Culture No growth at 5 days. [facility] Blood specimen (specimen) STRUCTURE OF LEFT HAND / Unknown 03/18/2019 11:15 PM EDT 03/19/2019 12:22 AM EDT Narrative Resulting Agency Comment Spec In Lab Ky Osman MD MICROBIOLOGY - BLOOD ORDERABLES Performing Organization Address City/[facility]/ZIP Co de Phone Number [facility] [place] [address] * Film Library- Storage Only CT Abdomen & Pelvis (03/18/2019 11:11 PM EDT) Narrative RAD - 03/18/2019 11:11 PM EDT This exam is auto-finalizing. It's purpose is for storage only. Ky Osman MD IMG FILM LIBRARY ORD ERABLES Performing Organization Address [facility] Co de Phone Number [place], [place] * Hepatitis B DNA, quantitative, PCR (03/18/2019 11:00 PM EDT) Hepatitis B DNA, quantitative, PCR Result: [id number] IU/mL Indication for Study: HBV Infection Analysis: Guillen RealTime HBV assay is an in vitro polymerase chain reaction (PCR) assay for the quantitation of Hepatitis B Virus (HBV) DNA in human serum or plasma (EDTA) from chronically HBV-infected individuals. Sample: plasma (0.7 mL minimum volume) Method: Guillen RealTime HBV Assay Linear Range: 10 IU/mL ? 1,000,000,000 IU/mL Note: The Gu[employer]en RealTime HBV Assay has been approved by the U.S. Food and Drug Administration. [facility] Blood specimen (specimen) Venous Draw / Unknown 03/18/2019 11:00 PM EDT 03/19/2019 9:29 AM EDT Narrative Resulting Agency Comment Spec In Lab Franklin Andrade III, MD CHEMISTRY ORDERABLES Performing Organization Address City/[facility]/ZIP Co de Phone Number [facility] [place] [address] * Scan, Peripheral Blood (03/18/2019 11:00 PM EDT) Plat Estimate Normal [facility] RBC Morphology Abnormal [facility] Ovalocytes 1-5 /HPF [facility] Tear Drop Cells 1-5 /HPF [facility] Denis Cells gtr than 10 /HPF [facility] Giant Platelets Less than 1 /HPF [facility] Blood specimen (specimen) 03/18/2019 11:00 PM EDT 03/18/2019 11:16 PM EDT Narrative Resulting Agency Comment Spec In Lab Haris Rajan MD HEMATOLOGY ORDERABLE S [facility] [place] [address] * Differential, Automated (03/18/2019 11:00 PM EDT) Neutrophils % 64.6 % [facility] Neutr Abs (ANC) 3.72 1.70 - 6.10 x10(3)/[facility] Lymphocytes % 24.5 % [facility] Lymphocytes Abs 1.4 0.9 - 3.2 x10(3)/[facility] Monocytes % 9.2 % [facility] Monocyte Abs 0.5 0.3 - 0.9 x10(3)/[facility] Eosinophils % 0.5 % [facility] Eosinophils Abs 0.0 0.0 - 0.4 x10(3)/[facility] Basophils % 0.7 % [facility] Basophils Abs 0.0 0.0 - 0.1 x10(3)/[facility] Immature Gran % 0.50 % [facility] Comment: Immature granulocytes(IG's)percentage and absolute count will include metamyelocytes, myelocytes, and promyelocytes. Blood smears from CBCs yielding IG's will be scanned manually for concordance. If this scan disagrees with the automated IG or if promyelocytes are noted, a manual differential will be performed. Andreina Gran Abs 0.03 0.00 - 0.04 x10(3)/[facility] Blood specimen (specimen) 03/18/2019 11:00 PM EDT 03/18/2019 11:16 PM EDT Narrative Resulting Agency Comment Spec In Lab Haris Rajan MD HEMATOLOGY ORDERABLE S Performing Organization Address City/[facility]/ZIP Co de Phone Number [facility] [place] [address] * (ABNORMAL) Hemogram (03/18/2019 11:00 PM EDT) WBC 5.8 4.0 - 9.5 x10(3)/[facility] RBC 4.49(L) 4.58 - 5.54 x10(6)/[facility] Hemoglobin 13.2(L) 13.7 - 16.5 gm/dL [facility] Hematocrit 39.5(L) 40.5 - 48.5 % [facility] MCV 88.0 82.9 - 93.1 [facility] MCH 29.4 27.5 - 32.1 pg [facility] MCHC 33.4 32.0 - 35.7 gm/dL [facility] Platelets 164 145 - 357 x10(3)/[facility] RDWSD 45.2(H) 36.0 - 45.0 [facility] RDWCV 14.2(H) 11.4 - 13.8 % [facility] MPV 10.6 7.6 - 12.9 [facility] nRBC % Auto 0.0 % [facility] nRBC Abs Auto 0.000 0.000 - 0.000 x10(3)/[facility] Blood specimen (specimen) 03/18/2019 11:00 PM EDT 03/18/2019 11:16 PM EDT Narrative Resulting Agency Comment Spec In Lab Haris Rajan MD HEMATOLOGY ORDERABLE S Performing Organization Address City/[facility]/ZIP Co de Phone Number [facility] [place] [address] * (ABNORMAL) CMP w/fasting Glucose (03/18/2019 11:00 PM EDT) Glucose Fasting 116(H) 65 - 99 mg/dL [facility] Comment: ?Fasting* Glucose Interpretive Criteria Normal ?65-99 mg/dL Impaired Fasting glucose ?100-125 mg/dL Consistent with Diabetes Mellitus ? >or= 126 mg/dL *Fasting is defined as no caloric intake for at least 8 hours In the absence of unequivocal hyperglycemia a plasma glucose value of >or= 126 mg/dL should be repeated on a subsequent day. Diagnosis and Classification of Diabetes Mellitus, Position Statement from the [place] [employer]. ??Diabetes Care, Volume 33, Supplement 1, Nov 2009 BUN 10 10 - 20 mg/dL [facility] Creatinine 0.82 0.80 - 1.50 mg/dL [facility] Sodium 138 135 - 145 mmol/L [facility] Potassium 3.3(L) 3.5 - 5.0 mmol/L [facility] Comment: Please note: ??Patients with WBC >100,000 may have falsely elevated Potassium levels. ??For accurate Potassium quantification in these patients send serum separator tube (gold top) for subsequent determinations. ??Contact the Clinical Chemistry Laboratory if there are any questions. Chloride 102 98 - 107 mmol/L [facility] CO2 24 22 - 31 mmol/L [facility] Anion Gap 12 5 - 15 mmol/L [facility] Calcium 8.1(L) 8.5 - 10.5 mg/dL [facility] Total Protein 5.8(L) 6.1 - 8.0 gm/dL [facility] Albumin 3.1(L) 3.2 - 5.2 gm/dL [facility] AST 3,255(H) 0 - 39 unit/L [facility] ALT 3,986(H) 0 - 55 unit/L [facility] Alk Phos 276(H) 40 - 120 unit/L [facility] Total Bilirubin 4.8(H) 0.2 - 1.3 mg/dL [facility] Estimated GFR 110 >=60 mL/min/1. 73 m?? [facility] Comment: The eGFR was calculated using the CKD-EPI equation. As with all creatinine based estimates of kidney function, eGFR values calculated with the CKD-EPI equation are not accurate in patients with acute kidney failure, extremes of body mass or the acutely ill. [email or web address] eGFR 127 >=60 mL/min/1. 73 m?? [facility] Comment: The eGFR was calculated using the CKD-EPI equation. As with all creatinine based estimates of kidney function, eGFR values calculated with the CKD-EPI equation are not accurate in patients with acute kidney failure, extremes of body mass or the acutely ill. [email or web address] Blood specimen (specimen) 03/18/2019 11:00 PM EDT 03/18/2019 11:16 PM EDT Narrative Resulting Agency Comment Spec In Lab Franklin Andrade III, MD CHEMISTRY ORDERABLES [facility] [place] [address] * Smooth Muscle Antibody (03/18/2019 11:00 PM EDT) Sm Muscle Ab Negative Negative [facility] Comment: ADDITIONAL INFORMATION This test was developed and its performance characteristics determined by [facility] in a manner consistent with CLIA requirements. This test has not been cleared or approved by the U.S. Food and Drug Administration. Test Performed by: [facility] [address] [place] [address] Blood specimen (specimen) 03/18/2019 11:00 PM EDT 03/19/2019 9:02 AM EDT Narrative Resulting Agency Comment Spec In Lab Jimenez Pérez DO IMMUNOLOGY ORDERABLE S Performing Organization Address City/[facility]/ZIP Co de Phone Number [facility] [place] [address] * REGI (LEB/CGP) (03/18/2019 11:00 PM EDT) REGI Neg Neg [facility] Comment: REGI negative, however 1:80 Cytoplasmic pattern present using HEP-2 substrate. Is suggestive of autoantibodies to mitochondria or smooth muscle. Blood specimen (specimen) 03/18/2019 11:00 PM EDT 03/19/2019 7:39 AM EDT Narrative Resulting Agency Comment Spec In Lab Jimenez Pérez DO IMMUNOLOGY ORDERABLE S Performing Organization Address [facility]/ZIP Co de Phone Number [facility] [place] [address] * (ABNORMAL) Hepatitis B Core Antibody, Total (03/18/2019 11:00 PM EDT) Hep B Core Ab Positive(A ) Negative [facility] Blood specimen (specimen) 03/18/2019 11:00 PM EDT 03/18/2019 11:16 PM EDT Narrative Resulting Agency Comment Spec In Lab Jimenez Pérez DO CHEMISTRY ORDERABLES Performing Organization Address [facility]/ZIP Co de Phone Number [facility] [place] [address] * (ABNORMAL) Hepatitis B Surface Antigen (03/18/2019 11:00 PM EDT) HepB Surface Ag Positive(A ) Negative [facility] Comment:confirmed positive - ES Blood specimen (specimen) 03/18/2019 11:00 PM EDT 03/18/2019 11:16 PM EDT Narrative Resulting Agency Comment Spec In Lab Jimenez Pérez DO CHEMISTRY ORDERABLES Performing Organization Address [facility] Co de Phone Number [facility] [place] [address] * Hepatitis B Surface Antibody (03/18/2019 11:00 PM EDT) HepB Surface Ab Quant <3.5 IU/L [facility] Comment: HepB Surface Ab Quant: Unvaccinated: < 8.5 IU/L Vaccinated: > 11.5 IU/L HepB Surface Ab Negative [facility] Comment: Patient is presumed to be not vaccinated or immune to HBV infection. Expected Results: Vaccinated: Positive Unvaccinated: Negative Blood specimen (specimen) 03/18/2019 11:00 PM EDT 03/18/2019 11:16 PM EDT Narrative Resulting Agency Comment Spec In Lab Jimenez Pérez DO IMMUNOLOGY ORDERABLE S Performing Organization Address [facility] Co de Phone Number [facility] [place] [address] * Hepatitis C RNA, quantitative, PCR (03/18/2019 11:00 PM EDT) Pathologist [facility] HCV Viral Load <12 IU/mL [facility] LABORATORY HCV Viral Load Result: <12 IU/mL (Target not detected) Indication for Study: Hepatitis C Infection Analysis: The Guillen RealTime HCV assay is an in vitro reverse balance truer polymerase chain reaction (RT-PCR)for the quantitation of hepatitis C viral (HCV) RNA in human serum or plasma (EDTA) from HCV-infected individuals. Sample: plasma (0.7 mL minimum volume) Method: Guillen RealTime HCV Assay Linear Range: 12 IU/mL - 100,000,000IU/mL Note: The Guillen RealTime HCV Assay has been approved by the U.S. Food and Drug Administration. [facility] Comment: [VERIFIED DATE]03.20.19 Verified By:Kimberley Montes De Oca (Electronic Signature) Blood specimen (specimen) 03/18/2019 11:00 PM EDT 03/19/2019 9:29 AM EDT Narrative Resulting Agency Comment Spec In Lab Jimenez Amezcua Beto LIU IMMUNOLOGY ORDERABLE S Performing Organization Address [facility] Co de Phone Number [facility] [place] [address] * (ABNORMAL) Hepatitis A Antibody, Total (03/18/2019 11:00 PM EDT) Hepatitis A Ab Total Indetermin ate(A) Negative [facility] Blood specimen (specimen) 03/18/2019 11:00 PM EDT 03/18/2019 11:16 PM EDT Narrative Resulting Agency Comment Spec In Lab Jimenez Amezcua Pérez IMMUNOLOGY ORDERABLE S Performing Organization Address [facility] Co de Phone Number [facility] [place] [address] * (ABNORMAL) HSV 1 and 2 IgG Antibodies (03/18/2019 11:00 PM EDT) HSV Type 1 Antibody, IgG Pos(A) Neg [facility] HSV Type 2 Antibody, IgG Pos(A) Neg [facility] Blood specimen (specimen) 03/18/2019 11:00 PM EDT 03/19/2019 7:44 AM EDT Narrative Resulting Agency Comment Spec In Lab Jimenez Amezcua Pérez IMMUNOLOGY ORDERABLE S Performing Organization Address [facility]/ZIP Co de Phone Number [facility] [place] [address] * HIV Screen, 4th Generation (Leb/CGP) (03/18/2019 11:00 PM EDT) HIV-1/2 Ab and Ag Negative Negative [facility] Comment: This 4th Generation HIV [...] DO IMMUNOLOGY ORDERABLE S Performing Organization Address City/[facility]/ZIP Co de Phone Number [facility] [place] [address] * EBV PCR Quantitative (03/18/2019 11:00 PM EDT) EBV DNA BY PCR Undetected Undetected IU/mL [facility] Comment: Result in log IU/mL is Undetected. EBV DNA is not detected. ADDITIONAL INFORMATION This laboratory-developed, real-time PCR assay has a quantification range of 100 to 5,000,000 IU/mL (2.00 log IU/mL to 6.70 log IU/mL). This test was developed using an analyte specific reagent. Its performance characteristics were determined by [facility] in a manner consistent with CLIA requirements. This test has not been cleared or approved by the U.S. Food and Drug Administration. Test Performed by: [facility] - [facility] [address] [place] [address] Blood specimen (specimen) 03/18/2019 11:00 PM EDT 03/19/2019 10:56 AM EDT Narrative Resulting Agency Comment Spec In Lab Jimenez Pérez DO IMMUNOLOGY ORDERABLE S Performing Organization Address City/[facility]/ZIP Co de Phone Number [facility] [place] [address] * CMV PCR, Quantitative (03/18/2019 11:00 PM EDT) CMV Quant (Numeric) <50 IU/mL [facility] CMV Quant (Interp) Result: <50 IU/mL (Target Not Detected) Indication for Study: CMV Infection Analysis: The Guillen RealTime CMV test is an in vitro polymerase chain reaction(PCR) assay for the quantitation of cytomegalovirus (CMV) DNA in human EDTA plasma. Sample: plasma (0.9 mL minimum volume) Method: Guillen RealTime CMV Assay Linear Range: 50 IU/mL ? 156,000,000 IU/mL Note: The Guillen RealTime CMV Assay has been approved by the U.S. Food and Drug Administration. [facility] Blood specimen (specimen) 03/18/2019 11:00 PM EDT 03/20/2019 10:46 AM EDT Narrative Resulting Agency Comment Spec In Lab Jimenez Pérez DO IMMUNOLOGY ORDERABLE S Performing Organization Address [facility]/ZIP Co de Phone Number [facility] [place] [address] * (ABNORMAL) Acetaminophen level (03/18/2019 11:00 PM EDT) Acetamin Lvl <5(L) 10 - 30 mg/L [facility] Comment: Levels >150 mg/L at 4 hours post ingestion or >75 mg/L at 8 hours post ingestion are often an indication for N-Acetylcysteine. Blood specimen (specimen) 03/18/2019 11:00 PM EDT 03/18/2019 11:16 PM EDT Narrative Resulting Agency Comment Spec In Lab Jimenez Pérez DO CHEMISTRY ORDERABLES Performing Organization Address [facility] Co de Phone Number [facility] [place] [address] * (ABNORMAL) CRP, acute inflammation (03/18/2019 11:00 PM EDT) CRP 64.7(H) <=4.9 mg/L [facility] Blood specimen (specimen) 03/18/2019 11:00 PM EDT 03/18/2019 11:16 PM EDT Narrative Resulting Agency Comment Spec In Lab Jimenez Pérez DO CHEMISTRY ORDERABLES Performing Organization Address City/[facility]/ZIP Co de Phone Number [facility] [place] [address] * (ABNORMAL) Sedimentation rate (03/18/2019 11:00 PM EDT) Sed Rate 22(H) 0 - 15 mm/hr [facility] Blood specimen (specimen) 03/18/2019 11:00 PM EDT 03/18/2019 11:16 PM EDT Narrative Resulting Agency Comment Spec In Lab Jimenez Pérez DO HEMATOLOGY ORDERABLE S Performing Organization Address City/[facility] Co de Phone Number [facility] [place] [address] * Ceruloplasmin (03/18/2019 11:00 PM EDT) Ceruloplasmin 30.0 15.0 - 30.0 mg/dL [facility] Blood specimen (specimen) 03/18/2019 11:00 PM EDT 03/18/2019 11:16 PM EDT Narrative Resulting Agency Comment Spec In Lab Jimenez Pérez DO CHEMISTRY ORDERABLES Performing Organization Address [facility] Co de Phone Number [facility] [place] [address] * Blood culture (03/18/2019 11:00 PM EDT) Blood Culture No growth at 5 days. [facility] Blood specimen (specimen) 03/18/2019 11:00 PM EDT 03/19/2019 12:14 AM EDT Comment:RIGHT IV Narrative Resulting Agency Comment Spec In Lab Ky Osman MD MICROBIOLOGY - BLOOD ORDERABLES Performing Organization Address [facility] Co de Phone Number [facility] [place] [address] documented in this encounter Visit Diagnoses Diagnosis Sepsis, due to unspecified organism IVDU (intravenous drug user) Other, mixed, or unspecified nondependent drug abuse, unspecified Sepsis Chronic hepatitis C without hepatic coma DRESS syndrome Dermatitis due to drugs and medicines taken internally IVDU (intravenous drug user) Other, mixed, or unspecified nondependent drug abuse, unspecified History of alcohol use Bacteremia documented in this encounter Admitting Diagnoses Diagnosis Sepsis documented in this encounter Administered Medications Inactive Administered Medications - up to 3 most recent administrations Medication Order MAR Action Action Date Dose Rate Site acetylcysteine (ACETADOTE) 3,020 mg in dextrose 5% 500 mL infusion 3,020 mg (rounded from 3,010 mg = 50 mg/kg/dose ? 60.2 kg), Intravenous, ONCE, 1 dose, On Tue03/19/19 at 0100, Administer over 4 Hours New 03/19/2019 1:13 AM EDT 3,020 mg 125 mL/hr acetylcysteine (ACETADOTE) 6,000 mg in dextrose 5% 1,000 mL infusion 6,000 mg, Intravenous, ONCE, 1 dose, On Tue03/19/19 at 0645, Administer over 16 Hours 03/19/2019 8:11 AM EDT 6,000 mg 62.5 mL/hr acetylcysteine (ACETADOTE) 9,040 mg in dextrose 5% 200 mL infusion 9,040 mg (rounded from 9,030 mg = 150 mg/kg/dose ? 60.2 kg), Intravenous, ONCE, 1 dose, On Tue03/19/19 at 0000, Administer over 1 Hours 03/19/2019 12:03 AM EDT 9,040 mg 200 mL/hr acyclovir (ZOVIRAX) 500 mg in sodium chloride 0.9% 260 mL 500 mg, Intravenous, EVERY 8 HOURS, First dose on Tue03/19/19 at 0100, Until Discontinued, Administer over 60 Minutes, Indication for (Active or Suspected): GI/Intra-abdominal New 03/20/2019 11:38 AM EDT 500 mg 260 mL/hr 03/20/2019 3:50 AM EDT 500 mg 260 mL/hr 03/19/2019 8:22 PM EDT 500 mg 260 mL/hr calcium carbonate (Tums) chewable tablet 1,000 mg 1,000 mg, Oral, 2 TIMES DAILY PRN, Starting on Tue03/21/19 at 1450, Until Tue03/22/19 at 1355, Heartburn, Routine DAPTOmycin (CUBICIN) 360 mg in sodium chloride 0.9% 57.2 mL 360 mg (rounded from 361.2 mg = 6 mg/kg/dose ? 60.2 kg Adjusted weight), Intravenous, at 114.4 mL/hr, EVERY 24 HOURS, First dose on Tue03/19/19 at 1700, Until Discontinued, Routine New Bag 03/19/2019 6:56 PM EDT 360 mg 114.4 mL/ hr enoxaparin (LOVENOX) injection 40 mg 40 mg, Subcutaneous, NIGHTLY, First dose on Tue03/18/19 at 2245, Until Discontinued, Routine Given 03/19/2019 8:21 PM EDT 40 mg Given 03/19/2019 5:08 AM EDT 40 mg glecaprevir-pibrentasvir (Mavyret) 100-40 mg Tab 3 tablet 3 tablet, Oral, DAILY WITH DINNER, First dose on Tue03/20/19 at 1700, Until Discontinued, Administer with food Given 03/21/2019 5:00 PM EDT 3 tablets Given 03/20/2019 6:08 PM EDT 3 tablets ibuprofen (ADVIL;MOTRIN) tablet 400 mg 400 mg, Oral, EVERY 6 HOURS PRN, Starting on Tue03/20/19 at 0949, Until [facility] 03/22/19 at 1355, Pain, Administer orally with milk or food to minimize GI irritation. Maximum dose of 3200 mg from all sources in 24 hours, Routine Given 03/20/2019 8:56 PM EDT 400 mg Given 03/20/2019 10:57 AM EDT 400 mg ketorolac (TORADOL) injection 15 mg 15 mg, Intravenous, ONCE, 1 dose, On Tue03/20/19 at 0045, STAT Given 03/20/2019 12:27 AM EDT 15 mg ketorolac (TORADOL) injection 15 mg 15 mg, Intravenous, ONCE, 1 dose, On Tue03/20/19 at 1145, STAT Given 03/20/2019 11:38 AM EDT 15 mg lactated Ringers 1,000 mL IV bolus at 2,000 mL/hr, Intravenous, ONCE, 1 dose, On Tue03/18/19 at 2245 New Bag 03/18/2019 11:24 PM EDT 2000 mL/hr lactated ringers infusion 100 mL/hr, Intravenous, CONTINUOUS, Starting on Tue03/19/19 at 0500, Until Tue03/19/19 at 2108 New Bag 03/19/2019 9:11 AM EDT 100 mL/hr 100 mL/hr New Bag 03/19/2019 5:19 AM EDT 100 mL/hr 100 mL/hr magnesium sulfate 2 g in sterile water 50 mL 2 g, Intravenous, ONCE, 1 dose, On Tue03/19/19 at 0915, Administer over 120 Minutes New Bag 03/19/2019 10:34 AM EDT 2 g 25 mL/hr nicotine (NICODERM CQ) 21 mg/24 hr patch 21 mg 21 mg (1 patch), Transdermal, DAILY, First dose on Tue03/19/19 at 0900, Until Discontinued, Routine Patch Applied 03/22/2019 9:33 AM EDT 21 mg 03- Shoulder (Left) Patch Applied 03/21/2019 10:45 AM EDT 21 mg 05- Back Upper (Left) Patch Applied 03/20/2019 9:29 AM EDT 21 mg 05- Back Upper (Left) nicotine (NICODERM CQ) 21 mg/24 hr patch Patch Removal Transdermal, DAILY, First dose on Tue03/19/19 at 0900, Until Discontinued, Remove nicotine 21 mg/24 hr patch nicotine (NICODERM CQ) 21 mg/24 hr patch Patch Verification Transdermal, 2 TIMES DAILY, First dose on Tue03/19/19 at 1130, Until Discontinued, Verify nicotine 21 mg/24 hr patch oxyCODONE (ROXICODONE) immediate release tablet 5 mg 5 mg, Oral, ONCE, 1 dose, On Tue03/19/19 at 1615, Routine Given 03/19/2019 4:21 PM EDT 5 mg phytonadione (vitamin K1) (AQUA-MEPHYTON) 10 mg in sodium chloride 0.9% 51 mL 10 mg, Intravenous, ONCE, 1 dose, On Tue03/19/19 at 1730, Administer over 60 Minutes, Administer by slow IV infusion over 60 minutes New Bag 03/19/2019 5:35 PM EDT 10 mg 51 mL/hr piperacillin-tazobactam (ZOSYN) 3.375 g vial attach to sodium chloride 0.9% 50 mL Mini-Bag Plus 3.375 g, Intravenous, EVERY 8 HOURS, First dose on Tue03/18/19 at 2330, Until Discontinued, Administer over 4 Hours, Warning Vesicant/Irritant Medication Do not administer or Y-site with lactated ringers., Indication for (Active or Suspected): Bacteremia/Sepsis New Bag 03/20/2019 6:44 AM EDT 3.375 g 1 2.5 mL/hr New Bag 03/19/2019 10:42 PM EDT 3.375 g 12.5 mL/hr New Bag 03/19/2019 4:22 PM EDT 3.375 g 12.5 mL/hr potassium chloride (K-DUR/KLOR-CON) extended release tablet 40 mEq 40 mEq, Oral, EVERY 4 HOURS, 2 doses, First dose on Tue03/19/19 at 0030, Last dose on Tue03/19/19 at 0430, Routine Given 03/19/2019 5:07 AM EDT 40 mEq Given 03/19/2019 12:19 AM EDT 40 mEq potassium chloride (K-DUR/KLOR-CON) extended release tablet 40 mEq 40 mEq, Oral, ONCE, 1 dose, On Tue03/21/19 at 0800, 20 mEq tablet may be dissolved in water for administration, Routine Given 03/21/2019 9:49 AM EDT 40 mEq prochlorperazine (COMPAZINE) injection 5 mg 5 mg, Intravenous, EVERY 8 HOURS PRN, Starting on Tue03/20/19 at 2058, Until Tue03/22/19 at 1355, Nausea, STAT Given 03/21/2019 6:45 PM EDT 5 mg sodium chloride 0.9 % flush 5 mL 5 mL, Intravenous, 2 TIMES DAILY, First dose on Tue03/18/19 at 2245, Until Discontinued, Routine Given 03/21/2019 10:46 AM EDT 5 mLs Given 03/20/2019 9:30 AM EDT 5 mLs Given 03/19/2019 8:15 PM EDT 5 mLs sucralfate (Carafate) (100 mg/mL) oral liquid 1 g 1 g, Oral, ONCE, 1 dose, On Tue03/21/19 at 1530, Routine Given 03/21/2019 8:24 PM EDT 1 g tenofovir (VIREAD) tablet 300 mg 300 mg, Oral, DAILY, First dose on Tue03/19/19 at 1800, Until Discontinued, Routine, Indication for (Active or Suspected): Other (See comment) Given 03/22/2019 9:32 AM EDT 300 mg Given 03/21/2019 9:50 AM EDT 300 mg Given 03/20/2019 9:29 AM EDT 300 mg traZODone (DESYREL) tablet 50 mg 50 mg, Oral, NIGHTLY, First dose on Tue03/18/19 at 2300, Until Discontinued, Routine Given 03/21/2019 8:25 PM EDT 50 mg Given 03/20/2019 8:49 PM EDT 50 mg Given 03/19/2019 8:21 PM EDT 50 mg documented in this encounter Active and Recently Administered Medications Times are shown in EDT. Scheduled Medication Order 03/20/2019 03/21/2019 03/22/2019 acyclovir (ZOVIRAX) 500 mg in sodium chloride 0.9% 260 mL (CANCELED) 500 mg, Intravenous, EVERY 8 HOURS, First dose on Tue03/19/19 at 0100, Until Discontinued, Administer over 60 Minutes, Indication for (Active or Suspected): GI/Intra-abdominal 0350 (New Bag - Provider: Tr Carlos RN)0450 (Stopped - Provider: Tr Carlos, VI)1138 (New Bag - Provider: Mildred Lance, VI)1238 (Stopped - Provider: Mildred Lance RN) enoxaparin (LOVENOX) injection 40 mg 40 mg, Subcutaneous, NIGHTLY, First dose on Tue03/18/19 at 2245, Until Discontinued, Routine 2048 (Not Given - Provider: Ekta Pitt RN - Reason: Patient/family refused) 2100 (Not Given - Provider: Magnus Martinez RN - Reason: Patient/family refused) glecaprevir-pibrentas vir (Mavyret) 100-40 mg Tab 3 tablet 3 tablet, Oral, DAILY WITH DINNER, First dose on Tue03/20/19 at 1700, Until Discontinued, Administer with food 1808 (Given - Provider: Mauro Sellers, VI) 1700 (Given - Provider: Rachel Cox RN) ketorolac (TORADOL) injection 15 mg (COMPLETED) 15 mg, Intravenous, ONCE, 1 dose, On Tue03/20/19 at 0045, STAT 0027 (Given - Provider: Tr Carlos RN) ketorolac (TORADOL) injection 15 mg (COMPLETED) 15 mg, Intravenous, ONCE, 1 dose, On Tue03/20/19 at 1145, STAT 1138 (Given - Provider: Mildred Lance RN) nicotine (NICODERM CQ) 21 mg/24 hr patch 21 mg(Linked Group 1) 21 mg (1 patch), Transdermal, DAILY, First dose on Tue03/19/19 at 0900, Until Discontinued, Routine 0929 (Patch Applied - Provider: Adilene Pettit RN) 1045 (Patch Applied - Provider: Rachel Cox RN) 0933 (Patch Applied - Provider: Emma Gómez, VI) nicotine (NICODERM CQ) 21 mg/24 hr patch Patch Removal(Linked Group 1) Transdermal, DAILY, First dose on Tue03/19/19 at 0900, Until Discontinued, Remove nicotine 21 mg/24 hr patch 0900 (Patch Removed - Provider: Adilene Pettit RN) 0900 (Patch Removed - Provider: Rachel Cox RN) 0933 (Patch Removed - Provider: Emma Gómez RN) nicotine (NICODERM CQ) 21 mg/24 hr patch Patch Verification(Linked Group 1) Transdermal, 2 TIMES DAILY, First dose on Tue03/19/19 at 1130, Until Discontinued, Verify nicotine 21 mg/24 hr patch 0900 (Patch (dose and location) verified - Provider: Adilene Pettit RN)2100 (Patch (dose and location) verified - Provider: Ekta Pitt RN) 0900 (Patch (dose and location) verified - Provider: Rachel Cox RN)2100 (Patch (dose and location) verified - Provider: Magnus Martinez RN) 0933 (Patch (dose and location) verified - Provider: Emma Gómez RN) piperacillin-tazobact am (ZOSYN) 3.375 g vial attach to sodium chloride 0.9% 50 mL Mini-Bag Plus (CANCELED) 3.375 g, Intravenous, EVERY 8 HOURS, First dose on Tue03/18/19 at 2330, Until Discontinued, Administer over 4 Hours, Warning Vesicant/Irritant Medication Do not administer or Y-site with lactated ringers., Indication for (Active or Suspected): Bacteremia/Sepsis 0242 (Stopped - Provider: Tr Carlos, RN)0644 (New Bag - Provider: Tr Carlos RN)1044 (Stopped - Provider: Mildred Lance RN) potassium chloride (K-DUR/KLOR-CON) extended release tablet 40 mEq (COMPLETED) 40 mEq, Oral, ONCE, 1 dose, On Tue03/21/19 at 0800, 20 mEq tablet may be dissolved in water for administration, Routine 0949 (Given - Provider: Rachel Cox RN) sodium chloride 0.9 % flush 5 mL 5 mL, Intravenous, 2 TIMES DAILY, First dose on Tue03/18/19 at 2245, Until Discontinued, Routine 0930 (Given - Provider: Adilene Pettit RN)2100 (Not Given - Provider: Ekta Pitt RN - Reason: See comment - Comment: administered upon assessment) 104 (Given - Provider: Rachel Cox RN)2100 (Not Given - Provider: Magnus Martinez RN - Reason: Order parameters not met - Comment: no access) 0933 (Not Given - Provider: Emma Gómez RN - Reason: See comment - Comment: No IV access, ok per team) sucralfate (Carafate) (100 mg/mL) oral liquid 1 g (COMPLETED) 1 g, Oral, ONCE, 1 dose, On Tue03/21/19 at 1530, Routine 2023 (Given - Provider: Magnus Martinez RN) tenofovir (VIREAD) tablet 300 mg 300 mg, Oral, DAILY, First dose on Tue03/19/19 at 1800, Until Discontinued, Routine, Indication for (Active or Suspected): Other (See comment) 0929 (Given - Provider: Adilene Pettit RN) 0950 (Given - Provider: Rachel Cox RN) 0932 (Given - Provider: Emma Gómez RN) traZODone (DESYREL) tablet 50 mg 50 mg, Oral, NIGHTLY, First dose on 03/18/19 at 2300, Until Discontinued, Routine 2048 (Given - Provider: Ekta Pitt, VI) 2024 (Given - Provider: Magnus Martinez RN) PRN Medication Order 03/20/2019 03/21/2019 03/22/2019 calcium carbonate (Tums) chewable tablet 1,000 mg 1,000 mg, Oral, 2 TIMES DAILY PRN, Starting on Tue03/21/19 at 1450, Until [place]orene 03/22/19 at 1355, Heartburn, Routine ibuprofen (ADVIL;MOTRIN) tablet 400 mg 400 mg, Oral, EVERY 6 HOURS PRN, Starting on Tue03/20/19 at 0949, Until [place] 03/22/19 at 1355, Pain, Administer orally with milk or food to minimize GI irritation. Maximum dose of 3200 mg from all sources in 24 hours, Routine 1057 (Given - Provider: Mildred Lance, VI)6 (Given - Provider: Ekta Pitt RN) lidocaine (XYLOCAINE) 10 mg/mL (1 %) injection 3 mg 3 mg (0.3 mL), Subcutaneous, ONCE PRN, 1 dose, Starting on Tue03/18/19 at 2228, Until [place]orene 03/22/19 at 1355, for discomfort with PIV insertion, Routine prochlorperazine (COMPAZINE) injection 5 mg 5 mg, Intravenous, EVERY 8 HOURS PRN, Starting on Tue03/20/19 at 2058, Until [place]ne 03/22/19 at 1355, Nausea, STAT 1845 (Given - Provider: Rachel Cox RN) sodium chloride 0.9 % flush 5-20 mL 5-20 mL, Intravenous, EVERY 1 MIN PRN, Starting on Tue03/18/19 at 2228, Until [place]orene 03/22/19 at 1355, flush, Flush pertains to all indwelling lines. Flush per protocol found in the job aid using the link provided on this medication record., Routine Linked Groups Order Group 1: nicotine (NICODERM CQ) 21 mg/24 hr patch 21 mgJump to med 21 mg (1 patch), Transdermal, DAILY, First dose on Tue03/19/19 at 0900, Until Discontinued, Routine And nicotine (NICODERM CQ) 21 mg/24 hr patch Patch VerificationJump to med Transdermal, 2 TIMES DAILY, First dose on Tue03/19/19 at 1130, Until Discontinued, Verify nicotine 21 mg/24 hr patch And nicotine (NICODERM CQ) 21 mg/24 hr patch Patch RemovalJump to med Transdermal, DAILY, First dose on Tue03/19/19 at 0900, Until Discontinued, Remove nicotine 21 mg/24 hr patch documented in this encounter Care Teams Director Of Vocational Guidance Relationship Specialty Start Date End Date Aileen Macias APRN [address] [place] [address] PCP - General Family Medicine 09/04/18 02/10/21 documented as of this encounter
--- OUTSIDE RECORDS SUMMARY | 2024-06-03 20:22 | XMS_ITS | Encounter Summary ---
Author Organization [facility] [place] [address] Care Team Providers Care Geospatial Developer Name Role Phone Aileen Macias APRN Primary Care Provider [phone] Encounter Details Date Type Department Care Team (Late st Contact Info) Description 03/19/2019 12:45 AM EDT Ancillary Procedure [place] [id number] Social History Tobacco Use Types Packs/Day Years Used Date Smoking Tobacco: Every Day Cigarettes Sex and Gender Information Value Date Recorded Sex Assigned at Not on file Gender Identity Not on file Sexual Orientation Not on file documented as of this encounter Plan of Treatment Not on file documented as of this encounter Procedures Procedure Name Priority Date/Time Associated Diagnosis Comments REQUEST FOR 2ND READ CT ABDOMEN AND PELVIS Routine 03/18/2019 11:49 PM EDT documented in this encounter Results * Request For 2nd Read CT Abdomen [...] report, please contact the number below. ? Electronically signed by: Kellee Sheikh [facility] ([phone]), at 03/19/2019 9:53 AM Narrative 03/19/2019 9:53 AM EDT EXAMINATION: ??REQUEST [...] unknown. Study performed March 18, 2019 at [facility]. COMPARISON: None FINDINGS: Lower chest: 5 mm [...] Volume unknown.Study performed March 18, 2019 at [facility]. COMPARISON: None FINDINGS: Lower chest: 5 mm [...] number below. Electronically signed by: Kellee Sheikh [facility] ([phone]),at 03/19/2019 9:53 AM Ky Osman MD IMG OUTSIDE INTERPRE TATION ORDERABLES documented in this encounter Visit Diagnoses Not on filedocumented in this encounter Care Teams Geospatial Developer Relationship Specialty Start Date End Date Aileen Macias, SENIOR DATABASE PROGRAMMER [address] [place] [address] PCP - General Family Medicine 09/04/18 02/10/21 documented as of this encounter
--- OUTSIDE RECORDS SUMMARY | 2024-06-03 20:22 | XMS_ITS | Encounter Summary ---
Author Organization [facility] Address [facility] [place] [address] Care Team Providers Care Collection Card Clerk Name Role Phone Chon Motta MD Primary Care Provider Reason for Referral * Consultation (Routine) - Closed Specialty Diagnoses / Procedures Referred By Contty pacheco Referred To Contact Dermatology Diagnoses Prurigo nodularis Dermatitis Actinic keratosis Vitiligo Chon Motta MD [address] [place] [address] [facility] [address] [place] [address] Referral ID Status Reason Start Date Expiration Date V isits Requested Visits Authorized [id number] Closed Consult, Test & Treat 01/20/2022 01/20/2023 6 6 Encounter Details Date Type Department Care Team (Latest Contact Info) Description 01/20/2022 Transcribe Orders eDH Incoming Referrals [phone] Chon Motta MD [address] [place] [address] Prurigo nodularis; Dermatitis; Actinic keratosis; Vitiligo Social History Tobacco Use Types Packs/Day Years [...] as of this encounter Plan of Treatment Scheduled Referrals Name Type Priority Associated Diagnoses Order Schedule Referral to Dermatology Outpatient Referral Routine Prurigo nodularis Dermatitis Actinic keratosis Vitiligo Ordered: 01/20/2022 documented as of this encounter Visit Diagnoses Diagnosis Prurigo nodularis Lichenification and lichen simplex chronicus Dermatitis Contact dermatitis and other eczema, due to unspecified cause Actinic keratosis Vitiligo documented in this encounter Care Teams Collection Card Clerk Relationship Specialty Start Date End Date Chon Motta MD [address] [place] [address] PCP - General Family Medicine 02/11/21 documented as of this encounter
--- OUTSIDE RECORDS SUMMARY | 2024-06-03 20:22 | XMS_ITS | Encounter Summary ---
Author Organization Formerly [facility] [place] [address] Care Team Providers Care Cadd Operator Name Role Phone Aileen Macias APRN Primary Care Provider [phone] Encounter Details Date Type Department Care Team (Late st Contact Info) Description 02/10/2021 Telephone Dermatology at [address] [place] [address] Alana Allen MD [address] [facility] [place] [address] Social History Tobacco Use Types Packs/Day Years [...] encounter Miscellaneous Notes * Telephone Encounter - Shanta Pavon - 02/10/2021 11:45 AM EDT I attempted to contact patient to confirm visit for tomorrow and review check-in procedures. I was not able to speak with anyone when I called and I was not able to leave a message. documented in this encounter Plan of Treatment Not on file documented as of this encounter Visit Diagnoses Not on filedocumented in this encounter Care Teams Cadd Operator Relationship Specialty Start Date End Date Aileen Macias APRN [address] [place] [address] PCP - General Family Medicine 09/04/18 02/10/21 documented as of this encounter
--- OUTSIDE RECORDS SUMMARY | 2024-06-03 20:22 | XMS_ITS | Encounter Summary ---
Author Organization [facility] Address [facility] [place] [address] Care Team Providers Care Urologist Name Role Phone Chon Motta MD Primary Care Provider [phone] Encounter Details Date Type Department Care Team (Latest Contact Info) Description 05/06/2021 8:47 PM EDT - 05/06/2021 11:59 PM EDT Hospital [place] [phone] Discharge Disposition: Home Social History Tobacco Use [...] on file documented as of this encounter Medications at Time of Discharge Medication Sig Dispensed Refills Start Date End Date ibuprofen (ADVIL;MOTRIN) 400 mg Tablet Take 1 tablet by mouth every 6 hours as needed for Pain. 30 tablet 12 03/22/2019 erythromycin with ethanoL (EMGEL) 2 % GelIndications:Other eczema,Actinic keratoses Apply topically daily. 30 g 04/08/2021 mupirocin (BACTROBAN) 2 % OintmentIndications:Oth er eczema,Actinic keratoses Apply topically 3 times daily. 22 g 04/08/2021 FLUoxetine (PROzac) 20 mg Capsule Take 40 mg by mouth daily. 02/25/2021 Suboxone 8-[address] 2 Film under the tongue daily. 03/04/2021 triamcinolone (KENALOG) 0.1 % Ointment Apply topically 2 times daily. 30 g 03/11/2021 ketoconazole (NIZORAL) 2 % Cream Apply topically daily. 60 g 02/11/2021 documented as of this encounter Progress Notes * Abi Miller LPN - 05/06/2021 11:59 PM EDT Message left with mom to return my call for biopsy results. documented in this encounter Plan of Treatment Not on file documented as of this encounter Procedures Procedure Name Priority Date/Time Associated Diagnosis Comments SURGICAL PATHOLOGY REPORT Routine 05/06/2021 11:55 AM EDT documented in this encounter Results * Surgical Pathology Report (05/06/2021 11:55 AM EDT) FINAL DIAGNOSIS (AP) [id number] ? Location: [facility] The signing pathologist has (i) examined the relevant preparation(s) for the specimen(s) and (ii) rendered or confirmed the diagnosis(es). . ?Surgical Pathology DIAGNOSIS Left palm, skin punch biopsy: - Mild acanthosis and hypergranulosis ?? (see discussion) Electronically signed by: ?Artemio Wyatt MD Verified: ??05/15/2021 14:[address] Performed at: ??-[facility]. [facility]ology, [place], [place] DISCUSSION The subtle findings could represent a partially-treated versus chronic eczematous or contact dermatitis. There is not enough epidermal edema or abundant eosinophils to further substantiate this impression, but features of psoriasis are not identified. Otherwise, there is scant amorphous debris in the stratum corneum, parakeratin, and a rare neutrophil, but no evidence of tinea. ADDITIONAL STUDIES PASd staining was performed to assess for the possibility of fungal infection, and was negative for intracorneal fungal elements. ? A Marianela stain is negative for bacteria. ??Multiple step-leveled sections are examined. SPECIMEN(S) SUBMITTED A - left palm, biopsy (1) CLINICAL INFORMATION Verrucous hyperpigmented hyperkeratotic scaly plaques on palms, soles, with hyperkeratotic fingernails with subungual debris rule out verruca versus tinea versus eczema versus psoriasis versus other SPECIMEN PROCESSING A - Labeled/Fixative: Patient demographics, formalin. Quantity/Size: ??Single, 0.4 cm. Tissue Description: Ramos-black keratotic skin punch excised to a depth of approximately 0.45 cm. Sections/Processin g: Inked, bisected and entirely submitted in 1 cassette labeled A1. ??MLL 05/15/2021 2:13 PM EDT [facility] SPECIMEN FROM SKIN / Unknown 05/06/2021 11:55 AM EDT 05/06/2021 11:55 AM EDT Alana Allen MD PATHOLOGY/CYTOLOGY ORDERABLES [facility] [place] [address] documented in this encounter Visit Diagnoses Not on filedocumented in this encounter Care Teams Urologist Relationship Specialty Start Date End Date Chon Motta MD [address] [place] [address] PCP - General Family Medicine 02/11/21 documented as of this encounter
--- OUTSIDE RECORDS SUMMARY | 2024-06-03 20:22 | XMS_ITS | Encounter Summary ---
Author Organization [facility] [place] [address] Care Team Providers Care Switchboard Operator Assistant Name Role Phone Chon Motta MD Primary Care Provider [phone] Reason for Referral * Consultation (Routine) - Closed Specialty Diagnoses / Procedures Referred By Yogi t Referred To Contact Rheumatology Diagnoses Arthritis Natan Gomez MD [facility] [address] [place] [address] [facility] Rheumatology [address] [place] [id number] Referral ID Status Reason Start Date Expiration Date V isits Requested Visits Authorized [id number] Closed Consult, Test & Treat 04/12/2022 04/12/2023 1 1 Reason for Visit * Reason Comments Follow-up * Consultation (Routine) - Closed Specialty Diagnoses / Procedures Referred By Contac t Referred To Contact Dermatology Diagnoses Prurigo nodularis Dermatitis Actinic keratosis Vitiligo Chon Motta MD [facility] [place] [address] [facility] Dermatology [address] [place] [address] Referral ID Status Reason Start Date Expiration Date V isits Requested Visits Authorized [id number] Closed Consult, Test & Treat 01/20/2022 01/20/2023 6 6 Encounter Details Date Type Department Care Team (Late st Contact Info) Description 04/09/2022 2:40 PM EDT Office Visit Dermatology at [facility] [address] [place] [address] Natan Gomez MD [facility] [address] [place] [address] Keratoderma (Primary Dx); Vitiligo; Prurigo nodularis; Arthritis Social History Tobacco Use Types Packs/Day Years [...] as of this encounter Progress Notes * Natan Gomez MD - 04/09/2022 2:40 PM EDT Images from the original note were not included. DEPARTMENT OF DERMATOLOGY Medical Dermatology Clinic Provider: Natan Gomez MD Patient's preferred name Kevin Preferred contact method for results [x]Phone []myD-H []Letter Detailed phone message OK? 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 Patient returns to clinic today for follow-up evaluation of thickened skin on his palms and soles. He states that he first noticed changes to his hands ~15-20 years ago. Kevin states that today is a good day for his hands and feet, and they are softer than normal. He was prescribed a topical steroid by Dr. Allen, which he applies on a semi-regular basis. He admits that he picks at and rubs his hands often. He has been making a concerted effort to moisturize more regularly and state that in the past he has used Mushers secret paw protection. He has a history of significant joint pains. He reports that he was diagnosed with arthritis when he was 10-11 years old. This has been an ongoing problem throughout his life and worsened with time. The worst areas are his hips, knees, and fingers at time. When he was younger, it was predominantly his hips and right knee. His joint pain is at its worst in the morning or after significant periods of rest. 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 He has had Kevin also notes 2 spots, one on his nose and one on his left cheek that he picks at constantly. These were previously treated with LN2, which was helpful. Kevin has a history of vitiligo, but this is mostly stable at this time and not bothersome. He tries to be careful about sun protection, but given the hours he spends outside with his job, he does get occasional delvalle. Last visit at Dermatology: Visit date not found Last visit with this provider: Visit date not found Medications: Reviewed in eD-H Allergies: Reviewed in eD-H Skin Examination: Focused skin examination of the scalp, face, upper extremities, abdomen, lower legs, and feet was normal with the exception of the findings below. Assessment/Plan #. Favor Keratoderma - Thickened plaques on the palmar and plantar surfaces, predominantly on the hands - left greater than right but with slight involvement of the feet. Enlarged fingers and joints of the hands. DDx: keratoderma with underlying arthritis vs psoriasis/psoriatic arthritis - Reviewed exam findings and differential in detail. - Labs today: ESR, CRP, REGI, Rheumatoid Factor, and HLA-B27. - Pending lab results, will consider referral to rheumatology. - We reviewed the importance of regular moisturization. I recommend a moisturizer containing 20-40%urea. One good product is Cetaphil Rough and Bumpy. I recommend applying this multiple times daily,before bed, and after every hand washing. #. Vitiligo - Diffuse depigmented patches, approximately 50% BSA. - Patient is not cosmetically or socially bothered by this currently and defers treatment at this time. - We reviewed the importance of diligent sun protection including sunscreen application and sun protective clothing. - Patient's job necessitates significant sun exposure (engineering technology instructor) #. Prurigo Nodularis - Hyperkeratotic papules on the left cheek (x1) and right nose (x1). - The lesions appear secondary to repeated trauma, such as rubbing or scratching at a site. I reviewed the importance of resisting the urge to manipulate the lesions to hasten their resolution. - Joint decision to proceed with cryotherapy to particularly bothersome lesions today. - Recommended covering the areas with silicone sheets. Procedure: Destruction of lesions with cryotherapy. Locations: As noted above Number: 2 Discussed procedure and expectations including risks and benefits. Verbal consent obtained. Treatedwith LN2. There were no complications. Patient tolerated the procedure well. Post-procedure expectations and wound care were reviewed. Other: ??? Sun protection discussed (protective clothing and SPF30+ broad-spectrum sunscreen) ??? OTC skin products discussed RTC: 3 months for prurigo/keratoderma/vitiligo f/u [x]Note routed to pathology secretary/transcriptionist []Recall placed in scheduling system []Appointment scheduled at checkout Scribe attestation: CORNELIUS Baer has performed the documentation for this encounter in the presence of and acting as a scribe for Natan Gomez MD. I performed the above scribed service and agree with the accuracy of the documentation in this encounter. Reviewed and signed by: Natan Gomez MD Dermatology [facility] Patient seen and evaluated with staff fruit trimmer: Matthew Mishra MD Dermatology [facility] * Matthew Mishra MD - 04/09/2022 2:40 PM EDT I directly supervised Dr. Gomez in the care of this patient. I saw and evaluated this patient with Dr. Gomez. He presented the history and physical exam detailsto me, then we saw the patient together and I confirmed these findings. I agree with details as written. My physical examination confirms Dr. Gomez' findings. The assessment and plan were formulated in discussion with me at the time of visit and I agree withthem as documented. MATTHEW MISHRA MD FAAD Staff Physician documented in this encounter Plan of Treatment Scheduled Referrals Name Type Priority Associated Diagnoses Order Schedule Referral to Rheumatology Outpatient Referral Routine Arthritis Ordered: 04/12/2022 documented as of this encounter Results * (ABNORMAL) Sedimentation rate (04/09/2022 4:12 PM EDT) Pathologist [facility] Sed Rate 42(H) 2 - 28 mm/hr [facility] Comment: Effective October 17, 2019 new capillary photometric technology has resulted in a change in reference ranges. It is recommended that each ESR result be reviewed with its own age appropriate reference range. Blood 04/09/2022 4:12 PM EDT 04/09/2022 4:16 PM EDT Narrative Resulting Agency Comment Spec In Lab Matthew Mishra MD HEMATOLOGY ORDERABLE S Performing Organization Address [facility] Co de Phone Number [facility] [place] [address] * Rheumatoid factor, quant (04/09/2022 4:12 PM EDT) RF <10 <=14 IU/mL [facility] Blood 04/09/2022 4:12 PM EDT 04/09/2022 4:16 PM EDT Narrative Resulting Agency Comment Spec In Lab Matthew Mishra MD IMMUNOLOGY ORDERABLE S Performing Organization Address [facility]/ZIP Co de Phone Number [facility] [place] [address] * (ABNORMAL) CRP, acute inflammation (04/09/2022 4:12 PM EDT) CRP 7.4(H) <=4.9 mg/L [facility] Blood 04/09/2022 4:12 PM EDT 04/09/2022 4:16 PM EDT Narrative Resulting Agency Comment Spec In Lab Matthew Mishra MD CHEMISTRY ORDERABLES Performing Organization Address [facility] de Phone Number [facility] [place] [address] * HLA-B27 (04/09/2022 4:12 PM EDT) HLA-B27 Negative [facility] HLA-B27 Interp HLA B27 antigen was not detected. Method: Flow Cytometry Reference: 1.Jolynn DA, Mat PAULINO, Porsha Chow, et al: Ankylosing spondylitis and HLA-27. Lancet 1973;1:904-907 2.Loki Gamez, Kalie CAZARES: HLA-B27 typing by use of flow cytofluorometry . Clin Chem 1987;33:1619-16 23 [facility] WBC 7.0 4.0 - 9.5 x10(3)/mc L [facility] Blood 04/09/2022 4:12 PM EDT 04/09/2022 4:16 PM EDT Narrative Resulting Agency Comment Spec In Lab Matthew Mishra MD HEMATOLOGY ORDERABLE S Performing Organization Address [facility] de Phone Number [facility] [place] [address] * REGI (04/09/2022 4:12 PM EDT) Antinuclear Ab Test ?Result ? Flag ??Unit ??RefValue Antinuclear Ab, HEp-2 ? <1:80 (Negative) ? <1:80 (Negative) ??Substrate, S ? ADDITIONAL INFORMATION --------- ?Method: Immunofluorescence using HEp-2 cellular substrate. ?Test Performed by: ?[facility] ?[address] [place] [address] ?Hall Manager: Brock Pepe M.D. 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
--- OUTSIDE RECORDS SUMMARY | 2024-06-03 20:22 | XMS_ITS | Encounter Summary ---
Author Organization [facility] Address [facility] [place] [address] Care Team Providers Care Tape Duplicator Name Role Phone Aileen Macias APRN Primary Care Provider [phone] Encounter Details Date Type Department Care Team (Late st Contact Info) Description 03/18/2019 Telephone [place] [phone] Sommer Crews MD [facility] DR [place]STROENTER[place] [address] Social History Tobacco Use Types Packs/Day Years Used Date Smoking Tobacco: Every Day Sex and Gender Information Value Date Recorded Sex Assigned at Not on file Gender Identity Not on file Sexual Orientation Not on file documented as of this encounter Miscellaneous Notes * Telephone Encounter - Sommer Crews - 03/18/2019 6:44 PM EDT Transfer Center Call: I received a call from Dr. Hart at [facility]. Dr. Pérez from hospitalist medicine. Briefly, this is 43 yo man with hx of HCV, IVDU, hx of DRESS who presented to [facility] with fever to 104 and jaundice. Reports recent IVDU. CT A/P showed enlarged GB, periportal edema and dilated intrahepatic ducts. BCx drawn. He was started on cefepime and daptomycin. He has received 3L IVF before he started to make urine. VS: T104 Tachycardic Labs: AST/ALT 4000s Total bili 6 Lactate 2.2 INR pending WBC 12 4% bandemia Creatinine, BUN wnl LFTs were reportedly normal at OSH recently. Based on the information provided to me that has been outlined above, the general recommendations for this type of patient is transfer for further work- up. His imaging will need to be further reviewed as it is unclear from this report if he has imaging consistent with biliary obstruction. Given thedegree of transaminase elevation with ongoing IVDU, concern that this is an infectious process. Recommend dugan-culture. He needs work-up for acute viral hepatitis, as well as CMV and HSV IgG and IgM. We will need to have coags, as well. If elevated, would be concerned for acute liver failure. Also recommend sending tylenol level. If CT was not done without IV contrast, he will need US liver with dopplers to evaluate for acute venous clot. This is not an official consult, as my recommendations are limited by my inability to interview and examine the patient as well as personally review the medical record, imaging, and laboratory findings. Sommer Crews MD Gastroenterology PGY-4 03/18/2019 6:44 PM Pager #[phone] documented in this encounter Plan of Treatment Not on file documented as of this encounter Visit Diagnoses Not on filedocumented in this encounter Care Teams Tape Duplicator Relationship Specialty Start Date End Date Aileen Macias APRN [address] [place] [address] PCP - General Family Medicine 09/04/18 02/10/21 documented as of this encounter
--- OUTSIDE RECORDS SUMMARY | 2024-06-03 20:22 | XMS_ITS | Encounter Summary ---
Author Organization [facility] [place] [address] Care Team Providers Care Die Maintenance Technician Name Role Phone Chon Motta MD Primary Care Provider [phone] Encounter Details Date Type Department Care Team (Late st Contact Info) Description 05/01/2021 Telephone Dermatology at [address] [address] Alana Allen MD [address] [place] [address] [place] [address] Social History Tobacco Use Types Packs/Day Years [...] * Telephone Encounter - Shanta Pavon - 05/01/2021 3:50 PM EDT I contacted patient's today to reschedule 05/06 visit to earlier in the morning. I am hoping he is available for 10am on 05/06. I was not able to speak with anyone when I called but I was able to leave a detailed message and left [phone] for call back today (05/01) and [phone] for Tuesday (05/04) documented in this encounter Plan of Treatment Not on file documented as of this encounter Visit Diagnoses Not on filedocumented in this encounter Care Teams Die Maintenance Technician Relationship Specialty Start Date End Date Chon Motta MD [address] [place] [address] PCP - General Family Medicine 02/11/21 documented as of this encounter
--- OUTSIDE RECORDS SUMMARY | 2024-06-03 20:22 | XMS_ITS | Encounter Summary ---
Author Organization [facility] Address [facility] [place] [address] Care Team Providers Care Soil Technologist Name Role Phone Chon Motta MD Primary Care Provider [phone] Reason for Visit * Reason Comments Skin Lesion * Consultation (Routine) - Closed Specialty Diagnoses / Procedures Referred By Contac t Referred To Contact Dermatology Diagnoses Vitiligo Prurigo nodularis Bullous disorder, unspecified Vitiligo, Prurigo Nodularis, Bullous Disease of Skin; New Patient-Notes Received Procedures Consult Chon Motta MD [facility] [place] [address] Alana Allen MD [address] [place] [id number] Referral ID Status Reason Start Date Expiration Date V isits Requested Visits Authorized [id number] Closed Consult, Test & Treat PCP Updated and/or Approved 01/14/2021 07/17/2021 1 1 Encounter Details Date Type Department Care Team ([facility] st Contact Info) Description 02/11/2021 9:30 AM EDT Office Visit Dermatology at [address] [place] [phone] Alana Allen MD [address] [place] [address] Actinic keratoses; Tinea pedis of both feet Social History Tobacco Use Types Packs/Day Years [...] Sign Reading Time Taken Comments Blood Pressure - - Pulse - - Temperature - - Respiratory Rate - - Oxygen Saturation - - Inhaled Oxygen Concentration - - Weight 70.3 kg (155 lb) 02/11/2021 9:43 AM EDT Height 167.6 cm (5' 6) 02/11/2021 9:43 AM EDT Body Mass Index 25.02 02/11/2021 9:43 AM EDT documented in this encounter Progress Notes * Alana Allen MD - 02/11/2021 9:30 AM EDT Images from the original note were not included. DERMATOLOGY - NEW PATIENT NOTE Date of service: 02/11/2021 Kevin Paulino : 1975, 45 y.o. Chief Complaint: Chief Complaint Patient presents with ??? Skin Lesion HPI: Kevin Paulino is a 45 y.o. male referred by Aileen Macias with the following concerns: Spots on right side of face that he picks at, feels like they are sliver and feels better when theyare picked at. Never treated. Also with rash on left palm and both plantar feet History of Hep C positive. Relevant Skin History: - Skin cancer (including type): none Family History: Melanoma: none Relevant Social History: - n/a Meds: Current Outpatient Medications Medication Sig Dispense Refill ??? ibuprofen (ADVIL;MOTRIN) 400 mg Tablet Take 1 tablet by mouth every 6 hours as needed for Pain.30 tablet 12 ??? varenicline (CHANTIX) 0.5 mg (11)- 1 mg (42) Tablets, Dose Pack Take as directed in the box instructions 53 tablet 0 ??? tenofovir (VIREAD) 300 mg Tablet Take 1 tablet by mouth daily. 30 tablet 3 ??? traZODone (DESYREL) 50 mg Tablet Take [...] distress. - Skin: Skin examination of the face, hands, feet Diagnosis/Skin findings/Assessment/Plan: 1. Actinic Keratosis [Discrete gritty, rough, scaly pink papules located on right eyebrow, nasal tip, left jawline] Reviewed with patient the precancerous nature of these lesions and the possibility for progression to SCC-type skin cancers if left untreated or recurrent after treatment - given the association with chronic sun exposure and solar damage, advised the patient on increased vigilance with sun protection Procedure Note Cryotherapy Total number of treated lesions: 3 Location: right eyebrow, nasal tip, left jawline A diagnosis of actinic keratosis [...] if new lesions arise. Today is treatment #1, do not pick at lesions 2. Tinea Pedis/Tinea manum - Scaly hyperkeratotic plaques on left palm and both plantar feet -background of yellow waxy hyperkeratosis on both palms - Discussed etiology -Ketoconzole cream BID for 4 weeks massage into affected area -Possible PPK associated RTC: One month for follow up Note initiated by Alana Allen MD. Reviewed and signed by Alana Allen MD Department of Dermatology [facility] documented in this encounter Plan of Treatment Not on file documented as of this encounter Visit Diagnoses Diagnosis Actinic keratoses Actinic keratosis Tinea pedis of both feet documented in this encounter Care Teams Soil Technologist Relationship Specialty Start Date End Date Chon Motta MD [address] [place] [address] PCP - General Family Medicine 02/11/21 documented as of this encounter
--- OUTSIDE RECORDS SUMMARY | 2024-06-03 20:22 | XMS_ITS | Encounter Summary ---
Author Organization [facility] [place] [address] Care Team Providers Care Paper Roll Machine Operator Name Role Phone Aileen Macias APRN Primary Care Provider [phone] Encounter Details Date Type Department Care Team (Late st Contact Info) Description 03/18/2019 11:15 PM EDT Ancillary [place] [phone] Social History Tobacco Use Types Packs/Day Years Used Date Smoking Tobacco: Every Day Sex and Gender Information Value Date Recorded Sex Assigned at Not on file Gender Identity Not on file Sexual Orientation Not on file documented as of this encounter Plan of Treatment Not on file documented as of this encounter Procedures Procedure Name Priority Date/Time Associated Diagnosis Comments FILM LIBRARY STORAGE ONLY CT ABDOMEN AND PELVIS Routine 03/18/2019 11:11 PM EDT documented in this encounter Results * Film Library- Storage Only CT Abdomen & Pelvis (03/18/2019 11:11 PM EDT) Narrative [facility] - 03/18/2019 11:11 PM EDT This exam is auto-finalizing. It's purpose is for storage only. Ky Osman MD IMG FILM LIBRARY ORD ERABLES [place], [place] documented in this encounter Visit Diagnoses Not on filedocumented in this encounter Care Teams Paper Roll Machine Operator Relationship Specialty Start Date End Date Aileen Macias APRN [address] [place] [address] PCP - General Family Medicine 09/04/18 02/10/21 documented as of this encounter
--- OUTSIDE RECORDS SUMMARY | 2024-06-03 20:22 | XMS_ITS | Encounter Summary ---
Author Organization [facility] [place] [address] Care Team Providers Care Supply Chain Director Name Role Phone Chon Motta MD Primary Care Provider [phone] Reason for Visit * Reason Comments Actinic Keratosis Epidermal Cyst left jaw line Encounter Details Date Type Department Care Team ([facility] st Contact Info) Description 04/08/2021 10:00 AM EDT Office Visit Dermatology at [address] [place] [phone] Alana Allen MD [address] [place] [id number] Other eczema; Actinic keratoses Social History Tobacco Use Types Packs/Day Years [...] Progress Notes * Alana Allen MD - 04/08/2021 10:00 AM EDT Images from the original note were not included. DEPARTMENT OF DERMATOLOGY [facility] Provider: Alana Allen MD Patient's preferred name Kevin Patient's preferred pronouns He/His/Him Preferred contact method for results [] myDH [] Letter [x] Phone: Detailed phone message OK? Are there any other people with whom we may discuss your care? PAST MEDICAL HISTORY Y/N Date, location, treatment Melanoma n Dysplastic nevi n SCC n BCC n AKs yes Blistering sunburns or tanning bed use n Other relevant past medical history (i.e. 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 History of Present Illness: Kevin Paulino is a 45 y.o., established patient, last seen on 03/11/2021. Here today for a follow up with the following concerns: AK follow up. Hand warts/dermatitis follow up. Not any improved after TAC treatment. Thins it may actually be worse. Picking spots on his face, they are not healed but improved. Medications: Reviewed in eD-H Allergies: Reviewed in eD-H Skin Examination: Waist-up skin examination: Patient was asked to disrobe to the level of their comfort. Patient elected to remain clothed below the waist. Examination of the scalp, hair, face, ears, neck, back, chest, abdomen, and upper extremities was normal with the exception of the findings listed below. Assessment/Plan 1. 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 Excoriations on face -start mupirocin ointment BID to affected area for 2 weeks or until healed -do not pick lesions Photo was taken and charted with patient's verbal consent. Upper body Other items to document in the assessment/plan if relevant ??? Sun protection/OTC skin products discussed RTC: No follow-ups on file. Reviewed and signed by: Alana Allen MD Dermatology [facility] documented in this encounter Plan of Treatment Not on file documented as of this encounter Visit Diagnoses Diagnosis Other eczema Actinic keratoses Actinic keratosis documented in this encounter Care Teams Supply Chain Director Relationship Specialty Start Date End Date Chon Motta MD [address] [place] [address] PCP - General Family Medicine 02/11/21 documented as of this encounter
--- OUTSIDE RECORDS SUMMARY | 2024-06-03 20:22 | XMS_ITS | Encounter Summary ---
[facility] [place] [address] Care Team Providers Care Recreation Program Coordinator Name Role Phone Chon Motta MD Primary Care Provider [phone] Encounter Details Date Type Department Care Team (Late st Contact Info) Description 04/09/2022 4:05 PM EDT Laboratory Appointment Lab [address] [place] [address] Arthritis Social History Tobacco Use Types Packs/Day [...] Notes * Natan Gomez MD - 04/09/2022 4:05 PM EDT Called patient and reviewed laboratory workup. Discussed elevated ESR/CRP but negative REGI/RF. Planto continue with referral to rheumatology as previously discussed. documented in this encounter Plan of Treatment Not on file documented as of this encounter Procedures Procedure Name Priority Date/Time Associated Diagnosis Comments HC C-REACTIVE PROTEIN Routine 04/09/2022 4:12 PM EDT Arthritis HC HLA-B27 Routine 04/09/2022 4:12 PM EDT Arthritis HC VENIPUNCTURE Routine 04/09/2022 4:12 PM EDT Arthritis WBC Routine 04/09/2022 4:12 PM EDT HC RHEUMATOID FACTOR Routine 04/09/2022 4:12 PM EDT Arthritis HC PCH ANATITRE (ANDPATTERN) Routine 04/09/2022 4:12 PM EDT Arthritis documented in this encounter Results * WBC (04/09/2022 4:12 PM EDT) WBC 7.0 4.0 - 9.5 x10(3)/mcL [facility] Blood 04/09/2022 4:12 PM EDT 04/09/2022 4:16 PM EDT Narrative Resulting Agency Comment Spec In Lab Natan Gomez MD HEMATOLOGY ORDERABLE S [facility] [place] [address] * REGI (04/09/2022 4:12 PM EDT) Antinuclear Ab Test ?Result ? Flag ??Unit ??RefValue Antinuclear Ab, HEp-2 ? <1:80 (Negative) ? <1:80 (Negative) ??Substrate, S ? ADDITIONAL INFORMATION --------- ?Method: Immunofluorescence using HEp-2 cellular substrate. ?Test Performed by: ?[facility] ?[address] [place] [address] ?Candles Pourer: Brock Pepe M.D. Ph.D.; CLIA# [id number] [facility] Blood 04/09/2022 4:12 PM EDT 04/12/2022 9:31 AM EDT Narrative Resulting Agency Comment Spec In Lab Franklin Mishra MD IMMUNOLOGY ORDERABLE S Performing Organization Address [facility] Co de Phone Number [facility] [place] [address] * HLA-B27 (04/09/2022 4:12 PM EDT) Pathologist [facility] HLA-B27 Negative [facility] HLA-B27 Interp HLA B27 antigen was not detected. Method: Flow Cytometry Reference: 1.Jolynn DA, Rivero FD, Porsha A, et al: Ankylosing spondylitis and HLA-27. Lancet 1973;1:904-907 2.Loki J, Kalie CAZARES: HLA-B27 typing by use of flow cytofluorometry . Clin Chem 1987;33:1619-16 23 [facility] WBC 7.0 4.0 - 9.5 x10(3)/mc L [facility] Blood 04/09/2022 4:12 PM EDT 04/09/2022 4:16 PM EDT Narrative Resulting Agency Comment Spec In Lab Franklin Mishra MD HEMATOLOGY ORDERABLE S Performing Organization Address [facility] Co de Phone Number [facility] [place] [address] * (ABNORMAL) CRP, acute inflammation (04/09/2022 4:12 PM EDT) [facility] CRP 7.4(H) <=4.9 mg/L [facility] Blood 04/09/2022 4:12 PM EDT 04/09/2022 4:16 PM EDT Narrative Resulting Agency Comment Spec In Lab Franklin Mishra MD CHEMISTRY ORDERABLES Performing Organization Address [facility] Co de Phone Number [facility] [place] [address] * Rheumatoid factor, quant (04/09/2022 4:12 PM EDT) RF <10 <=14 IU/mL [facility] Blood 04/09/2022 4:12 PM EDT 04/09/2022 4:16 PM EDT Narrative Resulting Agency Comment Spec In Lab Franklin Mishra MD IMMUNOLOGY ORDERABLE S Performing Organization Address [facility] Co de Phone Number [facility] [place] [address] * (ABNORMAL) Sedimentation rate (04/09/2022 4:12 PM EDT) Sed Rate 42(H) 2 - 28 mm/hr [facility] Comment: Effective October 17, 2019 new capillary photometric technology has resulted in a change in reference ranges. It is recommended that each ESR result be reviewed with its own age appropriate reference range. Blood 04/09/2022 4:12 PM EDT 04/09/2022 4:16 PM EDT Narrative Resulting Agency Comment Spec In Lab Franklin Mishra MD HEMATOLOGY ORDERABLE S Performing Organization Address [facility] Co de Phone Number [facility] [place] [address] documented in this encounter Visit Diagnoses Diagnosis Arthritis Arthropathy, unspecified, site unspecified documented in this encounter Care Teams Recreation Program Coordinator Relationship Specialty Start Date End Date Chon Motta MD [facility] [place] [phone] PCP - General Family Medicine 02/11/21 documented as of this encounter
--- OUTSIDE RECORDS SUMMARY | 2024-06-03 20:22 | XMS_ITS | Encounter Summary ---
Author Organization [facility] Address [facility] [place] [address] Care Team Providers Care Bus Assistant Name Role Phone VickiAileen lane PRAVEEN Primary Care Provider [phone] Reason for Referral * Consultation (Routine) - Closed Specialty Diagnoses / Procedures Referred By Contac t Referred To Contact Dermatology Diagnoses Acute hepatitis B Vitiligo Chronic hepatitis C without hepatic coma Heron Grayson PA [address] [place] [address] [facility] Dermatology [address] [place] [address] Referral ID Status Reason Start Date Expiration Date V isits Requested Visits Authorized [id number] Closed Consult, Test & Treat 04/10/2019 04/09/2020 1 1 Encounter Details Date Type Department Care Team (Late st Contact Info) Description 04/10/2019 2:00 PM EDT Office [place] [address] Heron Grayson PA [address] [place] [address] Acute hepatitis B (Primary Dx); Chronic hepatitis C without hepatic coma; Vitiligo; Crack cocaine use Social History Tobacco Use Types Packs/Day Years [...] Sign Reading Time Taken Comments Blood Pressure 126/70 04/10/2019 2:16 PM EDT Pulse 73 04/10/2019 2:16 PM EDT Temperature 36.8 ??C (98.2 ??F) 04/10/2019 2:16 PM ED T Respiratory Rate - - Oxygen Saturation 100% 04/10/2019 2:16 PM EDT Inhaled Oxygen Concentration - - Weight 63.1 kg (139 lb 3.2 oz) 04/10/2019 2:16 P M EDT Height 165.1 cm (5' 5) 04/10/2019 2:16 PM EDT Body Mass Index 23.16 04/10/2019 2:16 PM EDT documented in this encounter Progress Notes * Heron Grayson PA - 04/10/2019 2:00 PM EDT HEPATOLOGY NEW PATIENT CONSULTATION Patient: Kevin Paulino Sex: male Date of : 1975 NATIONAL INVESTIGATIVE PRODUCER: Heron Grayson PA-C PCP: Aileen Macias APRN Requesting Provider: No ref. provider found 04/10/19 REASON FOR CONSULTATION: Acute hepatitis B infection in setting of chronic hepatitis C PROBLEM LIST Patient Active Problem List Diagnosis Code ??? Chronic hepatitis C without hepatic coma B18.2 ??? DRESS syndrome L27.0, D72.1, T50.905A ??? History of intravenous drug abuse Z87.898 ??? Vitiligo L80 ??? Acute hepatitis B B16.9 ??? History of alcohol abuse Z87.898 ??? History of bacteremia Z87.898 ??? Crack cocaine use F14.90 HISTORY OF PRESENT ILLNESS Kevin Paulino is a 43 y.o. male referred to hepatology clinic after recent hospital admission foracute liver failure secondary to acute hepatitis B infection/reactivation in the midst of being treated for chronic hepatitis C. Mr. Paulino states that he started to feel more feverish with chills, sweats, and dizziness and brought himself to his local hospital on 03/18/19 at [facility]. He was then found to have severe hepatitis and transferred to [facility]. He states that he was about 6 weeks into treatment for chronic hepatitis C infection with glecaprevir (300 mg)/pibrentasvir (120 mg) (Mavyret) at the time, which was being prescribed by Dr. Motta out of [facility]. He had only met with Dr. Motta for one consultation visit prior to starting treatment. He states that there was a slew of bloodwork that was done prior to treatment, and from what he recalls he was negative for hepatitis B. He also states that he had labs about 3 weeks into treatment, and the HCV viral load was negative, though he cannot remember if LFTs were elevated, or if HBsAg was checked. He has had no labs since discharge from the hospital on 03/22/19. He did complete his 8-week course of the Mavyret some time last week. He feels a little better now, maybe still some cold chills. He denies any fogginess or confusion but maybe still a bit dizzy. His urine was previously quite dark, now this is intermittently dark. Stools are normal caliber, not light/abhijeet-colored, though he does admit some bright red blood that hethinks is related to hemorrhoids. 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 He has had diffuse vitiligo since he was a , though has never been seen by a production zone leader. He admits that he was smoking crack cocaine intermittently throughout treatment, though adamantly denies any intravenous drug use. He has been clean from using needles for several months, around the New Year. He admits to one encounter of unprotected sex with a new female partner a couple weeks prior to his hospitalization, stating he is unaware of her STI status. He is still with this girlfriend. He states that he did take a couple doses of Tylenol prior to presenting to the hospital for fevers, though nothing more than this. He usually only takes ibuprofen for pain if needed. He just started taking a men's multivitamin. He otherwise denies any other OTC medication, dietary or herbal supplements, or other drugs. In regard to alcohol, he had maybe a beer or two during treatment. He had greatly reduced his alcohol consumption following a prior hospitalization last summer for [facility]acteremiaat [facility]. He is now seeing a drug and alcohol counselor and doing well with this. 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 REVIEW OF SYSTEMS General: Admits fatigue, chills, denies weight loss, poor sleep, fever, night sweats Skin: Admits skin irritation/redness, left palm dryness, denies easy bruising, jaundice EENT: Denies blurred vision or change in vision, hearing loss, sinus problems, dry eyes or mouth Endocrine: Denies change in tolerance to heat or cold, excessive thirst Cardiovascular: Denies chest pain, palpitations or irregular heart beat, pain in legs with walking,swelling in feet Pulmonary: Denies SOB, persistent cough, coughing up blood, asthma or wheezing Gastrointestinal: Admits intermittent bright red blood in stools, denies poor appetite, abdominal pain, indigestion, trouble swallowing, diarrhea, constipation, nausea/vomitting Musculoskeletal: Admits joint pains, denies back pain, neck or shoulder pain, muscle cramping, movement of legs at night. Neurologic: Admits dizziness, headaches, denies blackouts or loss of consciousness, weakness or numbness in legs or arms, tremor, worsening memory and concentration Genitourinary: Admits intermittent dark urine, denies frequent urination, blood in urine Psychiatric: Denies changes in mood or behavior, anxiety MEDICATIONS Current Outpatient Medications Medication Sig Dispense Refill ??? ibuprofen (ADVIL;MOTRIN) 400 mg Tablet Take 1 tablet by mouth every 6 hours as needed for Pain.30 tablet 12 ??? varenicline (CHANTIX) 0.5 mg (11)- 1 mg (42) Tablets, Dose Pack Take as directed in the box instructions 53 tablet 0 ??? traZODone (DESYREL) 50 mg Tablet Take 50 mg by mouth nightly. ??? tenofovir (VIREAD) 300 mg Tablet Take 1 tablet by mouth daily. 30 tablet 3 No current facility-administered medications for this visit. ALLERGIES Allergies Allergen Reactions ??? Vancomycin DRESS syndrome in 2018 ??? Gabapentin Itchiness reported, unknown if anaphylaxis SOCIAL HISTORY Occupation: [employer] Marital status: Single, in new monogamous relationship with female partner Smoking: Currently 1 cigarette or cigar daily, on Chantix, was 1 ppd prior to hospitalization Alcohol: Rarely, previously was quite heavy Other drug: Marijuana daily, mostly helps with pain and anxiety FAMILY HISTORY Negative except as noted below Medical problem Family member Medical Problem Family member Medical Problem Family member Alcohol drug Problem Kidney disease Mental illness Anemia or Blood Disease Liver disease Depression Diabetes Mother? Liver cancer Seizure Father with MS High blood pressure Stroke Lung disease Heart disease Clotting problems Colon Cancer High cholesterol Immune disorders Other Cancer Granmother skin CA PHYSICAL EXAM Vitals: 04/10/19 1416 BP: 126/70 Pulse: 73 Temp: 36.8 ??C (98.2 ??F) SpO2: 100% Weight: 63.1 kg (139 lb 3.2 oz) Height: 165.1 cm (5' 5) Body mass index is 23.16 kg/m??. Constitutional: Well appearing, appropriate, no acute distress Skin: Diffuse vitiligo of both extremities, neck, chest, and torso; severe dryness/cracking of leftpalm and fingers; ~1 cm anterior chest nodule with scar formation, no cyanosis, no palmar erythema,no jaundice, no spider angiomata Head: Normocephalic, PERRLA, sclerae anicteric, oropharynx within normal, tongue piercing CVS: RRR, normal S1/S2, no murmurs, rubs, or gallops, equal pulses in bilateral upper and lower extremities Lungs: Clear to auscultation bilaterally, no wheezes, rales, or rhonci Abdomen: Nontender, nondistended, no hepatosplenomegaly, no masses, no fluid wave, no umbilical hernia, no caput medussae, positive bowel sounds Neurologic: Alert and oriented x 3, no asterixis or tremor Extremities: No edema, no clubbing, no muscle wasting, no joint swelling RESULTS Recent Results (from the past 24 hour(s)) Prothrombin Time Result Value Ref Range PT 11.0 9.4 - 12.5 sec INR 1.0 Comprehensive metabolic panel (non-fasting) Result Value Ref Range Glucose Lvl 85 65 - 199 mg/dL BUN 8 (L) 10 - 20 mg/dL Creatinine 0.84 0.80 - 1.50 mg/dL Sodium 139 135 - 145 mmol/L Potassium 3.6 3.5 - 5.0 mmol/L Chloride 100 98 - 107 mmol/L CO2 26 22 - 31 mmol/L Anion Gap 13 5 - 15 mmol/L Calcium 9.8 8.5 - 10.5 mg/dL Total Protein 7.8 6.1 - 8.0 gm/dL Albumin 4.3 3.2 - 5.2 gm/dL AST 739 (H) 0 - 39 unit/L ALT 1,382 (H) 0 - 55 unit/L Alk Phos 256 (H) 40 - 120 unit/L Total Bilirubin 1.2 0.2 - 1.3 mg/dL eGFR 109 >=60 mL/min/1.73 m?? eGFR 126 >=60 mL/min/1.73 m?? Hemogram Result Value Ref Range WBC 6.4 4.0 - 9.5 x10(3)/mcL RBC 4.24 (L) 4.58 - 5.54 x10(6)/mcL Hemoglobin 12.8 (L) 13.7 - 16.5 gm/dL Hematocrit 37.9 (L) 40.5 - 48.5 % MCV 89.4 82.9 - 93.1 fL MCH 30.2 27.5 - 32.1 pg MCHC 33.8 32.0 - 35.7 gm/dL Platelets 308 145 - 357 x10(3)/mcL RDWSD 52.0 (H) 36.0 - 45.0 fL RDWCV 15.8 (H) 11.4 - 13.8 % MPV 9.8 7.6 - 12.9 fL nRBC % Auto 0.0 % nRBC Abs Auto 0.000 0.000 - 0.000 x10(3)/mcL Differential, Automated Result Value Ref Range Neutrophils % 60.5 % Neutr Abs (ANC) 3.85 1.70 - 6.10 x10(3)/mcL Lymphocytes % 27.8 % Lymphocytes Abs 1.8 0.9 - 3.2 x10(3)/mcL Monocytes % 7.9 % Monocyte Abs 0.5 0.3 - 0.9 x10(3)/mcL Eosinophils % 2.7 % Eosinophils Abs 0.2 0.0 - 0.4 x10(3)/mcL Basophils % 0.8 % Basophils Abs 0.0 0.0 - 0.1 x10(3)/mcL Immature Gran % 0.30 % Andreina Gran Abs 0.02 0.00 - 0.04 x10(3)/mcL Hepatitis A Antibody, Total Result Value Ref Range Hepatitis A Ab Positive (A) Negative Prior Labs (at discharge 03/22/19): Lab Results Component Value Date NA 138 03/22/2019 K 3.7 03/22/2019 CL 104 03/22/2019 CO2 24 03/22/2019 BUN 7 (L) 03/22/2019 CREATININE 0.70 (L) 03/22/2019 GLUCFASTING 122 (H) 03/22/2019 CALCIUM 8.2 (L) 03/22/2019 ESTGFR 117 03/22/2019 Lab Results Component Value Date ALT 2,122 (H) 03/22/2019 AST 808 (H) 03/22/2019 ALKPHOS 301 (H) 03/22/2019 BILITOT 6.2 (H) 03/22/2019 ALBUMIN 2.9 (L) 03/22/2019 PROT 5.6 (L) 03/22/2019 Lab Results Component Value Date INR 1.0 03/22/2019 Lab Results Component Value Date WBC 5.0 03/22/2019 HGB 13.1 (L) 03/22/2019 HCT 39.0 (L) 03/22/2019 MCV 87.1 03/22/2019 PLATELET 176 03/22/2019 Ref. Range 03/18/2019 23:00 REGI Latest Ref Range: Neg Neg CRP Latest Ref Range: <=4.9 mg/L 64.7 (H) Sm Muscle Ab Latest Ref Range: Negative Negative Ceruloplasmin Latest Ref Range: 15.0 - 30.0 mg/dL 30.0 BLOOD CULTURE Unknown Rpt HIV-1/2 Ab and Ag Latest Ref Range: Negative Negative CMV DNA PCR Quant Latest Units: IU/mL <50 EBV DNA BY PCR Latest Ref Range: Undetected IU/mL Undetected HCV Viral Load Latest Units: IU/mL <12 Hepatitis A Ab Latest Ref Range: Negative Indeterminate (A) HepB Surface Ab Quant Latest Units: IU/L <3.5 HepB Surface Ab Unknown Negative HepB Surface Ag Latest Ref Range: Negative Positive (A) Hep B Core Ab Latest Ref Range: Negative Positive (A) Hepatitis B DNA, quantitative, PCR Unknown Result: [id number]... HSV Type 1 Antibody, IgG Latest Ref Range: Neg Pos (A) HSV Type 2 Antibody, IgG Latest Ref Range: Neg Pos (A) Imaging: CT abd/pelvis 03/18/19 (second read from [facility] study): FINDINGS: ?? Lower chest: 5 mm peripheral lingular [...] for occult acuity, HIDA scan is suggested. ASSESSMENT/PLAN Kevin Paulino is a 43 y.o. male with prior history of DRESS syndrome related to vancomycin, history of intravenous and intranasal drug abuse and alcohol abuse, vitiligo, and chronic hepatitis C infection now status post treatment with Mavyret who presented to [facility] on 03/18 with acute hepatitis/liver failure after presenting to his local hospital with symptoms of fevers, chills, fatigue, and dizziness. He was also noted to be jaundice though this is resolved. He had significant hyperbilirubinemia, hypoalbuminemia, and severely elevated LFTs. INR was also elevated up to 1.6 on admission thoughrapidly improved to 1.0 on discharge. He was found to have active hepatitis B infection with positive hep B surface antigen and core antibody (total, not differentiated with IgM) and a very high viral load of over 368 million IU/mL. Of note, hepatitis B surface antibody was negative, hepatitis a total antibody was indeterminant, HCV viral load was undetected, and he did not have active CMV, EBV, or HIV, and blood cultures were negative after 5 days. 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 Autoantibodies for autoimmune hepatitis were negative and a ceruloplasmin was within normal limits ruling out Hank disease. Today, he is now much improved physically though still has some intermittent chills and dizziness. I do not note any jaundice or other signs of hepatic compromise on exam. Bilirubin has now normalized and albumin is normal with INR of 1.0 today, indicating complete revival of synthetic function. Transaminases are still significantly elevated however though are improved. This may take a while for transaminases to return to baseline, or they may remain mildly elevated if the HBV infection persists. It is much too early to tell at this point if this infection will resolve, and not worth repeating viral load or surface antigen/antibody testing. We should however check hepatitis B e antigen and antibody now, and may be helpful to check hepatitis B core antibody IgM. Unfortunately, I have no prior records from [place] care [place] with the treatment of his hep C infection, no primary care records as well. I would be most interested to see if a total hep B core antibody was checked prior to starting Mavyret. There is a very rare warning when starting patients on direct acting antiviral therapy who have isolated positive total hep B core antibody test that there may be a risk of reactivationof dormant hepatitis B. However, given the fact that he had a fairly recent unprotected sexual encounter a few weeks prior to presentation also raises suspicion for new acute infection. Regardless, this should be managed as acute hepatitis B infection and he was appropriately started on tenofovir for this. I am rechecking another hep C viral load test now that he has completed his 8- week course of the Mavyret. If this is again undetected then it will be need to be checked at 3 and 6 months posttreatment in order to confirm sustained virologic response. I did repeat a hepatitis A antibody total which is now positive, changed from indeterminate previously. This means that he should be considered immune to hepatitis A. I also have no estimation of liver fibrosis, and he was not fasting for a Fibroscan, though this would likely be inaccurate in the setting of acute hepatitis. At some point in the future we should obtain a FibroScan for fibrosis estimation, though I doubt he has advanced fibrosis. Plan: -Continue tenofovir 300 mg daily. -Await results of HCV RNA, HBeAg, HBeAb, and HBcAb IgM -Recheck labs in 2 weeks: CBC, CMP, INR. If these continue to improve, we will then move to monthlylabs. He can have these done at [facility]. -We should recheck HBV DNA and other serologies in approximately 3 months. -Obtain records from PCP and Dr. Chon Motta's office. The patient and I agreed that we will take over his care in regard to HCV follow-up. 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 See photographs in scanned documents. -Remain well-hydrated throughout the day. Okay to continue work as tolerated. -For the time being, avoid acetaminophen and use ibuprofen sparingly. -This case of acute HBV needs to be reported to the [facility] of [place]. We will send paperwork. -Follow-up in hepatology clinic in 1 month. 75 of this 80 minute visit was in [id number] discussion regarding disease, prognosis and treatment. Heron Grayson PA-C Section of Gastroenterology [place] [address] Copy: Aileen Macias, PRAVEEN No ref. provider found documented in this encounter Plan of Treatment Scheduled Referrals Name Type Priority Associated Diagnoses Order Schedule Referral to Dermatology Outpatient Referral Routine Acute hepatitis B Vitiligo Chronic hepatitis C without hepatic coma Ordered: 04/10/2019 documented as of this encounter Procedures Procedure Name Priority Date/Time Associated Diagnosis Comments HEMOGRAM STAT 04/10/2019 2:57 PM EDT Acute hepatitis B DIFFERENTIAL, AUTOMATED STAT 04/10/2019 2:57 PM EDT Acute hepatitis B HEPATITIS BE ANTIGEN AND ANTIBODY Routine 04/10/2019 2:57 PM EDT Acute hepatitis B HEPATITIS A ANTIBODY, TOTAL Routine 04/10/2019 2:57 PM EDT HEPATITIS B CORE ANTIBODY, TOTAL Routine 04/10/2019 2:57 PM EDT HEPATITIS C RNA, QUANTITATIVE, PCR Routine 04/10/2019 2:57 PM EDT Acute hepatitis B PROTHROMBIN TIME STAT 04/10/2019 2:57 PM EDT Acute hepatitis B CBC (WITH DIFF) STAT 04/10/2019 2:57 PM EDT Acute hepatitis B COMPREHENSIVE METABOLIC PANEL (NON-FASTING) STAT 04/10/2019 2:57 PM EDT Acute hepatitis B documented in this encounter Results * (ABNORMAL) Hepatitis B Core Antibody, Total (04/10/2019 2:57 PM EDT) Pathologist [facility] Hep B Core Ab Positive(A ) Negative [facility] Blood specimen (specimen) Venous Draw / Unknown 04/10/2019 2:57 PM EDT 04/10/2019 5:15 PM EDT Narrative Resulting Agency Comment Spec In Lab Heron ARMSTRONG CHEMISTRY ORDERABLES [facility] [place] [address] * (ABNORMAL) Hepatitis A Antibody, Total (04/10/2019 2:57 PM EDT) Pathologist [facility] Hepatitis A Ab Total Positive(A ) Negative [facility] Blood specimen (specimen) Venous Draw / Unknown 04/10/2019 2:57 PM EDT 04/10/2019 5:15 PM EDT Narrative Resulting Agency Comment Spec In Lab Heron ARMSTRONG IMMUNOLOGY ORDERABLE S [facility] [place] [address] * Differential, Automated (04/10/2019 2:57 PM EDT) Pathologist [facility] Neutrophils % 60.5 % [facility] Neutr Abs (ANC) 3.85 1.70 - 6.10 x10(3)/mcL [facility] Lymphocytes % 27.8 % [facility] Lymphocytes Abs 1.8 0.9 - 3.2 x10(3)/[facility] Monocytes % 7.9 % [facility] Monocyte Abs 0.5 0.3 - 0.9 x10(3)/[facility] Eosinophils % 2.7 % [facility] Eosinophils Abs 0.2 0.0 - 0.4 x10(3)/[facility] Basophils % 0.8 % [facility] Basophils Abs 0.0 0.0 - 0.1 x10(3)/[facility] Immature Gran % 0.30 % [facility] Comment: Immature granulocytes(IG's)percentage and absolute count will include metamyelocytes, myelocytes, and promyelocytes. Blood smears from CBCs yielding IG's will be scanned manually for concordance. If this scan disagrees with the automated IG or if promyelocytes are noted, a manual differential will be performed. Andreina Gran Abs 0.02 0.00 - 0.04 x10(3)/[facility] Blood specimen (specimen) 04/10/2019 2:57 PM EDT 04/10/2019 3:10 PM EDT Narrative Resulting Agency Comment Spec In Lab Heron ARMSTRONG HEMATOLOGY ORDERABLE S [facility] [place] [address] * (ABNORMAL) Hemogram (04/10/2019 2:57 PM EDT) WBC 6.4 4.0 - 9.5 x10(3)/[facility] RBC 4.24(L) 4.58 - 5.54 x10(6)/[facility] Hemoglobin 12.8(L) 13.7 - 16.5 gm/dL [facility] Hematocrit 37.9(L) 40.5 - 48.5 % [facility] MCV 89.4 82.9 - 93.1 fL [facility] MCH 30.2 27.5 - 32.1 pg [facility] MCHC 33.8 32.0 - 35.7 gm/dL [facility] Platelets 308 145 - 357 x10(3)/[facility] RDWSD 52.0(H) 36.0 - 45.0 [facility] RDWCV 15.8(H) 11.4 - 13.8 % [facility] MPV 9.8 7.6 - 12.9 [facility] nRBC % Auto 0.0 % [facility] nRBC Abs Auto 0.000 0.000 - 0.000 x10(3)/[facility] Blood specimen (specimen) 04/10/2019 2:57 PM EDT 04/10/2019 3:10 PM EDT Narrative Resulting Agency Comment Spec In Lab Heron ARMSTRONG HEMATOLOGY ORDERABLE S [facility] [place] [address] * Hepatitis C RNA, quantitative, PCR (04/10/2019 2:57 PM EDT) HCV Viral Load <12 IU/mL [facility] HCV Viral Load Result: <12 IU/mL(Target Not Detected) Indication for Study: Hepatitis C Infection Analysis: The [employer]en RealTime HCV assay is an in vitro reverse mental retardation nurse polymerase chain reaction (RT-PCR)for the quantitation of hepatitis C viral (HCV) RNA in human serum or plasma (EDTA) from HCV-infected individuals. Sample: plasma (0.7 mL minimum volume) Method: Gu[employer] RealTime HCV Assay Linear Range: 12 IU/mL - 100,000,000IU/mL Note: The Gu[employer]en RealTime HCV Assay has been approved by the U.S. Food and Drug Administration. [facility] Comment: [VERIFIED DATE]04.17.19 Verified By:Kimberley Montes De Oca (Electronic Signature) Blood specimen (specimen) 04/10/2019 2:57 PM EDT 04/16/2019 2:54 PM EDT Narrative Resulting Agency Comment Spec In Lab Yoly Oviedo MD IMMUNOLOGY ORDERABLE S [facility] [place] [address] * (ABNORMAL) Hepatitis BE Antigen and Antibody (04/10/2019 2:57 PM EDT) Pathologist [facility] Hep B E Ag Negative Negative [facility] Comment: Test Performed by: [facility] - [address] [address] Hep B E Ab Positive(A) Negative [facility] Comment: Test Performed by: [facility] - [address] [address] Blood specimen (specimen) 04/10/2019 2:57 PM EDT 04/11/2019 8:02 AM EDT Narrative Resulting Agency Comment Spec In Lab Yoly Oviedo MD IMMUNOLOGY ORDERABLE S Performing Organization Address [facility] Co de Phone Number [facility] [place] [address] * Prothrombin Time (04/10/2019 2:57 PM EDT) Pathologist [facility] PT 11.0 9.4 - 12.5 sec [facility] INR 1.0 [facility] Comment: An INR <2.0 indicates adequate [...] depending on clinical circumstances. Blood specimen (specimen) 04/10/2019 2:57 PM EDT 04/10/2019 3:10 PM EDT Narrative Resulting Agency Comment Spec In Lab Yoly Oviedo MD HEMATOLOGY ORDERABLE S [facility] [place] [address] * (ABNORMAL) Comprehensive metabolic panel (non-fasting) (04/10/2019 2:57 PM EDT) Glucose Lvl 85 65 - 199 mg/dL [facility] Comment:Diabetes: >=200 mg/d L plus symptoms BUN 8(L) 10 - 20 mg/dL [facility] Creatinine 0.84 0.80 - 1.50 mg/dL [facility] Sodium 139 135 - 145 mmol/L [facility] Potassium 3.6 3.5 - 5.0 mmol/L [facility] Comment: Please note: ??Patients with WBC >100,000 may have falsely elevated Potassium levels. ??For accurate Potassium quantification in these patients send serum separator tube (gold top) for subsequent determinations. ??Contact the Clinical Chemistry Laboratory if there are any questions. Chloride 100 98 - 107 mmol/L [facility] CO2 26 22 - 31 mmol/L [facility] Anion Gap 13 5 - 15 mmol/L [facility] Calcium 9.8 8.5 - 10.5 mg/dL [facility] Total Protein 7.8 6.1 - 8.0 gm/dL [facility] Albumin 4.3 3.2 - 5.2 gm/dL [facility] AST 739(H) 0 - 39 unit/L [facility] ALT 1,382(H) 0 - 55 unit/L [facility] Alk Phos 256(H) 40 - 120 unit/L [facility] Total Bilirubin 1.2 0.2 - 1.3 mg/dL [facility] Estimated GFR 109 >=60 mL/min/1. 73 m?? [facility] Comment: The eGFR was calculated using the CKD-EPI equation. As with all creatinine based estimates of kidney function, eGFR values calculated with the CKD-EPI equation are not accurate in patients with acute kidney failure, extremes of body mass or the acutely ill. http://[email or web address] eGFR 126 >=60 mL/min/1. 73 m?? [facility] Comment: The eGFR was calculated using the CKD-EPI equation. As with all creatinine based estimates of kidney function, eGFR values calculated with the CKD-EPI equation are not accurate in patients with acute kidney failure, extremes of body mass or the acutely ill. http://[employer]/DHnkf Blood specimen (specimen) 04/10/2019 2:57 PM EDT 04/10/2019 3:10 PM EDT Narrative Resulting Agency Comment Spec In Lab Yoly Oviedo MD CHEMISTRY ORDERABLES [facility] [place] [id number] documented in this encounter Visit Diagnoses Diagnosis Acute hepatitis B- Primary Viral hepatitis B without mention of hepatic coma, acute or unspecified, without mention of hepatitis delta Chronic hepatitis C without hepatic coma Vitiligo Crack cocaine use Cocaine abuse, unspecified documented in this encounter Care Teams Bus Assistant Relationship Specialty Start Date End Date Aileen Macias, [address] [place] [address] PCP - General Family Medicine 09/04/18 02/10/21 documented as of this encounter
--- OUTSIDE RECORDS SUMMARY | 2024-06-03 20:22 | XMS_ITS | Encounter Summary ---
[facility] [place] [address] Care Team Providers Care Tile Layer Drainage Name Role Phone FaithaníbalAileen mei [employer] Primary Care Provider [phone] Reason for Visit * Auth/Cert Specialty Diagnoses / Procedures Referred By Yogi t Referred To Contact Diagnoses Sepsis FEVER, JAUNDICE, POSSIBLE CHOANGITIS Procedures EMERGENCY IPI Referral ID Status Reason Start Date Expiration Date Visits Re quested Visits Authorized [id number] 1 1 Encounter Details Date Type Department Care Team (Latest Contact Info) Description 03/19/2019 6:20 AM EDT - 03/19/2019 11:59 PM EDT Hospital Encounter [place] [address] Discharge Disposition: Home Social History Tobacco Use [...] GLECAPREVIR-PIBRENTAS VIR ORAL Take by mouth. 04/11/2019 oxyCODONE (ROXICODONE) 5 mg immediate release tablet Take 1 tablet by mouth nightly as needed for Pain. 5 tablet 0 03/26/2014 03/22/2019 documented as of this encounter Plan of Treatment Not on file documented as of this encounter Procedures Procedure Name Priority Date/Time Associated Diagnosis Comments ECHO COMPLETE Routine 03/19/2019 12:58 PM EDT Sepsis, due to unspecified organism IVDU (intravenous drug user) documented in this encounter Results * ECHO COMPLETE (03/19/2019 12:58 PM EDT) EF 60 [employer] Anatomical Region Laterality Modality Other 03/19/2019 Narrative 03/19/2019 1:31 PM EDT Procedure: ?Transthoracic Echocardiogram Patient: ?DOTTY Puga ? (Age): 1975(43y) Med Rec#: ? [id number] ?Sex: ?M ? Site Loc: ? [facility] ?Ht / Wt: ??165(cm)/60(kg) Pt. Loc: ?ICU ? BSA: ?1.66 Study Date: ?? 03/19/2019 ?Pt. Type: Inpatient Tape: ? Referring: Ky Osman MD Referring: RADHA ESPINOSA G Reading: Serjio Sanchez ([id number]) Cracking Machine Operator: Kamryn Arellano Diagnosis: *Sepsis, unspecified organism (A41.9) [...] E-wave Vmax ?0.5 ?m/sec ? MV deceleration [id number] ?msec ? MV A-wave Vmax ?0.5 ?m/sec [...] ? Mid-Inferior ?Normal ? Mid-Inferoseptal ?Normal ? [place]-Septal ? Normal ? [place]-Anterior ? Normal ? [place]-Lateral ?Normal ? [place]-Inferior ? Normal ? [place]-Tip ?Normal ? This report has been electronically signed by: Serjio Sanchez M.D. ? 03/19/2019 13:31:02 Images reviewed and interpretation verified [facility] Cardiac Ultrasound Laboratory Procedure Note Serjio Sanchez MD - 03/19/2019 Procedure: Transthoracic Echocardiogram Patient: DOTTY ZHONG(Age): 1975(43y) Med Rec#: [id number] Sex: M Site Loc: [facility] Ht / Wt: 165(cm)/60(kg) Pt. Loc: ICU BSA: 1.66 Study Date: 03/19/2019 Pt. Type: Inpatient Tape: Referring: Ky Osman MD Referring: RADHA ESPINOSA G Reading: Serjio Sanchez ([id number]) Cracking Machine Operator: Kamryn Arellano Diagnosis: *Sepsis, unspecified organism (A41.9) [...] MV E-wave Vmax 0.5 m/sec MV deceleration [id number] msec MV A-wave Vmax 0.5 m/sec MV [...] Normal Mid-Posterolateral Normal Mid-Inferior Normal Mid-Inferoseptal Normal [place]-Septal Normal [place]-Anterior Normal [place]-Lateral Normal [place]-Inferior Normal [place]-Tip Normal This report has been electronically signed by: Serjio Sanchez M.D. 03/19/2019 13:31:02 Images reviewed and interpretation verified [facility] Cardiac Ultrasound Laboratory Ky Osman MD ECHO ORDERABLES documented in this encounter Visit Diagnoses Not on filedocumented in this encounter Care Teams Tile Layer Drainage Relationship Specialty Start Date End Date Aileen Macias, PRAVE[address] [place] [address] PCP - General Family Medicine 09/04/18 02/10/21 documented as of this encounter
--- OUTSIDE RECORDS SUMMARY | 2024-06-03 20:22 | XMS_ITS | Encounter Summary ---
Author Organization [facility] [place] [address] Care Team Providers Care Head Of Sales And Marketing Name Role Phone Chon Motta MD Primary Care Provider [phone] Encounter Details Date Type Department Care Team (Late st Contact Info) Description 05/27/2022 11:26 AM EDT - 05/27/2022 11:59 PM EDT Hospital Encounter XRay at [address] [place] [address] Tresa Lazcano, [facility] [place] [address] Polyarthralgia Discharge Disposition: Home Social History Tobacco Use [...] Sig Dispensed Refills Start Date End Date betamethasone dipropionate (Diprolene) 0.05 % Cream APPLY A SMALL AMOUNT TO AFFECTED AREA TWICE A DAY NEEDED TO THINK SKIN ON HANDS 03/09/2022 sildenafiL (VIAGRA) 100 mg Tablet TAKE 1/2 TABLET BY MOUTH ONCE A DAY NEEDED PRIOR TO SEXUAL INTERCOURSE 04/01/2022 diclofenac (Voltaren) 1 % Gel Apply 2 g topically 4 times daily. 100 g 3 05/27/2022 ibuprofen (ADVIL;MOTRIN) 400 mg Tablet Take 1 tablet by mouth every 6 hours as needed for Pain. 30 tablet 12 03/22/2019 dextroamphetamine-amphe tamine XR (Adderall XR) 20 mg Capsule, Sust. Release 24 hr Take 40 mg by mouth daily. 05/03/2022 erythromycin with ethanoL (EMGEL) 2 % GelIndications:Other [...] g 02/11/2021 documented as of this encounter Plan of Treatment Not on file documented as of this encounter Procedures Procedure Name Priority Date/Time Associated Diagnosis Comments XR HAND MIN 3 VIEWS BILAT Routine 05/27/2022 11:55 AM EDT Polyarthralgia documented in this encounter Results * XR Hand Min 3 views Bilat (Generic) (05/27/2022 11:55 AM EDT) Anatomical Region Laterality Modality Hand Bilateral Digital Radiogra phy Impressions 05/27/2022 4:18 PM EDT 1. ??Age-indeterminate mildly displaced right small finger distal tuft fracture with adjacent soft tissue swelling. 2. ??No radiographic evidence of inflammatory or crystal deposition arthropathy. 3. ??Joint spaces are preserved. No appreciable osteophyte formation. I have personally reviewed the image(s) and the resident's interpretation and agree with the findings, Valentine Best MD at 05/27/2022 4:18 PM Thank you for letting us participate in the care of this patient. ??If you are a health care provider and have any questions regarding this report, please contact the number below. ??For patients who have questions please contact the health pet care associate that requested your imaging first. ? 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 There is also a small more proximally displaced osseous fragment. ??Joint spaces are preserved. There are marginal erosions, periostitis or ankylosis. Mild soft tissue swelling at the distal fifth finger. No soft tissue crystal deposition. Left hand. No acute fracture, subluxation or dislocation. Joint spaces are preserved. No marginal erosions, periostitis, or ankylosis. No soft tissue swelling. No soft tissue crystal deposition. 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 Joint spacesare preserved. There are marginal erosions, periostitis or ankylosis. Mildsoft tissue swelling at the distal fifth finger. No soft tissue crystaldeposition. Left hand. No acute fracture, subluxation or dislocation. Joint spacesare preserved. No marginal erosions, periostitis, or ankylosis. No softtissue swelling. No soft tissue crystal deposition. IMPRESSION 1. Age-indeterminate mildly displaced right small finger distal tuftfracture with adjacent soft tissue swelling. 2. No radiographic evidence of inflammatory or crystal depositionarthropathy. 3. Joint spaces are preserved. No appreciable osteophyte formation. I have personally reviewed the image(s) and the resident's interpretationand agree with the findings, Valentine Best MD at 05/27/2022 4:18 PM Thank you for letting us participate in the care of this patient. If youare a health care provider and have any questions regarding this report,please contact the number below. For patients who have questions please contactthe health pet care associate that requested your imaging first. Tresa Lazcano DO IMG DX ORDERABLES documented in this encounter Visit Diagnoses Diagnosis Polyarthralgia Pain in joint, multiple sites documented in this encounter Care Teams Head Of Sales And Marketing Relationship Specialty Start Date End Date Chon Motta MD [address] [place] [place] [address] PCP - General Family Medicine 02/11/21 documented as of this encounter
--- OUTSIDE RECORDS SUMMARY | 2024-06-03 20:22 | XMS_ITS | Encounter Summary ---
Author [facility] [place] [address] Care Team Providers Care Covering Machine Tender Name Role Phone Chon Motta MD Primary Care Provider [phone] Encounter Details Date Type Department Care Team (Late st Contact Info) Description 05/26/2022 [place] [address] Elizabeth Cohen MA Social History Tobacco Use Types Packs/Day Years [...] encounter Miscellaneous Notes * Telephone Encounter - Elizabeth Cohen RMA - 05/26/2022 10:54 AM EDT Attempted to reach patient for pre-charting. JOSIAH SPENCER documented in this encounter Plan of Treatment Not on file documented as of this encounter Visit Diagnoses Not on filedocumented in this encounter Care Teams Covering Machine Tender Relationship Specialty Start Date End Date Chon Motta MD [facility] [place] [address] PCP - General Family Medicine 02/11/21 documented as of this encounter
--- OUTSIDE RECORDS SUMMARY | 2024-06-03 20:22 | XMS_ITS | Encounter Summary ---
[facility] [place] [address] Care Team Providers Care Double Spindle Shaper Operator Name Role Phone Chon Motta MD Primary Care Provider [phone] Encounter Details Date Type Department Care Team (Late st Contact Info) Description 08/20/2022 Telephone [place] [address] Elizabeth Cohen MA Social History [...] Telephone Encounter - Elizabeth Cohen RMA - 08/20/2022 9:59 AM EDT Called patient for pre-charting, no answer. JOSIAH SPENCER documented in this encounter Plan of Treatment Not on file documented as of this encounter Visit Diagnoses Not on filedocumented in this encounter Care Teams Double Spindle Shaper Operator Relationship Specialty Start Date End Date Chon Motta MD [facility] [place] [address] PCP - General Family Medicine 02/11/21 documented as of this encounter
--- OUTSIDE RECORDS SUMMARY | 2024-06-03 20:22 | XMS_ITS | Encounter Summary ---
Author Organization [facility] [place] [address] Care Team Providers Care Can Operator Name Role Phone Chon Motta MD Primary Care Provider [phone] Encounter Details Date Type Department Care Team (Late st Contact Info) Description 05/26/2022 Telephone [place] [address] Elizabeth Cohen MA Social History [...] Encounter - Elizabeth Cohen RMA - 05/26/2022 10:53 AM EDT Attempted to reach patient for pre-charting. JOSIAH SPENCER documented in this encounter Plan of Treatment Not on file documented as of this encounter Visit Diagnoses Not on filedocumented in this encounter Care Teams Can Operator Relationship Specialty Start Date End Date Chon Motta MD [facility] [place] [address] PCP - General Family Medicine 02/11/21 documented as of this encounter
--- OUTSIDE RECORDS SUMMARY | 2024-06-03 20:22 | XMS_ITS | Encounter Summary ---
Author Organization [facility]ly [facility] [address] [place] [id number] Care Team Providers Care Internal Investigator Name Role Phone Chon Motta MD Primary Care Provider [phone] Reason for Visit * Consultation (Routine) - Closed Specialty Diagnoses / Procedures Referred By Yogi t Referred To Contact Rheumatology Diagnoses Arthritis Natan Gomez MD [facility] [address] [address] [facility] [place] [facility] Rheumatology [address] [place] [address] Referral ID Status Reason Start Date Expiration Date V isits Requested Visits Authorized [id number] Closed Consult, Test & Treat 04/12/2022 04/12/2023 1 1 Encounter Details Date Type Department Care Team (Late st Contact Info) Description 05/27/2022 9:30 AM EDT Office Visit Rheumatology at [place] [phone] Tresa Lazcano, DO [facility] [place] [address] Ananth Farooq MD [facility] [place] [address] Polyarthralgia (Primary Dx) Social History Tobacco Use Types Packs/Day Years [...] Sign Reading Time Taken Comments Blood Pressure 110/71 05/27/2022 9:20 AM EDT Pulse 85 05/27/2022 9:20 AM EDT Temperature 36.8 ??C (98.2 ??F) 05/27/2022 9:20 AM ED T Respiratory Rate 20 05/27/2022 9:20 AM EDT Oxygen Saturation 99% 05/27/2022 9:20 AM EDT Inhaled Oxygen Concentration - - Weight 65.4 kg (144 lb 3.2 oz) 05/27/2022 9:20 A M EDT Height 165.1 cm (5' 5) 05/27/2022 9:20 AM EDT Body Mass Index 24 05/27/2022 9:20 AM EDT documented in this encounter Progress Notes * Ananth Farooq MD - 05/27/2022 9:30 AM EDT Rheumatology Outpatient Consultation Note Reason for Consult: The patient is seen at the request of Natan Gomez for evaluation and treatment of childhood onset joint pains History of Present Illness: Patient not a very good historian Kevin Paulino is a 47 y.o. 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 He states that he started developing pain in both hips and knees when he was around 12 yrs of age, his mixing tumbler operator told him that he has arthritis; since then pain has progressed to other joints aswell - ankles, shoulders, sometimes wrists. Also has chronic mid back pain, and sometimes lower back pain when he exerts himself. His joint pain is worse at the end of the day, denies any morning stiffness, swelling, warmth, redness of joints. Endorses night sweats, intermittent chest pain (both atrest and on exertion). 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 HEENT (-)inflammatory eye disease, (-)vision loss, (-)epistaxis, (-)bleeding gums, (-)oral ulcers, (-)dry eyes, (-)dry mouth, (-)dysphagia, (-)GERD, (-)photo sensitivity CVS (+)chest pain, (-)palpitations Pulm (-)shortness of breath, (-)POOLE, (-)wheezes, (-)cough, (-)pleuritic pain GI (-)N/V, (-)abdominal pain, (-)hematochezia (-)hematuria, (-)dysuria MS (-)muscle weakness, (-)paralysis, (+)joint pain Endo (-)thyroid disorders, (-)diabetes Neuro (-)focal weakness, (-)paresthesias, (-)gait instability. Skin (-)Raynaud's, (-)rashes - no psoriasis Psych (-) mood disorder. 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 General: AAOx3, NAD HEENT: (-)scleral injection, mucous membranes are moist, no oral mucosal ulcerations Skin: (-)ulcers, hyperkeratotic palms, extensive vitiligo, non pruritic painless papules/purpura onB/l thighs and legs, also some interspersed areas of linear scratches 2/2 trauma Neck: Supple, no lymphadenopathy, full range of motion. Cardiovascular: RR, (-)murmurs, rubs, or gallops. Lungs: Clear to auscultation bilaterally. (-)R/R/W Back: T5-T6 tenderness + paraspinal tenderness in that region, no costovertebral angles tenderness bilaterally. Neuro: Alert and oriented x3. Strength 5/5 throughout Extremities: Shoulders: FROM, non-tender to palpation Elbows:FROM, (-)pain, (-)nodules Wrists: FROM, no swelling, mild tenderness B/L Hands: No synovitis, + MCP compression tenderness, mild tenderness at MCP jts, PIP joints B/L, fullclaw and fist. No nail pitting, left 5th digit nail dystrophic 2/2 trauma Hips: FROM, joint line tenderness + b/l, SANDY test neg for pain at SI joint Knees: (-)effusions, non-tender ROM Ankles: FROM, non-tender, no swelling Feet: + MTP compression tenderness B/L, no toe splaying Laboratory Data: Lab Results Component Value Date WBC 7.0 04/09/2022 WBC 7.0 04/09/2022 HGB 12.8 (L) 04/10/2019 HCT 37.9 (L) 04/10/2019 MCV 89.4 04/10/2019 PLATELET 308 04/10/2019 Lab Results Component Value Date NA 139 04/10/2019 K 3.6 04/10/2019 CL 100 04/10/2019 CO2 26 04/10/2019 BUN 8 (L) 04/10/2019 CREATININE 0.84 04/10/2019 GLUCOSE 85 04/10/2019 GLUCFASTING 122 (H) 03/22/2019 CALCIUM 9.8 04/10/2019 ESTGFR 109 04/10/2019 Lab Results Component Value Date ALT 1,382 (H) 04/10/2019 AST 739 (H) 04/10/2019 ALKPHOS 256 (H) 04/10/2019 BILITOT 1.2 04/10/2019 ALBUMIN 4.3 04/10/2019 PROT 7.8 04/10/2019 Lab Results Component Value Date SEDRATE 42 (H) 04/09/2022 Lab Results Component Value Date CRP 7.4 (H) 04/09/2022 04/09/2022 HLAB27: neg RF <10 03/18/2019 REGI neg Sm Muscle Ab neg HIV neg Ceruloplasmin 30 Studies: Left palm skin biopsy (05/06/2021): - Mild acanthosis and hypergranulosis DISCUSSION The subtle findings could represent a partially-treated versus chronic eczematous or contact dermatitis. There is not enough epidermal edema or abundant eosinophils to further substantiate this impression, but features of psoriasis are not identified. Otherwise, there is scant amorphous debris in the stratum corneum, parakeratin, and a rare neutrophil, but no evidence of tinea. Impression: Kevin Paulino is a 47 y.o. male with PMH of vitiligo, IVDU (cocaine), Hep C s/p completed treatment, Acute liver failure 2/2 acute hepatitis B infection, DRESS with vancomycin, bacteremia (s/p treatment) who presents today for evaluation of childhood onset joint pains. Patient has polyarthralgia with onset since childhood. No e/o active inflammation on exam but with non pruritic papules/purpurain LE. Given his PMH of vitiligo, Hep B and Hep C, my differentials would include viral arthritis, cryoglobulinemia, polyarticular/oligoarticular CARLOS (pain since childhood), lyme (works as dynamometer tester engine), ankylosing spondylitis (back pain, although it is more likely mechanical) or DJD if everything else ruled out Recommendations: ? Will order CBC, CMP ? Will order cryoglobulins ? Will order complement levels ? lyme serology ? Hep panel to look for disease activity ? UA ? XR B/L Hands ? Pain control with LA of Voltaren gel for now, until we have more recent LFTs ? Precautions as advised including sun protection The patient was seen and discussed with Dr Neno Farooq MD Rheumatology Fellow Pager: [phone] * Tresa Lazcano, DO - 05/27/2022 9:30 AM EDT ATTENDING ADDENDUM The patient's history was reviewed, and I interviewed and examined the patient with Dr. Farooq I agree with his summary, findings, and plan. Kevin Paulino is a 47 y.o. male referred for arthralgias. Patient has an interesting history of possible oligoarticular CARLOS which was not treated but seemingly resolved, IV drug abuse complicated with hepatitis B and C with liver failure in 2019 status post treatment. 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 His pain largely improves with rest and is worse with activity. He d denies any swelling warmth or erythema. He does have additional history of vitiligo and skin thickening diagnosis caretta derma and previously biopsied as eczema on his hand. He has no recent infections that he is aware of of the or GI tract and no other significant rashes. On exam he has no synovitis there is tenderness to palpation of the PIPs, MTPs and back. He has no erythema or warmth of the joints. He does have OA changes ofthe hands to include Bailee's and Heberden's nodes which are scattered. He does have a mild rash in his lower extremity that does not appear to be vasculitic in nature. He denies any Raynauds Phenomena. He has no oral or genital ulcers per his report and no photosensitive rashes. Given his history of vitiligo and hepatitis feel that further work-up is not indicated though suspect his symptoms are due to osteoarthritis. We will further evaluate him with plain films of the hands, inflammatory markers, hepatitis C and B viral loads and cryoglobulins. He is previously REGI and rheumatoid factor negative. If labs are within normal limits can consider scheduled NSAIDs or Tylenol depending on hisliver and kidney function. documented in this encounter Miscellaneous Notes * Addendum Note - aSmmy Hart - 05/27/2022 9:30 AM EDTAddended by: SAMMY HART on: 05/27/2022 12:01 PM Modules accepted: Orders documented in this encounter Plan of Treatment Not on file documented as of this encounter Procedures Procedure Name Priority Date/Time Associated Diagnosis Comments URINE HOLD Routine 05/27/2022 12:27 PM EDT URINALYSIS WITH REFLEX CULTURE Routine 05/27/2022 12:27 PM EDT Polyarthralgia HC LYME DISEASE, MIREYA Routine 12:15 PM EDT Polyarthralgia HC VENIPUNCTURE Routine 05/27/2022 12:15 PM EDT Polyarthralgia HEMOGRAM Routine 05/27/2022 12:15 PM EDT Polyarthralgia DIFFERENTIAL, AUTOMATED Routine 05/27/20 12:15 PM EDT Polyarthralgia HC CRYOGLOBULIN Routine 05/27/2022 12:15 PM EDT Polyarthralgia HC HCV QUANTIFICATION Routine 05/27/2022 12:15 PM EDT Polyarthralgia HC CBC,PLT & AUTO DIFF Routine 12:15 PM EDT Polyarthralgia HC CH50 Routine 05/27/2022 12:15 PM EDT Polyarthralgia HC COMPLEMENT,C3 SERUM Routine 12:15 PM EDT Polyarthralgia HC COMPLEMENT C4, PLASMA Routine 05/27/2022 12:15 PM EDT Polyarthralgia COMPREHENSIVE METABOLIC PANEL (NON-FASTING) Routine 05/27/2022 12:15 PM EDT Polyarthralgia documented in this encounter Results * Urine Hold (05/27/2022 12:27 PM EDT) Urine Hold Sample in lab. [facility] Urine Urine / Unknown 05/27/2022 1 2:27 PM EDT 05/27/2022 12:38 PM EDT Ananth Farooq MD URINE ORDERABLES [facility] [place] [address] * Urinalysis with reflex Culture (05/27/2022 12:27 PM EDT) Glucose UA Negative Negative mg/dL [facility] Protein UA Negative Negative mg/dL [facility] Bilirubin UA Negative Negative mg/dL [facility] Comment: Clinical correlation required for positive Urine Bilirubin results as false positive may occur with some drugs and drug related products. If a false positive is suspected a serum total bilirubin should be considered if clinically indicated. Urobilinogen UA Normal Normal mg/dL [facility] pH UA 6.0 5.0 - 8.0 [facility] Blood UA Negative Negative mg/dL [facility] Ketones UA Negative Negative mg/dL [facility] Nitrite UA Negative Negative [facility] Leukocytes UA Negative Negative [facility] Appearance UA Clear Clear [facility] Spec [place] UA 1.012 1.005 - 1.030 [facility] Color UA Yellow Yellow [facility] Culture Reflexed No [facility] Urine NS 05/27/2022 12:2 7 PM EDT 05/27/2022 12:34 PM EDT Narrative Resulting Agency Comment Spec In Lab Tresa Lazcano DO URINE ORDERABLES [facility] [place] [address] * Differential, Automated (05/27/2022 12:15 PM EDT) Neutrophils % 65.2 % [facility] Neutr Abs (ANC) 4.19 1.70 - 6.10 x10(3)/[facility] Lymphocytes % 25.4 % [facility] Lymphocytes Abs 1.6 0.9 - 3.2 x10(3)/[facility] Monocytes % 6.4 % [facility] Monocyte Abs 0.4 0.3 - 0.9 x10(3)/[facility] Eosinophils % 2.0 % [facility] Eosinophils Abs 0.1 0.0 - 0.4 x10(3)/[facility] Basophils % 0.8 % [facility] Basophils Abs 0.0 0.0 - 0.1 x10(3)/[facility] Immature Gran % 0.20 % [facility] Comment: Immature granulocytes(IG's)percentage and absolute count will include metamyelocytes, myelocytes, and promyelocytes. Blood smears from CBCs yielding IG's will be scanned manually for concordance. If this scan disagrees with the automated IG or if promyelocytes are noted, a manual differential will be performed. Andreina Gran Abs 0.01 0.00 - 0.04 x10(3)/[facility] Blood 05/27/2022 12:1 5 PM EDT 05/27/2022 12:27 PM EDT Narrative Resulting Agency Comment Spec In Lab Ananth Farooq MD HEMATOLOGY ORDERABLE S [facility] [place] [address] * Hemogram (05/27/2022 12:15 PM EDT) WBC 6.4 4.0 - 9.5 x10(3)/[facility] RBC 4.97 4.58 - 5.54 x10(6)/[facility] Hemoglobin 14.8 13.7 - 16.5 g/dL [facility] Hematocrit 43.7 40.5 - 48.5 % [facility] MCV 87.9 82.9 - 93.1 fL [facility] MCH 29.8 27.5 - 32.1 pg [facility] MCHC 33.9 32.0 - 35.7 g/dL [facility] Platelets 252 145 - 357 x10(3)/[facility] RDWSD 42.3 36.0 - 45.0 [facility] RDWCV 13.1 11.4 - 13.8 % [facility] MPV 9.2 7.6 - 12.9 [facility] nRBC % Auto 0.0 % [facility] nRBC Abs Auto 0.000 0.000 - 0.000 x10(3)/mcL [facility] Blood 05/27/2022 12:1 5 PM EDT 05/27/2022 12:27 PM EDT Narrative Resulting Agency Comment Spec In Lab Ananth Farooq MD HEMATOLOGY ORDERABLE S Performing Organization Address City/[facility]/ZIP Co de Phone Number [facility] [place] [address] * Hepatitis B DNA, quantitative, PCR (05/27/2022 12:15 PM EDT) Hepatitis B DNA, quantitative, PCR Result: <10 IU/mL (Target Not Detected) Indication for Study: HBV Infection Analysis: Guillen Alinity m HBV assay is an in vitro polymerase chain reaction (PCR) assay for the quantification of Hepatitis B Virus (HBV) DNA in human plasma (EDTA) from chronically HBV-infected individuals. Sample: plasma Method: Guillen RealTime HBV Assay Linear Range: 10 IU/mL ? 1,000,000,000 IU/mL Note: The Guillen Alinity m HBV Assay has been approved by the U.S. Food and Drug Administration. [facility] Blood 05/27/2022 12:1 5 PM EDT 05/28/2022 7:48 AM EDT Narrative Resulting Agency Comment Spec In Lab Tresa Lazcano DO CHEMISTRY ORDERABL ES Performing Organization Address City/[facility]/ZIP Co de Phone Number [facility] [place] [address] * Hepatitis C RNA, quantitative, PCR (05/27/2022 12:15 PM EDT) HCV Viral Load <12 IU/mL [facility] HCV Viral Load Result: <12 IU/mL (Target Not Detected) Indication for Study: Hepatitis C Infection Analysis: The Guillen Alinity m HCV assay is an in vitro reverse transcriptase polymerase chain reaction (RT-PCR)for the quantification of hepatitis C viral (HCV) RNA in human serum or plasma (EDTA) from HCV-infected individuals. Sample: plasma/serum Method: Guillen Alinity m HCV Assay Linear Range: 12 IU/mL - 100,000,000IU/mL Note: The Guillen Alinity HCV Assay has been approved by the U.S. Food and Drug Administration. [facility] Comment: [VERIFIED DATE]05.28.22 Verified By:Inessa Francis (Electronic Signature) Blood 05/27/2022 12:1 5 PM EDT 05/28/2022 7:57 AM EDT Narrative Resulting Agency Comment Spec In Lab Tresa Lazcano DO IMMUNOLOGY ORDERAB LES Performing Organization Address [facility]/ZIP Co de Phone Number [facility] [place] [address] * Lyme IgG & IgM Antibody (05/27/2022 12:15 PM EDT) [facility] Lyme Screening Antibody Neg Neg [facility] Blood 05/27/2022 12:1 5 PM EDT 05/28/2022 6:00 AM EDT Narrative Resulting Agency Comment Spec In Lab Tresa Lazcano DO IMMUNOLOGY ORDERAB LES Performing Organization Address [facility]/ZIP Co de Phone Number [facility] [place] [address] * Comprehensive metabolic panel (non-fasting) (05/27/2022 12:15 PM EDT) [facility] Glucose Lvl 131 65 - 199 mg/dL [...] Resulting Agency Comment Spec In Lab Tresa D Neno DO CHEMISTRY ORDERABL ES Performing Organization Address [facility] Co de Phone Number [facility] [place] [address] * (ABNORMAL) Complement, Total (05/27/2022 12:15 PM EDT) Complement Total >95(H) 42 - 95 unit/mL [facility] Blood 05/27/2022 12:1 5 PM EDT 05/27/2022 12:27 PM EDT Narrative Resulting Agency Comment Spec In Lab Tresa D Neno DO CHEMISTRY ORDERABL ES Performing Organization Address [facility] Co de Phone Number [facility] [place] [address] * C4 Complement (05/27/2022 12:15 PM EDT) C4 Complement 29 10 - 40 mg/dL [facility] Blood 05/27/2022 12:1 5 PM EDT 05/27/2022 12:27 PM EDT Narrative Resulting Agency Comment Spec In Lab Tresa D Neno DO CHEMISTRY ORDERABL ES Performing Organization Address [facility] Co de Phone Number [facility] [place] [address] * C3 Complement (05/27/2022 12:15 PM EDT) C3 Complement 127 90 - 180 mg/dL [facility] Blood 05/27/2022 12:1 5 PM EDT 05/27/2022 12:27 PM EDT Narrative Resulting Agency Comment Spec In Lab Tresa Edd Neno DO CHEMISTRY ORDERABL ES Performing Organization Address [facility] Co de Phone Number [facility] [place] [address] * Cryoglobulin (05/27/2022 12:15 PM EDT) Cryoglob See Note [facility] Comment: Cryoglobulins negative at 24 and 72 hours. Identification of cryoglobulins is dependent upon appropriate sample handling. False negative results may occur if the proper sample handling steps are not followed. This test was developed and its performance characteristics determined by [facility]. It has not been cleared or approved by the FDA. The laboratory is regulated under CLIA as qualified to perform high-complexity testing. This test is used for clinical purposes. It should not be regarded as investigational or for research. Blood 05/27/2022 12:1 5 PM EDT 05/27/2022 12:21 PM EDT Narrative Resulting Agency Comment Spec In Lab Tresa Lazcano DO CHEMISTRY ORDERABL ES [facility] [place] [address] * XR Hand Min 3 views Bilat [...] who have questions please contact the health nurse behavioral health care that requested your imaging first. ? 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 Electronically signed by: Valentine Best MD, [facility]([phone]), at 05/27/2022 4:18 PM Tresa Lazcano DO IMG DX ORDERABLES documented in this encounter Visit Diagnoses Diagnosis Polyarthralgia- Primary Pain in joint, multiple sites Polyarthralgia Pain in joint, multiple sites documented in this encounter Care Teams Internal Investigator Relationship Specialty Start Date End Date Chon Motta MD [address] [place] [address] PCP - General Family Medicine 02/11/21 documented as of this encounter
--- OUTSIDE RECORDS SUMMARY | 2024-06-03 20:23 | XMS_ITS | Encounter Summary ---
Author Organization [facility] Address [address] [place] [address] Care Team Providers Care Clinical Informatics Physician Name Role Phone Jena Minor NP Primary Care Provider [phone] Encounter Details Date Type Department Care Team (Late st Contact Info) Description 11/28/2020 Lab Requisition [facility] Pathology & Laboratory Medicine - [address] [address] Outr Resulting Lab, Provider Social History Tobacco Use Types Packs/Day Years Used Date Smoking Tobacco: Every Day Cigarettes Cigars Alcohol Use Standard Drinks/Week Comments Yes 0 (1 standard drink = 0.6 oz pur e alcohol) Interpersonal Safety Answer Date Record ed Physically Hurt Never 06/08/2020 Verbally Threaten Not on file 06/08/2020 Sex and Gender Information Value Date Recorded Sex Assigned at Not on file Gender Identity Not on file Sexual Orientation Not on file documented as of this encounter Plan of Treatment Not on file documented as of this encounter Procedures Procedure Name Priority Date/Time Associated Diagnosis Comments DO NOT ORDER STANDALONE - BROAD COVID TEST Today 11/28/2020 8:57 EST COVID-19 TESTING Routine 11/28/2020 8:57 EST documented in this encounter Results * DO NOT ORDER STANDALONE - BROAD COVID TEST (11/28/2020 8:57 EST) COVID-19 rt-PCR Result NEGATIVE Negative 11/30/2020 7:46 EST [facility] Comment: 2019-novel Coronavirus (2019-nCoV) not detected by the qRT-PCR assay. Consider testing for other respiratory viruses or re-collecting for 2019-nCoV testing. Note: Optimum timing for peak viral levels during infections caused by 2019-nCoV have not been determined. Collection of multiple specimens from the same patient may be necessary to detect the virus. Limitations Positive results are indicative of active infection with SARS-CoV-2 but do not rule out bacterial infection or co-infection with other viruses. The agent detected may not be the definite cause of disease. In addition, detection of viral RNA may not indicate the presence of infectious virus or that SARS-CoV-2 is the causative agent for clinical symptoms. Negative results do not preclude SARS-CoV-2 infection and should not be used as the sole basis for patient management decisions. Negative results must be combined with clinical observations, patient history, and epidemiological information. False negative results may also occur if amplification inhibitors are present in the specimen or if inadequate numbers of organisms are present in the specimen. Optimum specimen types and timing for peak viral levels during infections caused by SARS-CoV-2 have not been fully determined. Collection of multiple specimens (types and time points) from the same patient may be necessary to detect the virus. The test was validated for use with upper respiratory specimens obtained via nasopharyngeal or oropharyngeal swabs in VTM, UTM, M4, M5, M6, saline, and MTM media. The performance of this test has not been established for other specimens. Specimens collected using other FDA recommended Specimen Collection Materials listed in the FDA COVID-19 Diagnostic Technologies communication (January 31, 2020) are processed with the caveat that they were not all validated for use with this test and the result must be interpreted in this context. Furthermore, a false negative results may occur if a specimen is improperly collected, transported or handled. If the virus mutates in the RT-PCR target region, SARS-CoV-2 may not be detected or may be detected less predictably. Inhibitors or other types of interference may produce a false negative result. An interference study evaluating the effect of common cold medications was not performed. This test is not FDA-cleared but its performance characteristics were established by our CLIA-certified, CAP-accredited, high complexity laboratory in accordance with CLIA regulations, [employer] (CAP) guidelines (Jan 24, 2020), and FDA guidance (Jan 05, 2020). This test is only for use under the Food and Drug Administration's Emergency Use Authorization. Swab ENTIRE NASOPHARYNX / Unknown 11/28/2020 8:57 EST 11/28/2020 15:56 EST Provider Outr Resulting Lab MICROBIOLOGY - GENERAL ORDERABLES [facility] CINEBAR, MD * COVID-19 TESTING (11/28/2020 8:57 EST) COVID-19 rt-PCR Result NEGATIVE Negative 11/30/2020 10:29 EST [facility] Comment: 2019-novel Coronavirus (2019-nCoV) not detected by the qRT-PCR assay. Consider testing for other respiratory viruses or re-collecting for 2019-nCoV testing. Note: Optimum timing for peak viral levels during infections caused by 2019-nCoV have not been determined. Collection of multiple specimens from the same patient may be necessary to detect the virus. Limitations Positive results are indicative of active infection with SARS-CoV-2 but do not rule out bacterial infection or co-infection with other viruses. The agent detected may not be the definite cause of disease. In addition, detection of viral RNA may not indicate the presence of infectious virus or that SARS-CoV-2 is the causative agent for clinical symptoms. Negative results do not preclude SARS-CoV-2 infection and should not be used as the sole basis for patient management decisions. Negative results must be combined with clinical observations, patient history, and epidemiological information. False negative results may also occur if amplification inhibitors are present in the specimen or if inadequate numbers of organisms are present in the specimen. Optimum specimen types and timing for peak viral levels during infections caused by SARS-CoV-2 have not been fully determined. Collection of multiple specimens (types and time points) from the same patient may be necessary to detect the virus. The test was validated for use with upper respiratory specimens obtained via nasopharyngeal or oropharyngeal swabs in VTM, UTM, M4, M5, M6, saline, and MTM media. The performance of this test has not been established for other specimens. Specimens collected using other FDA recommended Specimen Collection Materials listed in the FDA COVID-19 Diagnostic [employer] communication (January 31, 2020) are processed with the caveat that they were not all validated for use with this test and the result must be interpreted in this context. Furthermore, a false negative results may occur if a specimen is improperly collected, transported or handled. If the virus mutates in the RT-PCR target region, SARS-CoV-2 may not be detected or may be detected less predictably. Inhibitors or other types of interference may produce a false negative result. An interference study evaluating the effect of common cold medications was not performed. This test is not FDA-cleared but its performance characteristics were established by our CLIA-certified, CAP-accredited, high complexity laboratory in accordance with CLIA regulations, College [employer] (CAP) guidelines (Jan 24, 2020), and FDA guidance (Jan 05, 2020). This test is only for use under the Food and Drug Administration's Emergency Use Authorization. Performing Lab [facility] 11/30/2020 10:29 EST [facility] Swab 11/28/2020 8:57 EST 11/28/2020 15:56 EST Provider Outr Resulting Lab MICROBIOLOGY - GENERAL ORDERABLES Performing Organization Address City/State/[facility] Co de Phone Number [facility] [address] [place] [id number] [place] [address] LABORATORY [place], [place] documented in this encounter Visit Diagnoses Not on filedocumented in this encounter Care Teams Clinical Informatics Physician Relationship Specialty Start Date End Date Jena Minor NP PCP - General 06/30/15 08/15/22 documented as of this encounter
--- OUTSIDE RECORDS SUMMARY | 2024-06-03 20:23 | XMS_ITS | Clinical Summary ---
Author Organization [facility] Address [address] [place] [address] Care Team Providers Care Licensed Direct Entry Midwife Name Role Phone Unavailable Primary Care Provider Unavailabl e Allergies No known active allergies Medications Medication Sig Dispensed Refills Start Date End Date Status HYDROcodone-acetaminop hen (NORCO) 5-325 mg tablet Take 1-2 Tabs by mouth every 6 hours as needed for Pain Daily Max: 8 Tabs 10 Tab 0 06/30/2015 Active Social History Tobacco Use Types Packs/Day Years [...] on file Sexual Orientation Not on file Obstetrics History Last Filed Vital Signs Vital Sign Reading Time Taken Comments Blood Pressure - - Pulse 88 06/30/2015 1205 EDT Temperature 36.7 ??C (98.1 ??F) 06/30/2015 1205 EDT Respiratory Rate - - Oxygen Saturation - - Inhaled Oxygen Concentration - - Weight 68 kg (150 lb) 06/30/2015 1205 EDT Height - - Body Mass Index - - Plan of Treatment Health Maintenance Due Date Last Done Comments Hepatitis B Vaccine (1 of 3 - 19+ 3-dose series) 1996 COVID-19 Vaccine ( - 2022- season) 2023 Hepatitis C Screen Completed 08/28/2021, 12/26/2019 Procedures Procedure Name Priority Date/Time Associated Diagnosis Comments HCV RNA DETECT QUANT Routine 08/28/2021 11:48 EDT from Last 3 Months or Most Recently Relevant to Health Maintenance Results * HCV RNA DETECT QUANT (08/28/2021 11:48 EDT) HCV RNA Qualitative Undetected Undetected 08/31/2021 12:42 EDT [facility] Blood VENOUS BLOOD / Unknown 08/28/2021 11:48 EDT 08/28/2021 21:15 EDT Narrative [facility] - 08/31/2021 12:42 EDT New platform in use 06/01/2021 The quantification range of this assay is 15 IU/mL to 100,000,000 IU/mL. Testing was performed using the Carter HCV test ([employer] with the carter Exalead0 System. Provider Outr Resulting Lab CHEMISTRY & BLOOD GAS ORDERABLES [facility] [address] [place] [address] from Last 3 Months or Most Recently Relevant to Health Maintenance
--- OUTSIDE RECORDS SUMMARY | 2024-06-03 20:23 | XMS_ITS | Encounter Summary ---
Author Organization [facility] Address [address] [place] [address] Care Team Providers Care Video Systems Engineer Name Role Phone Jena Minor NP Primary Care Provider [phone] Encounter Details Date Type Department Care Team (Late st Contact Info) Description 08/28/[address] [facility] Pathology & Laboratory Medicine - [address] [address] Outr Resulting Lab, Provider Social History Tobacco [...] Procedure Name Priority Date/Time Associated Diagnosis Comments HIV 1/2 ANTIGEN AND ANTIBODY, 4TH GENERATION Routine 08/28/2021 11:48 EDT documented in this encounter Results * HIV 1/2 ANTIGEN AND ANTIBODY, 4TH GENERATION (08/28/2021 11:48 EDT) HIV 1 and 2 Antibody/p24 Antigen, 4th Generation Negative Negative 08/29/2021 9:40 EDT [facility] Comment: If acute HIV-1 infection is suspected in a high risk ??patient, submit plasma specimen for HIV-1 RNA quantitation test. Fourth Generation assay performed on the Siemens Spontlyaur. Blood VENOUS BLOOD / Unknown 08/28/2021 11:48 EDT 08/28/2021 21:15 EDT Provider Outr Resulting Lab IMMUNOLOGY A ND SEROLOGY ORDERABLES [facility] [address] [place] [address] documented in this encounter Visit Diagnoses Not on filedocumented in this encounter Care Teams Video Systems Engineer Relationship Specialty Start Date End Date Jena Minor NP PCP - General 06/30/15 08/15/22 documented as of this encounter
--- OUTSIDE RECORDS SUMMARY | 2024-06-03 20:23 | XMS_ITS | Encounter Summary ---
Author Organization [facility] [place] [address] Care Team Providers Care Continuous Absorption Process Operator Name Role Phone Laverne Beavers MD Primary Care Provider [phone] Reason for Visit * Reason Comments Shoulder Injury Encounter Details Date Type Department Care Team (Late st Contact Info) Description 03/26/2014 9:27 AM EDT - 03/26/2014 10:21 AM EDT [place] [address] Isidro Hassan PA [address] [place] [address] Guillermo Woods MD [facility] [place] [address] Shoulder contusion, left, initial encounter; Abrasions of multiple sites Discharge Disposition: DP-Discharged Social History Tobacco Use Types Packs/Day Years Used Date Smoking Tobacco: Every Day Sex and Gender Information Value Date Recorded Sex Assigned at Not on file Gender Identity Not on file Sexual Orientation Not on file documented as of this encounter Last Filed Vital Signs Vital Sign Reading Time Taken Comments Blood Pressure 134/77 03/26/2014 9:41 AM EDT Pulse 98 03/26/2014 9:41 AM EDT Temperature 36.8 ??C (98.2 ??F) 03/26/2014 9:41 AM ED T Respiratory Rate 16 03/26/2014 9:41 AM EDT Oxygen Saturation 99% 03/26/2014 9:41 AM EDT Inhaled Oxygen Concentration - - Weight 70.3 kg (155 lb) 03/26/2014 9:41 AM EDT Height - - Body Mass Index - - documented in this encounter Discharge Instructions * Discharge Instructions* Isidro Hassan PA - 03/26/2014 10:10 AM EDT Keep your wound clean with soap and water. Reevaluate with any signs of infection. Ice to the effected areas as helpful Tylenol or Motrin for pain Oxycodone as prescribed for nighttime pain. Only. Remain in your sling for 2-3 days as needed. Please do pendulum exercises 3-4 times a day to keep your shoulder joint loose. Evaluate with any worsening symptoms. * Attachments The following attachments cannot be sent through Care Everywhere. * ABRASIONS (STATELESS) * SHOULDER SPRAIN (STATELESS) documented in this encounter Medications at Time of Discharge Medication Sig Dispensed Refills Start Date End Date oxyCODONE (ROXICODONE) 5 mg immediate release tablet Take 1 tablet by mouth nightly as needed for Pain. 5 tablet 0 03/26/2014 03/22/2019 documented as of this encounter ED Notes * Loretta Wadsworth RN - 03/26/2014 10:11 AM EDT Patients abrasions being cleaned. Xray taken * Isidro Hassan PA - 03/26/2014 10:04 AM EDT Images from the original note were not included. Chief Complaint Patient presents with ??? Shoulder Injury HPI 38-year-old male [id number], comes in today for evaluation of an injury to his left shoulder. This occurred today when the patient slid down the roof and hit his shoulder at the bottom. The patient says the impacted on the top of the shoulder. He also suffered abrasions to his left arm andhand and one to his left leg. He did not hit his head. He denies neck or back pain. He denies abdomi nal or chest pain. He denies numbness or tingling in his left arm. He says that he has pain when hegoes to forward flex. The shoulder or abduction. He has no numbness or tingling. Is no pain in the elbow or the wrist. The patient has no history of left shoulder injuries. He has not taken anything for this. Is uncertain about his last tetanus. No Known Allergies Review of Systems Constitutional: Negative for fever. HENT: Negative for trouble swallowing, neck pain and neck stiffness. Respiratory: Negative for cough and shortness of breath. Cardiovascular: Negative for chest pain. Gastrointestinal: Negative for nausea and vomiting. Genitourinary: Negative for dysuria, urgency, frequency and hematuria. Musculoskeletal: Positive for arthralgias (left shoulder). Negative for back pain. Skin: Positive for wound (Abrasions to the left shoulder left arm left hand and left leg). Negativefor rash. Neurological: Negative for light-headedness, numbness and headaches. Physical Exam Nursing note and vitals reviewed. Constitutional: He is oriented to person, place, and time. He appears well- developed and well-nourished. HENT: Head: Normocephalic and atraumatic. Mouth/Throat: Oropharynx is clear and moist. Eyes: Conjunctivae normal and EOM are normal. Pupils are equal, round, and reactive to light. Neck: Normal range of motion. Neck supple. No spinous process tenderness and no muscular tendernesspresent. Cardiovascular: Normal rate, regular rhythm and normal heart sounds. Pulmonary/Chest: Effort normal and breath sounds normal. He exhibits no tenderness. Abdominal: Soft. There is no tenderness. Musculoskeletal: Left shoulder: He exhibits decreased range of motion (due to pain particularly forward flexion and abduction), tenderness (anterior shoulder, over the abrasion as drawn.) and laceration (several abrasions noted to the left arm as well as the left hand). He exhibits no bony tenderness, no swelling, no effusion, no crepitus, no deformity, normal pulse and normal strength. Left elbow: Normal. Left wrist: Normal. Arms: I am able to take the patient for good range of motion. Most of his pain is in the anterior shoulder and it is worse when he forward flexes or rotates to abduction. He is neurovascularly intact throughout the arm. He has good audit reviewer strength and normal function in the elbow. Neurological: He is alert and oriented to person, place, and time. Skin: Skin is warm and dry. Psychiatric: He has a normal mood and affect. His behavior is normal. X-ray: Independent review the x-ray by myself demonstrates no fractures or dislocations of the shoulder. The radiology reading is reviewed and is:Findings No fracture or dislocation. Procedures MDM ED Course: The patient was evaluated as above. His tetanus status will be updated. He has no evidence of fractures or dislocations of the shoulder, but has suffered several abrasions. The abrasions were thoroughly washed and dressed. The patient will be discharged home with wound care instructions.Was recommended. Use Tylenol or ibuprofen primarily for pain. Is given a small amount of oxycodone for nighttime. If needed. Sling will be used for 2-3 days. Follow up with his primary care physicianat the end of the week and he will be kept off work for the next 3 days. Will. Reevaluate with any worsening symptoms. In the interim. Isidro Hassan PA 03/26/14 1201 documented in this encounter Miscellaneous Notes * Discharge Summary - Provider, Scanning - 03/27/2014 8:25 AM EDT * Miscellaneous - Provider, Scanning - 03/26/2014 3:58 PM EDT * ED Triage - Casandra Ventura RN - 03/26/2014 9:38 AM EDT C/o left shoulder pain after slipping down a roof and driving my shoulder into an electric reel Also c/o scraped my left leg, arm and knuckle. Distal CSM intact. A+O PWD denies LOC denies neck pain. Pain is in joint. No obvious deformity. documented in this encounter Plan of Treatment Not on file documented as of this encounter Procedures Procedure Name Priority Date/Time Associated Diagnosis Comments XR SHOULDER STAT 03/26/2014 10:00 AM EDT documented in this encounter Results * XR shoulder (03/26/2014 10:00 AM EDT) Anatomical Region Laterality Modality Shoulder N/A Radiographic Deysi ging 03/26/2014 10:0 0 AM EDT Narrative 03/26/2014 11:55 AM EDT Examination SHOULDER MINMUM TWO VIEWS/LEFT Clinical History c/o pain left shoulder after direct blow 45 minutes ago (slid down a roof and struck a reel with his shoulder) Comparison None Technique Multiple views. Findings No fracture or dislocation. Procedure Note Alexis Bailey MD - 03/26/2014 Examination SHOULDER MINMUM TWO VIEWS/LEFT Clinical History c/o pain left shoulder after direct blow 45 minutes ago (slid down a roofand struck a reel with his shoulder) Comparison None Technique Multiple views. Findings No fracture or dislocation. Guillermo Woods MD IMG DX ORDERABLES documented in this encounter Visit Diagnoses Diagnosis Shoulder contusion, left, initial encounter Abrasions of multiple sites Abrasion or friction burn of other, multiple, and unspecified sites, without mention of infection documented in this encounter Care Teams Continuous Absorption Process Operator Relationship Specialty Start Date End Date Laverne Beavers MD [address] [place] [address] PCP - General 09/29/10 09/03/18 documented as of this encounter
--- OUTSIDE RECORDS SUMMARY | 2024-06-03 20:23 | XMS_ITS | Encounter Summary ---
Author Organization [facility] Address [address] [place] [address] Care Team Providers Care Excelsior Machine Feeder Name Role Phone Jena Minor NP Primary Care Provider [phone] Encounter Details Date Type Department Care Team (Latest Contact Info) Description 08/03/2018 19:09 EDT - 08/03/2018 23:59 EDT Hospital Encounter [facility] [address] [place] [address] Zion Paz MD [address] [address] Natan Nye MD [address] [address] Discharge Disposition: Auto Discharge Social History Tobacco Use Types Packs/Day Years Used Date Smoking Tobacco: Every Day Cigarettes Cigars Alcohol Use Standard Drinks/Week Comments Yes 0 (1 standard drink = 0.6 oz pur e alcohol) Sex and Gender Information Value Date Recorded Sex Assigned at Not on file Gender Identity Not on file Sexual Orientation Not on file documented as of this encounter Discharge Diagnoses Diagnosis I38 Endocarditis, 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] documented in this encounter Medications at Time of Discharge Medication Sig Dispensed Refills Start Date End Date HYDROcodone-acetaminophen (NORCO) 5-325 mg tablet Take 1-2 Tabs by mouth every 6 hours as needed for Pain Daily Max: 8 Tabs 10 Tab 0 06/30/2015 documented as of this encounter Discharge Disposition Disposition Code Departure Means Destination Auto Discharge Home documented in this encounter Plan of Treatment Not on file documented as of this encounter Visit Diagnoses Not on filedocumented in this encounter Care Teams Excelsior Machine Feeder Relationship Specialty Start Date End Date Jena Minor NP PCP - General 06/30/15 08/15/22 documented as of this encounter
--- OUTSIDE RECORDS SUMMARY | 2024-06-03 20:23 | XMS_ITS | Encounter Summary ---
Author Organization [facility] Address [address] [place] [address] Care Team Providers Care Fitting Room Associate Name Role Phone Jena Minor NP Primary Care Provider [phone] Encounter Details Date Type Department Care Team (Latest Contact Info) Description 01/22/2019 17:21 EDT - 01/22/2019 23:59 EDT Hospital Encounter [address] [address] Unknown, Provider, Discharge Disposition: Home or Self Care Social History Tobacco Use Types Packs/Day Years [...] Discharge Disposition Disposition Code Departure Means Destination Home or Self [facility]itent[facility] documented in this encounter Plan of Treatment Not on file documented as of this encounter Visit Diagnoses Not on filedocumented in this encounter Care Teams Fitting Room Associate Relationship Specialty Start Date End Date Jena Minor NP PCP - General 06/30/15 08/15/22 documented as of this encounter
--- OUTSIDE RECORDS SUMMARY | 2024-06-03 20:23 | XMS_ITS | Referral Summary ---
Author Organization [facility] Address [address] [place] [address] Care Team Providers Care Handle Lathe Operator Name Role Phone Unavailable Primary Care Provider [...] Mass Index - - Plan of Treatment Not on file Procedures Procedure Name Priority Date/Time Associated Diagnosis Comments HCV RNA DETECT QUANT Routine 08/28/2021 11:48 EDT from Last 3 Months or Most Recently Relevant to Health Maintenance Results * HCV RNA DETECT QUANT (08/28/2021 11:48 EDT) HCV RNA Qualitative Undetected Undetected 08/31/2021 12:42 EDT [facility] Blood VENOUS BLOOD / Unknown 08/28/2021 11:48 EDT 08/28/2021 21:15 EDT Narrative [facility] - 08/31/2021 12:42 EDT New platform in use 06/01/2021 The quantification range of this assay is 15 IU/mL to 100,000,000 IU/mL. Testing was performed using the Carter HCV test ([employer] with the carter Intela0 System. Provider Outr Resulting Lab CHEMISTRY & BLOOD GAS ORDERABLES [facility] [address] [place] [address] from Last 3 Months or Most Recently Relevant to Health Maintenance
--- OUTSIDE RECORDS SUMMARY | 2024-06-03 20:23 | XMS_ITS | Encounter Summary ---
Author Organization [facility] Address [address] [place] [address] Care Team Providers Care Casting Assistant Name Role Phone Minor, Jena MORENO Primary Care Provider [phone] Encounter Details Date Type Department Care Team (Late st Contact Info) Description 01/22/2019 Results Only [facility] [phone] Giovana Motta MD [facility] [address] [place], [place] [id number] Social History Tobacco Use Types Packs/Day Years [...] Priority Date/Time Associated Diagnosis Comments SURGICAL PATHOLOGY Routine 01/22/2019 16 :05 EDT documented in this encounter Results * SURGICAL PATHOLOGY (01/22/2019 16:05 EDT) Pathology Report: SURGICAL PATHOLOGY REPORT Reports generated via electronic interface contain original data; however they are lacking the format of the original report. Caution should be taken when reading/interpret ing unformatted reports. Name: ? DOTTY GABRIEL Puga ? Accession #: ? [id number] ? : ? 1975 (Age: 43) ??M ? Collect Date: ? 01/22/2019 ? Location: ? [facility] ? Receive Date: ? 01/23/2019 ? Provider: GIOVANA MOTTA MD Copy to: ? Final Pathologic Diagnosis: SKIN OF NASAL ALA, RIGHT, SHAVE BOPSY: - Hypertrophic actinic keratosis, fragmented, with neutrophilic scale. Document reviewed and electronically signed by: EDEN HALL MD Report ??Date: 01/24/2019 13:58 By the signature above, the attending physician certifies that he/she has personally conducted a gross and/or microscopic examination of the described specimens and rendered or confirmed the above diagnosis. Specimen(s) Received: Shave base of ulcer R nasal ala Clinical History: Ulcerative nasal lesion, h/o vitiligo, BCC? Gross Description: ? Received in formalin labelled with proper patient identification (initials B, J) and right nares is a shave biopsy containing three ram-brown, crusted fragments of skin (0.2 x 0.1 x 0.1 cm, 0.3 x 0.2 x 0.1 cm, and 0.5 x 0.3 x 0.2 cm). The resection margin cannot be identified, grossly. Entirely submitted in 1. PATTI Leigh (ASCP) 01/23/2019 4:18 PM End of Report [facility] 01/22/2019 16:0 5 EDT 01/23/2019 16:05 EDT Giovana Motta MD PATHOLOGY ORDERABLES [facility] [address] [place] [address] documented in this encounter Visit Diagnoses Not on filedocumented in this encounter Care Teams Casting Assistant Relationship Specialty Start Date End Date Jena Minor NP PCP - General 06/30/15 08/15/22 documented as of this encounter
--- OUTSIDE RECORDS SUMMARY | 2024-06-03 20:23 | XMS_ITS | Encounter Summary ---
Author Organization [facility] Address [address] [place] [address] Care Team Providers Care Tool Machinist Name Role Phone Jena Minor NP Primary Care Provider [phone] Encounter Details Date Type Department Care Team (Late st Contact Info) Description 06/30/2015 11:52 EDT - 06/30/2015 14:16 EDT Emergency [facility] Emergency Department - Main Rena Lara [address], [place] [id number] Blake Antonio, PA-C [address] [place] [address] Emergency, MD Tara Foreign body of thumb, left, initial encounter (Primary Dx) Discharge Disposition: Home or Self Care Social [...] this encounter Discharge Instructions * Discharge Instructions* Blake Antonio PA - 06/30/2015 14:08 EDT X-ray shows no bony injury or retained foreign body. Nail was removed in the emergency room. Use Keflex as directed to prevent infection. For pain, use Motrin 800 mg 3 times daily, use hydrocodone aswell if needed. You are not given a tetanus booster today. If numbness or tingling or reduced range of motion in the thumb persists for more than 24 hours, call hand clinic for follow-up appointment. Return immediately for worsening or uncontrolled symptoms,otherwise followup with your PCP. documented in this encounter Medications at Time of Discharge Medication Sig Dispensed Refills Start Date End Date HYDROcodone-acetaminophen (NORCO) 5-325 mg tablet Take 1-2 Tabs by mouth every 6 hours as needed for Pain Daily Max: 8 Tabs 10 Tab 0 06/30/2015 cephALEXin (KEFLEX) 500 mg capsule Take 1 Cap by mouth 4 times daily for 5 days 28 Cap 0 06/30/2015 07/05/2015 documented as of this encounter Ordered Prescriptions Prescription Sig Dispensed Refills Start Date End Da te HYDROcodone-acetaminophen (NORCO) 5-325 mg tablet Take 1-2 Tabs by mouth every 6 hours as needed for Pain Daily Max: 8 Tabs 10 Tab 0 06/30/2015 cephALEXin (KEFLEX) 500 mg capsule Take 1 Cap by mouth 4 times daily for 5 days 28 Cap 0 06/30/2015 07/05/2015 documented in this encounter Discharge Disposition Disposition Code Departure Means Destination Home or Self Care documented in this encounter ED Notes * Tre Deutsch - 06/30/2015 1349 EDT Dressing applied to LEFT thumb with bacitracin. + CSMT's after dressing. * Blake Antonio PA - 06/30/2015 1325 EDTAssociated Order(s): FOREIGN BODY REMOVAL DOS: 06/30/2015 No chief complaint on file. HPI The patient is a 40 y.o. male who presents today with No chief complaint on file. HPI Comments: Chief complaint of foreign body left thumb. Patient shot a nail through the left thumb by accident early today. Up-to-date on tetanus booster. At some numbness and tingling distal to the injury. Denies other injury. The history is provided by the patient. Review of Systems Review of Systems All other systems reviewed and are negative. The patient's past medical, family and social history was reviewed and updated as needed. No Known Allergies Vital Signs Temp: 36.7 ??C (98.1 ??F) Temp src: Tympanic Pulse: 88 O2 Device: None (Room air) Physical Exam Constitutional: He is oriented to person, place, and time. He appears well- developed and well-nourished. No distress. HENT: Head: Normocephalic and atraumatic. Eyes: Pupils are equal, round, and reactive to light. Cardiovascular: Normal rate. Musculoskeletal: He exhibits tenderness. Neurological: He is alert and oriented to person, place, and time. Skin: Skin is warm and dry. No rash noted. No erythema. Psychiatric: He has a normal mood and affect. His behavior is normal. Judgment and thought content normal. Vitals reviewed. RESULTS FB Removal Date/Time: 06/30/2015 13:28 Performed by: PAConsent: Verbal consent obtained. Time out: Immediately prior to procedure a time out was called to verify the correct patient, procedure, equipment, support service tech and site/side marked as required, Body area: skin General location: upper extremity Location: left thumb Anesthesia: digital block Local anesthetic: bupivacaine 0.25% without epinephrine and lidocaine 1% without epinephrine Localization method: visualized Removal Mechanism: hemostatDressing: antibiotic ointment and dressing applied Tendon involvement: none Depth: deep Complexity: simple Number of Objects Recovered: 1 Objects Recovered: nail Post-procedure assessment: foreign body removed Patient tolerance: Patient tolerated the procedure well with no immediate complications ED COURSE A medical screening exam was performed. On exam, patient has a nail through and through the left thumb, distal phalanx just proximal to the nail. Initially had some numbness and tingling distally andreduced range of motion in the finger due to pressure and pain. Digital nerve block performed, x-ray confirms no apparent bony injury. Head of the nail clipped off and the nail was pulled through the wound. Repeat x-ray shows no retained foreign body or bony injury. Wound was irrigated extensively by nursing. Patient up-to-date on tetanus booster, given first dose of Keflex and a prescription. Also given Motrin and a prescription for Vicodin. Patient given instructions to follow-up with hand clinic if decreased range of motion or numbness and tingling persist ASSESSMENT AND PLAN Final diagnoses: Foreign body of thumb, left, initial encounter DISPOSITION: Discharged The patient's pain was managed to an adequate level weighing risk vs. benefit of further medications. Upon departure from the Emergency Department, the patient's pain was 2 on a zero to ten scale. Condition at departure from the Emergency Department: Stable PCP: Jena Minor [facility] Number of Diagnoses or Management Options Diagnosis management comments: 3 Amount and/or Complexity of Data Reviewed Tests in the radiology section of CPT??: reviewed and ordered Review and summarize past medical records: yes Page Yoandy 06/30/2015 14:12 No flowsheet data found. documented in this encounter Plan of Treatment Not on file documented as of this encounter Procedures Procedure Name Priority Date/Time Associated Diagnosis Comments FOREIGN BODY REMOVAL - EMBEDDED Routine 06/30/2015 14:12 EDT Foreign body of thumb, left, initial encounter FINGER 2 OR MORE VIEWS STAT 06/30/2015 13:28 EDT FINGER 2 OR MORE VIEWS STAT 06/30/2015 12:46 EDT documented in this encounter Results * FOREIGN BODY REMOVAL (06/30/2015 14:12 EDT) Narrative [facility] EKG - 06/30/2015 14:12 EDT Blake Antonio PA ? 06/30/2015 14:12 DOS: 06/30/2015 No chief complaint on file. HPI The patient is a 40 y.o. male who presents today with No chief complaint on file. HPI Comments: Chief complaint of foreign body left thumb. ?? Patient shot a nail through the left thumb by accident early today. ??Up-to-date on tetanus booster. ??At some numbness and tingling distal to the injury. ??Denies other injury. The history is provided by the patient. Review of Systems Review of Systems All other systems reviewed and are negative. The patient's past medical, family and social history was reviewed and updated as needed. No Known Allergies Vital Signs Temp: 36.7 ??C (98.1 ??F) Temp src: Tympanic Pulse: 88 O2 Device: None (Room air) Physical Exam Constitutional: He is oriented to person, place, and time. He appears well-developed and well-nourished. No distress. HENT: Head: Normocephalic and atraumatic. Eyes: Pupils are equal, round, and reactive to light. Cardiovascular: Normal rate. ?? Musculoskeletal: He exhibits tenderness. Neurological: He is alert and oriented to person, place, and time. Skin: Skin is warm and dry. No rash noted. No erythema. Psychiatric: He has a normal mood and affect. His behavior is normal. Judgment and thought content normal. Vitals reviewed. RESULTS FB Removal Date/Time: 06/30/2015 13:28 Performed by: PAConsent: Verbal consent obtained. Time out: Immediately prior to procedure a time out was called to verify the correct patient, procedure, equipment, support service tech and site/side marked as required, Body area: skin General location: upper extremity Location: left thumb Anesthesia: digital block Local anesthetic: bupivacaine 0.25% without epinephrine and lidocaine 1% without epinephrine Localization method: visualized Removal Mechanism: hemostatDressing: antibiotic ointment and dressing applied Tendon involvement: none Depth: deep Complexity: simple Number of Objects Recovered: 1 Objects Recovered: nail Post-procedure assessment: foreign body removed Patient tolerance: Patient tolerated the procedure well with no immediate complications ED COURSE A medical screening exam was performed. ??On exam, patient has a nail through and through the left thumb, distal phalanx just proximal to the nail. ??Initially had some numbness and tingling distally and reduced range of motion in the finger due to pressure and pain. ??Digital nerve block performed, x-ray confirms no apparent bony injury. ??Head of the nail clipped off and the nail was pulled through the wound. ??Repeat x-ray shows no retained foreign body or bony injury. ??Wound was irrigated extensively by nursing. ??Patient up-to-date on tetanus booster, given first dose of Keflex and a prescription. ??Also given Motrin and a prescription for Vicodin. ??Patient given instructions to follow-up with hand clinic if decreased range of motion or numbness and tingling persist ASSESSMENT AND PLAN Final diagnoses: Foreign body of thumb, left, initial encounter DISPOSITION: Discharged The patient's pain was managed to an adequate level weighing risk vs. benefit of further medications. Upon departure from the Emergency Department, the patient's pain was 2 on a zero to ten scale. Condition at departure from the Emergency Department: Stable PCP: ??Jena GORDON Number of Diagnoses or Management Options Diagnosis management comments: 3 Amount and/or Complexity of Data Reviewed Tests in the radiology section of CPT??: reviewed and ordered Review and summarize past medical records: yes Carrie Yoandy ?? 06/30/2015 14:12 No flowsheet data found. Blake Antonio PA-C PROCEDURE/MINOR SURG ICAL ORDERABLES [facility] EKG * FINGER 2 OR MORE VIEWS (06/30/2015 13:28 EDT) Anatomical Region Laterality Modality Other 06/30/2015 13:2 8 EDT 06/30/2015 13:40 EDT Narrative 06/30/2015 13:40 EDT FINGER 2 OR MORE VIEWS ??06/30/2015 1:28 PM Clinical History/Comments: FB removed, r/o retained foreign body or fracture. Findings: ?? There is no evidence of fracture, dislocation or bony deformity. ?? No radiopaque foreign bodies are seen. Impression: ?? Normal examination. Procedure Note Artemio Saini MD - 06/30/2015 FINGER 2 OR MORE VIEWS 06/30/2015 1:28 PM Clinical History/Comments: FB removed, r/o retained foreign body or fracture. Findings: There is no evidence of fracture, dislocation or bony deformity. No radiopaque foreign bodies are seen. Impression: Normal examination. Blake Antonio PA-C IMG DIAGNOSTIC IMAGI NG ORDERABLES * FINGER 2 OR MORE VIEWS (06/30/2015 12:46 EDT) Anatomical Region Laterality Modality Other 06/30/2015 12:4 6 EDT 06/30/2015 12:59 EDT Narrative 06/30/2015 12:59 EDT FINGER 2 OR MORE VIEWS ??06/30/2015 12:46 PM Signs and Symptoms/Comments: ?? nail vs thumb 3 views of the left lung demonstrate a nail traversing the mid-proximal aspect of the distal phalanx. ??A fracture is not appreciated. Procedure Note Artemio Campbell MD - 06/30/2015 FINGER 2 OR MORE VIEWS 06/30/2015 12:46 PM Signs and Symptoms/Comments: nail vs thumb 3 views of the left lung demonstrate a nail traversing the mid-proximal aspect of the distal phalanx. A fracture is not appreciated. Blake Antonio PA-C IMG DIAGNOSTIC IMAGI NG ORDERABLES documented in this encounter Visit Diagnoses Diagnosis Foreign body of thumb, left, initial encounter- Primary documented in this encounter Administered Medications Inactive Administered Medications - up to 3 most recent administrations Medication Order MAR Action Action Date Dose Rate Site cephALEXin (KEFLEX) capsule 500 mg 500 mg, oral, NOW X1, 1 dose, On Tue06/30/15 at 1330, STAT Given 06/30/2015 13:45 EDT 500 mg ibuprofen (MOTRIN) tablet 800 mg 800 mg, oral, NOW X1, 1 dose, On Tue06/30/15 at 1330, STAT Given 06/30/2015 13:38 EDT 800 mg documented in this encounter Active and Recently Administered Medications Times are shown in EDT. Scheduled Medication Order 06/28/2015 06/29/2015 06/30/2015 cephALEXin (KEFLEX) capsule 500 mg (COMPLETED) 500 mg, oral, NOW X1, 1 dose, On Tue06/30/15 at 1330, STAT 1345 (Given - Provid er: Dorys Bennett RN) ibuprofen (MOTRIN) tablet 800 mg (COMPLETED) 800 mg, oral, NOW X1, 1 dose, On Tue06/30/15 at 1330, STAT 1338 (Given - Provid er: Dorys Bennett RN) documented in this encounter Care Teams Tool Machinist Relationship Specialty Start Date End Date Jena Minor NP PCP - General 06/30/15 08/15/22 documented as of this encounter
--- OUTSIDE RECORDS SUMMARY | 2024-06-03 20:23 | XMS_ITS | Encounter Summary ---
Author Organization [facility] Address [address] [place] [address] Care Team Providers Care Medical Instructor Name Role Phone Unknown, Provider Primary Care Provider Encounter Details Date Type Department Care Team (Late st Contact Info) Description 08/18/2011 Results Only [facility] [phone] Xin Joyce MD [address] [address] Social History Tobacco Use Types Packs/Day Years Used Date Smoking Tobacco: Never Assessed Sex and Gender Information Value Date Recorded Sex Assigned at Not on file Gender Identity Not on file Sexual Orientation Not on file documented as of this encounter Plan of Treatment Not on file documented as of this encounter Procedures Procedure Name Priority Date/Time Associated Diagnosis Comments CYTOPATHOLOGY Routine 08/17/2011 0:00 EDT documented in this encounter Results * CYTOPATHOLOGY (08/17/2011 0:00 EDT) Pathology Report: CYTOPATHOLOGY REPORT Reports generated via electronic interface contain original data; however they are lacking the format of the original report. Caution should be taken when reading/interpreti ng unformatted reports. Name: ? GABRIEL STORM ? Accession #: ? [id number] : ? 1975 (Age: 36) ??M ?Collect Date: ? 08/17/2011 Location: ? [facility] ? Receive Date: ? 08/19/2011 Provider: ? XIN JOYCE MD Copy to: ?SELINA TABARES CQ DEVELOPER ? CYTOLOGIC DIAGNOSIS: ? Urine, voided, cytologic evaluation: - No malignant cells identified. Document reviewed and electronically signed by: ? Maryse Ruvalcaba MD PhD Report Date: ??08/19/2011 14:48 By the signature above, the attending physician certifies that he/she has personally conducted a gross and/or microscopic examination of the described specimens and rendered or confirmed the above diagnosis. Specimen Type: ? Urine, Voided Clinical History: ? Hematuria ? Gross Description: ? One vial of Cytolyt was received and processed by selective cellular enhancement technique. ? End of Report GUZMANCARMEL DHILLON 08/17/2011 08/19/2011 8:4 2 EDT Xin Joyce MD PATHOLOGY ORDERABLES Performing Organization Address City/State/[facility] Co de Phone Number THOMAS NARVAEZ [facility] [address] [place] [address] documented in this encounter Visit Diagnoses Not on filedocumented in this encounter Care Teams Medical Instructor Relationship Specialty Start Date End Date Unknown, Provider, PCP - General 08/19/11 06/29/15 documented as of this encounter
--- OUTSIDE RECORDS SUMMARY | 2024-06-03 20:23 | XMS_ITS | Encounter Summary ---
Author Organization [facility] Address [address] [place] [address] Care Team Providers Care Vp Data Name Role Phone Jena Minor NP Primary Care Provider [phone] Encounter Details Date Type Department Care Team (Late st Contact Info) Description 12/26/2019 Lab Requisition [facility] Pathology & Laboratory Medicine - [facility] [address] [place] [address] Unknown, Provider, Social History Tobacco Use Types Packs/Day Years [...] Diagnosis Comments HCV RNA DETECT QUANT Routine 12/26/2019 14:20 EST HEPATITIS B CORE ANTIBODY (TOTAL) Routine 12/26/2019 14:20 EST HEPATITIS B SURFACE ANTIBODY Routine 12/26/2019 14:20 EST HEPATITIS B SURFACE ANTIGEN Routine 12/26/2019 14:20 EST documented in this encounter Results * HEPATITIS B SURFACE ANTIBODY (12/26/2019 14:20 EST) Hep B Surface Ab, Quantitative 38.7 See Note mIU/mL 12/27/2019 12:01 [facility] Comment: Reference Range for Hep B Surface Ab, Quant: Positive: >= 10.0 mIU/mL Negative: ??< 10.0 mIU/mL Patient is presumed to be immune to infection with Hepatitis B Virus. Hep B Surface Ab, Qualitative Positive See Note 12/27/2019 12:01 [facility] Comment: Reference Range for Hep B Surface Ab, Qual: Unvaccinated: ??Negative Vaccinated: ??Positive Blood VENOUS BLOOD / Unknown 12/26/2019 14:20 EST 12/26/2019 20:43 EST Provider Unknown CHEMISTRY & BLOOD GA S ORDERABLES Performing Organization Address [facility] Co de Phone Number [facility] [address] [place] [address] * (ABNORMAL) HEPATITIS B CORE ANTIBODY (TOTAL) (12/26/2019 14:20 EST) Hepatitis B Core Ab, Total Positive( A) Negative 12/27/2019 12:12 [facility] Comment: A positive result for Hepatitis B Core Antibody (Total) indicates either a remote past infection with Hepatitis B Virus OR a Window period between disappearance of HBsAg and seroconversion to HBsAb. Blood VENOUS BLOOD / Unknown 12/26/2019 14:20 EST 12/26/2019 20:43 EST Provider Unknown CHEMISTRY & BLOOD GA S ORDERABLES Performing Organization Address City/[facility]/ZIP Co de Phone Number [facility] [address] [place] [address] * HEPATITIS B SURFACE ANTIGEN (12/26/2019 14:20 EST) Hep B Surface Ag Negative Negative 12/27/2019 13:29 EST [facility] Blood VENOUS BLOOD / Unknown 12/26/2019 14:20 EST 12/26/2019 20:43 EST Provider Unknown CHEMISTRY & BLOOD GA S ORDERABLES Performing Organization Address City/[facility] Co de Phone Number [facility] [address] [place] [address] * HCV RNA DETECT QUANT (12/26/2019 14:20 EST) HCV RNA Quantitative 0 Undetected IU/mL 12/27/2019 13:52 EST [facility] Comment: HCV RNA level is <15 IU/mL. ??This assay cannot accurately quantify HCV RNA below this level. Not Detected Blood VENOUS BLOOD / Unknown 12/26/2019 14:20 EST 12/26/2019 20:43 EST Narrative [facility] - 12/27/2019 13:52 EST The quantification range of this assay is 15 IU/mL to 100,000,000 IU/mL. ??Testing was performed on the RENATE Ampliprep/RENATE TaqMan HCV v2.0 ([employer] Provider Unknown MD CHEMISTRY & BLOOD GA S ORDERABLES [facility] [address] [place] [id number] documented in this encounter Visit Diagnoses Not on filedocumented in this encounter Care Teams Vp Data Relationship Specialty Start Date End Date Jena Minor NP PCP - General 06/30/15 08/15/22 documented as of this encounter
--- OUTSIDE RECORDS SUMMARY | 2024-06-03 20:23 | XMS_ITS | Encounter Summary ---
Author Organization [facility] Address [address] [place] [address] Care Team Providers Care Car Filler Name Role Phone Jena Minor NP Primary Care Provider [phone] Encounter Details Date Type Department Care Team (Late st Contact Info) Description 08/28/2021 Lab Requisition [facility] Pathology & Laboratory Medicine - [address] [address] Outr Resulting Lab, Provider Social History Tobacco [...] RNA DETECT QUANT Routine 08/28/2021 11:48 EDT documented in this encounter Results * HCV RNA DETECT QUANT (08/28/2021 11:48 EDT) HCV RNA Qualitative Undetected Undetected 08/31/2021 12:42 EDT [facility] Blood VENOUS BLOOD / Unknown 08/28/2021 11:48 EDT 08/28/2021 21:15 EDT Narrative [facility] - 08/31/2021 12:42 EDT New platform in use 06/01/2021 The quantification range of this assay is 15 IU/mL to 100,000,000 IU/mL. Testing was performed using the Michael HCV test ([employer] with the michael Openbravo0 System. Provider Outr Resulting Lab CHEMISTRY & BLOOD GAS ORDERABLES [facility] [address] [place] [address] documented in this encounter Visit Diagnoses Not on filedocumented in this encounter Care Teams Car Filler Relationship Specialty Start Date End Date Jena Minor NP PCP - General 06/30/15 08/15/22 documented as of this encounter
--- OUTSIDE RECORDS SUMMARY | 2024-06-03 20:23 | XMS_ITS | Encounter Summary ---
Author Organization [facility] Address [address] [place] [address] Care Team Providers Care Cigarette Paper Tester Name Role Phone Jena Minor NP Primary Care Provider [phone] Encounter Details Date Type Department Care Team (Late st Contact Info) Description 12/03/2020 Lab Requisition [facility] Pathology & Laboratory Medicine - [address] [address] Brie Loredo MD [address] [place] [address] DR [address] [place], [place] [id number] Encounter for other general examination Social History Tobacco Use Types Packs/Day Years [...] Priority Date/Time Associated Diagnosis Comments SURGICAL PATHOLOGY Today 12/03/2020 8: 07 EST Encounter for other general examination documented in this encounter Results * SURGICAL PATHOLOGY (12/03/2020 8:07 EST) Final Diagnosis A. RECTUM, HEMORRHOIDS, HEMORRHOIDECTOMY: - Consistent with hemorrhoids. - Rectal mucosa with features of mucosal prolapse. - Negative for dysplasia and malignancy. 12/08/2020 10:42 [facility] Attestation By the signature below, the attending physician certifies that they have 1) personally conducted a gross and/or microscopic examination of the described specimen(s), and/or personally interpreted the results of laboratory testing of the described specimen(s), and 2) personally rendered or confirmed the above diagnosis. 12/08/2020 10:42 [facility] at 1042 Clinical History Rectal mass 12/08/2020 10:42 [facility] Gross Description A. Received in formalin labelled with proper patient identification (initials B, J) and external hemorrhoid is an irregular piece of soft tissue (2.4 x 1.3 x 1.3 cm). One surface is covered by carbone-brown granular mucosa and ram-white wrinkled skin. The surgical margin is inked blue. The specimen is sectioned and entirely submitted in A1-A2. PATTI SCHWARZ(ASCP) 12/04/2020 8:43 12/08/2020 10:42 [facility] Performing Lab [facility] 12/08/2020 10:42 [facility] Scanned Images 12/08/2020 10:42 [facility] Tissue HEMORRHOIDS / Unknown 12/03/2020 8:07 EST 12/03/2020 17:16 EST Brie Loredo MD PATHOLOGY [facility] [address] [place] [address] documented in this encounter Visit Diagnoses Diagnosis Encounter for other general examination documented in this encounter Care Teams Cigarette Paper Tester Relationship Specialty Start Date End Date Jena Minor NP PCP - General 06/30/15 08/15/22 documented as of this encounter
--- OUTSIDE RECORDS SUMMARY | 2024-06-03 20:23 | XMS_ITS | Encounter Summary ---
Author Organization [facility] Address [address] [place] [address] Care Team Providers Care Switchboard Operator Helper Name Role Phone MinorJena houston TIFFANIE Primary Care Provider [phone] Encounter Details Date Type Department Care Team (Late st Contact Info) Description 01/31/2020 Lab Requisition [facility] Pathology & Laboratory Medicine - [address] [address] Chon Motta MD [address] [place], [place] [id number] Encounter for other general examination Social History [...] Date/Time Associated Diagnosis Comments SURGICAL PATHOLOGY Today 01/30/2020 11 :45 EDT Encounter for other general examination documented in this encounter Results * SURGICAL PATHOLOGY (01/30/2020 11:45 EDT) Final Diagnosis A. SKIN OF FACE, RIGHT NASAL ALA, SHAVE BIOPSY: - Prurigo nodularis. 02/01/2020 12:45 EDT [facility] at 1245 Attestation By the signature below, the attending physician certifies that they have 1) personally conducted a gross and/or microscopic examination of the described specimen(s), and/or personally interpreted the results of laboratory testing of the described specimen(s), and 2) personally rendered or confirmed the above diagnosis. 02/01/2020 12:45 [facility] at 1245 Clinical History Thickened ulceration in area of previous R nasal AK 02/01/2020 12:45 EDT [facility] Gross Description A. Received in formalin labelled with proper patient identification (initials B, J) and R nasal is a shave biopsy of ram-white bosselated skin (0.4 x 0.4 x 0.1 cm). The margin is inked blue. The tissue is bisected and entirely submitted in A1. Rika Jose Armando 01/31/2020 17:06 02/01/2020 12:45 EDT [facility] Scanned Images 02/01/2020 12:45 [facility] Tissue TISSUE SPECIMEN FROM SKIN / Unknown 01/30/2020 11:45 EDT 01/31/2020 16:53 EDT Chon Motta MD PATHOLOGY ORDERABLES [facility] [address] [place] [address] documented in this encounter Visit Diagnoses Diagnosis Encounter for other general examination documented in this encounter Care Teams Switchboard Operator Helper Relationship Specialty Start Date End Date Jena Minor NP PCP - General 06/30/15 08/15/22 documented as of this encounter
[2024-06-03 20:27] VITALS: BP 127/80; PULSE 102; RESP 16; TEMP 37.2; O2SAT 98
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
== END 2024-06-03 22:34 | disposition home or self-care (01) ==
PROVIDERS: Emergency Provider Physician Assistant; PCP Family Medicine
DX: M25.521 Pain in right elbow (principal); M67.823 Other specified disorders of tendon, right elbow; V28.41XA Electric (assisted) bicycle driver injured in noncollision transport accident in traffic accident, initial encounter
CPT/HCPCS: 99283; 73080

== ENCOUNTER 2024-08-28 00:56 | Outpatient (CLI) | payer MEDICAID, SELFPAY ==
--- NOTE | 2024-08-28 | DI.US_ITS ---
Exam(s) US SCROTUM EXAM: US SCROTUM CLINICAL HISTORY: PAIN LT TESTICLE, N50.812, SLOWLY INCREASING, SMALL PALPABLE ENLARGEMENT TECHNIQUE: Ultrasound of the testes performed using grayscale, color, and Doppler imaging. COMPARISON: None FINDINGS: RIGHT HEMISCROTUM: The right testicle exhibits normal size and echo architecture with no evidence of intratesticular mas s. Vascular flow was demonstrated within the right testicle, including arterial waveforms. There 2 spermatoceles in right epididymal head measuring 8 x 5 x 6 mm and 4 x 3 x 4 mm. There is no ipsilateral hydrocele nor varicocele. LEFT HEMISCROTUM: The left testicle exhibits normal size and echo architecture with no evidence of intratesticular mass . Vascular flow is demonstrated within the left testicle, including arterial waveforms. There are no epididymal head cysts on this side. However, there are few extratesticular cysts noted, the largest measuring 8 x 5 x 6 mm. Others measure 4 x 3 x 4 mm and 3 x 3 x 3 mm. One of these is the palpable extratesticular findings. There is no ipsilateral hydrocele or varicocele. IMPRESSION: 1. No evidence of intra testicular mass nor testicular torsion. 2. No hydroceles or varicoceles evident. 3. There are 3 small extratesticular benign cysts on the left side with measurements as above. One o f these corresponds to what patient is feeling. 4. There 2 benign epididymal head cysts on the opposite-right side with measurements as above. DATA REPOSITORY:
--- NOTE | 2024-08-28 15:12 | DI.RAD_ITS ---
Exam(s) XR WRIST LT COMPLETE EXAM: XR WRIST LT COMPLETE CLINICAL HISTORY: PAIN LT WRIST, M25.532, ARTHRITIS VS CALCIFICATION TENDON WORSE EXTENSION. TECHNIQUE: 2D digital imaging was performed of the left wrist. Three images were obtained. PA, obl ique and lateral views were obtained. COMPARISON: CR LEFT HAND COMPLETE from 07/27/2016 FINDINGS: BONES: No acute fracture is present. No bony destructive lesion is seen. JOINTS: The carpal bones are normally aligned. Joint spaces are well maintained. SOFT TISSUE: Normal. IMPRESSION: Unremarkable radiographs of the left wrist. DATA REPOSITORY: RADIATION DOSE DELIVERED:
== END 2024-08-28 01:16 ==
LOC: DI 00:56
PROVIDERS: PCP Family Medicine; Visit Provider Student in an Organized Health Care Education/Training Program
DX: M25.532 Pain in left wrist (principal); N50.812 Left testicular pain
CPT/HCPCS: 73110; 76870

== ENCOUNTER 2024-11-17 19:22 | Emergency (ER) | payer MEDICAID, SELFPAY ==
[2024-11-17 19:25] VITALS: BP 170/108; PULSE 101; RESP 22; TEMP 36.4; O2SAT 98
[2024-11-17 19:47] LABS: Bilirubin Negative (Negative); Blood Negative (Negative); Clarity Clear (Clear); Glucose Negative (Negative); Ketones Negative (Negative); Leukocyte Esterase Negative (Negative); Nitrite Negative (Negative); Specific Gravity 1.025 (1.005-1.025); Urobilinogen 0.2 mg/dL (Up to 0.2)
[2024-11-17 20:02] LABS: *AMPHETAMINES SCREEN URINE Positive (Negative); *BARBITURATES SCREEN URINE Negative (Negative); *BENZODIAZEPINES SCREEN URINE Negative (Negative); Cannabinoids THC Positive (Negative); Cocaine Screen,Urine Negative (Negative); METHADONE URINE SCREEN Negative (Negative); OPIATES URINE SCREEN Negative (Negative)
[2024-11-17 20:05] LABS: Tricyclic Antidepressants Negative (Negative)
[2024-11-17 20:23] LABS: Abs Immature Grans 0.04 10^3/uL (0.0-0.06); Absolute Basophil Count 0.04 10^3/uL (0.0-0.2); Absolute Eosinophil Count 0.28 10^3/uL (0.0-0.7); Absolute Lymphocyte Count 2.75 10^3/uL (1.2-3.4); Absolute Monocyte Count 0.41 10^3/uL (0.1-0.8); Basophils % 0.5 %; Eosinophils % 3.4 %; HCT 41.9 % (40.0-50.0); HGB 14.7 g/dL (13.5-17.5); Immature Grans % 0.5 %; Lymphocytes % 33.9 %; MCH 31.3 pg (27.0-33.0); MCHC 35.1 % (32.0-36.0); MCV 89 fL (80-95); MPV 8.4 fL (8.0-11.0); Neutrophils % 56.7 %; Platelet Count 278 10^3/uL (130-400); RDW 12.2 % (11.8-14.1); RDW-SD 40.1 fL; WBC 8.12 10^3/uL (4.4-10.8)
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
[2024-11-17 20:39] LABS: ALT 33 U/L (16-63); AST 23 U/L (15-37); Albumin 4.3 g/dL (3.4-5.0); Alkaline Phosphatase 99 U/L (46-116); Anion Gap 11.5 mmol/L (3-11); BUN 11 mg/dL (7-18); Bilirubin, Total 0.34 mg/dL (0.2-1.0); CO2 27.5 mmol/L (21.0-32.0); CREATININE 0.9 mg/dL (0.70-1.30); Calcium 9.1 mg/dL (8.5-10.1); Chloride 106 mmol/L (98-107); ETHANOL BLOOD 62.3 mg/dL (<10); Estimated GFR 106.01 (mL/min/1.73m2); Glucose 98 mg/dL (74-106); Potassium 3.4 mmol/L (3.5-5.1); Sodium 145 mmol/L (136-145)
[2024-11-17 20:49] LABS: Acetaminophen < 2 ug/mL (10-30); Salicylate 4.9 mg/dL (<2.8)
--- NOTE | 2024-11-17 20:49 | ED.GENADUL_ITS ---
Discharge Plan Discharge Details Chief Complaint: PsychEval Primary Care Provider: Chon Motta ED Provider: Ramón Owen Home Meds and New Rx's Prescriptions: No Action dextroamphetamine-amphetamine [Adderall XR] 20 mg capsule,extended release 24hr 40 mg PO DAILY Patient Comments: does not have a doctor to prescribe 06/03/24 ibuprofen 800 mg tablet 800 mg PO Q8H PRN Patient Comments: TAKE ONE TABLET BY MOUTH THREE TIMES A DAY WITH FOOD ropinirole 4 mg tablet 4 mg PO DAILY Patient Comments: TAKE ONE TABLET BY MOUTH EVERY EVENING HPI General Mode of arrival: ambulatory . Date/Time Provider Initiated Documentation: 11/17/24 19:23 . Limitations to Documentation: no limitations . Information obtained by: patient and RN notes reviewed . History of Present Illness 49 year old M presents to the emergency department with the chief complaint of Emotionally distraught due to custody issues with ex, Patient notes no other symptoms.. Related Data Home Medications ?Medication ?Instructions ?Recorded ?Confirmed dextroamphetamine-amphetamine ER 40 mg PO DAILY 05/30/23 11/17/24 20 mg 24hr capsule,extend release (Adderall XR) ibuprofen 800 mg tablet 800 mg PO Q8H PRN 11/17/24 11/17/24 ropinirole 4 mg tablet 4 mg PO DAILY 11/17/24 11/17/24 Allergies Allergy/AdvReac Type Severity Reaction Status Date / Time gabapentin Allergy Intermediate Itching, Unverified 11/17/24 19:39 jumpy vancomycin AdvReac Severe DRESS Verified 11/17/24 19:39 SYNDROME General Stated Complaint: PsychEval CY: 2 Review of Systems Constitutional Constitutional: Denies chills and Denies fever(s) Cardiovascular Cardiovascular: Denies chest pain Respiratory Respiratory: Denies cough Gastrointestinal Gastrointestinal: Denies abdominal pain Psychiatric Psychiatric: Reports as per HPI, Reports irritability, Denies visual hallucinations, Denies hallucinations, Reports homicidal ideation and Reports suicidal ideation Exam Const General: cooperative Orientation: alert, awake and oriented x3 HENMT Head: normal to inspection, normocephalic and atraumatic Ears: hearing grossly normal bilaterally Mouth: moist mucous membranes Eyes General: appearance normal, both eyes and all related structures Pupils: PERRL EOM: EOM intact bilaterally Resp Effort & Inspection: normal respiratory effort, able to speak in complete sentences and no respiratory distress Auscultation: clear to auscultation bilaterally Cardio Rate: regular rate and not tachycardic Rhythm: regular rhythm Heart Sounds: S1 normal, S2 normal, no click, no gallops, no murmurs and no rubs Neuro General: patient alert, patient awake, patient oriented x3, gait normal, moves all extremities and no focal motor deficits Cognition: normal cognition Psych Appearance: disheveled Speech and Movement: agitated Mood: anxious mood Affect: animated and anxious affect Attitude: guarded Thought Process: circumstantial Thought Content: no hallucinations, homicidality and suicidality Course Vital Signs Vital signs: Vital Signs Temperature 36.4 C L 11/17/24 19:25 Pulse 101 H 11/17/24 19:25 Respiratory Rate 22 11/17/24 19:25 Blood Pressure 170/108 H 11/17/24 19:25 Pulse Oximetry 98 11/17/24 19:25 Temperature 36.4 C L 11/17/24 19:25 Pulse 101 H 11/17/24 19:25 Respiratory Rate 22 11/17/24 19:25 Blood Pressure 170/108 H 11/17/24 19:25 Blood Pressure Position Sitting 11/17/24 19:25 Pulse Oximetry 98 11/17/24 19:25 Oxygen Delivery Method Room Air 11/17/24 19:25 Oxygen Flow Rate 0 11/17/24 19:25 Pain Level 0 11/17/24 19:25 Lab/Test Results Lab/Test Results: Laboratory Tests Range/Units 11/17/24 11/17/24 19:32 20:16 WBC (4.4-10.8) 10^3/uL 8.12 RBC (4.36-5.78) 10^6/uL 4.70 Hgb (13.5-17.5) g/dL 14.7 Hct (40.0-50.0) % 41.9 MCV (80-95) fL 89 MCH (27.0-33.0) pg 31.3 MCHC (32.0-36.0) % 35.1 RDW (11.8-14.1) % 12.2 Plt Count (130-400) 10^3/uL 278 MPV (8.0-11.0) fL 8.4 Immature Gran % % 0.5 Neutrophils % % 56.7 Lymphocytes % % 33.9 Monocytes % % 5.0 Eosinophils % % 3.4 Basophils % % 0.5 Nucleated RBC % (0.0-0.3) % 0.0 Absolute Neutrophils (1.2-6.7) 10^3/uL 4.60 Absolute Lymphocytes (1.2-3.4) 10^3/uL 2.75 Absolute Monocytes (0.1-0.8) 10^3/uL 0.41 Absolute Eosinophils (0.0-0.7) 10^3/uL 0.28 Absolute Basophils (0.0-0.2) 10^3/uL 0.04 Sodium (136-145) mmol/L 145 Potassium (3.5-5.1) mmol/L 3.4 L Chloride (98-107) mmol/L 106 Carbon Dioxide (21.0-32.0) mmol/L 27.5 Anion Gap (3-11) mmol/L 11.5 H BUN (7-18) mg/dL 11 Creatinine (0.70-1.30) mg/dL 0.9 Est GFR (CKD-EPI 2020) (mL/min/1.73m2) 106.01 Glucose (74-106) mg/dL 98 Calcium (8.5-10.1) mg/dL 9.1 Total Bilirubin (0.2-1.0) mg/dL 0.34 AST (15-37) U/L 23 ALT (16-63) U/L 33 Alkaline Phosphatase (46-116) U/L 99 Total Protein (6.4-8.2) g/dL 8.0 Albumin (3.4-5.0) g/dL 4.3 Urine Color (Yellow) Yellow Urine Clarity (Clear) Clear Urine pH (5-8) 6.0 Ur Specific [place] (1.005-1.025) 1.025 Urine Protein (Neg-Trace) mg/dL Negative Urine Ketones (Negative) mg/dL Negative Urine Blood (Negative) Negative Urine Nitrite (Negative) Negative Urine Bilirubin (Negative) Negative Urine Urobilinogen (Up to 0.2) mg/dL 0.2 Ur Leukocyte Esterase (Negative) Negative Urine Glucose (Negative) mg/dL Negative Urine Opiates Screen (Negative) Negative Urine Methadone Screen (Negative) Negative Ur Barbiturates Screen (Negative) Negative Ur Tricyclics Screen (Negative) Negative Ur Amphetamines Screen (Negative) Positive A U Benzodiazepines Scrn (Negative) Negative Urine Cocaine Screen (Negative) Negative Ur THC Screen (Negative) Positive A Ethyl Alcohol (<10) mg/dL 62.3 H Medical Decision Making Patient presenting to the emergency department for chief complaint of significant aggravation due to early stages of custody casanova with ex. Patient reports that his ex's parents will not allow him to see his children which she is very upset about. Due to being upset he has made statements of homicidal intent and suicidal intent given the circumstances. Patient denies any specific plan but more states significant stress over the situation and hopelessness. Patient denies any physical symptoms does state that he has been drinking some today and occasionally uses marijuana otherwise only takes his prescribed ADD medication. Physical exam shows no obvious metabolic source and seems more situational. Given suicidal homicidal statements and alcohol and potential drug intake will perform labs and UDS. Patient labs reviewed and unremarkable CBC, CMP shows slight decreased potassium at 3.4 so we will give oral repletion and UDS is positive for THC and amphetamines but patient is prescribed amphetamines for ADD. Ethanol alcohol is 62.3 so will allow appropriate time before consulting mental health otherwise patient is medically clear. Pending mental health consult patient became slightly anxious so we will give very low-dose of Ativan pending consult Lab Data Lab results reviewed: Yes I reviewed the patient's lab results. Quality:SDOH Health Related Social Needs: No Data to Display PFSH All Active Problems COVID (Acute) Hepatitis C (Chronic) HSV (herpes simplex virus) anogenital infection (Acute) Alcohol abuse (Chronic) Actinic keratosis (Acute) Exposure to hepatitis B (Acute) Cocaine abuse (Acute) Opioid abuse (Acute) Hemorrhoids (Acute) Erectile dysfunction (Acute) ADHD (Acute) Ulnar neuropathy (Acute) Restless legs (Acute) Rotator cuff syndrome (Acute) Fall (on) (from) other stairs and steps, initial encounter (Acute) Thoracic back sprain (Acute) Fever (Acute) Red man syndrome (Acute) Rectal lesion (Acute) Headache (Acute) Elevated bilirubin (Acute) Vitiligo (Acute) Tobacco abuse (Acute) Hepatitis C antibody test positive (Acute) IV drug abuse (Acute) Bacteremia (Acute) Medical History Hepatitis B Arthralgia of left acromioclavicular joint (05/18/17) Closed fracture of ankle (11/08/13) Incomplete tear of left rotator cuff (04/25/17) Pulmonary nodule Alcohol abuse, in remission Depression Prurigo nodularis Trochanteric bursitis Bullous skin disease DRESS syndrome Insomnia Endocarditis Surgical History S/P hemorrhoidectomy H/O arthroscopy of shoulder Left shoulder. Social History Smoking/Tobacco Use Status: Current every day Tobacco Type: cigarettes Smoking risk assessment performed?: Yes Alcohol Intake: current Alcohol Intake frequency: a few times a week Alcohol type: beer Drug use: Daily Substance use type: marijuana and other Details: Current IVDA. Details: Pt. states just marijuana Housing: house Current gender identity: male Do you feel safe at home: Yes Do you feel safe in your relationship?: Yes
[2024-11-17] MEDS: Potassium Chloride 10 MEQ TABCR PO (21:05)
[2024-11-17] MEDS: LORazepam 0.5 MG TAB PO (21:51)
--- NOTE | 2024-11-18 00:33 | ED.PROG_ITS ---
Date of service: 11/18/24 Time of Service: 00:36 Medical Decision Making Patient was seen by [facility]. Safety plan was done. The patient will be discharged home with safety plan. the treatment plan and discharge instructions were reviewed with the patient. I have addressed all patient concerns at this time. The patient was made aware of what symptoms to monitor for that would warrant a return to the emergency department. Discussed the plan with the patient, they demonstrate verbal understanding and agreement with our assessment and plan at this time. The documentation in this chart was dictated using [employer] dictation software. Please excuse any dictation errors. Quality:SDOH Health Related Social Needs: No Data to Display Discharge Plan Disposition Patient Disposition: Home Condition: Good Discharge Details Clinical Impression: Depression Primary Care Provider: Chon Motta ED Provider: Ramón Owen Home Meds and New Rx's Prescriptions: No Action dextroamphetamine-amphetamine [Adderall XR] 20 mg capsule,extended release 24hr 40 mg PO DAILY Patient Comments: does not have a doctor to prescribe 06/03/24 ibuprofen 800 mg tablet 800 mg PO Q8H PRN Patient Comments: TAKE ONE TABLET BY MOUTH THREE TIMES A DAY WITH FOOD ropinirole 4 mg tablet 4 mg PO DAILY Patient Comments: TAKE ONE TABLET BY MOUTH EVERY EVENING Discharge Instructions Instructions: Depression, Adult ED Additional Instructions: Please abide by her safety plan. If you notice any worsening of your symptoms, or any new symptoms such as vomiting, diarrhea, fever, chills, shortness of breath, chest pain, numbness, weakness, or fainting , please return immediately to the emergency department for reevaluation. Please follow up with your primary care provider as soon as possible for reassessment and reevaluation. As always, it was a pleasure participating in your medical care today. Referrals: Chon Motta [Primary Care Provider] -
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
== END 2024-11-18 00:55 | disposition home or self-care (01) ==
PROVIDERS: Nurse Practitioner Family; Emergency Provider Student in an Organized Health Care Education/Training Program; PCP Family Medicine
DX: F32.A Depression, unspecified (principal); F17.210 Nicotine dependence, cigarettes, uncomplicated; F10.10 Alcohol abuse, uncomplicated
CPT/HCPCS: 00123; 80053; 80307; 96127; 99285; 80320; 80329; 81003; 85025; 99284

== ENCOUNTER 2024-12-13 20:04 | Outpatient (REF) | payer MEDICAID, SELFPAY ==
[2024-12-18 07:44] LABS: Benzoylecgonine Negative ng/mL (Cutoff: 50); Cocaine Negative ng/mL (Cutoff: 50); Cocaine Interpretation Negative.
== END 2024-12-13 20:05 | disposition home or self-care (01) ==
LOC: NCHCN 20:04
PROVIDERS: PCP Nurse Practitioner; Visit Provider Student in an Organized Health Care Education/Training Program
DX: F14.10 Cocaine abuse, uncomplicated (principal); Z79.891 Long term (current) use of opiate analgesic
CPT/HCPCS: 80353

== ENCOUNTER 2025-05-27 14:50 | Outpatient (REF) | payer MEDICAID, SELFPAY ==
[2025-05-27 19:03] LABS: ALT 29 U/L (16-63); AST 18 U/L (15-37); Albumin 4.3 g/dL (3.4-5.0); Alkaline Phosphatase 129 U/L (46-116); Anion Gap 9.8 mmol/L (3-11); BUN 16 mg/dL (7-18); Bilirubin, Total 0.3 mg/dL (0.2-1.0); CO2 25.2 mmol/L (21.0-32.0); Calcium 9.2 mg/dL (8.5-10.1); Chloride 103 mmol/L (98-107); Estimated GFR 113.66 (mL/min/1.73m2); Glucose 102 mg/dL (74-106); Potassium 4.5 mmol/L (3.5-5.1); Sodium 138 mmol/L (136-145); Total Protein 7.7 g/dL (6.4-8.2)
[2025-05-28 19:32] LABS: HIV-1/2 Ag & Ab Screen Negative (Negative)
[2025-05-28 19:46] LABS: Hepatitis C Ab w Rflx HCV PCR Reactive (Negative)
[2025-05-29 10:43] LABS: Syphilis Serology (RPR) Negative (Negative)
[2025-06-18 11:07] LABS: MDA (Ecstasy Metabolite) Negative ng/mL (Cutoff: 25); Pseudoephedrine/Ephedrine Negative ng/mL (Cutoff: 25)
[2025-06-18 11:09] LABS: Amphetamines Interpretation Positive
== END 2025-05-27 14:51 | disposition home or self-care (01) ==
LOC: NCHCN 14:50
PROVIDERS: PCP Nurse Practitioner; Visit Provider Student in an Organized Health Care Education/Training Program
DX: E78.5 Hyperlipidemia, unspecified (principal); Z11.3 Encounter for screening for infections with a predominantly sexual mode of transmission; F90.2 Attention-deficit hyperactivity disorder, combined type; Z79.899 Other long term (current) drug therapy
CPT/HCPCS: 80053; 80324; 86803; 87389; 87522; 86592

== ENCOUNTER 2025-07-10 10:35 | Outpatient (REF) | payer MEDICAID, SELFPAY ==
[2025-07-11 11:33] LABS: Chlamydia Result Negative (Negative); GC Result Negative (Negative)
== END 2025-07-10 10:36 | disposition home or self-care (01) ==
LOC: NCHCN 10:35
PROVIDERS: PCP Nurse Practitioner; Visit Provider Student in an Organized Health Care Education/Training Program
DX: Z11.59 Encounter for screening for other viral diseases (principal)
CPT/HCPCS: 87491; 87591